=== PATIENT | male | born 1970 | race Caucasian/White ===

== ENCOUNTER 2017-09-16 13:33 | Emergency (ER) | payer OTHER, SELFPAY ==
[2017-09-16 13:34] VITALS: BP 146/88; PULSE 87; RESP 24; TEMP 36; O2SAT 96; BMI 38.9
--- NOTE | 2017-09-16 15:04 | RAD_ITS ---
STUDY: X-RAY - ABDOMEN/PELVIS REASON FOR EXAM: Male, 47 years old. Constipation. Recent gastric sleeve surgery. TECHNIQUE: Two AP supine views of the abdomen and pelvis. COMPARISON: None. FINDINGS: Normal visualized lung bases. There is a moderate amount of colonic fecal material. The visualized liver, spleen and kidneys are grossly normal in size and morphology. Normal soft tissue structures. There are diffuse degenerative changes of the visualized lumbar spine. RAD/Abdomen Single View IMPRESSION: Moderate degree of fecal material is seen in the colon. Electronically Signed: Thor Garcia MD at 15:30 EDT Tel [phone], Service support ,
--- NOTE | 2017-09-16 16:33 | ED.DCSUM_ITS ---
- ER Visit Summary Date of Service: 09/16/17 Chief Complaint: Constipation History of Present Illness: The patient is a [address] Beatty. Patient had a gastric sleeve placed September 02 at [facility]. He reports that he had been taking only liquids until 3 days ago when he began taking some solids. Reports he has not had a bowel movement for the past 3 days. States that he feels as though he needs to go but that it is too big and hard to pass. He denies any abdominal pain. No nausea or vomiting. Review of systems is otherwise negative. Physical Examination: Vitals: Stable. Afebrile. General: Well-nourished and well-developed. Head: Normocephalic atraumatic. Neck: Supple, no lymphadenopathy. No JVD. Nontender. Cardiovascular: Regular rate and rhythm. No murmurs. Respiratory: No respiratory distress. Clear to auscultation bilaterally. Abdominal: Soft, nontender, nondistended, normal bowel sounds. No guarding, rebound, or peritoneal signs. Rectal: Soft, brown stool in the vault. Back: Nontender. Extremities: Nontender, no edema. Skin: Normal color, no rash. Neurologic: Alert and oriented ?3. Cranial nerves II through XII are intact. Normal strength and sensation. Psych: Normal affect. Test Results: Three-view of the abdomen shows a nonspecific bowel gas pattern with a large amount of stool in the rectum. Emergency Department Course and Treatment: Patient refused pain or nausea medications. He had a soapsuds enema with large results. Treatment Plan: Patient will be discharged with magnesium citrate. Instructed to follow-up Dr. Beatty in 1-2 days not improving. Return to the emergency department for any worsening symptoms. Disposition: To home in improved and stable condition. Impression: 1. Constipation. 2. 14 day status post gastric sleeve. This note was generated with [employer] dictation software. It may contain incorrect words, spelling, and punctuation that were not noted in review of the chart prior to signing ED Disposition - Plan for ED Patient: Disposition: Home or Assisted Living Chief Complaint: Constipation Instructions: ED Constipation Prescriptions: Magnesium Citrate [Citrate Of Magnesia] 300 ml PO X1 #300 ml Referrals: Renzo Beatty, [Primary Care Provider] - 1-2 Days if not improving
[2017-09-16 16:46] VITALS: BP 139/83; PULSE 75; RESP 18; O2SAT 99
== END 2017-09-16 16:46 | disposition home or self-care (01) ==
PROVIDERS: Emergency Provider Emergency Medicine; Family Provider Family Medicine; PCP Family Medicine
DX: K59.00 Constipation, unspecified (principal); E11.9 Type 2 diabetes mellitus without complications; I10 Essential (primary) hypertension; Z98.84 Bariatric surgery status
CPT/HCPCS: 74018; 99284

== ENCOUNTER → 2017-10-24 07:24 | Outpatient (CLI) | payer OTHER, SELFPAY ==
[2017-10-24 08:25] LABS: Hematocrit 46.8 % (40-54); Hemoglobin 15.3 g/dl (13.0-16.5); Mean Corp Hgb Conc 32.7 g/gl (32-36); Mean Corpuscular Hgb 29.7 pg (27.0-32.0); Mean Corpuscular Volume 90.7 fL (80-94); Mean Platelet Vol. 11.7 fl (6.2-12.0); Platelet Count 170 K/mm3 (150-450); RBC Distribution Width CV 14.8 % (11.6-14.6); RBC Distribution Width SD 49.1 fl (35.1-43.9); Red Blood Count 5.16 M/mm3 (4.6-6.2); White Blood Count 3.5 K/mm3 (4.4-11.0)
[2017-10-24 08:29] LABS: Scan Indicated on CBC? Y/N NO
[2017-10-24 09:02] LABS: PTHIN 28.4 pg/mL (18.4-80.1); Vitamin B12 476 pg/mL (211-911); Vitamin D,25 Hydroxy 44.5 ng/mL (29.95-100.01)
[2017-10-24 09:33] LABS: Anion Gap 8 (5-15); BUN 15 mg/dL (7-18); BUN/Creat Ratio 15.4 RATIO (10-20); Calcium,Total 8.9 mg/dL (8.5-10.1); Chloride 108 mmol/L (98-107); Creatinine, Serum 0.97 mg/dL (0.70-1.30); EST Glomerular Filtration Rate 87 mL/min (>60); Est Glom Filt Rate - Afr Amer 105 mL/min (>60); Ferritin 255 ng/mL (26-388); Glucose 79 mg/dL (74-106); Iron 73 ug/dL (65-175); Iron Binding Capacity,Total 308 ug/dL (250-450); Potassium 3.8 mmol/L (3.5-5.1); Sodium Level 143 mmol/L (136-145)
[2017-10-28 09:58] LABS: Vitamin B1, Thiamine 157.6 nmol/L (66.5-200.0)
== END ==
PROVIDERS: Family Provider Family Medicine; PCP Family Medicine
DX: E56.9 Vitamin deficiency, unspecified (principal); Z98.84 Bariatric surgery status
CPT/HCPCS: 80048; 82306; 82607; 82728; 82746; 83540; 83550; 83970; 84425; 85027

== ENCOUNTER 2017-11-26 19:38 | Emergency (ER) | payer OTHER, SELFPAY ==
[2017-11-26 19:39] VITALS: BP 140/96; PULSE 61; RESP 16; TEMP 35.9; O2SAT 100; BMI 34.8
--- NOTE | 2017-11-26 20:00 | ED.VISSUMM ---
- ER Visit Summary Date of Service: 11/26/17 Chief Complaint: Left ring finger laceration History of Present Illness: The patient is a 47 M was cutting vegetables 1-2 hours ago. He denies any cut the tip of the left ring finger. Patient is right-hand dominant. Has no idea when his last tetanus shot was and believes it may be greater than 10 years ago. Denies other injuries. Physical Examination: Well-appearing middle-age male. No acute distress. Vital signs stable afebrile. HEENT exam unremarkable. Lungs clear to auscultation. Heart regular rhythm no murmur. Abdomen soft nontender. Moving all 4 extremities. Neurovascularly intact. The very tip of his left ring finger is a flap laceration is currently closed no longer bleeding. Otherwise the hand is neurovascularly infection. He has normal range of motion. Normal touch sensation. Test Results: None Emergency Department Course and Treatment: Tetanus will be updated. Wound will be cleaned and dressed. No need to suture repair. Treatment Plan: Clean and dressed. Wound care. Disposition: Discharge Impression: Left ring finger flap laceration no repair Tetanus updated This note was generated with [employer] dictation software. It may contain incorrect words, spelling, and punctuation that were not noted in review of the chart prior to signing ED Disposition - Plan for ED Patient: Chief Complaint: Laceration Referrals: Renzo Beatty DO [Primary Care Provider] -
--- NOTE | 2017-11-26 20:02 | ED.DEP ---
ED Disposition - Plan for ED Patient: Disposition: Home or Assisted Living Chief Complaint: Laceration Instructions: ED Laceration Hand Referrals: Renzo Beatty DO [Primary Care Provider] - As Needed Additional Instructions: Keep dressing dry and clean. Do not remove the dressing for 4 days as well as his stays dry and clean.
== END 2017-11-26 20:16 | disposition home or self-care (01) ==
PROVIDERS: Emergency Provider Emergency Medicine; Family Provider Family Medicine; PCP Family Medicine
DX: S61.215A Laceration without foreign body of left ring finger without damage to nail, initial encounter (principal); W26.0XXA Contact with knife, initial encounter; Y93.9 Activity, unspecified; Y92.89 Other specified places as the place of occurrence of the external cause; Y99.9 Unspecified external cause status; Z23 Encounter for immunization; K21.9 Gastro-esophageal reflux disease without esophagitis
CPT/HCPCS: 99282

== ENCOUNTER → 2017-12-06 09:37 | Outpatient (CLI) | payer OTHER, SELFPAY ==
[2017-12-06 10:51] LABS: Hematocrit 45.2 % (40-54); Hemoglobin 15.3 g/dl (13.0-16.5); Mean Corp Hgb Conc 33.8 g/gl (32-36); Mean Corpuscular Hgb 30.8 pg (27.0-32.0); Mean Corpuscular Volume 91.1 fL (80-94); Mean Platelet Vol. 11.4 fl (6.2-12.0); Platelet Count 185 K/mm3 (150-450); RBC Distribution Width CV 14.1 % (11.6-14.6); RBC Distribution Width SD 46.3 fl (35.1-43.9); Red Blood Count 4.96 M/mm3 (4.6-6.2); White Blood Count 4.8 K/mm3 (4.4-11.0)
[2017-12-06 10:53] LABS: Scan Indicated on CBC? Y/N NO
[2017-12-06 11:44] LABS: Anion Gap 7 (5-15); BUN 15 mg/dL (7-18); BUN/Creat Ratio 17.2 RATIO (10-20); Calcium,Total 8.7 mg/dL (8.5-10.1); Chloride 106 mmol/L (98-107); Creatinine, Serum 0.87 mg/dL (0.70-1.30); EST Glomerular Filtration Rate 99 mL/min (>60); Est Glom Filt Rate - Afr Amer 120 mL/min (>60); Ferritin 186 ng/mL (26-388); Glucose 77 mg/dL (74-106); Iron 62 ug/dL (65-175); Iron Binding Capacity,Total 288 ug/dL (250-450); PERCENT IRON SATURATION 21.5 % (15.0-55.0); Sodium Level 143 mmol/L (136-145)
[2017-12-08 09:07] LABS: Vitamin B12 462 pg/mL (211-911)
== END ==
PROVIDERS: Family Provider Family Medicine; PCP Family Medicine
DX: E56.9 Vitamin deficiency, unspecified (principal); Z98.84 Bariatric surgery status
CPT/HCPCS: 36415; 80048; 82607; 82728; 82746; 83540; 83550; 84425; 85027

== ENCOUNTER → 2017-12-31 07:14 | Outpatient (CLI) | payer OTHER, SELFPAY ==
[2017-12-31 08:22] LABS: Absolute Lymphocyte Count 1.95 X10^3/ul (0.83-4.51); Absolute Neutrophil Count 4.5 X10^3/uL (2.0-7.7); Basophil# 0.02 X10^3/uL; Basophil% 0.3 % (0-1); Eosinophil# 0.08 X10^3/uL; Eosinophils% 1.1 % (0-5); Hematocrit 47.7 % (40-54); Hemoglobin 15.5 g/dl (13.0-16.5); Lymphocyte # 1.95 X10^3/ul (4.0); Lymphocyte % 27.6 % (19-41); Mean Corp Hgb Conc 32.5 g/gl (32-36); Mean Corpuscular Hgb 29.7 pg (27.0-32.0); Mean Corpuscular Volume 91.4 fL (80-94); Mean Platelet Vol. 11.5 fl (6.2-12.0); Monocyte# 0.54 X10^3/uL; Monocyte% 7.6 % (0-10); Neutrophil # 4.47 X10^3/uL (2.7-7.7); Neutrophil % 63.4 % (47-70); Platelet Count 234 K/mm3 (150-450); RBC Distribution Width CV 13.6 % (11.6-14.6); RBC Distribution Width SD 45.3 fl (35.1-43.9); Red Blood Count 5.22 M/mm3 (4.6-6.2); White Blood Count 7.1 K/mm3 (4.4-11.0)
[2017-12-31 08:24] LABS: Hemoglobin A1c 4.8 % (4.2-6.3)
[2017-12-31 08:34] LABS: POSITIVE COUNT NO; POSITIVE DIFFERENTIAL NO; POSITIVE MORPHOLOGY NO
[2017-12-31 08:37] LABS: Anion Gap 9 (5-15); BUN 15 mg/dL (7-18); BUN/Creat Ratio 16.9 RATIO (10-20); Calcium,Total 9.2 mg/dL (8.5-10.1); Chloride 107 mmol/L (98-107); Cholesterol 155 mg/dL (200); Creatinine, Serum 0.89 mg/dL (0.70-1.30); EST Glomerular Filtration Rate 96 mL/min (>60); Est Glom Filt Rate - Afr Amer 117 mL/min (>60); Ferritin 180 ng/mL (26-388); Glucose 82 mg/dL (74-106); High Density Lipoprotein 49 mg/dL; Iron 106 ug/dL (65-175); Potassium 3.8 mmol/L (3.5-5.1); Sodium Level 146 mmol/L (136-145); Triglycerides 98 mg/dL; Very Low Density Lipoprotein 20 mg/dL (5-40)
[2017-12-31 08:47] LABS: Vitamin B12 548 pg/mL (211-911)
== END ==
PROVIDERS: Family Provider Family Medicine; PCP Family Medicine; Visit Provider Family Medicine
DX: E11.9 Type 2 diabetes mellitus without complications (principal); I10 Essential (primary) hypertension; E78.5 Hyperlipidemia, unspecified; K76.9 Liver disease, unspecified; E66.9 Obesity, unspecified
CPT/HCPCS: 36415; 80048; 80061; 82607; 82728; 83036; 83540; 85025

== ENCOUNTER → 2018-03-16 07:30 | Outpatient (CLI) | payer OTHER, SELFPAY ==
[2018-03-16 08:50] LABS: Hematocrit 44.9 % (40-54); Hemoglobin 14.6 g/dl (13.0-16.5); Mean Corp Hgb Conc 32.5 g/gl (32-36); Mean Corpuscular Hgb 30.2 pg (27.0-32.0); Mean Corpuscular Volume 92.8 fL (80-94); Mean Platelet Vol. 11.5 fl (6.2-12.0); Platelet Count 208 K/mm3 (150-450); RBC Distribution Width CV 14.2 % (11.6-14.6); RBC Distribution Width SD 47.8 fl (35.1-43.9); Red Blood Count 4.84 M/mm3 (4.6-6.2); White Blood Count 4.7 K/mm3 (4.4-11.0)
[2018-03-16 08:51] LABS: Scan Indicated on CBC? Y/N NO
[2018-03-16 09:16] LABS: PTHIN 24.5 pg/mL (18.4-80.1); Vitamin B12 903 pg/mL (211-911); Vitamin D,25 Hydroxy 42.6 ng/mL (29.95-100.01)
[2018-03-16 09:46] LABS: Anion Gap 10 (5-15); BUN 21 mg/dL (7-18); BUN/Creat Ratio 22.4 RATIO (10-20); Calcium,Total 9.2 mg/dL (8.5-10.1); Chloride 106 mmol/L (98-107); Creatinine, Serum 0.94 mg/dL (0.70-1.30); EST Glomerular Filtration Rate 91 mL/min (>60); Est Glom Filt Rate - Afr Amer 110 mL/min (>60); Ferritin 169 ng/mL (26-388); Glucose 83 mg/dL (74-106); Iron 80 ug/dL (65-175); Iron Binding Capacity,Total 310 ug/dL (250-450); Potassium 3.7 mmol/L (3.5-5.1); Sodium Level 146 mmol/L (136-145)
[2018-03-19 08:30] LABS: Vitamin B1, Thiamine 151.4 nmol/L (66.5-200.0)
== END ==
PROVIDERS: Family Provider Family Medicine; PCP Family Medicine
DX: E66.9 Obesity, unspecified (principal); Z98.84 Bariatric surgery status
CPT/HCPCS: 36415; 80048; 82306; 82607; 82728; 82746; 83540; 83550; 83970; 84425; 85027

== ENCOUNTER → 2018-07-03 15:27 | Outpatient (CLI) | payer OTHER, SELFPAY ==
[2018-07-03 17:27] LABS: Absolute Lymphocyte Count 1.46 X10^3/ul (0.83-4.51); Absolute Neutrophil Count 6.4 X10^3/uL (2.0-7.7); Basophil# 0.01 X10^3/uL; Basophil% 0.1 % (0-1); Eosinophil# 0.02 X10^3/uL; Eosinophils% 0.2 % (0-5); Hematocrit 50.3 % (40-54); Hemoglobin 16.3 g/dl (13.0-16.5); Lymphocyte # 1.46 X10^3/ul (4.0); Lymphocyte % 16.6 % (19-41); Mean Corp Hgb Conc 32.4 g/gl (32-36); Mean Corpuscular Hgb 30.2 pg (27.0-32.0); Mean Corpuscular Volume 93.1 fL (80-94); Mean Platelet Vol. 11.4 fl (6.2-12.0); Monocyte# 0.88 X10^3/uL; Neutrophil # 6.42 X10^3/uL (2.7-7.7); Neutrophil % 72.9 % (47-70); Platelet Count 222 K/mm3 (150-450); RBC Distribution Width CV 13.8 % (11.6-14.6); RBC Distribution Width SD 45.8 fl (35.1-43.9); White Blood Count 8.8 K/mm3 (4.4-11.0)
[2018-07-03 17:30] LABS: POSITIVE COUNT NO; POSITIVE DIFFERENTIAL NO; POSITIVE MORPHOLOGY NO
[2018-07-03 17:42] LABS: ALB/GLOB Ratio 1.3 RATIO (0.9-2.4); AST(SGOT) 13 U/L (15-37); Alanine Aminotransfer ALT/SGPT 28 U/L (16-61); Alkaline Phosphatase 46 U/L (45-117); Anion Gap 7 (5-15); BUN 31 mg/dL (7-18); BUN/Creat Ratio 27.9 RATIO (10-20); Calcium,Total 9.1 mg/dL (8.5-10.1); Chloride 107 mmol/L (98-107); Creatinine, Serum 1.11 mg/dL (0.70-1.30); EST Glomerular Filtration Rate 75 mL/min (>60); Est Glom Filt Rate - Afr Amer 90 mL/min (>60); Glucose 93 mg/dL (74-106); Potassium 4.8 mmol/L (3.5-5.1); Sodium Level 144 mmol/L (136-145)
== END ==
PROVIDERS: Family Provider Family Medicine; PCP Family Medicine; Visit Provider Family Medicine
DX: Z01.818 Encounter for other preprocedural examination (principal); I10 Essential (primary) hypertension
CPT/HCPCS: 36415; 80053; 85025

== ENCOUNTER 2018-07-09 06:04 | Day surgery (SDC) | payer OTHER, SELFPAY ==
[2018-07-09] VITALS (11 sets, daily range): BP systolic 126–141; BP diastolic 71–91; PULSE 43–54; RESP 16; TEMP 36.3–36.9; O2SAT 98–100; BMI 30.4
--- NOTE | 2018-07-09 07:30 | GANG_PTH ---
PATIENT: MIRIAM BURTON LOC: [facility] [place] U#:[id number] AGE/SX: 48/M ROOM: RE07/09/[address]: Dr. Ghualm Mendez DPM : 1970 BED: DIS: 07/09/2018 SPEC #: [id number] RECD: 07/09/18 11:58 STATUS: MARYA REJerry #: [id number] NOE: 07/09/18 07:[address]: Ghulam Mendez DEPT: SURGICAL PATHOLOGY RECD BY: Howard Mendez ENTERED: 07/09/18 13:22 SP TYPE: GANGLION OTHR DR: Dr. Renzo Beatty, DO Tissues: GANGLION CYST Procedures: Surgery Specimen Level III HEADER OPERATION: Excision, ganglion cyst, hallux PRE-OP DIAGNOSIS: Ganglion cyst left foot TISSUE SUBMITTED: Left foot ganglion cyst MICROSCOPIC DIAGNOSIS Soft tissue of left foot, excision: Consistent with ganglion cyst. AM:ashley 07/10/18 MICROSCOPIC DESCRIPTION Slides are reviewed. GROSS DESCRIPTION Received in fixative is one container labeled with the patient's name and designated left foot ganglion cyst. The specimen consists of an irregular fragment of rubbery pink-white soft tissue measuring 1.6 x 1.5 x 0.8 cm. The specimen is sectioned and totally submitted in one cassette. / AM:ashley 07/09/18 TC:5 CPT: 11328
[2018-07-09] MEDS: Bupivacaine Mpf 0.5% 30 ML VIAL (07:40)
--- NOTE | 2018-07-09 08:19 | PCM.OPRPT ---
Report of Operation Date of Procedure: 07/09/18 Pre-Operative Diagnosis: Ganglionic cyst left great toe Post-Operative Diagnosis: Ganglionic cyst left great toe Surgery/Procedure Performed:: Excision of ganglionic cyst left great toe Description of Surgical Findings:: Patient was placed on the table in the supine position after I spoke IV sedation was mastered local anesthetic was injected. The foot was prepped and draped in usual sterile fashion elevated and exsanguinated. 2 semielliptical incisions were made around the plantar lateral great toe mass. The skin ellipse was resected. The cyst was easily dissected free from the underlying long flexor tendon. The tendon remained intact. Sent cyst was sent to pathology for identification. 4-0 nylon was used to repair the wound. Dry sterile dressing was applied. Patient tolerated the anesthesia procedure well. Cyst was about 1.5 cm x 2 cm multilobulated extending from the flexor tendon on the plantar left great toe. This material was clear and gelatinous and blood-tinged typical of synovial cyst/ganglionic cyst. Type of Anesthesia:: MAC/Supplemental/Local - Local anesthesia with IV sedation Specimen's removed: Ganglionic cyst sent to pathology Estimated Blood Loss (mL): 2ml - Complications None - Admit VTE Documentation VTE Mechan Device Prophylaxis: SCD's - SCDs applied
--- NOTE | 2018-07-09 08:22 | EKG12_ITS ---
Test Reason : CP Blood Pressure : / mmHG Vent. Rate : 044 BPM Atrial Rate : 044 BPM P-R Int : 142 ms QRS Dur : 090 ms QT Int : 446 ms P-R-T Axes : 000 000 016 degrees QTc Int : 381 ms Marked sinus bradycardia Abnormal ECG When compared with ECG of 25-APR-2017 08:42, No significant change was found Confirmed by MITCH BOWEN ([id number]), international editorial producer DOUGLAS JOHNS ([id number]) on 07/13/2018 5:01:43 PM Referred By: Ghulam Mendez Confirmed By:MITCH BOWEN
--- NOTE | 2018-07-09 08:23 | OP.PCM_ITS ---
Report of Operation Date of Procedure: 07/09/18 Pre-Operative Diagnosis: Ganglionic cyst left great toe Post-Operative Diagnosis: Ganglionic cyst left great toe Surgery/Procedure Performed:: Excision of ganglionic cyst left great toe Description of Surgical Findings:: Patient was placed on the table in the supine position after I spoke IV sedation was mastered local anesthetic was injected. The foot was prepped and draped in usual sterile fashion elevated and exsanguinated. 2 semielliptical incisions were made around the plantar lateral great toe mass. The skin ellipse was resected. The cyst was easily dissected free from the underlying long flexor tendon. The tendon remained intact. Sent cyst was sent to pathology for identification. 4-0 nylon was used to repair the wound. Dry sterile dressing was applied. Patient tolerated the anesthesia procedure well. Cyst was about 1.5 cm x 2 cm multilobulated extending from the flexor tendon on the plantar left great toe. This material was clear and gelatinous and blood- tinged typical of synovial cyst/ganglionic cyst. Type of Anesthesia:: MAC/Supplemental/Local - Local anesthesia with IV sedation Specimen's removed: Ganglionic cyst sent to pathology Estimated Blood Loss (mL): 2ml - Complications None - Admit VTE Documentation VTE Mechan Device Prophylaxis: SCD's - SCDs applied
== END 2018-07-09 10:15 | disposition home or self-care (01) ==
LOC: SDC 06:04 → AC 06:06
PROVIDERS: Family Provider Family Medicine; PCP Family Medicine; Referring Provider Podiatrist Foot & Ankle Surgery; Visit Provider Podiatrist Foot & Ankle Surgery
DX: M67.472 Ganglion, left ankle and foot (principal); Z01.818 Encounter for other preprocedural examination; I10 Essential (primary) hypertension; R00.1 Bradycardia, unspecified; G47.33 Obstructive sleep apnea (adult) (pediatric); Z98.890 Other specified postprocedural states; K21.9 Gastro-esophageal reflux disease without esophagitis; E78.00 Pure hypercholesterolemia, unspecified
CPT/HCPCS: 28090; 88304; 93005; J7120

== ENCOUNTER → 2018-07-23 14:45 | Outpatient (CLI) | payer OTHER, SELFPAY ==
[2018-07-09 06:29] VITALS: BMI 30.4
--- NOTE | 2018-07-23 15:00 | RAD_ITS ---
STUDY: X-RAY - LUMBAR SPINE REASON FOR EXAM: Male, 48 years old. Low back pain. TECHNIQUE: 3 view(s) of the lumbar spine were obtained. COMPARISON: None FINDINGS: Normal lumbar lordosis. There is mild dextroscoliosis. There is grade 1 anterolisthesis of L5 over S1. There is multilevel endplate spondylosis of the lumbar vertebrae. There is severe disc space narrowing of L5-S1 with vacuum disc and moderate disc space narrowing of L3-L4. There is no demonstrated fracture. There is probably bilateral spondylolysis at L5. The soft tissue structures are unremarkable. RAD/Lumbar Spine 2 or 3 Views IMPRESSION: Degenerative changes of the spine, as detailed above. Electronically Signed: Derek Russell MD at 8:22 EDT Tel , Service support ,
[2018-07-23 15:36] LABS: Amphetamine Urine VISTA NEGATIVE (<1000 ng/mL); Barbiturate Urine VISTA NEGATIVE (< 200 ng/mL); Benzodiazepine Urine VISTA NEGATIVE (< 200 ng/mL); Cocaine Urine VISTA NEGATIVE (< 300 ng/mL); Ecstacy Urine VISTA NEGATIVE (< 500 ng/mL); Methadone Urine VISTA NEGATIVE (< 300 ng/mL); PCP Urine VISTA NEGATIVE (< 25 ng/mL); THC Urine VISTA NEGATIVE (< 50 ng/mL); Vista UDS pH Range 5
== END ==
PROVIDERS: Family Provider Family Medicine; PCP Family Medicine; Referring Provider Anesthesiology Pain Medicine; Visit Provider Anesthesiology Pain Medicine
DX: M54.9 Dorsalgia, unspecified (principal); F11.20 Opioid dependence, uncomplicated
CPT/HCPCS: 72100; 80307

== ENCOUNTER 2018-07-29 11:09 | Emergency (ER) | payer OTHER, SELFPAY ==
[2018-07-09 06:29] VITALS: BMI 30.4
[2018-07-29 11:10] VITALS: BP 162/95; PULSE 70; RESP 17; TEMP 36.8; O2SAT 93; BMI 29.2
--- NOTE | 2018-07-29 11:48 | ED.VIS.GEN ---
History of Present Illness Chief Complaint: Upper Extremity Injury Detail of Chief Complaint: left index finger Informant: Patient Onset: Today - JPTA Context: Sudden Onset - caught between 2 logs while using a log splitter Timing: Continuous Quality: pain/pressure Location: left distal index finger Current Severity: Severe Maximum Severity: Severe Worsened by: palpation Relieved by: holding overhead Associated Symptoms: numbness to radial aspect of middle finger Narrative: RHD. Last tetanus unknown, likely more than 10 yrs. - Past Medical History (1) HTN (hypertension) Status: Chronic (2) GERD (gastroesophageal reflux disease) Status: Chronic Past Medical History - Allergies and Home Meds Allergies/Adverse Reactions: Allergies olmesartan medoxomil [From Benicar] Allergy (Verified 07/29/18 11:09) Itching Primary Care Physician: Renzo Beatty DO [Primary Care Provider] - Lives: Spouse/ Significant Other Smoking Status: Never smoker Review of Systems Musculoskeletal: Reports: Swelling - finger, Extremity Pain. Denies: Neck pain, Back pain Neurological: Reports: Parasthesia. Denies: Weakness Physical Exam Vital Signs/Narrative: Vital Signs Temp Pulse Resp BP Pulse Ox 07/29/18 11:10 98.2 F 70 17 162/95 H 93 Inital Vital Signs reviewed: Yes General: Well nourished, Well developed, Acute Distress - moderate due to finger pain Head: Normocephalic, Atraumatic Extremities: Tenderness - mod-sv distal phalanx of left index finger. FDS, FDP, extensor intact. ecchymosis present patchy throughout pad, distal laceration/split at tip 1cm total, stops before nail/bed. possibly small subungual hematoma near base, subtle. No tenderness to long finger or rest of hand. no other signs of trauma. all tendon function intact. Skin: Trauma - laceration to tip of left index finger; no other breaks in skin. Neurological: Alert, Oriented x3, Cranial nerves II-XII grossly intact, Normal Strength, Normal Gait, Parasthesia - radial aspect left long finger. intact 2-pt discrimination all fingers, including injured index and long. Psychological: Normal affect Diagnostic/Tx/Re-eval - Medical Decision Making He has a tuft fracture and no other associated bony injuries of the hand. The laceration appears to be superficial and probably a result of increased pressure in the distal phalanx. My suspicion is that it does not communicate with the bone, and it is probably not a true open fracture but I am treating it as one just in case, by giving the patient antibiotics prophylactically. He does not need to see orthopedics emergently. I advised outpatient follow-up in 10-14 days for reevaluation and suture removal, using a cage splint immobilizing the DIP joint in the meantime. He is also given some [place]em[place] for pain. Procedures - Lacerations left index finger Length: 1 cm Depth: Skin Shape: Linear Prep: Sterile Conditions, Chlorhexadine Laceration repair: Digital block, Lidocaine Irrigated (ml): 20 Number of Sutures/[place]: 3 Suture Information: Ethilon, Simple, 5-0 Procedure(s): Digital Block --isopropanol prep dorsal left index metacarpophalangeal joint, injected approximately 6 cc of plain 1% lidocaine bilaterally from dorsal approach only, with good anesthesia. Aspirated to ensure no arterial injection. Nail trephination --after digital block performed, nail distally was prepped with chlorhexidine and trephinated with a local temperature electrocautery device. Some blood was expressible, not a lot. Mild improvement in pressure of distal phalanx. Aided in closure of fingertip laceration. ED Disposition - Plan for ED Patient: Disposition: Home or Assisted Living Diagnosis: Open fracture of tuft of distal phalanx of finger, Subungual hematoma of finger of left hand Instructions: Subungual Hematoma, ED Laceration Hand, ED Fx Finger Open Prescriptions: Hydrocodone Bitart/Apap 5-325 [Jemison 5MG-325MG] 1 tablet PO Q4H PRN PRN 2 Days #10 tablet PRN Reason: Pain Cefadroxil [Duricef] 500 mg PO BID #10 capsule Referrals: Rickey Mustafa DO [STAFF PHYSICIAN] - 10-14 Days suture removal (or return to ER if worsening appearance/pain beforehand)
--- NOTE | 2018-07-29 11:54 | ED.DCSUM_ITS ---
History of Present Illness Chief Complaint: Upper Extremity Injury Detail of Chief Complaint: left index finger Informant: Patient Onset: Today - JPTA Context: Sudden Onset - caught between 2 logs while using a log splitter Timing: Continuous Quality: pain/pressure Location: left distal index finger Current Severity: Severe Maximum Severity: Severe Worsened by: palpation Relieved by: holding overhead Associated Symptoms: numbness to radial aspect of middle finger Narrative: RHD. Last tetanus unknown, likely more than 10 yrs. - Past Medical History (1) HTN (hypertension) Status: Chronic (2) GERD (gastroesophageal reflux disease) Status: Chronic Past Medical History - Allergies and Home Meds Allergies/Adverse Reactions: Allergies olmesartan medoxomil [From Benicar] Allergy (Verified 07/29/18 11:09) Itching Primary Care Physician: Renzo Beatty DO [Primary Care Provider] - Lives: Spouse/ Significant Other Smoking Status: Never smoker Review of Systems Musculoskeletal: Reports: Swelling - finger, Extremity Pain. Denies: Neck pain, Back pain Neurological: Reports: Parasthesia. Denies: Weakness Physical Exam Vital Signs/Narrative: Vital Signs Temp Pulse Resp BP Pulse Ox 07/29/18 11:10 98.2 F 70 17 162/95 H 93 Inital Vital Signs reviewed: Yes General: Well nourished, Well developed, Acute Distress - moderate due to finger pain Head: Normocephalic, Atraumatic Extremities: Tenderness - mod-sv distal phalanx of left index finger. FDS, FDP, extensor intact. ecchymosis present patchy throughout pad, distal laceration/spl it at tip 1cm total, stops before nail/bed. possibly small subungual hematoma near base, subtle. No tenderness to long finger or rest of hand. no other signs of trauma. all tendon function intact. Skin: Trauma - laceration to tip of left index finger; no other breaks in skin. Neurological: Alert, Oriented x3, Cranial nerves II-XII grossly intact, Normal Strength, Normal Gait, Parasthesia - radial aspect left long finger. intact 2-pt discrimination all fingers, including injured index and long. Psychological: Normal affect Diagnostic/Tx/Re-eval - Medical Decision Making He has a tuft fracture and no other associated bony injuries of the hand. The laceration appears to be superficial and probably a result of increased pressure in the distal phalanx. My suspicion is that it does not communicate with the bone, and it is probably not a true open fracture but I am treating it as one just in case, by giving the patient antibiotics prophylactically. He does not need to see orthopedics emergently. I advised outpatient follow-up in 10-14 days for reevaluation and suture removal, using a cage splint immobilizing the DIP joint in the meantime. He is also given some [place] for pain. Procedures - Lacerations left index finger Length: 1 cm Depth: Skin Shape: Linear Prep: Sterile Conditions, Chlorhexadine Laceration repair: Digital block, Lidocaine Irrigated (ml): 20 Number of Sutures/Sha[place]: 3 Suture Information: Ethilon, Simple, 5-0 Procedure(s): Digital Block --isopropanol prep dorsal left index metacarpophalangeal joint, injected approximately 6 cc of plain 1% lidocaine bilaterally from dorsal approach only, with good anesthesia. Aspirated to ensure no arterial injection. Nail trephination --after digital block performed, nail distally was prepped with chlorhexidine and trephinated with a local temperature electrocautery device. Some blood was expressible, not a lot. Mild improvement in pressure of distal phalanx. Aided in closure of fingertip laceration. ED Disposition - Plan for ED Patient: Disposition: Home or Assisted Living Diagnosis: Open fracture of tuft of distal phalanx of finger, Subungual hematoma of finger of left hand Instructions: Subungual Hematoma, ED Laceration Hand, ED Fx Finger Open Prescriptions: Hydrocodone Bitart/Apap 5-325 [[place] 5MG-325MG] 1 tablet PO Q4H PRN PRN 2 Days #10 tablet PRN Reason: Pain Cefadroxil [Duricef] 500 mg PO BID #10 capsule Referrals: Rickey Mustafa DO [STAFF PHYSICIAN] - 10-14 Days suture removal (or return to ER if worsening appearance/pain beforehand)
[2018-07-29] MEDS: Diphth,Pertuss(Acell),Tet Vac 0.5 ML Vial IM (11:55)
--- NOTE | 2018-07-29 11:55 | RAD_ITS ---
STUDY: X-RAY - LEFT HAND REASON FOR EXAM: Male, 48 years old. Injury to the tip of the second digit. TECHNIQUE: 3 view(s) of the hand. COMPARISON: None. FINDINGS: Normal radiocarpal articulation. Normal distal radioulnar joint. Normal visualized carpal bones. Normal carpal articulations Normal carpometacarpal articulation of the thumb. Normal second through fifth carpometacarpal joints. Normal metacarpi. Normal metacarpophalangeal joint of the thumb. Normal interphalangeal joint of the thumb. Normal proximal and distal phalanges of the thumb. Normal metacarpophalangeal joints of the second through fifth fingers. Normal proximal and distal interphalangeal joints of the second through fifth fingers. Nondisplaced fracture involving the tuft of the distal phalanx of the index finger. Soft tissue swelling. RAD/Hand Min 3 Views IMPRESSION: Nondisplaced fracture of the tuft of the distal pharynx of the index finger. Electronically Signed: Thor Garcia, at 12:36 EDT , Service support ,
[2018-07-29 13:09] VITALS: BP 159/96; PULSE 59; RESP 17
== END 2018-07-29 13:11 | disposition home or self-care (01) ==
PROVIDERS: Emergency Provider Emergency Medicine; Family Provider Family Medicine; PCP Family Medicine
DX: S62.661B Nondisplaced fracture of distal phalanx of left index finger, initial encounter for open fracture (principal); S60.122A Contusion of left index finger with damage to nail, initial encounter; W23.1XXA Caught, crushed, jammed, or pinched between stationary objects, initial encounter; Y93.89 Activity, other specified; Y92.9 Unspecified place or not applicable; K21.9 Gastro-esophageal reflux disease without esophagitis
CPT/HCPCS: 11740; 73130; 90471; 90715; 99283

== ENCOUNTER → 2018-08-07 20:00 | Outpatient (CLI) | payer OTHER, SELFPAY ==
[2018-07-09 06:29] VITALS: BMI 30.4
== END ==
PROVIDERS: Family Provider Family Medicine; PCP Family Medicine; Referring Provider Family Medicine; Visit Provider Family Medicine
DX: G47.33 Obstructive sleep apnea (adult) (pediatric) (principal)
CPT/HCPCS: 95811

== ENCOUNTER → 2018-09-22 07:15 | Outpatient (CLI) | payer OTHER, SELFPAY ==
[2018-08-14 08:33] VITALS: BMI 29.2
[2018-09-22 07:52] LABS: Hematocrit 44.8 % (40-54); Hemoglobin 15.4 g/dl (13.0-16.5); Mean Corp Hgb Conc 34.4 g/gl (32-36); Mean Corpuscular Hgb 30.9 pg (27.0-32.0); Mean Corpuscular Volume 89.8 fL (80-94); Mean Platelet Vol. 11.1 fl (6.2-12.0); Platelet Count 187 K/mm3 (150-450); RBC Distribution Width CV 13.6 % (11.6-14.6); RBC Distribution Width SD 44.1 fl (35.1-43.9); Red Blood Count 4.99 M/mm3 (4.6-6.2); White Blood Count 4.9 K/mm3 (4.4-11.0)
[2018-09-22 07:57] LABS: Scan Indicated on CBC? Y/N NO
[2018-09-22 09:01] LABS: Vitamin B12 936 pg/mL (211-911)
[2018-09-22 09:32] LABS: Anion Gap 5 (5-15); BUN 18 mg/dL (7-18); BUN/Creat Ratio 20.1 RATIO (10-20); Calcium,Total 8.9 mg/dL (8.5-10.1); Chloride 106 mmol/L (98-107); EST Glomerular Filtration Rate 95 mL/min (>60); Est Glom Filt Rate - Afr Amer 115 mL/min (>60); Ferritin 150 ng/mL (26-388); Glucose 75 mg/dL (74-106); Iron 72 ug/dL (65-175); Iron Binding Capacity,Total 294 ug/dL (250-450); Potassium 3.7 mmol/L (3.5-5.1); Sodium Level 142 mmol/L (136-145)
[2018-09-28 11:28] LABS: Vitamin B1, Thiamine 189.8 nmol/L (66.5-200.0)
== END ==
PROVIDERS: Family Provider Family Medicine; PCP Family Medicine
DX: G47.33 Obstructive sleep apnea (adult) (pediatric) (principal); Z99.89 Dependence on other enabling machines and devices; Z98.84 Bariatric surgery status; E66.01 Morbid (severe) obesity due to excess calories; K21.9 Gastro-esophageal reflux disease without esophagitis; E11.9 Type 2 diabetes mellitus without complications
CPT/HCPCS: 80048; 82607; 82728; 82746; 83540; 83550; 84425; 85027

== ENCOUNTER 2019-02-07 09:28 | Emergency (ER) | payer OTHER, SELFPAY ==
[2019-02-07 08:19] VITALS: BMI 29.2
[2019-02-07 09:30] VITALS: BP 147/89; PULSE 53; RESP 18; TEMP 36.8; O2SAT 99; BMI 31.1
--- NOTE | 2019-02-07 09:54 | ED.VISSUMM ---
- ER Visit Summary Date of Service: 02/07/19 Chief Complaint: Left lower leg redness History of Present Illness: The patient is a 48 M history of hypertension and one DVT after bariatric surgery. Basically he had an old superficial laceration of left lower leg on a nail a week or so ago and last 2 days he developed a redness to his left lower leg. Mild discomfort. No fever or chills. He was treated in urgent care earlier data sodium on Keflex 4 times daily for 10 days. They also want him to be seen in the ER for possible rule out of the DVT. He has had no recent travel, surgery or immobilization. Clinically this is cellulitis. Physical Examination: Well appearing middle-aged male. No acute distress. Vital signs are stable afebrile. Pulse ox 99% on room air no hypoxia. HEENT exam unremarkable. Neck nontender. Lungs clear to auscultation bilaterally. Heart regular rhythm no murmur rate about 60. Abdomen soft and nontender normal bowel sounds no peritoneal signs. Patient is moving all 4 extremities. Neurovascular intact. His left lower leg laterally and distally there is a redness and slight warmth consistent with cellulitis. There is about a 8 to 12 inch area with about 4 inches in width. There is no streaks up his leg. There is no inguinal lymphadenopathy. There is no joint involvement. His left foot is neurovascularly intact with a DP pulse. Normal motor strength and some normal range of motion to his left hip, knee and ankle. Right lower extremity is unremarkable. Calves are nontender and there is no edema. No cords. Test Results: None Emergency Department Course and Treatment: I discussed with the patient and his . She actually works here in the hospital. He has no reason to have a DVT at this time. Clinically this is cellulitis. They are comfortable with deferring the ultrasound at this time. He will also be written for Bactrim on top of his Keflex prescription and follow-up as needed. Return if worse. Will be given his first dose of Keflex and Bactrim prior to discharge. Treatment Plan: Keflex 4 times daily for 10 days. Bactrim twice daily for 10 days. Follow-up if not improving or return if worse. Disposition: Discharge Impression: Acute left lower extremity cellulitis This note was generated with [employer] dictation software. It may contain incorrect words, spelling, and punctuation that were not noted in review of the chart prior to signing ED Disposition - Plan for ED Patient: Referrals: Renzo Beatty DO [Primary Care Provider] -
--- NOTE | 2019-02-07 09:58 | ED.DEP ---
ED Disposition - Plan for ED Patient: Disposition: Home or Assisted Living Instructions: Cellulitis Prescriptions: Smz/Tmp Ds [Bactrim Ds] 1 tab PO BID #20 tab Prescription Printed Referrals: Renzo Beatty DO [Primary Care Provider] - 1 Week if not improving Additional Instructions: Keflex 4 times a day for 10 days. Bactrim twice a day for 10 days. Elevate your leg to decrease swelling. Tylenol and/or Motrin for pain. Follow-up with not improving or return the ER if you start feeling a lot worse including fever, chills streaks up your leg or significant enlargement of the infected area. At this time I do not believe this is a DVT and I do not feel you need an ultrasound study. If is not improving that may be something we could do.
[2019-02-07] MEDS: Smz/Tmp Ds Tablet 1 TABLET PO (10:06)
[2019-02-07] MEDS: Cephalexin 250 MG Capsule 500 MG PO (10:06)
--- NOTE | 2019-02-07 10:14 | ED.RN ---
DISCHARGE INSTRUCTIONS GIVEN TO AND REVIEWED WITH PATIENT, PATIENT DENIES QUESTIONS OR CONCERNS AND VOICES UNDERSTANDING OF DISCHARGE INSTRUCTIONS. PT AMBULATES OUT OF ROOM WITHOUT DIFFICULTY.
== END 2019-02-07 10:16 | disposition home or self-care (01) ==
LOC: ED 10:04
PROVIDERS: Emergency Provider Emergency Medicine; Family Provider Family Medicine; PCP Family Medicine
DX: L03.116 Cellulitis of left lower limb (principal); S81.812A Laceration without foreign body, left lower leg, initial encounter; W45.0XXA Nail entering through skin, initial encounter; Y93.9 Activity, unspecified; Y92.9 Unspecified place or not applicable; I10 Essential (primary) hypertension; Z86.718 Personal history of other venous thrombosis and embolism
CPT/HCPCS: 99283

== ENCOUNTER 2020-02-18 12:00 | Outpatient (RCR) | payer OTHER, SELFPAY ==
--- NOTE | 2019-12-30 18:36 | HP.PTEVAL ---
Patient's Visit Information MIRIAM BURTON is a 49 year old M referred to Physical Therapy by Dr. Renzo Beatty DO with a diagnosis of R knee pain. Date of Evaluation: 12/30/19 Physical Therapist: Jc Horn, PT, ATC - Visit Plan Frequency: 2-3x /Week Duration: 4-6 Weeks Plan: R LE stretching and strengthening, balance and proprio, core stab ex's, bike, and HEP - Subjective Pt reports he fell off a step ladder 2 mos ago which resulted in him hurting his R knee. Pain is in the middle joint line and on the lateral aspect of his R knee. Pt notes sleep difficutly secondary to pain. Pt notes PMHx of R knee surgery secondary to OA. Pt reports he has not had xrays taken at this time. Pt reports he has to negotiate stairs one step at a time secondary to pain. 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 K knee does not give out or lock up on him. R knee pain 1/10 at rest, 7/10 at worst (when he gets out of bed and walks on it) - Pain R knee Pain Intensity (Out of 10): 1 Pain Intensity Range: 7 - Objective Neuro: B LE sensation is WNL to light touch. B Achilles reflex= 1/3. Palpation: No pain with palpation. Minor crepitus noted. No obvious deformity. Girth at joint line: L knee 39 cm, R knee 40 cm. ROM: R knee 0-125, L knee 0-115 degrees. MMT: L knee 5/5 throughout. R knee flex 4+/5, ext= 4-/5 and painful. Special tests: Pos 90/90 test, pos IT band tests, pos McConnels slign - Goals Goal 1:: Decrease R knee pain x 50% to aid with sleep Goal Time Frame: 4-6 Weeks Goal 2:: Increase R knee strength to 5/5 throughout to aid with stair negotiation Goal Time Frame: 4-6 Weeks Goal 3:: I with HEP Goal Time Frame: 4-6 Weeks - Rehabilitation Potential Physical Therapy Diagnosis: R knee pain, weakness, and limited ROM secondary to suspected menical pathology Rehabilitation Potential: Good - Anticipated Interventions Patient/Client Instruction: Educate patient on: Condition, Plan of Care For the Purpose of:: To improve self management Therapeutic Exercise to Include: Strength training, Endurance training, Balance training, Flexibilty training, Dynamic Lumbar Stabilization For the Purpose of:: To decrease pain, To improve muscle performance and motor function Cryotherapy (ice pack, ice massage): Yes For the Purpose of:: To decrease pain Thank you for the opportunity to evaluate your patient. For Medicare and Medicare HMO plans, please review the plan of care and approve it. It will need to be FAXED BACK to us at [phone] for Medicare purposes. For Medicare only, by signing this I certify the plan of care. Please let me know if there are questions or concerns regarding this plan of care. Physician Signature: Date:
--- NOTE | 2020-03-28 13:28 | HP.PTDCSUM ---
It has been my pleasure to treat MIRIAM BURTON referred by Dr. Renzo Beatty DO, with the diagnosis of R knee pain for a total of 11 visit(s). Discharge Date: Please see the following information for a summary of their discharge status. Subjective: Pt reports he is in a lot of pain with both knees today R knee Pain Intensity (Out of 10): 2 % Improvement: 50 Objective/Function: R knee pain 2/10, increases to 6/10 at worst. R knee MMT: flex= 4+/5, ext= 4-/5. Pt is I with HEP. Pt has made minimal improvements but still presents with significant pain and weakness Goal 1:: Decrease R knee pain x 50% to aid with sleep Goal Progress: Progressing Goal 2:: Increase R knee strength to 5/5 throughout to aid with stair negotiation Goal Progress: Progressing Goal 3:: I with HEP Goal Progress: Goal Met Plan: Discontinue, RTD If there are questions or concerns regarding this patient's physical therapy, please feel free to call me at [phone]. Thank you for the referral of this patient. Sincerely, Jc Horn, PT, ATC
== END 2020-02-18 19:00 | disposition home or self-care (01) ==
LOC: PT 12:00
PROVIDERS: PCP Family Medicine; Visit Provider Family Medicine
DX: M25.561 Pain in right knee (principal)
CPT/HCPCS: 97110; 97161; 97164

== ENCOUNTER → 2020-02-28 07:06 | Outpatient (CLI) | payer OTHER, SELFPAY ==
[2020-02-28 07:21] LABS: Absolute Lymphocyte Count 1.44 X10^3/uL (0.83-4.51); Absolute Neutrophil Count 3.9 X10^3/uL (2.0-7.7); Basophil# 0.05 X10^3/uL; Basophil% 0.8 % (0-1); Eosinophil# 0.13 X10^3/uL; Eosinophils% 2.1 % (0-5); Hematocrit 47.8 % (40-54); Hemoglobin 16.2 g/dL (13.0-16.5); Lymphocyte # 1.44 X10^3/ul (4.0); Lymphocyte % 23.7 % (19-41); Mean Corp Hgb Conc 33.9 g/dL (32-36); Mean Corpuscular Hgb 31.2 pg (27.0-32.0); Mean Corpuscular Volume 91.9 fL (80-94); Mean Platelet Vol. 10.6 fl (6.2-12.0); Monocyte# 0.57 X10^3/uL; Monocyte% 9.4 % (0-10); NRBC Flagged by Analyzer 0 % (0-5); Neutrophil # 3.86 X10^3/uL (2.7-7.7); Neutrophil % 63.7 % (47-70); Platelet Count 195 K/mm3 (150-450); RBC Distribution Width SD 43.4 fl (35.1-43.9); White Blood Count 6.1 K/mm3 (4.4-11.0)
[2020-02-28 08:31] LABS: Vitamin B12 > 2000 pg/mL (211-911)
[2020-02-28 08:40] LABS: ALB/GLOB Ratio 1.2 RATIO (0.9-2.4); AST(SGOT) 12 U/L (15-37); Alanine Aminotransfer ALT/SGPT 23 U/L (16-61); Albumin, Serum 3.7 g/dL (3.2-5.0); Alkaline Phosphatase 50 U/L (45-117); Anion Gap 4 (5-15); BUN 20 mg/dL (7-18); BUN/Creat Ratio 20.3 RATIO (10-20); Chloride 107 mmol/L (98-107); Cholesterol 182 mg/dL (200); Creatinine, Serum 0.99 mg/dL (0.70-1.30); EST Glomerular Filtration Rate 85 mL/min (>60); Est Glom Filt Rate - Afr Amer 103 mL/min (>60); Ferritin 144 ng/mL (26-388); Globulin 3.1 g/dL (2.2-4.2); Glucose 92 mg/dL (74-106); High Density Lipoprotein 59 mg/dL; Iron 111 ug/dL (65-175); PSA,Total - Annual Screen 0.51 ng/mL (0.00-4.00); Potassium 3.8 mmol/L (3.5-5.1); Protein, Total 6.8 g/dL (6.4-8.2); Sodium Level 142 mmol/L (136-145); Triglycerides 130 mg/dL; Very Low Density Lipoprotein 26 mg/dL (5-40)
[2020-03-09 16:02] LABS: Vitamin B1, Thiamine 215.9 nmol/L (66.5-200.0)
== END ==
PROVIDERS: PCP Family Medicine; Referring Provider Family Medicine; Visit Provider Family Medicine
DX: Z00.00 Encounter for general adult medical examination without abnormal findings (principal); Z12.5 Encounter for screening for malignant neoplasm of prostate; I10 Essential (primary) hypertension; Z98.890 Other specified postprocedural states
CPT/HCPCS: 36415; 80053; 80061; 82607; 82728; 82746; 83540; 84153; 84425; 85025; G0103

== ENCOUNTER → 2020-03-24 09:55 | Outpatient (CLI) | payer OTHER, SELFPAY ==
--- NOTE | 2020-03-24 09:59 | MRI_ITS ---
STUDY: MRI RIGHT KNEE REASON FOR EXAM: Male, 49 years old. Knee pain. Swelling. TECHNIQUE: Standardized fat and water weighted pulse sequences were obtained in all 3 orthogonal planes. COMPARISON: 05/09/2016. FINDINGS: Patellofemoral articulation chondromalacia. Lateral compartment articular cartilage preserved. Medial compartment grade 4 cartilage loss. No acute fracture. No acute dislocation. No acute bone destruction. Mild reactive bone marrow edema at the proximal tibia. Osteophytes. Lateral meniscus intact. Medial meniscal degeneration with truncated appearance and tear of the posterior root ligament (sagittal images 15 through 18 series 4 and coronal image 12 series 6). Medial meniscal extrusion. Small volume joint effusion. No popliteal cyst. Mild soft tissue swelling. Varicose veins. Intact medial collateral ligamentous complex (MCL) with bowing. Normal distal semimembranosus, gracilis and semitendinosus tendons. Normal proximal tibiofibular articulation. Normal lateral collateral (fibular) ligament. Normal popliteus tendon. Normal biceps femoris tendon. Normal anterior cruciate ligament (ACL). Normal posterior cruciate ligament (PCL). Normal medial and lateral patellar retinaculum. Normal quadriceps tendon. Normal patellar tendon. Normal Hoffa''s fat pad. MRI/Lower Ext Joint Only (Routine) IMPRESSION: Medial meniscal tear with extrusion Medial compartment severe cartilage loss Patellofemoral chondromalacia Small volume joint effusion and mild soft tissue swelling Electronically Signed: Mayco Gallardo DO at 12:48 EST Tel , Service support ,
== END ==
PROVIDERS: PCP Family Medicine; Referring Provider Family Medicine; Visit Provider Family Medicine
DX: M25.561 Pain in right knee (principal); M25.461 Effusion, right knee
CPT/HCPCS: 73721

== ENCOUNTER → 2020-04-25 15:50 | Outpatient (CLI) | payer OTHER, SELFPAY ==
--- NOTE | 2020-04-25 15:55 | RAD_ITS ---
STUDY: X-RAY - RIGHT KNEE REASON FOR EXAM: Male, 50 years old. right knee pain, recent meniscus tear TECHNIQUE: 4 view(s) of the knee. COMPARISON: 06/06/2016. FINDINGS: Normal visualized distal femur. Normal visualized proximal tibia and fibula. Normal proximal tibiofibular articulation. There is no demonstrated fracture. There is shift of the tibia laterally and there is varus angulation of the tibia. There is severe degenerative arthrosis of the medial femorotibial compartment with severe joint space narrowing. Normal lateral femorotibial compartment. There is mild degenerative arthrosis of the patellofemoral articulation. There is no demonstrated joint effusion. The soft tissue structures are unremarkable. RAD/Knee 4 or More Views IMPRESSION: No acute fracture or dislocation. Severe medial osteoarthritis. Electronically Signed: Luc Wheeler MD at 0:02 EST , Service support ,
== END ==
LOC: MTLAB 15:51 → MTRAD 15:52
PROVIDERS: PCP Family Medicine; Referring Provider Orthopaedic Surgery; Visit Provider Orthopaedic Surgery
DX: M25.561 Pain in right knee (principal)
CPT/HCPCS: 73564

== ENCOUNTER → 2020-05-05 18:14 | Outpatient (CLI) | payer OTHER, SELFPAY | PROVIDERS: PCP Family Medicine; Referring Provider Physician Assistant Surgical; Visit Provider Physician Assistant Surgical | DX: R68.89 Other general symptoms and signs (principal) | CPT/HCPCS: 87635; U0005; U0003 ==

== ENCOUNTER → 2020-06-15 16:46 | Outpatient (CLI) | payer OTHER, SELFPAY ==
[2020-06-15 17:38] LABS: Amphetamine Urine VISTA NEGATIVE (<1000 ng/mL); Barbiturate Urine VISTA NEGATIVE (< 200 ng/mL); Benzodiazepine Urine VISTA NEGATIVE (< 200 ng/mL); Cocaine Urine VISTA NEGATIVE (< 300 ng/mL); Ecstacy Urine VISTA NEGATIVE (< 500 ng/mL); Methadone Urine VISTA NEGATIVE (< 300 ng/mL); PCP Urine VISTA NEGATIVE (< 25 ng/mL); THC Urine VISTA NEGATIVE (< 50 ng/mL); Vista UDS pH Range 6
== END ==
PROVIDERS: PCP Family Medicine; Referring Provider Anesthesiology Pain Medicine; Visit Provider Anesthesiology Pain Medicine
DX: F11.20 Opioid dependence, uncomplicated (principal)
CPT/HCPCS: 80307

== ENCOUNTER → 2020-07-21 09:22 | Outpatient (CLI) | payer OTHER, SELFPAY ==
[2020-07-25 12:07] LABS: Testosterone, Free 11.58 ng/dL (5.00-21.00)
[2020-07-26 12:24] LABS: Testosterone, % Free 1.96 % (1.50-4.20); Testosterone, Total 591 ng/dL (264-916)
== END ==
PROVIDERS: PCP Family Medicine; Referring Provider Family Medicine; Visit Provider Family Medicine
DX: N52.9 Male erectile dysfunction, unspecified (principal); R53.83 Other fatigue
CPT/HCPCS: 36415; 84402; 84403

== ENCOUNTER 2020-09-20 15:00 | Outpatient (RCR) | payer OTHER, SELFPAY ==
[2020-08-04 09:16] VITALS: BMI 36.3
--- NOTE | 2020-09-11 14:47 | HP.OTEVAL_ITS ---
Patient's Visit Information MIRIAM BURTON is a 50 year old M, referred to Occupational Therapy by Dr. Mayra Webb MD, with a diagnosis of left RF middle phalanx fx. Date of Evaluation: 09/11/20 Occupational Therapist: Otilia Mcqueen, WESTON/Jordin, CHT - Subjective This 50 year old male was seen for OT eval with dx of a left RF middle phalanx fx. pt states DOI August 03, 2020- pt states he was unloading a tire that bounced back and hit his finger- [facility] and was rec[facility]d to [facility]. pt was erum taped for a few weeks and is now released to perform all activities without restrictions. pt would like to know what to do to increase his ROM. - ROM MP: left RF 0/80 right 0/90 PIP: left RF 0/105 right 0/105 DIP: left RF 0/55 right 0/85 - Strength Brass Bobbin Winder: right 105# left 95# Lateral Pinch: right 20# left 20# Tripod Pinch: right 16# left 12# - Sensation Sensation Comments: denies - Quick DASH-Disab of Arm,Shoulder& Hand Quick DASH Score: 6.6650 - Goals Goal:: pt will demo the ability to form a composite fist to increase ind. with grasping objects ind. by d/c. pt will demo left RF DIP flex at 80* or greater by dc - Rehabilitation General Assessment: pt demo with a decrease in left RF DIP flex limiting his ind. with forming a tight composite fist. pt would benefit from 2-3 visits to ed. pt in AROM, AAROM and PROM exercises to assist pt in gaining full ROM- (today therapist completed PROM and by end of session pt demo with active DIP flex at 80*a increase from 55*. pt demo understanding of POC and agree. Rehabilitation Potential: Excellent - Anticipated Interventions A/AAROM/PROM, Strengthening, Modalities, Joint Protection/Energy Conservation, Education re Diagnosis - Visit Plan Frequency: 1-2x /Week Duration: 3 Weeks General Plan: pt demo a gain of DIP ROM from 55* to 80* TEXT: Thank you for the opportunity to evaluate your patient. For Medicare and Medicare HMO plans, please review the plan of care and approve it. It will need to be FAXED BACK to us at [phone] for Medicare purposes. Please let me know if there are questions or concerns regarding this plan of care. Physician Signature: _Date:
--- NOTE | 2020-09-22 12:16 | HP.OTDCSUM ---
It has been my pleasure to treat MIRIAM BURTON under orders from Dr. Mayra Webb MD, for the diagnosis of left RF middle phalanx fx for a total of 2 visit(s). Please see the following information for a summary of their discharge status. % Improvement: 90 Objective/Function: ROM of LRF. MP 82 was 80. PIP 103 was 90. DIP 77 was 55. Banding Machine Operator strength 100 was 95#. Lat Pinch 22 was 20#. Tri Pinch 15 was 12# Patient Goals: Regain Mobility Goal:: pt will demo the ability to form a composite fist to increase ind. with grasping objects ind. by d/c. pt will demo left RF DIP flex at 80* or greater by dc Plan: discharge Discharge Comments: pt was seen for two OT visits with dx of mallet finger- pt is demo ROM and strength WNL. no skilled therapy warranted at this time. pt has met goals in OT and is d/c If there are questions or concerns regarding this patient's occupational therapy, please fell free to call me at [phone]. Thank you for the referral of this patient. Sincerely, Otilia Mcqueen, OTR/L, CHT
== END 2020-09-20 19:00 | disposition home or self-care (01) ==
LOC: OT 15:00
PROVIDERS: PCP Family Medicine; Referring Provider Orthopaedic Surgery Hand Surgery; Visit Provider Orthopaedic Surgery Hand Surgery
DX: S62.629D Displaced fracture of middle phalanx of unspecified finger, subsequent encounter for fracture with routine healing (principal)
CPT/HCPCS: 97110; 97166; 97530

== ENCOUNTER 2021-03-07 09:30 | Outpatient (RCR) | payer OTHER, SELFPAY ==
--- NOTE | 2021-02-19 08:52 | HP.PTEVAL_ITS ---
Patient's Visit Information MIRIAM BURTON is a 50 year old M referred to Physical Therapy by MOUSTAPHA Ng with a diagnosis of R knee OA. Date of Evaluation: 02/13/21 Physical Therapist: Denzel Reyes DPT - Visit Plan Frequency: 2x /Week Duration: 4 Weeks Plan: Start with strengthening, joint mobs into both flexion and extension. Add in hip extension mobs as well. Progress as tolerated. - Subjective Miriam presents to physical therapy with right knee pain. Pt reports he has bone on bone arthritis in R knee, he recently received gel injections. He notes increased pain when descending stairs, squatting or any activities that utilizes the knee. Sitting for prolonged periods of times causes stiffness to increase, therefore increasing pain levels. 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 He reports increased pain throughout the day, okay in Ams. He is hopeful to reduce symptoms and increase mobility to stave off a knee replacement. - Pain R knee Pain Intensity (Out of 10): 2 Pain Intensity Range: 0, 4, Unrated - Objective POSTURE: Decreased extension in RLE during stance. PALPATION: R posterior knee swelling, normal else where. NEURO: normal sensation throughout BLEs. ROM: AROM: R Knee 0-10-105deg, PROM: 0-5-106deg. MMT: RLE: Knee: flexion 4/5, ext: 5/5; hip- 4-/5 flexion, abd 4/5, ext 4/5, LLE: hip- flexion 4/5, ext 3+/5; hip; flexion 4+/5, ext 4/5, abd 4/5. GAIT: Antalgic gait with lateral translation of RLE during stance phase. Right trunk shift during stance on RLE. - Balance/Special Test Scores Lower Extremity Functional Score: 30 - Goals Goal 1:: Pt will increase R knee ROM to 125 degrees flexion. Goal Time Frame: 2-4 Weeks Goal 2:: Pt will increase knee flexion strength bilaterally to 4+/5 to improve body mechanics while transferring from sit to stand. Goal Time Frame: 2-4 Weeks Goal 3:: Pt will score < 55% disability on LEFS to better perform daily activities. Goal Time Frame: 2-4 Weeks Goal 4:: Pt will ascend and descend stairs reciprocally with 2/10 pain. Goal Time Frame: 2-4 Weeks Goal 5:: Pt will perform squat with proper body mechanics with 2/10 pain to allow completion of job requirements. - Rehabilitation Potential Physical Therapy Diagnosis: Pt. has signs and symptoms consistent with R knee OA with subsequent hypomobility, weakness and pain. Pt. would benefit from PT to address above limitations progressing back to all functional activities without limitations. Rehabilitation Potential: Good - Anticipated Interventions Patient/Client Instruction: Educate patient on: Condition, Plan of Care, Risk Factors, Benefits of Fitness Program For the Purpose of:: To decrease pain, To increase ROM, To increase tolerance to activity/condition/position, To improve gait and locomotor functions, To increase flexibility/ROM, To improve health and function Therapeutic Exercise to Include: Strength training, Flexibilty training, Passive ROM, Active ROM For the Purpose of:: To decrease pain, To decrease swelling/inflammation, To increase ROM, To improve nutrient delivery to tissue, To improve muscle performance and motor function, To increase tolerance to activity/condition/position, To improve ability of physical actions for home/community/work/leisure, To improve gait and locomotor functions, To improve health of tissue, To increase flexibility/ROM, To improve health and function Manual Therapy Techniques to Include: Mobilization, Passive ROM For the Purpose of:: To decrease pain, To decrease swelling/inflammation, To increase ROM, To improve nutrient delivery to tissue, To increase flexibility/ROM Thank you for the opportunity to evaluate your patient. For Medicare and Medicare HMO plans, please review the plan of care and approve it. It will need to be FAXED BACK to us at [phone] for Medicare purposes. For Medicare only, by signing this I certify the plan of care. Please let me know if there are questions or concerns regarding this plan of care. Physician Signature: Date:
--- NOTE | 2021-04-09 15:07 | HP.PTDCNRP_ITS ---
MIRIAM BURTON was seen in my office for initial evaluation on 02/13/21. The following Plan of Care was established for this patient: Initial Frequency: 2x /Week Initial Duration: 4 Weeks Patient/Client Instruction: Educate patient on: Condition, Plan of Care, Risk Factors, Benefits of Fitness Program For the Purpose of:: To decrease pain, To increase ROM, To increase tolerance to activity/condition/position, To improve gait and locomotor functions, To increase flexibility/ROM, To improve health and function Therapeutic Exercise to Include: Strength training, Flexibilty training, Passive ROM, Active ROM For the Purpose of:: To decrease pain, To decrease swelling/inflammation, To increase ROM, To improve nutrient delivery to tissue, To improve muscle performance and motor function, To increase tolerance to activity/cond ition/position, To improve ability of physical actions for home/community/work/leisure, To improve gait and locomotor functions, To improve health of tissue, To increase flexibility/ROM, To improve health and function Manual Therapy Techniques to Include: Mobilization, Passive ROM For the Purpose of:: To decrease pain, To decrease swelling/inflammation, To increase ROM, To improve nutrient delivery to tissue, To increase flexibility/ROM This patient was last seen in our office 03/07/21. Pertinent comments regarding their Physical therapy will appear below: Pt. was seen in PT for his knee pain. Pt. was making some small improvements in PT. He did not attend his last PT session and has not been seen in ~1 month. Pt. will be DC from PT at this point in time. At this point I will be discontinuing this patient from physical therapy. I would be happy to see this patient again in the future if found appropriate by the physician. Thank you! Denzel Reyes, DPT Balance/Gait/Functional tests - Balance/Special Test Scores Lower Extremity Functional Score: 38
== END 2021-03-07 19:00 | disposition home or self-care (01) ==
LOC: PT 09:30
PROVIDERS: PCP Family Medicine; Referring Provider Physician Assistant; Visit Provider Physician Assistant
DX: M17.11 Unilateral primary osteoarthritis, right knee (principal)
CPT/HCPCS: 97110; 97161

== ENCOUNTER → 2021-04-10 11:40 | Outpatient (CLI) | payer OTHER, SELFPAY ==
[2021-04-10 12:07] LABS: Absolute Lymphocyte Count 1.53 X10^3/uL (0.83-4.51); Absolute Neutrophil Count 4.4 X10^3/uL (2.0-7.7); Basophil# 0.05 X10^3/uL; Basophil% 0.7 % (0-1); Hematocrit 48.1 % (40-54); Hemoglobin 16.4 g/dL (13.0-16.5); Lymphocyte # 1.53 X10^3/ul (0.83-4.51); Lymphocyte % 22.7 % (19-41); Mean Corp Hgb Conc 34.1 g/dL (32-36); Mean Corpuscular Volume 93.8 fL (80-94); Mean Platelet Vol. 10.2 fl (6.2-12.0); Monocyte# 0.55 X10^3/uL; Monocyte% 8.2 % (0-10); NRBC Flagged by Analyzer 0 % (0-5); Neutrophil # 4.38 X10^3/uL (2.7-7.7); Neutrophil % 65.1 % (47-70); Platelet Count 188 K/mm3 (150-450); RBC Distribution Width CV 13.9 % (11.6-14.6); RBC Distribution Width SD 47.8 fl (35.1-43.9); Red Blood Count 5.13 M/mm3 (4.6-6.2); White Blood Count 6.7 K/mm3 (4.4-11.0)
[2021-04-10 12:41] LABS: Vitamin B12 > 2000 pg/mL (211-911)
[2021-04-10 12:45] LABS: ALB/GLOB Ratio 1.2 RATIO (0.9-2.4); AST(SGOT) 10 U/L (15-37); Alanine Aminotransfer ALT/SGPT 23 U/L (16-61); Albumin, Serum 3.5 g/dL (3.2-5.0); Alkaline Phosphatase 46 U/L (45-117); Anion Gap 1 (5-15); BUN 16 mg/dL (7-18); BUN/Creat Ratio 15.8 RATIO (10-20); Calcium,Total 9.1 mg/dL (8.5-10.1); Chloride 109 mmol/L (98-107); Cholesterol 187 mg/dL (200); Creatinine, Serum 1.01 mg/dL (0.70-1.30); EST Glomerular Filtration Rate 82 mL/min (>60); Est Glom Filt Rate - Afr Amer 99 mL/min (>60); Ferritin 171 ng/mL (26-388); Globulin 2.9 g/dL (2.2-4.2); Glucose 87 mg/dL (74-106); High Density Lipoprotein 60 mg/dL; Iron 98 ug/dL (65-175); Magnesium 2.1 mg/dL (1.6-2.6); PSA,Total - Annual Screen 0.66 ng/mL (0.00-4.00); Potassium 4.3 mmol/L (3.5-5.1); Protein, Total 6.4 g/dL (6.4-8.2); Sodium Level 143 mmol/L (136-145); Triglycerides 111 mg/dL; Very Low Density Lipoprotein 22 mg/dL (5-40)
[2021-04-13 17:27] LABS: Vitamin B1, Thiamine 210.4 nmol/L (66.5-200.0)
== END ==
PROVIDERS: PCP Family Medicine; Referring Provider Family Medicine; Visit Provider Family Medicine
DX: Z00.00 Encounter for general adult medical examination without abnormal findings (principal); R25.2 Cramp and spasm; Z12.5 Encounter for screening for malignant neoplasm of prostate; Z98.890 Other specified postprocedural states
CPT/HCPCS: 36415; 80053; 80061; 82607; 82728; 83540; 83735; 84153; 84425; 85025; G0103

== ENCOUNTER → 2021-04-18 10:05 | Outpatient (CLI) | payer OTHER, SELFPAY ==
--- NOTE | 2021-04-18 10:07 | VDLE_ITS ---
RIGHT CFV is compressible, spontaneous, phasic, competent and demonstrates normal augmentation. FV is compressible, spontaneous, phasic, competent and demonstrates normal augmentation. POP V is compressible, spontaneous, phasic, competent and demonstrates normal augmentation. T/P Trunk is compressible. PTV is compressible. RT PerV is compressible. GSV is compressible from SFJ to Prox inner thigh area. GSV is dilated and partially compressible from prox inner thigh to knee. From knee to ankle the GSV is non-compressible. Non-compressible, dilated varicosities are noted in the pop fossa area. SSV is compressible. Procedure This is a venous duplex using B-mode, color flow and spectral Doppler. Exam performed in department. The exam was diagnostic. VL/Venous Duplex US, Unilateral Interpretation Summary There is no evidence of right lower extremity deep vein thrombosis. Superficial thrombophlebitis right great saphenous vein proximal inner thigh to the knee with more extensive disease from the knee to the ankle. Superficial thrombophlebitis dilated varicosities popliteal fossa. Small saphenous vein is patent and compressible Ordering Physician: Robi Blount Referring Physician: Renzo Beatty Performed By: Meka Santiago, ADRIEN, RVT
== END ==
PROVIDERS: PCP Family Medicine; Referring Provider Physician Assistant; Visit Provider Physician Assistant
DX: M79.604 Pain in right leg (principal); I80.01 Phlebitis and thrombophlebitis of superficial vessels of right lower extremity
CPT/HCPCS: 93971

== ENCOUNTER 2021-05-16 14:08 | Outpatient (CLI) | payer OTHER, SELFPAY ==
[2021-05-16 16:00] LABS: Amphetamine Urine VISTA NEGATIVE (<1000 ng/mL); Barbiturate Urine VISTA NEGATIVE (< 200 ng/mL); Benzodiazepine Urine VISTA NEGATIVE (< 200 ng/mL); Cocaine Urine VISTA NEGATIVE (< 300 ng/mL); Ecstacy Urine VISTA NEGATIVE (< 500 ng/mL); Methadone Urine VISTA NEGATIVE (< 300 ng/mL); PCP Urine VISTA NEGATIVE (< 25 ng/mL); THC Urine VISTA NEGATIVE (< 50 ng/mL); Vista UDS pH Range 5
== END 2021-05-16 23:59 | disposition short-term general hospital (02) ==
PROVIDERS: PCP Family Medicine; Visit Provider Anesthesiology Pain Medicine
DX: F11.20 Opioid dependence, uncomplicated (principal)
CPT/HCPCS: 80307

== ENCOUNTER 2021-05-25 05:26 | Day surgery (SDC) | payer OTHER, SELFPAY ==
[2021-05-25 06:05] VITALS: BP 137/79; PULSE 60; RESP 16; TEMP 36.5; O2SAT 98; BMI 34.6
--- NOTE | 2021-05-25 06:19 | PCM.HP.STD ---
HPI - General HPI Narrative MIRIAM BURTON, is a 51 M who presents for screening colonoscopy today. He has never had a previous exam. Does have remote history of rectal fissures. 6 weeks ago he had a superficial venous thrombosis but he was treated with anticoagulation for 21 days. He has had a remote history of DVT. He has not had COVID-19. He has not been vaccinated and is not interested at this time. He has not had any abdominal pain. No weight loss. No bright red blood per rectum or melena. He does note that he has had some increased symptomatic hemorrhoids. There is been no rectal bleeding. His previous abdominal surgery was a umbilical/ventral hernia repair [facility] Medical History (Updated 05/25/21 @ 06:[address] Star Vanegas MD) Alcohol use Arthritis Back pain Back pain CPAP (continuous positive airway pressure) dependence Diabetes Disorder of uvula DVT (deep venous thrombosis) Gastric reflux Hay fever Hemorrhoids History of echocardiogram History of steroid therapy History of stress test HTN (hypertension) Hypertension Kidney stones Knee pain Lab test negative for COVID-19 virus Leg cramps Shoulder pain Sleep apnea URI (upper respiratory infection) Varicose veins of right lower extremity Wears glasses Home Medications calcium citrate 315 mg-vitamin D3 5 mcg (200 unit) tablet 2 tab PO QHS 04/25/20 [History Last Taken Unknown] multivitamin 2 cap PO DAILY 04/25/20 [History Last Taken Unknown] amlodipine 5 mg tablet 5 mg PO DAILY 08/04/20 [History Last Taken 05/25/21 05:00] mecobalamin (vitamin B12) 1,000 mcg disintegrating tablet,sublingual 1,500 mcg SL DAILY 08/04/20 [History Last Taken Unknown] metoprolol succinate 25 mg tablet,extended release 24 hr 25 mg PO DAILY 08/04/20 [History Last Taken 05/25/21 05:00] dextrin 3 gram/4 gram oral powder 3 g PO DAILY g 01/29/21 [History Last Taken Unknown] pantoprazole 20 mg tablet,delayed release 40 mg PO DAILY tab 01/29/21 [History Last Taken Unknown] tramadol 50 mg tablet 50 mg PO BID 03/15/21 [History Last Taken Unknown] celecoxib [Celebrex] 200 mg PO DAILY 05/23/21 [History Last Taken Unknown] fexofenadine [Inez] 180 mg PO DAILY PRN 05/23/21 [History Last Taken Unknown] morinda citrifolia fruit 1,000 mg PO DAILY 05/23/21 [History Last Taken Unknown] omega 6-oow-cvw-fish oil [Fish Oil] 2 cap PO DAILY 05/23/21 [History Last Taken Unknown] Allergy/AdvReac Type Severity Reaction Status Date / Time olmesartan medoxomil Allergy Itching Verified 05/25/21 06:00 [From Rona] Family History Other Breast cancer Surgical History (Updated 05/23/21 @ 10:47 by Alena Arevalo) Deviated septum H/O foot surgery H/O hernia repair H/O knee surgery H/O shoulder surgery History of surgical removal of ganglion cyst History of tonsillectomy hx of gastric sleeve Social History Smoking Status: Never smoker alcohol intake: current alcohol intake frequency: a few times a month Alcohol type: hard liquor ROS Constitutional Constitutional: Reports systems reviewed and no addt'l complaints, except as documented Cardiovascular Cardiovascular: Denies chest pain Respiratory/Chest Respiratory/Chest: Denies shortness of breath at rest Gastrointestinal Gastrointestinal: Denies abdominal pain, change in bowel habits, hematochezia or melena Vital Signs Vital Signs Vital Signs: 05/25/21 06:05 05/25/21 06:08 Temperature 97.7 F L Temperature Source Temporal Pulse Rate 60 Respiratory Rate 16 Respiratory Pattern Normal Blood Pressure 137/79 H Blood Pressure Mean 98 Blood Pressure Source Monitor Blood Pressure Position Semi-Fowlers Blood Pressure Location Right Arm Pulse Ox 98 Oxygen Delivery Method Room Air Weight Weight: 241 lb 2.971 oz Body Mass Index (BMI) 34.6 Physical Exam Const alert, oriented x3 and no apparent distress General Appearance: cooperative and comfortable Eyes General Eye: normal appearance of both eyes Neck General: normal visual inspection Chest inspection of chest normal Resp Effort and Inspection: able to speak in complete sentences and symmetric chest movement Auscultation: clear to auscultation bilaterally Cardio regular rate and regular rhythm GI soft to palpation, non-tender and non-distended Extremity no calf tenderness Neuro oriented x3 Psych thought process normal Results Lab / Micro Data Micro: Microbiology 05/24/21 08:31 Interface Orders SARS-CoV-2 Antigen (Rapid) - Final Assessment & Plan Assessment/Plan (1) Screening for intestinal cancer: PLAN: The patient presents via open access today. I recommend to him a screening colonoscopy with possible biopsy or polypectomy as indicated. He is aware of the technique, benefit, risk, alternatives. He has had an opportunity to ask and have questions answered. We will proceed as noted. Star Vanegas M.D., F.A.C.S.
[2021-05-25] MEDS: Lactated Ringers 1,000 ML 15 ML IV (06:30)
[2021-05-25 06:53] VITALS: BP 137/79; BP 137/89; PULSE 59; RESP 18; TEMP 37; O2SAT 99
--- NOTE | 2021-05-25 06:56 | OP.COLON_ITS ---
Patient Name: Oziel Uribe Procedure Date: 05/25/2021 6:28 AM Date of : 1970 Age: 51 Procedure: Colonoscopy Indications: Screening for colorectal malignant neoplasm Providers: Star Vanegas MD Referring MD: Star Vanegas MD Medicines: See the Anesthesia note for documentation of the administered medications Patient Profile: Last Colonoscopy: none. The patient's first colonoscopy is today. Complications: No immediate complications. Procedure: Pre-Anesthesia Assessment: - Prior to the procedure, a History and Physical was performed, and patient medications and allergies were reviewed. The patient's tolerance of previous anesthesia was also reviewed. The risks and benefits of the procedure and the sedation options and risks were discussed with the patient. All questions were answered, and informed consent was obtained. Prior Anticoagulants: The patient has taken no previous anticoagulant or antiplatelet agents. ASA Grade Assessment: II - A patient with mild systemic disease. After reviewing the risks and benefits, the patient was deemed in satisfactory condition to undergo the procedure. After I obtained informed consent, the scope was passed under direct vision. Throughout the procedure, the patient's blood pressure, pulse, and oxygen saturations were monitored continuously. The adult colonoscope was introduced through the anus and advanced to the cecum, identified by appendiceal orifice and ileocecal valve. The colonoscopy was performed without difficulty. The patient tolerated the procedure well. The quality of the bowel preparation was adequate to identify polyps. The ileocecal valve was photographed. Scope In: 6:38:47 AM Scope Withdrawal Time 0 hours 6 minutes 10 seconds Scope Out: 6:49:11 AM Total Procedure Duration Time 0 hours 10 minutes 24 seconds Findings: The digital rectal exam findings include thrombosed external hemorrhoids and internal hemorrhoids that prolapse with straining, but require manual replacement into the anal canal (Grade III). Pertinent negatives include normal prostate (size, shape, and consistency). The colon (entire examined portion) appeared normal. Impression: - Thrombosed external hemorrhoid and internal hemorrhoids that prolapse with straining, but require manual replacement into the anal canal (Grade III) found on digital rectal exam. Left lateral thrombosed hemorrhoid - The entire examined colon is normal. - No specimens collected. Recommendation: - Discharge patient to home. - Resume previous diet. - Continue present medications. - Repeat colonoscopy in 10 years for screening purposes. Procedure Code(s): --- Professional --- 56906, Colonoscopy, flexible; diagnostic, including collection of specimen(s) by brushing or washing, when performed (separate procedure) Diagnosis Code(s): --- Professional --- Z12.11, Encounter for screening for malignant neoplasm of colon K64.2, Third degree hemorrhoids K64.5, Perianal venous thrombosis CPT copyright 2017 [employer]. All rights reserved. The codes documented in this report are preliminary and upon maintenance pipefitter review may be revised to meet current compliance requirements. Star Vanegas MD 05/25/2021 6:55:21 AM This report has been signed electronically. Number of Addenda: 0 Note Initiated On: 05/25/2021 6:28 AM
--- NOTE | 2021-05-25 06:57 | OP.CCLET_ITS ---
05/25/2021 Renzo Beatty [address] [place] [address] Re : Colonoscopy procedure for Oziel Uribe Dear Dr. Beatty This procedure was performed on Tuesday, May 25, 2021. My impressions and recommendations are as follows: Impressions : - Thrombosed external hemorrhoid and internal hemorrhoids that prolapse with straining, but require manual replacement into the anal canal (Grade III) found on digital rectal exam. Left lateral thrombosed hemorrhoid - The entire examined colon is normal. - No specimens collected. Recommendations : - Discharge patient to home. - Resume previous diet. - Continue present medications. - Repeat colonoscopy in 10 years for screening purposes. My findings are described in the full procedure note, which is enclosed. If I can be of further assistance, please feel free to contact me at Doctor phone number(s): Work: . Sincerely, Star Vanegas MD 05/25/2021 6:55:21 AM This report has been signed electronically.
[2021-05-25 06:58] VITALS: BP 137/79; BP 137/85; PULSE 52; RESP 16; O2SAT 100
[2021-05-25 07:03] VITALS: BP 137/79; BP 143/85; PULSE 48; RESP 16; O2SAT 100
[2021-05-25 07:05] VITALS: BP 130/83; BP 137/79; PULSE 55; RESP 16; O2SAT 100
[2021-05-25 07:20] VITALS: BP 137/79
== END 2021-05-25 23:59 | disposition home or self-care (01) ==
LOC: EN 05:27 → AC 05:27
PROVIDERS: PCP Family Medicine; Referring Provider Surgery; Visit Provider Surgery
PROC: 0DJD8ZZ Inspection of Lower Intestinal Tract, Via Natural or Artificial Opening Endoscopic (ICD-10-PCS; CPT 45378; principal; 2021-05-25 06:25)
DX: Z12.11 Encounter for screening for malignant neoplasm of colon (principal); E11.9 Type 2 diabetes mellitus without complications; K64.2 Third degree hemorrhoids; K64.5 Perianal venous thrombosis; I10 Essential (primary) hypertension; K21.9 Gastro-esophageal reflux disease without esophagitis; M19.90 Unspecified osteoarthritis, unspecified site; G47.30 Sleep apnea, unspecified; Z87.442 Personal history of urinary calculi; Z86.718 Personal history of other venous thrombosis and embolism; Z79.899 Other long term (current) drug therapy
CPT/HCPCS: 45378; 87426; C9803; J7120

== ENCOUNTER 2022-01-22 11:00 | Outpatient (RCR) | payer OTHER, SELFPAY ==
[2022-01-08 13:12] VITALS: BP 123/87; PULSE 59; RESP 16; TEMP 36.1; BMI 36.1
--- NOTE | 2022-01-08 14:21 | HP.PCM_ITS ---
History of Present Illness Date of Service: 01/08/22 Chief Complaint: Traumatic right leg wound History of Wound: This is a 51-year-old male who presents with a traumatic wound to the right pretibial surface. The wound occurred on December 23, 2021. While working on a deck, a wooden board impacted his right pretibial surface, creating a wound. Several days later, the patient was evaluated at the [facility], and was placed on a prescription for Keflex, which the patient is currently taking. In addition, he is using antibiotic ointment topically. The patient's traumatic wound has failed to heal, prompting him to seek medical attention at the [facility]. The patient has multiple pre-existing medical problems, which are listed below. He was formerly morbidly obese, weighing 360 pounds. Currently weighs about 245 pounds. Weight loss was precipitated by the performance of a gastric sleeve surgical procedure. He has 2 prior episodes of acute deep vein thrombosis in the right lower extremity, which occurred postoperatively following surgical procedures. Patient does relate swelling in his right lower extremity, which typically occurs near the end of the day. He sleeps on a flat mattress at night. 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 [facility] Medical History (Updated 01/08/22 @ 14:[address] Edson Noguera MD) Alcohol use Arthritis Arthritis Back pain Back pain Chronic wound of extremity CPAP (continuous positive airway pressure) dependence CPAP (continuous positive airway pressure) dependence Degenerative disc disease Diabetes Disorder of uvula DVT (deep venous thrombosis) Gastric reflux GERD (gastroesophageal reflux disease) Hay fever Hemorrhoids History of deep vein thrombosis History of diabetes mellitus History of echocardiogram History of hemorrhoids History of steroid therapy History of stress test HTN (hypertension) Hypertension Hypertension Kidney stones Knee pain Lab test negative for COVID-19 virus Leg cramps Obesity (BMI 35.0-39.9 without comorbidity) Obstructive sleep apnea Scoliosis Shoulder pain Sleep apnea Traumatic open wound of right lower leg URI (upper respiratory infection) 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 Wears glasses Wound of right leg Home Medications calcium citrate 315 mg-vitamin D3 5 mcg (200 unit) tablet (Calcium Citrate + D) 2 tab PO QHS 04/25/20 [History Last Taken Unknown] multivitamin 2 cap PO DAILY 12/29/20 [History Last Taken Unknown] amlodipine 5 mg tablet 5 mg PO DAILY 08/04/20 [History Last Taken 05/25/21 05:00] mecobalamin (vitamin B12) 1,000 mcg disintegrating tablet,sublingual 1,500 mcg sublingual DAILY 08/04/20 [History Last Taken Unknown] metoprolol succinate 25 mg tablet,extended release 24 hr 25 mg PO DAILY 08/04/20 [History Last Taken 05/25/21 05:00] dextrin 3 gram/4 gram oral powder (Clear Fiber) 3 - 4 tsp PO DAILY 01/29/21 [History Last Taken Unknown] pantoprazole 20 mg tablet,delayed release (Protonix) 40 mg PO DAILY 01/29/21 [History Last Taken Unknown] tramadol 50 mg tablet 50 mg PO BID 03/15/21 [History Last Taken Unknown] celecoxib 200 mg capsule (Celebrex) 200 mg PO DAILY 05/23/21 [History Last Taken Unknown] cephalexin 500 mg capsule 500 mg PO Q12H 10 days #20 caps 01/01/22 [Rx Last Taken Unknown] cholecalciferol (vitamin D3) 10 mcg (400 unit) capsule (Vitamin D3) mcg PO DAILY 01/08/22 [History Last Taken Unknown] fexofenadine 180 mg tablet 180 mg PO DAILY 01/08/22 [History Last Taken Unknown] magnesium 1 tab PO QHS 01/08/22 [History Last Taken Unknown] omega 4-etw-zjx-fish oil 1,200 mg (144 mg-216 mg) capsule (Fish Oil) 1 cap PO DAILY 01/08/22 [History Last Taken Unknown] Allergy/AdvReac Type Severity Reaction Status Date / Time olmesartan medoxomil Allergy Itching Verified 01/08/22 13:22 [From [facility]] Family History Other Breast cancer Surgical History Deviated septum H/O foot surgery H/O hernia repair H/O knee surgery H/O shoulder surgery History of arthroscopic knee surgery History of gastric restrictive surgery History of shoulder surgery History of surgical removal of ganglion cyst History of tonsillectomy History of tonsillectomy History of umbilical hernia repair hx of gastric sleeve Social History Smoking Status: Never smoker alcohol intake: current alcohol intake frequency: a few times a month Alcohol type: hard liquor Vital Signs Vital Signs Vital Signs: 01/08/22 13:12 Temperature 97 F L Temperature Source Temporal Pulse Rate 59 L Respiratory Rate 16 Blood Pressure 123/87 H Blood Pressure Mean 99 Blood Pressure Source Monitor Blood Pressure Position Sitting Blood Pressure Location Right Arm Oxygen Delivery Method Room Air Weight Weight: 245 lb Body Mass Index (BMI) 36.1 Physical Exam Const alert, oriented x3, no apparent distress and well nourished Constitutional Narrative: The patient is obese. General Appearance: cooperative, comfortable, well kempt and well developed Orientation / Consciousness: awake, oriented to person, oriented to place and oriented to time Exam Limitations: no limitations HEENT normocephalic, head/scalp atraumatic and hearing grossly normal bilaterally Head and Scalp: normal to inspection, normocephalic and atraumatic External Ear: external ears normal Eyes PERRL and EOMs intact bilaterally General Eye: normal appearance of both eyes Resp normal respiratory effort, normal air movement, no retractions and no use of accessory muscles Effort and Inspection: able to speak in complete sentences Extremity no calf tenderness General Extremity: Negative for clubbing or cyanosis Skin Wound Narrative: A wound is noted on the right pretibial surface. There is a moderate amount of bioburden. Slight periwound erythema is noted. Dimensions are documented elsewhere. There is a small amount of pink, active granulation tissue. Neuro oriented x3, CN's II-XII intact bilaterally and moves all extremities Sensorium / Orientation: awake, alert, oriented to person, oriented to place and oriented to time Psych Appearance: grossly normal and appropriate Attitude: calm Activity / Motor Behavior: appropriate eye contact Speech: normal speech Mood & Affect: euthymic mood Thought Process: normal thought process Thought Content: normal thought content Attention / Concentration: attention grossly intact Debridement Note Debridement Note Wound debrided: Right pretibial wound Laterality: Right Type of Debridement: Excisional debridement Anesthesia Used: 5% Lidocaine Gel Depth: Down to and including healthy tissue and in the subcutaneous layer Percentage of wound debrided: 100 Instrument Used: 7mm curette Tissue Removed: Bioburden and nonviable tissue Severity: Fat Layer Exposed Amount of bleeding with debridement: Mild Bleeding Controlled with: Compression and gauze Patient tolerated procedure: Patient tolerated procedure well Post-Debridement Measurements and Additional Note: Post-Debridement Measurements/Treatment - Nurse 1 - General Ulcer Assessment Start: 01/08/22 13:00 Freq: Status: Active Protocol: EVELIN Activity Type Activity Date Activity User E-sign Co-sign Detail Recorded Client Recorded Date Recorded By Document 01/08/22 13:12 [facility] [id number] 01/08/22 13:21 [facility] 01/08/22 13:12 - Today's Visit Information Type of service Initial Visit Arrival Mode Ambulatory Transfer Assistance None Patient Identification Verified (Name & Yes ) Patient Requires Transmission-Based No Precautions Height and Weight Height 5 ft 9 in Weight 245 lb Weight in Pounds 245.0 lbs Weight Measurement Method Stated by Patient Body Mass Index (BMI) 36.1 BMI Classification Obese BSA - Yulia 2.25 Vital Signs Temperature (97.8 F-99.1 F) 97 F L Temperature Source Temporal Pulse Rate (60-100) 59 L Pulse Location Monitor Respiratory Rate (12-18) 16 Respiratory rate source Observation Oxygen Delivery Method Room Air Blood Pressure (90/60-120/80) 123/87 H Blood Pressure Mean 99 Source Monitor Position Sitting Blood Pressure Location Right Arm History Since Last Visit- (Skip if this is Patient's initial visit) Left Footwear Regular Shoe Right Footwear Regular Shoe Pain Scale: 0-10 Numeric Is Patient Pain Free? Yes Lower Extremity Assessment/ Foot Assessment/ Toe Nail Assessment Left -Posterior Tibial Doppler Multiphasic -Dorsalis Pedis Doppler Monophasic -Extremity Color Pale -Hair Growth on Legs Yes -Hair Growth on Toes Yes -Capillary Refill Less than 3 Seconds -Other Deformity No -Prior Foot Ulcer No -Charcot Joint No -Prior Amputation No -Thick No -Discolored No -Deformed No -Improper Length & Hygeine No Right -Posterior Tibial Doppler Multiphasic -Dorsalis Pedis Doppler Multiphasic -Extremity Color Pale -Hair Growth on Legs Yes -Hair Growth on Toes Yes -Temperature of Extremity Cool -Capillary Refill Less than 3 Seconds -Other Deformity No -Prior Foot Ulcer No -Charcot Joint No -Prior Amputation No -Thick No -Discolored No -Deformed No -Improper Length & Hygeine No Neuropathy Assessment Feet - Top Side and Bottom <Entered> (a) Communication Assessment Preferred language Bol[place]ian Client Services Account Manager Required No Able to Read Yes Able to Write Yes Communication Tools None Right Hearing Abillity Normal Left Hearing Abillity Normal Visual Assistive Devices Glasses Teaching Assessment Preferences Verbal,Written, Audio/Visual, Demonstration Barriers to Learning None Readiness To Learn Excellent Willingness to Engage in Self Management High Activies Readiness to Engage in Self Management High Activities Anxiety Level Calm Cooperation Cooperative Perception Coherent Interest in Health Problem Asks Questions Education Importance Acknowledges Need Does Patient Smoke tobacco or other No substances Smoking Status Never smoker Is Patient Diabetic No Functional Assessment Recent Decline in Ability to Perform Denies Any Declines 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 Cultural/Sabianist Needs that may affect No Treatment Plan Teaching: Wound Center *Welcome to the Wound Center -Person Taught Patient -Teaching Method Discussion -Response to teaching Verbalize understanding Welcome to the Wound Care Center Bolivian (a) 1 - + WC - Nurse 1 - General Ulcer Measurement Start: 01/08/22 13:00 Freq: Status: Active Protocol: Activity Type Activity Date Activity User E-sign Co-sign Detail Recorded Client Recorded Date Recorded By Document 01/08/22 13:12 [facility] [id number] 01/08/22 13:21 [facility] 01/08/22 13:12 Wound Center Nurse 1 #1- R MARTINES (TRAUMA) -Combined with other wound No -Current Size (cm) - Length 1.4 -Current Size (cm) - Width 1.4 -Current Size (cm) - Depth 0.2 -Total Square Cm 1.96 -Date of Last Picture (Recall this 01/08/22 field) -Photo Taken Yes -Epithelialization None Present -Tunneling No -Undermining/Tunneling No -Circular Undermining No -Exudate Amt Medium -Exudate Type Serosanguineous -Wound Margin Distinct, Outline Attached -Granulation Amt Large (67-100%) -Granulation Quality Red -Slough/Fibrin Yes -Necrosis Amt Small (1-33%) -Necrotic Tissue Type Adherent Slough -Texture (Malou-wound Skin Appearance) Assessed, Scarring -Moisture (Malou-wound Skin Appearance) Assessed -Color (Malou-wound Skin Appearance) Assessed -Temperature (Malou-wound Skin No Abnormality Appearance) (Pt Warm) -Tenderness on Palpation (Malou-wound No Skin Appearance) -Ulcer Cleansing Rinsed/ Irrigated with Saline -Foul Odor after Cleansing No -Anesthetic Used 5% Lidocaine Gel Lower Limb Edema Present Yes Right Calf (cm) 40.5 Right Ankle (cm) 25.5 Left Calf (cm) 41.5 Left Ankle (cm) 25.2 - Nurse 2 - General Ulcer CM Notes Start: 01/08/22 13:00 Freq: Status: Active Protocol: Activity Type Activity Date Activity User E-sign Co-sign Detail Recorded Client Recorded Date Recorded By Document 01/08/22 13:35 [facility] [id number] 01/08/22 13:57 [facility] 01/08/22 13:35 Wound Center Nurse 2 #1- R MARTINES (TRAUMA) -Time 13:35 -Correct Patient Yes -Correct Side, Site, Position Yes -Correct Procedure Yes -Procedure Performed Yes -Type of Procedure Debridement -Clinical Debridement Subcutaneous -Tissue Removed Subcutaneous -Post Debridement (cm) - Length 1.3 -Post Debridement (cm) - Width 1.3 -Post Debridement (cm) - Depth 0.2 -Total Square (Post) (cm) 1.69 -Area of Debridement (cm) - Length 1.3 -Area of Debridement (cm) - Width 1.3 -Total Square (Area) (cm) 1.69 -Tunneling No -Undermining/Tunneling No -Circular Undermining No -Wound/Ulcer Outcome Not Healed -Ulcer Cleansing Rinsed/ Irrigated with Saline -Foul Odor after Cleansing No -Bioengineered Tissue No -Bleeding Controlled with Pressure -Treatment Response Procedure Tolerated Well -Offloading No -Debridement - Subq, 1st 20sq cm Yes Pain Scale: 0-10 Numeric Is Patient Pain Free? Yes - Nurse 3 - General Ulcer D/C NN Start: 01/08/22 13:00 Freq: Status: Active Protocol: Activity Type Activity Date Activity User E-sign Co-sign Detail Recorded Client Recorded Date Recorded By Document 01/08/22 13:57 MW [id number] 01/08/22 13:59 [facility] 01/08/22 13:57 Wound Care Nurse 3 #1- R MARTINES (TRAUMA) -Ulcer Cleansing Rinsed/ Irrigated with Saline -Foul Odor after Cleansing No -Negative Pressure Wound Therapy N/A -Primary Dressing Applied Promogran -Primary Dressing Covered/Secured with Dry Gauze, Secured with Tape -Promogran 2 Right -Lotion applied to leg before No compression wrap -Tubular Bandage Double Layer -Size of Tubigrip Used Size E -Size E ($) 2 Treatment Response Procedure Tolerated Well Pain Scale: 0-10 Numeric Is Patient Pain Free? Yes Teaching: Wound Center Dressing Your Wound -Person Taught Patient -Teaching Method Discussion -Response to teaching Verbalize understanding WC - Visit Discharge Discharge Condition Stable Ambulatory Status Ambulatory Transportation Private Auto Accompanied by self Medication Reconcilliation completed & No provided to patient/care provider Clinical Summary of Care Provided Yes Assessment/Plan Assessment/Plan (1) Wound of right leg: CODE(S): S81.801A - Unspecified open wound, right lower leg, initial encounter (2) Traumatic open wound of right lower leg: CODE(S): S81.801A - Unspecified open wound, right lower leg, initial encounter QUALIFIERS: Encounter type: initial encounter Qualified Code(s): S81.801A - Unspecified open wound, right lower leg, initial encounter (3) Chronic wound of extremity: (4) Obesity (BMI 35.0-39.9 without comorbidity): CODE(S): E66.9 - Obesity, unspecified (5) Arthritis: CODE(S): M19.90 - Unspecified osteoarthritis, unspecified site (6) Obstructive sleep apnea: CODE(S): G47.33 - Obstructive sleep apnea (adult) (pediatric) (7) CPAP (continuous positive airway pressure) dependence: CODE(S): Z99.89 - Dependence on other enabling machines and devices (8) History of diabetes mellitus: CODE(S): Z86.39 - Personal history of other endocrine, nutritional and metabolic disease (9) History of deep vein thrombosis: CODE(S): Z86.718 - Personal history of other venous thrombosis and embolism (10) GERD (gastroesophageal reflux disease): CODE(S): K21.9 - Gastro-esophageal reflux disease without esophagitis (11) Hypertension: CODE(S): I10 - Essential (primary) hypertension (12) History of hemorrhoids: CODE(S): Z87.19 - Personal history of other diseases of the digestive system (13) Varicose veins with inflammation: CODE(S): I83.10 - Varicose veins of unspecified lower extremity with inflammation (14) Degenerative disc disease: (15) Scoliosis: CODE(S): M41.9 - Scoliosis, unspecified (16) History of umbilical hernia repair: CODE(S): Z98.890 - Other specified postprocedural states; Z87.19 - Personal history of other diseases of the digestive system (17) History of arthroscopic knee surgery: CODE(S): Z98.890 - Other specified postprocedural states (18) History of shoulder surgery: CODE(S): Z98.890 - Other specified postprocedural states (19) History of gastric restrictive surgery: CODE(S): Z98.84 - Bariatric surgery status (20) History of tonsillectomy: CODE(S): Z90.89 - Acquired absence of other organs PLAN: Plan This is a 51-year-old male who presents with a traumatic open wound on his right pretibial surface. This occurred on December 23, approximately 2 weeks ago. He was evaluated in an outpatient urgent care center, and is currently near the end of an oral prescription for Keflex. He has been encouraged to complete the prescription. Swab cultures have been obtained today in the wound healing center, for both aerobic and anaerobic bacterial growth. This was elicited due to the presence of mild periwound erythema. Efforts are to be undertaken to minimize swelling in the right lower extremity. The patient has been advised to elevate his right lower extremity is much as possible. He is to continue sleeping on a flat mattress at night. Activity has been encouraged. We are to initiate compression to the right lower extremity by means of double Tubigrip's. Promogran is to be used topically on a daily basis. The patient has been instructed in the appropriate means of application. Optimizing nutrition has been recommended. Patient is relatively young, and experiences no limitations in his ambulatory capacity. Arterial disease of any degree of significance is not suspected. We will await the results of today's swab cultures. The patient is to return in 1 week for reassessment. Total time: 50 minutes
[2022-01-15 10:30] VITALS: BP 145/87; PULSE 65; RESP 20; TEMP 36.6; BMI 36.1
--- NOTE | 2022-01-15 15:16 | PCM.WC.HP ---
History of Present Illness Date of Service: 01/15/22 Chief Complaint: Traumatic right leg wound History of Wound: This is a 51-year-old male who presented with a traumatic wound to the right pretibial surface. The wound occurred on December 23, 2021. While working on a deck, a wooden board impacted his right pretibial surface, creating a wound. Several days later, the patient was evaluated at the [facility], and was placed on a prescription for Keflex, which the patient was taking at the time of his initial evaluation. In addition, he was using antibiotic ointment topically. The patient's traumatic wound failed to heal, prompting him to seek medical attention at the [facility]. The patient has multiple pre-existing medical problems, which are listed below. He was formerly morbidly obese, weighing 360 pounds. Currently weighs about 245 pounds. Weight loss was precipitated by the performance of a gastric sleeve surgical procedure. He has 2 prior episodes of acute deep vein thrombosis in the right lower extremity, which occurred postoperatively following surgical procedures. Patient does relate swelling in his right lower extremity, which typically occurs near the end of the day. He sleeps on a flat mattress at night. 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 [facility] Medical History Alcohol use Arthritis Arthritis Back pain Back pain Chronic wound of extremity CPAP (continuous positive airway pressure) dependence CPAP (continuous positive airway pressure) dependence Degenerative disc disease Diabetes Disorder of uvula DVT (deep venous thrombosis) Gastric reflux GERD (gastroesophageal reflux disease) Hay fever Hemorrhoids History of deep vein thrombosis History of diabetes mellitus History of echocardiogram History of hemorrhoids History of steroid therapy History of stress test HTN (hypertension) Hypertension Hypertension Kidney stones Knee pain Lab test negative for COVID-19 virus Leg cramps Obesity (BMI 35.0-39.9 without comorbidity) Obstructive sleep apnea 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 Scoliosis Shoulder pain Sleep apnea Traumatic open wound of right lower leg URI (upper respiratory infection) 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 Wears glasses Wound of right leg Home Medications calcium citrate 315 mg-vitamin D3 5 mcg (200 unit) tablet (Calcium Citrate + D) 2 tab PO QHS 04/25/20 [History Last Taken Unknown] multivitamin 2 cap PO DAILY 04/25/20 [History Last Taken Unknown] amlodipine 5 mg tablet 5 mg PO DAILY 08/04/20 [History Last Taken 05/25/21 05:00] mecobalamin (vitamin B12) 1,000 mcg disintegrating tablet,sublingual 1,500 mcg sublingual DAILY 08/04/20 [History Last Taken Unknown] metoprolol succinate 25 mg tablet,extended release 24 hr 25 mg PO DAILY 08/04/20 [History Last Taken 05/25/21 05:00] dextrin 3 gram/4 gram oral powder (Clear Fiber) 3 - 4 tsp PO DAILY 01/29/21 [History Last Taken Unknown] pantoprazole 20 mg tablet,delayed release (Protonix) 40 mg PO DAILY 01/29/21 [History Last Taken Unknown] tramadol 50 mg tablet 50 mg PO BID 03/15/21 [History Last Taken Unknown] celecoxib 200 mg capsule (Celebrex) 200 mg PO DAILY 05/23/21 [History Last Taken Unknown] cholecalciferol (vitamin D3) 10 mcg (400 unit) capsule (Vitamin D3) mcg PO DAILY 01/08/22 [History Last Taken Unknown] fexofenadine 180 mg tablet 180 mg PO DAILY 01/08/22 [History Last Taken Unknown] magnesium 1 tab PO QHS 01/08/22 [History Last Taken Unknown] omega 4-cag-hvf-fish oil 1,200 mg (144 mg-216 mg) capsule (Fish Oil) 1 cap PO DAILY 01/08/22 [History Last Taken Unknown] Allergy/AdvReac Type Severity Reaction Status Date / Time olmesartan medoxomil Allergy Itching Verified 01/15/22 13:59 [From Rona] Family History Other Breast cancer Surgical History Deviated septum H/O foot surgery H/O hernia repair H/O knee surgery H/O shoulder surgery History of arthroscopic knee surgery History of gastric restrictive surgery History of shoulder surgery History of surgical removal of ganglion cyst History of tonsillectomy History of tonsillectomy History of umbilical hernia repair hx of gastric sleeve Social History Smoking Status: Never smoker alcohol intake: current alcohol intake frequency: a few times a month Alcohol type: hard liquor Vital Signs Vital Signs Vital Signs: 01/15/22 10:30 Temperature 97.9 F Temperature Source Temporal Pulse Rate 65 Respiratory Rate 20 H Blood Pressure 145/87 H Blood Pressure Mean 106 Blood Pressure Source Monitor Weight Weight: 245 lb Body Mass Index (BMI) 36.1 Physical Exam Const alert, oriented x3, no apparent distress and well nourished Constitutional Narrative: The patient is obese. General Appearance: cooperative, comfortable, well kempt and well developed Orientation / Consciousness: awake, oriented to person, oriented to place and oriented to time Exam Limitations: no limitations HEENT normocephalic, head/scalp atraumatic and hearing grossly normal bilaterally Head and Scalp: normal to inspection, normocephalic and atraumatic External Ear: external ears normal Eyes PERRL and EOMs intact bilaterally General Eye: normal appearance of both eyes Resp normal respiratory effort, normal air movement, no retractions and no use of accessory muscles Effort and Inspection: able to speak in complete sentences Extremity no calf tenderness General Extremity: Negative for clubbing or cyanosis Skin Wound Narrative: A wound is noted on the right pretibial surface. There is a moderate amount of bioburden. Slight periwound erythema is noted. Dimensions are documented elsewhere. There is a small amount of pink, active granulation tissue. Neuro oriented x3, CN's II-XII intact bilaterally and moves all extremities Sensorium / Orientation: awake, alert, oriented to person, oriented to place and oriented to time Psych Appearance: grossly normal and appropriate Attitude: calm Activity / Motor Behavior: appropriate eye contact Speech: normal speech Mood & Affect: euthymic mood Thought Process: normal thought process Thought Content: normal thought content Attention / Concentration: attention grossly intact Debridement Note Debridement Note Wound debrided: Right pretibial wound Laterality: Right Type of Debridement: Excisional debridement Anesthesia Used: 5% Lidocaine Gel Depth: Down to and including healthy tissue and in the subcutaneous layer Percentage of wound debrided: 100 Instrument Used: 5mm curette Tissue Removed: Bioburden Severity: Fat Layer Exposed Amount of bleeding with debridement: Mild Bleeding Controlled with: Compression and gauze Patient tolerated procedure: Patient tolerated procedure well Post-Debridement Measurements and Additional Note: Post-Debridement Measurements/Treatment WC - Nurse 1 - General Ulcer Assessment Start: 01/08/22 13:00 Freq: Status: Active Protocol: WC.LOWEXT Activity Type Activity Date Activity User E-sign Co-sign Detail Recorded Client Recorded Date Recorded By Document 01/08/22 13:12 [facility] [id number] 01/08/22 13:21 [facility] Document 01/15/22 10:30 DL [id number] 01/15/22 10:35 DL 01/08/22 01/15/22 13:12 10:30 WC - Today's Visit Information Type of service Initial Visit Follow-up Visit (Physician/EYEGLASS LENS GENERATOR ) Arrival Mode Ambulatory Ambulatory Transfer Assistance None None Patient Identification Verified (Name & Yes Yes ) Patient Requires Transmission-Based No No Precautions Height and Weight Height 5 ft 9 in Weight 245 lb Weight in Pounds 245.0 lbs Weight Measurement Method Stated by Patient Body Mass Index (BMI) 36.1 36.1 BMI Classification Obese Obese BSA - Yulia 2.25 Vital Signs Temperature (97.8 F-99.1 F) 97 F L 97.9 F Temperature Source Temporal Temporal Pulse Rate (60-100) 59 L 65 Pulse Location Monitor Monitor Respiratory Rate (12-18) 16 20 H Respiratory rate source Observation Observation Oxygen Delivery Method Room Air Blood Pressure (90/60-120/80) 123/87 H 145/87 H Blood Pressure Mean 99 106 Source Monitor Monitor Position Sitting Blood Pressure Location Right Arm History Since Last Visit- (Skip if this is Patient's initial visit) Have you changed medications since your No last visit? Any new allergies or adverse reactions No Had a fall/change in ADL's that may No increase risk of falls Signs or symptoms of abuse and/or No neglect since last visit Have you been in the hospital since your No last visit? Has dressing in place as prescribed Yes Has compression in place as prescribed No Has offloadiing in place as prescribed Yes Experienced any changes in pain level or No management Left Footwear Regular Shoe Right Footwear Regular Shoe Pain Scale: 0-10 Numeric Is Patient Pain Free? Yes Yes Lower Extremity Assessment/ Foot Assessment/ Toe Nail Assessment Left -Posterior Tibial Doppler Multiphasic -Dorsalis Pedis Doppler Monophasic -Extremity Color Pale -Hair Growth on Legs Yes -Hair Growth on Toes Yes -Capillary Refill Less than 3 Seconds -Other Deformity No -Prior Foot Ulcer No -Charcot Joint No -Prior Amputation No -Thick No -Discolored No -Deformed No -Improper Length & Hygeine No Right -Posterior Tibial Doppler Multiphasic -Dorsalis Pedis Doppler Multiphasic -Extremity Color Pale -Hair Growth on Legs Yes -Hair Growth on Toes Yes -Temperature of Extremity Cool -Capillary Refill Less than 3 Seconds -Other Deformity No -Prior Foot Ulcer No -Charcot Joint No -Prior Amputation No -Thick No -Discolored No -Deformed No -Improper Length & Hygeine No Neuropathy Assessment Feet - Top Side and Bottom <Entered> (a) Communication Assessment Preferred language Burmese Vault Teller Required No Able to Read Yes Able to Write Yes Communication Tools None Right Hearing Abillity Normal Left Hearing Abillity Normal Visual Assistive Devices Glasses Teaching Assessment Preferences Verbal,Written, Audio/Visual, Demonstration Barriers to Learning None Readiness To Learn Excellent Willingness to Engage in Self Management High Activies Readiness to Engage in Self Management High Activities Anxiety Level Calm Cooperation Cooperative Perception Coherent Interest in Health Problem Asks Questions Education Importance Acknowledges Need Does Patient Smoke tobacco or other No substances Smoking Status Never smoker Is Patient Diabetic No Functional Assessment Recent Decline in Ability to Perform Denies Any Declines Culture/Gnosticism/Aba Tutor Cultural/Gnosticism Needs that may affect No Treatment Plan Teaching: Wound Center *Welcome to the Wound Center -Person Taught Patient -Teaching Method Discussion -Response to teaching Verbalize understanding Welcome to the Wound Care Center Burmese (a) 1 - + WC - Nurse 1 - General Ulcer Measurement Start: 01/08/22 13:00 Freq: Status: Active Protocol: Activity Type Activity Date Activity User E-sign Co-sign Detail Recorded Client Recorded Date Recorded By Document 01/08/22 13:12 [facility] [id number] 01/08/22 13:21 BM Document 01/15/22 10:30 DL [id number] 01/15/22 10:35 DL 01/08/22 01/15/22 13:12 10:30 Wound Center Nurse 1 #1- R MARTINES (TRAUMA) -Combined with other wound No -Current Size (cm) - Length 1.4 1.1 -Current Size (cm) - Width 1.4 1 -Current Size (cm) - Depth 0.2 0.1 -Total Square Cm 1.96 1.1 -Date of Last Picture (Recall this 01/08/22 field) -Photo Taken Yes No -Epithelialization None Present -Tunneling No -Undermining/Tunneling No -Circular Undermining No -Exudate Amt Medium Small -Exudate Type Serosanguineous Serosanguineous -Wound Margin Distinct, Distinct, Outline Outline Attached Attached -Granulation Amt Large (67-100%) Medium (34-66%) -Granulation Quality Red Red -Slough/Fibrin Yes -Necrosis Amt Small (1-33%) Medium (34-66%) -Necrotic Tissue Type Adherent Slough Adherent Slough -Structure Exposed N/A -Texture (Malou-wound Skin Appearance) Assessed, Scarring Scarring -Moisture (Malou-wound Skin Appearance) Assessed No Abnormality -Color (Malou-wound Skin Appearance) Assessed No Abnormality -Temperature (Malou-wound Skin No Abnormality No Abnormality Appearance) (Pt Warm) (Pt Warm) -Tenderness on Palpation (Malou-wound No No Skin Appearance) -Ulcer Cleansing Rinsed/ Wound Cleanser Irrigated with Saline -Foul Odor after Cleansing No No -Anesthetic Used 5% Lidocaine 5% Lidocaine Gel Gel Lower Limb Edema Present Yes Right Calf (cm) 40.5 38.2 Right Ankle (cm) 25.5 23 Left Calf (cm) 41.5 Left Ankle (cm) 25.2 WC - Nurse 2 - General Ulcer CM Notes Start: 01/08/22 13:00 Freq: Status: Active Protocol: Activity Type Activity Date Activity User E-sign Co-sign Detail Recorded Client Recorded Date Recorded By Document 01/08/22 13:35 MW [id number] 01/08/22 13:57 MW Document 01/15/22 11:18 MW [id number] 01/15/22 11:22 MW 01/08/22 01/15/22 13:35 11:18 Wound Center Nurse 2 #1- R MARTINES (TRAUMA) -Time 13:35 11:18 -Correct Patient Yes Yes -Correct Side, Site, Position Yes Yes -Correct Procedure Yes Yes -Procedure Performed Yes Yes -Type of Procedure Debridement Debridement -Clinical Debridement Subcutaneous Subcutaneous -Tissue Removed Subcutaneous Subcutaneous -Post Debridement (cm) - Length 1.3 1.2 -Post Debridement (cm) - Width 1.3 1.4 -Post Debridement (cm) - Depth 0.2 0.2 -Total Square (Post) (cm) 1.69 1.68 -Area of Debridement (cm) - Length 1.3 1.2 -Area of Debridement (cm) - Width 1.3 1.4 -Total Square (Area) (cm) 1.69 1.68 -Tunneling No No -Undermining/Tunneling No No -Circular Undermining No No -Wound/Ulcer Outcome Not Healed Not Healed -Ulcer Cleansing Rinsed/ Rinsed/ Irrigated with Irrigated with Saline Saline -Foul Odor after Cleansing No No -Bioengineered Tissue No No -Bleeding Controlled with Pressure Pressure -Treatment Response Procedure Procedure Tolerated Well Tolerated Well -Offloading No No -Debridement - Subq, 1st 20sq cm Yes Yes Pain Scale: 0-10 Numeric Is Patient Pain Free? Yes Yes - Nurse 3 - General Ulcer D/C NN Start: 01/08/22 13:00 Freq: Status: Active Protocol: Activity Type Activity Date Activity User E-sign Co-sign Detail Recorded Client Recorded Date Recorded By Document 01/08/22 13:57 MW [id number] 01/08/22 13:59 MW Document 01/15/22 11:36 KR [id number] 01/15/22 11:36 KR 01/08/22 01/15/22 13:57 11:36 Wound Care Nurse 3 #1- R MARTINES (TRAUMA) -Ulcer Cleansing Rinsed/ Rinsed/ Irrigated with Irrigated with Saline Saline -Foul Odor after Cleansing No -Negative Pressure Wound Therapy N/A -Primary Dressing Applied Promogran NonAdherent Contact Layer, Promogran -Primary Dressing Covered/Secured with Dry Gauze, Dry Gauze, Secured with Secured with Tape Tape -Promogran 2 1 Right -Lotion applied to leg before No compression wrap -Tubular Bandage Double Layer -Size of Tubigrip Used Size E -Size E ($) 2 Treatment Response Procedure Tolerated Well Pain Scale: 0-10 Numeric Is Patient Pain Free? Yes Yes Teaching: Wound Center Dressing Your Wound -Person Taught Patient -Teaching Method Discussion -Response to teaching Verbalize understanding WC - Visit Discharge Discharge Condition Stable Stable Ambulatory Status Ambulatory Ambulatory Transportation Private Auto Private Auto Accompanied by self Medication Reconcilliation completed & No provided to patient/care provider Clinical Summary of Care Provided Yes Assessment/Plan Assessment/Plan (1) Wound of right leg: CODE(S): S81.801A - Unspecified open wound, right lower leg, initial encounter (2) Traumatic open wound of right lower leg: CODE(S): S81.801A - Unspecified open wound, right lower leg, initial encounter QUALIFIERS: Encounter type: initial encounter Qualified Code(s): S81.801A - Unspecified open wound, right lower leg, initial encounter (3) Chronic wound of extremity: (4) 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: CODE(S): I87.039 - 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 (5) Obesity (BMI 35.0-39.9 without comorbidity): CODE(S): E66.9 - Obesity, unspecified (6) Arthritis: CODE(S): M19.90 - Unspecified osteoarthritis, unspecified site (7) Obstructive sleep apnea: CODE(S): G47.33 - Obstructive sleep apnea (adult) (pediatric) (8) CPAP (continuous positive airway pressure) dependence: CODE(S): Z99.89 - Dependence on other enabling machines and devices (9) History of diabetes mellitus: CODE(S): Z86.39 - Personal history of other endocrine, nutritional and metabolic disease (10) History of deep vein thrombosis: CODE(S): Z86.718 - Personal history of other venous thrombosis and embolism (11) GERD (gastroesophageal reflux disease): CODE(S): K21.9 - Gastro-esophageal reflux disease without esophagitis (12) Hypertension: CODE(S): I10 - Essential (primary) hypertension (13) History of hemorrhoids: CODE(S): Z87.19 - Personal history of other diseases of the digestive system (14) Varicose veins with inflammation: CODE(S): I83.10 - Varicose veins of unspecified lower extremity with inflammation (15) Degenerative disc disease: (16) Scoliosis: CODE(S): M41.9 - Scoliosis, unspecified (17) History of umbilical hernia repair: CODE(S): Z98.890 - Other specified postprocedural states; Z87.19 - Personal history of other diseases of the digestive system (18) History of arthroscopic knee surgery: CODE(S): Z98.890 - Other specified postprocedural states (19) History of shoulder surgery: CODE(S): Z98.890 - Other specified postprocedural states (20) History of gastric restrictive surgery: CODE(S): Z98.84 - Bariatric surgery status (21) History of tonsillectomy: CODE(S): Z90.89 - Acquired absence of other organs PLAN: Plan This is a 51-year-old male who presented with a traumatic open wound on his right pretibial surface. This occurred on December 23, 2021. He was evaluated in an outpatient urgent care center, and oral Keflex was prescribed, which has been completed. Due to persisting periwound erythema, swab cultures were obtained at the patient's last visit, which were positive for Staphylococcus epidermidis. According to sensitivity results, the patient has been placed on doxycycline 100 mg p.o. twice daily for 8 days. Efforts are to be undertaken to minimize swelling in the right lower extremity. The patient has been advised to elevate his right lower extremity is much as possible. He is to continue sleeping on a flat mattress at night. Activity has been encouraged. We are to continue compression to the right lower extremity by means of double Tubigrip's. Promogran is to be continued topically on a daily basis, with Adaptic as well. The patient has been instructed in the appropriate means of application. Optimizing nutrition has been recommended. Patient is relatively young, and experiences no limitations in his ambulatory capacity. Arterial disease of any degree of significance is not suspected. The patient is to return in 1 week for reassessment. Total time: 28 minutes
[2022-01-22 11:04] VITALS: BP 147/85; PULSE 55; RESP 22; TEMP 36.3; BMI 36.1
--- NOTE | 2022-01-22 14:48 | HP.PCM_ITS ---
History of Present Illness Date of Service: 01/22/22 Chief Complaint: Traumatic right leg wound History of Wound: This is a 51-year-old male who presented with a traumatic wound to the right pretibial surface. The wound occurred on December 23, 2021. While working on a deck, a wooden board impacted his right pretibial surface, creating a wound. Several days later, the patient was evaluated at the [facility], and was placed on a prescription for Keflex, which the patient was taking at the time of his initial evaluation. In addition, he was using antibiotic ointment topically. The patient's traumatic wound failed to heal, prompting him to seek medical attention at the [facility]. The patient has multiple pre-existing medical problems, which are listed below. He was formerly morbidly obese, weighing 360 pounds. Currently weighs about 245 pounds. Weight loss was precipitated by the performance of a gastric sleeve surgical procedure. He has 2 prior episodes of acute deep vein thrombosis in the right lower extremity, which occurred post operatively following surgical procedures. Patient does relate swelling in his right lower extremity, which typically occurs near the end of the day. He sleeps on a flat mattress at night. 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 [facility] Medical History Alcohol use Arthritis Arthritis Back pain Back pain Chronic wound of extremity CPAP (continuous positive airway pressure) dependence CPAP (continuous positive airway pressure) dependence Degenerative disc disease Diabetes Disorder of uvula DVT (deep venous thrombosis) Gastric reflux GERD (gastroesophageal reflux disease) Hay fever Hemorrhoids History of deep vein thrombosis History of diabetes mellitus History of echocardiogram History of hemorrhoids History of steroid therapy History of stress test HTN (hypertension) Hypertension Hypertension Kidney stones Knee pain Lab test negative for COVID-19 virus Leg cramps Obesity (BMI 35.0-39.9 without comorbidity) Obstructive sleep apnea 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 Scoliosis Shoulder pain Sleep apnea Traumatic open wound of right lower leg URI (upper respiratory infection) 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 Wears glasses Wound of right leg Home Medications calcium citrate 315 mg-vitamin D3 5 mcg (200 unit) tablet (Calcium Citrate + D) 2 tab PO QHS 04/25/20 [History Last Taken Unknown] multivitamin 2 cap PO DAILY 04/25/20 [History Last Taken Unknown] amlodipine 5 mg tablet 5 mg PO DAILY 08/04/20 [History Last Taken 05/25/21 05:00] mecobalamin (vitamin B12) 1,000 mcg disintegrating tablet,sublingual 1,500 mcg sublingual DAILY 08/04/20 [History Last Taken Unknown] metoprolol succinate 25 mg tablet,extended release 24 hr 25 mg PO DAILY 08/04/20 [History Last Taken 05/25/21 05:00] dextrin 3 gram/4 gram oral powder (Clear Fiber) 3 - 4 tsp PO DAILY 01/29/21 [History Last Taken Unknown] pantoprazole 20 mg tablet,delayed release (Protonix) 40 mg PO DAILY 01/29/21 [History Last Taken Unknown] tramadol 50 mg tablet 50 mg PO BID 03/15/21 [History Last Taken Unknown] celecoxib 200 mg capsule (Celebrex) 200 mg PO DAILY 05/23/21 [History Last Taken Unknown] cholecalciferol (vitamin D3) 10 mcg (400 unit) capsule (Vitamin D3) mcg PO DAILY 01/08/22 [History Last Taken Unknown] fexofenadine 180 mg tablet 180 mg PO DAILY 01/08/22 [History Last Taken Unknown] magnesium 1 tab PO QHS 01/08/22 [History Last Taken Unknown] omega 4-lml-glm-fish oil 1,200 mg (144 mg-216 mg) capsule (Fish Oil) 1 cap PO DAILY 01/08/22 [History Last Taken Unknown] Allergy/AdvReac Type Severity Reaction Status Date / Time olmesartan medoxomil Allergy Itching Verified 01/22/22 09:37 [From Rona] Family History Other Breast cancer Surgical History Deviated septum H/O foot surgery H/O hernia repair H/O knee surgery H/O shoulder surgery History of arthroscopic knee surgery History of gastric restrictive surgery History of shoulder surgery History of surgical removal of ganglion cyst History of tonsillectomy History of tonsillectomy History of umbilical hernia repair hx of gastric sleeve Social History Smoking Status: Never smoker alcohol intake: current alcohol intake frequency: a few times a month Alcohol type: hard liquor Vital Signs Vital Signs Vital Signs: 01/22/22 11:04 Temperature 97.3 F L Temperature Source Temporal Pulse Rate 55 L Respiratory Rate 22 H Blood Pressure 147/85 H Blood Pressure Mean 105 Blood Pressure Source Monitor Weight Weight: 245 lb Body Mass Index (BMI) 36.1 Physical Exam Const alert, oriented x3, no apparent distress and well nourished Constitutional Narrative: The patient is obese. General Appearance: cooperative, comfortable, well kempt and well developed Orientation / Consciousness: awake, oriented to person, oriented to place and oriented to time Exam Limitations: no limitations HEENT normocephalic, head/scalp atraumatic and hearing grossly normal bilaterally Head and Scalp: normal to inspection, normocephalic and atraumatic External Ear: external ears normal Eyes PERRL and EOMs intact bilaterally General Eye: normal appearance of both eyes Resp normal respiratory effort, normal air movement, no retractions and no use of accessory muscles Effort and Inspection: able to speak in complete sentences Extremity no calf tenderness General Extremity: Negative for clubbing or cyanosis Skin Wound Narrative: A wound is noted on the right pretibial surface. There is a moderate amount of bioburden. Slight periwound erythema is noted though suspected to be inflammatory rather than infectious, and likely related to tape. Dimensions are documented elsewhere, and the wound appears to be smaller than noted previously. There is evidence of active granulation tissue. Neuro oriented x3, CN's II-XII intact bilaterally and moves all extremities Sensorium / Orientation: awake, alert, oriented to person, oriented to place and oriented to time Psych Appearance: grossly normal and appropriate Attitude: calm Activity / Motor Behavior: appropriate eye contact Speech: normal speech Mood & Affect: euthymic mood Thought Process: normal thought process Thought Content: normal thought content Attention / Concentration: attention grossly intact Debridement Note Debridement Note Wound debrided: Right pretibial area Laterality: Right Type of Debridement: Excisional debridement Anesthesia Used: 5% Lidocaine Gel Depth: Down to and including healthy tissue and in the subcutaneous layer Percentage of wound debrided: 100 Instrument Used: 5mm curette Tissue Removed: Bioburden Severity: Fat Layer Exposed Amount of bleeding with debridement: Mild Bleeding Controlled with: Compression and gauze Patient tolerated procedure: Patient tolerated procedure well Post-Debridement Measurements and Additional Note: Post-Debridement Measurements/Treatment WC - Nurse 1 - General Ulcer Assessment Start: 01/08/22 13:00 Freq: Status: Active Protocol: EVELIN Activity Type Activity Date Activity User E-sign Co-sign Detail Recorded Client Recorded Date Recorded By Document 01/08/22 13:12 BMF [id number] 01/08/22 13:21 BMF Document 01/15/22 10:30 DL [id number] 01/15/22 10:35 DL Document 01/22/22 11:04 DL [id number] 01/22/22 11:10 DL 01/08/22 01/15/22 01/22/22 13:12 10:30 11:04 WC - Today's Visit Information Type of service Initial Visit Follow-up Visit Follow-up Visit (Physician/DIRECTOR OF MANUFACTURING OPERATIONS (Physician/DIRECTOR OF MANUFACTURING OPERATIONS ) ) Arrival Mode Ambulatory Ambulatory Ambulatory Transfer Assistance None None None Patient Identification Verified (Name & Yes Yes Yes ) Patient Requires Transmission-Based No No No Precautions Height and Weight Height 5 ft 9 in Weight 245 lb Weight in Pounds 245.0 lbs Weight Measurement Method Stated by Patient Body Mass Index (BMI) 36.1 36.1 36.1 BMI Classification Obese Obese Obese BSA - Yulia 2.25 Vital Signs Temperature (97.8 F-99.1 F) 97 F L 97.9 F 97.3 F L Temperature Source Temporal Temporal Temporal Pulse Rate (60-100) 59 L 65 55 L Pulse Location Monitor Monitor Monitor Respiratory Rate (12-18) 16 20 H 22 H Respiratory rate source Observation Observation Observation Oxygen Delivery Method Room Air Blood Pressure (90/60-120/80) 123/87 H 145/87 H 147/85 H Blood Pressure Mean 99 106 105 Source Monitor Monitor Monitor Position Sitting Blood Pressure Location Right Arm History Since Last Visit- (Skip if this is Patient's initial visit) Have you changed medications since your No No last visit? Any new allergies or adverse reactions No No Had a fall/change in ADL's that may No No increase risk of falls Signs or symptoms of abuse and/or No No neglect since last visit Have you been in the hospital since your No No last visit? Has dressing in place as prescribed Yes No Has compression in place as prescribed No Yes Has offloadiing in place as prescribed Yes N/A Experienced any changes in pain level or No No management Left Footwear Regular Shoe Right Footwear Regular Shoe Pain Scale: 0-10 Numeric Is Patient Pain Free? Yes Yes Yes Lower Extremity Assessment/ Foot Assessment/ Toe Nail Assessment Left -Posterior Tibial Doppler Multiphasic -Dorsalis Pedis Doppler Monophasic -Extremity Color Pale -Hair Growth on Legs Yes -Hair Growth on Toes Yes -Capillary Refill Less than 3 Seconds -Other Deformity No -Prior Foot Ulcer No -Charcot Joint No -Prior Amputation No -Thick No -Discolored No -Deformed No -Improper Length & Hygeine No Right -Posterior Tibial Doppler Multiphasic -Dorsalis Pedis Doppler Multiphasic -Extremity Color Pale -Hair Growth on Legs Yes -Hair Growth on Toes Yes -Temperature of Extremity Cool -Capillary Refill Less than 3 Seconds -Other Deformity No -Prior Foot Ulcer No -Charcot Joint No -Prior Amputation No -Thick No -Discolored No -Deformed No -Improper Length & Hygeine No Neuropathy Assessment Feet - Top Side and Bottom <Entered> (a) Communication Assessment Preferred language Bengali 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 No Able to Read Yes Able to Write Yes Communication Tools None Right Hearing Abillity Normal Left Hearing Abillity Normal Visual Assistive Devices Glasses Teaching Assessment Preferences Verbal,Written, Audio/Visual, Demonstration Barriers to Learning None Readiness To Learn Excellent Willingness to Engage in Self Management High Activies Readiness to Engage in Self Management High Activities Anxiety Level Calm Cooperation Cooperative Perception Coherent Interest in Health Problem Asks Questions Education Importance Acknowledges Need Does Patient Smoke tobacco or other No substances Smoking Status Never smoker Is Patient Diabetic No Functional Assessment Recent Decline in Ability to Perform Denies Any Declines Culture/Christianity/Operations Business Partner Cultural/Christianity Needs that may affect No Treatment Plan Teaching: Wound Center *Welcome to the Wound Center -Person Taught Patient -Teaching Method Discussion -Response to teaching Verbalize understanding Welcome to the Wound Care Center Bengali (a) 1 - + WC - Nurse 1 - General Ulcer Measurement Start: 01/08/22 13:00 Freq: Status: Active Protocol: Activity Type Activity Date Activity User E-sign Co-sign Detail Recorded Client Recorded Date Recorded By Document 01/08/22 13:[address] [facility] [id number] 01/08/22 13:[address] [facility] Document 01/15/22 10:30 DL [id number] 01/15/22 10:35 DL Document 01/22/22 11:04 DL [id number] 01/22/22 11:10 DL 01/08/22 01/15/22 01/22/22 13:12 10:30 11:04 Wound Center Nurse 1 #1- R MARTINES (TRAUMA) -Combined with other wound No -Current Size (cm) - Length 1.4 1.1 0.9 -Current Size (cm) - Width 1.4 1 0.9 -Current Size (cm) - Depth 0.2 0.1 0.2 -Total Square Cm 1.96 1.1 0.81 -Date of Last Picture (Recall this 01/08/22 field) -Photo Taken Yes No No -Epithelialization None Present -Tunneling No -Undermining/Tunneling No -Circular Undermining No -Exudate Amt Medium Small Small -Exudate Type Serosanguineous Serosanguineous Serosanguineous -Wound Margin Distinct, Distinct, Distinct, Outline Outline Outline Attached Attached Attached -Granulation Amt Large (67-100%) Medium (34-66%) Medium (34-66%) -Granulation Quality Red Red [place] -Slough/Fibrin Yes -Necrosis Amt Small (1-33%) Medium (34-66%) Medium (34-66%) -Necrotic Tissue Type Adherent Slough Adherent Slough Adherent Slough -Structure Exposed N/A N/A -Texture (Malou-wound Skin Appearance) Assessed, Scarring Scarring Scarring -Moisture (Malou-wound Skin Appearance) Assessed No Abnormality No Abnormality -Color (Malou-wound Skin Appearance) Assessed No Abnormality No Abnormality -Temperature (Malou-wound Skin No Abnormality No Abnormality No Abnormality Appearance) (Pt Warm) (Pt Warm) (Pt Warm) -Tenderness on Palpation ([place]ou-wound No No No Skin Appearance) -Ulcer Cleansing Rinsed/ Wound Cleanser Rinsed/ Irrigated with Irrigated with Saline Saline -Foul Odor after Cleansing No No No -Anesthetic Used 5% Lidocaine 5% Lidocaine 5% Lidocaine Gel Gel Gel Lower Limb Edema Present Yes Right Calf (cm) 40.5 38.2 37.8 Right Ankle (cm) 25.5 23 22.5 Left Calf (cm) 41.5 Left Ankle (cm) 25.2 WC - Nurse 2 - General Ulcer CM Notes Start: 01/08/22 13:00 Freq: Status: Active Protocol: Activity Type Activity Date Activity User E-sign Co-sign Detail Recorded Client Recorded Date Recorded By Document 01/08/22 13:35 MW [id number] 01/08/22 13:57 MW Document 01/15/22 11:18 MW [id number] 01/15/22 11:22 MW Document 01/22/22 11:51 PL [id number] 01/22/22 11:52 PL 01/08/22 01/15/22 01/22/22 13:35 11:18 11:51 Wound Center Nurse 2 #1- R MARTINES (TRAUMA) -Time 13:35 11:18 11:18 -Correct Patient Yes Yes Yes -Correct Side, Site, Position Yes Yes Yes -Correct Procedure Yes Yes Yes -Procedure Performed Yes Yes Yes -Type of Procedure Debridement Debridement Debridement -Clinical Debridement Subcutaneous Subcutaneous Subcutaneous -Tissue Removed Subcutaneous Subcutaneous Subcutaneous -Post Debridement (cm) - Length 1.3 1.2 0.9 -Post Debridement (cm) - Width 1.3 1.4 0.9 -Post Debridement (cm) - Depth 0.2 0.2 0.1 -Total Square (Post) (cm) 1.69 1.68 0.81 -Area of Debridement (cm) - Length 1.3 1.2 0.9 -Area of Debridement (cm) - Width 1.3 1.4 0.9 -Total Square (Area) (cm) 1.69 1.68 0.81 -Tunneling No No No -Undermining/Tunneling No No No -Circular Undermining No No No -Wound/Ulcer Outcome Not Healed Not Healed Not Healed -Ulcer Cleansing Rinsed/ Rinsed/ Rinsed/ Irrigated with Irrigated with Irrigated with Saline Saline Saline -Foul Odor after Cleansing No No No -Bioengineered Tissue No No No -Bleeding Controlled with Pressure Pressure Pressure -Treatment Response Procedure Procedure Procedure Tolerated Well Tolerated Well Tolerated Well -Offloading No No -Debridement - Subq, 1st 20sq cm Yes Yes Yes Pain Scale: 0-10 Numeric Is Patient Pain Free? Yes Yes Yes VAMSI - Nurse 3 - General Ulcer D/C NN Start: 01/08/22 13:00 Freq: Status: Active Protocol: Activity Type Activity Date Activity User E-sign Co-sign Detail Recorded Client Recorded Date Recorded By Document 01/08/22 13:57 MW [id number] 01/08/22 13:59 MW Document 01/15/22 11:36 KR [id number] 01/15/22 11:36 KR Document 01/22/22 11:34 MW [id number] 01/22/22 11:35 MW 01/08/22 01/15/22 01/22/22 13:57 11:36 11:34 Wound Care Nurse 3 #1- R MARTINES (TRAUMA) -Ulcer Cleansing Rinsed/ Rinsed/ Rinsed/ Irrigated with Irrigated with Irrigated with Saline Saline Saline -Foul Odor after Cleansing No No -Negative Pressure Wound Therapy N/A N/A -Primary Dressing Applied Promogran NonAdherent Promogran Contact Layer, Promogran -Primary Dressing Covered/Secured with Dry Gauze, Dry Gauze, Dry Gauze, Secured with Secured with Secured with Tape Tape Tape -Promogran 2 1 1 Right -Lotion applied to leg before No No compression wrap -Tubular Bandage Double Layer Single Layer -Size of Tubigrip Used Size E Size D -Size D ($) 1 -Size E ($) 2 Treatment Response Procedure Tolerated Well Pain Scale: 0-10 Numeric Is Patient Pain Free? Yes Yes Yes Teaching: Wound Center Compression Wraps & Stockings -Person Taught Patient -Teaching Method Discussion, Demonstration -Response to teaching Verbalize understanding Dressing Your Wound -Person Taught Patient Patient -Teaching Method Discussion Discussion, Demonstration -Response to teaching Verbalize Verbalize understanding understanding WC - Visit Discharge Discharge Condition Stable Stable Stable Ambulatory Status Ambulatory Ambulatory Ambulatory Transportation Private Auto Private Auto Private Auto Accompanied by self SELF Medication Reconcilliation completed & No No provided to patient/care provider Clinical Summary of Care Provided Yes Yes Assessment/Plan Assessment/Plan (1) Wound of right leg: CODE(S): S81.801A - Unspecified open wound, right lower leg, initial encou nter QUALIFIERS: Encounter type: subsequent encounter Qualified Code(s): S81.801D - Unspecified open wound, right lower leg, subsequent encounter (2) Traumatic open wound of right lower leg: CODE(S): S81.801A - Unspecified open wound, right lower leg, initial encounter QUALIFIERS: Encounter type: subsequent encounter Qualified Code(s): S81.801D - Unspecified open wound, right lower leg, subsequent en counter (3) Chronic wound of extremity: (4) 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: CODE(S): I87.039 - 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 (5) Obesity (BMI 35.0-39.9 without comorbidity): CODE(S): E66.9 - Obesity, unspecified (6) Arthritis: CODE(S): M19.90 - Unspecified osteoarthritis, unspecified site (7) Obstructive sleep apnea: CODE(S): G47.33 - Obstructive sleep apnea (adult) (pediatric) (8) CPAP (continuous positive airway pressure) dependence: CODE(S): Z99.89 - Dependence on other enabling machines and devices (9) History of diabetes mellitus: CODE(S): Z86.39 - Personal history of other endocrine, nutritional and metabolic disease (10) History of deep vein thrombosis: CODE(S): Z86.718 - Personal history of other venous thrombosis and embolism (11) GERD (gastroesophageal reflux disease): CODE(S): K21.9 - Gastro-esophageal reflux disease without esophagitis (12) Hypertension: CODE(S): I10 - Essential (primary) hypertension (13) History of hemorrhoids: CODE(S): Z87.19 - Personal history of other diseases of the digestive system (14) Varicose veins with inflammation: CODE(S): I83.10 - Varicose veins of unspecified lower extremity with inflammation (15) Degenerative disc disease: (16) Scoliosis: CODE(S): M41.9 - Scoliosis, unspecified (17) History of umbilical hernia repair: CODE(S): Z98.890 - Other specified postprocedural states; Z87.19 - Personal history of other diseases of the digestive system (18) History of arthroscopic knee surgery: CODE(S): Z98.890 - Other specified postprocedural states (19) History of shoulder surgery: CODE(S): Z98.890 - Other specified postprocedural states (20) History of gastric restrictive surgery: CODE(S): Z98.84 - Bariatric surgery status (21) History of tonsillectomy: CODE(S): Z90.89 - Acquired absence of other organs PLAN: Plan This is a 51-year-old male who presented with a traumatic open wound on his right pretibial surface. This occurred on December 23, 2021. He was evaluated in an outpatient urgent care center, and oral Keflex was prescribed, which has been completed. Due to persisting periwound erythema, swab cultures were obtained at the patient's last visit, which were positive for Staphylococcus epidermidis. According to sensitivity results, the patient has been placed on doxycycline 100 mg p.o. twice daily for 8 days, which has now been completed. Efforts are to be continued to minimize swelling in the right lower extremity. The patient has been advised to elevate his right lower extremity is much as possible. He is to continue sleeping on a flat mattress at night. Activity has been encouraged. We are to continue compression to the right lower extremity by means of double Tubigrip's. Promogran is to be continued topically on a daily basis, with Adaptic as well. The patient has been instructed in the appropriate means of application. A small amount of periwound redness is noted, which may be a reaction to tape. We are to change the type of tape used to affix the dressing. Optimizing nutrition has been recommended. Patient is relatively young, and experiences no limitations in his ambulatory capacity. Arterial disease of any degree of significance is not suspected. The patient is to return in 1 week for reassessment. Total time: 29 minutes
== END 2022-01-25 23:59 | disposition home or self-care (01) ==
LOC: WC 11:00
PROVIDERS: PCP Family Medicine; Visit Provider Surgery
DX: S81.831A Puncture wound without foreign body, right lower leg, initial encounter (principal); E11.40 Type 2 diabetes mellitus with diabetic neuropathy, unspecified; G47.33 Obstructive sleep apnea (adult) (pediatric); M41.9 Scoliosis, unspecified; I83.10 Varicose veins of unspecified lower extremity with inflammation; E66.9 Obesity, unspecified; I10 Essential (primary) hypertension; R60.0 Localized edema; M19.90 Unspecified osteoarthritis, unspecified site; K21.9 Gastro-esophageal reflux disease without esophagitis; Z68.36 Body mass index [BMI] 36.0-36.9, adult; Z98.84 Bariatric surgery status; Z79.899 Other long term (current) drug therapy; Z86.718 Personal history of other venous thrombosis and embolism; W22.8XXA Striking against or struck by other objects, initial encounter
CPT/HCPCS: 11042; 87070; 87075; 87077; 87186; 87205; 99213; G0463

== ENCOUNTER → 2022-02-09 | Outpatient (CLI) | payer OTHER, SELFPAY ==
[2022-02-09 09:12] LABS: Absolute Lymphocyte Count 1.37 X10^3/uL (0.83-4.51); Absolute Neutrophil Count 3.1 X10^3/uL (2.0-7.7); Basophil# 0.02 X10^3/uL; Basophil% 0.4 % (0-1); Eosinophil# 0.09 X10^3/uL; Eosinophils% 1.8 % (0-5); Hematocrit 47.2 % (40-54); Hemoglobin 15.5 g/dL (13.0-16.5); Lymphocyte # 1.37 X10^3/ul (0.83-4.51); Lymphocyte % 26.9 % (19-41); Mean Corp Hgb Conc 32.8 g/dL (32-36); Mean Corpuscular Hgb 30.3 pg (27.0-32.0); Mean Corpuscular Volume 92.2 fL (80-94); Mean Platelet Vol. 10.7 fl (6.2-12.0); Monocyte# 0.53 X10^3/uL; Monocyte% 10.4 % (0-10); NRBC Flagged by Analyzer 0 % (0-5); Neutrophil # 3.06 X10^3/uL (2.7-7.7); Neutrophil % 60.1 % (47-70); Platelet Count 182 K/mm3 (150-450); RBC Distribution Width CV 12.9 % (11.6-14.6); RBC Distribution Width SD 43.6 fl (35.1-43.9); Red Blood Count 5.12 M/mm3 (4.6-6.2); White Blood Count 5.1 K/mm3 (4.4-11.0)
[2022-02-09 09:45] LABS: ALB/GLOB Ratio 1.1 RATIO (0.9-2.4); AST(SGOT) 18 U/L (15-37); Alanine Aminotransfer ALT/SGPT 21 U/L (16-61); Albumin, Serum 3.5 g/dL (3.2-5.0); Alkaline Phosphatase 47 U/L (45-117); Anion Gap 6 (5-15); BUN 22 mg/dL (7-18); BUN/Creat Ratio 20.2 RATIO (10-20); Calcium,Total 9.2 mg/dL (8.5-10.1); Chloride 108 mmol/L (98-107); Cholesterol 202 mg/dL (200); Creatinine, Serum 1.09 mg/dL (0.70-1.30); EST Glomerular Filtration Rate 75 mL/min (>60); Est Glom Filt Rate - Afr Amer 91 mL/min (>60); Globulin 3.3 g/dL (2.2-4.2); Glucose 82 mg/dL (74-106); High Density Lipoprotein 57 mg/dL; Potassium 3.9 mmol/L (3.5-5.1); Protein, Total 6.8 g/dL (6.4-8.2); Sodium Level 142 mmol/L (136-145); Thyroid Stim Hormone (TSH) 1.25 uIU/mL (0.358-3.74); Triglycerides 118 mg/dL; Very Low Density Lipoprotein 24 mg/dL (5-40)
[2022-02-11 08:50] LABS: Vitamin B12 > 2000 pg/mL (211-911); Vitamin D,25 Hydroxy 69.4 ng/mL
== END | disposition home or self-care (01) ==
LOC: LAB 08:13
PROVIDERS: PCP Family Medicine; Referring Provider Family Medicine; Visit Provider Family Medicine
DX: Z00.00 Encounter for general adult medical examination without abnormal findings (principal); Z12.5 Encounter for screening for malignant neoplasm of prostate; R53.83 Other fatigue
CPT/HCPCS: 36415; 80053; 80061; 82306; 82607; 84403; 84443; 85025

== ENCOUNTER 2022-02-19 08:00 | Outpatient (RCR) | payer OTHER, SELFPAY ==
[2022-01-26 01:45] VITALS: BP 147/85; PULSE 55; RESP 22; TEMP 36.3; BMI 36.1
[2022-01-29 10:55] VITALS: BP 156/87; PULSE 57; TEMP 35.7; BMI 36.1
--- NOTE | 2022-01-29 11:49 | PCM.WC.HP ---
History of Present Illness Date of Service: 01/29/22 Chief Complaint: Traumatic right leg wound History of Wound: This is a 51-year-old male who presented with a traumatic wound to the right pretibial surface. The wound occurred on December 23, 2021. While working on a deck, a wooden board impacted his right pretibial surface, creating a wound. Several days later, the patient was evaluated at the [facility], and was placed on a prescription for Keflex, which the patient was taking at the time of his initial evaluation. In addition, he was using antibiotic ointment topically. The patient's traumatic wound failed to heal, prompting him to seek medical attention at the [facility]. The patient has multiple pre-existing medical problems, which are listed below. He was formerly morbidly obese, weighing 360 pounds. Currently weighs about 245 pounds. Weight loss was precipitated by the performance of a gastric sleeve surgical procedure. He has 2 prior episodes of acute deep vein thrombosis in the right lower extremity, which occurred postoperatively following surgical procedures. Patient does relate swelling in his right lower extremity, which typically occurs near the end of the day. He sleeps on a flat mattress at night. 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 [facility] Medical History Alcohol use Arthritis Arthritis Back pain Back pain Chronic wound of extremity CPAP (continuous positive airway pressure) dependence CPAP (continuous positive airway pressure) dependence Degenerative disc disease Diabetes Disorder of uvula DVT (deep venous thrombosis) Gastric reflux GERD (gastroesophageal reflux disease) Hay fever Hemorrhoids History of deep vein thrombosis History of diabetes mellitus History of echocardiogram History of hemorrhoids History of steroid therapy History of stress test HTN (hypertension) Hypertension Hypertension Kidney stones Knee pain Lab test negative for COVID-19 virus Leg cramps Obesity (BMI 35.0-39.9 without comorbidity) Obstructive sleep apnea 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 Scoliosis Shoulder pain Sleep apnea Traumatic open wound of right lower leg URI (upper respiratory infection) 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 Wears glasses Wound of right leg Home Medications calcium citrate 315 mg-vitamin D3 5 mcg (200 unit) tablet (Calcium Citrate + D) 2 tab PO QHS 04/25/20 [History Last Taken Unknown] multivitamin 2 cap PO DAILY 04/25/20 [History Last Taken Unknown] amlodipine 5 mg tablet 5 mg PO DAILY 08/04/20 [History Last Taken 05/25/21 05:00] mecobalamin (vitamin B12) 1,000 mcg disintegrating tablet,sublingual 1,500 mcg sublingual DAILY 08/04/20 [History Last Taken Unknown] metoprolol succinate 25 mg tablet,extended release 24 hr 25 mg PO DAILY 08/04/20 [History Last Taken 05/25/21 05:00] dextrin 3 gram/4 gram oral powder (Clear Fiber) 3 - 4 tsp PO DAILY 01/29/21 [History Last Taken Unknown] pantoprazole 20 mg tablet,delayed release (Protonix) 40 mg PO DAILY 01/29/21 [History Last Taken Unknown] tramadol 50 mg tablet 50 mg PO BID 03/15/21 [History Last Taken Unknown] celecoxib 200 mg capsule (Celebrex) 200 mg PO DAILY 05/23/21 [History Last Taken Unknown] cholecalciferol (vitamin D3) 10 mcg (400 unit) capsule (Vitamin D3) mcg PO DAILY 01/08/22 [History Last Taken Unknown] fexofenadine 180 mg tablet 180 mg PO DAILY 01/08/22 [History Last Taken Unknown] magnesium 1 tab PO QHS 01/08/22 [History Last Taken Unknown] omega 1-kzk-grm-fish oil 1,200 mg (144 mg-216 mg) capsule (Fish Oil) 1 cap PO DAILY 01/08/22 [History Last Taken Unknown] Allergy/AdvReac Type Severity Reaction Status Date / Time olmesartan medoxomil Allergy Itching Verified 01/22/22 09:37 [From Rona] Family History Other Breast cancer Surgical History Deviated septum H/O foot surgery H/O hernia repair H/O knee surgery H/O shoulder surgery History of arthroscopic knee surgery History of gastric restrictive surgery History of shoulder surgery History of surgical removal of ganglion cyst History of tonsillectomy History of tonsillectomy History of umbilical hernia repair hx of gastric sleeve Social History Smoking Status: Never smoker alcohol intake: current alcohol intake frequency: a few times a month Alcohol type: hard liquor Vital Signs Vital Signs Vital Signs: 01/29/22 10:55 Temperature 96.2 F L Temperature Source Temporal Pulse Rate 57 L Blood Pressure 156/87 H Blood Pressure Mean 110 Blood Pressure Source Monitor Weight Weight: 245 lb Body Mass Index (BMI) 36.1 Physical Exam Const alert, oriented x3, no apparent distress and well nourished Constitutional Narrative: The patient is obese. General Appearance: cooperative, comfortable, well kempt and well developed Orientation / Consciousness: awake, oriented to person, oriented to place and oriented to time Exam Limitations: no limitations HEENT normocephalic, head/scalp atraumatic and hearing grossly normal bilaterally Head and Scalp: normal to inspection, normocephalic and atraumatic External Ear: external ears normal Eyes PERRL and EOMs intact bilaterally General Eye: normal appearance of both eyes Resp normal respiratory effort, normal air movement, no retractions and no use of accessory muscles Effort and Inspection: able to speak in complete sentences Extremity no calf tenderness General Extremity: Negative for clubbing or cyanosis Skin Wound Narrative: A wound is noted on the right pretibial surface. There is a small amount of bioburden. There is no sign of infection or cellulitis. Dimensions are documented elsewhere, and the wound appears to be smaller than noted previously. There is evidence of active granulation tissue. Neuro oriented x3, CN's II-XII intact bilaterally and moves all extremities Sensorium / Orientation: awake, alert, oriented to person, oriented to place and oriented to time Psych Appearance: grossly normal and appropriate Attitude: calm Activity / Motor Behavior: appropriate eye contact Speech: normal speech Mood & Affect: euthymic mood Thought Process: normal thought process Thought Content: normal thought content Attention / Concentration: attention grossly intact Debridement Note Debridement Note Wound debrided: Right pretibial surface Laterality: Right Type of Debridement: Excisional debridement Anesthesia Used: 5% Lidocaine Gel and Cetacaine Depth: Down to and including healthy tissue and in the subcutaneous layer Percentage of wound debrided: 100 Instrument Used: 5mm curette Tissue Removed: Bioburden Severity: Fat Layer Exposed Amount of bleeding with debridement: Mild Bleeding Controlled with: Compression and gauze Patient tolerated procedure: Patient tolerated procedure well Post-Debridement Measurements and Additional Note: Post-Debridement Measurements/Treatment WC - Nurse 1 - General Ulcer Assessment Start: 01/29/22 10:54 Freq: Status: Active Protocol: EVELIN Activity Type Activity Date Activity User E-sign Co-sign Detail Recorded Client Recorded Date Recorded By Document 01/29/22 10:55 TALAT [id number] 01/29/22 10:56 TALAT 01/29/22 10:55 - Today's Visit Information Type of service 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 Any new allergies or adverse reactions No Had a fall/change in ADL's that may No increase risk of falls Signs or symptoms of abuse and/or No neglect since last visit Have you been in the hospital since your No last visit? Has dressing in place as prescribed Yes Has compression in place as prescribed N/A Has offloadiing in place as prescribed N/A Experienced any changes in pain level or No management Left Footwear Regular Shoe Right Footwear Regular Shoe Pain Scale: 0-10 Numeric Is Patient Pain Free? Yes VAMSI - Nurse 1 - General Ulcer Measurement Start: 01/29/22 10:54 Freq: Status: Active Protocol: Activity Type Activity Date Activity User E-sign Co-sign Detail Recorded Client Recorded Date Recorded By Document 01/29/22 10:55 TALAT [id number] 01/29/22 10:56 TALAT 01/29/22 10:55 Wound Center Nurse 1 #1- R MARTINES (TRAUMA) -Combined with other wound No -Current Size (cm) - Length 0.5 -Current Size (cm) - Width 0.5 -Current Size (cm) - Depth 0.2 -Total Square Cm 0.25 -Photo Taken No -Tunneling No -Undermining/Tunneling No -Circular Undermining No -Change in Wound Grade/Stage No -Exudate Amt Small -Exudate Type Serosanguineous -Wound Margin Distinct, Outline Attached -Granulation Amt Medium (34-66%) -Granulation Quality [place] -Slough/Fibrin Yes -Necrosis Amt Medium (34-66%) -Necrotic Tissue Type Adherent Slough -Structure Exposed N/A -Texture (Malou-wound Skin Appearance) No Abnormality, Assessed -Moisture (Malou-wound Skin Appearance) No Abnormality, Assessed -Color (Malou-wound Skin Appearance) No Abnormality, Assessed -Temperature (Malou-wound Skin No Abnormality Appearance) (Pt Warm) -Tenderness on Palpation (Malou-wound No Skin Appearance) -Ulcer Cleansing Rinsed/ Irrigated with Saline -Foul Odor after Cleansing No -Anesthetic Used 5% Lidocaine Gel WC - Nurse 2 - General Ulcer CM Notes Start: 01/29/22 10:54 Freq: Status: Active Protocol: Activity Type Activity Date Activity User E-sign Co-sign Detail Recorded Client Recorded Date Recorded By Document 01/29/22 11:35 PL [id number] 01/29/22 11:36 PL 01/29/22 11:35 Wound Center Nurse 2 -Time 11:00 -Correct Patient Yes -Correct Side, Site, Position Yes -Correct Procedure Yes -Procedure Performed Yes -Type of Procedure Debridement -Clinical Debridement Subcutaneous -Tissue Removed Subcutaneous -Post Debridement (cm) - Length 0.5 -Post Debridement (cm) - Width 0.5 -Post Debridement (cm) - Depth 0.2 -Total Square (Post) (cm) 0.25 -Area of Debridement (cm) - Length 0.5 -Area of Debridement (cm) - Width 0.5 -Total Square (Area) (cm) 0.25 -Tunneling No -Undermining/Tunneling No -Circular Undermining No -Wound/Ulcer Outcome Not Healed -Ulcer Cleansing Rinsed/ Irrigated with Saline -Foul Odor after Cleansing No -Bioengineered Tissue No -Bleeding Controlled with Pressure -Treatment Response Procedure Tolerated Well -Debridement - Subq, 1st 20sq cm Yes Pain Scale: 0-10 Numeric Is Patient Pain Free? Yes - Nurse 3 - General Ulcer D/C NN Start: 01/29/22 10:54 Freq: Status: Active Protocol: Activity Type Activity Date Activity User E-sign Co-sign Detail Recorded Client Recorded Date Recorded By Document 01/29/22 11:18 AK [id number] 01/29/22 11:19 AK 01/29/22 11:18 Wound Care Nurse 3 #1- R MARTINES (TRAUMA) -Ulcer Cleansing Rinsed/ Irrigated with Saline -Foul Odor after Cleansing No -Negative Pressure Wound Therapy N/A -Primary Dressing Applied Promogran -Primary Dressing Covered/Secured with Dry Gauze, Secured with Tape -Promogran 1 Pain Scale: 0-10 Numeric Is Patient Pain Free? Yes WC - Visit Discharge Discharge Condition Stable Ambulatory Status Ambulatory Transportation Private [facility] Medication Reconcilliation completed & Yes provided to patient/care provider Clinical Summary of Care Provided Yes Assessment/Plan Assessment/Plan (1) Wound of right leg: CODE(S): S81.801A - Unspecified open wound, right lower leg, initial encounter QUALIFIERS: Encounter type: subsequent encounter Qualified Code(s): S81.801D - Unspecified open wound, right lower leg, subsequent encounter (2) Traumatic open wound of right lower leg: CODE(S): S81.801A - Unspecified open wound, right lower leg, initial encounter QUALIFIERS: Encounter type: subsequent encounter Qualified Code(s): S81.801D - Unspecified open wound, right lower leg, subsequent encounter (3) Chronic wound of extremity: (4) 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: CODE(S): I87.039 - 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 (5) Obesity (BMI 35.0-39.9 without comorbidity): CODE(S): E66.9 - Obesity, unspecified (6) Arthritis: CODE(S): M19.90 - Unspecified osteoarthritis, unspecified site (7) Obstructive sleep apnea: CODE(S): G47.33 - Obstructive sleep apnea (adult) (pediatric) (8) CPAP (continuous positive airway pressure) dependence: CODE(S): Z99.89 - Dependence on other enabling machines and devices (9) History of diabetes mellitus: CODE(S): Z86.39 - Personal history of other endocrine, nutritional and metabolic disease (10) History of deep vein thrombosis: CODE(S): Z86.718 - Personal history of other venous thrombosis and embolism (11) GERD (gastroesophageal reflux disease): CODE(S): K21.9 - Gastro-esophageal reflux disease without esophagitis (12) Hypertension: CODE(S): I10 - Essential (primary) hypertension (13) History of hemorrhoids: CODE(S): Z87.19 - Personal history of other diseases of the digestive system (14) Varicose veins with inflammation: CODE(S): I83.10 - Varicose veins of unspecified lower extremity with inflammation (15) Degenerative disc disease: (16) Scoliosis: CODE(S): M41.9 - Scoliosis, unspecified (17) History of umbilical hernia repair: CODE(S): Z98.890 - Other specified postprocedural states; Z87.19 - Personal history of other diseases of the digestive system (18) History of arthroscopic knee surgery: CODE(S): Z98.890 - Other specified postprocedural states (19) History of shoulder surgery: CODE(S): Z98.890 - Other specified postprocedural states (20) History of gastric restrictive surgery: CODE(S): Z98.84 - Bariatric surgery status (21) History of tonsillectomy: CODE(S): Z90.89 - Acquired absence of other organs PLAN: Plan This is a 51-year-old male who presented with a traumatic open wound on his right pretibial surface. This occurred on December 23, 2021. He was evaluated in an outpatient urgent care center, and oral Keflex was prescribed, which has been completed. Due to persisting periwound erythema, swab cultures were obtained at the patient's last visit, which were positive for Staphylococcus epidermidis. According to sensitivity results, the patient has been placed on doxycycline 100 mg p.o. twice daily for 8 days, which has now been completed. Efforts are to be continued to minimize swelling in the right lower extremity. The patient has been advised to elevate his right lower extremity is much as possible. He is to continue sleeping on a flat mattress at night. Activity has been encouraged. We are to continue compression to the right lower extremity by means of double Tubigrip's. Promogran is to be continued topically on a daily basis, with Adaptic as well. The patient has been instructed in the appropriate means of application. Optimizing nutrition has been recommended. Patient is relatively young, and experiences no limitations in his ambulatory capacity. Arterial disease of any degree of significance is not suspected. The patient is to return in 1 week for reassessment. Total time: 28 minutes
[2022-02-05 13:12] VITALS: BP 135/87; PULSE 61; TEMP 36.4; BMI 36.1
--- NOTE | 2022-02-05 13:56 | HP.PCM_ITS ---
History of Present Illness Date of Service: 02/05/22 Chief Complaint: Traumatic right leg wound History of Wound: This is a 51-year-old male who presented with a traumatic wound to the right pretibial surface. The wound occurred on December 23, 2021. While working on a deck, a wooden board impacted his right pretibial surface, creating a wound. Several days later, the patient was evaluated at the [facility], and was placed on a prescription for Keflex, which the patient was taking at the time of his initial evaluation. In addition, he was using antibiotic ointment topically. The patient's traumatic wound failed to heal, prompting him to seek medical attention at the [facility]. The patient has multiple pre-existing medical problems, which are listed below. He was formerly morbidly obese, weighing 360 pounds. Currently weighs about 245 pounds. Weight loss was precipitated by the performance of a gastric sleeve surgical procedure. He has 2 prior episodes of acute deep vein thrombosis in the right lower extremity, which occurred post operatively following surgical procedures. Patient does relate swelling in his right lower extremity, which typically occurs near the end of the day. He sleeps on a flat mattress at night. 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 [facility] Medical History Alcohol use Arthritis Arthritis Back pain Back pain Chronic wound of extremity CPAP (continuous positive airway pressure) dependence CPAP (continuous positive airway pressure) dependence Degenerative disc disease Diabetes Disorder of uvula DVT (deep venous thrombosis) Gastric reflux GERD (gastroesophageal reflux disease) Hay fever Hemorrhoids History of deep vein thrombosis History of diabetes mellitus History of echocardiogram History of hemorrhoids History of steroid therapy History of stress test HTN (hypertension) Hypertension Hypertension Kidney stones Knee pain Lab test negative for COVID-19 virus Leg cramps Obesity (BMI 35.0-39.9 without comorbidity) Obstructive sleep apnea 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 Scoliosis Shoulder pain Sleep apnea Traumatic open wound of right lower leg URI (upper respiratory infection) 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 Wears glasses Wound of right leg Home Medications calcium citrate 315 mg-vitamin D3 5 mcg (200 unit) tablet (Calcium Citrate + D) 2 tab PO QHS 04/25/20 [History Last Taken Unknown] multivitamin 2 cap PO DAILY 04/25/20 [History Last Taken Unknown] amlodipine 5 mg tablet 5 mg PO DAILY 08/04/20 [History Last Taken 05/25/21 05:00] mecobalamin (vitamin B12) 1,000 mcg disintegrating tablet,sublingual 1,500 mcg sublingual DAILY 08/04/20 [History Last Taken Unknown] metoprolol succinate 25 mg tablet,extended release 24 hr 25 mg PO DAILY 08/04/20 [History Last Taken 05/25/21 05:00] dextrin 3 gram/4 gram oral powder (Clear Fiber) 3 - 4 tsp PO DAILY 01/29/21 [History Last Taken Unknown] pantoprazole 20 mg tablet,delayed release (Protonix) 40 mg PO DAILY 01/29/21 [History Last Taken Unknown] tramadol 50 mg tablet 50 mg PO BID 03/15/21 [History Last Taken Unknown] celecoxib 200 mg capsule (Celebrex) 200 mg PO DAILY 05/23/21 [History Last Taken Unknown] cholecalciferol (vitamin D3) 10 mcg (400 unit) capsule (Vitamin D3) mcg PO DAILY 01/08/22 [History Last Taken Unknown] fexofenadine 180 mg tablet 180 mg PO DAILY 01/08/22 [History Last Taken Unknown] magnesium 1 tab PO QHS 01/08/22 [History Last Taken Unknown] omega 5-bue-bua-fish oil 1,200 mg (144 mg-216 mg) capsule (Fish Oil) 1 cap PO DAILY 01/08/22 [History Last Taken Unknown] Allergy/AdvReac Type Severity Reaction Status Date / Time olmesartan medoxomil Allergy Itching Verified 02/04/22 12:56 [From Rona] Family History Other Breast cancer Surgical History Deviated septum H/O foot surgery H/O hernia repair H/O knee surgery H/O shoulder surgery History of arthroscopic knee surgery History of gastric restrictive surgery History of shoulder surgery History of surgical removal of ganglion cyst History of tonsillectomy History of tonsillectomy History of umbilical hernia repair hx of gastric sleeve Social History Smoking Status: Never smoker alcohol intake: current alcohol intake frequency: a few times a month Alcohol type: hard liquor Vital Signs Vital Signs Vital Signs: 02/05/22 13:12 Temperature 97.5 F L Temperature Source Temporal Pulse Rate 61 Blood Pressure 135/87 H Blood Pressure Mean 103 Blood Pressure Source Monitor Blood Pressure Position Sitting Blood Pressure Location Right Arm Weight Weight: 245 lb Body Mass Index (BMI) 36.1 Physical Exam Const alert, oriented x3, no apparent distress and well nourished Constitutional Narrative: The patient is obese. General Appearance: cooperative, comfortable, well kempt and well developed Orientation / Consciousness: awake, oriented to person, oriented to place and oriented to time Exam Limitations: no limitations HEENT normocephalic, head/scalp atraumatic and hearing grossly normal bilaterally Head and Scalp: normal to inspection, normocephalic and atraumatic External Ear: external ears normal Eyes PERRL and EOMs intact bilaterally General Eye: normal appearance of both eyes Resp normal respiratory effort, normal air movement, no retractions and no use of accessory muscles Effort and Inspection: able to speak in complete sentences Extremity no calf tenderness General Extremity: Negative for clubbing or cyanosis Skin Wound Narrative: A wound is noted on the right pretibial surface. There is a small amount of bioburden. There is no sign of infection or cellulitis. Dimensions are documented elsewhere, and the wound appears to be smaller than noted previously. There is evidence of active granulation tissue. Neuro oriented x3, CN's II-XII intact bilaterally and moves all extremities Sensorium / Orientation: awake, alert, oriented to person, oriented to place and oriented to time Psych Appearance: grossly normal and appropriate Attitude: calm Activity / Motor Behavior: appropriate eye contact Speech: normal speech Mood & Affect: euthymic mood Thought Process: normal thought process Thought Content: normal thought content Attention / Concentration: attention grossly intact Debridement Note Debridement Note Wound debrided: Right pretibial surface Laterality: Right Type of Debridement: Excisional debridement Anesthesia Used: 5% Lidocaine Gel and Cetacaine Depth: Down to and including healthy tissue and in the subcutaneous layer Percentage of wound debrided: 100 Instrument Used: 5mm curette Tissue Removed: Bioburden Severity: Fat Layer Exposed Amount of bleeding with debridement: Mild Bleeding Controlled with: Compression and gauze Patient tolerated procedure: Patient tolerated procedure well Post-Debridement Measurements and Additional Note: Post-Debridement Measurements/Treatment - Nurse 1 - General Ulcer Assessment Start: 01/29/22 10:54 Freq: Status: Active Protocol: EVELIN Activity Type Activity Date Activity User E-sign Co-sign Detail Recorded Client Recorded Date Recorded By Document 01/29/22 10:55 TALAT [id number] 01/29/22 10:56 AK Document 02/05/22 13:12 TALAT [id number] 02/05/22 13:13 AK 01/29/22 02/05/22 10:55 13:12 - Today's Visit Information Type of service Follow-up Visit Follow-up Visit (Physician/FUEL DISTRIBUTION SYSTEM OPERATOR (Physician/FUEL DISTRIBUTION SYSTEM OPERATOR ) ) Arrival Mode Ambulatory Ambulatory Patient Identification Verified (Name & Yes Yes ) Patient Requires Transmission-Based No Precautions Height and Weight Body Mass Index (BMI) 36.1 36.1 BMI Classification Obese Obese Vital Signs Temperature (97.8 F-99.1 F) 96.2 F L 97.5 F L Temperature Source Temporal Temporal Pulse Rate (60-100) 57 L 61 Pulse Location Monitor Monitor Blood Pressure (90/60-120/80) 156/87 H 135/87 H Blood Pressure Mean 110 103 Source Monitor Monitor Position Sitting Blood Pressure Location Right Arm History Since Last Visit- (Skip if this is Patient's initial visit) Have you changed medications since your No No last visit? Any new allergies or adverse reactions No No Had a fall/change in ADL's that may No No increase risk of falls Signs or symptoms of abuse and/or No No neglect since last visit Have you been in the hospital since your No No last visit? Has dressing in place as prescribed Yes Yes Has compression in place as prescribed N/A Yes Has offloadiing in place as prescribed N/A N/A Experienced any changes in pain level or No No management Left Footwear Regular Shoe Regular Shoe Right Footwear Regular Shoe Regular Shoe Pain Scale: 0-10 Numeric Is Patient Pain Free? Yes Yes - Nurse 1 - General Ulcer Measurement Start: 01/29/22 10:54 Freq: Status: Active Protocol: Activity Type Activity Date Activity User E-sign Co-sign Detail Recorded Client Recorded Date Recorded By Document 01/29/22 10:55 TALAT [id number] 01/29/22 10:56 AK Document 02/05/22 13:12 AK [id number] 02/05/22 13:13 AK 01/29/22 02/05/22 10:55 13:12 Wound Center Nurse 1 #1- R MARTINES (TRAUMA) -Combined with other wound No -Current Size (cm) - Length 0.5 0.5 -Current Size (cm) - Width 0.5 0.5 -Current Size (cm) - Depth 0.2 0.1 -Total Square Cm 0.25 0.25 -Photo Taken No -Tunneling No -Undermining/Tunneling No -Circular Undermining No -Change in Wound Grade/Stage No -Exudate Amt Small Small -Exudate Type Serosanguineous Serosanguineous -Wound Margin Distinct, Distinct, Outline Outline Attached Attached -Granulation Amt Medium (34-66%) Small (1-33%) -Granulation Quality [place] -Slough/Fibrin Yes -Necrosis Amt Medium (34-66%) None Present (0 %) -Necrotic Tissue Type Adherent Slough -Structure Exposed N/A -Texture (Malou-wound Skin Appearance) No Abnormality, Assessed, Assessed Scarring -Moisture (Malou-wound Skin Appearance) No Abnormality, No Abnormality, Assessed Assessed -Color (Malou-wound Skin Appearance) No Abnormality, No Abnormality, Assessed Assessed -Temperature (Malou-wound Skin No Abnormality No Abnormality Appearance) (Pt Warm) (Pt Warm) -Tenderness on Palpation ([place]ou-wound No No Skin Appearance) -Ulcer Cleansing Rinsed/ Rinsed/ Irrigated with Irrigated with Saline Saline -Foul Odor after Cleansing No No -Anesthetic Used 5% Lidocaine 5% Lidocaine Gel Gel Right Calf (cm) 37.2 Right Ankle (cm) 23.5 WC - Nurse 2 - General Ulcer CM Notes Start: 01/29/22 10:54 Freq: Status: Active Protocol: Activity Type Activity Date Activity User E-sign Co-sign Detail Recorded Client Recorded Date Recorded By Document 01/29/22 11:35 PL [id number] 01/29/22 11:36 PL Document 02/05/22 13:46 PL [id number] 02/05/22 13:46 PL 01/29/22 02/05/22 11:35 13:46 Wound Center Nurse 2 #1- R MARTINES (TRAUMA) -Time 11:00 13:21 -Correct Patient Yes Yes -Correct Side, Site, Position Yes Yes -Correct Procedure Yes Yes -Procedure Performed Yes Yes -Type of Procedure Debridement Debridement -Clinical Debridement Subcutaneous Subcutaneous -Tissue Removed Subcutaneous Subcutaneous -Post Debridement (cm) - Length 0.5 0.5 -Post Debridement (cm) - Width 0.5 0.5 -Post Debridement (cm) - Depth 0.2 0.1 -Total Square (Post) (cm) 0.25 0.25 -Area of Debridement (cm) - Length 0.5 0.5 -Area of Debridement (cm) - Width 0.5 0.5 -Total Square (Area) (cm) 0.25 0.25 -Tunneling No No -Undermining/Tunneling No No -Circular Undermining No No -Wound/Ulcer Outcome Not Healed Not Healed -Ulcer Cleansing Rinsed/ Rinsed/ Irrigated with Irrigated with Saline Saline -Foul Odor after Cleansing No No -Bioengineered Tissue No No -Bleeding Controlled with Pressure Pressure -Treatment Response Procedure Procedure Tolerated Well Tolerated Well -Debridement - Subq, 1st 20sq cm Yes Yes Pain Scale: 0-10 Numeric Is Patient Pain Free? Yes Yes - Nurse 3 - General Ulcer D/C NN Start: 01/29/22 10:54 Freq: Status: Active Protocol: Activity Type Activity Date Activity User E-sign Co-sign Detail Recorded Client Recorded Date Recorded By Document 01/29/22 11:18 TALAT [id number] 01/29/22 11:19 TALAT 01/29/22 11:18 Wound Care Nurse 3 #1- R MARTINES (TRAUMA) -Ulcer Cleansing Rinsed/ Irrigated with Saline -Foul Odor after Cleansing No -Negative Pressure Wound Therapy N/A -Primary Dressing Applied Promogran -Primary Dressing Covered/Secured with Dry Gauze, Secured with Tape -Promogran 1 Pain Scale: 0-10 Numeric Is Patient Pain Free? Yes - Visit Discharge Discharge Condition Stable Ambulatory Status Ambulatory Transportation Private Auto Medication Reconcilliation completed & Yes provided to patient/care provider Clinical Summary of Care Provided Yes Assessment/Plan Assessment/Plan (1) Wound of right leg: CODE(S): S81.801A - Unspecified open wound, right lower leg, initial encounter QUALIFIERS: Encounter type: subsequent encounter Qualified Code(s): S81.801D - Unspecified open wound, right lower leg, subsequent encounter (2) Traumatic open wound of right lower leg: CODE(S): S81.801A - Unspecified open wound, right lower leg, initial encounter QUALIFIERS: Encounter type: subsequent encounter Qualified Code(s): S81.801D - Unspecified open wound, right lower leg, subsequent encounter (3) Chronic wound of extremity: (4) 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: CODE(S): I87.039 - 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 (5) Obesity (BMI 35.0-39.9 without comorbidity): CODE(S): E66.9 - Obesity, unspecified (6) Arthritis: CODE(S): M19.90 - Unspecified osteoarthritis, unspecified site (7) Obstructive sleep apnea: CODE(S): G47.33 - Obstructive sleep apnea (adult) (pediatric) (8) CPAP (continuous positive airway pressure) dependence: CODE(S): Z99.89 - Dependence on other enabling machines and devices (9) History of diabetes mellitus: CODE(S): Z86.39 - Personal history of other endocrine, nutritional and metabolic disease (10) History of deep vein thrombosis: CODE(S): Z86.718 - Personal history of other venous thrombosis and embolism (11) GERD (gastroesophageal reflux disease): CODE(S): K21.9 - Gastro-esophageal reflux disease without esophagitis (12) Hypertension: CODE(S): I10 - Essential (primary) hypertension (13) History of hemorrhoids: CODE(S): Z87.19 - Personal history of other diseases of the digestive sy stem (14) Varicose veins with inflammation: CODE(S): I83.10 - Varicose veins of unspecified lower extremity with inflammation (15) Degenerative disc disease: (16) Scoliosis: CODE(S): M41.9 - Scoliosis, unspecified (17) History of umbilical hernia repair: CODE(S): Z98.890 - Other specified postprocedural states; Z87.19 - Personal history of other diseases of the digestive system (18) History of arthroscopic knee surgery: CODE(S): Z98.890 - Other specified postprocedural states (19) History of shoulder surgery: CODE(S): Z98.890 - Other specified postprocedural states (20) History of gastric restrictive surgery: CODE(S): Z98.84 - Bariatric surgery status (21) History of tonsillectomy: CODE(S): Z90.89 - Acquired absence of other organs PLAN: Plan This is a 51-year-old male who presented with a traumatic open wound on his right pretibial surface. This occurred on December 23, 2021. He was evaluated in an outpatient urgent care center, and oral Keflex was prescribed, which has been completed. Due to persisting periwound erythema, swab cultures were obtained at the patient's recent visit, which were positive for Staphylococcus epidermidis. According to sensitivity results, the patient has been placed on doxycycline 100 mg p.o. twice daily for 8 days, which has now been completed. Efforts are to be continued to minimize swelling in the right lower extremity. The patient has been advised to elevate his right lower extremity is much as possible. He is to continue sleeping on a flat mattress at night. Activity has been encouraged. We are to continue compression to the right lower extremity by means of double Tubigrip's. Promogran is to be continued topically on a daily basis, with Adaptic as well. The patient has been instructed in the appropriate means of application. Optimizing nutrition has been recommended. Patient is relatively young, and experiences no limitations in his ambulatory capacity. Arterial disease of any degree of significance is not suspected. The patient is to return in 2 weeks for reassessment. Total time: 29 minutes
[2022-02-19 07:59] VITALS: BP 135/68; PULSE 53; RESP 18; TEMP 35.9; BMI 36.1
--- NOTE | 2022-02-19 08:27 | HP.PCM_ITS ---
History of Present Illness Date of Service: 02/19/22 Chief Complaint: Traumatic right leg wound History of Wound: This is a 51-year-old male who presented with a traumatic wound to the right pretibial surface. The wound occurred on December 23, 2021. While working on a deck, a wooden board impacted his right pretibial surface, creating a wound. Several days later, the patient was evaluated at the [facility], and was placed on a prescription for Keflex, which the patient was taking at the time of his initial evaluation. In addition, he was using antibiotic ointment topically. The patient's traumatic wound failed to heal, prompting him to seek medical attention at the [facility]. The patient has multiple pre-existing medical problems, which are listed below. He was formerly morbidly obese, weighing 360 pounds. Currently weighs about 245 pounds. Weight loss was precipitated by the performance of a gastric sleeve surgical procedure. He has 2 prior episodes of acute deep vein thrombosis in the right lower extremity, which occurred post operatively following surgical procedures. Patient does relate swelling in his right lower extremity, which typically occurs near the end of the day. He sleeps on a flat mattress at night. 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 [facility] Medical History Alcohol use Arthritis Arthritis Back pain Back pain Chronic wound of extremity CPAP (continuous positive airway pressure) dependence CPAP (continuous positive airway pressure) dependence Degenerative disc disease Diabetes Disorder of uvula DVT (deep venous thrombosis) Gastric reflux GERD (gastroesophageal reflux disease) Hay fever Hemorrhoids History of deep vein thrombosis History of diabetes mellitus History of echocardiogram History of hemorrhoids History of steroid therapy History of stress test HTN (hypertension) Hypertension Hypertension Kidney stones Knee pain Lab test negative for COVID-19 virus Leg cramps Obesity (BMI 35.0-39.9 without comorbidity) Obstructive sleep apnea 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 Scoliosis Shoulder pain Sleep apnea Traumatic open wound of right lower leg URI (upper respiratory infection) 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 Wears glasses Wound of right leg Home Medications calcium citrate 315 mg-vitamin D3 5 mcg (200 unit) tablet (Calcium Citrate + D) 2 tab PO QHS 04/25/20 [History Last Taken Unknown] multivitamin 2 cap PO DAILY 04/25/20 [History Last Taken Unknown] amlodipine 5 mg tablet 5 mg PO DAILY 08/04/20 [History Last Taken 05/25/21 05:00] mecobalamin (vitamin B12) 1,000 mcg disintegrating tablet,sublingual 1,500 mcg sublingual DAILY 08/04/20 [History Last Taken Unknown] metoprolol succinate 25 mg tablet,extended release 24 hr 25 mg PO DAILY 08/04/20 [History Last Taken 05/25/21 05:00] dextrin 3 gram/4 gram oral powder (Clear Fiber) 3 - 4 tsp PO DAILY 01/29/21 [History Last Taken Unknown] pantoprazole 20 mg tablet,delayed release (Protonix) 40 mg PO DAILY 01/29/21 [History Last Taken Unknown] tramadol 50 mg tablet 50 mg PO BID 03/15/21 [History Last Taken Unknown] celecoxib 200 mg capsule (Celebrex) 200 mg PO DAILY 05/23/21 [History Last Taken Unknown] cholecalciferol (vitamin D3) 10 mcg (400 unit) capsule (Vitamin D3) mcg PO DAILY 01/08/22 [History Last Taken Unknown] fexofenadine 180 mg tablet 180 mg PO DAILY 01/08/22 [History Last Taken Unknown] magnesium 1 tab PO QHS 01/08/22 [History Last Taken Unknown] omega 5-yus-avt-fish oil 1,200 mg (144 mg-216 mg) capsule (Fish Oil) 1 cap PO DAILY 01/08/22 [History Last Taken Unknown] gabapentin 100 mg capsule 100 mg PO BID 02/11/22 [History Last Taken Unknown] tadalafil 20 mg tablet 20 mg PO DAILY PRN 02/11/22 [History Last Taken Unknown] Allergy/AdvReac Type Severity Reaction Status Date / Time olmesartan medoxomil Allergy Itching Verified 02/04/22 12:56 [From Rona] Family History Other Breast cancer Surgical History Deviated septum H/O foot surgery H/O hernia repair H/O knee surgery H/O shoulder surgery History of arthroscopic knee surgery History of gastric restrictive surgery History of shoulder surgery History of surgical removal of ganglion cyst History of tonsillectomy History of tonsillectomy History of umbilical hernia repair hx of gastric sleeve Social History Smoking Status: Never smoker alcohol intake: current alcohol intake frequency: a few times a month Alcohol type: hard liquor Vital Signs Vital Signs Vital Signs: 02/19/22 07:59 Temperature 96.7 F L Temperature Source Temporal Pulse Rate 53 L Respiratory Rate 18 Blood Pressure 135/68 H Blood Pressure Mean 90 Blood Pressure Source Monitor Weight Weight: 245 lb Body Mass Index (BMI) 36.1 Physical Exam Const alert, oriented x3, no apparent distress and well nourished Constitutional Narrative: The patient is obese. General Appearance: cooperative, comfortable, well kempt and well developed Orientation / Consciousness: awake, oriented to person, oriented to place and oriented to time Exam Limitations: no limitations HEENT normocephalic, head/scalp atraumatic and hearing grossly normal bilaterally Head and Scalp: normal to inspection, normocephalic and atraumatic External Ear: external ears normal Eyes PERRL and EOMs intact bilaterally General Eye: normal appearance of both eyes Resp normal respiratory effort, normal air movement, no retractions and no use of accessory muscles Effort and Inspection: able to speak in complete sentences Extremity no calf tenderness General Extremity: Negative for clubbing or cyanosis Skin Wound Narrative: A wound is noted on the right pretibial surface. There is a small amount of bioburden. There is no sign of infection or cellulitis. Dimensions are documented elsewhere, and the wound appears to be smaller than noted previously. There is evidence of active granulation tissue. Neuro oriented x3, CN's II-XII intact bilaterally, moves all extremities and no focal motor deficits Sensorium / Orientation: awake, alert, oriented to person, oriented to place and oriented to time Psych Appearance: grossly normal and appropriate Attitude: calm Activity / Motor Behavior: appropriate eye contact Speech: normal speech Mood & Affect: euthymic mood Thought Process: normal thought process Thought Content: normal thought content Attention / Concentration: attention grossly intact Debridement Note Debridement Note Wound debrided: Right pretibial traumatic wound Laterality: Right Type of Debridement: Excisional debridement Anesthesia Used: 5% Lidocaine Gel Depth: Down to and including healthy tissue and in the subcutaneous layer Percentage of wound debrided: 100 Instrument Used: 5mm curette Tissue Removed: Bioburden and desiccated Promogran Severity: Fat Layer Exposed Amount of bleeding with debridement: Mild Bleeding Controlled with: Compression and gauze Patient tolerated procedure: Patient tolerated procedure well Post-Debridement Measurements and Additional Note: Post-Debridement Measurements/Treatment WC - Nurse 1 - General Ulcer Assessment Start: 01/29/22 10:54 Freq: Status: Active Protocol: [email or web address].[email or web address] Activity Type Activity Date Activity User E-sign Co-sign Detail Recorded Client Recorded Date Recorded By Document 01/29/22 10:55 AK [id number] 01/29/22 10:56 AK Document 02/05/22 13:12 AK [id number] 02/05/22 13:13 AK Document 02/19/22 07:59 DL [id number] 02/19/22 08:04 DL 01/29/22 02/05/22 02/19/22 10:55 13:12 07:59 WC - Today's Visit Information Type of service Follow-up Visit Follow-up Visit Follow-up Visit (Physician/STUDENT RECORDS SPECIALIST (Physician/STUDENT RECORDS SPECIALIST (Physician/STUDENT RECORDS SPECIALIST ) ) ) Arrival Mode Ambulatory Ambulatory Ambulatory Transfer Assistance None Patient Identification Verified (Name & Yes Yes Yes ) Patient Requires Transmission-Based No No Precautions Height and Weight Body Mass Index (BMI) 36.1 36.1 36.1 BMI Classification Obese Obese Obese Vital Signs Temperature (97.8 F-99.1 F) 96.2 F L 97.5 F L 96.7 F L Temperature Source Temporal Temporal Temporal Pulse Rate (60-100) 57 L 61 53 L Pulse Location Monitor Monitor Monitor Respiratory Rate (12-18) 18 Blood Pressure (90/60-120/80) 156/87 H 135/87 H 135/68 H Blood Pressure Mean 110 103 90 Source Monitor Monitor Monitor Position Sitting Blood Pressure Location Right Arm History Since Last Visit- (Skip if this is Patient's initial visit) Have you changed medications since your No No No last visit? Any new allergies or adverse reactions No No No Had a fall/change in ADL's that may No No No increase risk of falls Signs or symptoms of abuse and/or No No No neglect since last visit Have you been in the hospital since your No No No last visit? Has dressing in place as prescribed Yes Yes Yes Has compression in place as prescribed N/A Yes No Has offloadiing in place as prescribed N/A N/A N/A Experienced any changes in pain level or No No No management Left Footwear Regular Shoe Regular Shoe Right Footwear Regular Shoe Regular Shoe Pain Scale: 0-10 Numeric Is Patient Pain Free? Yes Yes Yes WC - Nurse 1 - General Ulcer Measurement Start: 01/29/22 10:54 Freq: Status: Active Protocol: Activity Type Activity Date Activity User E-sign Co-sign Detail Recorded Client Recorded Date Recorded By Document 01/29/22 10:55 NE [id number] 01/29/22 10:56 AK Document 02/05/22 13:12 AK [id number] 02/05/22 13:13 AK Document 02/19/22 07:59 DL [id number] 02/19/22 08:04 DL 01/29/22 02/05/22 02/19/22 10:55 13:12 07:59 Wound Center Nurse 1 #1- R MARTINES (TRAUMA) -Combined with other wound No -Current Size (cm) - Length 0.5 0.5 0.1 -Current Size (cm) - Width 0.5 0.5 0.1 -Current Size (cm) - Depth 0.2 0.1 0.1 -Total Square Cm 0.25 0.25 0.01 -Photo Taken No Yes -Tunneling No -Undermining/Tunneling No -Circular Undermining No -Change in Wound Grade/Stage No -Exudate Amt Small Small None Present -Exudate Type Serosanguineous Serosanguineous -Wound Margin Distinct, Distinct, Distinct, Outline Outline Outline Attached Attached Attached -Granulation Amt Medium (34-66%) Small (1-33%) Small (1-33%) -Granulation Quality Maringouin Maringouin Maringouin -Slough/Fibrin Yes -Necrosis Amt Medium (34-66%) None Present (0 Small (1-33%) %) -Necrotic Tissue Type Adherent Slough Adherent Slough -Structure Exposed N/A N/A -Texture (Malou-wound Skin Appearance) No Abnormality, Assessed, Scarring Assessed Scarring -Moisture (Malou-wound Skin Appearance) No Abnormality, No Abnormality, No Abnormality Assessed Assessed -Color (Malou-wound Skin Appearance) No Abnormality, No Abnormality, No Abnormality Assessed Assessed -Temperature (Malou-wound Skin No Abnormality No Abnormality No Abnormality Appearance) (Pt Warm) (Pt Warm) (Pt Warm) -Tenderness on Palpation (Malou-wound No No No Skin Appearance) -Ulcer Cleansing Rinsed/ Rinsed/ Rinsed/ Irrigated with Irrigated with Irrigated with Saline Saline Saline -Foul Odor after Cleansing No No No -Anesthetic Used 5% Lidocaine 5% Lidocaine 5% Lidocaine Gel Gel Gel Right Calf (cm) 37.2 38.5 Right Ankle (cm) 23.5 24 WC - Nurse 2 - General Ulcer CM Notes Start: 01/29/22 10:54 Freq: Status: Active Protocol: Activity Type Activity Date Activity User E-sign Co-sign Detail Recorded Client Recorded Date Recorded By Document 01/29/22 11:35 PL [id number] 01/29/22 11:36 PL Document 02/05/22 13:46 PL [id number] 02/05/22 13:46 PL 01/29/22 02/05/22 11:35 13:46 Wound Center Nurse 2 #1- R MARTINES (TRAUMA) -Time 11:00 13:21 -Correct Patient Yes Yes -Correct Side, Site, Position Yes Yes -Correct Procedure Yes Yes -Procedure Performed Yes Yes -Type of Procedure Debridement Debridement -Clinical Debridement Subcutaneous Subcutaneous -Tissue Removed Subcutaneous Subcutaneous -Post Debridement (cm) - Length 0.5 0.5 -Post Debridement (cm) - Width 0.5 0.5 -Post Debridement (cm) - Depth 0.2 0.1 -Total Square (Post) (cm) 0.25 0.25 -Area of Debridement (cm) - Length 0.5 0.5 -Area of Debridement (cm) - Width 0.5 0.5 -Total Square (Area) (cm) 0.25 0.25 -Tunneling No No -Undermining/Tunneling No No -Circular Undermining No No -Wound/Ulcer Outcome Not Healed Not Healed -Ulcer Cleansing Rinsed/ Rinsed/ Irrigated with Irrigated with Saline Saline -Foul Odor after Cleansing No No -Bioengineered Tissue No No -Bleeding Controlled with Pressure Pressure -Treatment Response Procedure Procedure Tolerated Well Tolerated Well -Debridement - Subq, 1st 20sq cm Yes Yes Pain Scale: 0-10 Numeric Is Patient Pain Free? Yes Yes WC - Nurse 3 - General Ulcer D/C NN Start: 01/29/22 10:54 Freq: Status: Active Protocol: Activity Type Activity Date Activity User E-sign Co-sign Detail Recorded Client Recorded Date Recorded By Document 01/29/22 11:18 TALAT [id number] 01/29/22 11:19 TALAT 01/29/22 11:18 Wound Care Nurse 3 #1- R MARTINES (TRAUMA) -Ulcer Cleansing Rinsed/ Irrigated with Saline -Foul Odor after Cleansing No -Negative Pressure Wound Therapy N/A -Primary Dressing Applied Promogran -Primary Dressing Covered/Secured with Dry Gauze, Secured with Tape -Promogran 1 Pain Scale: 0-10 Numeric Is Patient Pain Free? Yes WC - Visit Discharge Discharge Condition Stable Ambulatory Status Ambulatory Transportation Private Auto Medication Reconcilliation completed & Yes provided to patient/care provider Clinical Summary of Care Provided Yes Assessment/Plan Assessment/Plan (1) Wound of right leg: CODE(S): S81.801A - Unspecified open wound, right lower leg, initial encounter QUALIFIERS: Encounter type: subsequent encounter Qualified Code(s): S81.801D - Unspecified open wound, right lower leg, subsequent encounter (2) Traumatic open wound of right lower leg: CODE(S): S81.801A - Unspecified open wound, right lower leg, initial encounter QUALIFIERS: Encounter type: subsequent encounter Qualified Code(s): S81.801D - Unspecified open wound, right lower leg, subsequent encounter (3) Chronic wound of extremity: (4) 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: CODE(S): I87.039 - 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 (5) Obesity (BMI 35.0-39.9 without comorbidity): CODE(S): E66.9 - Obesity, unspecified (6) Arthritis: CODE(S): M19.90 - Unspecified osteoarthritis, unspecified site (7) Obstructive sleep apnea: CODE(S): G47.33 - Obstructive sleep apnea (adult) (pediatric) (8) CPAP (continuous positive airway pressure) dependence: CODE(S): Z99.89 - Dependence on other enabling machines and devices (9) History of diabetes mellitus: CODE(S): Z86.39 - Personal history of other endocrine, nutritional and metabolic disease (10) History of deep vein thrombosis: CODE(S): Z86.718 - Personal history of other venous thrombosis and embolism (11) GERD (gastroesophageal reflux disease): CODE(S): K21.9 - Gastro-esophageal reflux disease without esophagitis (12) Hypertension: CODE(S): I10 - Essential (primary) hypertension (13) History of hemorrhoids: CODE(S): Z87.19 - Personal history of other diseases of the digestive system (14) Varicose veins with inflammation: CODE(S): I83.10 - Varicose veins of unspecified lower extremity with inflammation (15) Degenerative disc disease: (16) Scoliosis: CODE(S): M41.9 - Scoliosis, unspecified (17) History of umbilical hernia repair: CODE(S): Z98.890 - Other specified postprocedural states; Z87.19 - Personal history of other diseases of the digestive system (18) History of arthroscopic knee surgery: CODE(S): Z98.890 - Other specified postprocedural states (19) History of shoulder surgery: CODE(S): Z98.890 - Other specified postprocedural states (20) History of gastric restrictive surgery: CODE(S): Z98.84 - Bariatric surgery status (21) History of tonsillectomy: CODE(S): Z90.89 - Acquired absence of other organs PLAN: Plan This is a 51-year-old male who presented with a traumatic open wound on his right pretibial surface. This occurred on December 23, 2021. He was evaluated in an outpatient urgent care center, and oral Keflex was prescribed, which has been completed. Due to persisting periwound erythema, swab cultures were obtained at the patient's recent visit, which were positive for Staphylococcus epidermidis. According to sensitivity results, the patient has been placed on doxycycline 100 mg p.o. twice daily for 8 days, which has now been completed. Efforts are to be continued to minimize swelling in the right lower extremity. The patient has been advised to elevate his right lower extremity is much as possible. He is to continue sleeping on a flat mattress at night. Activity has been encouraged. We are to continue compression to the right lower extremity by means of double Tubigrip's. We are to transition from the use of Promogran to the use of collagen hydrogel, which we applied topically on a daily basis. The patient has been instructed in the appropriate means of application. Optimizing nutrition has been recommended. Patient is relatively young, and experiences no limitations in his ambulatory capacity. Arterial disease of any degree of significance is not suspected. The patient is to return in 2 weeks for reassessment. Total time: 28 minutes
== END 2022-02-25 23:59 | disposition home or self-care (01) ==
LOC: WC 08:00
PROVIDERS: PCP Family Medicine; Visit Provider Surgery
DX: S81.801D Unspecified open wound, right lower leg, subsequent encounter (principal); I87.039 Postthrombotic syndrome with ulcer and inflammation of unspecified lower extremity; E11.9 Type 2 diabetes mellitus without complications; G47.33 Obstructive sleep apnea (adult) (pediatric); I83.90 Asymptomatic varicose veins of unspecified lower extremity; E66.9 Obesity, unspecified; M41.9 Scoliosis, unspecified; K21.9 Gastro-esophageal reflux disease without esophagitis; M19.90 Unspecified osteoarthritis, unspecified site; I10 Essential (primary) hypertension; Z86.39 Personal history of other endocrine, nutritional and metabolic disease; Z86.718 Personal history of other venous thrombosis and embolism; Z87.19 Personal history of other diseases of the digestive system; I83.10 Varicose veins of unspecified lower extremity with inflammation; Z90.89 Acquired absence of other organs; Z98.84 Bariatric surgery status
CPT/HCPCS: 11042

== ENCOUNTER 2022-03-19 11:00 | Outpatient (RCR) | payer OTHER, SELFPAY ==
[2022-02-26 00:36] VITALS: BP 135/68; PULSE 53; RESP 18; TEMP 35.9; BMI 36.1
[2022-03-05 11:14] VITALS: BP 133/75; PULSE 56; TEMP 36.6; BMI 36.1
--- NOTE | 2022-03-05 13:28 | HP.PCM_ITS ---
History of Present Illness Date of Service: 03/05/22 Chief Complaint: Traumatic right leg wound History of Wound: This is a 51-year-old male who presented with a traumatic wound to the right pretibial surface. The wound occurred on December 23, 2021. While working on a deck, a wooden board impacted his right pretibial surface, creating a wound. Several days later, the patient was evaluated at the [facility], and was placed on a prescription for Keflex, which the patient was taking at the time of his initial evaluation. In addition, he was using antibiotic ointment topically. The patient's traumatic wound failed to heal, prompting him to seek medical attention at the [facility]. The patient has multiple pre-existing medical problems, which are listed below. He was formerly morbidly obese, weighing 360 pounds. Currently weighs about 245 pounds. Weight loss was precipitated by the performance of a gastric sleeve surgical procedure. He has 2 prior episodes of acute deep vein thrombosis in the right lower extremity, which occurred post operatively following surgical procedures. Patient does relate swelling in his right lower extremity, which typically occurs near the end of the day. He sleeps on a flat mattress at night. 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 [facility]LY [facility] Medical History Alcohol use Arthritis Arthritis Back pain Back pain Chronic wound of extremity CPAP (continuous positive airway pressure) dependence CPAP (continuous positive airway pressure) dependence Degenerative disc disease Diabetes Disorder of uvula DVT (deep venous thrombosis) Gastric reflux GERD (gastroesophageal reflux disease) Hay fever Hemorrhoids History of deep vein thrombosis History of diabetes mellitus History of echocardiogram History of hemorrhoids History of steroid therapy History of stress test HTN (hypertension) Hypertension Hypertension Kidney stones Knee pain Lab test negative for COVID-19 virus Leg cramps Obesity (BMI 35.0-39.9 without comorbidity) Obstructive sleep apnea 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 Scoliosis Shoulder pain Sleep apnea Traumatic open wound of right lower leg URI (upper respiratory infection) 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 Wears glasses Wound of right leg Home Medications calcium citrate 315 mg-vitamin D3 5 mcg (200 unit) tablet (Calcium Citrate + D) 2 tab PO QHS 04/25/20 [History Last Taken Unknown] multivitamin 2 cap PO DAILY 04/25/20 [History Last Taken Unknown] amlodipine 5 mg tablet 5 mg PO DAILY 08/04/20 [History Last Taken 05/25/21 05:00] mecobalamin (vitamin B12) 1,000 mcg disintegrating tablet,sublingual 1,500 mcg sublingual DAILY 08/04/20 [History Last Taken Unknown] metoprolol succinate 25 mg tablet,extended release 24 hr 25 mg PO DAILY 08/04/20 [History Last Taken 05/25/21 05:00] dextrin 3 gram/4 gram oral powder (Clear Fiber) 3 - 4 tsp PO DAILY 01/29/21 [History Last Taken Unknown] pantoprazole 20 mg tablet,delayed release (Protonix) 40 mg PO DAILY 01/29/21 [History Last Taken Unknown] tramadol 50 mg tablet 50 mg PO BID 03/15/21 [History Last Taken Unknown] celecoxib 200 mg capsule (Celebrex) 200 mg PO DAILY 05/23/21 [History Last Taken Unknown] cholecalciferol (vitamin D3) 10 mcg (400 unit) capsule (Vitamin D3) mcg PO DAILY 01/08/22 [History Last Taken Unknown] fexofenadine 180 mg tablet 180 mg PO DAILY 01/08/22 [History Last Taken Unknown] magnesium 1 tab PO QHS 01/08/22 [History Last Taken Unknown] omega 2-ygw-kso-fish oil 1,200 mg (144 mg-216 mg) capsule (Fish Oil) 1 cap PO DAILY 01/08/22 [History Last Taken Unknown] gabapentin 100 mg capsule 100 mg PO BID 02/11/22 [History Last Taken Unknown] tadalafil 20 mg tablet 20 mg PO DAILY PRN 02/11/22 [History Last Taken Unknown] Allergy/AdvReac Type Severity Reaction Status Date / Time olmesartan medoxomil Allergy Itching Verified 03/01/22 09:06 [From Rona] Family History Other Breast cancer Surgical History Deviated septum H/O foot surgery H/O hernia repair H/O knee surgery H/O shoulder surgery History of arthroscopic knee surgery History of gastric restrictive surgery History of shoulder surgery History of surgical removal of ganglion cyst History of tonsillectomy History of tonsillectomy History of umbilical hernia repair hx of gastric sleeve Social History Smoking Status: Never smoker alcohol intake: current alcohol intake frequency: a few times a month Alcohol type: hard liquor Vital Signs Vital Signs Vital Signs: 03/05/22 11:14 Temperature 97.8 F Temperature Source Temporal Pulse Rate 56 L Blood Pressure 133/75 H Blood Pressure Mean 94 Blood Pressure Source Monitor Blood Pressure Position Sitting Blood Pressure Location Right Arm Weight Weight: 245 lb Body Mass Index (BMI) 36.1 Physical Exam Const alert, oriented x3, no apparent distress and well nourished Constitutional Narrative: The patient is obese. General Appearance: cooperative, comfortable, well kempt and well developed Orientation / Consciousness: awake, oriented to person, oriented to place and oriented to time Exam Limitations: no limitations HEENT normocephalic, head/scalp atraumatic and hearing grossly normal bilaterally Head and Scalp: normal to inspection, normocephalic and atraumatic External Ear: external ears normal Eyes PERRL and EOMs intact bilaterally General Eye: normal appearance of both eyes Resp normal respiratory effort, normal air movement, no retractions and no use of accessory muscles Effort and Inspection: able to speak in complete sentences Extremity no calf tenderness General Extremity: Negative for clubbing or cyanosis Skin Wound Narrative: The wound on the right pretibial area now appears to be completely healed and epithelialized. Neuro oriented x3, CN's II-XII intact bilaterally, moves all extremities and no focal motor deficits Sensorium / Orientation: awake, alert, oriented to person, oriented to place and oriented to time Psych Appearance: grossly normal and appropriate Attitude: calm Activity / Motor Behavior: appropriate eye contact Speech: normal speech Mood & Affect: euthymic mood Thought Process: normal thought process Thought Content: normal thought content Attention / Concentration: attention grossly intact Debridement Note Debridement Note No debridement was completed: No debridement was completed today (There is no remaining open wound or ulceration.) Post-Debridement Measurements and Additional Note: Post-Debridement Measurements/Treatment [facility] - Nurse 1 - General Ulcer Assessment Start: 03/05/22 11:14 Freq: Status: Active Protocol: EVELIN Activity Type Activity Date Activity User E-sign Co-sign Detail Recorded Client Recorded Date Recorded By Document 03/05/22 11:14 PANCHITO [id number] 03/05/22 11:15 PANCHITO 03/05/22 11:14 WC - Today's Visit Information Type of service Follow-up Visit (Physician/[employer] ) Arrival Mode Ambulatory Patient Identification Verified (Name & Yes ) Height and Weight Body Mass Index (BMI) 36.1 BMI Classification Obese Vital Signs Temperature (97.8 F-99.1 F) 97.8 F Temperature Source Temporal Pulse Rate (60-100) 56 L Pulse Location Monitor Blood Pressure (90/60-120/80) 133/75 H Blood Pressure Mean 94 Source Monitor Position Sitting Blood Pressure Location Right Arm History Since Last Visit- (Skip if this is Patient's initial visit) Have you changed medications since your No last visit? Any new allergies or adverse reactions No Had a fall/change in ADL's that may No increase risk of falls Signs or symptoms of abuse and/or No neglect since last visit Have you been in the hospital since your No last visit? Has dressing in place as prescribed Yes Has compression in place as prescribed Yes Has offloadiing in place as prescribed N/A Experienced any changes in pain level or No management Left Footwear Regular Shoe Right Footwear Regular Shoe Pain Scale: 0-10 Numeric Is Patient Pain Free? Yes - Nurse 1 - General Ulcer Measurement Start: 03/05/22 11:14 Freq: Status: Active Protocol: Activity Type Activity Date Activity User E-sign Co-sign Detail Recorded Client Recorded Date Recorded By Document 03/05/22 11:14 PANCHITO [id number] 03/05/22 11:15 PANCHITO 03/05/22 11:14 Wound Center Nurse 1 #1- R MARTINES (TRAUMA) -Current Size (cm) - Length 0.1 -Current Size (cm) - Width 0.1 -Current Size (cm) - Depth 0.1 -Total Square Cm 0.01 -Exudate Amt None Present -Wound Margin Distinct, Outline Attached -Granulation Amt None Present (0 %) -Necrosis Amt None Present (0 %) -Texture (Malou-wound Skin Appearance) Assessed, Scarring -Moisture (Malou-wound Skin Appearance) No Abnormality, Assessed -Color (Malou-wound Skin Appearance) No Abnormality, Assessed -Temperature (Malou-wound Skin No Abnormality Appearance) (Pt Warm) -Tenderness on Palpation (Malou-wound No Skin Appearance) -Ulcer Cleansing Rinsed/ Irrigated with Saline -Foul Odor after Cleansing No -Anesthetic Used 5% Lidocaine Gel WC - Nurse 2 - General Ulcer CM Notes Start: 03/05/22 11:14 Freq: Status: Active Protocol: Activity Type Activity Date Activity User E-sign Co-sign Detail Recorded Client Recorded Date Recorded By Document 03/05/22 11:49 PL [id number] 03/05/22 11:50 PL 03/05/22 11:49 Wound Center Nurse 2 -Time 11:20 -Procedure Performed No Pain Scale: 0-10 Numeric Is Patient Pain Free? Yes WC - Nurse 3 - General Ulcer D/C NN Start: 03/05/22 11:14 Freq: Status: Active Protocol: Activity Type Activity Date Activity User E-sign Co-sign Detail Recorded Client Recorded Date Recorded By Document 03/05/22 11:41 KR [id number] 03/05/22 11:41 KR 03/05/22 11:41 Wound Care Nurse 3 #1- R MARTINES (TRAUMA) -Ulcer Cleansing Rinsed/ Irrigated with Saline -Primary Dressing Applied C Hydrogel ($) -Primary Dressing Covered/Secured with Dry Gauze, Secured with Tape Pain Scale: 0-10 Numeric Is Patient Pain Free? Yes WC - Visit Discharge Discharge Condition Stable Ambulatory Status Ambulatory Transportation Private Auto Assessment/Plan Assessment/Plan (1) Wound of right leg: CODE(S): S81.801A - Unspecified open wound, right lower leg, initial encounter QUALIFIERS: Encounter type: subsequent encounter Qualified Code(s): S81.801D - Unspecified open wound, right lower leg, subsequent encounter (2) Traumatic open wound of right lower leg: CODE(S): S81.801A - Unspecified open wound, right lower leg, initial encounter QUALIFIERS: Encounter type: subsequent encounter Qualified Code(s): S81.801D - Unspecified open wound, right lower leg, subsequent encounter (3) Chronic wound of extremity: (4) 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: CODE(S): I87.039 - 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 (5) Obesity (BMI 35.0-39.9 without comorbidity): CODE(S): E66.9 - Obesity, unspecified (6) Arthritis: CODE(S): M19.90 - Unspecified osteoarthritis, unspecified site (7) Obstructive sleep apnea: CODE(S): G47.33 - Obstructive sleep apnea (adult) (pediatric) (8) CPAP (continuous positive airway pressure) dependence: CODE(S): Z99.89 - Dependence on other enabling machines and devices (9) History of diabetes mellitus: CODE(S): Z86.39 - Personal history of other endocrine, nutritional and metabolic disease (10) History of deep vein thrombosis: CODE(S): Z86.718 - Personal history of other venous thrombosis and embolism (11) GERD (gastroesophageal reflux disease): CODE(S): K21.9 - Gastro-esophageal reflux disease without esophagitis (12) Hypertension: CODE(S): I10 - Essential (primary) hypertension (13) History of hemorrhoids: CODE(S): Z87.19 - Personal history of other diseases of the digestive system (14) Varicose veins with inflammation: CODE(S): I83.10 - Varicose veins of unspecified lower extremity with inflammation (15) Degenerative disc disease: (16) Scoliosis: CODE(S): M41.9 - Scoliosis, unspecified (17) History of umbilical hernia repair: CODE(S): Z98.890 - Other specified postprocedural states; Z87.19 - Personal history of other diseases of the digestive system (18) History of arthroscopic knee surgery: CODE(S): Z98.890 - Other specified postprocedural states (19) History of shoulder surgery: CODE(S): Z98.890 - Other specified postprocedural states (20) History of gastric restrictive surgery: CODE(S): Z98.84 - Bariatric surgery status (21) History of tonsillectomy: CODE(S): Z90.89 - Acquired absence of other organs PLAN: Plan This is a 51-year-old male who presented with a traumatic open wound on his right pretibial surface. This occurred on December 23, 2021. He was evaluated in an outpatient urgent care center, and oral Keflex was prescribed, which has been completed. Due to persisting periwound erythema, swab cultures were obtained, which were positive for Staphylococcus epidermidis. According to sensitivity results, the patient was placed on doxycycline 100 mg p.o. twice daily for 8 days, which has now been completed. As of the visit today, the wound on the right pretibial surface appears to be totally healed and epithelialized. Patient has been advised to refrain from traumatizing the area. He is to continue with collagen hydrogel topically on a daily basis. To assure that the wound remains healed, he is to follow-up in 2 weeks for final reassessment and confirmation of complete healing. Patient is to continue with leg elevation and compression to the lower extremities for now. Total time: 28 minutes
--- NOTE | 2022-03-19 12:46 | PCM.WC.HP ---
History of Present Illness Date of Service: 03/19/22 Chief Complaint: Traumatic right leg wound History of Wound: This is a 51-year-old male who presented with a traumatic wound to the right pretibial surface. The wound occurred on December 23, 2021. While working on a deck, a wooden board impacted his right pretibial surface, creating a wound. Several days later, the patient was evaluated at the [facility], and was placed on a prescription for Keflex, which the patient was taking at the time of his initial evaluation. In addition, he was using antibiotic ointment topically. The patient's traumatic wound failed to heal, prompting him to seek medical attention at the [facility]. The patient has multiple pre-existing medical problems, which are listed below. He was formerly morbidly obese, weighing 360 pounds. Currently weighs about 245 pounds. Weight loss was precipitated by the performance of a gastric sleeve surgical procedure. He has 2 prior episodes of acute deep vein thrombosis in the right lower extremity, which occurred postoperatively following surgical procedures. Patient does relate swelling in his right lower extremity, which typically occurs near the end of the day. He sleeps on a flat mattress at night. 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 [facility] Medical History Alcohol use Arthritis Arthritis Back pain Back pain Chronic wound of extremity CPAP (continuous positive airway pressure) dependence CPAP (continuous positive airway pressure) dependence Degenerative disc disease Diabetes Disorder of uvula DVT (deep venous thrombosis) Gastric reflux GERD (gastroesophageal reflux disease) Hay fever Hemorrhoids History of deep vein thrombosis History of diabetes mellitus History of echocardiogram History of hemorrhoids History of steroid therapy History of stress test HTN (hypertension) Hypertension Hypertension Kidney stones Knee pain Lab test negative for COVID-19 virus Leg cramps Obesity (BMI 35.0-39.9 without comorbidity) Obstructive sleep apnea 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 Scoliosis Shoulder pain Sleep apnea Traumatic open wound of right lower leg URI (upper respiratory infection) 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 Wears glasses Wound of right leg Home Medications calcium citrate 315 mg-vitamin D3 5 mcg (200 unit) tablet (Calcium Citrate + D) 2 tab PO QHS 04/25/20 [History Last Taken Unknown] multivitamin 2 cap PO DAILY 04/25/20 [History Last Taken Unknown] amlodipine 5 mg tablet 5 mg PO DAILY 08/04/20 [History Last Taken 05/25/21 05:00] mecobalamin (vitamin B12) 1,000 mcg disintegrating tablet,sublingual 1,500 mcg sublingual DAILY 08/04/20 [History Last Taken Unknown] metoprolol succinate 25 mg tablet,extended release 24 hr 25 mg PO DAILY 08/04/20 [History Last Taken 05/25/21 05:00] dextrin 3 gram/4 gram oral powder (Clear Fiber) 3 - 4 tsp PO DAILY 01/29/21 [History Last Taken Unknown] pantoprazole 20 mg tablet,delayed release (Protonix) 40 mg PO DAILY 01/29/21 [History Last Taken Unknown] tramadol 50 mg tablet 50 mg PO BID 03/15/21 [History Last Taken Unknown] celecoxib 200 mg capsule (Celebrex) 200 mg PO DAILY 05/23/21 [History Last Taken Unknown] cholecalciferol (vitamin D3) 10 mcg (400 unit) capsule (Vitamin D3) mcg PO DAILY 01/08/22 [History Last Taken Unknown] fexofenadine 180 mg tablet 180 mg PO DAILY 01/08/22 [History Last Taken Unknown] magnesium 1 tab PO QHS 01/08/22 [History Last Taken Unknown] omega 9-oxn-szk-fish oil 1,200 mg (144 mg-216 mg) capsule (Fish Oil) 1 cap PO DAILY 01/08/22 [History Last Taken Unknown] gabapentin 100 mg capsule 100 mg PO BID 02/11/22 [History Last Taken Unknown] tadalafil 20 mg tablet 20 mg PO DAILY PRN 02/11/22 [History Last Taken Unknown] Allergy/AdvReac Type Severity Reaction Status Date / Time olmesartan medoxomil Allergy Itching Verified 03/15/22 09:07 [From Rona] Family History Other Breast cancer Surgical History Deviated septum H/O foot surgery H/O hernia repair H/O knee surgery H/O shoulder surgery History of arthroscopic knee surgery History of gastric restrictive surgery History of shoulder surgery History of surgical removal of ganglion cyst History of tonsillectomy History of tonsillectomy History of umbilical hernia repair hx of gastric sleeve Social History Smoking Status: Never smoker alcohol intake: current alcohol intake frequency: a few times a month Alcohol type: hard liquor Vital Signs Vital Signs Vital Signs: Weight Weight: 245 lb Body Mass Index (BMI) 36.1 Physical Exam Const alert, oriented x3, no apparent distress and well nourished Constitutional Narrative: The patient is obese. General Appearance: cooperative, comfortable, well kempt and well developed Orientation / Consciousness: awake, oriented to person, oriented to place and oriented to time Exam Limitations: no limitations HEENT normocephalic, head/scalp atraumatic and hearing grossly normal bilaterally Head and Scalp: normal to inspection, normocephalic and atraumatic External Ear: external ears normal Eyes PERRL and EOMs intact bilaterally General Eye: normal appearance of both eyes Resp normal respiratory effort, normal air movement, no retractions and no use of accessory muscles Effort and Inspection: able to speak in complete sentences Extremity no calf tenderness General Extremity: Negative for clubbing or cyanosis Skin Wound Narrative: The wound on the right pretibial area is completely healed and epithelialized. Neuro oriented x3, CN's II-XII intact bilaterally, moves all extremities and no focal motor deficits Sensorium / Orientation: awake, alert, oriented to person, oriented to place and oriented to time Psych Appearance: grossly normal and appropriate Attitude: calm Activity / Motor Behavior: appropriate eye contact Speech: normal speech Mood & Affect: euthymic mood Thought Process: normal thought process Thought Content: normal thought content Attention / Concentration: attention grossly intact Debridement Note Debridement Note No debridement was completed: No debridement was completed today (There are no open wounds or ulcerations.) Post-Debridement Measurements and Additional Note: Post-Debridement Measurements/Treatment [facility] - Nurse 1 - General Ulcer Assessment Start: 03/05/22 11:14 Freq: Status: Active Protocol: EVELIN Activity Type Activity Date Activity User E-sign Co-sign Detail Recorded Client Recorded Date Recorded By Document 03/05/22 11:14 PANCHITO [id number] 03/05/22 11:15 PANCHITO 03/05/22 11:14 - Today's Visit Information Type of service Follow-up Visit (Physician/CL[facility]ICAL [facility]NAGER HOME CARE ) Arrival Mode Ambulatory Patient Identification Verified (Name & Yes ) Height and Weight Body Mass Index (BMI) 36.1 BMI Classification Obese Vital Signs Temperature (97.8 F-99.1 F) 97.8 F Temperature Source Temporal Pulse Rate (60-100) 56 L Pulse Location Monitor Blood Pressure (90/60-120/80) 133/75 H Blood Pressure Mean 94 Source Monitor Position Sitting Blood Pressure Location Right Arm History Since Last Visit- (Skip if this is Patient's initial visit) Have you changed medications since your No last visit? Any new allergies or adverse reactions No Had a fall/change in ADL's that may No increase risk of falls Signs or symptoms of abuse and/or No neglect since last visit Have you been in the hospital since your No last visit? Has dressing in place as prescribed Yes Has compression in place as prescribed Yes Has offloadiing in place as prescribed N/A Experienced any changes in pain level or No management Left Footwear Regular Shoe Right Footwear Regular Shoe Pain Scale: 0-10 Numeric Is Patient Pain Free? Yes - Nurse 1 - General Ulcer Measurement Start: 03/05/22 11:14 Freq: Status: Active Protocol: Activity Type Activity Date Activity User E-sign Co-sign Detail Recorded Client Recorded Date Recorded By Document 03/05/22 11:14 PANCHITO [id number] 03/05/22 11:15 PANCHITO 03/05/22 11:14 Wound Center Nurse 1 #1- R MARTINES (TRAUMA) -Current Size (cm) - Length 0.1 -Current Size (cm) - Width 0.1 -Current Size (cm) - Depth 0.1 -Total Square Cm 0.01 -Exudate Amt None Present -Wound Margin Distinct, Outline Attached -Granulation Amt None Present (0 %) -Necrosis Amt None Present (0 %) -Texture (Malou-wound Skin Appearance) Assessed, Scarring -Moisture (Malou-wound Skin Appearance) No Abnormality, Assessed -Color (Malou-wound Skin Appearance) No Abnormality, Assessed -Temperature (Malou-wound Skin No Abnormality Appearance) (Pt Warm) -Tenderness on Palpation (Malou-wound No Skin Appearance) -Ulcer Cleansing Rinsed/ Irrigated with Saline -Foul Odor after Cleansing No -Anesthetic Used 5% Lidocaine Gel WC - Nurse 2 - General Ulcer CM Notes Start: 03/05/22 11:14 Freq: Status: Active Protocol: Activity Type Activity Date Activity User E-sign Co-sign Detail Recorded Client Recorded Date Recorded By Document 03/05/22 11:49 PL [id number] 03/05/22 11:50 PL Document 03/19/22 12:34 PL [id number] 03/19/22 12:34 PL 03/05/22 03/19/22 11:49 12:34 Wound Center Nurse 2 #1- R MARTINES (TRAUMA) -Time 11:20 -Procedure Performed No No -Wound/Ulcer Outcome Healed- Epithelialized Pain Scale: 0-10 Numeric Is Patient Pain Free? Yes Yes WC - Nurse 3 - General Ulcer D/C NN Start: 03/05/22 11:14 Freq: Status: Active Protocol: Activity Type Activity Date Activity User E-sign Co-sign Detail Recorded Client Recorded Date Recorded By Document 03/05/22 11:41 KR [id number] 03/05/22 11:41 KR 03/05/22 11:41 Wound Care Nurse 3 #1- R MARTINES (TRAUMA) -Ulcer Cleansing Rinsed/ Irrigated with Saline -Primary Dressing Applied C Hydrogel ($) -Primary Dressing Covered/Secured with Dry Gauze, Secured with Tape Pain Scale: 0-10 Numeric Is Patient Pain Free? Yes WC - Visit Discharge Discharge Condition Stable Ambulatory Status Ambulatory Transportation Private Auto Assessment/Plan Assessment/Plan (1) Wound of right leg: CODE(S): S81.801A - Unspecified open wound, right lower leg, initial encounter QUALIFIERS: Encounter type: subsequent encounter Qualified Code(s): S81.801D - Unspecified open wound, right lower leg, subsequent encounter (2) Traumatic open wound of right lower leg: CODE(S): S81.801A - Unspecified open wound, right lower leg, initial encounter QUALIFIERS: Encounter type: subsequent encounter Qualified Code(s): S81.801D - Unspecified open wound, right lower leg, subsequent encounter (3) Chronic wound of extremity: (4) 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: CODE(S): I87.039 - 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 (5) Obesity (BMI 35.0-39.9 without comorbidity): CODE(S): E66.9 - Obesity, unspecified (6) Arthritis: CODE(S): M19.90 - Unspecified osteoarthritis, unspecified site (7) Obstructive sleep apnea: CODE(S): G47.33 - Obstructive sleep apnea (adult) (pediatric) (8) CPAP (continuous positive airway pressure) dependence: CODE(S): Z99.89 - Dependence on other enabling machines and devices (9) History of diabetes mellitus: CODE(S): Z86.39 - Personal history of other endocrine, nutritional and metabolic disease (10) History of deep vein thrombosis: CODE(S): Z86.718 - Personal history of other venous thrombosis and embolism (11) GERD (gastroesophageal reflux disease): CODE(S): K21.9 - Gastro-esophageal reflux disease without esophagitis (12) Hypertension: CODE(S): I10 - Essential (primary) hypertension (13) History of hemorrhoids: CODE(S): Z87.19 - Personal history of other diseases of the digestive system (14) Varicose veins with inflammation: CODE(S): I83.10 - Varicose veins of unspecified lower extremity with inflammation (15) Degenerative disc disease: (16) Scoliosis: CODE(S): M41.9 - Scoliosis, unspecified (17) History of umbilical hernia repair: CODE(S): Z98.890 - Other specified postprocedural states; Z87.19 - Personal history of other diseases of the digestive system (18) History of arthroscopic knee surgery: CODE(S): Z98.890 - Other specified postprocedural states (19) History of shoulder surgery: CODE(S): Z98.890 - Other specified postprocedural states (20) History of gastric restrictive surgery: CODE(S): Z98.84 - Bariatric surgery status (21) History of tonsillectomy: CODE(S): Z90.89 - Acquired absence of other organs PLAN: Plan This is a 51-year-old male who presented with a traumatic open wound on his right pretibial surface. This occurred on December 23, 2021. He was evaluated in an outpatient urgent care center, and oral Keflex was prescribed, which has been completed. Due to persisting periwound erythema, swab cultures were obtained, which were positive for Staphylococcus epidermidis. According to sensitivity results, the patient was placed on doxycycline 100 mg p.o. twice daily for 8 days, which has now been completed. As of the visit today, the wound on the right pretibial surface is totally healed and epithelialized. Patient has been advised to refrain from traumatizing the area. He will be discharged, and follow-up henceforth on an as-needed basis. Total time: 16 minutes
[2022-03-19 14:05] VITALS: BP 139/77; PULSE 79; TEMP 36.1; BMI 36.1
== END 2022-03-19 16:30 | disposition home or self-care (01) ==
LOC: WC 11:00
PROVIDERS: PCP Family Medicine; Visit Provider Surgery
DX: S81.801D Unspecified open wound, right lower leg, subsequent encounter (principal); I87.039 Postthrombotic syndrome with ulcer and inflammation of unspecified lower extremity; E11.9 Type 2 diabetes mellitus without complications; G47.33 Obstructive sleep apnea (adult) (pediatric); I10 Essential (primary) hypertension; I83.90 Asymptomatic varicose veins of unspecified lower extremity; E66.9 Obesity, unspecified; K21.9 Gastro-esophageal reflux disease without esophagitis; M41.9 Scoliosis, unspecified; M19.90 Unspecified osteoarthritis, unspecified site; Z90.89 Acquired absence of other organs; Z98.84 Bariatric surgery status; Z87.19 Personal history of other diseases of the digestive system
CPT/HCPCS: 99213; G0463

== ENCOUNTER → 2022-05-30 | Outpatient (CLI) | payer OTHER, SELFPAY ==
--- NOTE | 2022-05-30 13:16 | RAD_ITS ---
STUDY: X-RAY - RIGHT KNEE REASON FOR EXAM: Male, 52 years old. Pain. TECHNIQUE: 4 view(s) of the knee. COMPARISON: Comparison is made with prior study dated 04/25/2020. FINDINGS: Normal visualized distal femur. Normal visualized proximal tibia and fibula. Normal proximal tibiofibular articulation. There is deformity of the knee joint. There is severe degenerative arthrosis of the medial femorotibial compartment with severe joint space narrowing. Normal lateral femorotibial compartment. There is moderate degenerative arthrosis of the patellofemoral articulation. The soft tissue structures are unremarkable. RAD/Knee 4 or More Views IMPRESSION: Degenerative arthrosis. Electronically Signed: Thor Garcia MD at 15:27 EST ,
--- NOTE | 2022-05-30 13:18 | RAD_ITS ---
INDICATION: pain EXAMINATION/TECHNIQUE: X-RAY - LEFT XR Knee Complete 4 Views COMPARISON: None. FINDINGS: SOFT TISSUES: No soft tissue swelling or gas. No radiopaque foreign body. BONES/JOINTS: No acute fracture or subluxation.. There is narrowing of the medial femorotibial compartment. Mild degenerative spurring at the lateral femorotibial and the patellofemoral compartments. Mild effusion.. No sclerotic or destructive changes observed. RAD/Knee 4 or More Views IMPRESSION: Degenerative changes. Electronically Signed: Vern Senior DO at 22:50 EST ,
== END | disposition home or self-care (01) ==
LOC: MTRAD 13:16
PROVIDERS: PCP Family Medicine; Referring Provider Physician Assistant; Visit Provider Physician Assistant
DX: M17.0 Bilateral primary osteoarthritis of knee (principal)
CPT/HCPCS: 73564

== ENCOUNTER → 2022-06-20 | Outpatient (CLI) | payer OTHER, SELFPAY ==
--- NOTE | 2022-06-20 07:25 | CT_ITS ---
PROCEDURE: CT RIGHT KNEE WITHOUT CONTRAST REASON FOR EXAM: Male, 52 years old. Preoperative planning for the M[employer] Robotic knee surgery. Knee pain. TECHNIQUE: Transaxial CT of the hip, knee and ankle were obtained. Coronal and sagittal reconstruction images of the knee were provided. Individualized dose optimization techniques were used for this CT. COMPARISON: None. FINDINGS: Standard protocol for the preoperative planning for the M[employer] robotic knee surgery was performed. Mild osteoarthrosis of the hip and knee. CT/Extremity Lower without Contra IMPRESSION: Preoperative M[employer] Robotic knee surgical CT evaluation with findings as described above. Electronically Signed: Julio Duran, at 10:27 EST ,
--- NOTE | 2022-06-20 07:25 | ART_ITS ---
Reason For Study: Decreased Pulses Procedure A bilateral lower extremity continuous wave Doppler with analog waveform analysis and ankle brachial indexes. Left Segmental Pressures Left brachial= 125mmHg. Left posterior tibial artery = 156mmHg. Left dorsalis pedis artery = 149mmHg. Left digit = 0.82 mmHg. The left posterior tibial artery waveforms are triphasic. The left dorsalis pedis waveforms are triphasic. Right Segmental Pressures Right brachial= 116mmHg. Right posterior tibial artery = 165mmHg. Right dorsalis pedis artery = 165mmHg. Right digit = 101 mmHg. The right posterior tibial artery waveforms are triphasic. The right dorsalis pedis waveforms are triphasic. Indices The right ankle brachial index by the posterior tibial artery is 1.32. The right ankle brachial index by the dorsalis pedis is 1.32. The right digital-brachial index is 0.81. The left ankle brachial index by the posterior tibial artery is 1.25. The left ankle brachial index by the dorsalis pedis is 1.19. The left digital-brachial index is 0.82. VL/Ankle Brachial Index Interpretation Summary Right PATTI 1.32, normal. TBI and Doppler/PVR waveforms of the right ankle normal at rest. Left PATTI 1.25, normal. TBI and Doppler/PVR waveforms of the left ankle normal a t rest. Ordering Physician: Jason Fritz Referring Physician: Renzo Beatty Performed By: Garfield Velasco, RVT
== END | disposition home or self-care (01) ==
PROVIDERS: PCP Family Medicine; Visit Provider Orthopaedic Surgery
DX: M17.11 Unilateral primary osteoarthritis, right knee (principal); R09.89 Other specified symptoms and signs involving the circulatory and respiratory systems
CPT/HCPCS: 73700; 93922

== ENCOUNTER → 2022-07-15 | Outpatient (CLI) | payer OTHER, SELFPAY ==
[2022-07-15 15:51] LABS: Absolute Lymphocyte Count 1.81 X10^3/uL (0.83-4.51); Absolute Neutrophil Count 5.4 X10^3/uL (2.0-7.7); Basophil# 0.03 X10^3/uL; Basophil% 0.4 % (0-1); Eosinophil# 0.07 X10^3/uL; Eosinophils% 0.9 % (0-5); Hematocrit 49.3 % (40-54); Lymphocyte # 1.81 X10^3/ul (0.83-4.51); Lymphocyte % 22.1 % (19-41); Mean Corp Hgb Conc 32.5 g/dL (32-36); Mean Corpuscular Volume 92.3 fL (80-94); Mean Platelet Vol. 10.9 fl (6.2-12.0); Monocyte# 0.81 X10^3/uL; Monocyte% 9.9 % (0-10); NRBC Flagged by Analyzer 0 % (0-5); Neutrophil # 5.43 X10^3/uL (2.7-7.7); Neutrophil % 66.2 % (47-70); Platelet Count 232 K/mm3 (150-450); RBC Distribution Width CV 13.3 % (11.6-14.6); Red Blood Count 5.34 M/mm3 (4.6-6.2); White Blood Count 8.2 K/mm3 (4.4-11.0)
[2022-07-15 16:14] LABS: Anion Gap 3 (5-15); BUN 23 mg/dL (7-18); BUN/Creat Ratio 20.9 RATIO (10-20); Chloride 110 mmol/L (98-107); EST Glomerular Filtration Rate 74 mL/min (>60); Est Glom Filt Rate - Afr Amer 90 mL/min (>60); Glucose 71 mg/dL (74-106); Sodium Level 145 mmol/L (136-145)
== END | disposition home or self-care (01) ==
LOC: BFHLAB 13:56
PROVIDERS: PCP Family Medicine; Referring Provider Family Medicine; Visit Provider Family Medicine
DX: Z00.00 Encounter for general adult medical examination without abnormal findings (principal); Z12.5 Encounter for screening for malignant neoplasm of prostate; R53.83 Other fatigue
CPT/HCPCS: 36415; 80048; 85025

== ENCOUNTER 2022-08-05 10:21 | Inpatient (IN) | payer OTHER, SELFPAY ==
[2022-07-31 15:22] LABS: International Normalized Ratio 1.1; Partial Thromboplast Time 26.5 Seconds (24.1-36.2); Prothrombin Time (Protime)PT. 13.7 SECONDS (11.7-14.9)
[2022-07-31 15:28] LABS: Hemoglobin A1c 5.3 % (3.8-5.6)
[2022-07-31 15:48] LABS: Magnesium 2.2 mg/dL (1.6-2.6)
[2022-08-02 15:25] LABS: Fructosamine 197 umol/L (0-285)
[2022-08-05] VITALS (14 sets, daily range): BP systolic 97–133; BP diastolic 50–90; PULSE 44–79; RESP 14–18; TEMP 36.5–37.3; O2SAT 92–100; BMI 37.8
--- NOTE | 2022-08-05 | KNEE_PTH ---
PATIENT: MIRIAM BURTON LOC: MS3 U#:[id number] AGE/SX: 52/M ROOM: [facility] RE08/05/[address]: Dr. Jason Fritz DO : 1970 BED: 1 DIS: 08/08/2022 SPEC #: [id number] RECD: 08/05/22 16:10 STATUS: MARYA JULEE #: [id number] NOE: 08/05/22 00:[address]: Jason Fritz DEPT: SURGICAL PATHOLOGY RECD BY: Ghulam Patino ENTERED: 08/06/22 10:02 SP TYPE: TOTAL KNEE OTHR DR: Dr. Renzo Beatty, DO Tissues: Knee, NOS Procedures: Decalcification bone/plaque Surgery Specimen Level IV HEADER OPERATION: ERAS, right total knee replacement robotic arm assist PRE-OP DIAGNOSIS: Osteoarthritis of right knee, left knee DJD, decreased pedal pulses TISSUE SUBMITTED: Right knee bone and tissue MICROSCOPIC DIAGNOSIS Bone and soft tissue, right knee, total knee replacement/resection: Pieces of bone with degenerative osteoarthritic changes. Fibroadipose tissue, fibroconnective tissue, cartilaginous tissue, and reactive synovial tissue. SUDHIR:ashley 08/09/2022 MICROSCOPIC DESCRIPTION Slides are reviewed. GROSS DESCRIPTION Received is one container designated bone and soft tissue right knee. The specimen consists of multiple fragments of larios-yellow bone measuring in aggregate 12.0 x 11.0 x 3.0 cm. Also in the specimen container are multiple fragments of cartilaginous tissue measuring in aggregate 6.0 x 3.0 x 1.0 cm. A number of bony fragments contain articular surfaces consistent with tibial plateau and femoral condyle and displaying prominent osteophyte formation, eburnation and bone erosion. Advanced Developer sections are submitted in two cassettes as follows: 1 - soft tissue, 2 - bone after decalcification. / SUDHIR:ashley 08/06/2022 TC:5 CPT: 79535, 85434
[2022-08-05] MEDS: Acetaminophen 500 MG Tablet 1000 MG PO ×2 (11:09→21:57)
[2022-08-05] MEDS: Gabapentin 600 MG Tablet PO (11:09)
[2022-08-05] MEDS: Lactated Ringers 1,000 ML 15 ML IV (11:09)
[2022-08-05] MEDS: Celecoxib 200 MG Capsule 400 MG PO (11:10)
[2022-08-05] MEDS: Scopolamine 1mg/72hr Patch 1 PATCH TD (11:10)
[2022-08-05] MEDS: Magnesium 1 GM over 15 mins IV (11:11)
[2022-08-05 11:45] LABS: Bedside Glucose 91 mg/dL (74-106)
--- NOTE | 2022-08-05 12:27 | PCM.HP.BLA ---
History and Physical Date of Admission: 08/05/22 [facility] [address] [place] [address] OFFICE VISIT Date of Service:? 06/03/22 MR#: [id number] Acct: [id number] Name:MIRIAM MILIAN Rep #: [id number] : 1970 ? ? Provider: Dr. Jason Fritz, DO Age/Sex:? 52/M ? ? [place] [facility] [email or web address] Status: Signed Intake Vital Signs ? 01/08/2213:12 06/03/2313:28 Height 5 ft 9 in 5 ft 9 in Weight: ? 264 lb BMI ? 38.9 Intake Visit Reasons:?BILATERAL KNEES Chief Complaint: bilateral knee pain Accompanied by: Self Is patient in pain?: Yes Pain scale (1-10): 2 Allergies olmesartan medoxomil [From Benicar] Allergy (Verified 04/11/22 11:59) Itching Medications calcium citrate 315 mg-vitamin D3 5 mcg (200 unit) tablet (Calcium Citrate + D) 2 tab PO QHS 04/25/20 [History Confirmed 06/03/22] multivitamin 2 cap PO DAILY 04/25/20 [History Confirmed 06/03/22] amlodipine 5 mg tablet 5 mg PO DAILY 08/04/20 [History Confirmed 06/03/22] mecobalamin (vitamin B12) 1,000 mcg disintegrating tablet,sublingual 1,500 mcg sublingual DAILY 08/04/20 [History Confirmed 06/03/22] metoprolol succinate 25 mg tablet,extended release 24 hr 25 mg PO DAILY 08/04/20 [History Confirmed 06/03/22] pantoprazole 20 mg tablet,delayed release (Protonix) 40 mg PO DAILY 01/29/21 [History Confirmed 06/03/22] tramadol 50 mg tablet 50 mg PO BID 03/15/21 [History Confirmed 06/03/22] celecoxib 200 mg capsule (Celebrex) 200 mg PO DAILY 05/23/21 [History Confirmed 06/03/22] cholecalciferol (vitamin D3) 10 mcg (400 unit) capsule (Vitamin D3) mcg PO DAILY 01/08/22 [History Confirmed 06/03/22] fexofenadine 180 mg tablet 180 mg PO DAILY 01/08/22 [History Confirmed 06/03/22] magnesium 1 tab PO QHS 01/08/22 [History Confirmed 06/03/22] gabapentin 100 mg capsule 100 mg PO BID 02/11/22 [History Confirmed 06/03/22] tadalafil 20 mg tablet 20 mg PO DAILY PRN 02/11/22 [History Confirmed 06/03/22] PFSH Medical History?(Updated 06/03/22 @ 15:[address] Jason Fritz, DO) Acute bronchitis, unspecified Alcohol use Arthritis Arthritis Back pain Back pain Chronic wound of extremity Contact with and (suspected) exposure to other viral communicable diseases CPAP (continuous positive airway pressure) dependence CPAP (continuous positive airway pressure) dependence Degenerative disc disease Diabetes Disorder of uvula DVT (deep venous thrombosis) Gastric reflux GERD (gastroesophageal reflux disease) Hay fever Hemorrhoids History of deep vein thrombosis History of diabetes mellitus History of echocardiogram History of hemorrhoids History of steroid therapy History of stress test HTN (hypertension) Hypertension Hypertension Kidney stones Knee pain Lab test negative for COVID-19 virus Leg cramps Obesity (BMI 35.0-39.9 without comorbidity) Obstructive sleep apnea 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 Deviated septum H/O foot surgery H/O hernia repair H/O knee surgery H/O shoulder surgery History of arthroscopic knee surgery History of gastric restrictive surgery History of shoulder surgery History of surgical removal of ganglion cyst History of tonsillectomy History of tonsillectomy History of umbilical hernia repair hx of gastric sleeve Family History? Other Breast cancer Social History?(Updated 06/03/22 @ 14:35 by Eva Mora) Smoking Status:? Current every day smoker tobacco type: cigars alcohol intake:? current alcohol intake frequency: holidays/special occasions only HPI BILATERAL KNEES Details: Parts of this documentation were recorded by a scribe, this documentation accurately reflects the service provided and the decisions made by me, Dr. Jason Fritz DO 06/03/2228. MIRIAM BURTON is a 52 year old M here today for BL knee pain that he has been having for a couple years. He states that one knee is not worse than the other. He had BL knee Euflexxa injections in 02/2022 which was helpful maybe until 04/2022 then his pain returned. His last steroid injection was in the left knee and this was done in 06/2021. His last steroid injection in the right knee was in 2020. He has tried and failed PT. He has right and left anterior medial knee pain. He does use knee braces at times which are somewhat helpful. Increased pain with standing up, stairs, prolonged standing. He states that even laying in bed he does have pain. Denies any family hx of RA or lupus or inflammatory conditions. Ortho Exam General General: Yes no acute distress Neurologic: Yes oriented x3 Psychologic: Yes reasonable and appropriate Right Knee Skin/Wound: No erythema, No ecchymosis and No swelling Homans Sign: No Knee ROM: Yes ROM-Extension -20 to 0 and No ROM-Flexion 0-140 (113) Examination: Yes Med jt line tenderness, Yes Lat jt line tenderness and Yes Crepitus Stability: NML: Anterior Drawer, NML: Posterior Drawer, NML: Varus 0 and NML: Varus 30 and 1+: Valgus 0 and 1+: Valgus 30 Patella Translation: 1 Patella Grind: Yes KNEE: no joint effusion patellar grind causes pain and crepitation 4mm gapping with valgus stress intact sensation throughout lower extremity scar over anterior huynh from slow healed wound from last year did require wound care purplish discoloration to foot and varicose veins brisk capillary refill 1/4 pulse posterior tibial foot cool to touch faint dorsalis pedis Left Knee Skin/Wound: Yes CDI, No ecchymosis, No erythema and No swelling Knee ROM: Yes ROM-Extension -20 to 0 and No ROM-Flexion 0-140 (118) Examination: Yes med jt line tenderness and Yes Lat jt line tenderness Stability: NML: Anterior Drawer, NML: Posterior Drawer, NML: Varus 0 and NML: Varus 30 and 1+: Valgus 0 and 1+: Valgus 30 Patella Translation: 1 Patella Grind: Yes KNEE: no joint effusion 3mm medial gapping valgus stress intact sensation to light touch foot cool to touch faint dorsalis pedis on left 1/4 pulse posterior tibial foot cool to touch faint dorsalis pedis Head: Normocephalic Atraumatic Chest: symmetrical rise, non-labored breathing, no audible wheeze Abdomen: no guarding, non-rigid Supplemental Info 05/30/2022 x-ray right knee: Advanced knee arthrosis [id number] medial compartment there is spurring noted in the lateral compartment and patellofemoral joint with subchondral cyst of the patella, varus deformity 05/30/2022 x-ray left knee: [id number] medial compartment varus deformity moderate spurring patellofemoral compartment mild lateral Coding Level of Care Code Off vis,est,level 3 Diagnoses Osteoarthritis of right knee? M17.11 Left knee DJD? M17.12 Decreased pedal pulses? R09.89 Assessment and Plan Assessment and Plan (1) Osteoarthritis of right knee: ?Status:?Acute (2) Left knee DJD: ?Status:?Acute (3) Decreased pedal pulses: ?Status:?Acute Plan Reviewed x-rays of patient's BL knees. Personally reviewed x-rays. There is no obvious fracture, dislocation, or lucency noted. Patient educated that he does have advanced arthritis of the BL knees. Since he has tried and failed conservative care such as steroid injection, bracing, PT, viscosupplementation his next treatment option is to have a TKA.?Risks, benefits and alternatives of surgery reviewed including but not limited to bleeding, infection, nerve, artery and/or tissue damage, fracture, VTE, mechanical feel of the knee, continued pain, stiffness and expected post-operative course. He is at an increased risk of developing a blood clot with his hx of blood clots in the past.?Recommended having?ankle brachial index?testing done prior to TKA to check his blood flow prior to surgery d/t his weak pulses and skin discoloration in bilateral feet.? he does have 10 steps to get into his house as he is split-level therefore I am requesting an admission for this procedure as he may require rehab before returning home and we would not be able to set him up with rehab having this scheduled as a same-day surgery.? educated on the IOVERA treatment offered and he wishes to proceed with this if it is covered by insurance. Reviewed the pre-operative plans with the patient. Risks and benefits of the procedure were fully explained, including but not limited to infection, neurovascular injury, continued pain, arthritis, stiffness, need for further surgery, re-injury, DVT, PE, general risks of anesthesia, and loss of limb or life. The patient understands all the risks and does wish to proceed with written consent for right total knee arthroplasty. Recommended no plasma donations 4 weeks preoperatively. Follow up for iovera treatment then 2 weeks post op or sooner if pain, swelling, numbness or associated symptoms, or concerns develop.? All questions answered. Patient in agreement of plan. Tentative surgery date 07/16/2022 Plan Details Goals & Barriers: Goals Decrease pain Decrease spasm Decrease inflammation Target Due Date 01/08/22 Barriers DDD Anterolisthesis L5/S1 Dextroscoliosis 06/03/22 1522 <Electronically signed by Jason Fritz DO> Date Jason Fritz DO I have examined the patient and the H&P has been reviewed. There are no clinical changes since date of exam.
[2022-08-05] MEDS: Cefazolin 2 GM in 0.9% Normal Saline 100 ML IV (13:22)
[2022-08-05] MEDS: TXA 1000mg in NS100 100ml (IVPB at Incision) 660 MG IV (13:34)
[2022-08-05] MEDS: dexAMETHasone 10 MG/ML Vial IV (13:44)
[2022-08-05] MEDS: Epinephrine (1 mg/ml) 1 MG/ML VIAL (14:50)
[2022-08-05] MEDS: Bupivacaine Mpf 0.5% 30 ML VIAL (14:50)
[2022-08-05] MEDS: 0.9% Normal Saline (Pres. free 10 ML Vial (14:50)
[2022-08-05] MEDS: TXA 1000mg in NS100 100ml (IVPB at Closure) 660 MG IV (15:18)
--- NOTE | 2022-08-05 15:50 | OP.PCM_ITS ---
Operative Report Date of Procedure: 08/05/22 Preoperative diagnosis: Right knee DJD Postoperative diagnosis: Same Procedure: Right total knee arthroplasty CT guided Robotic Assisted Implant: [place] triathlon press fit, femoral component size 4, tibial baseplate size 5, asymmetric patella size 35, polyethylene X3 size 9 CS Anesthesia: Spinal with adductor canal block Tourniquet time: 12 minutes at 300 mmHg Complications: None Condition: Stable to PACU Estimated blood loss: 200 cc Indication for procedure: This is a 52-year-old male with long standing degenerative joint disease of the knee who has failed conservative treatment and wished to proceed with elective total knee arthroplasty. Risk benefits and alternatives were reviewed including; risk of bleeding, infection, nerve artery and tissue damage, continued pain, postoperative stiffness, venous thromboembolism, need for postoperative rehabilitation, mechanical feel to the knee, and expected postoperative course. The pre- operative CT and templating was performed with component sizing. Procedure: The patient was met in the preoperative holding area. The operative extremity was identified by both patient and physician and was marked. Patient was met by anesthesia. An adductor canal block was placed by anesthesia postoperatively the patient was brought back to the operating room on a wheeled cart and transferred to the operating table in the supine position. Anesthesia was started. A well-padded tourniquet was placed on the operative extremity. The patient was prepped and draped in the usual sterile fashion. A timeout was called to ensure the proper patient procedure and extremity were being contemplated. An esmarch was used to exsanguinate the extremity. The tourniquet was inflated. A 10 blade scalpel was used to make a midline incision down through the skin and subcutaneous tissue. Skin retractors placed. Bovie and Aquamantis were used to perform meticulous hemostasis. full-thickness flaps were elevated medial and lateral along the joint capsule. A deep blade scalpel was used to perform a medial parapatellar arthrotomy. The knee was brought to full extension. A bovie was used to release the soft tissues off the most proximal aspect of the medial tibial plateau, a three-quarter inch curved osteotome was also used in this process. The infrapatellar fat pad was excised. The suprapatellar fat pad was excised partially anteriorolateraly and portion the anterioromedial pad was elevated from the femur. At this point our intra- articular femoral array was placed at a 45 degree angle proximal and posterior to the medial epicondyle. femoral checkpoint was placed at this time. Our tibial array was placed greater than 1 hands breath below the incision at a 20 degree angle stab incisions were made with a 15 blade scalpel and pins were placed and attached to the tibial array , tibial checkpoint was placed in the proximal tibial metaphysis. Tourniquet was let down. At this point registration holloway were taken throughout the knee . Once the knee was registered we then tensioned the medial and lateral ligaments in extension and 90 degrees of flexion. We then used these numbers to adjust our components within parameters to balance the knee in both flexion and extension once this was done on our monitor we then proceeded with using the robotic arm to make our tibial plateau cut, anterior and posterior chamfer and distal femur cuts. we removed the cut fragments with the use of a bovie and Shanell, we did use a lamina it infrastructure specialist to insure we visualized and removed all posterior osteophytes and at this time also used the Aquamantis on the posterior joint capsule. we then trialed and achieved the desired plan with a well-balanced knee. we used the green probe to lily the corresponding tibial rotation based on our CT template. Lug holes were drilled in the femur the tibia preparation was completed with the appropriate sized base plate pinned based on previous rotation lily. An appropriate sized fin punch was used on the tibia and 4 corner drill was used for the press fit component and the patella was prepared by first using a caliper to ensure sufficient bone stock and a patellar reamer to remove the desired amount of bone. lug holes drilled for an asymmetric poly. We then brought the knee through range of motion with excellent patellar tracking. We thoroughly irrigated the knee. Trial components were removed a posterior capsular injection was preformed with our standard cocktail. In a ddition the aqua Mantis was also used to aid in hemostasis. Betadine rinse was allowed to sit and washed out completely. Components were press-fit into place. Aricept rinse was then used followed by several more liters of irrigation after it was allowed to sit. The joint capsule was closed with #1 Ethibond [id number] followed by Vicryl in the subcutaneous tissues with dalton in the skin. Arrays and checkpoints were removed prior to closure all counts were correct stab incisions were closed with a staple standard dressing in the form of Mepilex AG for the main incision and a small Mepilex over the pin holes. Thigh-high SANA hose applied over top of dressing. Patient tolerated the procedure well and was directed to PACU in stable condition . There were no intraoperative complications.
--- NOTE | 2022-08-05 16:11 | RAD_ITS ---
INDICATION: post op -- AP and Lateral xray of operative knee in PACU EXAMINATION/TECHNIQUE: X-RAY - RIGHT XR Knee 1 or 2 Views 2 VIEWS COMPARISON: 05/30/2022 FINDINGS: SOFT TISSUES: Mild soft tissue swelling and gas. No unexpected radiopaque foreign body. BONES/JOINTS: No acute fracture or subluxation. Total knee arthroplasty and patellar resurfacing in anatomic alignment. No sclerotic or destructive changes observed. RAD/Knee 1 or 2 Views IMPRESSION: Expected postoperative appearance of right TKA. Electronically Signed: Gonsalo Hopper MD at 17:17 EDT ,
[2022-08-05] MEDS: Ketorolac 30 MG/ML Syringe IV (16:35)
[2022-08-05] MEDS: Lactated Ringers 1,000 ML 125 ML IV ×3 (17:22→18:56)
[2022-08-05] MEDS: Cefazolin 1 GM/50 ML BAG IV (18:51)
[2022-08-05] MEDS: Senna/Docusate Sodium 1 Tablet 2 TABLET PO (21:57)
[2022-08-05] MEDS: Calcium Carb/Vitamin D 1 TABLET Tablet 2 TABLET PO (21:57)
[2022-08-05] MEDS: Gabapentin 100 MG Capsule PO (21:58)
[2022-08-05] MEDS: oxyCODONE 5 MG Tablet PO (22:16)
[2022-08-06 02:30] VITALS: BP 121/75; PULSE 95; RESP 15; TEMP 36.9; O2SAT 96
[2022-08-06] MEDS: oxyCODONE 5 MG Tablet PO ×5 (04:17→20:53)
[2022-08-06 06:13] LABS: Hematocrit 40.7 % (40-54); Hemoglobin 13.4 g/dL (13.0-16.5); Mean Corp Hgb Conc 32.9 g/dL (32-36); Mean Corpuscular Hgb 30.2 pg (27.0-32.0); Mean Corpuscular Volume 91.9 fL (80-94); Mean Platelet Vol. 10.6 fl (6.2-12.0); Platelet Count 211 K/mm3 (150-450); RBC Distribution Width CV 13.3 % (11.6-14.6); Red Blood Count 4.43 M/mm3 (4.6-6.2); White Blood Count 11.9 K/mm3 (4.4-11.0)
[2022-08-06] MEDS: Acetaminophen 500 MG Tablet 1000 MG PO ×3 (06:29→21:04)
[2022-08-06] MEDS: APIXABAN 2.5 MG TABLET (WCH) PO ×2 (06:29→21:04)
[2022-08-06] MEDS: Ketorolac 30 MG/ML Syringe IV ×2 (06:29)
[2022-08-06] MEDS: 0.9% Saline Lock 10 ML Syringe IV ×2 (06:31)
[2022-08-06 06:38] LABS: Anion Gap 0 (5-15); BUN 15 mg/dL (7-18); BUN/Creat Ratio 14.6 RATIO (10-20); Calcium,Total 9.1 mg/dL (8.5-10.1); Chloride 109 mmol/L (98-107); Creatinine, Serum 1.03 mg/dL (0.70-1.30); EST Glomerular Filtration Rate 80 mL/min (>60); Est Glom Filt Rate - Afr Amer 97 mL/min (>60); Estimated Creatinine Clearance 79.32 ml/min; Glucose 118 mg/dL (74-106); Potassium 4.5 mmol/L (3.5-5.1); Sodium Level 138 mmol/L (136-145)
[2022-08-06 06:45] VITALS: BP 138/78; PULSE 94; RESP 16; TEMP 36.6; O2SAT 98
[2022-08-06] MEDS: Cefazolin 1 GM/50 ML BAG IV ×2 (07:51)
[2022-08-06 08:00] VITALS: BP 131/82; PULSE 55; RESP 18; TEMP 37; O2SAT 93
[2022-08-06 09:21] VITALS: PULSE 70
[2022-08-06] MEDS: Gabapentin 100 MG Capsule PO ×2 (09:21→21:04)
[2022-08-06] MEDS: amLODIPine 5 MG Tablet PO (09:21)
[2022-08-06] MEDS: Metoprolol(XL)Succ 25 MG Tablet PO (09:21)
[2022-08-06] MEDS: Senna/Docusate Sodium 1 Tablet 2 TABLET PO ×2 (09:21→21:04)
[2022-08-06] MEDS: Pantoprazole Sodium 40 MG Tablet PO (09:21)
--- NOTE | 2022-08-06 10:03 | CASEMGMT ---
GEO ADAMS Assessment: Face to Face with pt for initial transition planning/care coordination assessment. RN ANGIE introduced self and role at [facility], pt voices understanding and consents to assessment. Pt is A/O x4 and answers all questions appropriately at this time. Pt sitting up in chair in no distress. Care providers, pharmacy, and demographics verified/updated. Admitting Dx: R total knee with kizzy PCP:Jaci Specialists:sami Fritz; shaji Johnston Preferred Pharmacy: [facility] Retail Insurance: [employer] Prescription Benefit: yes LNOK: Irene Uribe, Living Arrangements: Pt lives with and brother and niece in a split level home with 13 steps to enter, 11 have a rail. Pt reports he is typically I in ADL's and denies concerns at home. Transportation: Pt drives self and denies concerns with transportation. Pt dtr will provide transportation to first outpt therapy session. Pt states he is unsure who will drive after. He is aware that [facility] van can provide transportation if needed as well and to let [facility] know after the evaluation and they will coordinate this. He verbalizes understanding. DME/HHC/SNF: Pt has a 4 prong cane, CPAP and FWW at home. Pt denies hx of HHC or SNF stays. Pt states no concerns with going home at time of dc. He has outpt therapy set up for Friday at 1pm at [facility]. Pt states no further concerns/needs. CM to follow. Advised pt to ask CM if any further question/concerns/needs arise, voices understanding. Pt Goal: Home with outpt therapy set up Plan: Home with outpt therapy set up
--- NOTE | 2022-08-06 12:47 | PCM.PN.ORT ---
Subjective Subjective Patient evaluated today at bedside. At this time patient states that he feels he is doing pretty good stating that he still has quite a bit of pain in the knee. Yesterday postoperatively he states he was having pretty extreme pains which she feels got better after the block. Again, this is much improved today although still pretty moderate in nature. He is able to eat though and has been drinking well today. He was able to get some sleep last evening. He has been taking his medications for pain as directed without any side effects or issues at this point. He has been using the ice machine regularly. He has gotten up to use the restroom as well as for physical therapy. Objective Data Objective Data Vital Signs: Vital Signs Temp Pulse Resp BP Pulse Ox O2 Del Method O2 Flow Rate 98.6 F 70 18 131/82 H 93 Room Air 2 08/06/22 08:00 08/06/22 09:21 08/06/22 08:00 08/06/22 08:00 08/06/22 08:00 08/06/22 08:00 08/05/22 18:30 Oxygen Flow Rate (L/min) 2 Oxygen Delivery Method Room Air Weight: 255 lb 11.779 oz Body Mass Index (BMI) 37.8 Intake & Output: Intake and Output for Last 24 Hours 08/04/22 08/05/22 08/06/22 23:59 23:59 23:59 Intake Total 667.42 / 1300.75 2435.25 / 2435.25 Balance 667.42 / 1300.75 2435.25 / 2435.25 Lab / Micro Data Result Diagrams: 08/06/22 05:45 08/06/22 05:45 Labs: Laboratory Results - last 24 hr 08/06/22 05:45: WBC 11.9 H, RBC 4.43 L, Hgb 13.4, Hct 40.7, MCV 91.9, MCH 30.2, MCHC 32.9, RDW Std Deviation 45.0 H, RDW Coeff of Cristian 13.3, Plt Count 211, MPV 10.6 08/06/22 05:45: Sodium 138, Potassium 4.5, Chloride 109 H, Carbon Dioxide 29.0, Anion Gap 0 L, BUN 15, Creatinine 1.03, Estim Creat Clear Calc 79.32, Est GFR (MDRD) Af Amer 97, Est GFR (MDRD) Non-Af 80, BUN/Creatinine Ratio 14.6, Glucose 118 H, Calcium 9.1 Micro: Microbiology 07/31/22 13:50 Swab (Method) Nasal Screen MRSA/MSSA - Final Radiography Diagnostic Testing: Radiology Impression Knee X-Ray 08/05/22 16:11 IMPRESSION: Expected postoperative appearance of right TKA. Electronically Signed: Gonsalo Hopper MD at 17:17 EDT , Physical Exam Const alert, oriented x3, no apparent distress and well nourished Constitutional Narrative: Patient is sitting up in bed and is alert and is conversing without any issues. No signs of any confusion. Very appropriate affect and response. General Appearance: cooperative and well developed Resp normal respiratory effort Effort and Inspection: able to speak in complete sentences; Negative for tachypneic or respiratory distress Extremity no calf tenderness Extremity Narrative: Soft compartments throughout. No calf tenderness. Negative homans. 2+ palpable pedal pulses General Extremity: edema Skin Wound Narrative: occlussive dressing intact. No evident saturation of the larger Mepilex dressing. There is some minor discharge noted on the OpSite where the tibial arrays placed. No surrounding erythema, warmth, or other acute changes of either incision site. Neuro moves all extremities and no sensory deficits noted Neuro Narrative: Intact motor function of the knee/ankle/foot/toes. Intact sensation to light touch Psych mental status grossly normal Attitude: No agitated Mood & Affect: Negative for depressed or anxious Thought Content: No delusion(s) and No hallucination(s) Memory / Cognition: No cognition impaired Assessment & Plan Assessment/Plan (1) Status post total right knee replacement: PLAN: Patient seen today 1 day post-op right total knee arthroplasty. At this time patient appears to be doing very well without any major concerns or complaints. Patient was having moderate to sever pains directly post op at the same time has calmed significantly. Postoperatively he states that he has received morphine which did not touch his pain. He has been taking 10 mg of oxycodone states though that he did have some Dilaudid he thinks. He still has moderate pain at the same time has no signs of acute distress or discomfort noted during today's visit. He is alert and pleasantly conversive today. examination today shows occlussive dressing intact without signs of acute inflammation or infection. Compartments are soft with no signs of DVT or compartment syndrome. At this time we discussed going home today versus staying overnight. With the pain that he was having yesterday he states that he probably feels safer staying the night in case he would need something in the wee hours of the evening or director security risk management. Patient is to continue with the [employer] ice machine while resting in the chair or the bed. He can continue with his SCDs. Patient is to keep the occlusive dressing intact for 72 hours before removing. He should monitor notify nursing of any calf pains, calf tightness/firmness or any other firmness in the lower extremity. He continue the pain medication regimen that he has been doing thus far. We will try to stick with 5 to 10 mg of oxycodone every 4-6 hours however could go up to 15 mg for severe pains. We will consider Dilaudid for any breakthrough pains if needed. And continue with p.o. intake as tolerated. Definitely want him continuing with physical therapy and Occupational Therapy while he is still here. Notify our office with any questions or concerns.
--- NOTE | 2022-08-06 13:57 | CHAPLAIN ---
Type of Pastoral Visit _x__ Initial Visit ___ Follow-up Visit ___ On-call Visit ___ General Patient Visit ___ Spiritual Assessment ___ Family Conference ___ Bereavement ___ Rapid Response ___ Code Blue ___ Other (describe below) Pastoral Care Referral From _x__ Patient ___ Family ___ Nurse ___ Physician ___ Shaft Sinker ___ Level Vial Inspector ___ Other (describe below) Sacrament/Intervention _x__ Active listening ___ Anointing ___ Evangelical ___ Bereavement ___ Communion ___ Kylie exploration ___ ___ Life review ___ Prayer ___ Reconciliation ___ Sacrament of Sick ___ Supportive presence ___ Wedding ___ Other (describe below) Pastoral Comments patient reports that he is doing fine and has no needs; casual conversation and offer of support as needed
[2022-08-06 15:00] VITALS: BP 137/62; PULSE 63; RESP 18; TEMP 36.8; O2SAT 95
[2022-08-06 20:47] VITALS: BP 108/96; PULSE 62; RESP 18; TEMP 36.4; O2SAT 100
[2022-08-06] MEDS: Calcium Carb/Vitamin D 1 TABLET Tablet 2 TABLET PO (21:04)
[2022-08-07] MEDS: oxyCODONE 5 MG Tablet 10 MG PO (00:01)
[2022-08-07 02:53] VITALS: BP 141/81; PULSE 55; RESP 18; TEMP 36.6; O2SAT 96
[2022-08-07] MEDS: oxyCODONE 5 MG Tablet PO (04:16)
[2022-08-07] MEDS: Acetaminophen 500 MG Tablet 1000 MG PO ×3 (06:35→21:02)
[2022-08-07 06:52] LABS: Hematocrit 37.6 % (40-54); Hemoglobin 12.5 g/dL (13.0-16.5); Mean Corp Hgb Conc 33.2 g/dL (32-36); Mean Corpuscular Hgb 30.4 pg (27.0-32.0); Mean Corpuscular Volume 91.5 fL (80-94); Mean Platelet Vol. 10.9 fl (6.2-12.0); Platelet Count 172 K/mm3 (150-450); RBC Distribution Width CV 13.8 % (11.6-14.6); Red Blood Count 4.11 M/mm3 (4.6-6.2); White Blood Count 7.6 K/mm3 (4.4-11.0)
[2022-08-07 07:21] VITALS: O2SAT 96
--- NOTE | 2022-08-07 07:26 | PCM.PN.ORT ---
Subjective Subjective Seen and examined. About 5 hours of interrupted sleep. Complain of pain right knee. Was able to do stairs with physical therapy yesterday. Does not feel his pain is adequately controlled. Denies any fevers chills nausea vomit shortness of breath chest pain or dizziness. Objective Data Objective Data Vital Signs: Vital Signs Temp Pulse Resp BP Pulse Ox O2 Del Method O2 Flow Rate 97.8 F 55 L 18 141/81 H 96 Room Air 2 08/07/22 02:53 08/07/22 02:53 08/07/22 02:53 08/07/22 02:53 08/07/22 07:21 08/07/22 07:21 08/05/22 18:30 Oxygen Flow Rate (L/min) 2 Oxygen Delivery Method Room Air Weight: 255 lb 11.779 oz Body Mass Index (BMI) 37.8 Intake & Output: Intake and Output for Last 24 Hours 08/05/22 08/06/22 08/07/22 23:59 23:59 23:59 Intake Total 667.42 / 1300.75 2435.25 / 2435.25 Balance 667.42 / 1300.75 2435.25 / 2435.25 Lab / Micro Data Result Diagrams: 08/07/22 06:10 08/06/22 05:45 Labs: Laboratory Results - last 24 hr 08/07/22 06:10: WBC 7.6, RBC 4.11 L, Hgb 12.5 L, Hct 37.6 L, MCV 91.5, MCH 30.4, MCHC 33.2, RDW Std Deviation 46.0 H, RDW Coeff of Cristian 13.8, Plt Count 172, MPV 10.9 Micro: Microbiology 07/31/22 13:50 Swab (Method) Nasal Screen MRSA/MSSA - Final Physical Exam Const alert, oriented x3 and no apparent distress Extremity Extremity Narrative: Dressing clean dry intact compartment soft neurovascular intact EHL tibialis anterior gastrocsoleus intact sensation light touch palpable pedal pulses Assessment & Plan Assessment/Plan (1) S/P total knee arthroplasty: PLAN: Plan Postop day #1 right total knee arthroplasty Will increase oxycodone to 15 mg every 4 hours to control pain more adequately Continue DVT prophylaxis SCDs SANA hose Eliquis 2.5 mg twice daily PT OT weightbearing as tolerated Patient be discharged home if his pain is better controlled and tolerates physical therapy on the higher dose of oxycodone and follow-up in the office 2 weeks
--- NOTE | 2022-08-07 07:29 | DCINST_ITS ---
Discharge Instructions Diet Discharge Diet: No restrictions Activity Weight Bearing Status: Weight bearing as tolerated Dressing / Incision Call your doctor if you observe: Shortness of breath and Chest pain Additional Dressing/Incision Instructions:: Ice and elevate lower extremities 2 weeks while not ambulating. Ambulation is encouraged. Weight bearing as tolerated. Use assistive devise for stability. Encourage FULL knee extension and flexion 1 time EVERY time you get up and down and MULTIPLE times per day. No showering 72 hours after surgery. Begin showering postop day #3. Remove the dressing prior to shower and gently wash with warm water and antibacterial soap then pat dry and place abdominal pad (or plain gauze) and SANA hose over top. This is to be done daily. Do not submerge for 3 weeks. If not showering daily after the initial 72 hours then you must clean incision and change dressing daily. Do not allow animals near the incision area. Keep clean. Follow anti- coagulation recommendations as prescribed. Do not take any NSAIDs while on blood thinner. Do not take any additional narcotic pain medication other than what was prescribed on your surgery day without discussing with physician. Narcotic medication can be addictive, try to wean down as soon as pain allows, do not drink alcohol while taking narcotics. Supplement narcotic prescription with acetaminophen 1000 mg 4 times a day. Start physical therapy. If you are not currently scheduled for physical therapy or you are unsure of appointment time please call office DYLAN to arrange. Call Dr. Fritz with any concerns. Follow Up Care Please Follow Up With: Jason Fritz DO When: 2 weeks Test Results: Test results from this visit will be discussed in further detail at your follow- up appointment, if applicable. Discharge Plan Admission Admit Date/Time: 08/05/22 10:21 Primary Reason for Your Visit: Right total knee arthroplasty Attending Provider: Jason Fritz Primary Care Provider: Renzo Beatty Discharge Orders/Prescriptions Prescriptions: New acetaminophen [acetaminophen] 500 mg tablet 1,000 mg PO Q6H PRN Qty: 100 0RF Eliquis 2.5 mg tablet 2.5 mg PO BID Qty: 70 0RF oxycodone 5 mg tablet 5 - 15 mg PO Q4H PRN (Reason: pain) 5 Days Qty: 60 0RF Rx Instructions: Wean down on pain medication as soon as possible, only take what is needed to control pain supplement with Tylenol and Celebrex. Continued calcium citrate-vitamin D3 [Calcium Citrate + D] 315 mg-5 mcg (200 unit) tablet 2 tab PO QHS multivitamin capsule 2 cap PO DAILY mecobalamin (vitamin B12) 1,000 mcg tablet,disintegrating 1,500 mcg SL DAILY Rx Instructions: place tablet under tongue and allow to dissolve for at least30 secs before swallowing amlodipine 5 mg tablet 5 mg PO DAILY metoprolol succinate 25 mg tablet extended release 24 hr 25 mg PO DAILY pantoprazole [Protonix] 20 mg tablet,delayed release (DR/EC) 40 mg PO DAILY gabapentin 100 mg capsule 100 mg PO BID tadalafil 20 mg tablet 20 mg PO DAILY PRN (Reason: Erectile Dysfunction) Rx Instructions: administer approximately 30min before sexual activity; do not use more than 1 dose per 24hrs celecoxib [Celebrex] 200 mg Capsule 200 mg PO DAILY cholecalciferol (vitamin D3) [Vitamin D3] 10 mcg (400 unit) Capsule 10 mcg PO DAILY magnesium Tablet 1 tab PO QHS Discontinued tramadol 50 mg tablet 50 mg PO BID Label Comments: 50 MG Q AM AND 100 MG PO Q PM Referrals / Follow Up: Renzo Beatty DO [Primary Care Provider] - Disposition Disposition (needs filled in before D/C Order can be placed): Home, Self Care
[2022-08-07 08:41] VITALS: PULSE 62
[2022-08-07] MEDS: Senna/Docusate Sodium 1 Tablet 2 TABLET PO ×2 (08:41→21:03)
[2022-08-07] MEDS: oxyCODONE 5 MG Tablet 15 MG PO ×4 (08:41→23:13)
[2022-08-07] MEDS: Metoprolol(XL)Succ 25 MG Tablet PO (08:41)
[2022-08-07] MEDS: Pantoprazole Sodium 40 MG Tablet PO (08:42)
[2022-08-07] MEDS: APIXABAN 2.5 MG TABLET (WCH) PO ×2 (08:42→21:02)
[2022-08-07] MEDS: amLODIPine 5 MG Tablet PO (08:42)
[2022-08-07] MEDS: Gabapentin 100 MG Capsule PO ×2 (08:43→21:02)
[2022-08-07 08:45] VITALS: BP 147/79; PULSE 63; RESP 18; TEMP 37.4; O2SAT 100
--- NOTE | 2022-08-07 10:50 | CASEMGMT ---
Addendum entered by Velvet Woody 08/07/22 13:46: SW updated MD Pak that pt will go to TCU. Addendum entered by Velvet Woody 08/07/22 11:57: [facility] responded that pt has been accepted and precert has been started. SW updated pt of acceptance. Addendum entered by Velvet Woody 08/07/22 10:54: Referral sent to [facility] at [facility]. Original Note: Social Work SW in to meet with pt following update from therapy team that pt will need placement at nursing facility as pt cannot complete steps. SW introduced self and role at the hospital. Pt agreeable to discussing discharge planning. A list of SNF providers including quality and resource use data consistent with the patient?s preferred geographic region, medical needs, and insurance network were provided from the [facility] Guide. Pt reviewed list shared preference would be [facility]. DANIEL explained will send referral and that pt should continue to review list in the event that a second choice would be needed. Pt to speak with regarding alternative options and will update DANIEL later. PLAN: TCU, pending acceptance and precert? SHAHEEN Luong?
--- NOTE | 2022-08-07 14:05 | PCM.TXEXTCAR ---
Diet Diet Order/Speech Therapy: 08/05/22 17:52 Diet: Regular - General Wound(s) RT KNEE: Wound Type: Surgical Incision RT LOWER LEG: Wound Type: Surgical Incision Therapies Weight Bearing: Weight bearing as tolerated Problem/Diagnosis (1) S/P total knee arthroplasty: Status: Acute Code(s): Z96.659 - Presence of unspecified artificial knee joint Plan s/p right total knee arthroplasty oxycodone 5-15 mg every 4 hours to control pain more adequately Continue DVT prophylaxis SCDs SANA hale Eliquis 2.5 mg twice daily for 35 days PT OT weightbearing as tolerated Patient be discharged home if his pain is better controlled and tolerates physical therapy on the higher dose of oxycodone and follow-up in the office 2 weeks Allergies/Procedures Done in Hospital Allergies olmesartan medoxomil [From Benicar] Allergy (Verified 08/05/22 10:52) Itching Type of Care/Length of Stay Estimated LOS: Convalescent Care Less Than 30 days Type of Care Needed: Skilled Rehab Potential: Good Prognosis: Good Additional Orders/Day of Discharge Day of Discharge: 08/05/22 Follow Up Care Please Follow Up With: Jason Fritz DO When: 2 weeks Discharge Plan Admission Admit Date/Time: 08/05/22 10:21 Primary Reason for Your Visit: Right total knee arthroplasty Attending Provider: Jason Fritz Primary Care Provider: Renzo Beatty Discharge Orders/Prescriptions Prescriptions: New acetaminophen [acetaminophen] 500 mg tablet 1,000 mg PO Q6H PRN Qty: 100 0RF Eliquis 2.5 mg tablet 2.5 mg PO BID Qty: 70 0RF oxycodone 5 mg tablet 5 - 15 mg PO Q4H PRN (Reason: pain) 5 Days Qty: 60 0RF Rx Instructions: Wean down on pain medication as soon as possible, only take what is needed to control pain supplement with Tylenol and Celebrex. Continued calcium citrate-vitamin D3 [Calcium Citrate + D] 315 mg-5 mcg (200 unit) tablet 2 tab PO QHS multivitamin capsule 2 cap PO DAILY mecobalamin (vitamin B12) 1,000 mcg tablet,disintegrating 1,500 mcg SL DAILY Rx Instructions: place tablet under tongue and allow to dissolve for at least30 secs before swallowing amlodipine 5 mg tablet 5 mg PO DAILY metoprolol succinate 25 mg tablet extended release 24 hr 25 mg PO DAILY pantoprazole [Protonix] 20 mg tablet,delayed release (DR/EC) 40 mg PO DAILY gabapentin 100 mg capsule 100 mg PO BID tadalafil 20 mg tablet 20 mg PO DAILY PRN (Reason: Erectile Dysfunction) Rx Instructions: administer approximately 30min before sexual activity; do not use more than 1 dose per 24hrs celecoxib [Celebrex] 200 mg Capsule 200 mg PO DAILY cholecalciferol (vitamin D3) [Vitamin D3] 10 mcg (400 unit) Capsule 10 mcg PO DAILY magnesium Tablet 1 tab PO QHS Discontinued tramadol 50 mg tablet 50 mg PO BID Label Comments: 50 MG Q AM AND 100 MG PO Q PM Referrals / Follow Up: Renzo Beatty DO [Primary Care Provider] - Disposition Disposition (needs filled in before D/C Order can be placed): Home, Self Care
[2022-08-07 14:43] VITALS: BP 145/91; PULSE 60; RESP 18; TEMP 36.8; O2SAT 100
[2022-08-07 20:51] VITALS: BP 144/83; PULSE 65; RESP 18; TEMP 36.9; O2SAT 99
[2022-08-07] MEDS: Calcium Carb/Vitamin D 1 TABLET Tablet 2 TABLET PO (21:02)
[2022-08-08] MEDS: oxyCODONE 5 MG Tablet 15 MG PO ×4 (04:07→14:55)
[2022-08-08 04:09] VITALS: BP 148/98; PULSE 71; RESP 18; TEMP 36.8; O2SAT 100
[2022-08-08] MEDS: Acetaminophen 500 MG Tablet 1000 MG PO ×2 (06:09→13:10)
[2022-08-08 06:40] LABS: Hemoglobin 12.7 g/dL (13.0-16.5); Mean Corp Hgb Conc 33.4 g/dL (32-36); Mean Corpuscular Hgb 30.5 pg (27.0-32.0); Mean Corpuscular Volume 91.1 fL (80-94); Mean Platelet Vol. 10.3 fl (6.2-12.0); Platelet Count 166 K/mm3 (150-450); RBC Distribution Width CV 13.5 % (11.6-14.6); RBC Distribution Width SD 45.1 fl (35.1-43.9); Red Blood Count 4.17 M/mm3 (4.6-6.2); White Blood Count 7.8 K/mm3 (4.4-11.0)
[2022-08-08 08:00] VITALS: PULSE 65
[2022-08-08] MEDS: Senna/Docusate Sodium 1 Tablet 2 TABLET PO (08:00)
[2022-08-08] MEDS: Gabapentin 100 MG Capsule PO (08:00)
[2022-08-08] MEDS: Pantoprazole Sodium 40 MG Tablet PO (08:00)
[2022-08-08] MEDS: Metoprolol(XL)Succ 25 MG Tablet PO (08:00)
[2022-08-08] MEDS: APIXABAN 2.5 MG TABLET (WCH) PO (08:01)
[2022-08-08] MEDS: amLODIPine 5 MG Tablet PO (08:01)
[2022-08-08 08:26] VITALS: BP 145/100; PULSE 65; RESP 16; TEMP 37.1; O2SAT 97
[2022-08-08 08:29] VITALS: BP 145/100; PULSE 65; RESP 16; TEMP 37.1; O2SAT 97
[2022-08-08 11:16] VITALS: BP 135/92; PULSE 88; RESP 16; TEMP 36.7; O2SAT 98
--- NOTE | 2022-08-08 11:49 | CASEMGMT ---
Social Work Therapy reporting that pt did well with therapy today and can now return home. DANIEL met with pt and and spoke with who states pt is doing very well and pt can discharge home. Pt to call [facility] to reschedule outpt PT appointment. Pt has needed DME. SW will update physician when he rounds. Referral to TCU cancelled. SHAHEEN Wayne
[2022-08-08 15:10] VITALS: BP 133/76; PULSE 65; RESP 16; TEMP 36.7; O2SAT 99
--- NOTE | 2022-08-08 15:54 | PN.ORTHO_ITS ---
Subjective Subjective Patient states that he has seen a significant improvement in his pain today. He did a lot better with PT/OT and after discussion he states that he is ready to go home. This was also discussed with his and they are all in agreement for him to go home. Objective Data Objective Data Vital Signs: Vital Signs Temp Pulse Resp BP Pulse Ox O2 Del Method O2 Flow Rate 98.1 F 65 16 133/76 H 99 Room Air 2 08/08/22 15:10 08/08/22 15:10 08/08/22 15:10 08/08/22 15:10 08/08/22 15:10 08/08/22 15:10 08/05/22 18:30 Oxygen Flow Rate (L/min) 2 Oxygen Delivery Method Room Air Weight: 255 lb 11.779 oz Body Mass Index (BMI) 37.8 Intake & Output: Intake and Output for Last 24 Hours 08/06/22 08/07/22 08/08/22 23:59 23:59 23:59 Intake Total 2435.25 / 2435.25 Balance 2435.25 / 2435.25 Lab / Micro Data Result Diagrams: 08/08/22 06:25 08/06/22 05:45 Labs: Laboratory Results - last 24 hr 08/08/22 06:25: WBC 7.8, RBC 4.17 L, Hgb 12.7 L, Hct 38.0 L, MCV 91.1, MCH 30.5, MCHC 33.4, RDW Std Deviation 45.1 H, RDW Coeff of Cristian 13.5, Plt Count 166, MPV 10.3 Micro: Microbiology 07/31/22 13:50 Swab (Method) Nasal Screen MRSA/MSSA - Final Physical Exam Const alert, oriented x3 and no apparent distress General Appearance: cooperative and well developed Resp normal respiratory effort Effort and Inspection: able to speak in complete sentences Extremity no calf tenderness Extremity Narrative: Occlusive dressing remains intact and is clean and dry. Continues to have soft compartments and no calf pains or DVT signs. Normal sensation to light touch throughout the extremity. Intact motor function of ankle/foot/ toes with intact dorsiflexion and plantart flexion as well as EHL, and tibatialis anterior. General Extremity: edema right lower extremity mild Skin Wound Narrative: large incisional dressing dry without saturation. So minor dried blood/saturation on the distal tibial wound (array placement.) No surrounding erythema or signs of acute inflammation/infection. Psych mental status grossly normal Assessment & Plan Assessment/Plan (1) Other acute postprocedural pain: (2) S/P total knee arthroplasty: PLAN: Plan Patient seen today on surgical floor day 3 postop from right total knee arthroplasty. Patient underwent procedure on Friday for 08-05-22. Procedure was performed without complication. Patient was transferred up to [facility] where stay was unremarkable without any concerns. Patient did really well day 1 with some mild complaints of pain. He had a little bit of increase in pain on day 2 and was thought that he would need to be transferred to transitional care for pain control however today patient is seen significant improvement in his pains and after going through physical therapy as well as other physical activities today states that he is ready to go home rather than to transitional care. At this time patient has physical exam findings consistent with day 3 postop without any signs of acute inflammation or infection and he also has no signs of DVT. Discharge instructions will be given for patient. 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 He can notify our office with any other questions or concerns. We did discuss changing the dressing though after 72 hours postop prior to his first shower. Can apply ABD pad/nonadherent dressing over the wound held in place with the compression stockings. I would continue the compression stockings at least until 2-week postop check. Patient should wash this daily with soap and water. He does not need to use topical antibacte rial. Continue icing daily using the polar ice which she has been doing regularly. He needs to make sure he is doing ankle pumps regularly and then also make sure that he is doing range of motion as discussed with physical therapy. He currently does have a pillow under his knee which we did explain he needs to make sure that he is not having a pillow under knee all the time and that this can make getting full extension more difficult. Again notify with any questions or concerns. This note was generated with [employer] software. It may contain incorrect words, spelling, and punctuation that were not noted in checking the note before signing.
--- NOTE | 2022-08-09 07:04 | PCM.DC.SUM ---
Providers Date of Admission: 08/05/22 Primary Care Physician: Dr. Renzo Beatty, DO Reason For Visit: RT TOTAL KNEE W HARJINDER Diagnosis Discharge Diagnosis (1) Other acute postprocedural pain: Status: Acute Code(s): G89.18 - Other acute postprocedural pain (2) S/P total knee arthroplasty: Status: Acute Code(s): Z96.659 - Presence of unspecified artificial knee joint Plan s/p right total knee arthroplasty oxycodone 5-15 mg every 4 hours to control pain more adequately Continue DVT prophylaxis SCDs SANA hose Eliquis 2.5 mg twice daily for 35 days PT OT weightbearing as tolerated Patient be discharged home if his pain is better controlled and tolerates physical therapy on the higher dose of oxycodone and follow-up in the office 2 weeks Medications at Discharge Home Medications calcium citrate 315 mg-vitamin D3 5 mcg (200 unit) tablet (Calcium Citrate + D) 2 tab PO QHS SUPPLEMENT 04/25/20 multivitamin 2 cap PO DAILY SUPPLEMENT 04/25/20 amlodipine 5 mg tablet 5 mg PO DAILY BP 08/04/20 mecobalamin (vitamin B12) 1,000 mcg disintegrating tablet,sublingual 1,500 mcg sublingual DAILY SUPPLEMENT 08/04/20 metoprolol succinate 25 mg tablet,extended release 24 hr 25 mg PO DAILY BP 08/04/20 pantoprazole 20 mg tablet,delayed release (Protonix) 40 mg PO DAILY GERD 01/29/21 celecoxib 200 mg capsule (Celebrex) 200 mg PO DAILY PAIN 05/23/21 cholecalciferol (vitamin D3) 10 mcg (400 unit) capsule (Vitamin D3) 10 mcg PO DAILY SUPPLEMENT 01/08/22 magnesium 1 tab PO QHS SUPPLEMENT 01/08/22 gabapentin 100 mg capsule 100 mg PO BID PAIN 02/11/22 tadalafil 20 mg tablet 20 mg PO DAILY PRN Erectile Dysfunction 02/11/22 acetaminophen 500 mg tablet 1,000 mg PO Q6H PRN #100 tabs 08/07/22 apixaban 2.5 mg tablet (Eliquis) 2.5 mg PO BID #70 tabs 08/07/22 oxycodone 5 mg tablet 5 - 15 mg PO Q4H PRN pain 5 days #60 tabs 08/07/22 Hospital Course Summary of Care Provided Hospital Course: Who has long history of degenerative joint disease to the knee who has failed conservative treatment and wished to undergo elective total knee arthroplasty. Patient underwent the aformentioned procedure on the admission date without any intraoperative complications. Patient did receive pre-and postoperative antibiotics which were discontinued within 23 hours postoperatively. Patient did receive spinal anesthesia as well as an adductor canal block postoperatively. pain was controlled with IV and transition to p.o. pain medication, however patient did not feel his pain was adequately controlled and was having significant pain with physical therapy therefore his oxycodone was increased to up to 15 mg every 4 hours , patient was admitted on 08/05/2022 the day of surgery and was going to be discharged home 08/07/2022 however he did not feel he would be able to go home secondary to his amount of pain he was having and how he was doing with physical therapy therefore we decided to get him into our transitional care unit before returning home no bed was available that day when patient was seen the next day his pain was much better controlled and was doing much better with ambulation and wished to be discharged home, patient will be discharged home with oxycodone and will continue Tylenol as well. Patient had minimal intraoperative blood loss and 2gm tranexamic acid was administered there was no need for postoperative blood transfusion Patients vital signs remained stable. Patient was started on both mechanical and chemical DVT per prophylaxis postoperatively in the form of SCDs SANA hose and Eliquis 2.5 mg twice daily for which she will continue for 2 additional weeks post hospital discharge. thigh high sana hose placed over top of the meplix silver dressing. This should be removed 72 hrs post operatively and showering begun daily at that time with warm water and antibacterial soap. not to submerge for 3 weeks. To change dressing daily after first dressing change. Patient will follow-up in the office in 2 weeks. No intrahospital complications. Weight / BMI Weight Weight: 255 lb 11.779 oz Body Mass Index (BMI) 37.8 ABG / Lab / Microbiology Data Result Diagrams: 08/08/22 06:25 08/06/22 05:45 Microbiology: Microbiology 07/31/22 13:50 Swab (Method) Nasal Screen MRSA/MSSA - Final D/C Instructions Discharge Diet: No restrictions Weight Bearing Status: Weight bearing as tolerated Call your doctor if you observe: Shortness of breath and Chest pain Additional Dressing/Incision Instructions: Ice and elevate lower extremities 2 weeks while not ambulating. Ambulation is encouraged. Weight bearing as tolerated. Use assistive devise for stability. Encourage FULL knee extension and flexion 1 time EVERY time you get up and down and MULTIPLE times per day. No showering 72 hours after surgery. Begin showering postop day #3. Remove the dressing prior to shower and gently wash with warm water and antibacterial soap then pat dry and place abdominal pad (or plain gauze) and SANA hose over top. This is to be done daily. Do not submerge for 3 weeks. If not showering daily after the initial 72 hours then you must clean incision and change dressing daily. Do not allow animals near the incision area. Keep clean. Follow anti-coagulation recommendations as prescribed. Do not take any NSAIDs while on blood thinner. Do not take any additional narcotic pain medication other than what was prescribed on your surgery day without discussing with physician. Narcotic medication can be addictive, try to wean down as soon as pain allows, do not drink alcohol while taking narcotics. Supplement narcotic prescription with acetaminophen 1000 mg 4 times a day. Start physical therapy. If you are not currently scheduled for physical therapy or you are unsure of appointment time please call office DYLAN to arrange. Call Dr. Fritz with any concerns. Please Follow Up With: Jason Fritz DO When: 2 weeks Meaningful Use Info Meaningful Use Diagnoses (Choose all that apply): None applicable Discharge Plan Admission Admit Date/Time: 08/05/22 10:21 Primary Reason for Your Visit: Right total knee arthroplasty Attending Provider: Jason Fritz Primary Care Provider: Renzo Beatty Discharge Orders/Prescriptions Prescriptions: New acetaminophen [acetaminophen] 500 mg tablet 1,000 mg PO Q6H PRN Qty: 100 0RF Eliquis 2.5 mg tablet 2.5 mg PO BID Qty: 70 0RF oxycodone 5 mg tablet 5 - 15 mg PO Q4H PRN (Reason: pain) 5 Days Qty: 60 0RF Rx Instructions: Wean down on pain medication as soon as possible, only take what is needed to control pain supplement with Tylenol and Celebrex. Continued calcium citrate-vitamin D3 [Calcium Citrate + D] 315 mg-5 mcg (200 unit) tablet 2 tab PO QHS multivitamin capsule 2 cap PO DAILY mecobalamin (vitamin B12) 1,000 mcg tablet,disintegrating 1,500 mcg SL DAILY Rx Instructions: place tablet under tongue and allow to dissolve for at least30 secs before swallowing amlodipine 5 mg tablet 5 mg PO DAILY metoprolol succinate 25 mg tablet extended release 24 hr 25 mg PO DAILY pantoprazole [Protonix] 20 mg tablet,delayed release (DR/EC) 40 mg PO DAILY gabapentin 100 mg capsule 100 mg PO BID tadalafil 20 mg tablet 20 mg PO DAILY PRN (Reason: Erectile Dysfunction) Rx Instructions: administer approximately 30min before sexual activity; do not use more than 1 dose per 24hrs celecoxib [Celebrex] 200 mg Capsule 200 mg PO DAILY cholecalciferol (vitamin D3) [Vitamin D3] 10 mcg (400 unit) Capsule 10 mcg PO DAILY magnesium Tablet 1 tab PO QHS Discontinued tramadol 50 mg tablet 50 mg PO BID Label Comments: 50 MG Q AM AND 100 MG PO Q PM Referrals / Follow Up: Renzo Beatty DO [Primary Care Provider] - Disposition Disposition (needs filled in before D/C Order can be placed): Home, Self Care
== END 2022-08-08 17:11 | disposition home or self-care (01) | DRG 470 ==
LOC: ACINP 10:46 → MS3 08-06 06:17
PROVIDERS: Anesthesiology; Admitting Provider Orthopaedic Surgery; PCP Family Medicine; Referring Provider Orthopaedic Surgery; Visit Provider Orthopaedic Surgery
PROC: 0SRC0JZ Replacement of Right Knee Joint with Synthetic Substitute, Open Approach (ICD-10-PCS; CPT 27447; principal; 2022-08-05 12:30)
DX: M17.0 Bilateral primary osteoarthritis of knee (principal); F17.200 Nicotine dependence, unspecified, uncomplicated; M41.9 Scoliosis, unspecified; M43.16 Spondylolisthesis, lumbar region; G89.18 Other acute postprocedural pain
CPT/HCPCS: 36415; 73560; 80048; 82962; 82985; 83036; 83735; 85027; 85610; 85730; 86850; 86900; 86901; 87081; 88305; 88311; 94668; 97110; 97116; 97162; 97166; 97530; 97535; 99252; C1776; J7120; A4216; G0463; J2405; J3475; J3490

== ENCOUNTER → 2022-09-06 | Outpatient (CLI) | payer OTHER, SELFPAY ==
--- NOTE | 2022-09-06 13:35 | RAD_ITS ---
EXAM: XR RIGHT KNEE, 3 VIEWS CLINICAL INDICATION: pain TECHNIQUE: Three views of the right knee. COMPARISON: No relevant prior studies available. FINDINGS: BONES/JOINTS: Total arthroplasty identified with satisfactory alignment and no complications. No acute or healing fracture or malalignment. At least moderate suprapatellar joint effusion. SOFT TISSUES: Prepatellar soft tissue swelling. Old healed fracture involving the proximal fibular shaft. No radiopaque foreign body. No soft tissue gas. RAD/Knee 3 Views IMPRESSION: At least moderate suprapatellar joint effusion without acute or healing fracture or malalignment. Electronically Signed: Harish Samuels MD at 3:32 EDT ,
== END | disposition home or self-care (01) ==
LOC: RAD 13:31
PROVIDERS: PCP Family Medicine; Referring Provider Physician Assistant; Visit Provider Physician Assistant
DX: G89.18 Other acute postprocedural pain (principal); Z96.659 Presence of unspecified artificial knee joint
CPT/HCPCS: 73562

== ENCOUNTER 2022-09-17 11:54 | Day surgery (SDC) | payer OTHER, SELFPAY ==
[2022-09-17] VITALS (7 sets, daily range): BP systolic 131–146; BP diastolic 66–95; PULSE 52–63; RESP 16–18; TEMP 36.2–36.4; O2SAT 99–100; BMI 34.4
[2022-09-17] MEDS: Lactated Ringers 1,000 ML 15 ML IV (12:41)
--- NOTE | 2022-09-17 13:49 | HP.PCM_ITS ---
History and Physical Date of Admission: 09/17/22 [facility] [address] [place] [address] OFFICE VISIT Date of Service:? 09/16/22 MR#: [id number] Acct: [id number] Name:MIRIAM MILIAN Rep #: [id number] : 1970 ? ? Provider: Dr. Jason Fritz, DO Age/Sex:? 52/M ? ? Location: [facility] [email or web address] Status: Signed Intake Vital Signs ? 06/03/2313:28 09/13/2311:36 Height 5 ft 9 in 5 ft 8.9 in Weight: ? 254 lb BMI ? 37.6 BP ? 134/88 H Intake Visit Reasons:?right knee Chief Complaint: mid/low back Is patient in pain?: Yes Pain scale (1-10): 2 Allergies olmesartan medoxomil [From Benicar] Allergy (Verified 09/16/22 15:56) Itching Medications calcium citrate 315 mg-vitamin D3 5 mcg (200 unit) tablet (Calcium Citrate + D) 2 tab PO QHS SUPPLEMENT 04/25/20 [History Confirmed 09/16/22] multivitamin 2 cap PO DAILY SUPPLEMENT 04/25/20 [History Confirmed 09/16/22] amlodipine 5 mg tablet 5 mg PO DAILY BP 08/04/20 [History Confirmed 09/16/22] mecobalamin (vitamin B12) 1,000 mcg disintegrating tablet,sublingual 1,500 mcg sublingual DAILY SUPPLEMENT 08/04/20 [History Confirmed 09/16/22] metoprolol succinate 25 mg tablet,extended release 24 hr 25 mg PO DAILY BP 08/04/20 [History Confirmed 09/16/22] pantoprazole 20 mg tablet,delayed release (Protonix) 40 mg PO DAILY GERD 01/29/21 [History Confirmed 09/16/22] celecoxib 200 mg capsule (Celebrex) 200 mg PO DAILY PAIN 05/23/21 [History Confirmed 09/16/22] cholecalciferol (vitamin D3) 10 mcg (400 unit) capsule (Vitamin D3) 10 mcg PO DAILY SUPPLEMENT 01/08/22 [History Confirmed 09/16/22] magnesium 1 tab PO QHS SUPPLEMENT 01/08/22 [History Confirmed 09/16/22] gabapentin 100 mg capsule 100 mg PO BID PAIN 02/11/22 [History Confirmed 09/16/22] tadalafil 20 mg tablet 20 mg PO DAILY PRN Erectile Dysfunction 02/11/22 [History Confirmed 09/16/22] acetaminophen 500 mg tablet 1,000 mg PO Q6H PRN #100 tabs 08/07/22 [Rx Confirmed 09/16/22] oxycodone 5 mg tablet 5 - 15 mg PO Q4H PRN pain 5 days #42 tabs 09/04/22 [Rx Confirmed 09/16/22] PFSH Medical History? Acute bronchitis, unspecified Alcohol use Arthritis Arthritis Back pain Back pain Chronic wound of extremity Contact with and (suspected) exposure to other viral communicable diseases CPAP (continuous positive airway pressure) dependence CPAP (continuous positive airway pressure) dependence Degenerative disc disease Diabetes Disorder of uvula DVT (deep venous thrombosis) Gastric reflux GERD (gastroesophageal reflux disease) Hay fever Hemorrhoids History of deep vein thrombosis History of diabetes mellitus History of echocardiogram History of hemorrhoids History of steroid therapy History of stress test HTN (hypertension) Hypertension Hypertension Kidney stones Knee pain Lab test negative for COVID-19 virus Leg cramps Obesity (BMI 35.0-39.9 without comorbidity) Obstructive sleep apnea 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 Deviated septum H/O foot surgery H/O hernia repair H/O knee surgery H/O shoulder surgery History of arthroscopic knee surgery History of gastric restrictive surgery History of shoulder surgery History of surgical removal of ganglion cyst History of tonsillectomy History of tonsillectomy History of umbilical hernia repair Hx of colonoscopy hx of gastric sleeve Family History? Other Breast cancer Social History? Smoking Status:? Current every day smoker tobacco type: cigars alcohol intake:? current alcohol intake frequency: holidays/special occasions only HPI right knee Details: Parts of this documentation were recorded by a scribe, this documentation accurately reflects the service provided and the decisions made by me, Dr. Jason Fritz, 09/16/22 [id number]. MIRIAM BURTON is a 52 year old M here today for 6 week post op, right TKA, dos 08/06/22. States that his pain level now is that same as it was before surgery but does notice slight improvement in his right knee. States that his pain is the worst when he is in bed and tries to lift it to roll over. Patient rates his pain a 2/10. Patient is still taking the oxycodone for the pain every 4-6 hours.? Ortho Exam General General: Yes no acute distress Neurologic: Yes alert and Yes oriented x3 Psychologic: Yes reasonable and appropriate Right Knee Skin/Wound: Yes healed, No erythema, No ecchymosis and Yes swelling Knee ROM: Yes ROM-Flexion 0-140 (103) Head: Normocephalic Atraumatic Chest: symmetrical rise, non-labored breathing, no audible wheeze Abdomen: no guarding, non-rigid Coding Level of Care Code Global Post Op Diagnoses Knee stiffness? M25.669 Assessment and Plan Assessment and Plan (1) Knee stiffness: ? ? ? Medications: Discontinued oxycodone ?? needs to wean down as soon as possible. only take what is needed. supplement with tylenol and NSAID. ?? Discontinued Reason:? By Stop Date 5 - 10 mg (1 - 2 x 5 mg) PO Q4H 7 days P RN 42 tabs 0RF Pain Score 6-10/10 G89.18 - Other acute postprocedural pain ? Plan He should continue to wean himself off the pain medications. Patient should massage his incision. Spoke with the patient about having a knee manipulation under anesthesia due to continued stiffness. Explained he may have a slight increase in range of motion but will likely not make huge gains. Patient will need more pain medication post op. Follow up in 1 month or sooner if pain, swelling, numbness or associated symptoms, or concerns develop.? All questions answered. Patient in agreement of plan. Plan Details Goals & Barriers: Goals Decrease pain Decrease spasm Decrease inflammation Target Due Date 01/08/22 Barriers DDD Anterolisthesis L5/S1 Dextroscoliosis 09/16/22 1610 <Electronically signed by Jason Borruso DO> Date Jason Fritz DO I have examined the patient and the H&P has been reviewed. There are no clinical changes since date of exam. Mary Lou Signature: Date (if applicable) ? CC: ? ~
[2022-09-17] MEDS: Cefazolin 2 GM in 0.9% Normal Saline 100 ML IV (14:23)
--- NOTE | 2022-09-17 14:23 | DCINST_ITS ---
Discharge Instructions Dressing / Incision Call your doctor if you observe: Shortness of breath and Chest pain Additional Dressing/Incision Instructions:: Encourage full knee flexion and extension regularly. Start physical therapy immediately. May shower and return to activities as normal. Keep pain controlled with medications as discussed with Dr. Fritz in order to keep full range of motion. Ice and elevate next 72 hours. Follow-up with Dr. Fritz and call with any questions or concerns. Follow Up Care Please Follow Up With: Jason Fritz DO When: 2 weeks Test Results: Test results from this visit will be discussed in further detail at your follow- up appointment, if applicable. Discharge Plan Admission Primary Reason for Your Visit: Arthrofibrosis right knee Attending Provider: Jason Fritz Primary Care Provider: Renzo Beatty Discharge Orders/Prescriptions Prescriptions: New oxycodone 5 mg tablet 5 - 15 mg PO Q4H PRN (Reason: pain) 7 Days Qty: 50 0RF No Action calcium citrate-vitamin D3 [Calcium Citrate + D] 315 mg-5 mcg (200 unit) tablet 2 tab PO QHS multivitamin capsule 2 cap PO DAILY mecobalamin (vitamin B12) 1,000 mcg tablet,disintegrating 1,500 mcg SL DAILY Rx Instructions: place tablet under tongue and allow to dissolve for at least30 secs before swallowing amlodipine 5 mg tablet 5 mg PO DAILY metoprolol succinate 25 mg tablet extended release 24 hr 25 mg PO DAILY pantoprazole [Protonix] 20 mg tablet,delayed release (DR/EC) 40 mg PO DAILY gabapentin 100 mg capsule 100 mg PO BID tadalafil 20 mg tablet 20 mg PO DAILY PRN (Reason: Erectile Dysfunction) Rx Instructions: administer approximately 30min before sexual activity; do not use more than 1 dose per 24hrs celecoxib [Celebrex] 200 mg Capsule 200 mg PO DAILY cholecalciferol (vitamin D3) [Vitamin D3] 10 mcg (400 unit) Capsule 10 mcg PO DAILY magnesium Tablet 1 tab PO QHS acetaminophen [acetaminophen] 500 mg tablet 1,000 mg PO Q6H PRN Qty: 100 0RF oxycodone 5 mg tablet 5 - 15 mg PO Q4H PRN (Reason: pain) 5 Days Qty: 42 0RF Rx Instructions: Wean down on pain medication as soon as possible, only take what is needed to control pain supplement with Tylenol. Referrals / Follow Up: Renzo Beatty DO [Primary Care Provider] - Disposition Disposition (needs filled in before D/C Order can be placed): Home, Self Care
--- NOTE | 2022-09-17 14:27 | OP.PCM_ITS ---
Operative Report Date of Procedure: 09/17/22 Preoperative diagnosis: Arthrofibrosis right knee Postoperative diagnosis: Same Procedure: Manipulation under anesthesia with intra-articular steroid injection Anesthesia: General EBL: None Complications: None Condition: Able to PACU Indication for procedure: This is a 52-year-old male who underwent total knee arthroplasty approximately 6 weeks ago who is failed to gain her range of motion wish to undergo an elective manipulation under anesthesia to increase range of motion. risk benefits and alternatives were reviewed including risk of bleeding infection nerve, artery, bone, tissue damage, blood clot need for further surgery and continued pain. Procedure: Patient was met in the preoperative holding area once again the operative extremity was identified by both patient and physician and was marked. Patient was brought back to the operating room anesthesia was started. A t imeout was called into the proper patient procedure and extremity were being contemplated. The pre-operative range of motion was lacking 10 deg extension and achieving 103 degrees flexion. After patient was adequately anesthetized extension manipulation was performed followed by patellar mobilization followed by gradual flexion scar tissue was palpated being released with no concerning signs for tendon rupture or fracture. Postoperative range of motion was much improved with near full extension and 125 degrees of flexion. Following the manipulation using sterile technique from the superior lateral position an intra-articular injection with 40 mg of depo medrol and 4 cc 0.25%marcaine was injected. bandaid applied
[2022-09-17] MEDS: MethylPREDNISolone Acetate 40 MG/ML Vial IM (14:33)
[2022-09-17] MEDS: oxyCODONE 5 MG Tablet PO (15:38)
== END 2022-09-17 16:21 | disposition home or self-care (01) ==
LOC: SDC 11:54 → AC 11:54
PROVIDERS: PCP Family Medicine; Referring Provider Orthopaedic Surgery; Visit Provider Orthopaedic Surgery
PROC: (CPT 27570; principal; 2022-09-17 14:10)
DX: M24.661 Ankylosis, right knee (principal); G47.33 Obstructive sleep apnea (adult) (pediatric); F17.290 Nicotine dependence, other tobacco product, uncomplicated; G89.18 Other acute postprocedural pain; M99.05 Segmental and somatic dysfunction of pelvic region; I10 Essential (primary) hypertension; E66.9 Obesity, unspecified; K21.9 Gastro-esophageal reflux disease without esophagitis; Z86.718 Personal history of other venous thrombosis and embolism; Z79.899 Other long term (current) drug therapy
CPT/HCPCS: 27570; 01380; 20610; J7120

== ENCOUNTER → 2022-10-21 | Outpatient (CLI) | payer OTHER, SELFPAY ==
--- NOTE | 2022-10-21 12:44 | MRI_ITS ---
STUDY: MRI LUMBAR SPINE WITHOUT CONTRAST REASON FOR EXAM: Male, 52 years old. pain TECHNIQUE: Standardized fat and water weighted pulse sequences were obtained in the sagittal and axial planes. Noncontrast images obtained. Contrast: No contrast administered COMPARISON: 12/07/2009 FINDINGS: Vertebral bodies and alignment. 1. Vertebral body height and marrow signal are maintained. No evidence of marrow edema or occult fracture. 2. There is a grade 1 anterolisthesis of L5 on S1, disc space narrowing mild endplate Modic type II changes. Pars defects are noted. There has been negligible interval change in the subluxation in the interval. 3. Paraspinous soft tissue planes have normal appearance. Normal appearance of the muscular fascial planes of the erector spinae. 4. Normal appearance of the sacrum and sacroiliac joints. Intervertebral disks levels. T12-L1: Normal endplates. Normal disc height, hydration and morphology. Normal bilateral facet joints. Normal central canal and bilateral lateral recesses. Normal bilateral intervertebral neural foramina. L1-2: Disc desiccation, no evidence of disc herniation canal or foraminal narrowing. L2-3: No evidence of disc herniation or canal stenosis. Facet hypertrophic changes and ligamentum flavum hypertrophy are present. There is mild crowding of nerve roots in the lateral recesses without evidence of tamar nerve root impingement. No evidence of foraminal stenosis. L3-4: Disc desiccation, broad-based posterior disc bulge/borderline protrusion with mild worsening interval, effacement of the anterior epidural space, no central canal stenosis however crowding of nerve roots in the lateral recesses bilaterally without tamar nerve root impingement. Facet and ligamentum flavum hypertrophic changes are present. No evidence of foraminal stenosis. L4-5: Disc desiccation, broad-based concentric disc protrusion worsened in the interval, effacement of the anterior epidural space and mild crowding of nerve roots in the lateral recesses, greater on the LEFT, however no tamar nerve root impingement, no central canal stenosis. Neural foramina are widely patent. Facet and ligament flavum hypertrophic changes are present. L5-S1: Grade 1 anterolisthesis of L5 on S1, unroofed disc material and a broad-based disc bulge is present. No evidence of canal stenosis. Facet hypertrophic changes and osteophytes associated with pars defects are noted. No canal stenosis however there is compromise of neural foramina bilaterally with impingement of the L5 nerve roots bilaterally within the neural foramina which has worsened in the interval.. Spinal cord: Normal appearance of the spinal cord and conus. Conus is located at L1. Cauda equina has normal appearance. No evidence of cord compression or edema. No intramedullary signal abnormality noted. MRI/Spine Lumbar (Routine) IMPRESSION: 1. Grade 1 anterolisthesis of L5 on S1 contributed by bilateral pars defects. Unroofed disc material and stable broad-based disc bulge noted. No canal stenosis however worsening foraminal narrowing with developing bilateral L5 nerve root impingement noted. 2. Interval development of broad-based concentric disc protrusion at L4-5 no canal stenosis however crowding of nerve roots in the lateral recesses particularly on the LEFT. 3. Broad-based disc bulge at L3-4 with crowding of nerve roots lateral recesses without canal stenosis or nerve root impingement. 4. Multilevel facet hypertrophy.. 5. Normal appearance of visualized spinal cord and conus. Electronically Signed: Luiz Gaona MD at 1:00 EDT ,
== END | disposition home or self-care (01) ==
LOC: MRI 12:35
PROVIDERS: PCP Family Medicine; Referring Provider Orthopaedic Surgery; Visit Provider Orthopaedic Surgery
DX: M43.10 Spondylolisthesis, site unspecified (principal)
CPT/HCPCS: 72148

== ENCOUNTER 2022-11-26 11:00 | Outpatient (RCR) | payer OTHER, SELFPAY ==
--- NOTE | 2022-08-14 09:15 | HP.PTEVAL_ITS ---
Patient's Visit Information MIRIAM BURTON is a 52 year old M referred to Physical Therapy by Dr. Jason Fritz DO with a diagnosis of R TKA DOS: 07/30/22. Date of Evaluation: 08/09/22 Physical Therapist: Denzel Reyes DPT - Visit Plan Frequency: 3x /Week Duration: 6 Weeks Plan: Start with ROM and edema/pain control. Progress to functional mobility, gait and strengthening of quads, hips and glutes. - Subjective Pt. is here today for his initial evaluation with diagnosis of R TKA. DOS: 07/30/22. Pt. arrives with his use of walker. Pt. reports having high levels of pain with standing and walking. He is sleeping in bed, but has his leg proped up. Pt. reports having a lot of difficulty pre surgery and difficulty with his mobility pre treatment as well. Pt. reports no calf pain. He has been trying to do his exercises, but has been having some difficulty. He has been off work since his back and leg have been so painful. Pt. has been icing and elevated as prescribed along with wearing his SANA hose as recommended. Pt. is hopeful to get back to all recreational and hopefully work activities without limitations. - Pain R knee Pain Intensity (Out of 10): 6 Pain Intensity Range: 3, 9 - Objective POSTURE: pt. has fwrd lean on to AD. Pt. has slight icnreased wt. shift to L side in stance with lacking TKE of RLE. PALPATION: Pt. has increased edema of R, 7 cm difference at mid patella. Pt. has negative homans signs. Pt. has decent healing iwhtout increase in drainage or signs of infection. NEURO: Pt. has normal sensation in BLE. Pt. has normal achilles DTR of BLEs. Pt. is able to rise on heels and toes. ROM: R knee: 0-5-78deg. Pt. is lacking 5deg and limited flexion to 79deg in supine. Pt. reports pain at limited factor. Pt. has tight B HS and calves as well. MMT: LLE: 5/5 throughout. RLE: ankle 5/5 throughout; knee: ext 5#, flexion 5#; hip: flexion 0#, abd 5#, ext 5#. GAIT: Pt. is able to ambulate with FWW. Pt. increased pain during R stance phase. Pt. lacks TKE during R stance phase. Decreased knee flexion during swing as well. Pt. was able to ambulate 150 feet this date. Pt. negotiated 1 flight of stairs iwth 2 HR with step to pattern. - Balance/Special Test Scores Lower Extremity Functional Score: 0 TUG Test Time Seconds: 39 WOMAC Total Score: 96 WOMAC Percentatge: 0 - Goals Goal 1:: LTG: Pt. to be I with HEP. Goal Time Frame: 4-6 Weeks Goal 2:: STG: Pt. to have increased PROM of R knee to 0-0-120deg. Goal Time Frame: 2-4 Weeks Goal 3:: LTG: Pt. to have R knee AROM of 0-0-120deg without increase in symptoms. Goal Time Frame: 6-8 Weeks Goal 4:: STG: Pt. to have symmetrical girth of B knees. Goal Time Frame: 4-6 Weeks Goal 5:: LTG: Pt. to ambulate without use of AD with normal gait pattern. Goal Time Frame: 6-8 Weeks Goal 6:: LTG: Pt. to negotiate 1 flight of stairs with 1 HR with reciprocal pattern. Goal Time Frame: 6-8 Weeks - Rehabilitation Potential Physical Therapy Diagnosis: Pt. obrien signs and symptoms consistent with R TKA. Pt. has marked hypomobility, increased pain, increased edema, weakness and difficulty with walking. Pt. would benefit from PT to address the above limitations. Rehabilitation Potential: Excellent - Anticipated Interventions Patient/Client Instruction: Educate patient on: Condition, Plan of Care, Risk Factors, Benefits of Fitness Program For the Purpose of:: To foster healthy habits, To improve decision making, To facilitate caregiver knowledge, To improve self management, To prevent re- injury, To improve ability to perform tasks related to life management, To improve tolerance to ADL's Therapeutic Exercise to Include: Strength training, Power training, Balance training, Body mechanics, Postural training, Flexibilty training, Gait and locomotor training, Passive ROM, Active ROM For the Purpose of:: To decrease pain, To decrease swelling/inflammation, To increase ROM, To improve nutrient delivery to tissue, To increase oxygenation perfusion, To improve muscle performance and motor function, To improve ability to perform ADL's, To increase tolerance to activity/condition/position, To improve gait and locomotor functions, To improve health of tissue, To decrease soft tissue restriction, To increase flexibility/ROM Manual Therapy Techniques to Include: Mobilization, Soft tissue mobilization For the Purpose of:: To decrease pain, To decrease swelling/inflammation, To increase ROM, To improve nutrient delivery to tissue, To increase oxygenation perfusion, To improve muscle performance and motor function IF ES: Yes Cryotherapy (ice pack, ice massage): Yes Vasopneumatic device: Yes For the Purpose of:: To decrease pain, To decrease swelling/inflammation, To increase ROM, To improve nutrient delivery to tissue, To improve gait and locomotor functions, To improve health of tissue, To decrease soft tissue restriction, To increase flexibility/ROM Thank you for the opportunity to evaluate your patient. For Medicare and Medicare HMO plans, please review the plan of care and approve it. It will need to be FAXED BACK to us at [phone] for Medicare purposes. For Medicare only, by signing this I certify the plan of care. Please let me know if there are questions or concerns regarding this plan of care. Physician Signature: Date:
--- NOTE | 2022-10-23 12:08 | HP.PTREVAL_ITS ---
Re-Evaluation Intro: Dr. Jason Fritz, DO, It has been my pleasure to treat MIRIAM BURTON over the last 27 visits for R TKA DOS: 07/30/22. Please see the progress note below for an update on the physical therapy plan of care! Subjective Subjective: Pt. reports overall doing okay, My knee has its days. Pt. reports 2/10 pain pre treatment today. Still having issues with stairs, and declines are still painful. He is to have an MRI on his back tomorrow. Objective Objective/Function: ROM: AROM: 0-0-118deg, PROM 0-0-124deg MMT: RLE: hip: flexion 29.9, abd 32.3#; knee: 31.8#, flexion 23.4# Pt. is about 25% weaker on the R side compared to L side. STAIRS: Pt. has some functional weakness with ascending, use of 1 HR. Descending 2 HR but able to do so reciprocally. Pt. had again some functional weakness with controll lowering on R LE. TU.34sec Pt. still has some edema, but expected. Overall his ROM has drastically improved. He does still have marked weakness effecting his gait, stair negotiation and gait. He does have some reports of hyper ext during stance phase, I attribute this to weakness and would like him to continue with his strengthening. He is planning on having in L knee replaced later this year and I would like his leg to be stronger in preparation for this. Plan Plan Plan: Focus on quad, glute medius and HS strengthening. Add in both machines and functional strengthening as tolerated. Balance/Gait/Functional tests Balance/Special Test Scores Lower Extremity Functional Score: 30 TUG Test Time Seconds: 11.34 Tug Test: <20 sec.=mostly independent WOMAC Total Score: 96 WOMAC Percentage: 0 Goals Goals Goal 1:: LTG: Pt. to be I with HEP. Goal Time Frame: 4-6 Weeks Goal Progress: Goal Met Goal 2:: STG: Pt. to have increased PROM of R knee to 0-0-120deg. Goal Time Frame: 2-4 Weeks Goal Progress: Goal Met Goal 3:: LTG: Pt. to have R knee AROM of 0-0-120deg without increase in symptoms. Goal Time Frame: 6-8 Weeks Goal Progress: Goal Met Goal 4:: STG: Pt. to have symmetrical girth of B knees. NEW GOAL 10/23: Pt. to have equal strength between bilateral LEs Goal Time Frame: 4-6 Weeks Goal 5:: LTG: Pt. to ambulate without use of AD with normal gait pattern. Goal Time Frame: 6-8 Weeks Goal Progress: Progressing Goal 6:: LTG: Pt. to negotiate 1 flight of stairs with 1 HR with reciprocal pattern. Goal Time Frame: 6-8 Weeks Goal Progress: Progressing Anticipated Interventions Anticipated Interventions Patient/Client Instruction: Educate patient on: Condition, Plan of Care, Risk Factors and Benefits of Fitness Program For the Purpose of:: To foster healthy habits, To improve decision making, To facilitate caregiver knowledge, To improve self management, To prevent re- injury, To improve ability to perform tasks related to life management and To improve tolerance to ADL's Therapeutic Exercise to Include: Strength training, Power training, Balance training, Body mechanics, Postural training, Flexibilty training, Gait and locomotor training, Passive ROM and Active ROM For the Purpose of:: To decrease pain, To decrease swelling/inflammation, To increase ROM, To improve nutrient delivery to tissue, To increase oxygenation perfusion, To improve muscle performance and motor function, To improve ability to perform ADL's, To increase tolerance to activity/condition/position, To improve gait and locomotor functions, To improve health of tissue, To decrease soft tissue restriction and To increase flexibility/ROM Manual Therapy Techniques to Include: Mobilization and Soft tissue mobilization For the Purpose of:: To decrease pain, To decrease swelling/inflammation, To increase ROM, To improve nutrient delivery to tissue, To increase oxygenation perfusion and To improve muscle performance and motor function IF ES: Yes Cryotherapy (ice pack, ice massage): Yes Vasopneumatic device: Yes For the Purpose of:: To decrease pain, To decrease swelling/inflammation, To increase ROM, To improve nutrient delivery to tissue, To improve gait and locomotor functions, To improve health of tissue, To decrease soft tissue restriction and To increase flexibility/ROM Re-Evaluation Ending Re-evaluation ending: Please do not hesitate to contact me at [phone] by phone or if you have questions or concerns regarding this new plan of care! Sincerely, Denzel Reyes DPT
--- NOTE | 2022-11-26 16:10 | HP.PTDCSUM ---
Discharge Summary D/C summary: It has been my pleasure to treat MIRIAM BURTON referred by Dr. Jason Fritz DO, with the diagnosis of R TKA DOS: 07/30/22 for a total of 33 visit(s). Discharge Date: 11/26/22 Please see the following information for a summary of their discharge status. Subjective Subjective: Pt. reports being 85% better overall. Pt. pleased with his progress. Pt. reports no pain currently. Pt. reports being HEP compliant without issues. Pain R knee: Pain Intensity (Out of 10): 0 Overall Improvement % Improvement: 85 Objective Objective/Function: TU.02 sec MMT: RLE: knee: ext 40.1#, flexion 37.7#. L knee: ext 41.9#, flexion 35.1#. gait: pt. ambulates without AD, but has fairly good but has slight quad weakness during stance phase. STAIRS: normal pattern noted with reciprocal with no HR ROM: 0-0-121deg. Pt. is overall doing well. He is scheduled to have his other knee replaced later this year. Goals Goal 1:: LTG: Pt. to be I with HEP. Goal Progress: Goal Met Goal 2:: STG: Pt. to have increased PROM of R knee to 0-0-120deg. Goal Progress: Goal Met Goal 3:: LTG: Pt. to have R knee AROM of 0-0-120deg without increase in symptoms. Goal Progress: Goal Met Goal 4:: STG: Pt. to have symmetrical girth of B knees. NEW GOAL 10/23: Pt. to have equal strength between bilateral LEs Goal Progress: Goal Met Goal 5:: LTG: Pt. to ambulate without use of AD with normal gait pattern. Goal Progress: Goal Met Goal 6:: LTG: Pt. to negotiate 1 flight of stairs with 1 HR with reciprocal pattern. Goal Progress: Goal Met Plan Plan: Pt. will be Dc from PT at this point in time. D/C Information Discharge Comments: Pt. has met all of his goals with PT. Pt. is overall doing well. He has good ROM and improving strength. I talked to him about staying active and continue strengthening in preparation for his upcoming surgery. Pt. consents. Pt. DC from PT this date. d/c sentence: If there are questions or concerns regarding this patient's physical therapy, please feel free to call me at [phone]. Thank you for the referral of this patient. Sincerely, CHAPARRITA StoneT Balance/Gait/Functional tests Balance/Special Test Scores Lower Extremity Functional Score: 66 TUG Test Time Seconds: 8.02 Tug Test: <10 sec.=free mobile WOMAC Total Score: 2 WOMAC Percentage: 97.7300
== END 2022-11-26 19:00 | disposition home or self-care (01) ==
LOC: PT 11:00
PROVIDERS: PCP Family Medicine; Referring Provider Orthopaedic Surgery; Visit Provider Orthopaedic Surgery
DX: Z47.1 Aftercare following joint replacement surgery (principal); Z96.651 Presence of right artificial knee joint; M17.11 Unilateral primary osteoarthritis, right knee
CPT/HCPCS: 97016; 97110; 97161; 97164

== ENCOUNTER → 2022-12-04 | Outpatient (CLI) | payer OTHER, SELFPAY ==
--- NOTE | 2022-12-04 13:38 | CT_ITS ---
PROCEDURE: CT LEFT KNEE WITHOUT CONTRAST REASON FOR EXAM: Male, 52 years old. Preoperative planning for the MakoPlasty Robotic knee surgery. Knee pain. TECHNIQUE: Transaxial CT of the hip, knee and ankle were obtained. Coronal and sagittal reconstruction images of the knee were provided. Individualized dose optimization techniques were used for this CT. COMPARISON: None. FINDINGS: Standard protocol for the preoperative planning for the MakoPlasty robotic knee surgery was performed. Mild arthrosis of the left hip, mild tricompartmental arthrosis of the hand mild arthrosis of the tibiotalar joint. Separate ossicles for the medial malleolus. CT/Extremity Lower without Contra IMPRESSION: Preoperative MakoPlasty Robotic knee surgical CT evaluation with findings as described above. Electronically Signed: Julio Duran MD at 15:26 EDT ,
== END | disposition home or self-care (01) ==
LOC: CT 13:38
PROVIDERS: PCP Family Medicine; Referring Provider Orthopaedic Surgery; Visit Provider Orthopaedic Surgery
DX: M17.12 Unilateral primary osteoarthritis, left knee (principal)
CPT/HCPCS: 73700

== ENCOUNTER 2023-01-28 05:31 | Inpatient (IN) | payer OTHER, MEDICARE, SELFPAY ==
[2023-01-15 11:16] LABS: Absolute Lymphocyte Count 1.68 X10^3/uL (0.83-4.51); Absolute Neutrophil Count 3.6 X10^3/uL (2.0-7.7); Basophil# 0.04 X10^3/uL; Basophil% 0.7 % (0-1); Eosinophil# 0.17 X10^3/uL; Eosinophils% 2.8 % (0-5); Hematocrit 44.8 % (40-54); Hemoglobin 14.6 g/dL (13.0-16.5); Lymphocyte # 1.68 X10^3/ul (0.83-4.51); Lymphocyte % 27.8 % (19-41); Mean Corp Hgb Conc 32.6 g/dL (32-36); Mean Corpuscular Hgb 29.9 pg (27.0-32.0); Mean Corpuscular Volume 91.8 fL (80-94); Mean Platelet Vol. 10.5 fl (6.2-12.0); Monocyte# 0.52 X10^3/uL; Monocyte% 8.6 % (0-10); NRBC Flagged by Analyzer 0 % (0-5); Neutrophil # 3.61 X10^3/uL (2.7-7.7); Neutrophil % 59.8 % (47-70); Platelet Count 207 K/mm3 (150-450); RBC Distribution Width CV 13.2 % (11.6-14.6); RBC Distribution Width SD 44.1 fl (35.1-43.9); Red Blood Count 4.88 M/mm3 (4.6-6.2)
[2023-01-15 11:26] LABS: Partial Thromboplast Time 25.4 Seconds (24.1-36.2); Prothrombin Time (Protime)PT. 12.7 SECONDS (11.7-14.9)
[2023-01-15 11:40] LABS: Anion Gap 2 (5-15); BUN 20 mg/dL (7-18); BUN/Creat Ratio 19.4 RATIO (10-20); Calcium,Total 8.9 mg/dL (8.5-10.1); Chloride 110 mmol/L (98-107); Creatinine, Serum 1.03 mg/dL (0.70-1.30); EST Glomerular Filtration Rate 80 mL/min (>60); Est Glom Filt Rate - Afr Amer 97 mL/min (>60); Glucose 110 mg/dL (74-106); Potassium 4.3 mmol/L (3.5-5.1); Sodium Level 142 mmol/L (136-145)
[2023-01-15 11:40] LABS: Magnesium 2.2 mg/dL (1.6-2.6)
[2023-01-15 11:46] LABS: Hemoglobin A1c 5.1 % (3.8-5.6)
[2023-01-16 05:07] LABS: Fructosamine 172 umol/L (0-285)
[2023-01-28] VITALS (11 sets, daily range): BP systolic 118–146; BP diastolic 70–100; PULSE 43–70; RESP 16–18; TEMP 36.3–37.2; O2SAT 94–100; BMI 40.4
[2023-01-28] MEDS: Lactated Ringers 1,000 ML 15 ML IV (06:25)
[2023-01-28] MEDS: Magnesium 1 GM over 15 mins IV (06:26)
[2023-01-28] MEDS: Scopolamine 1mg/72hr Patch 1 PATCH TD (06:26)
[2023-01-28] MEDS: Gabapentin 600 MG Tablet PO (06:27)
[2023-01-28] MEDS: Acetaminophen 500 MG Tablet 1000 MG PO ×3 (06:27→20:11)
[2023-01-28] MEDS: Celecoxib 200 MG Capsule 400 MG PO (06:27)
[2023-01-28 06:59] LABS: Bedside Glucose 81 mg/dL (74-106)
--- NOTE | 2023-01-28 07:07 | PCM.HP.BLA ---
History and Physical Date of Admission: 01/28/23 [facility] [address] [place] [address] OFFICE VISIT Date of Service: 11/13/22 MR#: [id number] Acct: [id number] Name: MIRIAM BURTON Rep #: [id number] : 1970 Provider: Dr. Jason Fritz DO Age/Sex: 52/M Location: [facility] [place] Status: Signed Intake Vital Signs 09/18/2311:34 11/13/2309:01 Height 5 ft 9 in 5 ft 9 in Weight: 262 lb BMI 38.7 Intake Visit Reasons: LEFT KNEE Chief Complaint: left knee Accompanied by: Self Is patient in pain?: Yes Pain scale (1-10): 2 Allergies olmesartan medoxomil [From Benicar] Allergy (Verified 11/01/22 11:24) Itching Medications calcium citrate 315 mg-vitamin D3 5 mcg (200 unit) tablet (Calcium Citrate + D) 2 tab PO QHS SUPPLEMENT 04/25/20 [History Confirmed 11/13/22] multivitamin 2 cap PO DAILY SUPPLEMENT 04/25/20 [History Confirmed 11/13/22] amlodipine 5 mg tablet 5 mg PO DAILY BP 08/04/20 [History Confirmed 11/13/22] mecobalamin (vitamin B12) 1,000 mcg disintegrating tablet,sublingual 1,500 mcg sublingual DAILY SUPPLEMENT 08/04/20 [History Confirmed 11/13/22] metoprolol succinate 25 mg tablet,extended release 24 hr 25 mg PO DAILY BP 08/04/20 [History Confirmed 11/13/22] pantoprazole 20 mg tablet,delayed release (Protonix) 40 mg PO DAILY GERD 01/29/21 [History Confirmed 11/13/22] celecoxib 200 mg capsule (Celebrex) 200 mg PO DAILY PAIN 05/23/21 [History Confirmed 11/13/22] cholecalciferol (vitamin D3) 10 mcg (400 unit) capsule (Vitamin D3) 10 mcg PO DAILY SUPPLEMENT 01/08/22 [History Confirmed 11/13/22] magnesium 1 tab PO QHS SUPPLEMENT 01/08/22 [History Confirmed 11/13/22] gabapentin 100 mg capsule 100 mg PO BID PAIN 02/11/22 [History Confirmed 11/13/22] tadalafil 20 mg tablet 20 mg PO DAILY PRN Erectile Dysfunction 02/11/22 [History Confirmed 11/13/22] aspirin 81 mg tablet,delayed release (Adult Aspirin Regimen) 81 mg PO DAILY 10/02/22 [History Confirmed 11/13/22] tramadol 50 mg tablet 50 mg PO BID 10/02/22 [History Confirmed 11/13/22] COUNT INCLUDES THE [facility] Medical History Acute bronchitis, unspecified Alcohol use Arthritis Arthritis Back pain Back pain Chronic wound of extremity Contact with and (suspected) exposure to other viral communicable diseases CPAP (continuous positive airway pressure) dependence CPAP (continuous positive airway pressure) dependence Degenerative disc disease Diabetes Disorder of uvula DVT (deep venous thrombosis) Gastric reflux GERD (gastroesophageal reflux disease) Hay fever Hemorrhoids History of deep vein thrombosis History of diabetes mellitus History of echocardiogram History of hemorrhoids History of steroid therapy History of stress test HTN (hypertension) Hypertension Hypertension Kidney stones Knee pain Lab test negative for COVID-19 virus Leg cramps Obesity (BMI 35.0-39.9 without comorbidity) Obstructive sleep apnea 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 Shoulder pain Sleep apnea Traumatic open wound of right lower leg 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 Wears glasses Surgical History Deviated septum H/O foot surgery H/O hernia repair H/O knee surgery H/O shoulder surgery History of arthroscopic knee surgery History of gastric restrictive surgery History of shoulder surgery History of surgical removal of ganglion cyst History of tonsillectomy History of tonsillectomy History of umbilical hernia repair Hx of colonoscopy hx of gastric sleeve Family History Other Breast cancer Social History Smoking Status: Current every day smoker tobacco type: cigars alcohol intake: current alcohol intake frequency: holidays/special occasions only HPI LEFT KNEE Details: Parts of this documentation were recorded by a scribe, this documentation accurately reflects the service provided and the decisions made by me, Dr. Jason Fritz, DO 11/13/22 0751. MIRIAM BURTON is a 52 year old M here today for left knee pain that he has had for over 2 years. He last had Euflexxa injections in 02/2022 which was helpful maybe until 04/2022 then his pain returned. His last steroid injection was in the left knee and this was done in 06/2021. He doesn't feel that the steroid injection is helpful for very long and the Euflexxa didn't help very long. Left knee pain is over the anterior knee and medial knee. Denies any mechanical knee pain. He does have some clicking in the knee that is not painful. He has tried an cast associate knee brace for the knee which is not helpful. He wants to discuss TKA. He had a right MAURICIO 09/17/22 and he states that his right knee is doing very well and his left knee would feel like his right knee he would be satisfied. Ortho Exam General General: Yes no acute distress Neurologic: Yes alert and Yes oriented x3 Psychologic: Yes reasonable and appropriate Right Knee Patella Translation: 1 Left Knee Skin/Wound: Yes CDI, No ecchymosis, No erythema and No swelling Homans Sign: No Knee ROM: Yes ROM-Extension -20 to 0 and No ROM-Flexion 0-140 (118) Examination: Yes med jt line tenderness Stability: NML: Anterior Drawer, NML: Posterior Drawer and NML: Varus 30 and 1+: Valgus 30 (4mm medial gapping valgus stress) Patella Translation: 1 KNEE: no joint effusion 4mm medial gapping valgus stress swelling to lower legs Head: Normocephalic Atraumatic Chest: symmetrical rise, non-labored breathing, no audible wheeze Abdomen: no guarding, non-rigid Supplemental Info 09/06/2022 x-ray right knee: Status post total knee arthroplasty with good interfaces and position no concern 05/30/2022 x-ray right knee: Advanced knee arthrosis [id number] medial compartment there is spurring noted in the lateral compartment and patellofemoral joint with subchondral cyst of the patella, varus deformity 05/30/2022 x-ray left knee: Lezo-ik-chrs medial compartment varus deformity moderate spurring patellofemoral compartment mild lateral Coding Level of Care Code Off vis,est,level 3 Diagnoses Primary osteoarthritis of left knee M17.12 Osteoarthritis type: primary Assessment and Plan Assessment and Plan (1) Left knee DJD: Status: Acute Qualifiers: Osteoarthritis type: primary Qualified Code(s): M17.12 - Unilateral primary osteoarthritis, left knee Plan Patient edcuated that he has advanced OA of the left knee. Treatment options are do nothing or PT or bracing or steroid injection or Euflexxa injections or TKA. He has tried and failed all conservative care and wishes to proceed with left TKA. Risks, benefits and alternatives of surgery reviewed including but not limited to bleeding, infection, nerve, artery and/or tissue damage, fracture, VTE, mechanical feel of the knee, continued pain, stiffness and expected post-operative course.?Reviewed the pre-operative plans with the patient. Risks and benefits of the procedure were fully explained, including but not limited to infection, neurovascular injury, continued pain, arthritis, stiffness, need for further surgery, re-injury, DVT, PE, general risks of anesthesia, and loss of limb or life. The patient understands all the risks and does wish to proceed with written consent for left knee total knee arthroplasty robotic assisted. He wishes to proceed with IOVERA tx as well. He wishes to proceed with surgery 01/21/23 for the left TKA. Tentative surgery date 01/21/2023. Of note patient required 3-day stay visit last surgery secondary to pain control he is on tramadol I did tell him I want him to stop the tramadol for 6 weeks preoperatively however I think he should be admitted for this surgery. In addition I request he stop the Celebrex and aspirin for 7 days preoperatively. Follow up for IOVERA tx or sooner if pain, swelling, numbness or associated symptoms, or concerns develop. All questions answered. Patient in agreement of plan. Plan Details Goals & Barriers: Goals Decrease pain Decrease spasm Decrease inflammation Target Due Date 01/08/22 Barriers DDD Anterolisthesis L5/S1 Dextroscoliosis 11/13/22 7554 <Electronically signed by Jason Fritz DO> Date Jason Fritz DO Cosigner Signature: Date (if applicable) CC: ~ I have examined the patient and the H&P has been reviewed. There are no clinical changes since date of exam.
[2023-01-28] MEDS: Cefazolin 3 GM in 0.9% Normal Saline (100mL Bag) 100 ML IV (07:25)
--- NOTE | 2023-01-28 07:30 | KNEE_PTH ---
PATIENT: MIRIAM BURTON LOC: [facility] U#:[id number] AGE/SX: 52/M ROOM: OH313 RE01/28/[address]: Dr. Jason Fritz DO : 1970 BED: 1 DIS: 01/31/2023 SPEC #: [id number] RECD: 01/28/23 15:02 STATUS: MARYA FERNANDOJerry #: [id number] NOE: 01/28/23 07:[address]: Jason Fritz DEPT: SURGICAL PATHOLOGY RECD BY: Christy Balbuena ENTERED: 01/29/23 10:43 SP TYPE: TOTAL KNEE OTHR DR: MD Dr. Renzo Rincon, Tissues: Knee, NOS Procedures: Decalcification bone/plaque Surgery Specimen Level IV HEADER OPERATION: ERAS, total knee arthroplasty robotic assisted PRE-OP DIAGNOSIS: Primary osteoarthritis of left knee TISSUE SUBMITTED: Left knee bone and tissue MICROSCOPIC DIAGNOSIS Bone and tissue of left knee, total knee resection: Severe degenerative joint disease. AM:ashley 02/03/2023 MICROSCOPIC DESCRIPTION Slides are reviewed. GROSS DESCRIPTION Received is one container designated bone and soft tissue left knee. The specimen consists of multiple fragments of larios-yellow bone measuring in aggregate 10.0 x 10.0 x 2.5 cm. No soft tissue is identified. A number of bony fragments contain articular surfaces consistent with tibial plateau and femoral condyle and displaying prominent osteophyte formation, eburnation and bone erosion. [employer] sections from bone is submitted in one cassette after decalcification. / SJ:ashley 01/29/2023 TC:5 CPT: 26640, 20258
[2023-01-28] MEDS: TXA 1000mg in NS100 100ml (IVPB at Incision) 660 MG IV (07:48)
[2023-01-28] MEDS: Epinephrine (1 mg/ml) 1 MG/ML VIAL (08:12)
[2023-01-28] MEDS: 0.9% Normal Saline (Pres. free 10 ML Vial (08:12)
[2023-01-28] MEDS: Bupivacaine 0.5% PF 10 ML VIAL (08:12)
[2023-01-28] MEDS: dexAMETHasone 4 MG/ML Vial (08:12)
[2023-01-28] MEDS: TXA 1000mg in NS100 100ml (IVPB at Closure) 660 MG IV (08:18)
[2023-01-28] MEDS: dexAMETHasone 10 MG/ML Vial IV (08:40)
--- NOTE | 2023-01-28 10:06 | PCM.OP.BLANK ---
Operative Report Date of Procedure: 01/28/23 Preoperative diagnosis: Left knee DJD Postoperative diagnosis: Same Procedure: Left total knee arthroplasty CT guided Robotic Assisted Implant: Rei triathlon press fit, femoral component size 4, tibial baseplate size 4, asymmetric patella size 35 cemented, polyethylene X3 size 9 CS Anesthesia: Spinal with adductor canal block Tourniquet time: 12 minutes at 300 mmHg Complications: None Condition: Stable to PACU Estimated blood loss: 200 cc Holistic Nutritionist Ezequiel Munroe. My physician cardiovascular physician assistant was a vital part of this case. He was important in appropriate retraction during the case, and protection of soft tissues during procedure. His intimate knowledge of the case and my steps aided in safe and expedient completion of the procedure as well as appropriate position of the extremity during the case. He was also vital in assisting with closure under my direct supervision. Indication for procedure: This is a 70-year-old female with long standing degenerative joint disease of the knee who has failed conservative treatment and wished to proceed with elective total knee arthroplasty. Risk benefits and alternatives were reviewed including; risk of bleeding, infection, nerve artery and tissue damage, continued pain, postoperative stiffness, venous thromboembolism, need for postoperative rehabilitation, mechanical feel to the knee, and expected postoperative course. The pre- operative CT and templating was performed with component sizing. Procedure: The patient was met in the preoperative holding area. The operative extremity was identified by both patient and physician and was marked. Patient was met by anesthesia. An adductor canal block was placed by anesthesia postoperatively the patient was brought back to the operating room on a wheeled cart and transferred to the operating table in the supine position. Anesthesia was started. A well-padded tourniquet was placed on the operative extremity. The patient was prepped and draped in the usual sterile fashion. A timeout was called to ensure the proper patient procedure and extremity were being contemplated. An esmarch was used to exsanguinate the extremity. The tourniquet was inflated. A 10 blade scalpel was used to make a midline incision down through the skin and subcutaneous tissue. Skin retractors placed. Bovie and Aquamantis were used to perform meticulous hemostasis. full-thickness flaps were elevated medial and lateral along the joint capsule. A deep blade scalpel was used to perform a medial parapatellar arthrotomy. The knee was brought to full extension. A bovie was used to release the soft tissues off the most proximal aspect of the medial tibial plateau, a three-quarter inch curved osteotome was also used in this process. The infrapatellar fat pad was excised. The suprapatellar fat pad was excised partially anteriorolateraly and portion the anterioromedial pad was elevated from the femur. At this point our intra-articular femoral array was placed at a 45 degree angle proximal and posterior to the medial epicondyle. femoral checkpoint was placed at this time. Our tibial array was placed greater than 1 hands breath below the incision at a 20 degree angle stab incisions were made with a 15 blade scalpel and pins were placed and attached to the tibial array , tibial checkpoint was placed in the proximal tibial metaphysis. Tourniquet was let down. At this point registration holloway were taken throughout the knee . Once the knee was registered we then tensioned the medial and lateral ligaments in extension and 90 degrees of flexion. We then used these numbers to adjust our components within parameters to balance the knee in both flexion and extension once this was done on our monitor we then proceeded with using the robotic arm to make our tibial plateau cut, anterior and posterior chamfer and distal femur cuts. we removed the cut fragments with the use of a bovie and Shanell, we did use a lamina manager culinary to insure we visualized and removed all posterior osteophytes and at this time also used the Aquamantis on the posterior joint capsule. we then trialed and achieved the desired plan with a well-balanced knee. we used the green probe to lily the corresponding tibial rotation based on our CT template. Lug holes were drilled in the femur the tibia preparation was completed with the appropriate sized base plate pinned based on previous rotation lily. An appropriate sized fin punch was used on the tibia and 4 corner drill was used for the press fit component and the patella was prepared by first using a caliper to ensure sufficient bone stock and a patellar reamer to remove the desired amount of bone. lug holes drilled for an asymmetric poly. We then brought the knee through range of motion with excellent patellar tracking. We thoroughly irrigated the knee. Trial components were removed a posterior capsular injection was preformed with our standard cocktail. In addition the aqua Mantis was also used to aid in hemostasis. Betadine rinse was allowed to sit and washed out completely. Components were press-fit into place. Patient had very sclerotic bone and the trial patella sit flush however when press fitting the patellar component the lateral side would not seat fully after multiple attempts the implant was removed was overdrilled with a sclerotic reamer and the implant still would not sit flush using a cementing clamp to help press the component the component was scuffed at this point it was determined to remove the press-fit component and replace it with a cemented polyethylene component this was performed in the usual fashion and the component sit flush against the bone surface. Aricept rinse was then used followed by several more liters of irrigation after it was allowed to sit. The joint capsule was closed with #1 Ethibond [id number] followed by Vicryl in the subcutaneous tissues with dalton in the skin. Arrays and checkpoints were removed prior to closure all counts were correct stab incisions were closed with a staple standard dressing in the form of Mepilex AG for the main incision and a small Mepilex over the pin holes. Thigh-high SANA hose applied over top of dressing. Patient tolerated the procedure well and was directed to PACU in stable condition . There were no intraoperative complications.
--- NOTE | 2023-01-28 10:35 | RAD_ITS ---
STUDY: X-RAY - LEFT KNEE REASON FOR EXAM: Male, 52 years old. Post op -- AP and Lateral x-ray of operative knee in PACU TECHNIQUE: 2 view(s) of the knee. COMPARISON: None. FINDINGS: Normal visualized distal femur. Normal visualized proximal tibia and fibula. Normal proximal tibiofibular articulation. The patient is status post total knee replacement. There is good alignment. Postoperative soft tissue changes. RAD/Knee 1 or 2 Views IMPRESSION: Status post left total knee replacement. There is good alignment. Postoperative soft tissue changes. Electronically Signed: Thor Garcia MD at 11:17 EDT ,
[2023-01-28] MEDS: Lactated Ringers 1,000 ML 125 ML IV ×2 (11:16→14:09)
[2023-01-28] MEDS: oxyCODONE 5 MG Tablet PO ×3 (12:02→21:34)
[2023-01-28] MEDS: Ketorolac 30 MG/ML Syringe IV (14:08)
[2023-01-28] MEDS: Cefazolin 2 GM in 0.9% Normal Saline (100mL Bag) 100 ML IV ×2 (14:12→21:35)
[2023-01-28] MEDS: Gabapentin 100 MG Capsule PO (20:11)
[2023-01-28] MEDS: Calcium Carb/Vitamin D 1 TABLET Tablet 2 TABLET PO (20:11)
[2023-01-28] MEDS: Senna/Docusate Sodium 1 Tablet 2 TABLET PO (20:12)
[2023-01-28] MEDS: 0.9% Normal Saline (250mL Bag) 250 ML 15 ML IV (23:40)
[2023-01-29] VITALS (7 sets, daily range): BP systolic 139–167; BP diastolic 80–95; PULSE 58–76; RESP 18–20; TEMP 36.6–37.2; O2SAT 97–100
[2023-01-29] MEDS: oxyCODONE 5 MG Tablet PO ×5 (05:39→18:09)
[2023-01-29] MEDS: Acetaminophen 500 MG Tablet 1000 MG PO ×3 (05:40→20:56)
[2023-01-29] MEDS: Cefazolin 2 GM in 0.9% Normal Saline (100mL Bag) 100 ML IV (05:41)
[2023-01-29 07:20] LABS: Hematocrit 40.3 % (40-54); Hemoglobin 13.8 g/dL (13.0-16.5); Mean Corp Hgb Conc 34.2 g/dL (32-36); Mean Corpuscular Hgb 30.7 pg (27.0-32.0); Mean Corpuscular Volume 89.8 fL (80-94); Mean Platelet Vol. 10.9 fl (6.2-12.0); Platelet Count 220 K/mm3 (150-450); RBC Distribution Width SD 42.3 fl (35.1-43.9); Red Blood Count 4.49 M/mm3 (4.6-6.2); White Blood Count 14.5 K/mm3 (4.4-11.0)
[2023-01-29 07:50] LABS: Anion Gap 6 (5-15); BUN 19 mg/dL (7-18); Calcium,Total 8.8 mg/dL (8.5-10.1); Chloride 108 mmol/L (98-107); Creatinine, Serum 1.12 mg/dL (0.70-1.30); EST Glomerular Filtration Rate 72 mL/min (>60); Est Glom Filt Rate - Afr Amer 88 mL/min (>60); Glucose 151 mg/dL (74-106); Potassium 4.1 mmol/L (3.5-5.1); Sodium Level 138 mmol/L (136-145)
--- NOTE | 2023-01-29 07:55 | PCM.PN.ORT ---
Subjective Subjective Seen and examined. Complain of pain in left knee. Denies fever chills nausea vomiting shortness of breath or chest pain Objective Data Objective Data Vital Signs: Vital Signs Temp Pulse Resp BP Pulse Ox O2 Del Method O2 Flow Rate 98.0 F 58 L 18 147/80 H 99 Room Air 2 01/29/23 05:52 01/29/23 05:52 01/29/23 05:52 01/29/23 05:52 01/29/23 05:52 01/29/23 05:52 01/28/23 18:47 Oxygen Flow Rate (L/min) 2 Oxygen Delivery Method Room Air Weight: 273 lb 13.026 oz Body Mass Index (BMI) 40.4 Intake & Output: Intake and Output for Last 24 Hours 01/27/23 01/28/23 01/29/23 23:59 23:59 23:59 Intake Total 5317.42 / 5317.42 1480 / 1480 Output Total 1625 / 1625 625 / 625 Balance 3692.42 / 3692.42 855 / 855 Lab / Micro Data 01/29/23 06:50 01/29/23 06:50 Labs: Laboratory Results - last 24 hr 01/29/23 06:50: WBC 14.5 H, RBC 4.49 L, Hgb 13.8, Hct 40.3, MCV 89.8, MCH 30.7, MCHC 34.2, RDW Std Deviation 42.3, RDW Coeff of Cristian 13.0, Plt Count 220, MPV 10.9, Sodium 138, Potassium 4.1, Chloride 108 H, Carbon Dioxide 24.0, Anion Gap 6, BUN 19 H, Creatinine 1.12, Estim Creat Clear Calc 75.40, Est GFR (MDRD) Af Amer 88, Est GFR (MDRD) Non-Af 72, BUN/Creatinine Ratio 17.0, Glucose 151 H, Calcium 8.8 Micro: Microbiology 01/15/23 11:02 Swab (Method) Nasal Screen MRSA/MSSA - Final Radiography Diagnostic Testing: Radiology Impression Knee X-Ray 01/28/23 10:35 IMPRESSION: Status post left total knee replacement. There is good alignment. Postoperative soft tissue changes. Electronically Signed: Thor Garcia MD at 11:17 EDT , Physical Exam Const alert and oriented x3 General Appearance: cooperative Extremity Extremity Narrative: Dressing clean dry intact compartment soft neurovascular intact EHL tibialis anterior gastrocsoleus intact sensation light touch 2/4 pedal pulse Assessment & Plan Assessment/Plan (1) S/P total knee arthroplasty: QUALIFIERS: Laterality: left Qualified Code(s): Z96.652 - Presence of left artificial knee joint PLAN: Plan Postop day #1 left total knee arthroplasty PT OT weightbearing as tolerated work on stairs as patient requires 11 stairs at home DVT prophylaxis SCDs SANA hose Eliquis 2.5 mg twice daily for 14 days postop Pain control oxycodone 5 to 10 mg every 4 hours as needed pain Tylenol 1000 mg every 8 hours DC planning home tomorrow
--- NOTE | 2023-01-29 07:58 | DCINST_ITS ---
Discharge Instructions Diet Discharge Diet: No restrictions Dressing / Incision Call your doctor if you observe: Shortness of breath and Chest pain Additional Dressing/Incision Instructions:: Ice and elevate lower extremities 2 weeks while not ambulating. Ambulation is encouraged. Weight bearing as tolerated. Use assistive devise for stability. Encourage FULL knee extension and flexion 1 time EVERY time you get up and down and MULTIPLE times per day. No showering 72 hours after surgery. Begin showering postop day #3. Remove the dressing prior to shower and gently wash with warm water and antibacterial soap then pat dry and place abdominal pad (or plain gauze) and SANA hose over top. This is to be done daily. Do not submerge for 3 weeks. If not showering daily after the initial 72 hours then you must clean incision and change dressing daily. Do not allow animals near the incision area. Keep clean. Follow anti- coagulation recommendations as prescribed. Do not take any NSAIDs while on blood thinner. Do not take any additional narcotic pain medication other than what was prescribed on your surgery day without discussing with physician. Narcotic medication can be addictive. Do not drink alcohol while taking narcotics. Supplement narcotic prescription with acetaminophen 1000 mg 4 times a day. Start physical therapy. If you are not currently scheduled for physical therapy or you are unsure of appointment time please call office [facility] to arrange. Call Dr. Fritz with any concerns. Follow Up Care Please Follow Up With: Jason Fritz DO When: 2 weeks Test Results: Test results from this visit will be discussed in further detail at your follow- up appointment, if applicable. Discharge Plan Admission Admit Date/Time: 01/28/23 05:31 Primary Reason for Your Visit: Left total knee arthroplasty Attending Provider: Jason Fritz Primary Care Provider: Renzo Beatty Consulting Providers: Mayco Clarke Discharge Orders/Prescriptions Prescriptions: New Eliquis 2.5 mg tablet 2.5 mg PO BID Qty: 28 0RF acetaminophen [acetaminophen] 500 mg tablet 1,000 mg PO Q6H PRN Qty: 100 0RF oxycodone 5 mg tablet 5 - 10 mg PO Q4H PRN (Reason: pain) 7 Days Qty: 60 0RF Continued calcium citrate-vitamin D3 [Calcium Citrate + D] 315 mg-5 mcg (200 unit) tablet 2 tab PO QHS multivitamin capsule 2 cap PO DAILY mecobalamin (vitamin B12) 1,000 mcg tablet,disintegrating 1,500 mcg SL DAILY Rx Instructions: place tablet under tongue and allow to dissolve for at least30 secs before swallowing amlodipine 5 mg tablet 5 mg PO DAILY metoprolol succinate 25 mg tablet extended release 24 hr 25 mg PO DAILY pantoprazole [Protonix] 20 mg tablet,delayed release (DR/EC) 40 mg PO DAILY gabapentin 100 mg capsule 100 mg PO BID cholecalciferol (vitamin D3) [Vitamin D3] 10 mcg (400 unit) Capsule 10 mcg PO DAILY magnesium Tablet 1 tab PO QHS Held aspirin [Adult Aspirin Regimen] 81 mg tablet,delayed release (DR/EC) 81 mg PO DAILY Hold Instructions: Resume on 02/12/23. celecoxib [Celebrex] 200 mg Capsule 200 mg PO BID Hold Instructions: Resume on 02/28/23. While taking anti-coagulant Discontinued tramadol 50 mg tablet 50 mg PO BID Referrals / Follow Up: Renzo Beatty DO [Primary Care Provider] -
[2023-01-29] MEDS: Gabapentin 100 MG Capsule PO ×2 (08:30→20:55)
[2023-01-29] MEDS: Metoprolol(XL)Succ 25 MG Tablet PO (08:30)
[2023-01-29] MEDS: Senna/Docusate Sodium 1 Tablet 2 TABLET PO ×2 (08:30→20:55)
[2023-01-29] MEDS: Pantoprazole Sodium 20 MG Tablet 40 MG PO (08:30)
[2023-01-29] MEDS: amLODIPine 5 MG Tablet PO (08:31)
[2023-01-29] MEDS: APIXABAN 2.5 MG TABLET (WCH) PO ×2 (09:44→20:55)
[2023-01-29] MEDS: 0.9% Saline Lock 10 ML Syringe IV ×3 (09:44→20:59)
--- NOTE | 2023-01-29 11:00 | CASEMGMT ---
GEO ADAMS Assessment: Face to Face with pt for initial transition planning/care coordination assessment. RN ANGIE introduced self and role at [facility], pt voices understanding and consents to assessment. Pt is A&O x4 and answers all questions appropriately at this time. Pt lying in bed with CPAP on in no distress. Care providers, pharmacy, and demographics verified/updated. Admitting Dx: left total knee arthroplasty robotic assisted PCP:Jaci Specialists:Lam, ortho; Madyson, pain mgmt; Franco ortho Preferred Pharmacy: [facility] Retail Insurance: [employer] [facility], [facility] A Prescription Benefit: yes LNOK: Irene Uribe, Living Arrangements: Pt lives with in a split level home with 11 steps to enter to the main floor. Pt reports he is typically I in ADL's and denies concerns at home. Transportation: Pt drives self and denies concerns with transportation. States pt can transport when it fits outside of her work schedule. Also discussed using the [facility] van for transportation to [facility] therapy. DME:gait belt, FWW, walk in shower, CPAP, sock aid, quad cane, shower chair HHC/SNF: Pt denies hx of Pt states no concerns with going home at time of dc. He has therapy set up at [facility] to start on Friday. Pt states no further concerns/needs. CM to follow. Advised pt to ask CM if any further question/concerns/needs arise, voices understanding. TC to [facility] Retail pharmacy, pt cost of eliquis is $20. Pt Goal: Home with outpt therapy already set up Plan: Home with outpt therapy already set up
[2023-01-29] MEDS: Ketorolac 30 MG/ML Syringe IV (13:22)
--- NOTE | 2023-01-29 13:45 | NURSING ---
pt updated i am setting my clock so i know when i get my pain medication next. educated on pain management/safety pt states he is aware of risks/ramifications/pain management and i am setting my clock
[2023-01-29] MEDS: Calcium Carb/Vitamin D 1 TABLET Tablet 2 TABLET PO (20:56)
[2023-01-30] VITALS (8 sets, daily range): BP systolic 140–173; BP diastolic 80–102; PULSE 54–67; RESP 16–20; TEMP 36.6–37.2; O2SAT 100
[2023-01-30] MEDS: oxyCODONE 5 MG Tablet PO ×6 (01:30→21:56)
[2023-01-30 05:59] LABS: Hematocrit 38.7 % (40-54); Hemoglobin 12.5 g/dL (13.0-16.5); Mean Corp Hgb Conc 32.3 g/dL (32-36); Mean Corpuscular Hgb 29.4 pg (27.0-32.0); Mean Corpuscular Volume 91.1 fL (80-94); Mean Platelet Vol. 11.1 fl (6.2-12.0); Platelet Count 198 K/mm3 (150-450); RBC Distribution Width CV 13.3 % (11.6-14.6); RBC Distribution Width SD 43.4 fl (35.1-43.9); Red Blood Count 4.25 M/mm3 (4.6-6.2); White Blood Count 8.5 K/mm3 (4.4-11.0)
[2023-01-30] MEDS: Acetaminophen 500 MG Tablet 1000 MG PO ×3 (06:21→21:57)
[2023-01-30] MEDS: Gabapentin 100 MG Capsule PO ×2 (07:50→21:56)
[2023-01-30] MEDS: Metoprolol(XL)Succ 25 MG Tablet PO (07:50)
[2023-01-30] MEDS: amLODIPine 5 MG Tablet PO (07:50)
[2023-01-30] MEDS: Senna/Docusate Sodium 1 Tablet 2 TABLET PO ×2 (07:51→21:57)
[2023-01-30] MEDS: Pantoprazole Sodium 20 MG Tablet 40 MG PO (07:51)
[2023-01-30] MEDS: APIXABAN 2.5 MG TABLET (WCH) PO ×2 (07:51→21:58)
[2023-01-30] MEDS: HYDROmorphone 0.5 MG/0.5 ML SYRINGE IV (10:46)
[2023-01-30] MEDS: 0.9% Saline Lock 10 ML Syringe IV (10:47)
--- NOTE | 2023-01-30 11:16 | CASEMGMT ---
Discharge Planning A list of?SNF?providers including quality and resource use data and consistent with the patient's preferred geographic region, medical needs, and insurance network was created in [facility] Guide.? This list was provided to the SW. Mikayla Mtz, Discharge Planning Asst.
--- NOTE | 2023-01-30 11:23 | CASEMGMT ---
Social Work SW met with pt to discuss advance directives.? Pt confirms he has completed a living will and health care POA naming his Irene Uribe.? Pt notified that documents are not on file at [facility] and SW requested they be brought in for scanning into the EMR.? SHAHEEN Wayne
--- NOTE | 2023-01-30 11:27 | CASEMGMT ---
Social Work SW spoke with ECHO TECHNOLOGIST regarding pt who is recommending SNF placement. SW met with pt and introduced self and role of SW. Pt is agreeable that he will need SNF placement prior to return home. A list of SNF providers including quality and resource use data and consistent with the patient?s preferred geographic region, medical needs, and insurance network were provided from the [facility] Guide. Pt preferred provider is [facility] TCU. Referral made to TCU and SW will await determination of acceptance. Pt will need precert prior to admission. Plan: TCU, pending acceptance and precert SHAHEEN Wayne
--- NOTE | 2023-01-30 14:25 | PCM.PN.ORT ---
Subjective Subjective Patient was seen and examined. He states that he is having difficulty keeping his pain under control especially with ambulation and working with PT. He has concerns about the 11 steps he has to do to get into his house. He denies nausea, vomiting, fevers, chills, shortness of breath or chest pain. Objective Data Objective Data Vital Signs: Vital Signs Temp Pulse Resp BP Pulse Ox O2 Del Method O2 Flow Rate 97.9 F 64 20 H 173/100 H 100 Room Air 2 01/30/23 13:39 01/30/23 13:39 01/30/23 13:39 01/30/23 13:39 01/30/23 13:39 01/30/23 13:39 01/28/23 18:47 Oxygen Flow Rate (L/min) 2 Oxygen Delivery Method Room Air Weight: 273 lb 13.026 oz Body Mass Index (BMI) 40.4 Intake & Output: Intake and Output for Last 24 Hours 01/28/23 01/29/23 01/30/23 23:59 23:59 23:59 Intake Total 5317.42 / 5317.42 2060.75 / 2060.75 300 / 300 Output Total 1625 / 1625 625 / 625 Balance 3692.42 / 3692.42 1435.75 / 1435.75 300 / 300 Lab / Micro Data 01/30/23 05:30 01/29/23 06:50 Labs: Laboratory Results - last 24 hr 01/30/23 05:30: WBC 8.5, RBC 4.25 L, Hgb 12.5 L, Hct 38.7 L, MCV 91.1, MCH 29.4, MCHC 32.3 D, RDW Std Deviation 43.4, RDW Coeff of Cristian 13.3, Plt Count 198, MPV 11.1 Micro: Microbiology 01/15/23 11:02 Swab (Method) Nasal Screen MRSA/MSSA - Final Physical Exam Const alert and oriented x3 General Appearance: cooperative Extremity Extremity Narrative: Upon inspection of the left knee there is a SANA hose over top of 2 clean, dry and intact dressings. He has soft compartments. Negative Homans. Intact sensation to light touch throughout left lower extremity. Neurologically intact. Palpable pedal pulses. Assessment & Plan Assessment/Plan (1) S/P total knee arthroplasty: QUALIFIERS: Laterality: left Qualified Code(s): Z96.652 - Presence of left artificial knee joint PLAN: Plan Postop day #2 left total knee arthroplasty PT/OT weightbearing as tolerated. Encouraged ambulation and AROM. DVT prophylaxis SANA Chou Eliquis 2.5 mg twice daily for 14 days postop Pain control oxycodone 5 to 15 mg every 4 hours as needed for pain. Discussed with his nurse that he should not get more than 15mg of oxycodone every 4 hours. Continue Tylenol 1000 mg every 8 hours DC to TCU pending acceptance and precert.
--- NOTE | 2023-01-30 14:50 | NURSING ---
resting in bed, cpap on. rates pain 4/10
--- NOTE | 2023-01-30 15:22 | CASEMGMT ---
Social Work Pt has been accepted at [facility] and precert has been started. Pt updated and agreeable to dc plan. SW spoke with Kun العراقي and updated on d/c plan. Dulce Maria agreeable. Plan: [facility], pending precert SHAHEEN Wayne
[2023-01-30] MEDS: Calcium Carb/Vitamin D 1 TABLET Tablet 2 TABLET PO (21:58)
[2023-01-31] MEDS: oxyCODONE 5 MG Tablet PO ×4 (02:06→14:34)
[2023-01-31 02:12] VITALS: BP 147/96; PULSE 69; RESP 18; TEMP 36.6; O2SAT 100
[2023-01-31] MEDS: Acetaminophen 500 MG Tablet 1000 MG PO ×2 (05:25→14:34)
[2023-01-31 06:47] LABS: Hematocrit 37.8 % (40-54); Mean Corp Hgb Conc 34.4 g/dL (32-36); Mean Corpuscular Volume 90.2 fL (80-94); Mean Platelet Vol. 10.6 fl (6.2-12.0); Platelet Count 184 K/mm3 (150-450); RBC Distribution Width CV 13.3 % (11.6-14.6); RBC Distribution Width SD 43.8 fl (35.1-43.9); Red Blood Count 4.19 M/mm3 (4.6-6.2); White Blood Count 7.6 K/mm3 (4.4-11.0)
[2023-01-31 08:37] VITALS: PULSE 84
[2023-01-31] MEDS: Senna/Docusate Sodium 1 Tablet 2 TABLET PO (08:37)
[2023-01-31] MEDS: Gabapentin 100 MG Capsule PO (08:37)
[2023-01-31] MEDS: Metoprolol(XL)Succ 25 MG Tablet PO (08:37)
[2023-01-31] MEDS: amLODIPine 5 MG Tablet PO (08:37)
[2023-01-31] MEDS: Pantoprazole Sodium 20 MG Tablet 40 MG PO (08:37)
[2023-01-31] MEDS: APIXABAN 2.5 MG TABLET (WCH) PO (08:38)
[2023-01-31 08:42] VITALS: BP 137/83; PULSE 84; RESP 18; TEMP 36.6; O2SAT 100
--- NOTE | 2023-01-31 10:11 | CASEMGMT ---
Social Work SW assisted pt with completing LW/POA, pt listed as POA. SW gave pt originals and copies of LW/POA, placed a copy on the chart also. MORALES Tee
--- NOTE | 2023-01-31 11:56 | PCM.TXEXTCAR ---
Diet Diet Order/Speech Therapy: 01/30/23 13:52 Diet: Consistent Carb - Calorie Controlled Food consistency:: Regular Liquid Consistency:: Regular/Thin Is pt able to select menu?: Yes How many daily calories?: 2000 calorie Wound(s) left leg: Wound Type: Surgical Incision Dressing Change: After 72 hours post-op Therapies Weight Bearing: Weight bearing as tolerated Extremity Affected:: Left Lower Physical Therapy: Eval and Treat Occupational Therapy: Eval and Treat Problem/Diagnosis (1) S/P total knee arthroplasty: Status: Acute Code(s): Z96.659 - Presence of unspecified artificial knee joint (2) Orthopedic aftercare: Status: Acute Code(s): Z47.89 - Encounter for other orthopedic aftercare (3) Other acute postprocedural pain: Status: Acute Code(s): G89.18 - Other acute postprocedural pain Plan Postop day #3 left total knee arthroplasty PT/OT weightbearing as tolerated. Encouraged ambulation and AROM. DVT prophylaxis SCDs, SANA otero, Eliquis 2.5 mg twice daily for 14 days postop Pain control oxycodone 5 to 15 mg every 4 hours as needed for pain. Discussed with his nurse that he should not get more than 15mg of oxycodone every 4 hours. Continue Tylenol 1000 mg every 8 hours DC to TCU pending acceptance and precert. Allergies/Procedures Done in Hospital Allergies olmesartan medoxomil [From Benicar] Allergy (Verified 01/28/23 13:16) Itching Type of Care/Length of Stay Estimated LOS: Convalescent Care Less Than 30 days Type of Care Needed: Skilled Rehab Potential: Good Prognosis: Good Dietary and Speech Recommendations Dietitian Recommendations/Changes: Will change diet to 2000 calorie/consistent carbohydrate. Follow Up Care Please Follow Up With: Jason Fritz DO When: 2 weeks post-op Discharge Plan Admission Admit Date/Time: 01/28/23 05:31 Primary Reason for Your Visit: Left total knee arthroplasty Attending Provider: Jason Fritz Primary Care Provider: Renzo Beatty Consulting Providers: Mayco Clarke Discharge Orders/Prescriptions Prescriptions: New Eliquis 2.5 mg tablet 2.5 mg PO BID Qty: 28 0RF acetaminophen [acetaminophen] 500 mg tablet 1,000 mg PO Q6H PRN Qty: 100 0RF oxycodone 5 mg tablet 5 - 10 mg PO Q4H PRN (Reason: pain) 7 Days Qty: 60 0RF Continued calcium citrate-vitamin D3 [Calcium Citrate + D] 315 mg-5 mcg (200 unit) tablet 2 tab PO QHS multivitamin capsule 2 cap PO DAILY mecobalamin (vitamin B12) 1,000 mcg tablet,disintegrating 1,500 mcg SL DAILY Rx Instructions: place tablet under tongue and allow to dissolve for at least30 secs before swallowing amlodipine 5 mg tablet 5 mg PO DAILY metoprolol succinate 25 mg tablet extended release 24 hr 25 mg PO DAILY pantoprazole [Protonix] 20 mg tablet,delayed release (DR/EC) 40 mg PO DAILY gabapentin 100 mg capsule 100 mg PO BID cholecalciferol (vitamin D3) [Vitamin D3] 10 mcg (400 unit) Capsule 10 mcg PO DAILY magnesium Tablet 1 tab PO QHS Held aspirin [Adult Aspirin Regimen] 81 mg tablet,delayed release (DR/EC) 81 mg PO DAILY Hold Instructions: Resume on 02/12/23. celecoxib [Celebrex] 200 mg Capsule 200 mg PO BID Hold Instructions: Resume on 02/28/23. While taking anti-coagulant Discontinued tramadol 50 mg tablet 50 mg PO BID Referrals / Follow Up: Renzo Beatty DO [Primary Care Provider] - (1) S/P total knee arthroplasty Qualifiers: Laterality: left Qualified Code(s): Z96.652 - Presence of left artificial knee joint
--- NOTE | 2023-01-31 12:59 | NURSING ---
Patient and his informed this RN that they would like to go home rather than go to TCU. This RN updated MOUSTAPHA Turner and DANIEL.
--- NOTE | 2023-01-31 13:00 | CASEMGMT ---
GEO ADAMS informed that patient changed his plans and would like to discharge today. GEO ADAMS in to patient room to discuss needs at D/C. Patient's is also at the bedside. Patient states he has already cancelled the therapy appointment he had scheduled with [facility] for today. He states he will look at his schedule at home and reschedule his appointment. He asks if he has driving restrictions. This RN ANGIE spoke with patient's nurse and was informed that he will have driving restrictions at this time, and that he can discuss this further at his first therapy eval. Patient informed of this information. Patient states he only has assistance once a week to get to therapy, so this RN ANGIE provided patient with information/paper on the [facility] van transportation and explained that he can call them for assistance with transportation to his appointments. Patient reports he has all he needs for discharge (including his walker) and denies further needs at this time. Patient had no further questions/concerns at this time. Sho DANIEL, RN, CM
--- NOTE | 2023-01-31 13:05 | CASEMGMT ---
Social Work SW informed by PA that pt is now choosing to go home instead of TCU. SW met with pt and who confirm plan to go home. Genet in TCU updated to cancel referral to TCU. SHAHEEN Wayne
--- NOTE | 2023-01-31 14:19 | DS.PCM_ITS ---
Providers Date of Admission: 01/28/23 Date of Discharge: 01/31/23 Primary Care Physician: Dr. Renzo Beatty DO Reason For Visit: left total knee arthroplasty robotic assisted Diagnosis Discharge Diagnosis (1) S/P total knee arthroplasty: Status: Acute Code(s): Z96.659 - Presence of unspecified artificial knee joint Qualifiers: Laterality: left Qualified Code(s): Z96.652 - Presence of left artificial knee joint (2) Orthopedic aftercare: Status: Acute Code(s): Z47.89 - Encounter for other orthopedic aftercare (3) Other acute postprocedural pain: Status: Acute Code(s): G89.18 - Other acute postprocedural pain Plan: Postop day #3 left total knee arthroplasty Start outpatient physical therapy Eliquis 2.5 mg twice daily for 14 days postop Pain control oxycodone 5 to 15 mg every 4 hours as needed for pain. Continue Tylenol 1000 mg every 8 hours. Discharge home Follow-up 2 weeks post-op with Dr. Fritz Medications at Discharge Home Medications calcium citrate 315 mg-vitamin D3 5 mcg (200 unit) tablet (Calcium Citrate + D) 2 tab PO QHS SUPPLEMENT 04/25/20 multivitamin 2 cap PO DAILY SUPPLEMENT 04/25/20 amlodipine 5 mg tablet 5 mg PO DAILY BP 08/04/20 mecobalamin (vitamin B12) 1,000 mcg disintegrating tablet,sublingual 1,500 mcg sublingual DAILY SUPPLEMENT 08/04/20 metoprolol succinate 25 mg tablet,extended release 24 hr 25 mg PO DAILY BP 08/04/20 pantoprazole 20 mg tablet,delayed release (Protonix) 40 mg PO DAILY GERD 01/29/21 celecoxib 200 mg capsule (Celebrex) 200 mg PO BID PAIN 05/23/21 cholecalciferol (vitamin D3) 10 mcg (400 unit) capsule (Vitamin D3) 10 mcg PO DAILY SUPPLEMENT 01/08/22 magnesium 1 tab PO QHS SUPPLEMENT 01/08/22 gabapentin 100 mg capsule 100 mg PO BID PAIN 02/11/22 aspirin 81 mg tablet,delayed release (Adult Aspirin Regimen) 81 mg PO DAILY SUPPLEMENT 10/02/22 acetaminophen 500 mg tablet 1,000 mg (2 x 500 mg) PO Q6H PRN #100 tabs 01/29/23 apixaban 2.5 mg tablet (Eliquis) 2.5 mg PO BID #28 tabs 01/29/23 oxycodone 5 mg tablet 5 - 10 mg (1 - 2 x 5 mg) PO Q4H PRN pain 7 days #60 tabs 01/29/23 Hospital Course Operations total knee replacement (Left total knee arthroplasty CT guided Robotic Assisted ) Summary of Care Provided Hospital Course: He is a 52 year old male with 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 Patient underwent the aforementioned procedure on the admission date without any intraoperative complications. Patient did receive pre-and postoperative antibiotics which were discontinued within 23 hours postoperatively. Patient did receive spinal anesthesia as well as an adductor canal block postoperatively. Pain was controlled with IV and transition to p.o. pain medication, however patient did not feel his pain was adequately controlled and was having significant pain with physical therapy therefore his oxycodone was increased to 15 mg every 4 hours. Patient was admitted on 01/28/2023 the day of surgery and is being discharged home 01/31/2023. He originally did not feel he would be able to go home secondary to his amount of pain he was having and how he was doing with physical therapy therefore he decided to go to our transitional care unit before returning home. However, upon discussion with the patient and his today he is doing much better with pain and has only required 10mg of oxycodone for pain control. He feels confident that he can do the 11 steps he has to to get into his home. Patient will be discharged home with oxycodone and will continue Tylenol as well. Patient had minimal intraoperative blood loss and 2gm tranexamic acid was administered there was no need for postoperative blood transfusion. Patients vital signs remained stable. Patient was started on both mechanical and chemical DVT per prophylaxis postoperatively in the form of SCDs, SANA hose, and Eliquis 2.5 mg twice daily for which he will continue for 2 additional weeks post hospital discharge. Thigh high SANA hose placed over top of the meplix silver dressing. This should be removed 72 hrs post operatively and showering begun daily at that time with warm water and antibacterial soap. He should not submerge for 3 weeks. He will change dressing daily after first dressing change. Patient will follow-up in the office in 2 weeks. No intrahospital complications. Physical Exam Const alert and oriented x3 General Appearance: cooperative Extremity Extremity Narrative: Upon inspection of the left knee there is a SANA hose over top of 2 clean, dry and intact dressings. He has soft compartments. Negative Homans. Intact sensation to light touch throughout left lower extremity. Neurologically intact. Palpable pedal pulses. Weight / BMI Weight Weight: 273 lb 13.026 oz Body Mass Index (BMI) 40.4 ABG / Lab / Microbiology Data 01/31/23 06:33 01/29/23 06:50 Laboratory: Laboratory Results - last 24 hr 01/31/23 06:33: WBC 7.6, RBC 4.19 L, Hgb 13.0, Hct 37.8 L, MCV 90.2, MCH 31.0, MCHC 34.4 D, RDW Std Deviation 43.8, RDW Coeff of Cristian 13.3, Plt Count 184, MPV 10.6 Microbiology: Microbiology 01/15/23 11:02 Swab (Method) Nasal Screen MRSA/MSSA - Final D/C Instructions Discharge Diet: No restrictions Discharge Activity: May Shower Weight Bearing Status: Weight bearing as tolerated Call your doctor if you observe: Shortness of breath, Chest pain and Calf discomfort Additional Dressing/Incision Instructions: Ice and elevate lower extremities 2 weeks while not ambulating. Ambulation is encouraged. Weight bearing as tolerated. Use assistive devise for stability. Encourage FULL knee extension and flexion 1 time EVERY time you get up and down and MULTIPLE times per day. No showering 72 hours after surgery. Begin showering postop day #3. Remove the dressing prior to shower and gently wash with warm water and antibacterial soap then pat dry and place abdominal pad (or plain gauze) and SANA hose over top. This is to be done daily. Do not submerge for 3 weeks. If not showering daily after the initial 72 hours then you must clean incision and change dressing daily. Do not allow animals near the incision area. Keep clean. Follow anti- coagulation recommendations as prescribed. Do not take any NSAIDs while on blood thinner. Do not take any additional narcotic pain medication other than what was prescribed on your surgery day without discussing with physician. Narcotic medication can be addictive. Do not drink alcohol while taking narcotics. Supplement narcotic prescription with acetaminophen 1000 mg 4 times a day. Start physical therapy. If you are not currently scheduled for physical therapy or you are unsure of appointment time please call office [facility] to arrange. Call Dr. Fritz with any concerns. Please Follow Up With: Jason Fritz DO When: 2 weeks Meaningful Use Info Meaningful Use Diagnoses (Choose all that apply): None applicable Discharge Plan Admission Admit Date/Time: 01/28/23 05:31 Primary Reason for Your Visit: Left total knee arthroplasty Attending Provider: Jason Fritz Primary Care Provider: Renzo Beatty Consulting Providers: Mayco Clarke Discharge Orders/Prescriptions Prescriptions: New Eliquis 2.5 mg tablet 2.5 mg PO BID Qty: 28 0RF acetaminophen [acetaminophen] 500 mg tablet 1,000 mg PO Q6H PRN Qty: 100 0RF oxycodone 5 mg tablet 5 - 10 mg PO Q4H PRN (Reason: pain) 7 Days Qty: 60 0RF Continued calcium citrate-vitamin D3 [Calcium Citrate + D] 315 mg-5 mcg (200 unit) tablet 2 tab PO QHS multivitamin capsule 2 cap PO DAILY mecobalamin (vitamin B12) 1,000 mcg tablet,disintegrating 1,500 mcg SL DAILY Rx Instructions: place tablet under tongue and allow to dissolve for at least30 secs before swallowing amlodipine 5 mg tablet 5 mg PO DAILY metoprolol succinate 25 mg tablet extended release 24 hr 25 mg PO DAILY pantoprazole [Protonix] 20 mg tablet,delayed release (DR/EC) 40 mg PO DAILY gabapentin 100 mg capsule 100 mg PO BID cholecalciferol (vitamin D3) [Vitamin D3] 10 mcg (400 unit) Capsule 10 mcg PO DAILY magnesium Tablet 1 tab PO QHS Held aspirin [Adult Aspirin Regimen] 81 mg tablet,delayed release (DR/EC) 81 mg PO DAILY Hold Instructions: Resume on 02/12/23. celecoxib [Celebrex] 200 mg Capsule 200 mg PO BID Hold Instructions: Resume on 02/28/23. While taking anti-coagulant Discontinued tramadol 50 mg tablet 50 mg PO BID Referrals / Follow Up: Renzo Beatty DO [Primary Care Provider] - Disposition Disposition (needs filled in before D/C Order can be placed): Home, Self Care
[2023-01-31 15:00] VITALS: BP 145/85; PULSE 63; RESP 18; TEMP 36.6; O2SAT 100
== END 2023-01-31 15:37 | disposition home or self-care (01) | DRG 470 ==
LOC: ACINP 10:26 → MS3 11:40
PROVIDERS: Anesthesiology; Admitting Provider Orthopaedic Surgery; PCP Family Medicine; Referring Provider Orthopaedic Surgery; Visit Provider Orthopaedic Surgery
PROC: 0SRD0JZ Replacement of Left Knee Joint with Synthetic Substitute, Open Approach (ICD-10-PCS; CPT 27447; principal; 2023-01-28 07:00)
DX: M17.12 Unilateral primary osteoarthritis, left knee (principal); Z68.41 Body mass index [BMI] 40.0-44.9, adult; E11.9 Type 2 diabetes mellitus without complications; I10 Essential (primary) hypertension; F17.290 Nicotine dependence, other tobacco product, uncomplicated; M41.9 Scoliosis, unspecified; M43.16 Spondylolisthesis, lumbar region; E66.9 Obesity, unspecified; Z79.899 Other long term (current) drug therapy; Z79.82 Long term (current) use of aspirin; Z86.718 Personal history of other venous thrombosis and embolism
CPT/HCPCS: 36415; 73560; 80048; 82962; 82985; 83036; 83735; 85025; 85027; 85610; 85730; 86850; 86900; 86901; 87081; 88305; 88311; 97110; 97116; 97162; 97166; 97530; 97535; C1776; J7050; J7120; A4216; J2405; J3475; J3490

== ENCOUNTER → 2023-03-10 | Outpatient (CLI) | payer OTHER, SELFPAY ==
--- NOTE | 2023-03-10 10:35 | RAD_ITS ---
INDICATION: tka EXAMINATION/TECHNIQUE: X-RAY - LEFT XR Knee 3 Views 3 VIEWS COMPARISON: XR left knee January 28, 2023 FINDINGS: 3 views of the left knee were obtained. A left knee prosthesis is identified. No acute fracture identified. Possible small knee joint effusion. RAD/Knee 3 Views IMPRESSION: Knee prosthesis. No acute fracture identified. Electronically Signed: Ranjeet Nguyen MD at 0:57 EST ,
== END | disposition home or self-care (01) ==
PROVIDERS: PCP Family Medicine; Referring Provider Orthopaedic Surgery; Visit Provider Orthopaedic Surgery
DX: Z96.659 Presence of unspecified artificial knee joint (principal)
CPT/HCPCS: 73562

== ENCOUNTER 2023-03-11 13:35 | Day surgery (SDC) | payer OTHER, SELFPAY ==
[2023-03-11] VITALS (7 sets, daily range): BP systolic 133–149; BP diastolic 85–90; PULSE 50–63; RESP 16; TEMP 36.1–37.4; O2SAT 94–100; BMI 38.2
[2023-03-11] MEDS: Lactated Ringers 1,000 ML 15 ML IV (13:57)
--- NOTE | 2023-03-11 14:27 | HP.PCM_ITS ---
History and Physical Date of Admission: 03/11/23 [facility] [address] [place] [address] OFFICE VISIT Date of Service: 03/10/23 MR#: [id number] Acct: [id number] Name: MIRIAM BURTON Rep #: [id number] : 1970 Provider: Dr. Jason Fritz DO Age/Sex: 52/M Location: [facility] [place] Status: Signed Intake Vital Signs 11/13/2309:01 01/31/2312:59 Height 5 ft 9 in 5 ft 9 in Intake Visit Reasons: left knee Chief Complaint: 6 week f/u from Left TKA Accompanied by: Self Is patient in pain?: Yes Allergies olmesartan medoxomil [From Benicar] Allergy (Verified 03/10/23 10:20) Itching Medications calcium citrate 315 mg-vitamin D3 5 mcg (200 unit) tablet (Calcium Citrate + D) 2 tab PO QHS SUPPLEMENT 04/25/20 [History Confirmed 03/10/23] multivitamin 2 cap PO DAILY SUPPLEMENT 04/25/20 [History Confirmed 03/10/23] amlodipine 5 mg tablet 5 mg PO DAILY BP 08/04/20 [History Confirmed 03/10/23] mecobalamin (vitamin B12) 1,000 mcg disintegrating tablet,sublingual 1,500 mcg sublingual DAILY SUPPLEMENT 08/04/20 [History Confirmed 03/10/23] metoprolol succinate 25 mg tablet,extended release 24 hr 25 mg PO DAILY BP 08/04/20 [History Confirmed 03/10/23] pantoprazole 20 mg tablet,delayed release (Protonix) 40 mg PO DAILY GERD 01/29/21 [History Confirmed 03/10/23] celecoxib 200 mg capsule (Celebrex) 200 mg PO BID PAIN 05/23/21 [History Confirmed 03/10/23] cholecalciferol (vitamin D3) 10 mcg (400 unit) capsule (Vitamin D3) 10 mcg PO DAILY SUPPLEMENT 01/08/22 [History Confirmed 03/10/23] magnesium 1 tab PO QHS SUPPLEMENT 01/08/22 [History Confirmed 03/10/23] gabapentin 100 mg capsule 100 mg PO BID PAIN 02/11/22 [History Confirmed 03/10/23] aspirin 81 mg tablet,delayed release (Adult Aspirin Regimen) 81 mg PO DAILY SUPPLEMENT 10/02/22 [History Confirmed 03/10/23] acetaminophen 500 mg tablet 1,000 mg (2 x 500 mg) PO Q6H PRN #100 tabs 01/29/23 [Rx Confirmed 03/10/23] [facility] Medical History Acute bronchitis, unspecified Alcohol use Arthritis Arthritis Back pain Chronic wound of extremity Contact with and (suspected) exposure to other viral communicable diseases CPAP (continuous positive airway pressure) dependence CPAP (continuous positive airway pressure) dependence Degenerative disc disease Diabetes Disorder of uvula DVT (deep venous thrombosis) Gastric reflux GERD (gastroesophageal reflux disease) Hemorrhoids History of deep vein thrombosis History of diabetes mellitus History of echocardiogram History of hemorrhoids History of pain when walking History of steroid therapy History of stress test Hypertension Hypertension Lab test negative for COVID-19 virus Leg cramps Obesity (BMI 35.0-39.9 without comorbidity) Obstructive sleep apnea 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 Smoker Traumatic open wound of right lower leg 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 Wears glasses Surgical History Deviated septum H/O foot surgery H/O hernia repair H/O knee surgery H/O shoulder surgery History of arthroscopic knee surgery History of gastric restrictive surgery History of shoulder surgery History of surgical removal of ganglion cyst History of tonsillectomy History of tonsillectomy History of umbilical hernia repair Hx of colonoscopy Hx of gastric bypass hx of gastric sleeve Hx of knee surgery Family History Other Breast cancer Social History Smoking Status: Current some day smoker tobacco type: cigars alcohol intake: current alcohol intake frequency: holidays/special occasions only HPI left knee Details: This documentation accurately reflects the service provided and the decisions made by me, Dr. Jason Fritz, DO 03/10/23 0808. Part of today?s visit was documented by [ ], acting as scribe. MIRIAM BURTON is a 52 year old M here today for 6 wk post op, left TKA, dos 01/28/23. States that he is doing good. He states it has been stiff the past few days and after he does therapy and stretches it 5-10 minutes later it is stiff again. He states that at therapy on Friday they measured his flexion and he was at 107 with somebody pushing on his knee. Ortho Exam General General: Yes no acute distress Neurologic: Yes alert and Yes oriented x3 Psychologic: Yes reasonable and appropriate Right Knee Patella Translation: 1 Left Knee Skin/Wound: No ecchymosis, No erythema and No swelling Knee ROM: No ROM-Extension -20 to 0 (5) and No ROM-Flexion 0-140 (84) Examination: No med jt line tenderness and No TTP Tibial tubercle Stability: NML: Anterior Drawer, NML: Posterior Drawer, NML: Valgus 0, NML: Valgus 30, NML: Varus 0 and NML: Varus 30 Patella Translation: 1 KNEE: There is no sign of infection or blood clot he is neurovascular intact incision is healing nicely Head: Normocephalic Atraumatic Chest: symmetrical rise, non-labored breathing, no audible wheeze Abdomen: no guarding, non-rigid Supplemental Info 03/10/2023 x-ray left knee: Status post total knee arthroplasty with good implant position and interfaces. 01/28/2023 left total knee arthroplasty Dr. Fritz 09/17/2022 manipulation under anesthesia right knee: Dr. Fritz 09/06/2022 x-ray right knee: Status post total knee arthroplasty with good interfaces and position no concern 08/05/2022 right total knee arthroplasty Dr. Fritz 05/30/2022 x-ray right knee: Advanced knee arthrosis [id number] medial compartment there is spurring noted in the lateral compartment and patellofemoral joint with subchondral cyst of the patella, varus deformity 05/30/2022 x-ray left knee: [id number] medial compartment varus deformity moderate spurring patellofemoral compartment mild lateral Coding Level of Care Code Global Post Op Diagnoses Status post total left knee replacement Z96.652 Laterality: left Stiffness of left knee M25.662 Arthrofibrosis of total knee replacement, subsequent encounter T84.82XD Encounter type: subsequent encounter Assessment and Plan Assessment and Plan (1) S/P total knee arthroplasty: Status: Acute Qualifiers: Laterality: left Qualified Code(s): Z96.652 - Presence of left artificial knee joint (2) Stiffness of left knee: (3) Arthrofibrosis of total knee arthroplasty: Status: Acute Qualifiers: Encounter type: subsequent encounter Qualified Code(s): T84.82XD - Fibrosis due to internal orthopedic prosthetic devices, implants and grafts, subsequent encounter Orders: Orders Knee 3 Views Today Z96.659 - Presence of unspecified artificial knee joint Plan Miriam has failed to progress with his range of motion as he did on his other knee which did require manipulation under anesthesia of it he did well after this. Spoke with the patient about the benefits of a manipulation under anesthesia with intra-articular steroid injection to improve his knee range of motion. He likely will need post op pain medication although he has 16 tablets at home. He will need to do physical therapy very soon after the manipulation. Reviewed the pre-operative plans with the patient. Risks and benefits of the procedure were fully explained, including but not limited to infection, continued pain, stiffness, need for further surgery, re-injury, general risks of anesthesia,. The patient understands all the risks and does wish to proceed with written consent. Follow up in 1 month post op or sooner if pain, swelling, numbness or associated symptoms, or concerns develop. All questions answered. Patient in agreement of plan. Plan Details Goals & Barriers: Target Due Date 01/08/22 03/10/23 1114 <Electronically signed by Jason Fritz DO> Date Jason Fritz DO Cosigner Signature: Date (if applicable) I have examined the patient and the H&P has been reviewed. There are no clinical changes since date of exam.
[2023-03-11] MEDS: Cefazolin 2 GM in 0.9% Normal Saline (100mL Bag) 100 ML IV (14:48)
[2023-03-11] MEDS: Bupivacaine 0.5% PF 10 ML VIAL (14:54)
[2023-03-11] MEDS: MethylPREDNISolone Acetate 40 MG/ML Vial INTRAARTIC (14:54)
--- NOTE | 2023-03-11 14:58 | OP.PCM_ITS ---
Operative Report Date of Procedure: 03/11/23 Preoperative diagnosis: Arthrofibrosis left knee status post total knee arthroplasty Postoperative diagnosis: Same Procedure: Manipulation under anesthesia with intra-articular steroid injection Anesthesia: MAC with adductor canal block EBL: None Complications: None Condition: Able to PACU Indication for procedure: This is a 52-year-old male who underwent total knee arthroplasty approximately 6 weeks ago who is failed to gain her range of motion wish to undergo an elective manipulation under anesthesia to increase range of motion. risk benefits and alternatives were reviewed including risk of bleeding infection nerve, artery, bone, tissue damage, blood clot need for further surg mukul and continued pain. Procedure: Patient was met in the preoperative holding area once again the operative extremity was identified by both patient and physician and was marked. Patient was brought back to the operating room anesthesia was started. A timeout was called into the proper patient procedure and extremity were being contemplated. The pre-operative range of motion was lacking 5 degrees of extension and achieving 84 degrees flexion. After patient was adequately anesthetized extension manipulation was performed followed by patellar mobilization followed by gradual flexion scar tissue was palpated being released with no concerning signs for tendon rupture or fracture. Postoperative range of motion was much improved with near full extension and 125 degrees of flexion. Following the manipulation using sterile technique from the superior lateral position an intra-articular injection with 40 mg of depomedrol and 8 cc 0.25%marcaine with epi was injected. bandaid applied
--- NOTE | 2023-03-11 14:59 | DCINST_ITS ---
Discharge Instructions Diet Discharge Diet: No restrictions Dressing / Incision Call your doctor if you observe: Shortness of breath and Chest pain Additional Dressing/Incision Instructions:: Encourage full knee flexion and extension regularly. Start physical therapy immediately. May shower and return to activities as normal. Keep pain controlled with medications as discussed with Dr. Fritz in order to keep full range of motion. If you need more pain medication please call ice and elevate next 72 hours. Follow-up with Dr. Fritz and call with any questions or concerns. Follow Up Care Please Follow Up With: Jason Fritz DO When: 2 weeks Test Results: Test results from this visit will be discussed in further detail at your follow- up appointment, if applicable. 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 Provider: Jason Fritz Primary Care Provider: Renzo Beatty Discharge Orders/Prescriptions Prescriptions: No Action calcium citrate-vitamin D3 [Calcium Citrate + D] 315 mg-5 mcg (200 unit) tablet 2 tab PO QHS multivitamin capsule 2 cap PO DAILY mecobalamin (vitamin B12) 1,000 mcg tablet,disintegrating 1,500 mcg SL DAILY Rx Instructions: place tablet under tongue and allow to dissolve for at least30 secs before swallowing amlodipine 5 mg tablet 5 mg PO DAILY metoprolol succinate 25 mg tablet extended release 24 hr 25 mg PO DAILY pantoprazole [Protonix] 20 mg tablet,delayed release (DR/EC) 40 mg PO DAILY gabapentin 100 mg capsule 100 mg PO BID aspirin [Adult Aspirin Regimen] 81 mg tablet,delayed release (DR/EC) 81 mg PO DAILY Hold Instructions: Resume on 02/12/23. celecoxib [Celebrex] 200 mg Capsule 200 mg PO BID Hold Instructions: Resume on 02/28/23. While taking anti-coagulant cholecalciferol (vitamin D3) [Vitamin D3] 10 mcg (400 unit) Capsule 10 mcg PO DAILY magnesium Tablet 1 tab PO QHS acetaminophen [acetaminophen] 500 mg tablet 1,000 mg PO Q6H PRN Qty: 100 0RF Referrals / Follow Up: Renzo Beatty DO [Primary Care Provider] - Disposition Disposition (needs filled in before D/C Order can be placed): Home, Self Care
== END 2023-03-11 16:43 | disposition home or self-care (01) ==
LOC: SDC 13:36 → AC 13:37
PROVIDERS: PCP Family Medicine; Referring Provider Orthopaedic Surgery; Visit Provider Orthopaedic Surgery
PROC: (CPT 27570; principal; 2023-03-11 15:15)
DX: T84.82XA Fibrosis due to internal orthopedic prosthetic devices, implants and grafts, initial encounter (principal); E11.9 Type 2 diabetes mellitus without complications; I10 Essential (primary) hypertension; F17.290 Nicotine dependence, other tobacco product, uncomplicated; Z79.899 Other long term (current) drug therapy; Z79.82 Long term (current) use of aspirin; M25.662 Stiffness of left knee, not elsewhere classified; Y79.2 Prosthetic and other implants, materials and accessory orthopedic devices associated with adverse incidents
CPT/HCPCS: 27570; 20610; 01380; J7120; J2405

== ENCOUNTER → 2023-03-18 | Outpatient (CLI) | payer OTHER, SELFPAY ==
--- NOTE | 2023-03-18 10:02 | RAD_ITS ---
STUDY: X-RAY - RIGHT HAND REASON FOR EXAM: Male, 52 years old. Injury. TECHNIQUE: 3 views of the right hand. COMPARISON: None. FINDINGS: Normal radiocarpal articulation. Normal distal radioulnar joint. Normal visualized carpal bones. Normal carpal articulations. Normal carpometacarpal articulation of the thumb. Normal second through fifth carpometacarpal joints. Normal metacarpi. Normal metacarpophalangeal joint of the thumb. Normal interphalangeal joint of the thumb. Normal proximal and distal phalanges of the thumb. Normal metacarpophalangeal joints of the second through fifth fingers. Normal proximal and distal interphalangeal joints of the second through fifth fingers. There are tiny cystic changes in the heads of the third and fifth proximal phalanges. Intact phalanges of the second through fifth fingers. There is no demonstrated acute fracture. The soft tissue structures are unremarkable. RAD/Hand Min 3 Views IMPRESSION: No demonstrated acute fracture. Electronically Signed: Geremias Jolly MD at 10:20 EST ,
== END | disposition home or self-care (01) ==
LOC: MTRAD 10:02
PROVIDERS: PCP Family Medicine; Referring Provider Physician Assistant; Visit Provider Physician Assistant
DX: S69.91XA Unspecified injury of right wrist, hand and finger(s), initial encounter (principal)
CPT/HCPCS: 73130

== ENCOUNTER 2023-04-23 13:30 | Outpatient (RCR) | payer OTHER, SELFPAY ==
--- NOTE | 2023-02-04 10:52 | HP.PTEVAL ---
Patient's Visit Information Visit Information Visit Information: MIRIAM BURTON is a 52 year old M referred to Physical Therapy by Dr. Jason Fritz DO with a diagnosis of L TKA . Date of Evaluation: 02/04/23 Physical Therapist: Mayco Bridges, DPT, OCS, CSCS Visit Plan Frequency: 3x /Week Duration: 4-6 Weeks Plan: 3x/week for 4-6 for patellar mobs and ROM L knee. STM quads and stretch quad and HS strength L knee and core and hips gait training and stairs ice and vaso as needed Subjective Subjective: L TKA 01/28 Dr. Lopez. It was worn out. Pain to 12/05. Was on it alot yesterday. using wh walker most of time unless counter close by. R TKA in July. Sleep is hard lately due to pain. HEP: no exercises. R knee is coming tonya and not painful. Disability from knees and back. Activities: not able to relate. Wants to woodwork. Basic ADLs, I but extra ti8me and painful. Has handles on toilet. Has shower chair and walk in shower. Pain L knee: Pain Intensity (Out of 10): 2 Pain Intensity Range: 3 and 9 Objective Objective: Walks with wh walker mod I back to PT avoiding L knee flexion and heel strike until cued. Able to walk 30 feet without AD solid but antalgic L. Trasnfers using strap to move L leg and arms of chair I bed and chair. 4# knee ext L and 10# flexion both are painful -2 AROM ext to 60 in sitting or 55 in supine with strap. 19 inch girth at patella L and 25 R. patella stiff on L vs R incision healing well with dalton and no excessive redness heat or swelling. Dry. TUG 25 seconds with magnified symptoms of panting in pain described as 2/10 [facility] Balance/Special Test Scores WOMAC Total Score: 67 WOMAC Percentatge: 27.1800 Goals Goal 1:: Sleep without waking 5 hours due to knee pain Goal Time Frame: 4-6 Weeks Goal 2:: 0-110 AROM L knee to facilitate steps Goal Time Frame: 2-4 Weeks Goal 3:: walk community without AD without increased pain Goal Time Frame: 4-6 Weeks Goal 4:: steps reciprocally with one rail Goal Time Frame: 4-6 Weeks Goal 5:: Pt I in managemnt of HEP to limit future problems. Goal Time Frame: 4-6 Weeks Rehabilitation Potential Physical Therapy Diagnosis: Knee stiffness, weaknes, and pain limiting funciton Rehabilitation Potential: Fair Anticipated Interventions Patient/Client Instruction: Educate patient on: Condition and Plan of Care For the Purpose of:: To decrease pain, To increase ROM, To improve nutrient delivery to tissue, To improve muscle performance and motor function and To increase tolerance to activity/condition/position Therapeutic Exercise to Include: Strength training, Balance training, Flexibilty training, Gait and locomotor training, Passive ROM and Active ROM For the Purpose of:: To decrease pain, To increase ROM, To improve nutrient delivery to tissue, To improve muscle performance and motor function, To increase tolerance to activity/condition/position, To improve ability of physical actions for home/community/work/leisure and To improve gait and locomotor functions Manual Therapy Techniques to Include: Passive ROM and Soft tissue mobilization For the Purpose of:: To decrease pain, To increase ROM, To improve nutrient delivery to tissue and To improve muscle performance and motor function Cryotherapy (ice pack, ice massage): Yes For the Purpose of:: To decrease pain, To decrease swelling/inflammation, To increase ROM and To improve nutrient delivery to tissue Text: Thank you for the opportunity to evaluate your patient. For Medicare and Medicare HMO plans, please review the plan of care and approve it. It will need to be FAXED BACK to us at [phone] for Medicare purposes. For Medicare only, by signing this I certify the plan of care. Please let me know if there are questions or concerns regarding this plan of care. Physician Signature: Date:
--- NOTE | 2023-03-04 13:16 | HP.PTREVAL_ITS ---
Re-Evaluation Intro: Dr. Jason Fritz, DO, It has been my pleasure to treat MIRIAM BURTON over the last 10 visits for L TKA 01/28/23. Please see the progress note below for an update on the physical therapy plan of care! Subjective Subjective: Pt. reports overall doing well today. His pain is doing much better. Pt. is to see physician next week. Pt. arrives without AD. HE has okay gait pattern with slight loss of TKE during stance. Good enough knee flexion during s wing phase. Mild antalgic pattern. Objective Objective/Function: Pt. was able to get to 0-3-105deg . pt. is lacking 3 deg of ext, and 105 deg flexion. Pt. is tolerating better, but is still pretty stiff. Pt. would benefit from continued stretching and ROM exercises. His pain seemed to be better managed, but still struggles with end ranges of motion. His gait is improving and still lacks TKE during stance phase. Plan Plan Plan: 3x/week for 4-6 for patellar mobs and ROM L knee STM quads and stretch quad and HS strength L knee and core and hips gait training and stairs ice and vaso as needed Balance/Gait/Functional tests Balance/Special Test Scores WOMAC Total Score: 67 WOMAC Percentage: 27.1800 Goals Goals Goal 1:: Sleep without waking 5 hours due to knee pain Goal Time Frame: 4-6 Weeks Goal Progress: Progressing Goal 2:: 0-110 AROM L knee to facilitate steps Goal Time Frame: 2-4 Weeks Goal Progress: Progressing Goal 3:: walk community without AD without increased pain Goal Time Frame: 4-6 Weeks Goal Progress: Progressing Goal 4:: steps reciprocally with one rail Goal Time Frame: 4-6 Weeks Goal Progress: Progressing Goal 5:: Pt I in managemnt of HEP to limit future problems. Goal Time Frame: 4-6 Weeks Goal Progress: Progressing Anticipated Interventions Anticipated Interventions Patient/Client Instruction: Educate patient on: Condition and Plan of Care For the Purpose of:: To decrease pain, To increase ROM, To improve nutrient delivery to tissue, To improve muscle performance and motor function and To increase tolerance to activity/condition/position Therapeutic Exercise to Include: Strength training, Balance training, Flexibilty training, Gait and locomotor training, Passive ROM and Active ROM For the Purpose of:: To decrease pain, To increase ROM, To improve nutrient delivery to tissue, To improve muscle performance and motor function, To increase tolerance to activity/condition/position, To improve ability of physical actions for home/community/work/leisure and To improve gait and locomotor functions Manual Therapy Techniques to Include: Passive ROM and Soft tissue mobilization For the Purpose of:: To decrease pain, To increase ROM, To improve nutrient delivery to tissue and To improve muscle performance and motor function Cryotherapy (ice pack, ice massage): Yes For the Purpose of:: To decrease pain, To decrease swelling/inflammation, To increase ROM and To improve nutrient delivery to tissue Re-Evaluation Ending Re-evaluation ending: Please do not hesitate to contact me at [phone] by phone or if you have questions or concerns regarding this new plan of care! Sincerely, CHAPARRITA StoneT
--- NOTE | 2023-03-28 10:48 | HP.PTREVAL_ITS ---
Re-Evaluation Intro: Dr. Jason Fritz, DO, It has been my pleasure to treat MIRIAM BURTON over the last 19 visits for L TKA 01/28/23. Please see the progress note below for an update on the physical therapy plan of care! Subjective Subjective: Going better. ROM is good. 120 ROM. pain overall is minimal /10. Worse rolling bed. Walking Ok, steps are OK. Activities: Ok, not kneel. HEP: ROM and SLR, squats and step ups. To doctor in two weeks to [place]. Objective Objective/Function: 0-118 AROM L knee, 0-115 R knee. walks without antalgia but slow and slightly wide BI[place]O. Steps are reciprocal with one rail with slight discomfort on L more descending then ascending but I. Overall pretty comfortable. needs final HEP and wants via HEP vs in gym. Plan Plan Plan: 2x next week for 2 visits of instruct in final home strength program with list and pics. SLR, clamshells, inchworms, steps ups, squats, deadlifts. Then EG to f/u two weeks later. for TKA d/c Balance/Gait/Functional tests Balance/Special Test Scores WOMAC Total Score: 30 WOMAC Percentage: 68.7500 Goals Goals Goal 1:: Sleep without waking 5 hours due to knee pain Goal Time Frame: 4-6 Weeks Goal Progress: Goal Met Goal 2:: 0-110 AROM L knee to facilitate steps Goal Time Frame: 2-4 Weeks Goal Progress: Goal Met Goal 3:: walk community without AD without increased pain Goal Time Frame: 4-6 Weeks Goal Progress: Goal Met Goal 4:: steps reciprocally with one rail Goal Time Frame: 4-6 Weeks Goal Progress: Progressing Goal 5:: Pt I in managemnt of HEP to limit future problems. Goal Time Frame: 4-6 Weeks Goal Progress: Progressing Anticipated Interventions Anticipated Interventions Patient/Client Instruction: Educate patient on: Condition and Plan of Care For the Purpose of:: To decrease pain, To increase ROM, To improve nutrient delivery to tissue, To improve muscle performance and motor function and To increase tolerance to activity/condition/position Therapeutic Exercise to Include: Strength training, Balance training, Flexibilty training, Gait and locomotor training, Passive ROM and Active ROM For the Purpose of:: To decrease pain, To increase ROM, To improve nutrient delivery to tissue, To improve muscle performance and motor function, To increase tolerance to activity/condition/position, To improve ability of physical actions for home/community/work/leisure and To improve gait and locomotor functions Manual Therapy Techniques to Include: Passive ROM and Soft tissue mobilization For the Purpose of:: To decrease pain, To increase ROM, To improve nutrient delivery to tissue and To improve muscle performance and motor function Cryotherapy (ice pack, ice massage): Yes For the Purpose of:: To decrease pain, To decrease swelling/inflammation, To increase ROM and To improve nutrient delivery to tissue Re-Evaluation Ending Re-evaluation ending: Please do not hesitate to contact me at [phone] by phone or Fax: if you have questions or concerns regarding this new plan of care! Sincerely, Mayco Bridges, DPT, OCS, CSCS
--- NOTE | 2023-06-06 12:50 | HP.PTDCNRP_ITS ---
Patient Information Patient Information: MIRIAM BURTON was seen in my office for initial evaluation on 02/04/23. The following Plan of Care was established for this patient: POC Established Initial Frequency: 3x /Week Initial Duration: 4-6 Weeks Anticipated Interventions Patient/Client Instruction: Educate patient on: Condition and Plan of Care For the Purpose of:: To decrease pain, To increase ROM, To improve nutrient delivery to tissue, To improve muscle performance and motor function and To increase tolerance to activity/condition/position Therapeutic Exercise to Include: Strength training, Balance training, Flexibilty training, Gait and locomotor training, Passive ROM and Active ROM For the Purpose of:: To decrease pain, To increase ROM, To improve nutrient delivery to tissue, To improve muscle performance and motor function, To increase tolerance to activity/condition/position, To improve ability of physic al actions for home/community/work/leisure and To improve gait and locomotor functions Manual Therapy Techniques to Include: Passive ROM and Soft tissue mobilization For the Purpose of:: To decrease pain, To increase ROM, To improve nutrient delivery to tissue and To improve muscle performance and motor function Cryotherapy (ice pack, ice massage): Yes For the Purpose of:: To decrease pain, To decrease swelling/inflammation, To increase ROM and To improve nutrient delivery to tissue Last Seen Last Seen: This patient was last seen in our office 04/23/23. Pertinent comments regarding their Physical therapy will appear below: Pt seen for 21 visits after knee replacement and made slow progress including needing a manipulation. After his latest recheck, he had two visits of HEP instruct as he was functional and then was to f/u two weeks later but did not schedule or attend. At this point, it has been over 5 weeks and I will discontinue from therapy. At this point I will be discontinuing this patient from physical therapy. I would be happy to see this patient again in the future if found appropriate by the physician. Thank you! Mayco Bridges, DPT, OCS, CSCS Balance/Gait/Functional tests Balance/Special Test Scores WOMAC Total Score: 30 WOMAC Percentage: 68.7500
== END 2023-04-23 19:00 | disposition home or self-care (01) ==
LOC: PT 13:30
PROVIDERS: PCP Family Medicine; Referring Provider Orthopaedic Surgery; Visit Provider Orthopaedic Surgery
DX: M17.12 Unilateral primary osteoarthritis, left knee (principal); Z96.652 Presence of left artificial knee joint
CPT/HCPCS: 97110; 97140; 97161; 97530

== ENCOUNTER → 2023-05-14 | Outpatient (CLI) | payer OTHER, SELFPAY ==
[2023-05-14 12:52] LABS: Hemoglobin A1c 4.9 % (3.8-5.6)
[2023-05-14 13:01] LABS: Cholesterol 143 mg/dL (200); High Density Lipoprotein 42 mg/dL; PSA,Total - Annual Screen 0.46 ng/mL (0.00-4.00); Triglycerides 162 mg/dL; Very Low Density Lipoprotein 32 mg/dL (5-40)
== END | disposition home or self-care (01) ==
LOC: BFHLAB 08:56
PROVIDERS: PCP Family Medicine; Visit Provider Family Medicine
DX: Z00.00 Encounter for general adult medical examination without abnormal findings (principal); Z12.5 Encounter for screening for malignant neoplasm of prostate; R73.01 Impaired fasting glucose
CPT/HCPCS: 36415; 80061; 83036; 84153; G0103

== ENCOUNTER 2023-05-26 11:49 | Emergency (ER) | payer OTHER, SELFPAY ==
[2023-05-26 11:49] VITALS: BP 160/90; PULSE 51; RESP 16; TEMP 37; O2SAT 99; BMI 37.9
--- NOTE | 2023-05-26 11:57 | VDLE_ITS ---
Reason For Study: LLE Pain RIGHT LEFT CFV is compressible, spontaneous, phasic, GSV is normal. competent and demonstrates normal CFV is compressible, spontaneous, phasic, augmentation. competent, and demonstrates normal Procedure augmentation. This is a venous duplex using B-mode, color FV is compressible, spontaneous, phasic, flow and spectral Doppler. competent and demonstrates normal Exam performed portable in ED. augmentation. The exam was diagnostic. POP V is compressible, spontaneous, phasic, A preliminary report was called and/or faxed competent and demonstrates normal to Dr. LINK. augmentation. T/P Trunk is compressible. PTV is compressible. LT PerV is compressible. VL/Venous Duplex US, Unilateral Interpretation Summary There is no evidence of left lower extremity deep vein thrombosis. Left great s aphenous vein appears patent and compressible segmentally. Normal flow patterns right common femoral vein Ordering Physician: Gonsalo Hwang Performed By: Garfield Velasco RVT
--- NOTE | 2023-05-26 11:58 | EX.ED.DYSGE1 ---
HPI <ELEAZAR Mandujano - Last Filed: 05/26/23 13:04> History of Present Illness Chief Complaint: Lower Extremity Injury Narrative Narrative: Patient is a 53-year-old male with history of hypertension, hyperlipidemia, history of DVT from surgery who presents to the emergency department for 1 day of worsening left lower leg pain, left leg redness. Patient states it has been itching like crazy over the last several hours, has been itching it and he noticed that the it is red behind the calf as well as some increased swelling. Patient denies any chest pain, denies any shortness of breath. Patient denies any fever or chills. Patient did have a 2-hour car ride yesterday that was 2 hours to a facility than 2 hours back. Patient did have a knee replacement in January 2023 [facility] <ELEAZAR Mandujano - Last Filed: 05/26/23 13:04> [facility] Medical History (Updated 05/26/23 @ 13:01 by ELEAZAR Mandujano) Acute bronchitis, unspecified Alcohol use Arthritis Arthritis Back pain Chronic wound of extremity Contact with and (suspected) exposure to other viral communicable diseases CPAP (continuous positive airway pressure) dependence CPAP (continuous positive airway pressure) dependence Degenerative disc disease Diabetes Disorder of uvula DVT (deep venous thrombosis) Gastric reflux GERD (gastroesophageal reflux disease) Hemorrhoids History of deep vein thrombosis History of diabetes mellitus History of echocardiogram History of hemorrhoids History of pain when walking History of steroid therapy History of stress test Hypertension Hypertension Lab test negative for COVID-19 virus Leg cramps Obesity (BMI 35.0-39.9 without comorbidity) Obstructive sleep apnea 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 Smoker Strain of right hand Traumatic open wound of right lower leg 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 Wears glasses Home Medications calcium citrate 315 mg-vitamin D3 5 mcg (200 unit) tablet (Calcium Citrate + D) 2 tab PO QHS SUPPLEMENT 04/25/20 [History Last Taken 01/27/23] multivitamin 2 cap PO DAILY SUPPLEMENT 04/25/20 [History Last Taken 01/27/23] amlodipine 5 mg tablet 5 mg PO DAILY BP 08/04/20 [History Last Taken 03/11/23] mecobalamin (vitamin B12) 1,000 mcg disintegrating tablet,sublingual 1,500 mcg sublingual DAILY SUPPLEMENT 08/04/20 [History Last Taken 01/27/23] metoprolol succinate 25 mg tablet,extended release 24 hr 25 mg PO DAILY BP 08/04/20 [History Last Taken 03/11/23] pantoprazole 20 mg tablet,delayed release (Protonix) 40 mg PO DAILY GERD 01/29/21 [History Last Taken 03/11/23] celecoxib 200 mg capsule (Celebrex) 200 mg PO BID PAIN 05/23/21 [History Last Taken 01/19/23] cholecalciferol (vitamin D3) 10 mcg (400 unit) capsule (Vitamin D3) 10 mcg PO DAILY SUPPLEMENT 01/08/22 [History Last Taken 01/27/23] magnesium 1 tab PO QHS SUPPLEMENT 01/08/22 [History Last Taken 01/27/23] gabapentin 100 mg capsule 100 mg PO BID PAIN 02/11/22 [History Last Taken 03/11/23] aspirin 81 mg tablet,delayed release (Adult Aspirin Regimen) 81 mg PO DAILY SUPPLEMENT 10/02/22 [History Last Taken 03/10/23] acetaminophen 500 mg tablet 1,000 mg (2 x 500 mg) PO Q6H PRN #100 tabs 01/29/23 [Rx Last Taken Unknown] cephalexin 500 mg capsule 2,000 mg (4 x 500 mg) PO ONCE #4 caps 04/09/23 [Rx Last Taken Unknown] cephalexin 500 mg capsule 500 mg PO Q6 #40 CAPSULES 05/26/23 [Rx Last Taken Unknown] sulfamethoxazole 800 mg-trimethoprim 160 mg tablet (Bactrim DS) 1 tab PO BID #20 tabs 05/26/23 [Rx Last Taken Unknown] sulfamethoxazole 800 mg-trimethoprim 160 mg tablet (Bactrim DS) 1 tab PO BID #20 tabs 05/26/23 [Rx Last Taken Unknown] Allergy/AdvReac Type Severity Reaction Status Date / Time olmesartan medoxomil Allergy Itching Verified 05/26/23 11:51 [From Rona] Family History Other Breast cancer Surgical History Deviated septum H/O foot surgery H/O hernia repair H/O knee surgery H/O shoulder surgery History of arthroscopic knee surgery History of gastric restrictive surgery History of shoulder surgery History of surgical removal of ganglion cyst History of tonsillectomy History of tonsillectomy History of umbilical hernia repair Hx of arthroplasty Hx of colonoscopy Hx of gastric bypass hx of gastric sleeve Hx of knee surgery Social History Smoking Status: Current some day smoker tobacco type: cigars alcohol intake: current alcohol intake frequency: holidays/special occasions only ROS <ELEAZAR Mandujano - Last Filed: 05/26/23 13:04> ROS ED ROS Narrative Constitutional: Negative for fever, chills, weight loss, weakness Eyes: Negative for vision loss, vision change, double vision ENT: Negative for any sore throat, ear pain, congestion Cardiovascular: Negative for any chest pain, tightness, palpitations Respiratory: Negative for any cough, sputum production, hemoptysis, dyspnea, dyspnea on exertion, orthopnea Gastrointestinal: Negative for any abdominal pain, nausea, vomiting, diarrhea, constipation, blood in stool, blood in vomit : Negative for any urinary frequency, dysuria, retention, blood in urine Muscle skeletal: Negative for any myalgias, arthralgias, neck pain, back pain. Positive for left leg pain, left leg redness and swelling Neurological: Negative for any headache, syncope, paresthesias, dizziness Skin: Negative for any rashes, lumps, itching, abrasions, lacerations Psychiatric: Negative for any depression, anxiety, stress, suicidal ideation, homicidal ideation Hematologic: Negative for any easy bruising, excessive bruising, easy bleeding Allergies: Negative for any eczema, hives, rash EXAM <ELEAZAR Mandujano - Last Filed: 05/26/23 13:04> Physical Exam Narrative Exam Narrative: Vital signs reviewed. HEET: Head normocephalic atraumatic, TMs clear bilaterally. Posterior pharynx is clear, moist mucous membranes. Nares clear bilaterally. Neck: Supple with no lymphadenopathy or tenderness. No signs of meningismus. Cardiac: Regular rate and rhythm no murmurs gallops or rubs, equal peripheral pulses bilaterally. Respiratory: Lungs clear to auscultation bilaterally. No chest tenderness. Abdomen: Soft, nontender, nondistended. No abdominal bruit or pulsatile masses. No hepatosplenomegaly Extremities: Patient does have bilateral lower leg edema, 1+ pitting edema to the right, left leg +2, there is significant redness to the posterior lower leg just below the calf. This is warm to the touch. +2 pedal pulse no signs of gross trauma or deformity. Active full range of motion of all extremities. Neuro: Cranial nerves II through XII intact, no focal neurological deficits. Skin: Clean dry and intact with no rash, purpura, petechiae, vesicles or pustules. Backs/flank: No CVA tenderness, no midline spinal tenderness, no deformity. Psych: Normal mood and affect. No SI, HI or acute psychosis. Const Vital Signs: 05/26/23 11:49 Temperature 98.6 F Temperature Source Temporal Pulse Rate 51 L Respiratory Rate 16 Blood Pressure 160/90 H Blood Pressure Mean 113 Pulse Ox 99 Oxygen Delivery Method Room Air <Dr. Christiano Newby DO - Last Filed: 05/26/23 15:06> Physical Exam Const Vital Signs: 05/26/23 11:49 Temperature 98.6 F Temperature Source Temporal Pulse Rate 51 L Respiratory Rate 16 Blood Pressure 160/90 H Blood Pressure Mean 113 Pulse Ox 99 Oxygen Delivery Method Room Air MDM <ELEAZAR Mandujano - Last Filed: 05/26/23 13:04> [facility] Treatment and Re-Evaluation :: Patient appears to be in no obvious distress, patient looks well, nontoxic. Presenting to the emergency department left lower leg redness, left leg edema. Differential diagnose includes DVT, cellulitis, vascular sufficiency, dependent edema. Patient will receive a venous duplex of left lower extremity to rule out any blood clot. If the DVT is negative, I am concerned for cellulitis. Patient's DVT study was negative. No evidence of any blood clot to the leg. At this time, secondary to the redness, erythema as well as edema, patient be diagnosed with cellulitis. Patient will have an outline of the redness completed before discharge. Patient be started Keflex, Bactrim. He placed on antibiotics for 10 days. Instructed return for any worsening symptoms. All questions were answered, patient stable for discharge. <Dr. Christiano Nweby DO - Last Filed: 05/26/23 15:06> [facility] Treatment and Re-Evaluation :: Patient appears to be in no obvious distress, patient looks well, nontoxic. Presenting to the emergency department left lower leg redness, left leg edema. Differential diagnose includes DVT, cellulitis, vascular sufficiency, dependent edema. Patient will receive a venous duplex of left lower extremity to rule out any blood clot. If the DVT is negative, I am concerned for cellulitis. Patient's DVT study was negative. No evidence of any blood clot to the leg. At this time, secondary to the redness, erythema as well as edema, patient be diagnosed with cellulitis. Patient will have an outline of the redness completed before discharge. Patient be started Keflex, Bactrim. He placed on antibiotics for 10 days. Instructed return for any worsening symptoms. All questions were answered, patient stable for discharge. 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 I perform my own [id number] evaluation. I agree with the plan of work-up. Increasing left leg swelling since yesterday. Travels by car. Had a provoked DVT in the past from surgeries. Had additional surgery left knee this past January. No chest pains or shortness of breath. He has been scratching also has leg increasing redness. No fevers. No history of diabetes. Exam there is slight asymmetric swelling left lower leg there is erythema posterior distal calf no streaking. Skin is intact. He had pulses distally. DVT study was negative. He is nontoxic. Possible concerns for secondary infection from his scratching. The erythema was outlined. He started on antibiotics. Return precautions. Outpatient follow-up. Discharge Plan Triage Chief Complaint: Lower Extremity Injury ED Midlevel Provider: Gonsalo Hwang ED Provider: Christiano Newby Dx/Rx/DC Orders Clinical Impression: Leg edema, Cellulitis Instructions: Cellulitis Dc, ED Peripheral Edema, Unilateral Prescriptions: New sulfamethoxazole-trimethoprim [Bactrim DS] 800-160 mg tablet 1 tab PO BID Qty: 20 0RF cephalexin 500 mg capsule 500 mg PO Q6 Qty: 40 0RF sulfamethoxazole-trimethoprim [Bactrim DS] 800-160 mg tablet 1 tab PO BID Qty: 20 0RF No Action calcium citrate-vitamin D3 [Calcium Citrate + D] 315 mg-5 mcg (200 unit) tablet 2 tab PO QHS multivitamin capsule 2 cap PO DAILY mecobalamin (vitamin B12) 1,000 mcg tablet,disintegrating 1,500 mcg SL DAILY Rx Instructions: place tablet under tongue and allow to dissolve for at least30 secs before swallowing amlodipine 5 mg tablet 5 mg PO DAILY metoprolol succinate 25 mg tablet extended release 24 hr 25 mg PO DAILY pantoprazole [Protonix] 20 mg tablet,delayed release (DR/EC) 40 mg PO DAILY gabapentin 100 mg capsule 100 mg PO BID aspirin [Adult Aspirin Regimen] 81 mg tablet,delayed release (DR/EC) 81 mg PO DAILY Hold Instructions: Resume on 02/12/23. cephalexin 500 mg capsule 2,000 mg PO ONCE Qty: 4 2RF Rx Instructions: Take within 1 hour prior to dental procedure celecoxib [Celebrex] 200 mg Capsule 200 mg PO BID Hold Instructions: Resume on 02/28/23. While taking anti-coagulant cholecalciferol (vitamin D3) [Vitamin D3] 10 mcg (400 unit) Capsule 10 mcg PO DAILY magnesium Tablet 1 tab PO QHS acetaminophen [acetaminophen] 500 mg tablet 1,000 mg PO Q6H PRN Qty: 100 0RF Primary Care Provider: Renzo Beatty Referrals: Renzo Beatty DO [Primary Care Provider] - Activity Restrictions/Additional Instructions: Take the antibiotics until finished. Return for worsening redness, fever, chills, worsening symptoms. Disposition Disposition: Home, Self Care Discharge Date/Time: 05/26/23 13:11
--- OUTSIDE RECORDS SUMMARY | 2023-05-26 13:06 | XMS RPT_ITS | CCD ---
Author Name Unknown Address [id number] [place] [address] Organization [facility] Care Team Providers Care Computer Networker Name Role Phone Sho Welch LPN Unavailable Jorge MACHINE RIVETER, Fadia N Unavailable Unavailab le Jorge ALDRIDGE, Fadia N Unavailable Unavailab le Maru Alvares Unavailable [phone] SUZE RUBIO R Unavailable Unavailabl e JOANNE, KENNETHOPHER R Unavailable Unavailabl e LAKTAMARIA DOLORES SERGEY M Unavailable Unavailable IM[facility] Unavailable Unavailable LAKTASH, SERGEY M Unavailable Unavailable GONZALEZ, ELTON Unavailable Unavailable GONZALEZ, ELTON Unavailable Unavailable LAKTASH, SERGEY M Unavailable Unavailable [facility] Unavailable Unavailable GONZALEZ, ELTON Unavailable Unavailable [facility] Unavailable Unavailable GONZALEZ, ELTON Unavailable Unavailable GONZALEZ, ELTON Unavailable Unavailable [facility] Unavailable Unavailable GONZALEZ, ELTON Unavailable Unavailable [facility] Unavailable Unavailable [facility] Unavailable Unavailable LAKTASH, SERGEY M Unavailable Unavailable [facility] Unavailable Unavailable [facility] Unavailable Unavailable LAKTASH, SERGEY M Unavailable Unavailable [facility] Unavailable Unavailable [facility] Unavailable Unavailable JOANNE, CHRISTOPHER R Unavailable Unavailabl e IM[facility] Unavailable Unavailable [facility] Unavailable Unavailable JOANNE, CHRISTOPHER R Unavailable Unavailabl e IMCA Unavailable Unavailable JOANNE, CHRISTOPHER R Unavailable Unavailabl e JOANNE, CHRISTOPHER R Unavailable Unavailabl e IMCA Unavailable Unavailable JOANNE, CHRISTOPHER R Unavailable Unavailabl e JOANNE, CHRISTOPHER R Unavailable Unavailabl e IM[facility] Unavailable Unavailable [facility] Unavailable Unavailable LAKTASH, SERGEY M Unavailable Unavailable [facility] Unavailable Unavailable [facility] Unavailable Unavailable [facility] Unavailable Unavailable ANIRUDH MUJICA Unavailable Unavailable JOANNE, CHRISTOPHER R Unavailable Unavailabl e IM[facility] Unavailable Unavailable [facility] Unavailable Unavailable ROSALINDA RUBIOMARY R Unavailable Unavailabl e [facility] Unavailable Unavailable [facility] Unavailable Unavailable ANIRUDH MUJICA Unavailable Unavailable [facility] Unavailable Unavailable [facility] Unavailable Unavailable SERGEY RUSH Unavailable Unavailable [facility] Unavailable Unavailable [facility] Unavailable Unavailable Sho Welch LPN Unavailable [phone] Renzo Beatty Primary Care Provider [phone] Kayleigh Tian Unavailable Allergies Allergy Classification Reported Allergen(s) Allergy Type Date of Onset Reaction(s) Facility (7 sources) amLODIPine / benazepril drug allergy [address] [facility] Work Phone: (7 sources) olmesartan drug allergy [address] [facility] Work Phone: (3 sources) olmesartan; Translations: [OLMESARTAN MEDOXOMIL] Drug Allergy 7 Other: See Comments [facility] Repository Medications Completed/Discontinued Medications Medication Drug Class(es) Dates Sig (Normalized) Sig (Original) acetaminophen 325 mg / HYDROcodone bitartrate 5 mg oral tablet (20 sources) Opioid Agonist Start: 03-30-2015 End: 04-03-2015 HYDROCODONE-ACETAMI NOPHEN 5-325 MG TABS 1-2 tabs as needed every 4 hours for pain HYDROCODONE-ACETAMI NOPHEN [id number] Renzo Beatty DO Problems Active Problems Problem Classification Problem Date Documented Date Episodic/Chronic Diabetes mellitus with complications (14 sources) Type II diabetes mellitus uncontrolled; Translations: [Type 2 diabetes mellitus with hyperglycemia] Onset: 01-05-2015 Resolved: 08-31-2015 01-05-2015 Chronic Diabetes mellitus without complication (7 sources) Type 2 diabetes mellitus well controlled; Translations: [Type 2 diabetes mellitus without complications] Onset: 05-25-2015 05-25-2015 Chronic Disorders of lipid metabolism (7 sources) Hyperlipidemia; Translations: [Hyperlipidemia, unspecified] 08-04-2010 Chronic Esophageal disorders (9 sources) Gastroesophageal reflux disease; Translations: [Gastro-esophageal reflux disease without esophagitis] Onset: 04-14-2017 08-04-2010 Chronic Essential hypertension (7 sources) Hypertensive disorder; Translations: [Essential (primary) hypertension] 08-04-2010 Chronic Joint disorders and dislocations; trauma-related (7 sources) Derangement of meniscus; Translations: [Other meniscus derangements, unspecified meniscus, unspecified knee] Onset: 09-07-2015 09-07-2015 Chronic Osteoarthritis (14 sources) Osteoarthritis of knee; Translations: [Osteoarthritis of knee, unspecified] Onset: 03-03-2015 05-14-2016 Chronic Other liver diseases (7 sources) Steatosis of liver; Translations: [Fatty (change of) liver, not elsewhere classified] Onset: 01-05-2015 01-05-2015 Chronic Other nutritional; endocrine; and metabolic disorders (7 sources) Obesity; Translations: [Obesity, unspecified] Onset: 01-05-2015 01-05-2015 Chronic Other nutritional; endocrine; and metabolic disorders (2 sources) Body mass index 40+ - severely obese; Translations: [Adult BMI 45.0-49.9 kg/sq m] Onset: 04-14-2017 04-14-2017 Chronic Other nutritional; endocrine; and metabolic disorders (4 sources) Morbid obesity; Translations: [Morbid obesity] Onset: 08-14-2017 09-04-2017 Chronic Spondylosis; intervertebral disc disorders; other back problems (14 sources) Degeneration of lumbar intervertebral disc; Translations: [Degeneration of thoracic intervertebral disc] Onset: 01-05-2015 01-05-2015 Chronic Unclassified (7 sources) Obstructive sleep apnea syndrome; Translations: [Obstructive sleep apnea (adult) (pediatric)] Onset: 01-05-2015 01-05-2015 Chronic Unclassified (1 source) Unknown / UNK(Unknown) Onset: 09-04-2017 Unclassified (2 sources) Postoperative physical examination; Translations: [Encounter for other specified surgical aftercare] Onset: 06-13-2016 06-13-2016 Past or Other Problems Problem Classification Problem Date Documented Da te Episodic/Chronic Conditions associated with dizziness or vertigo (14 sources) Dizziness and giddiness; Translations: [Dizziness and giddiness] Onset: 08-20-2010 Resolved: 01-05-2015 08-20-2010 Episodic Genitourinary symptoms and ill-defined conditions (7 sources) Blood in urine; Translations: [Gross hematuria] Onset: 03-30-2015 Resolved: 04-13-2015 03-30-2015 Episodic Inflammation, infection of eye (11 sources) External hordeolum; Translations: [Conjunctivitis] Onset: 08-04-2010 Resolved: 08-18-2010 01-09-2017 Episodic Medical examination/evaluation (5 sources) Encounter for other preprocedural examination; Translations: [Encounter for other preprocedural examination] Onset: 10-18-2015 Resolved: 10-23-2015 10-18-2015 Episodic Nonspecific chest pain (14 sources) Precordial pain; Translations: [Precordial pain] Onset: 08-20-2010 Resolved: 01-05-2015 01-05-2015 Episodic Other aftercare (5 sources) Encounter for other specified surgical aftercare; Translations: [Encounter for other specified surgical aftercare] Onset: 06-13-2016 06-13-2016 Episodic Other circulatory disease (14 sources) Abnormal result of cardiovascular function study, unspecified; Translations: [Abnormal result of cardiovascular function study, unspecified] Onset: 08-20-2010 Resolved: 01-05-2015 01-05-2015 Episodic Other connective tissue disease (20 sources) Pain in calf; Translations: [Biceps tendinitis] Onset: 10-18-2015 Resolved: 10-25-2015 07-04-2016 Episodic Other connective tissue disease (4 sources) Plantar fasciitis; Translations: [Plantar fascial fibromatosis] Onset: 10-18-2015 Resolved: 10-25-2015 10-18-2015 Episodic Other connective tissue disease (4 sources) Impingement syndrome of shoulder region; Translations: [Impingement syndrome of right shoulder] Resolved: 01-05-2015 01-05-2015 Episodic Other connective tissue disease (4 sources) Rotator cuff syndrome; Translations: [Unspecified rotator cuff tear or rupture of unspecified shoulder, not specified as traumatic] Resolved: 02-27-2012 02-27-2012 Episodic Other connective tissue disease (4 sources) Biceps tendinitis; Translations: [Bicipital tendinitis, unspecified shoulder] Resolved: 01-05-2015 02-27-2012 Episodic Other connective tissue disease (2 sources) Calcaneal spur; Translations: [Calcaneal spur, unspecified foot] Onset: 10-18-2015 Resolved: 10-25-2015 10-18-2015 Episodic Other diseases of kidney and ureters (14 sources) Kidney disease; Translations: [Disorder of kidney and ureter, unspecified] Onset: 08-20-2010 Resolved: 01-05-2015 08-20-2010 Episodic Other non-traumatic joint disorders (20 sources) Knee pain; Translations: [Impingement syndrome of shoulder region] Onset: 02-13-2015 Resolved: 08-31-2015 02-13-2015 Episodic Other non-traumatic joint disorders (4 sources) Pain in unspecified shoulder; Translations: [Pain in unspecified shoulder] Resolved: 01-05-2015 02-05-2012 Episodic Phlebitis; thrombophlebitis and thromboembolism (7 sources) Deep venous thrombosis; Translations: [Acute embolism and thrombosis of unspecified vein] Onset: 08-16-2016 08-16-2016 Episodic Syncope (14 sources) Syncope and collapse; Translations: [Syncope and collapse] Onset: 08-20-2010 Resolved: 01-05-2015 01-05-2015 Episodic Unclassified (4 sources) Pain; Translations: [Pain, unspecified] Onset: 11-18-2016 11-18-2016 Episodic Unclassified (1 source) Morbid (severe) obesity due to excess calories Onset: 09-02-2017 Unclassified (2 sources) Preoperative procedures; Translations: [Encounter for other preprocedural examination] Onset: 10-18-2015 Resolved: 10-23-2015 10-18-2015 Viral infection (4 sources) Herpes zoster; Translations: [Zoster without complications] Onset: 11-18-2016 11-18-2016 Episodic Results Test Name Value Interpretation Reference Range Facil ity Vital Signs Date Time Vital Sign Value Performing Clinician Facility 01-09-2017 17:07-0400 BMI (Body Mass Index) 49.61 kg/m2 Sho Welch LPN [facility] Work Phone: 01-09-2017 17:07-0400 Body Temperature 97.1 [degF] Sho Welch LPN [facility] Work Phone: 01-09-2017 17:07-0400 BP Diastolic 86 mm[Hg] Sho Welch LPN [facility] Work Phone: 01-09-2017 17:07-0400 BP Systolic 128 mm[Hg] Sho Welch LPN [facility] Work Phone: 01-09-2017 17:07-0400 Height 175.26 cm Sho Welch LPN [facility] Work Phone: 01-09-2017 17:07-0400 Pulse (Heart Rate) 62 /min Sho Welch LPN [facility] Work Phone: 01-09-2017 17:07-0400 Respiratory Rate 14 /min Sho Welch LPN [facility] Work Phone: 01-09-2017 17:07-0400 Weight 152.41 kg Sho Welch LPN [facility] Work Phone: 11-18-2016 10:53-0400 BMI (Body Mass Index) 50.23 kg/m2 Fadia Patel LPN [facility] Work Phone: 11-18-2016 10:53-0400 Body Temperature 98.8 [degF] Fadia Patel LPN [facility]to Work Phone: 11-18-2016 10:53-0400 BP Diastolic 90 mm[Hg] Fadia Patel LPN [facility] Work Phone: 11-18-2016 10:53-0400 BP Systolic 150 mm[Hg] Fadia Patel LPN [facility] Work Phone: 11-18-2016 10:53-0400 Height 175.26 cm Fadia Patel LPN [facility] Work Phone: 11-18-2016 10:53-0400 Pulse (Heart Rate) 91 /min Fadia Patel LPN [facility] Work Phone: 11-18-2016 10:53-0400 Respiratory Rate 16 /min Fadia Patel LPN [facility]to Work Phone: 11-18-2016 10:53-0400 Weight 154.31 kg Fadia Patel LPN [facility] Work Phone: 10-18-2015 15:34-0400 Heart rate 58 /min Kayleigh Tian [place] Work Phone: 10-18-2015 14:20-0400 BMI (Body Mass Index) 49.04 kg/m2 [facility] Work Phone: 10-18-2015 14:20-0400 Body Temperature 98.2 [degF] [facility] Work Phone: 10-18-2015 14:20-0400 Body weight 155.04 kg Kayleigh Tian [facility] Work Phone: 10-18-2015 14:20-0400 BP Diastolic 78 mm[Hg] [facility] Work Phone: 10-18-2015 14:20-0400 BP Systolic 120 mm[Hg] [facility] Work Phone: 10-18-2015 14:20-0400 BSA (Body Surface Area) 2.62 m2 [facility] Work Phone: 10-18-2015 14:20-0400 Pulse (Heart Rate) 60 /min [facility] Work Phone: 10-18-2015 14:20-0400 Pulse Oximetry 98 % [facility] Work Phone: 10-18-2015 14:20-0400 Respiratory Rate 16 /min [facility] Work Phone: 10-18-2015 14:20-0400 Weight 155.04 kg [facility] Work Phone: 08-04-2010 11:20-0400 Height 177.8 cm Maru Chicorelli [facility] Work Phone: 08-04-2010 11:20-0400 Pulse (Heart Rate) 89 /min [facility] Work Phone: Encounters Encounter Date Encounter Type Care Provider Facility Start: 06-23-2018 Patient encounter procedure SERGEY RUSH Facility:[facility] Start: 03-25-2018 End: 03-25-2018 Patient encounter procedure ANIRUDH MUJICA Facility:[facility] Start: 12-19-2017 End: 12-20-2017 Patient encounter procedure CHRISTOPHER R JOANNE Facility:[facility] Start: 12-12-2017 Patient encounter procedure CHRISTOPHER R JOANNE Facility:[facility] Start: 10-21-2017 End: 10-21-2017 Patient encounter procedure IMCA Facility:[facility] Start: 09-12-2017 End: 09-12-2017 Patient encounter procedure CHRISTOPHER R JOANNE Facility:[facility] Start: 09-02-2017 End: 09-02-2017 Patient encounter procedure Saran Nolascogle Work Phone: [facility] Start: 09-02-2017 Results Only Saran Nolascogle Work Phone: [facility] Start: 09-02-2017 End: 09-04-2017 Evaluation and management of inpatient CHRISTOPHER R JOANNE Facility:[facility] Start: 08-26-2017 End: 08-27-2017 Patient encounter procedure SERGEY RUSH Facility:[facility] Start: 08-21-2017 End: 08-21-2017 Patient encounter procedure CHRISTOPHER R JOANNE Facility:[facility] Start: 07-22-2017 End: 07-22-2017 Patient encounter procedure SERGEY RUSH Facility:[facility] Start: 07-08-2017 Patient encounter procedure ELTON GONZALEZ Facility:[facility] Start: 06-25-2017 Patient encounter procedure SERGEY RUSH Facility:[facility] Start: 06-24-2017 End: 06-24-2017 Patient encounter procedure SERGEY RUSH Facility:[facility] Start: 06-10-2017 End: 06-10-2017 Patient encounter procedure ELTON GONZALEZ Facility:[facility] Start: 05-20-2017 Patient encounter procedure ELTON GONZALEZ Facility:[facility] Start: 05-13-2017 End: 05-13-2017 Patient encounter procedure SERGEY RUSH Facility:[facility] Start: 04-25-2017 Patient encounter procedure SERGEY RUSH Facility:[facility] Start: 04-14-2017 End: 04-14-2017 Patient encounter procedure Saran Joanne Work Phone: [facility] Start: 04-14-2017 Results Only Saran Nolascogle Work Phone: [facility] Start: 04-14-2017 End: 04-14-2017 Evaluation and management of inpatient SUZE RUBIO Facility:[facility] Procedures Date Procedure Procedure Detail Performing Clinician Start: 09-02-2017 CONVERTED SURGICAL PATHOLOGY Saran Rubio Work Phone: Start: 08-26-2017 Antibody screen HOLLEY RUBIO Plan of Treatment Date Care Activity Detail Author Start: 12-28-2019 Influenza vaccination INFLUENZA (#1) [facility] Start: 2018 SHINGRIX VACCINE (1 of 2) SHINGRIX VACCINE (1 of 2) [facility] Start: 2018 Tuberculosis screening COLORECTAL CANCER SCREENING,SEE MODIFIER [facility] Start: 01-09-2017 End: 01-09-2017 Appointment Appointment [facility] Work Phone: Start: 11-18-2016 End: 11-18-2016 Appointment Appointment [facility] Work Phone: Start: 08-16-2016 End: 08-20-2016 Extremity study Venous Doppler LE Right [facility] Work Phone: Start: 08-16-2016 End: 08-16-2016 Us xtr non-vasc lmtd US Extremity, nonvascular; limited, anatomic specific [facility] Work Phone: Start: 07-10-2016 End: 07-10-2016 Physical Therapy [facility], [address] [place] [address], [address] [facility] Work Phone: Start: 07-04-2016 End: 07-04-2016 Extremity study Venous Doppler LE Right [facility] Work Phone: Start: 04-23-2016 End: 05-29-2016 Mri jnt of lwr extre w/o dye MRI Joint Lower Extremity [facility] Work Phone: Start: 02-22-2016 End: 03-05-2016 *BFRW - Body Fluid RBC, WBC & DIFF *BFRW - Body Fluid RBC, WBC & DIFF [facility] Work Phone: Start: 02-22-2016 End: 03-05-2016 Bacteria identified in Body fluid by Culture *CUBF- Culture, Body Fluid [facility] Work Phone: Start: 02-22-2016 End: 03-05-2016 Crystals [type] in Body fluid by Light microscopy *GABRIELA - Crystals, Body Fluid [facility] Work Phone: Start: 02-22-2016 End: 03-05-2016 Glucose *GLUBF - Glucose, Body Fluid [facility] Work Phone: Start: 02-22-2016 End: 03-05-2016 Glucose mass conc (Body fld) *GLUBF - Glucose, Body Fluid [place] [facility] Work Phone: Start: 02-22-2016 End: 03-05-2016 Protein in fluid *PROBF - Protein, Body Fluid [facility] Work Phone: Start: 11-23-2015 End: 12-05-2015 Podiatry Referral Podiatry Referral Ghulam Mendez, [address], [address], [place], [address] [facility] Work Phone: Start: 10-18-2015 End: 10-18-2015 Electrocardiogram, complete EKG (In office) [facility] Work Phone: Start: 08-31-2015 End: 09-01-2015 Orthopedic Referral Orthopedic Referral Maru Alvares, [facility], [address], [place], [address] [facility] Work Phone: Start: 08-14-2015 End: 08-31-2015 Alanine aminotransferase (ALT) *ALT (SGPT) [facility] Work Phone: Start: 08-14-2015 End: 08-31-2015 Aspartate aminotransferase (AST) *AST (SGOT) [facility] Work Phone: Start: 08-14-2015 End: 08-31-2015 HbA1c *HgA1C [facility] Work Phone: Start: 08-14-2015 End: 08-31-2015 Lipid panel [AGGREGATE] *Lipid Profile [facility] Work Phone: Start: 08-09-2015 End: 08-11-2015 Other Referral Other Referral [facility], [address], [place], [address] [facility] Work Phone: Start: 04-11-2015 End: 04-17-2015 *CMP Complete Metabolic Panel *CMP Complete Metabolic Panel [facility] Work Phone: Start: 04-11-2015 End: 04-17-2015 *Microalbumin, Creatine Ratio, rand urine *Microalbumin, Creatine Ratio, rand urine [facility] Work Phone: Start: 04-11-2015 End: 04-17-2015 HbA1c *HgA1C [facility] Work Phone: Start: 04-11-2015 End: 04-17-2015 Lipid panel [AGGREGATE] *Lipid Profile [facility] Work Phone: Start: 03-30-2015 End: 03-30-2015 Contrst x-ray, urinary tract X-Ray, KUB [facility] Work Phone: Start: 03-30-2015 End: 03-30-2015 Urinalysis nonauto w/o scope UA Dipstick (Office) [facility] Work Phone: Start: 03-22-2015 End: 03-30-2015 Neurology Referral Neurology Referral Dawson Penny, [address] [place], [address] [facility] Work Phone: Start: 02-13-2015 End: 02-13-2015 X-ray exam, knee, 4 or more X-Ray, Knee [facility] Work Phone: Start: 01-05-2015 End: 01-05-2015 HbA1c HGB A1C (Office) [facility] Work Phone: Start: 1987 Urine microalbumin profile DTAP,TDAP,TD (1 - Tdap) [facility] Start: 1986 ANNUAL PCP TEAM CHRONIC DISEASE VISIT ANNUAL PCP TEAM CHRONIC DISEASE VISIT [facility] Start: 1986 Hepatitis B surface antibody level LDL CHOLESTEROL [facility] Start: 1986 HEPATITIS C SCREENING HEPATITIS C SCREENING [facility] Start: 1986 HIV SCREENING HIV SCREENING [facility] Start: 1984 ONE PNEUMOVAX PRIOR TO AGE 63 ONE PNEUMOVAX PRIOR TO AGE 63 [facility] Start: 1978 [object Object] DIABETIC FOOT EXAM [facility] Start: 1978 Hepatitis B screening URINE ALBUMIN:CREATININE RATIO [facility] Start: 1978 Hepatitis C antibody, confirmatory test DILATED RETINAL EXAM [facility] Start: 1973 HbA1c (Bld) [Mass fraction] HBA1C [facility] Patient Education [facility] Work Phone: Payers Date Payer Category Payer Unknown MMO M[employer] MHS [id number] 2016-Present Indemnity [id number] 1968 Unknown [id number] 1968 Unknown [id number] [id number]8 1968 Unknown [id number] [id number]8 1968 Unknown [id number] 2.16.840.1.223255.3.579.2.278 1968 Unknown [id number] 2.16.840.1.318319.3.579.2.278 1968 Unknown [id number] 2.16.840.1.823161.3.579.2.278 1968 Unknown [id number] 2.16.840.1.018020.3.579.2.278 1968 Unknown [id number] 2.16.840.1.983372.3.579.2.278 1968 Unknown [id number] 2.16.840.1.045100.3.579.2.278 1968 Unknown [id number] 2.16.840.1.154231.3.579.2.278 1968 Unknown [id number] 2.16.840.1.760696.3.579.2.278 1968 Unknown [id number] 2.16.840.1.510532.3.579.2.278 1968 Unknown [id number] 2.16.840.1.116154.3.579.2.278 1968 Unknown [id number] 2.16.840.1.222556.3.579.2.278 1968 Unknown [id number] 2.16.840.1.716305.3.579.2.278 1968 Unknown [id number] 2.16.840.1.801977.3.579.2.278 1968 Unknown [id number] 2.16.840.1.012383.3.579.2.278 1968 Unknown [id number] 2.16.840.1.514277.3.579.2.278 1968 Unknown [id number] 2.16.840.1.286629.3.579.2.278 1968 Unknown [id number] 2.16.840.1.188669.3.579.2.278 1968 Unknown [id number] 2.16.840.1.468670.3.579.2.278 1968 Unknown [id number] 2.16.840.1.447079.3.579.2.278 Unknown [id number] Social History Date Type Detail Facility Start: 04-14-2017 End: 09-02-2017 Tobacco smoking status NHIS Never smoker [facility] Start: 09-02-2017 Tobacco use and exposure Never used [facility] Start: 04-14-2017 End: 09-02-2017 Alcohol intake Current non-drinker of alcohol (finding) [facility] Sex Assigned At Male [facility] Goals Date Patient Goal Desired Activity /State Summary Purpose Family History No Family History Records FoundNo Family History Records Found Advance Directives Documents on File Type Date Recorded 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 Advance Directive(s) 09/02/2017 5:40 AM Additional Source Comments (unrecognized sect ion and content) No Status Records FoundNo Status Records Found INFORMATION SOURCE (unrecogn ized section and content) DATE CREATED AUTHOR AUTHOR'S ORGANIZ ATION 05/14/2019 [facility] Source Comments (unrecognize d section and content) In the event this informatio n is protected by the Federal Confidentiality of Alcohol and Drug Abuse Patient Records regulations: The Federal rules restrict any use of the information to criminally investigate or prosecute any alcohol or drug abuse patient.[facility]bleIn the event this information is protected by the Federal Confidentiality of Alcohol and Drug Abuse Patient Records regulations: The Federal rules restrict any use of the information to criminally investigate or prosecute any alcohol or drug abuse patient.[facility] FOR RECORDS PERTAINING TO PATIENTS WHO ARE OR HAVE BEEN ENROLLED IN A CHEMICAL DEPENDENCY/SUBSTANCEABUSE PROGRAM, SOME INFORMATION MAY BE OMITTED. This clinical summary was aggregated from multiple sources. Caution should be exercised in using it in the provision of clinical care. This summary normalizes information from multiple sources, and as a consequence, information in this document may materially change the coding, format and clinical context of patient data. In addition, data may be omitted in some cases. CLINICAL DECISIONS SHOULD BE BASED ON THE PRIMARY CLINICAL RECORDS. [facility]. provides no warranty or guarantee of the accuracy or completeness of information in this document.
[2023-05-26] MEDS: Smz/Tmp Ds Tablet 1 TABLET PO (13:08)
[2023-05-26] MEDS: Cephalexin 250 MG Capsule 500 MG PO (13:08)
== END 2023-05-26 13:11 | disposition home or self-care (01) ==
PROVIDERS: Emergency Provider Emergency Medicine; PCP Family Medicine; Visit Provider Emergency Medicine
DX: L03.116 Cellulitis of left lower limb (principal); E11.9 Type 2 diabetes mellitus without complications; I10 Essential (primary) hypertension; E78.5 Hyperlipidemia, unspecified; R60.0 Localized edema; Z79.899 Other long term (current) drug therapy; K21.9 Gastro-esophageal reflux disease without esophagitis; Z79.82 Long term (current) use of aspirin; F17.290 Nicotine dependence, other tobacco product, uncomplicated
CPT/HCPCS: 93971; 99283

== ENCOUNTER → 2023-07-11 | Outpatient (CLI) | payer OTHER, SELFPAY ==
--- NOTE | 2023-07-11 10:30 | RAD_ITS ---
STUDY: X-RAY - CERVICAL SPINE REASON FOR EXAM: Male, 53 years old. Pain TECHNIQUE: 3 view(s) of the cervical spine were obtained. COMPARISON: None FINDINGS: Normal anterior atlantoaxial articulation. Normal odontoid process. Normal cervical lordosis. Normal vertebral bodies and endplates. Normal disc space heights. Small bridging anterior spurs noted. The soft tissue structures are unremarkable. RAD/Cerv Spine 2 or 3 Views IMPRESSION: Mild degenerative changes due to anterior spurring. No fracture, prevertebral soft tissue or disc space abnormality Electronically Signed: Angelito Shook MD at 15:35 EDT ,
--- NOTE | 2023-07-11 10:36 | RAD_ITS ---
STUDY: X-RAY - RIGHT SHOULDER REASON FOR EXAM: Male, 53 years old. pain TECHNIQUE: 4 view(s) of the shoulder. COMPARISON: None. FINDINGS: Normal glenohumeral articulation. Normal acromioclavicular joint. Normal acromion. Normal humeral head and visualized proximal humerus. The soft tissue structures are unremarkable. Normal visualized pulmonary apex. RAD/Shoulder min 2 Views IMPRESSION: Normal x-ray examination of the shoulder. Electronically Signed: Angelito Shook MD at 11:14 EDT ,
--- NOTE | 2023-07-11 10:41 | RAD_ITS ---
STUDY: X-RAY - LEFT SHOULDER REASON FOR EXAM: Male, 53 years old. pain TECHNIQUE: 4 view(s) of the shoulder. COMPARISON: None. FINDINGS: Normal glenohumeral articulation. Mild narrowing of the acromioclavicular joint. Normal acromion. Normal humeral head and visualized proximal humerus. The soft tissue structures are unremarkable. Normal visualized pulmonary apex. RAD/Shoulder min 2 Views IMPRESSION: No fracture or suspicious osseous lesion Mild narrowing of the acromioclavicular joint. Electronically Signed: Angelito Shook MD at 15:35 EDT ,
== END | disposition home or self-care (01) ==
LOC: MTRAD 10:27
PROVIDERS: PCP Family Medicine; Referring Provider Orthopaedic Surgery; Visit Provider Orthopaedic Surgery
DX: M25.512 Pain in left shoulder (principal); M25.511 Pain in right shoulder; M54.2 Cervicalgia
CPT/HCPCS: 72040; 73030

== ENCOUNTER 2023-08-23 13:22 | Emergency (ER) | payer OTHER, SELFPAY ==
[2023-08-23 13:24] VITALS: BP 135/84; PULSE 89; RESP 14; TEMP 36.4; O2SAT 98; BMI 38.9
--- NOTE | 2023-08-23 13:36 | RAD_ITS ---
EXAM: XR RIGHT FOOT COMPLETE, 3 OR MORE VIEWS CLINICAL INDICATION: fall TECHNIQUE: Frontal, lateral and oblique views of the right foot. COMPARISON: No relevant prior studies available. FINDINGS: BONES/JOINTS: No acute fracture or subluxation. Plantar calcaneal spur noted. SOFT TISSUES: Normal. No soft tissue swelling or gas. No radiopaque foreign body. RAD/Foot min 3 Views IMPRESSION: No acute bone or joint abnormality. Electronically Signed: Jarret Sung MD at 14:44 EDT ,
--- NOTE | 2023-08-23 13:37 | EDS_ITS ---
HPI <ELEAZAR Mandujano - Last Filed: 08/23/23 14:10> History of Present Illness Chief Complaint: Fall Narrative Narrative: Patient is a 53-year-old male with history of hypertension, obesity presents to the emergency department after mechanical fall. Patient states he was cleaning carpets, his feet were wet when he went to an linoleum floor, he smacked his toes against an object, his left knee got turned backwards, and he twisted his left ankle. He denies any head or neck injury. Patient was able to get up on his own. This happened approximately 2 hours ago. He is here for evaluation. Biggest complaint is his right foot or left ankle left knee. He did have bilateral knee replacements 1 year ago. PFS <ELEAZAR Mandujano - Last Filed: 08/23/23 14:10> [facility] Medical History Acute bronchitis, unspecified Alcohol use Arthritis Arthritis Back pain Chronic wound of extremity Contact with and (suspected) exposure to other viral communicable diseases CPAP (continuous positive airway pressure) dependence CPAP (continuous positive airway pressure) dependence Degenerative disc disease Diabetes Disorder of uvula DVT (deep venous thrombosis) Gastric reflux GERD (gastroesophageal reflux disease) Hemorrhoids History of deep vein thrombosis History of diabetes mellitus History of echocardiogram History of hemorrhoids History of pain when walking History of steroid therapy History of stress test Hypertension Hypertension Lab test negative for COVID-19 virus Leg cramps Obesity (BMI 35.0-39.9 without comorbidity) Obstructive sleep apnea 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 Smoker Strain of right hand Traumatic open wound of right lower leg 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 Wears glasses Home Medications calcium citrate 315 mg-vitamin D3 5 mcg (200 unit) tablet (Calcium Citrate + D) 2 tab PO QHS SUPPLEMENT 04/25/20 [History Last Taken 01/27/23] multivitamin 2 cap PO DAILY SUPPLEMENT 04/25/20 [History Last Taken 01/27/23] amlodipine 5 mg tablet 5 mg PO DAILY BP 08/04/20 [History Last Taken 03/11/23] mecobalamin (vitamin B12) 1,000 mcg disintegrating tablet,sublingual 1,500 mcg sublingual DAILY SUPPLEMENT 08/04/20 [History Last Taken 01/27/23] metoprolol succinate 25 mg tablet,extended release 24 hr 25 mg PO DAILY BP 08/04/20 [History Last Taken 03/11/23] pantoprazole 20 mg tablet,delayed release (Protonix) 40 mg PO DAILY GERD 01/29/21 [History Last Taken 03/11/23] celecoxib 200 mg capsule (Celebrex) 200 mg PO BID PAIN 05/23/21 [History Last Taken 01/19/23] cholecalciferol (vitamin D3) 10 mcg (400 unit) capsule (Vitamin D3) 10 mcg PO DAILY SUPPLEMENT 01/08/22 [History Last Taken 01/27/23] magnesium 1 tab PO QHS SUPPLEMENT 01/08/22 [History Last Taken 01/27/23] gabapentin 100 mg capsule 100 mg PO BID PAIN 02/11/22 [History Last Taken 03/11/23] aspirin 81 mg tablet,delayed release (Adult Aspirin Regimen) 81 mg PO DAILY SUPPLEMENT 10/02/22 [History Last Taken 03/10/23] acetaminophen 500 mg tablet 1,000 mg (2 x 500 mg) PO Q6H PRN #100 tabs 01/29/23 [Rx Last Taken Unknown] hydrocodone-acetaminophen 5-325mg 5mg-325mg 1 tab PO Q6H PRN PRN Pain 3 days #10 TABLETS 08/23/23 [Rx Last Taken Unknown] Allergy/AdvReac Type Severity Reaction Status Date / Time olmesartan medoxomil Allergy Itching Verified 08/23/23 13:24 [From Rona] Family History Other Breast cancer Surgical History Deviated septum H/O foot surgery H/O hernia repair H/O knee surgery H/O shoulder surgery History of arthroscopic knee surgery History of gastric restrictive surgery History of shoulder surgery History of surgical removal of ganglion cyst History of tonsillectomy History of tonsillectomy History of umbilical hernia repair Hx of arthroplasty Hx of colonoscopy Hx of gastric bypass hx of gastric sleeve Hx of knee surgery Social History Smoking Status: Current some day smoker tobacco type: cigars alcohol intake: current alcohol intake frequency: holidays/special occasions only ROS <ELEAZAR Mandujano - Last Filed: 08/23/23 14:10> ROS ED ROS Narrative Constitutional: Negative for fever, chills, weight loss, weakness Eyes: Negative for vision loss, vision change, double vision ENT: Negative for any sore throat, ear pain, congestion Cardiovascular: Negative for any chest pain, tightness, palpitations Respiratory: Negative for any cough, sputum production, hemoptysis, dyspnea, dyspnea on exertion, orthopnea Gastrointestinal: Negative for any abdominal pain, nausea, vomiting, diarrhea, constipation, blood in stool, blood in vomit : Negative for any urinary frequency, dysuria, retention, blood in urine Muscle skeletal: Negative for any neck pain, back pain. Positive for right foot pain, left ankle, left knee Neurological: Negative for any headache, syncope, dizziness Skin: Negative for any rashes, itching, abrasions, lacerations Psychiatric: Negative for any depression, anxiety, stress, suicidal ideation, homicidal ideation Hematologic: Negative for any excessive bruising, easy bleeding EXAM <Gonsalo Hwang NP-C - Last Filed: 08/23/23 14:10> Physical Exam Narrative Exam Narrative: Vital signs reviewed. HEET: Head normocephalic atraumatic, TMs clear bilaterally. Posterior pharynx is clear, moist mucous membranes. Nares clear bilaterally. Neck: Supple with no lymphadenopathy or tenderness. No signs of meningismus. Cardiac: Regular rate and rhythm no murmurs gallops or rubs, equal peripheral pu lses bilaterally. Respiratory: Lungs clear to auscultation bilaterally. No chest tenderness. Abdomen: Soft, nontender, nondistended. No abdominal bruit or pulsatile masses. No hepatosplenomegaly Extremities: No peripheral edema, no signs of gross trauma or deformity. Active full range of motion of all extremities. Patient has bilateral intact extensor Meggezones. Patient's pain to the right foot is mostly along the fifth toe as well as the fifth metatarsal, the medial aspect of the ankle on the left as well as the left knee. There is some swelling to the left knee. Patient is able to flex and extend. +2 pedal pulses noted. No neurological focal deficit. Neuro: Cranial nerves II through XII intact, no focal neurological deficits. Skin: Clean dry and intact with no rash, purpura, petechiae, vesicles or pustules. Backs/flank: No CVA tenderness, no midline spinal tenderness, no deformity. Psych: Normal mood and affect. No SI, HI or acute psychosis. Const Vital Signs: 08/23/23 13:24 08/23/23 13:32 Temperature 97.6 F L Temperature Source Temporal Pulse Rate 89 Respiratory Rate 14 Respiratory Effort Normal Respiratory Depth Normal Respiratory Pattern Normal Blood Pressure 135/84 H Blood Pressure Mean 101 Pulse Ox 98 Oxygen Delivery Method Room Air Room Air Positive well nourished and well developed General Appearance ED: well developed <Dr. Jim Mckay MD - Last Filed: 08/23/23 14:21> Physical Exam Const Vital Signs: 08/23/23 13:24 08/23/23 13:32 Temperature 97.6 F L Temperature Source Temporal Pulse Rate 89 Respiratory Rate 14 Respiratory Effort Normal Respiratory Depth Normal Respiratory Pattern Normal Blood Pressure 135/84 H Blood Pressure Mean 101 Pulse Ox 98 Oxygen Delivery Method Room Air Room Air MDM <ELEAZAR Mandujano - Last Filed: 08/23/23 14:10> MDM Radiography Diagnostic Testing: Clinical Impression(s) from Imaging Studies Ankle X-Ray 08/23/23 13:45 IMPRESSION: Acute versus chronic avulsion fracture of the medial malleolus. Soft tissue swelling. Electronically Signed: Jarret Sung MD at 14:04 EDT , Knee X-Ray 08/23/23 13:45 IMPRESSION: Intact lead spaces. Small knee joint effusion. Soft tissue swelling. Electronically Signed: Jarret Sung MD at 14:09 EDT , Treatment and Re-Evaluation :: Patient appears generally well, patient appears nontoxic, vital signs are stable. Patient presents to the emergency department with complaints of right foot. COVID left ankle pain, left knee pain. Patient will receive x-rays of these extremities concerning for any contusion versus fracture versus dislocation. All radiologic examinations were read, reviewed by the emergency department attending. From these reads, a plan of care will be put in place. Patient given Tylenol here. Patient's x-ray of the later the right foot was unremarkable, left knee was unremarkable, and the hardware appeared to be in place. Patient is ankle x-ray did show a distal medial nondisplaced fracture of the distal tibia. Patient placed in a walking boot. He will be given pain medicine for home. Instructed to ice and elevate. He will follow-up with [facility] outpatient. All questions were answered, patient stable for discharge. <Dr. Jim Mckay MD - Last Filed: 08/23/23 14:21> [facility] MDM Narrative Medical decision making narrative: I have personally performed a face to face assessment of the patient and have reviewed the DAREN Note. I performed a substantive portion of the visit including all aspects of the following. My fontanez findings include: History is remarkable for left ankle/foot and knee pain status post fall. He was washing carpet. He went on the linoleum and slipped. He states his right leg went 1 way his left went the other. He is status post left total knee arthroplasty this past fall by Dr. Jason Fritz. He denies head trauma. Nuys neck pain. He denies paresthesia, anesthesia or motor weakness. Exam is remarkable for pain medial mid left thigh. There is swelling of the left knee compared to the right. He believes this is chronic. There is pain outpatient over the left patella and there is a bruise noted over the left patella. He is able to extend to 180 degrees and flex to 90 degrees. There is no joint line tenderness. There is discomfort with Yaron's test. There is no laxity. There is no pain palpation the popliteal fossa nodes or palpable mass or fullness appreciated. There is pain outpatient over the tip of the medial malleolus. There is slight soft tissue swelling compared to the uninjured extremity. There is also pain palpation over the tarsal bones. There is no pain the patient with the base of the fifth metatarsal or over the lateral malleolus. There is no discomfort with logrolling of the left lower extremity. There is no pain ovation of the left ankle area or greater trochanteric region. Medical Decision Making x-ray of the knee and ankle were obtained. 4 views of the knee was performed and 3 of the ankle. Per my independent review there is a small nondisplaced medial malleolus fracture. The knee x-ray reveals the prosthesis to be in proper position. There is no evidence of fracture of the patella. Other additions or changes: Discharged to home to follow-up with Dr. Jason Fritz per patient's request. Radiography Chest X-Ray - ED: Read by ED Physician (The x-rays were independent reviewed interpreted by me at 1400.) Diagnostic Testing: Clinical Impression(s) from Imaging Studies Ankle X-Ray 08/23/23 13:45 IMPRESSION: Acute versus chronic avulsion fracture of the medial malleolus. Soft tissue swelling. Electronically Signed: Jarret Sung MD at 14:04 EDT , Knee X-Ray 08/23/23 13:45 IMPRESSION: Intact lead spaces. Small knee joint effusion. Soft tissue swelling. Electronically Signed: Jarret Sung MD at 14:09 EDT , Discharge Plan Triage Chief Complaint: Fall ED Midlevel Provider: Gonsalo Hwang ED Provider: Jim Mckay Dx/Rx/DC Orders Clinical Impression: Fracture of distal end of left tibia, Avulsion fracture Instructions: How Bones Heal, ED Ankle Fracture Prescriptions: New hydrocodone-acetaminophen 5-325 mg tablet 1 tab PO Q6H PRN PRN (Reason: Pain) 3 Days Qty: 10 0RF No Action calcium citrate-vitamin D3 [Calcium Citrate + D] 315 mg-5 mcg (200 unit) tablet 2 tab PO QHS multivitamin capsule 2 cap PO DAILY mecobalamin (vitamin B12) 1,000 mcg tablet,disintegrating 1,500 mcg SL DAILY Rx Instructions: place tablet under tongue and allow to dissolve for at least30 secs before swallowing amlodipine 5 mg tablet 5 mg PO DAILY metoprolol succinate 25 mg tablet extended release 24 hr 25 mg PO DAILY pantoprazole [Protonix] 20 mg tablet,delayed release (DR/EC) 40 mg PO DAILY gabapentin 100 mg capsule 100 mg PO BID aspirin [Adult Aspirin Regimen] 81 mg tablet,delayed release (DR/EC) 81 mg PO DAILY Hold Instructions: Resume on 02/12/23. celecoxib [Celebrex] 200 mg Capsule 200 mg PO BID Hold Instructions: Resume on 02/28/23. While taking anti-coagulant cholecalciferol (vitamin D3) [Vitamin D3] 10 mcg (400 unit) Capsule 10 mcg PO DAILY magnesium Tablet 1 tab PO QHS acetaminophen [acetaminophen] 500 mg tablet 1,000 mg PO Q6H PRN Qty: 100 0RF Primary Care Provider: Renzo Beatty Referrals: Jason Fritz DO [Med Staff - Active Staff] - Renzo Beatty DO [Primary Care Provider] - Activity Restrictions/Additional Instructions: Use the walking boot when you are up and around. Ice. Follow-up outpatient Disposition Disposition: Home, Self Care
--- NOTE | 2023-08-23 13:45 | RAD_ITS ---
EXAM: XR LEFT KNEE COMPLETE, 4 OR MORE VIEWS CLINICAL INDICATION: fall TECHNIQUE: Four or more views of the left knee. COMPARISON: No relevant prior studies available. FINDINGS: BONES/JOINTS: Knee prosthesis in place in satisfactory position. No acute fracture or subluxation. No joint effusion is suggested. SOFT TISSUES: Anterior soft tissue swelling. No radiopaque foreign body. RAD/Knee 4 or More Views IMPRESSION: Intact lead spaces. Small knee joint effusion. Soft tissue swelling. Electronically Signed: Jarret Sung MD at 14:09 EDT ,
--- NOTE | 2023-08-23 13:45 | RAD_ITS ---
EXAM: XR LEFT ANKLE COMPLETE, 3 OR MORE VIEWS CLINICAL INDICATION: fall TECHNIQUE: Frontal, lateral and oblique views of the left ankle. COMPARISON: No relevant prior studies available. FINDINGS: BONES/JOINTS: Question acute versus chronic small avulsion fracture of the inferior portion of the medial malleolus. Bony structures are otherwise intact. Plantar calcaneal spur noted. SOFT TISSUES: Soft tissue swelling is present. No radiopaque foreign body. RAD/Ankle min 3 Views IMPRESSION: Acute versus chronic avulsion fracture of the medial malleolus. Soft tissue swelling. Electronically Signed: Jarret Sung MD at 14:04 EDT ,
[2023-08-23] MEDS: Acetaminophen 500 MG Tablet 1000 MG PO (13:54)
[2023-08-23 14:30] VITALS: BP 137/82; PULSE 87; RESP 18; TEMP 36.7; O2SAT 99
== END 2023-08-23 14:43 | disposition home or self-care (01) ==
LOC: ED 14:15
PROVIDERS: Emergency Provider Emergency Medicine; PCP Family Medicine; Visit Provider Emergency Medicine
DX: S82.302A Unspecified fracture of lower end of left tibia, initial encounter for closed fracture (principal); E11.9 Type 2 diabetes mellitus without complications; Z96.659 Presence of unspecified artificial knee joint; I10 Essential (primary) hypertension; F17.200 Nicotine dependence, unspecified, uncomplicated; W01.10XA Fall on same level from slipping, tripping and stumbling with subsequent striking against unspecified object, initial encounter; Y93.89 Activity, other specified; G47.33 Obstructive sleep apnea (adult) (pediatric); Z99.89 Dependence on other enabling machines and devices; Z79.899 Other long term (current) drug therapy
CPT/HCPCS: 73564; 73610; 73630; 99283

== ENCOUNTER 2023-10-10 09:00 | Outpatient (RCR) | payer OTHER, SELFPAY ==
--- NOTE | 2023-07-23 17:14 | HP.PTEVAL ---
Patient's Visit Information Visit Information Visit Information: MIRIAM BURTON is a 53 year old M referred to Physical Therapy by Dr. Jason Fritz DO with a diagnosis of Back Pain and Neck/Mary Shoulder Pain. Date of Evaluation: 07/23/23 Physical Therapist: Denzel Reyes DPT Visit Plan Frequency: 2x /Week Duration: 6 Weeks Plan: -neutral spine strengthening (begin with PPT endurance/low level stuff and progress from there) -LE strengthening (especially quads and glutes) AND UE strengthening (began with YTB for HEP, scapular/postural muscles, IR/ER) -thoracic and lumbar mobility (open books, seated or supine ext, PAs...) -STM and cupping to lumbar and thoracic spine Pt has long hx of chronic pain and is fairly sedentary, working to strengthen both shoulders, core, and LEs but very stiff and overall painful in low back (HEP: seated thoracic and lumbar ROM, seated thoracic rotation, prone hip ext, S/L hip ABD, YTB horiz ABD, banded D2 flex, banded IR/ER, levator stretch, PPT) Subjective Subjective: Pt presents to PT with L sided back/hip pain and mary shoulder. Pt noticed shoulder pain began 3-4 weeks ago with no MARTINA. Pt denies any stiffness in shoulders, but reports pain with movement, especially with reaching behind him. No pattern in pain, current pain is a 1/10 but jumps up to a 3/10 at end range motion behind his back. Pt has been having difficulty sleeping, is normally a side sleeper but shoulder pain limits this. Back pain hurts worse when laying down on back, standing for long periods and laying flat in bed all increase back pain. Pt saw Dr. Stevens a week ago and received bilateral shoulder injections, which have helped a little with pain. Pt receives regular injections for his back and will not have one for another 90 days. Pt notices hip/back pain the most when straightening up from bending over. Pt has a hx of DDD in his neck and back. Pt describes shoulder pain as click with movement with the pain in the superior aspect of the L shoulder. Pt is not currently working, does a lot of housework, relatively sedentary lifestyle. Goals: improve sleep, reduce pain Pain Right Shoulder: Pain Intensity (Out of 10): 1 Left Shoulder: Pain Intensity (Out of 10): 1 Back: Pain Intensity (Out of 10): 4 Objective Objective: ROM: Lumbar - flex 100% with Gowers sign when standing back up and repeated motions worse, ext 100% okay with 1 rep but increased with 5, L rotation 50% stiffness wtih OP, R rotation 75% stiffness with OP (improved to mary 75% following STM and cupping) Thoracic - mod to severe hypomobility with movement, sore after seated thoracic ext Hip - IR/ER WNL, some pain in low back with end range R hip flex, tightness in mary HS and quads with increased discomfort on L L shoulder - ABD 160 AROM, pain begins at 110, ER to base of occiput, IR to T9 end range painful R shoulder - ABD 175 with some pain, ER to base of occiput, IR to T9 end range painful MMT: L - hip flex 3/5 pain, hip ext 2+/5, hip ABD 3/5 pain, knee flex 3 pain, knee ext 4/5 some pain in knee R - hip flex 3+/5, hip ext 3+/5, hip ABD 3+/5, knee flex 4/5, knee ext 4+/5 PALPATION: TTP in mary [place], SCM, pecs, proximal bicep, paraspinals of thoracic/lumbar region, glute med on L POSTURE: FHP with rounded shoulders BELLY PRESS: painful mary (+) [place]: (-) SPEEDS: (+) EMPTY CAN: (+) more painful than speeds RADHA: (-) HORNBLOWERS: (-) Balance/Special Test Scores Oswestry Low Back Score: 18 Quick DASH Score: 38.6350 Goals Goal 1:: Pt will be able to stand for 30+ min with <2/10 pain Goal Time Frame: 6-8 Weeks Goal 2:: Pt will be able to sleep for 6+ hours with <3 instances of waking up from pain Goal Time Frame: 6-8 Weeks Goal 3:: Pt will demonstrate symmetrical LE strength Goal Time Frame: 4-6 Weeks Goal 4:: Pt will demonstrate full lumbar ROM with <2/10 pain Goal Time Frame: 4-6 Weeks Goal 5:: Pt will demonstrate 4+/5 strength in mary UEs with <2/10 pain Goal Time Frame: 6-8 Weeks Rehabilitation Potential Physical Therapy Diagnosis: Pt presents to PT with back pain, shoulder pain, decreased lumbar ROM, decreased UE/LE strength, thoracic hypomobility, and increased tightness in thoracic/lumbar spine. Pt would benefit from skilled PT services to address pain, ROM, and strength and to promote increased physical activity at home needed for improved chronic pain management. Rehabilitation Potential: Fair Anticipated Interventions Patient/Client Instruction: Educate patient on: Condition, Plan of Care and Benefits of Fitness Program For the Purpose of:: To decrease pain, To decrease swelling/inflammation, To increase ROM, To improve muscle performance and motor function, To improve ability to perform ADL's, To increase tolerance to activity/condition/position, To improve performance and independence with ADL's, To decrease level of supervision to perform tasks, To improve ability of physical actions for home/community/work/leisure, To improve health of tissue, To decrease soft tissue restriction, To increase flexibility/ROM, To improve endurance, To improve safety with gait, To assume or resume ADL's, To improve health and function, To foster healthy habits, To improve self management, To improve ability to perform tasks related to life management and To improve tolerance to ADL's Therapeutic Exercise to Include: Strength training, Body mechanics, Postural training, Flexibilty training, Neuromotor development, Passive ROM, Active ROM, Dynamic Lumbar Stabilization, Miller Exercises and Scapular Strength/Stabilization For the Purpose of:: To decrease pain, To decrease swelling/inflammation, To increase ROM, To improve muscle performance and motor function, To improve ability to perform ADL's, To increase tolerance to activity/condition/position, To improve performance and independence with ADL's, To improve ability of physical actions for home/community/work/leisure, To improve health of tissue, To decrease soft tissue restriction, To increase flexibility/ROM, To improve safety with gait, To assume or resume ADL's, To improve health and function, To foster healthy habits, To improve self management, To improve ability to perform tasks related to life management and To improve tolerance to ADL's Manual Therapy Techniques to Include: Mobilization, Passive ROM and Soft tissue mobilization For the Purpose of:: To decrease pain, To decrease swelling/inflammation, To increase ROM, To increase oxygenation perfusion, To improve muscle performance and motor function, To improve health of tissue, To decrease soft tissue restriction and To increase flexibility/ROM TENS: Yes Cryotherapy (ice pack, ice massage): Yes Thermo therapy (hot pack): Yes Ultrasound (thermal/non thermal): Yes Pelvic traction supine: Yes For the Purpose of:: To decrease pain and To decrease swelling/inflammation Text: Thank you for the opportunity to evaluate your patient. For Medicare and Medicare HMO plans, please review the plan of care and approve it. It will need to be FAXED BACK to us at [phone] for Medicare purposes. For Medicare only, by signing this I certify the plan of care. Please let me know if there are questions or concerns regarding this plan of care. Physician Signature: Date:
--- NOTE | 2023-08-27 19:24 | HP.PTREVAL ---
Re-Evaluation Intro: Dr. Jason Fritz, DO, It has been my pleasure to treat MIRIAM BURTON over the last 8 visits for Back Pain and Neck/Mary Shoulder Pain. Please see the progress note below for an update on the physical therapy plan of care! Subjective Subjective: Pt. is here today for a re assessment after sustaining a distal tibial avulsion fracture. Pt. reports slipping on a puddle of water in his house. Pt. was seen by his physician who reports he is okay to continue with aquatic PT. He would like him to also add in knee ROM, especially his L knee after causing some increased pain from falling on it. He is in a boot, but able to be out for aquatic therapy and at home. Objective Objective/Function: Pt. was re assessed today after falling last week when he slipped in water at home. He is currently in a CAM boot with avulsion distal tibial fracture. He is okay to be out of boot for aquatic exercises and at home, but needs to be in boot while out in community. He reports that the pool has been helpful. He report decreased pain when in the pool, but when he gets out he feels the weight back on his spine. MMT: Core strength: poor. RLE: hip: flexion 18#, abd 14#, ext 13#. LLE: flexion 12#, abd 11#, ext 12#. GAIT: he is ambulating with a CAM boot thus having increased lateral hip sway during boot. I would like him to work on core strengthening in aquatic setting. He was having increased issues with squats, so we will avoid this as well as any strengthening of L ankle musculature until cleared by physician. Plan Plan Plan: Core and hip strengthening in aquatic setting. Avoid squatting due to B knee pain and avoid L ankle strengthening/stress currently. Consider deep water strengthening, stability exercises and hip strengthening. May use deep water hangs for light distraction. Continue with UB strengthening as well, focus on stability. Balance/Gait/Functional tests Balance/Special Test Scores Oswestry Low Back Score: 18 Quick DASH Score: 38.6350 Goals Goals Goal 1:: Pt will be able to stand for 30+ min with <2/10 pain Goal Time Frame: 6-8 Weeks Goal Progress: Progressing Goal 2:: Pt will be able to sleep for 6+ hours with <3 instances of waking up from pain Goal Time Frame: 6-8 Weeks Goal Progress: Progressing Goal 3:: Pt will demonstrate symmetrical LE strength Goal Time Frame: 4-6 Weeks Goal Progress: Progressing Goal 4:: Pt will demonstrate full lumbar ROM with <2/10 pain Goal Time Frame: 4-6 Weeks Goal Progress: Progressing Goal 5:: Pt will demonstrate 4+/5 strength in mary UEs with <2/10 pain Goal Time Frame: 6-8 Weeks Goal Progress: Progressing Anticipated Interventions Anticipated Interventions Patient/Client Instruction: Educate patient on: Condition, Plan of Care and Benefits of Fitness Program For the Purpose of:: To decrease pain, To decrease swelling/inflammation, To increase ROM, To improve muscle performance and motor function, To improve ability to perform ADL's, To increase tolerance to activity/condition/position, To improve performance and independence with ADL's, To decrease level of supervision to perform tasks, To improve ability of physical actions for home/community/work/leisure, To improve health of tissue, To decrease soft tissue restriction, To increase flexibility/ROM, To improve endurance, To improve safety with gait, To assume or resume ADL's, To improve health and function, To foster healthy habits, To improve self management, To improve ability to perform tasks related to life management and To improve tolerance to ADL's Therapeutic Exercise to Include: Strength training, Body mechanics, Postural training, Flexibilty training, Neuromotor development, In an aquatic setting, Passive ROM, Active ROM, Dynamic Lumbar Stabilization, Miller Exercises and Scapular Strength/Stabilization For the Purpose of:: To decrease pain, To decrease swelling/inflammation, To increase ROM, To improve muscle performance and motor function, To improve ability to perform ADL's, To increase tolerance to activity/condition/position, To improve performance and independence with ADL's, To improve ability of physical actions for home/community/work/leisure, To improve health of tissue, To decrease soft tissue restriction, To increase flexibility/ROM, To improve safety with gait, To assume or resume ADL's, To improve health and function, To foster healthy habits, To improve self management, To improve ability to perform tasks related to life management and To improve tolerance to ADL's Manual Therapy Techniques to Include: Mobilization, Passive ROM and Soft tissue mobilization For the Purpose of:: To decrease pain, To decrease swelling/inflammation, To increase ROM, To increase oxygenation perfusion, To improve muscle performance and motor function, To improve health of tissue, To decrease soft tissue restriction and To increase flexibility/ROM TENS: Yes Cryotherapy (ice pack, ice massage): Yes Thermo therapy (hot pack): Yes Ultrasound (thermal/non thermal): Yes Pelvic traction supine: Yes For the Purpose of:: To decrease pain and To decrease swelling/inflammation Re-Evaluation Ending Re-evaluation ending: Please do not hesitate to contact me at [phone] by phone or if you have questions or concerns regarding this new plan of care! Sincerely, CHAPARRITA StoneT
--- NOTE | 2023-09-26 10:52 | HP.PTREVAL ---
Re-Evaluation Intro: Dr. Jason Fritz, DO, It has been my pleasure to treat MIRIAM BURTON over the last 15 visits for Back Pain and Neck/Mary Shoulder Pain. Please see the progress note below for an update on the physical therapy plan of care! Subjective Subjective: Pt. reports having 2/10 pain in his back, and 2/10 pain in mid thoracic region. Pt. reports physician is okay with him working on LE strengthening, but not to stress medial distal tibia. Pt. reported minimal no pain at medial tibia. Objective Objective/Function: Pt. is sleeping well for 6+ hours, but does use some medication. He reports being able to walk in stores for 1+ hours with out too much much pain. LUMBAR SPINE ROM: flexion nil loss NE, ext min loss NE, SB min loss bilat increase increase NW, rotation min loss bilat increase NW. MMT: RLE; knee ext: 41.5#, flexion 34.8; hip flexion: 27.2#, abd 42.2# LLE: knee ext: 32.3#, flexion 21.9#; hip flexion: 32.6#, abd 38.7# 6 MWT 1403' Increased pain with walking, mostly in lumbar spine region. gait: pt. has limited arm swing, and sway back posture. Pt. does have some anterior L ankle pain, I feel this is more of an anterior tibial talar impingement. I recommended that he work on some G/S stretching as well. Plan Plan Plan: Pt. to be seen x2 a week for 2 more weeks. Focus on BLE and core strengthening. Use a more graded approach to strengthening as tolerated. Balance/Gait/Functional tests Balance/Special Test Scores Oswestry Low Back Score: 18 Quick DASH Score: 38.6350 Goals Goals Goal 1:: Pt will be able to stand for 30+ min with <2/10 pain Goal Time Frame: 6-8 Weeks Goal Progress: Goal Met Goal 2:: Pt will be able to sleep for 6+ hours with <3 instances of waking up from pain Goal Time Frame: 6-8 Weeks Goal Progress: Progressing Goal 3:: Pt will demonstrate symmetrical LE strength Goal Time Frame: 4-6 Weeks Goal Progress: Progressing Goal 4:: Pt will demonstrate full lumbar ROM with <2/10 pain Goal Time Frame: 4-6 Weeks Goal Progress: Progressing Goal 5:: Pt will demonstrate 4+/5 strength in mary UEs with <2/10 pain Goal Time Frame: 6-8 Weeks Goal Progress: Progressing Anticipated Interventions Anticipated Interventions Patient/Client Instruction: Educate patient on: Condition, Plan of Care and Benefits of Fitness Program For the Purpose of:: To decrease pain, To decrease swelling/inflammation, To increase ROM, To improve muscle performance and motor function, To improve ability to perform ADL's, To increase tolerance to activity/condition/position, To improve performance and independence with ADL's, To decrease level of supervision to perform tasks, To improve ability of physical actions for home/community/work/leisure, To improve health of tissue, To decrease soft tissue restriction, To increase flexibility/ROM, To improve endurance, To improve safety with gait, To assume or resume ADL's, To improve health and function, To foster healthy habits, To improve self management, To improve ability to perform tasks related to life management and To improve tolerance to ADL's Therapeutic Exercise to Include: Strength training, Body mechanics, Postural training, Flexibilty training, Neuromotor development, In an aquatic setting, Passive ROM, Active ROM, Dynamic Lumbar Stabilization, Miller Exercises and Scapular Strength/Stabilization For the Purpose of:: To decrease pain, To decrease swelling/inflammation, To increase ROM, To improve muscle performance and motor function, To improve ability to perform ADL's, To increase tolerance to activity/condition/position, To improve performance and independence with ADL's, To improve ability of physical actions for home/community/work/leisure, To improve health of tissue, To decrease soft tissue restriction, To increase flexibility/ROM, To improve safety with gait, To assume or resume ADL's, To improve health and function, To foster healthy habits, To improve self management, To improve ability to perform tasks related to life management and To improve tolerance to ADL's Manual Therapy Techniques to Include: Mobilization, Passive ROM and Soft tissue mobilization For the Purpose of:: To decrease pain, To decrease swelling/inflammation, To increase ROM, To increase oxygenation perfusion, To improve muscle performance and motor function, To improve health of tissue, To decrease soft tissue restriction and To increase flexibility/ROM TENS: Yes Cryotherapy (ice pack, ice massage): Yes Thermo therapy (hot pack): Yes Ultrasound (thermal/non thermal): Yes Pelvic traction supine: Yes For the Purpose of:: To decrease pain and To decrease swelling/inflammation Re-Evaluation Ending Re-evaluation ending: Please do not hesitate to contact me at [phone] by phone or if you have questions or concerns regarding this new plan of care! Sincerely, CHAPARRITA StoneT
== END 2023-10-10 19:00 | disposition home or self-care (01) ==
LOC: PT 09:00
PROVIDERS: PCP Family Medicine; Referring Provider Orthopaedic Surgery; Visit Provider Orthopaedic Surgery
DX: M54.2 Cervicalgia (principal); M79.606 Pain in leg, unspecified; M25.511 Pain in right shoulder; M25.512 Pain in left shoulder
CPT/HCPCS: 97110; 97113; 97140; 97161; 97164; 97530

== ENCOUNTER → 2023-12-20 | Outpatient (CLI) | payer OTHER, SELFPAY ==
--- NOTE | 2023-12-20 09:49 | MRI_ITS ---
STUDY: MRI LEFT SHOULDER REASON FOR EXAM: Male, 53 years old. L SHOULDER PAIN INTO BACK PF NECK X 3 MONTHS TECHNIQUE: Standardized fat and water weighted pulse sequences were obtained in all 3 orthogonal planes. COMPARISON: Left shoulder radiographs dated 07/11/2023. FINDINGS: There is mild supraspinatus, infraspinatus, and subscapularis tendinosis without a full-thickness tear. Normal teres minor tendon. Normal supraspinatus muscle. Normal infraspinatus muscle. Normal subscapularis muscle. Normal teres minor muscle. There is a small glenohumeral joint effusion Normal humeral head and visualized proximal humerus. Normal biceps labral complex. Normal intracapsular long biceps tendon. Normal labrum. Normal capsulo-ligamentous complex. Normal rotator interval. There is hypertrophic acromioclavicular arthrosis, with inferior osteophyte formation, with mild effacement of the supraspinatus myotendinous junction (coronal T2 series 8 images 11-13). There is a Type II morphology (curved), with a neutral orientation. There is no subacromial-subdeltoid bursal fluid. Normal visualized coracohumeral and coracoacromial ligaments. Normal quadrilateral space. Normal axillary space. Normal deltoid muscle. Normal trapezius muscle. MRI/Upper Ext Joint Only(Routine) IMPRESSION: Mild supraspinatus, infraspinatus, and subscapularis tendinosis without a full-thickness rotator cuff tear. Hypertrophic acromioclavicular arthrosis, with inferior osteophyte formation, with mild effacement of the supraspinatus myotendinous junction. Small glenohumeral joint effusion. Electronically Signed: Geremias Jolly MD at 9:32 EDT ,
== END | disposition home or self-care (01) ==
PROVIDERS: PCP Family Medicine; Referring Provider Orthopaedic Surgery; Visit Provider Orthopaedic Surgery
DX: M25.512 Pain in left shoulder (principal); M75.81 Other shoulder lesions, right shoulder; M75.82 Other shoulder lesions, left shoulder
CPT/HCPCS: 73221

== ENCOUNTER → 2024-01-16 | Outpatient (CLI) | payer OTHER, SELFPAY | END | disposition home or self-care (01) | LOC: SL 10:31 | PROVIDERS: PCP Family Medicine; Visit Provider Family Medicine | DX: Z46.89 Encounter for fitting and adjustment of other specified devices (principal) ==

== ENCOUNTER → 2024-01-30 | Outpatient (CLI) | payer OTHER, SELFPAY ==
--- NOTE | 2024-01-30 09:29 | RAD_ITS ---
STUDY: X-RAY - LUMBAR SPINE REASON FOR EXAM: Male, 53 years old. low back pain -- please do upright ap, lat, flex/ext TECHNIQUE: 4 view(s) of the lumbar spine were obtained. COMPARISON: 10/02/2022 FINDINGS: Normal lumbar lordosis. Mild dextroscoliosis centered at L3. 15 mm of anterolisthesis of L5 on S1. This is unchanged on the flexion and extension views. There is multilevel endplate spondylosis of the lumbar vertebrae. There is multi-level degenerative disc disease with multi-level disc space narrowing. Multilevel facet hypertrophy. The soft tissue structures are unremarkable. RAD/L/S Spine Min 4 Views IMPRESSION: Mild dextroscoliosis with diffuse degenerative disc disease. Suspect L5 spondylolysis with grade 2 spondylolisthesis of L5 on S1. MRI may be useful. Electronically Signed: Luiz Vargas MD at 13:36 EDT ,
== END | disposition home or self-care (01) ==
LOC: MTRAD 09:29
PROVIDERS: PCP Family Medicine; Referring Provider Orthopaedic Surgery Orthopaedic Surgery of the Spine; Visit Provider Orthopaedic Surgery Orthopaedic Surgery of the Spine
DX: M54.50 Low back pain, unspecified (principal)
CPT/HCPCS: 72110

== ENCOUNTER → 2024-02-04 | Outpatient (CLI) | payer OTHER, SELFPAY ==
--- NOTE | 2024-02-04 10:05 | RAD_ITS ---
STUDY: X-RAY - RIGHT KNEE REASON FOR EXAM: Male, 53 years old. pain TECHNIQUE: 3 view(s) of the knee. COMPARISON: None. FINDINGS: Normal visualized distal femur. Normal visualized proximal tibia and fibula. Normal proximal tibiofibular articulation. Status post total knee arthroplasty. The prosthesis appears located. No ostial lysis to suggest loosening.. The soft tissue structures are unremarkable. RAD/Knee 3 Views IMPRESSION: Normal x-ray examination of the knee after total knee arthroplasty. Electronically Signed: Luiz Vargas MD at 11:54 EDT ,
--- NOTE | 2024-02-04 10:05 | RAD_ITS ---
STUDY: X-RAY - LEFT KNEE REASON FOR EXAM: Male, 53 years old. pain TECHNIQUE: 3 view(s) of the knee. COMPARISON: 08/23/2023 FINDINGS: Normal visualized distal femur. Normal visualized proximal tibia and fibula. Normal proximal tibiofibular articulation. Status post total knee arthroplasty. The prosthesis appears located. No ostial lysis to suggest loosening.. The soft tissue structures are unremarkable. RAD/Knee 3 Views IMPRESSION: Normal x-ray examination of the knee after total knee arthroplasty. Electronically Signed: Luiz Vargas MD at 11:55 EDT ,
== END | disposition home or self-care (01) ==
LOC: MTRAD 10:05
PROVIDERS: PCP Family Medicine; Referring Provider Orthopaedic Surgery; Visit Provider Orthopaedic Surgery
DX: M25.561 Pain in right knee (principal); M25.562 Pain in left knee
CPT/HCPCS: 73562

== ENCOUNTER → 2024-03-05 | Outpatient (CLI) | payer OTHER, SELFPAY ==
[2024-03-05 15:33] LABS: Erythrocyte Sedimentation Rate < 1 mm/hr (0-20)
[2024-03-05 15:38] LABS: CRP < 2.90 mg/L (0.0-3.0); Rheumatoid Factor < 10.0 IU/mL (<15); Uric Acid 5.1 mg/dL (3.5-7.2)
[2024-03-08 14:09] LABS: CCP IgG Antibodies 6 units (0-19)
== END | disposition home or self-care (01) ==
LOC: BFHLAB 13:21
PROVIDERS: PCP Family Medicine; Referring Provider Family Medicine; Visit Provider Family Medicine
DX: M25.50 Pain in unspecified joint (principal)
CPT/HCPCS: 36415; 84550; 85652; 86140; 86200; 86431

== ENCOUNTER → 2024-03-26 | Outpatient (CLI) | payer OTHER, SELFPAY ==
--- NOTE | 2024-03-26 15:45 | MRI_ITS ---
EXAM: MR LUMBAR SPINE WITHOUT INTRAVENOUS CONTRAST CLINICAL INDICATION: pain TECHNIQUE: Multiplanar and multisequence MR images of the lumbar spine without intravenous contrast. COMPARISON: Lumbar spine radiographs, 01/30/2024 and MRI lumbar spine, 10/21/2022. FINDINGS: VERTEBRAE: Subcentimeter hemangioma within the L5 vertebral body and subcentimeter hemangioma within the T12 vertebral body. No suspicious marrow space signal abnormalities are otherwise identified. Multilevel endplate osteophytosis and facet arthrosis. No fracture. Bilateral L5 spondylolysis with grade 1 anterolisthesis of L5 upon S1 measuring approximately 9 mm. SPINAL CORD: No significant abnormality. Normal position and signal intensity of the conus medullaris. SOFT TISSUES: No significant abnormality. DISCS/SPINAL CANAL/NEURAL FORAMINA: T12-L1: Moderate bilateral facet arthrosis. No disc herniation, spinal canal stenosis, or neural foraminal narrowing. L1-L2: Mild disc bulge and moderate bilateral facet arthrosis. Mild spinal canal and bilateral neural foraminal narrowing. L2-L3: Mild disc bulge and moderate bilateral facet arthrosis. No significant spinal canal stenosis. Mild bilateral neural foraminal narrowing. L3-L4: Disc bulge and superimposed central disc herniation. Moderate to severe bilateral facet arthrosis. Mild to moderate bilateral neural foraminal narrowing and mild spinal canal stenosis. L4-L5: Disc bulge and superimposed central disc herniation. Moderate bilateral facet arthrosis. No significant spinal canal stenosis. Mild right greater than left neural foraminal narrowing. L5-S1: Anterolisthesis as described. Disc uncovering/pseudobulge with superimposed central disc herniation. Severe bilateral facet arthrosis. Mild spinal canal stenosis and moderate to severe bilateral neural foraminal narrowing. Bilateral L5 nerve root impingement. MRI/Spine Lumbar (Routine) IMPRESSION: 1. Bilateral L5 spondylolysis with grade 1 anterolisthesis of L5 upon S1 measuring approximately 9 mm. This appears similar to the prior examination. 2. Degenerative changes throughout the lumbar spine detailed above, similar to the prior examination. 3. Bilateral L5 nerve root impingement. No additional nerve root impingement or spinal cord signal abnormality. Electronically Signed: Irvin Gallego DO at 23:51 EST ,
== END | disposition home or self-care (01) ==
LOC: MRI 15:28
PROVIDERS: PCP Family Medicine; Referring Provider Orthopaedic Surgery Orthopaedic Surgery of the Spine; Visit Provider Orthopaedic Surgery Orthopaedic Surgery of the Spine
DX: M51.360 Other intervertebral disc degeneration, lumbar region with discogenic back pain only (principal); M43.16 Spondylolisthesis, lumbar region
CPT/HCPCS: 72148

== ENCOUNTER → 2024-03-31 | Outpatient (CLI) | payer OTHER, SELFPAY ==
--- NOTE | 2024-03-31 10:45 | BD_ITS ---
STUDY: DUAL ENERGY X-RAY ABSORPTIOMETRY / DXA REASON FOR EXAM: Male, 53 years old. Z79.52 TECHNIQUE: Bone Mineral Density (BMD) measurements of lumbar spine and bilateral hips were obtained. COMPARISON: None. FINDINGS: Lumbar Spine (L1-L4): g/cm2 (1.095) / T-score (0.0) / Z-score (0.5) Findings are suggestive of normal bone density with a low fracture risk. Left Femur Total: g/cm2 (1.042) / T-score (0.1) / Z-score (0.5) Left Femoral Neck: g/cm2 (0.712) / T-score (-1.6) / Z-score (-0.7) Right Femur Total: g/cm2 (1.038) / T-score (0.0) / Z-score (0.4) Right Femoral Neck: g/cm2 (0.689) / T-score (-1.8) / Z-score (-0.9) BD/Dexa Bone Density Study IMPRESSION: The patient is considered osteopenic as outlined below according to World [employer]io Organization (WHO) criteria with a moderate fracture risk. Reference Information: The T-score is the number of standard deviations above or below the standard which is normal for young adults at their peak bone mineral density. The World Health Organization (WHO) interprets the T-scores as follows: Above -1 Normal bone density Between -1 and -2.5 Osteopenia Equal to / or below -2.5 Osteoporosis As a practical clinical guideline, osteopenia may be graded as follows: Mild -1 through -1.5 Moderate -1.6 through -2.0 Severe -2.1 through -2.4 The Z-score is the number of standard deviations above or below age-matched controls. A Z-score of less than -1.5 would be considered abnormal. References: 1. NIH Osteoporosis and Related Bone Diseases www osteo.org 2. International Society for Clinical Densitometry www iscd.org 3. National Osteoporosis Foundation www nof.org Electronically Signed: Thor Garcia MD at 13:47 EST ,
== END | disposition home or self-care (01) ==
LOC: OPBD 10:43
PROVIDERS: PCP Family Medicine; Referring Provider Family Medicine; Visit Provider Family Medicine
DX: M85.80 Other specified disorders of bone density and structure, unspecified site (principal); Z79.52 Long term (current) use of systemic steroids
CPT/HCPCS: 77080

== ENCOUNTER 2024-04-07 05:29 | Day surgery (SDC) | payer OTHER, SELFPAY ==
--- NOTE | 2024-03-29 09:29 | EKG12_ITS ---
Test Reason : PREOP Blood Pressure : */* mmHG Vent. Rate : 55 BPM Atrial Rate : 55 BPM P-R Int : 164 ms QRS Dur : 84 ms QT Int : 434 ms P-R-T Axes : 23 -3 10 degrees QTcB Int : 415 ms Sinus bradycardia with sinus arrhythmia Otherwise normal ECG Confirmed by Rickey Winkler ([id number]), editor department KARLA LOU ([id number]) on 03/30/2024 5:58:00 AM Referred By: Ernesto Ramirez Confirmed By: Rickey Winkler
[2024-03-29 09:51] LABS: Mean Corp Hgb Conc 33.3 g/dL (32-36); Mean Corpuscular Hgb 30.2 pg (27.0-32.0); Mean Corpuscular Volume 90.5 fL (80-94); Mean Platelet Vol. 10.8 fl (6.2-12.0); Platelet Count 184 K/mm3 (150-450); RBC Distribution Width CV 13.3 % (11.6-14.6); RBC Distribution Width SD 43.4 fl (35.1-43.9); Red Blood Count 4.97 M/mm3 (4.6-6.2)
[2024-04-07] VITALS (11 sets, daily range): BP systolic 126–156; BP diastolic 75–104; PULSE 50–65; RESP 16–20; TEMP 36.2–36.9; O2SAT 86–100; BMI 38.4
[2024-04-07] MEDS: 0.9% Normal Saline (1000mL) 1,000 ML 15 ML IV (06:26)
--- NOTE | 2024-04-07 06:56 | PRE.ANES_ITS ---
ASA Classification* ASA Classification ASA Classification: 3 Assessment & Plan Anesthesia* Anesthesia Assessment Anesthesia Assessment: Discussed sedation and/or anesthesia options, risks, benefits, and alternatives with patient/parents/legal guardian/POA. Questions invited. The patient/parents/legal guardian/POA seems to understand and agrees to proceed with anesthesia plan. Reviewed the physical assessment, medical history, allergy history and patient home medications list prior to surgery/procedure/anesthetic and documented any changes. Performed airway and anesthesia risk assessments. Anesthesia Type Anesthesia Type: General and Block Anesthesia Focused Assessment* Temperature: 98.5 F Pulse Rate: 50 Blood Pressure: 133/87 Respiratory Rate: 20 Pulse Ox: 98 Airway Assessment Mouth opens: >3 cm Mallampati Score: II Focused Labs Anesthesia Preop lab: CBC WBC 6.0 K/mm3 (4.4-11.0) 03/29/24 09:40 RBC 4.97 M/mm3 (4.6-6.2) 03/29/24 09:40 Hgb 15.0 g/dL (13.0-16.5) 03/29/24 09:40 Hct 45.0 % (40-54) 03/29/24 09:40 Plt Count 184 K/mm3 (150-450) 03/29/24 09:40 CHEMISTRY Potassium 4.1 mmol/L (3.5-5.1) 01/29/23 06:50 Sodium 138 mmol/L (136-145) 01/29/23 06:50 Magnesium 2.2 mg/dL (1.6-2.6) 01/15/23 11:01 BUN 19 mg/dL (7-18) H 01/29/23 06:50 Creatinine 1.12 mg/dL (0.70-1.30) 01/29/23 06:50 Glucose 151 mg/dL (74-106) H 01/29/23 06:50 POC Glucose 81 mg/dL (74-106) 01/28/23 06:16 TSH 1.25 uIU/mL (0.358-3.74) 02/09/22 08:16 COAG PT 12.7 SECONDS (11.7-14.9) 01/15/23 11:02 Pre-Assessment Diagnosis/Proposed Procedure Planned Operative Procedure(s): LEFT SHOULDER ARTHROSCOPY SUBCROMICAL DECOMPRESSION DEBRIDEMENT Anesthesia History Anesthesia History - cement based materials pump tender: Anesthesia History - cement based materials pump tender Hx Hospitalization No 03/29/24 08:30 Any Problems With Anesthesia Yes: SLOW TO AWAKEN 03/29/24 08:30 Cholinesterase deficiency No 03/29/24 08:30 You/Your Family Experience No 03/29/24 08:30 fever (hyperthermia) with Relationship Recent Exposure to Contagious No 04/07/24 06:01 Disease Does patient have nerve No 03/29/24 08:30 stimulator Patient instructed to have device shut off --Does patient have Pacemaker No 04/07/24 06:01 or ICD? When Was Last Pacemaker Check QUESTION #4 FULL TEXT: You/Your Family Experience fever (hyperthermia) with Anesthesia Last Oral Intake Last Oral intake: Last Oral Intake NPO since 04:30 04/07/24 06:01 Meds taken in AM with sips of Yes 04/07/24 06:01 water? Meds patient instructed to take am of surgery PONV PONV - cement based materials pump tender: PONV - cement based materials pump tender Female No 03/29/24 08:30 HX of Motion Sickness No 03/29/24 08:30 HX of N/V After Surgery No 03/29/24 08:30 Non-Smoker No 03/29/24 08:30 Duration of Surgery greater Yes 03/29/24 08:30 than 60 minutes Number of Risk Factors 1 03/29/24 08:30 PONV Score Low Risk 03/29/24 08:30 Height & Weight Height & Weight: Anesthesia: Height & Weight Height 5 ft 9 in 04/07/24 06:01 Weight: 118 kg 04/07/24 06:01 Body Mass Index (BMI) 38.4 04/07/24 06:01 Respiratory Assessment Respiratory Assessment - cement based materials pump tender: Respiratory Tract Infection Hx - cement based materials pump tender Hx Respiratory Tract Infection No 03/29/24 08:30 STOP Sleep Apnea STOP Sleep Apnea - cement based materials pump tender: STOP Sleep Apnea - cement based materials pump tender Hx Hypertension Yes: CONTROLLED WITH MEDS 03/29/24 08:30 Hx Sleep Apnea Yes 03/29/24 08:30 CPAP Yes 03/29/24 08:30 BIPAP No 03/29/24 08:30 Do you snore loudly (louder than talking or can be heard Do you often feel tired/ fatigued/ sleepy during daytime? Has anyone observed you stop breathing during sleep? STOP Results Positive 03/29/24 08:30 QUESTION #5 FULL TEXT : Do you snore loudly (louder than talking or can be heard through closed doors)? Tobacco Use History Tobacco Use History - cement based materials pump tender: Tobacco Use History - cement based materials pump tender Tobacco Use Smoking Status Current some day smoker 03/29/24 08:30 Hx Tobacco Use Yes 03/29/24 08:30 Years Smoking Packs Smoked per Day Smoking Cessation Date was within the last 15 years Hx Smoking Cessation Date Hx Smoking Cessation No 03/29/24 08:30 Counseling Hematologic Medial History Hematologic Hx - cement based materials pump tender: Hematologic Medical Hx - jailor Hx of Blood Transfusion No 03/29/24 08:30 Hx of Transfusion in last 3 No 03/29/24 08:30 Months Date of Last Transfusion (if within last 3 months) Ever experience any problems No 03/29/24 08:30 with transfusion(s)? Specify any problems Hx of Preganancy in last 3 N/A 03/29/24 08:30 Months Nurse Filling Out Transfusion DSCHRIBER 03/29/24 08:30 & Questions: Date: 03/29/24 03/29/24 08:30 Time: 08:32 03/29/24 08:30 Patient unable to answer at this time (ie. confused, unrespo /Reproduction History /Reproductive History - cement based materials pump tender: /Reproductive Hx- cement based materials pump tender Hx Now Gestational Age (in weeks): EDC: Hx Hx Para Hx Section SAB No 03/29/24 08:30 Active Medications Active Medications: Current Medications Generic Name Dose Route Start Last Admin Trade Name Freq PRN Reason Stop Dose Admin Cefazolin Sodium 2 gm/ N/A 20 mls @ 400 mls/hr 04/07/24 07:30 IV 04/07/24 07:32 PREOP ONE Sodium Chloride 1,000 mls @ 15 mls/hr 04/07/24 05:50 04/07/24 06:26 IV 04/12/24 19:09 15 mls/hr .Q48H YAMILE Administration Protocol PFS Medical History History of edema Tendinosis of left shoulder Strain of right hand Smoker Acute bronchitis, unspecified Contact with and (suspected) exposure to other viral communicable diseases 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 Traumatic open wound of right lower leg Chronic wound of extremity Degenerative disc disease Varicose veins with inflammation History of hemorrhoids Hypertension GERD (gastroesophageal reflux disease) History of deep vein thrombosis History of diabetes mellitus CPAP (continuous positive airway pressure) dependence Obstructive sleep apnea Arthritis Obesity (BMI 35.0-39.9 without comorbidity) Wears glasses Alcohol use History of steroid therapy DVT (deep venous thrombosis) Back pain Gastric reflux CPAP (continuous positive airway pressure) dependence Leg cramps History of echocardiogram History of stress test Hypertension Varicose veins of right lower extremity Lab test negative for COVID-19 virus Disorder of uvula Diabetes Hemorrhoids Arthritis Home Medications ?Medication ?Instructions ?Recorded ?Last Taken ?Type calcium 315 mg (as 2 tab PO QHS SUPPLEMENT 04/25/20 04/06/24 History citrate)-vitamin D3 5 mcg (200 unit) tablet (Calcium Citrate + D) multivitamin 2 cap PO DAILY SUPPLEMENT 04/25/20 04/06/24 History amlodipine 5 mg tablet 5 mg PO DAILY BP 08/04/20 04/07/24 History mecobalamin (vitamin B12) 1,000 1,500 mcg sublingual DAILY 08/04/20 04/06/24 History mcg disintegrating SUPPLEMENT tablet,sublingual metoprolol succinate 25 mg 25 mg PO DAILY BP 08/04/20 04/07/24 History tablet,extended release 24 hr pantoprazole 20 mg tablet,delayed 40 mg PO DAILY GERD 01/29/21 04/07/24 History release (Protonix) celecoxib 200 mg capsule (Celebrex) 200 mg PO BID PAIN 05/23/21 04/06/24 History cholecalciferol (vitamin D3) 10 10 mcg PO DAILY SUPPLEMENT 01/08/22 04/06/24 History mcg (400 unit) capsule (Vitamin D3) magnesium 1 tab PO QHS SUPPLEMENT 01/08/22 04/06/24 History gabapentin 100 mg capsule 100 mg PO BID PAIN 02/11/22 04/07/24 History aspirin 81 mg tablet,delayed 81 mg PO DAILY SUPPLEMENT 10/02/22 04/06/24 History release (Adult Aspirin Regimen) fiber 2 cap PO QHS 02/03/24 04/06/24 History trazodone 50 mg tablet 100 mg PO QHS to sleep through the 10/08/24 Unknown History night Allergy/AdvReac Type Severity Reaction Status Date / Time olmesartan medoxomil (From Allergy Itching Verified 04/07/24 05:59 Rona) Family History Other Breast cancer Surgical History History of bilateral knee arthroplasty History of root canal procedure Hx of knee surgery Hx of arthroplasty Hx of gastric bypass Hx of knee surgery Hx of colonoscopy History of tonsillectomy History of gastric restrictive surgery History of shoulder surgery History of arthroscopic knee surgery History of umbilical hernia repair History of surgical removal of ganglion cyst hx of gastric sleeve H/O shoulder surgery H/O hernia repair H/O knee surgery H/O foot surgery Deviated septum History of tonsillectomy Social History Smoking Status: Current some day smoker tobacco type: cigars alcohol intake: current alcohol intake frequency: holidays/special occasions only Review of Systems (Anesthesia) ROS Narrative System reviewed and no additional complaints, except as documented.
--- NOTE | 2024-04-07 07:04 | HP.PCM_ITS ---
HPI - General HPI Narrative MIRIAM BURTON, is a 53 M who presents for left shoulder arthroscopy, subacromial decompression debridement. left shoulder marked. no changes to h and p. rab, post op instructions and narcotic counselling. ok to proceed. MR#: [id number] Acct: [id number] Name: MIRIAM BURTON Rep #: [id number] : 1970 Provider: Dr. Ernesto Ramirez MD Age/Sex: 53/M Location: [facility] [email or web address] Status: Signed Intake Vital Signs 08/22/2412:24 Height 5 ft 9 in Intake Visit Reasons: LEFT SHOULDER Chief Complaint: Continued Left Shoulder Pain Accompanied by: Self Is patient in pain?: Yes (when moving) Pain scale (1-10): 8 Allergies olmesartan medoxomil (From Benicar) Allergy (Verified 12/30/23 13:59) Itching Medications ?Medication ?Instructions ?Recorded ?Confirmed ?Type calcium citrate 315 mg-vitamin D3 2 tab PO QHS SUPPLEMENT 04/25/20 12/30/23 History 5 mcg (200 unit) tablet (Calcium Citrate + D) multivitamin 2 cap PO DAILY SUPPLEMENT 04/25/20 12/30/23 History amlodipine 5 mg tablet 5 mg PO DAILY BP 08/04/20 12/30/23 History mecobalamin (vitamin B12) 1,000 1,500 mcg sublingual DAILY 08/04/20 12/30/23 History mcg disintegrating SUPPLEMENT tablet,sublingual metoprolol succinate 25 mg 25 mg PO DAILY BP 08/04/20 12/30/23 History tablet,extended release 24 hr pantoprazole 20 mg tablet,delayed 40 mg PO DAILY GERD 01/29/21 12/30/23 History release (Protonix) celecoxib 200 mg capsule (Celebrex) 200 mg PO BID PAIN 05/23/21 12/30/23 History cholecalciferol (vitamin D3) 10 10 mcg PO DAILY SUPPLEMENT 01/08/22 12/30/23 History mcg (400 unit) capsule (Vitamin D3) magnesium 1 tab PO QHS SUPPLEMENT 01/08/22 12/30/23 History gabapentin 100 mg capsule 100 mg PO BID PAIN 02/11/22 12/30/23 History aspirin 81 mg tablet,delayed 81 mg PO DAILY SUPPLEMENT 10/02/22 12/30/23 History release (Adult Aspirin Regimen) acetaminophen 500 mg tablet 1,000 mg (2 x 500 mg) PO Q6H PRN 01/29/23 12/30/23 Rx #100 tabs PFSH Medical History Tendinosis of left shoulder Strain of right hand Smoker History of pain when walking Acute bronchitis, unspecified Contact with and (suspected) exposure to other viral communicable diseases 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 Traumatic open wound of right lower leg Chronic wound of extremity Degenerative disc disease Varicose veins with inflammation History of hemorrhoids Hypertension GERD (gastroesophageal reflux disease) History of deep vein thrombosis History of diabetes mellitus CPAP (continuous positive airway pressure) dependence Obstructive sleep apnea Arthritis Obesity (BMI 35.0-39.9 without comorbidity) Wears glasses Alcohol use History of steroid therapy DVT (deep venous thrombosis) Back pain Gastric reflux CPAP (continuous positive airway pressure) dependence Leg cramps History of echocardiogram History of stress test Hypertension Varicose veins of right lower extremity Lab test negative for COVID-19 virus Disorder of uvula Diabetes Hemorrhoids Arthritis Surgical History Hx of arthroplasty Hx of gastric bypass Hx of knee surgery Hx of colonoscopy History of tonsillectomy History of gastric restrictive surgery History of shoulder surgery History of arthroscopic knee surgery History of umbilical hernia repair History of surgical removal of ganglion cyst hx of gastric sleeve H/O shoulder surgery H/O hernia repair H/O knee surgery H/O foot surgery Deviated septum History of tonsillectomy Family History Other Breast cancer Social History Smoking Status: Current some day smoker tobacco type: cigars alcohol intake: current alcohol intake frequency: holidays/special occasions only HPI LEFT SHOULDER Details: This documentation accurately reflects the service provided and the decisions made by me, Dr. Ernesto Ramirez MD 12/30/23 [id number]. Part of today?s visit was documented by [ ], acting as scribe. MIRIAM BURTON is a 53 year old M here today for left shoulder pain. 2-3 months, no injuyr, lateral side and everywhere worse with motion, somewhat going down the arm. had prior scope surgery on the right side that was effective. RHD. 0-1 at rest, could be sharp stabbing 30 seconds. 8/10. have to stop and wait for it to go away. work - unemployed. on disability for the knees and back. no hobbies. seeing dr lerma next month. did PT but made it worse, tried it 3 months ago. did 1 month total. [place] celebrex tramadol. had a cortisone injection 6 weeks ago, it may have helped but getting worse. Supplemental Info [facility] [address] [place] [address] Upper Ext Joint Only(Routine) MR#: [id number] Acct: [id number] Name: MIRIAM BURTON Rep #: [id number] : 1970 M 53 From: Geremias Jolly MD PCP: Dr. Renzo Beatty, Status: REG CLI Study: Upper Ext Joint Only(Routine) Date of Exam: 12/20/23 Exam# [id number] Ordering Dr: Jason Fritz DO STUDY: MRI LEFT SHOULDER REASON FOR EXAM: Male, 53 years old. L SHOULDER PAIN INTO BACK PF NECK X 3 MONTHS TECHNIQUE: Standardized fat and water weighted pulse sequences were obtained in all 3 orthogonal planes. COMPARISON: Left shoulder radiographs dated 07/11/2023. FINDINGS: There is mild supraspinatus, infraspinatus, and subscapularis tendinosis without a full-thickness tear. Normal teres minor tendon. Normal supraspinatus muscle. Normal infraspinatus muscle. Normal subscapularis muscle. Normal teres minor muscle. There is a small glenohumeral joint effusion Normal humeral head and visualized proximal humerus. Normal biceps labral complex. Normal intracapsular long biceps tendon. Normal labrum. Normal capsulo-ligamentous complex. Normal rotator interval. There is hypertrophic acromioclavicular arthrosis, with inferior osteophyte formation, with mild effacement of the supraspinatus myotendinous junction (coronal T2 series 8 images 11-13). There is a Type II morphology (curved), with a neutral orientation. There is no subacromial-subdeltoid bursal fluid. Normal visualized coracohumeral and coracoacromial ligaments. Normal quadrilateral space. Normal axillary space. Normal deltoid muscle. Normal trapezius muscle. MRI/Upper Ext Joint Only(Routine) IMPRESSION: Mild supraspinatus, infraspinatus, and subscapularis tendinosis without a full-thickness rotator cuff tear. Hypertrophic acromioclavicular arthrosis, with inferior osteophyte formation, with mild effacement of the supraspinatus myotendinous junction. Small glenohumeral joint effusion. Electronically Signed: Geremias Jolly MD at 9:32 EDT Reading Location ID and State: [address] [place] [address] , Service support , [facility] [address] [place] [id number] Shoulder min 2 Views MR#: [id number] Acct: [id number] Name: MIRIAM BURTON Rep #: [id number] : 1970 M 53 From: Luigi Shook MD PCP: Dr. Renzo Beatty DO Status: REG CLI Study: Shoulder min 2 Views Date of Exam: 07/11/23 Exam# [id number] Ordering Dr: Jason Fritz DO STUDY: X-RAY - LEFT SHOULDER REASON FOR EXAM: Male, 53 years old. pain TECHNIQUE: 4 view(s) of the shoulder. COMPARISON: None. FINDINGS: Normal glenohumeral articulation. Mild narrowing of the acromioclavicular joint. Normal acromion. Normal humeral head and visualized proximal humerus. The soft tissue structures are unremarkable. Normal visualized pulmonary apex. RAD/Shoulder min 2 Views IMPRESSION: No fracture or suspicious osseous lesion Mild narrowing of the acromioclavicular joint. Electronically Signed: Angelito Shook MD at 15:35 EDT , I independently reviewed the imaging. Concur with radiologist report. Coding Level of Care Code Off vis,est,level 3 Diagnoses Chronic left shoulder pain M25.512; G89.29 Chronicity: chronic Tendinosis of left shoulder M67.814 Assessment and Plan Assessment and Plan (1) Left shoulder pain: Status: Acute Qualifiers: Chronicity: chronic Qualified Code(s): M25.512 - Pain in left shoulder; G89.29 - Other chronic pain Plan: 53-year-old man left shoulder pain impingement and tendinosis as well as AC joint arthrosis. I explained the diagnosis prognosis different treatment options available to the patient. He has already tried injections physical therapy and anti-inflammatory medications. In terms of surgery would consider left shoulder arthroscopy, subacromial decompression debridement. No pain at the AC joint with a negative cross body adduction test so I would not recommend a distal clavicle excision. Did explain to the patient although I will not put this on the consent form that if I see a rotator cuff tear or tear of the biceps that I would do a tenodesis or fix the tear but there is nothing apparent on the MRI. He had had good results in the past with shoulder arthroscopy and debridement I think that this is reasonable he had some good relief with the injection but this was only short lasting. I explained the diagnosis and recovery associate with surgery 2 weeks in a sling 6 to 8 weeks before going back to normal activities he understands wished to proceed with surgery. No further questions or concerns. Pros and cons risks and benefits were discussed with the patient including but not limited to infection, pain, stiffness, bleeding, damage to surrounding structures, neurovascular injury, recurrence or retear, failure or wear of hardware or fixation, instability, fracture, deep vein thrombosis and pulmonary embolism, anesthetic risks, , patient dissatisfaction, need for further surgery and other risks. Patient understood and wished to proceed with surgery, and signed the informed consent documentation. (2) Tendinosis of left shoulder: Status: Acute Plan Details Goals & Barriers: Target Due Date 01/08/22 Ortho Exam General General: Yes no acute distress Neurologic: Yes alert and Yes oriented x3 Psychologic: Yes reasonable and appropriate Left Shoulder Skin/Wound: Yes CDI, No ecchymosis, No erythema and No swelling Testing: Yes Hawkin's, Yes Neer's, Yes Speed's, No TTP Biceps, No TTP AC Joint, Yes AROM-Forward Elevation 0-180, Yes AROM-External Rotation at side 0-60, No Sulcus Sign, Yes empty can, No [place], No cross arm, No lift off, No scapular winging and Yes belly press normal SHOULDER: normal motor and sens to axillary N, MRU and AIN/PIN. Hand warm well perfused normal radial pulse Forward elevation and external rotation strength both 5/5. 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 Traumatic open wound of right lower leg Chronic wound of extremity Degenerative disc disease Varicose veins with inflammation History of hemorrhoids Hypertension GERD (gastroesophageal reflux disease) History of deep vein thrombosis History of diabetes mellitus CPAP (continuous positive airway pressure) dependence Obstructive sleep apnea Arthritis Obesity (BMI 35.0-39.9 without comorbidity) Wears glasses Alcohol use History of steroid therapy DVT (deep venous thrombosis) Back pain Gastric reflux CPAP (continuous positive airway pressure) dependence Leg cramps History of echocardiogram History of stress test Hypertension Varicose veins of right lower extremity Lab test negative for COVID-19 virus Disorder of uvula Diabetes Hemorrhoids Arthritis Home Medications ?Medication ?Instructions ?Recorded ?Last Taken ?Type calcium 315 mg (as 2 tab PO QHS SUPPLEMENT 04/25/20 04/06/24 History citrate)-vitamin D3 5 mcg (200 unit) tablet (Calcium Citrate + D) multivitamin 2 cap PO DAILY SUPPLEMENT 04/25/20 04/06/24 History amlodipine 5 mg tablet 5 mg PO DAILY BP 08/04/20 04/07/24 History mecobalamin (vitamin B12) 1,000 1,500 mcg sublingual DAILY 08/04/20 04/06/24 History mcg disintegrating SUPPLEMENT tablet,sublingual metoprolol succinate 25 mg 25 mg PO DAILY BP 08/04/20 04/07/24 History tablet,extended release 24 hr pantoprazole 20 mg tablet,delayed 40 mg PO DAILY GERD 01/29/21 04/07/24 History release (Protonix) celecoxib 200 mg capsule (Celebrex) 200 mg PO BID PAIN 05/23/21 04/06/24 History cholecalciferol (vitamin D3) 10 10 mcg PO DAILY SUPPLEMENT 01/08/22 04/06/24 History mcg (400 unit) capsule (Vitamin D3) magnesium 1 tab PO QHS SUPPLEMENT 01/08/22 04/06/24 History gabapentin 100 mg capsule 100 mg PO BID PAIN 02/11/22 04/07/24 History aspirin 81 mg tablet,delayed 81 mg PO DAILY SUPPLEMENT 10/02/22 04/06/24 History release (Adult Aspirin Regimen) fiber 2 cap PO QHS 02/03/24 04/06/24 History trazodone 50 mg tablet 100 mg PO QHS to sleep through the 02/03/24 Unknown History night Allergy/AdvReac Type Severity Reaction Status Date / Time olmesartan medoxomil (From Allergy Itching Verified 04/07/24 05:59 Rona) Family History Other Breast cancer Surgical History History of bilateral knee arthroplasty History of root canal procedure Hx of knee surgery Hx of arthroplasty Hx of gastric bypass Hx of knee surgery Hx of colonoscopy History of tonsillectomy History of gastric restrictive surgery History of shoulder surgery History of arthroscopic knee surgery History of umbilical hernia repair History of surgical removal of ganglion cyst hx of gastric sleeve H/O shoulder surgery H/O hernia repair H/O knee surgery H/O foot surgery Deviated septum History of tonsillectomy Social History Smoking Status: Current some day smoker tobacco type: cigars alcohol intake: current alcohol intake frequency: holidays/special occasions only Vital Signs Vital Signs Vital Signs: 04/07/24 06:01 04/07/24 06:01 04/07/24 06:57 Temperature 98.5 F 98.5 F Temperature Source Temporal Pulse Rate 50 L 50 L Respiratory Rate 20 H 20 H Respiratory Pattern Normal Blood Pressure 133/87 H 133/87 H Blood Pressure Mean 102 Blood Pressure Source Monitor Blood Pressure Position Semi-Fowlers Blood Pressure Location Right Arm Pulse Ox 98 98 Oxygen Delivery Method Room Air Weight Weight: 260 lb 2.327 oz Body Mass Index (BMI) 38.4 Results Lab / Micro Data 03/29/24 09:40
[2024-04-07] MEDS: Cefazolin 2 GM in Syringe IV (07:27)
[2024-04-07] MEDS: Epinephrine (1 mg/ml) 1 MG/ML VIAL (07:50)
--- NOTE | 2024-04-07 08:16 | EX.PCM.DISCH ---
Discharge Instructions Diet Discharge Diet: No restrictions Activity Ice area for (Minutes): 10 Lifting Restrictions: no lifting over 1 pound Additional Activity Instructions:: pendulums, sling for 1-2 weeks as needed Dressing / Incision Call your doctor if your incision/area has: Continuous Slow Oozing, Sudden Increased Bleeding, Increased Pain/ Swelling, Increased Redness, Foul Smelling Discharge and Swelling at the incision site Call your doctor if you observe: Fever of 101 or Higher, Coldness, Increased Pain and Numbness or Tingling Remove Dressing in: leave in place till F/U Cleanse incision/area with: Do not get Incision Wet Follow Up Care Please Follow Up With: Ernesto Ramirez MD When: 2 days Test Results: Test results from this visit will be discussed in further detail at your follow-up appointment, if applicable. Discharge Plan Admission Attending Provider: Ernesto Ramirez Primary Care Provider: Renzo Beatty Consulting Providers: Krishan Evans Instructions Print Language: Sinhala Discharge Orders/Prescriptions Prescriptions: New oxycodone-acetaminophen [Endocet] 5-325 mg tablet 1 tab PO Q4H MDD 6 PRN (Reason: pain) 5 Days Qty: 20 0RF No Action calcium citrate-vitamin D3 [Calcium Citrate + D] 315 mg-5 mcg (200 unit) tablet 2 tab PO QHS multivitamin Capsule 2 cap PO DAILY mecobalamin (vitamin B12) 1,000 mcg tablet,disintegrating 1,500 mcg SL DAILY Rx Instructions: place tablet under tongue and allow to dissolve for at least30 secs before swallowing amlodipine 5 mg tablet 5 mg PO DAILY metoprolol succinate 25 mg tablet extended release 24 hr 25 mg PO DAILY pantoprazole [Protonix] 20 mg tablet,delayed release (DR/EC) 40 mg PO DAILY gabapentin 100 mg capsule 100 mg PO BID aspirin [Adult Aspirin Regimen] 81 mg tablet,delayed release (DR/EC) 81 mg PO DAILY celecoxib [Celebrex] 200 mg Capsule 200 mg PO BID cholecalciferol (vitamin D3) [Vitamin D3] 10 mcg (400 unit) Capsule 10 mcg PO DAILY magnesium Tablet 1 tab PO QHS trazodone 50 mg tablet 100 mg PO QHS fiber Capsule 2 cap PO QHS Other Ambulatory Orders: 12 Lead EKG (Routine) Timeframe: 20240330 Facility: [facility] - Location: Cardiovascular Services Ordered By: Dr. Krishan Evans Referrals / Follow Up: Renzo Beatty DO [Primary Care Provider] - Ernesto Ramirez MD [Med Staff - Active Staff] - Disposition Disposition (needs filled in before D/C Order can be placed): Home, Self Care
--- NOTE | 2024-04-07 08:20 | OP.PCM_ITS ---
Problems Associated Problem List Diagnoses (1) Tendinitis of both rotator cuffs: (2) Left shoulder pain: Procedures Musculoskeletal 20xxx-29xxx: Other Procedure See Report Operative Report (Standard) Operative Information Date of Procedure: 04/07/24 Pre-Operative Diagnosis: L shoulder impingement syndrome, bursitis Post-Operative Diagnosis: same Surgery/Procedure Performed: L shoulder arthroscopy, subacromial decompression, debridement. client sales and service officer: Yes Performance Consultant: brooks fox Tasks completed by lead recreation assistant: Retracting Additional assistant professor of biochemistry?: No Type of Anesthesia: Block,Regional and General RN Documented Start/Stop Times: Operation Date: 04/07/24 07:30 Case Time Into Pre-Op 04/07/24 05:45 Anesthesia Start 04/07/24 07:27 Into Room 04/07/24 07:27 Out of Pre-Op 04/07/24 07:27 Procedure Start 04/07/24 07:50 Procedure End 04/07/24 08:14 Anesthesia End 04/07/24 08:26 Out of Room 04/07/24 08:26 Procedure Start Time: 07:50 Procedure Stop Time: 08:14 Select all DRAINS/GRAFTS/IMPLANTS that apply: None Estimated Blood Loss: 20 Specimen collected: No Description of surgery: Patient brought to the operating room theater. Placed supine on the table. General anesthesia induced. Patient had a block preoperatively. 3 g IV Ancef administered prior to the start of the case. Patient transferred to the left side up lateral decubitus beanbag positioner. Opted not to place axillary roll as there was good padding they are ready. All bony prominences padded. SCDs on the leg. Upper extremity prepped and draped in the usual sterile fashion allowing over 3 minutes drying time prior to draping. 10 pounds of inline traction with the arm in 40 degrees duction was used. Preoperative timeout performed to confirm the site patient and the surgery. Began by inserting the arthroscope into the intra-articular portion of the shoulder through a standard posterior arthroscopy portal. Established an anterior portal through the rotator interval using inside out spinal needle localization. Did a full diagnostic arthroscopy. Cartilage on the glenoid and humeral head appeared normal. Undersurface of the supraspinatus tendon and infraspinatus tendon appeared normal. Normal axillary recess. Normal bare are a. Biceps attachment appeared normal as did the labrum. On the undersurface of the long head of the biceps there was some minor fraying for about 10% cross- sectional area I gently debrided this as well as some minor upper border fraying of the subscapularis interstitial fraying but attachment site footprint was normal. Inserted the arthroscope into the subacromial space. Took arthroscopy pictures throughout. Established lateral portal. There is moderate amount of bursitis. I removed completely of the bursa. Did a partial takedown of the CA ligament. I did decompression down to flat margins using a high-speed kathleen instrument by about 3 mm of the acromion under surface. I used the probe on the rest of the rotator cuff tendon to confirm no tears. Case terminated arthroscope withdrawn. Wounds cleaned with wet dry dressing followed by closed with 1 portal site with 3-0 Monocryl and Steri-Strips. This was followed by Adaptic 4 x 4 gauze ABD dressing cloth tape and an abduction pillow sling for the upper extremity. Patient woken up from the general anesthetic transferred off the operating table taken to postanesthetic care unit in stable condition. All sponge needle instrument counts were correct no complications. Plan for the patient discharged home according to day surgery criteria follow-up in the office in 2 days time. CPT 29549, 84690 Surgical Findings: impingement, bursitis, tendonitis, partial fraying biceps and subscap Complications Complications: No Admit VTE Documentation VTE Present on Admission: No VTE Mechan Device Prophylaxis: SCD's VTE Pharm Prophylaxis ordered?: No Reason prophylaxis not ordered: Treatment Not Indicated
--- NOTE | 2024-04-07 09:30 | PCM.POST.ANE ---
Anesthesia: Postop Eval I Current Vital Signs Temperature: 97.2 F Pulse Rate: 59 Blood Pressure: 150/96 Respiratory Rate: 16 Pulse Ox: 94 Oxygen Delivery Method: Room Air Assessment Airway patent: Yes Spontaneous unlabored respirations: Yes Mental status: Awake and Calm nausea: No Vomiting: No Anesthesia Complication: No Fluid Hydration Crystalloid volume administer (ml): 1,000 Total IV fluid infused: 1,000 Progress Note Anesthesia document: Postop Eval 1 completed: Yes
--- NOTE | 2024-04-07 10:17 | SUR.PHASEII ---
patient requests that family help them to dress for home
--- NOTE | 2024-04-07 11:27 | POSTOPAN2_ITS ---
Anesthesia Postop Eval I Sum Postop Eval Completion status Anesthesia document: Postop Eval 1 completed: Yes Anesthesia Postop Eval I Summary Anesthesia Postop Eval I Summary: Anesthesia Postop Eval I: Assessment Summary Airway patent Yes 04/07/24 09:31 [email or web address] [email or web address] Spontaneous unlabored Yes 04/07/24 09:31 MANAGER [email or web address] respirations Mental status Awake,Calm 04/07/24 09:31 MANAGER [email or web address] nausea No 04/07/24 09:31 MANAGER [email or web address] Vomiting No 04/07/24 09:31 MANAGER [email or web address] Anesthesia Postop Eval I: Fluid Summary Crystalloid volume administer 1,000 04/07/24 09:31 [email or web address] [email or web address] (ml) Colloids volume administered ( ml) Blood Product volume administered (ml) Total IV fluid infused 1,000 04/07/24 09:31 MANAGER [email or web address] Anesthesia Postop Eval I: Summary Notes Anesthesia Complication No 04/07/24 09:31 MANAGER [email or web address] Anesthesia Complication Comment: Post-operative progress note Anesthesia: Postop Eval II Evaluation Mental status: Awake Pain Level: 0 nausea: No Vomiting: No
--- NOTE | 2024-04-07 11:27 | PCM.POSTANE2 ---
Anesthesia Postop Eval I Sum Postop Eval Completion status Anesthesia document: Postop Eval 1 completed: Yes Anesthesia Postop Eval I Summary Anesthesia Postop Eval I Summary: Anesthesia Postop Eval I: Assessment Summary Airway patent Yes 04/07/24 09:31 BRIDGE CRANE [email or web address] Spontaneous unlabored Yes 04/07/24 09:31 BRIDGE CRANE [email or web address] respirations Mental status Awake,Calm 04/07/24 09:31 BRIDGE CRANE [email or web address] nausea No 04/07/24 09:31 BRIDGE CRANE [email or web address] Vomiting No 04/07/24 09:31 BRIDGE CRANE [email or web address] Anesthesia Postop Eval I: Fluid Summary Crystalloid volume administer 1,000 04/07/24 09:31 BRIDGE [email or web address] (ml) Colloids volume administered ( ml) Blood Product volume administered (ml) Total IV fluid infused 1,000 04/07/24 09:31 BRIDGE CRANE [email or web address] Anesthesia Postop Eval I: Summary Notes Anesthesia Complication No 04/07/24 09:31 BRIDGE CRANE [email or web address].[email or web address] Anesthesia Complication Comment: Post-operative progress note Anesthesia: Postop Eval II Evaluation Mental status: Awake Pain Level: 0 nausea: No Vomiting: No
== END 2024-04-07 10:39 | disposition home or self-care (01) ==
LOC: SDC 05:29 → AC 05:29
PROVIDERS: Anesthesiology; PCP Family Medicine; Referring Provider Orthopaedic Surgery Sports Medicine; Visit Provider Orthopaedic Surgery Sports Medicine
PROC: (CPT 29805; principal; 2024-04-07 07:10)
DX: M67.814 Other specified disorders of tendon, left shoulder (principal); E11.9 Type 2 diabetes mellitus without complications; M75.40 Impingement syndrome of unspecified shoulder; M25.512 Pain in left shoulder; M75.20 Bicipital tendinitis, unspecified shoulder; Z79.1 Long term (current) use of non-steroidal anti-inflammatories (NSAID); G89.29 Other chronic pain; I10 Essential (primary) hypertension; M75.50 Bursitis of unspecified shoulder; F17.200 Nicotine dependence, unspecified, uncomplicated; Z98.84 Bariatric surgery status; Z87.19 Personal history of other diseases of the digestive system; K21.9 Gastro-esophageal reflux disease without esophagitis; Z86.718 Personal history of other venous thrombosis and embolism; Z96.653 Presence of artificial knee joint, bilateral; Z79.82 Long term (current) use of aspirin; Z99.89 Dependence on other enabling machines and devices
CPT/HCPCS: 29826; 29822; 01630; 64450; 36415; 85027; 93005; A4216; J2405

== ENCOUNTER → 2024-05-17 | Outpatient (CLI) | payer OTHER, SELFPAY ==
[2024-05-17 11:58] LABS: Absolute Neutrophil Count 3.4 X10^3/uL (2.0-7.7); Basophil# 0.04 X10^3/uL; Basophil% 0.7 % (0-1); Eosinophil# 0.17 X10^3/uL; Eosinophils% 2.9 % (0-5); Hematocrit 48.1 % (40-54); Hemoglobin 15.6 g/dL (13.0-16.5); Lymphocyte % 30.6 % (19-41); Mean Corp Hgb Conc 32.4 g/dL (32-36); Mean Corpuscular Hgb 29.4 pg (27.0-32.0); Mean Corpuscular Volume 90.8 fL (80-94); Mean Platelet Vol. 11.2 fl (6.2-12.0); Monocyte# 0.51 X10^3/uL; Monocyte% 8.7 % (0-10); NRBC Flagged by Analyzer 0 % (0-5); Neutrophil # 3.36 X10^3/uL (2.7-7.7); Neutrophil % 56.9 % (47-70); Platelet Count 212 K/mm3 (150-450); RBC Distribution Width CV 13.2 % (11.6-14.6); RBC Distribution Width SD 43.8 fl (35.1-43.9); White Blood Count 5.9 K/mm3 (4.4-11.0)
[2024-05-17 12:09] LABS: Vitamin D,25 Hydroxy 87.2 ng/mL
[2024-05-17 12:16] LABS: ALB/GLOB Ratio 1.3 RATIO (0.9-2.4); AST(SGOT) 10 U/L (15-37); Alanine Aminotransfer ALT/SGPT 21 U/L (16-61); Albumin, Serum 3.8 g/dL (3.2-5.0); Alkaline Phosphatase 56 U/L (45-117); Anion Gap 2 (5-15); BUN 25 mg/dL (7-18); BUN/Creat Ratio 21.9 RATIO (10-20); Calcium,Total 9.3 mg/dL (8.5-10.1); Chloride 109 mmol/L (98-107); Cholesterol 161 mg/dL (200); Creatinine, Serum 1.14 mg/dL (0.70-1.30); EST Glomerular Filtration Rate 71 mL/min (>60); Est Glom Filt Rate - Afr Amer 85 mL/min (>60); Globulin 2.9 g/dL (2.2-4.2); Glucose 104 mg/dL (74-106); High Density Lipoprotein 52 mg/dL; PSA,Total - Annual Screen 0.69 ng/mL (0.00-4.00); Potassium 4.2 mmol/L (3.5-5.1); Protein, Total 6.7 g/dL (6.4-8.2); Sodium Level 140 mmol/L (136-145); Thyroid Stim Hormone (TSH) 0.616 uIU/mL (0.358-3.740); Triglycerides 184 mg/dL; Very Low Density Lipoprotein 37 mg/dL (5-40)
== END | disposition home or self-care (01) ==
LOC: BFHLAB 10:23
PROVIDERS: PCP Family Medicine; Visit Provider Family Medicine
DX: Z00.00 Encounter for general adult medical examination without abnormal findings (principal); Z12.5 Encounter for screening for malignant neoplasm of prostate; M85.852 Other specified disorders of bone density and structure, left thigh
CPT/HCPCS: 36415; 80053; 80061; 82306; 84153; 84443; 85025; G0103

== ENCOUNTER 2024-05-27 10:00 | Outpatient (RCR) | payer OTHER, SELFPAY ==
--- NOTE | 2024-04-27 10:53 | HP.PTEVAL_ITS ---
Patient's Visit Information Visit Information Visit Information: MIRIAM BURTON is a 54 year old M referred to Physical Therapy by Dr. Ernesto Ramirez MD with a diagnosis of 04/07/24 Left shoulder arthroscopy, subacromial decompression, debridement. Date of Evaluation: 04/27/24 Physical Therapist: Adelaide France DPT Visit Plan Frequency: 2x /Week Duration: 4 Weeks Plan: Left shoulder arthroscopy, subacromial decompression, debridement 04/07/24 Focus on painfree ROM and scapular s/s HEP Given IE: Posture, Upper Trap Stretch, Levator Stretch, scapular retraction, shoulder cane flexion, shoulder abduction cane Subjective Subjective: Left shoulder arthroscopy, subacromial decompression, debridement 04/07/24. He went home after surgery- he had a sling- he saw and he does not have to wear it. The shoulder is sore- Worst: 7/10 Agg: laying in bed, moving it behind his back, Eases: hold it to his body. Best: 0/10. The pain is located in the AC joint and radiates to the deltoid. No N/T in the finger. He is right hand dominate. He has had some neck pain- but no blurred vision, SPICER, dizziness. Sleep: bed- does keep him up at night- will wake him up- side sleeper. Work: does not work. Is getting scheduled for back surgery- anterior/posterior fusion. Is not wearing the sling at all. PMHx/Meds: no changes since ortho visit. Objective Objective: Posture: forward head, rounded shoulders, increased kyphosis- increased guarding of the left UE Gait: decreased arm swing of the left UE Palpation: tender along levator insertion, upper trap and bicipital groove ROM: Elbow/wrist/hand: WNL, cervical: WNL with increased discomfort with sb, Shoulder: AROM: flexion: 80 degrees, abd: 30 degrees, IR: to greater troch, ER: 40 degrees, PROM: flexion: 120 degrees, abd: 140 degrees, IR: to belly, ER: 60 degree Strength: Scap: poor, Shoulder: Isometric: 3+/5 with pain, Elbow: 4+/5, Manager Patient: equal to other side Observation: incisions well healed Balance/Special Test Scores Quick DASH Score: [id number] Goals Goal 1:: Patient will be I with HEP and progression Goal Time Frame: 4-6 Weeks Goal 2:: Patient will demo full AROM with the left shoulder Goal Time Frame: 4-6 Weeks Goal 3:: Patient will maintain proper posture t/o tx to demo increased scap s/s Goal Time Frame: 4-6 Weeks Rehabilitation Potential Physical Therapy Diagnosis: Patient presents with hypomobility- he has decreased scapular strength/stabilization, pain free ROM and muscular endurance leading to poor posture and increased pain with ADLs Rehabilitation Potential: Good Anticipated Interventions Patient/Client Instruction: Educate patient on: Benefits of Fitness Program Therapeutic Exercise to Include: Strength training, Endurance training, Coordi nation, Agility training, Body mechanics, Postural training, Flexibilty training, Neuromotor development, Passive ROM, Active ROM, Dynamic Lumbar Stabilization and Scapular Strength/Stabilization TENS: Yes Cryotherapy (ice pack, ice massage): Yes Thermo therapy (hot pack): Yes Ultrasound (thermal/non thermal): Yes Text: Thank you for the opportunity to evaluate your patient. For Medicare and Medicare HMO plans, please review the plan of care and approve it. It will need to be FAXED BACK to us at [phone] for Medicare purposes. For Medicare only, by signing this I certify the plan of care. Please let me know if there are questions or concerns regarding this plan of care. Physician Signature: Date:
== END 2024-05-27 19:00 | disposition home or self-care (01) ==
LOC: PT 10:00
PROVIDERS: PCP Family Medicine; Referring Provider Orthopaedic Surgery Sports Medicine; Visit Provider Orthopaedic Surgery Sports Medicine
DX: Z47.89 Encounter for other orthopedic aftercare (principal)
CPT/HCPCS: 97110; 97162

== ENCOUNTER 2024-06-21 14:27 | Inpatient (IN) | payer OTHER, MEDICARE, SELFPAY ==
--- NOTE | 2024-06-04 13:31 | PAT.ANE_ITS ---
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 When Was Last Pacemaker Check QUESTION #4 FULL TEXT: You/Your Family Experience fever (hyperthermia) with Anesthesia Last Oral Intake Last Oral intake: Last Oral Intake NPO since Meds taken in AM with sips of water? 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 Female No 06/04/24 11:16 HX of Motion Sickness No 06/04/24 11:16 HX of N/V After Surgery No 06/04/24 11:16 Non-Smoker No 06/04/24 11:16 Duration of Surgery greater Yes 06/04/24 11:16 than 60 minutes Number of Risk Factors 1 06/04/24 11:16 PONV Score Low Risk 06/04/24 11:16 Height & Weight Height & Weight: Anesthesia: Height & Weight Height 5 ft 9 in 04/07/24 06:01 Respiratory Assessment Respiratory Assessment - naval surface fire support planner: Respiratory Tract Infection Hx - naval surface fire support planner Hx Respiratory Tract Infection No 06/04/24 11:16 STOP Sleep Apnea STOP Sleep Apnea - naval surface fire support planner: STOP Sleep Apnea - naval surface fire support planner Hx Hypertension Yes 06/04/24 11:16 Hx Sleep Apnea Yes 06/04/24 11:16 CPAP Yes 06/04/24 11:16 BIPAP No 06/04/24 11:16 Do you snore loudly (louder than talking or can be heard Do you often feel tired/ fatigued/ sleepy during daytime? Has anyone observed you stop breathing during sleep? STOP Results Positive 06/04/24 11:16 QUESTION #5 FULL TEXT : Do you snore loudly (louder than talking or can be heard through closed doors)? 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 Specify any problems Hx of Preganancy in last 3 N/A 06/04/24 11:16 Months Nurse Filling Out Transfusion [facility] 06/04/24 11:16 & Questions: Date: 06/04/24 06/04/24 11:16 Time: 11:20 06/04/24 11:16 Patient unable to answer at this time (ie. 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 Traumatic open wound of right lower leg Chronic wound of extremity Degenerative disc disease Varicose veins with inflammation History of hemorrhoids Hypertension GERD (gastroesophageal reflux disease) History of deep vein thrombosis History of diabetes mellitus CPAP (continuous positive airway pressure) dependence Obstructive sleep apnea Arthritis Obesity (BMI 35.0-39.9 without comorbidity) Wears glasses Alcohol use History of steroid therapy DVT (deep venous thrombosis) Back pain Gastric reflux CPAP (continuous positive airway pressure) dependence Leg cramps History of echocardiogram History of stress test Hypertension Varicose veins of right lower extremity Lab test negative for COVID-19 virus Disorder of uvula Diabetes Hemorrhoids Arthritis Home Medications ?Medication ?Instructions ?Recorded ?Last Taken ?Type calcium 315 mg (as 2 tab PO QHS SUPPLEMENT 03/2904/06/24 History citrate)-vitamin D3 5 mcg (200 unit) tablet (Calcium Citrate + D) multivitamin 2 cap PO DAILY SUPPLEMENT 04/06/24 History amlodipine 5 mg tablet 5 mg PO DAILY BP 08/04/20 History mecobalamin (vitamin B12) 1,000 1,500 mcg sublingual D AILY 08/04/20 04/06/24 History mcg disintegrating SUPPLEMENT tablet,sublingual metoprolol succinate 25 mg 25 mg PO DAILY BP 08/04/20 04/07/24 History tablet,extended release 24 hr pantoprazole 20 mg tablet,delayed 40 mg PO DAILY GERD 01/29/21 04/07/24 History release (Protonix) celecoxib 200 mg capsule (Celebrex) 200 mg PO BID PAIN 05/23/21 04/06/24 History cholecalciferol (vitamin D3) 10 10 mcg PO DAILY SUPPLE MENT 01/08/22 04/06/24 History mcg (400 unit) capsule (Vitamin D3) magnesium 1 tab PO QHS SUPPLEMENT 12/2704/06/24 History gabapentin 100 mg capsule 100 mg PO BID PAIN 02/11/22 04/07/24 History aspirin 81 mg tablet,delayed 81 mg PO DAILY SUPPLEMENT 10/02/22 04/06/24 History release (Adult Aspirin Regimen) fiber 2 cap PO QHS SUPPLEMENT 12/1904/06/24 History trazodone 50 mg tablet 100 mg PO QHS to sleep throu gh the 02/03/24 Unknown History night amoxicillin 500 mg tablet 2,000 mg (4 x 500 mg) PO ONC E 04/23/24 Unknown Rx DENTAL PROCEDURES #4 tabs Allergy/AdvReac Type Severity Reaction Status Date / Time olmesartan medoxomil (From Allergy Itching Verified 05/17/24 10:47 Rona) Family History Other Breast cancer Surgical History History of bilateral knee arthroplasty History of root canal procedure Hx of knee surgery Hx of arthroplasty Hx of gastric bypass Hx of knee surgery Hx of colonoscopy History of tonsillectomy History of gastric restrictive surgery History of shoulder surgery History of arthroscopic knee surgery History of umbilical hernia repair History of surgical removal of ganglion cyst hx of gastric sleeve H/O shoulder surgery H/O hernia repair H/O knee surgery H/O foot surgery Deviated septum History of tonsillectomy Social History Smoking Status: Current some day smoker tobacco type: cigars alcohol intake: current alcohol intake frequency: holidays/special occasions only Audit: Pertinent Findings Pertinent Findings EKG Perinent findings: 03/29/2024 sinus bradycardia with sinus arrhythmia 55 bpm Recommendation Anesthesia Recommendation Anesthesia recommendation: OPTIMIZED for anesthesia
[2024-06-11 14:00] LABS: Magnesium 1.9 mg/dL (1.6-2.6)
[2024-06-13 12:07] LABS: Hepatitis A AB, Total Negative (Negative)
[2024-06-15 14:50] LABS: HIV - WCH Non-Reactive (Nonreactive); Hepatitis B Surface Antibody Non-Reactive; Hepatitis C Antibody Non-Reactive (Nonreactive)
[2024-06-21] VITALS (16 sets, daily range): BP systolic 116–155; BP diastolic 58–89; PULSE 51–76; RESP 14–18; TEMP -12.7–36.9; O2SAT 96–100; BMI 37.9; BMI 37.8
[2024-06-21] MEDS: 0.9% Normal Saline (1000mL) 1,000 ML 15 ML IV (06:48)
[2024-06-21] MEDS: Acetaminophen 500 MG Tablet 1000 MG PO ×2 (06:49→21:32)
[2024-06-21] MEDS: Magnesium 2 GM for ERAS IV (06:49)
--- NOTE | 2024-06-21 07:23 | PCM.HP.BLA ---
History and Physical Date of Admission: 06/21/24 MR#: [id number] Acct: [id number] Name: MIRIAM BURTON Rep #: [id number] : 1970 Provider: Dr. Jai Miranda MD Age/Sex: 54/M Location: [facility] [place] Status: Signed Intake Vital Signs 04/07/2406:01 Height 5 ft 9 in Intake Visit Reasons: lumbar spine Chief Complaint: pre op lumbar spine Is patient in pain?: Yes (lumbar spine ) Pain scale (1-10): 4 Allergies olmesartan medoxomil (From Benicar) Allergy (Verified 06/11/24 10:52) Itching Medications ?Medication ?Instructions ?Recorded ?Confirmed ?Type calcium 315 mg (as 2 tab PO QHS SUPPLEMENT 04/25/20 06/11/24 History citrate)-vitamin D3 5 mcg (200 unit) tablet (Calcium Citrate + D) multivitamin 2 cap PO DAILY SUPPLEMENT 04/25/20 06/11/24 History amlodipine 5 mg tablet 5 mg PO DAILY BP 08/04/20 06/11/24 History mecobalamin (vitamin B12) 1,000 1,500 mcg sublingual DAILY 08/04/20 06/11/24 History mcg disintegrating SUPPLEMENT tablet,sublingual metoprolol succinate 25 mg 25 mg PO DAILY BP 08/04/20 06/11/24 History tablet,extended release 24 hr pantoprazole 20 mg tablet,delayed 40 mg PO DAILY GERD 01/29/21 06/11/24 History release (Protonix) celecoxib 200 mg capsule (Celebrex) 200 mg PO BID PAIN 05/23/21 06/11/24 History cholecalciferol (vitamin D3) 10 10 mcg PO DAILY SUPPLEMENT 01/08/22 06/11/24 History mcg (400 unit) capsule (Vitamin D3) magnesium 1 tab PO QHS SUPPLEMENT 01/08/22 06/11/24 History gabapentin 100 mg capsule 100 mg PO BID PAIN 02/11/22 06/11/24 History aspirin 81 mg tablet,delayed 81 mg PO DAILY SUPPLEMENT 10/02/22 06/11/24 History release (Adult Aspirin Regimen) fiber 2 cap PO QHS SUPPLEMENT 02/03/24 06/11/24 History trazodone 50 mg tablet 100 mg PO QHS to sleep through the 02/03/24 06/11/24 History night amoxicillin 500 mg tablet 2,000 mg (4 x 500 mg) PO ONCE 04/23/24 06/11/24 Rx DENTAL PROCEDURES #4 tabs PFSH Medical History History of edema Tendinosis of left shoulder Strain of right hand Smoker Acute bronchitis, unspecified Contact with and (suspected) exposure to other viral communicable diseases 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 Traumatic open wound of right lower leg Chronic wound of extremity Degenerative disc disease Varicose veins with inflammation History of hemorrhoids Hypertension GERD (gastroesophageal reflux disease) History of deep vein thrombosis History of diabetes mellitus CPAP (continuous positive airway pressure) dependence Obstructive sleep apnea Arthritis Obesity (BMI 35.0-39.9 without comorbidity) Wears glasses Alcohol use History of steroid therapy DVT (deep venous thrombosis) Back pain Gastric reflux CPAP (continuous positive airway pressure) dependence Leg cramps History of echocardiogram History of stress test Hypertension Varicose veins of right lower extremity Lab test negative for COVID-19 virus Disorder of uvula Diabetes Hemorrhoids Arthritis Surgical History History of bilateral knee arthroplasty History of root canal procedure Hx of knee surgery Hx of arthroplasty Hx of gastric bypass Hx of knee surgery Hx of colonoscopy History of tonsillectomy History of gastric restrictive surgery History of shoulder surgery History of arthroscopic knee surgery History of umbilical hernia repair History of surgical removal of ganglion cyst hx of gastric sleeve H/O shoulder surgery H/O hernia repair H/O knee surgery H/O foot surgery Deviated septum History of tonsillectomy Family History Other Breast cancer Social History Smoking Status: Current some day smoker tobacco type: cigars alcohol intake: current alcohol intake frequency: holidays/special occasions only HPI lumbar spine Chief Complaint: lumbar spine Details: This documentation accurately reflects the service provided and the decisions made by me, Dr. Jai Miranda MD 06/11/24 1050. Part of today?s visit was documented by [ ], acting as scribe. MIRIAM HUERTACHRIS is a 54 year old M here today for pre-op lumbar spine 360 fusion, DOS 06-21-24. 04/06/24: MIRIAM BURTON is a 53 year old M here today for MRI review of his lumbar spine. He denies any changes today. Miriam continues to have low back pain and bilateral buttock pain and difficulty walking distances with legs feeling heavy. His symptoms seem to be equal on both sides. He denies any anterior thigh pain but does mention numbness bilaterally after standing for long period of time. 01/30/24: MIRIAM BURTON is a 53 year old M here today for low back pain. Pt. was seen by Dr. Gamez last October who had gone over his lumbar MRI at that time. Pt. advises he has been experiencing low back pain for 15 years and has progressively gotten worse. He has recently had bilateral knee replacements and was waiting for those to heal before following up for his lumbar pain. He denies known back injury. He states his low back pain is constantly achy across bilaterally and alternates from left to right at times. He states it is tender to touch and his pain is sharp at times with bending. He has radiculopathy into his bilateral glutes. He denies numbness, tingling. He has been receiving low back steroid injections from Dr. Coughlin which are helpful for about 2 months. Says that he has had 15-18 years of injections. He has done PT for his back earlier this year. Says that he feels that he needs to lean forward to help relieve some of this pain. Ortho Exam General General: Yes no acute distress Neurologic: Yes alert and Yes oriented x3 Spine SPINE TESTING CERVICAL THORACIC LUMBAR Musculoskeletal Strength 0=absent - 5=normal Details: Neurological exam of the lower extremities shows 5x5 power. Normal sensations across all dermatomes. No hyperreflexia. Mild midline and left paraspinal tenderness. Coding Level of Care Code Off vis,est,level 4 Diagnoses Spondylolisthesis, lumbar region M43.16 Other intervertebral disc degeneration, lumbar region with discogenic back pain only M51.360 Time Spent (min) 35 Assessment and Plan Assessment and Plan (1) Spondylolisthesis, lumbar region: Status: Acute (2) Other intervertebral disc degeneration, lumbar region with discogenic back pain only: Status: Acute Plan Again Reviewed x-rays again and recently done MRI with the patient. Xrays shows limb length discrepancy. Xrays shows isthmic grade 2 spondylolisthesis of L5 on S1 and loss of disc height at this level. Mild instability on flexion-extension views noticed. MRI shows L5-S1 central disc bulge and severe bilateral foraminal stenosis, L3-4 and L4-5 also showed disc degeneration with foraminal stenosis. Explained to him the imaging findings in detail. Explained the etiology of this pars defect. He continues to have back pain that has been progressively worsening. He has developed significant neurogenic claudication with difficulty walking and standing for long period of time. His activities of daily living are getting affected to some extent. Explained to him treatment options which include continued nonoperative treat measures versus surgery. He has had numerous epidural injections which only helped bleeding temporarily. He feels like his function is declining with time. He wishes to proceed with surgical intervention. He has an upcoming shoulder procedure. I would like to keep him at least 6 weeks Between the surgery and the lumbar surgery. Lumbar surgical options were discussed. L3-S1 anterior posterior fusion with indirect decompression was discussed in detail. Risks benefits and Alternatives were discussed in detail. The risks include but are not limited to infection, bleeding, injury to nerves and vessels, nerve root injury, foot drop, persistent pain, persistent weakness and numbness, visceral injury, ileus, need for further surgery, hardware failure, pseudoarthrosis, DVT, pulm embolism, cardiopulmonary event, pneumonia, atelectasis. Patient understands and agrees to proceed with surgery. Consent was signed.
--- NOTE | 2024-06-21 07:41 | PCM.PRE.AN2 ---
ASA Classification* ASA Classification ASA Classification: 3 Assessment & Plan Anesthesia* Anesthesia Assessment Anesthesia Assessment: Discussed sedation and/or anesthesia options, risks, benefits, and alternatives with patient/parents/legal guardian/POA. Questions invited. The patient/parents/legal guardian/POA seems to understand and agrees to proceed with anesthesia plan. Reviewed the physical assessment, medical history, allergy history and patient home medications list prior to surgery/procedure/anesthetic and documented any changes. Performed airway and anesthesia risk assessments. Anesthesia Type Anesthesia Type: General (patient reports delayed emergence after GA, discussed risks of that happening again. also discussed dental trauma, PONV, NC, stroke. okay for blood transfusions) History Source History Obtained from:: Patient and Chart Anesthesia Focused Assessment* Temperature: 98.4 F Pulse Rate: 51 Blood Pressure: 126/88 Respiratory Rate: 14 Pulse Ox: 100 Oxygen Delivery Method: Room Air Airway Assessment Mouth opens: 2 cm Mallampati Score: II Teeth Condition: Intact Neck Range of motion (ROM): Full ROM Focused Labs Anesthesia Preop lab: CBC WBC 5.9 K/mm3 (4.4-11.0) 05/17/24 10:25 05/17/24 RBC 5.30 M/mm3 (4.6-6.2) 05/17/24 10:25 05/17/24 Hgb 15.6 g/dL (13.0-16.5) 05/17/24 10:25 05/17/24 Hct 48.1 % (40-54) 05/17/24 10:25 05/17/24 Plt Count 212 K/mm3 (150-450) 05/17/24 10:25 05/17/24 CHEMISTRY Potassium 4.2 mmol/L (3.5-5.1) 05/17/24 10:25 05/17/24 Sodium 140 mmol/L (136-145) 05/17/24 10:25 05/17/24 Magnesium 1.9 mg/dL (1.6-2.6) 06/11/24 12:58 06/11/24 BUN 25 mg/dL (7-18) H 05/17/24 10:25 05/17/24 Creatinine 1.14 mg/dL (0.70-1.30) 05/17/24 10:25 05/17/24 Glucose 104 mg/dL (74-106) 05/17/24 10:25 05/17/24 POC Glucose 81 mg/dL (74-106) 01/28/23 06:16 01/28/23 TSH 0.616 uIU/mL (0.358-3.740) 05/17/24 10:25 05/17/24 COAG PT 12.7 SECONDS (11.7-14.9) 01/15/23 11:02 01/15/23 Pre-Assessment Diagnosis/Proposed Procedure Planned Operative Procedure(s): 360 Lumbar Fusion L3-4, L4-5 and L5-S1 Anesthesia History Anesthesia History - imaging assistant: Anesthesia History - imaging assistant Hx Hospitalization No 06/04/24 11:16 Any Problems With Anesthesia Yes: SLOW TO WAKE UP 06/04/24 11:16 Cholinesterase deficiency No 06/04/24 11:16 You/Your Family Experience No 06/04/24 11:16 fever (hyperthermia) with Relationship Recent Exposure to Contagious No 06/21/24 06:38 Disease Does patient have nerve No 06/04/24 11:16 stimulator Patient instructed to have device shut off --Does patient have Pacemaker No 06/21/24 06:38 or ICD? When Was Last Pacemaker Check QUESTION #4 FULL TEXT: You/Your Family Experience fever (hyperthermia) with Anesthesia Last Oral Intake Last Oral intake: Last Oral Intake NPO since 04:00 06/21/24 06:38 Meds taken in AM with sips of Yes 06/21/24 06:38 water? Meds patient instructed to metoprolol, norvasc, 06/21/24 06:38 take am of surgery protonix PONV PONV - imaging assistant: PONV - imaging assistant Female No 06/04/24 11:16 HX of Motion Sickness No 06/04/24 11:16 HX of N/V After Surgery No 06/04/24 11:16 Non-Smoker No 06/04/24 11:16 Duration of Surgery greater Yes 06/04/24 11:16 than 60 minutes Number of Risk Factors 1 06/04/24 11:16 PONV Score Low Risk 06/04/24 11:16 Height & Weight Height & Weight: Anesthesia: Height & Weight Height 5 ft 10 in 06/21/24 06:38 Weight: 120 kg 06/21/24 06:38 Body Mass Index (BMI) 37.9 06/21/24 06:38 Respiratory Assessment Respiratory Assessment - imaging assistant: Respiratory Tract Infection Hx - imaging assistant Hx Respiratory Tract Infection No 06/04/24 11:16 STOP Sleep Apnea STOP Sleep Apnea - imaging assistant: STOP Sleep Apnea - imaging assistant Hx Hypertension Yes 06/04/24 11:16 Hx Sleep Apnea Yes 06/04/24 11:16 CPAP Yes 06/04/24 11:16 BIPAP No 06/04/24 11:16 Do you snore loudly (louder than talking or can be heard Do you often feel tired/ fatigued/ sleepy during daytime? Has anyone observed you stop breathing during sleep? STOP Results Positive 06/04/24 11:16 QUESTION #5 FULL TEXT : Do you snore loudly (louder than talking or can be heard through closed doors)? Tobacco Use History Tobacco Use History - imaging assistant: Tobacco Use History - imaging assistant Tobacco Use Smoking Status Current some day smoker 06/04/24 11:16 Hx Tobacco Use Yes 06/04/24 11:16 Years Smoking Packs Smoked per Day Smoking Cessation Date was within the last 15 years Hx Smoking Cessation Date Hx Smoking Cessation No 06/04/24 11:16 Counseling Hematologic Medial History Hematologic Hx - imaging assistant: Hematologic Medical Hx - pressure tester operator Hx of Blood Transfusion No 06/04/24 11:16 Hx of Transfusion in last 3 No 06/04/24 11:16 Months Date of Last Transfusion (if within last 3 months) Ever experience any problems No 06/04/24 11:16 with transfusion(s)? Specify any problems Hx of Preganancy in last 3 N/A 06/04/24 11:16 Months Nurse Filling Out Transfusion E[facility]MAN 06/04/24 11:16 & Questions: Date: 06/04/24 06/04/24 11:16 Time: 11:20 06/04/24 11:16 Patient unable to answer at this time (ie. confused, unrespo /Reproduction History /Reproductive History - imaging assistant: /Reproductive Hx- imaging assistant Hx Now Gestational Age (in weeks): EDC: Hx Hx Para Hx Section SAB No 03/29/24 08:30 Active Medications Active Medications: Current Medications Generic Name Dose Route Start Last Admin Trade Name Freq PRN Reason Stop Dose Admin Tranexamic Acid 1,000 mg/ 110 mls @ 440 mls/hr 06/21/24 07:30 Sodium Chloride IV 06/21/24 07:44 X1 ONE Tranexamic Acid 1,000 mg/ 110 mls @ 440 mls/hr 06/21/24 07:30 Sodium Chloride IV 06/21/24 07:44 X1 ONE Magnesium Sulfate 2 gm/ 104 mls @ 208 mls/hr 06/21/24 07:30 06/21/24 06:49 Dextrose IV 06/21/24 07:59 208 mls/hr X1 ONE Administration Sodium Chloride 1,000 mls @ 15 mls/hr 06/21/24 06:05 06/21/24 06:48 IV 06/26/24 19:24 15 mls/hr .Q48H YAMILE Administration Protocol Insulin Human Lispro 1 - 6 unit 06/21/24 07:30 Insulin Lispro 100 Unit/Ml Insuln.Pen SC 06/21/24 23:59 Q4H PRN PRN BG>/= 180, SEE PROTOCOL Protocol PFSH Medical History History of edema Tendinosis of left shoulder Strain of right hand Smoker Acute bronchitis, unspecified Contact with and (suspected) exposure to other viral communicable diseases 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 Traumatic open wound of right lower leg Chronic wound of extremity Degenerative disc disease Varicose veins with inflammation History of hemorrhoids Hypertension GERD (gastroesophageal reflux disease) History of deep vein thrombosis History of diabetes mellitus CPAP (continuous positive airway pressure) dependence Obstructive sleep apnea Arthritis Obesity (BMI 35.0-39.9 without comorbidity) Wears glasses Alcohol use History of steroid therapy DVT (deep venous thrombosis) Back pain Gastric reflux CPAP (continuous positive airway pressure) dependence Leg cramps History of echocardiogram History of stress test Hypertension Varicose veins of right lower extremity Lab test negative for COVID-19 virus Disorder of uvula Diabetes Hemorrhoids Arthritis Home Medications ?Medication ?Instructions ?Recorded ?Last Taken ?Type calcium 315 mg (as 2 tab PO QHS SUPPLEMENT 04/25/20 06/20/24 History citrate)-vitamin D3 5 mcg (200 unit) tablet (Calcium Citrate + D) multivitamin 2 cap PO DAILY SUPPLEMENT 04/25/20 04/06/24 History amlodipine 5 mg tablet 5 mg PO DAILY BP 08/04/20 06/21/24 04:00 History mecobalamin (vitamin B12) 1,000 1,500 mcg sublingual DAILY 08/04/20 06/20/24 History mcg disintegrating SUPPLEMENT tablet,sublingual metoprolol succinate 25 mg 25 mg PO DAILY BP 08/04/20 06/21/24 04:00 History tablet,extended release 24 hr pantoprazole 20 mg tablet,delayed 40 mg PO DAILY GERD 01/29/21 06/21/24 04:00 History release (Protonix) celecoxib 200 mg capsule (Celebrex) 200 mg PO BID PAIN 05/23/21 06/20/24 History cholecalciferol (vitamin D3) 10 10 mcg PO DAILY SUPPLEMENT 01/08/22 06/20/24 History mcg (400 unit) capsule (Vitamin D3) magnesium 1 tab PO QHS SUPPLEMENT 01/08/22 06/20/24 History gabapentin 100 mg capsule 100 mg PO BID PAIN 02/11/22 06/20/24 History aspirin 81 mg tablet,delayed 81 mg PO DAILY SUPPLEMENT 10/02/22 06/20/24 History release (Adult Aspirin Regimen) fiber 2 cap PO QHS SUPPLEMENT 02/03/24 06/20/24 History trazodone 50 mg tablet 100 mg PO QHS to sleep through the 02/03/24 06/20/24 History night amoxicillin 500 mg tablet 2,000 mg (4 x 500 mg) PO ONCE 04/23/24 06/01/24 Rx DENTAL PROCEDURES #4 tabs Allergy/AdvReac Type Severity Reaction Status Date / Time olmesartan medoxomil (From Allergy Itching Verified 06/21/24 06:35 Rona) Family History Other Breast cancer Surgical History History of bilateral knee arthroplasty History of root canal procedure Hx of knee surgery Hx of arthroplasty Hx of gastric bypass Hx of knee surgery Hx of colonoscopy History of tonsillectomy History of gastric restrictive surgery History of shoulder surgery History of arthroscopic knee surgery History of umbilical hernia repair History of surgical removal of ganglion cyst hx of gastric sleeve H/O shoulder surgery H/O hernia repair H/O knee surgery H/O foot surgery Deviated septum History of tonsillectomy Social History Smoking Status: Current some day smoker tobacco type: cigars alcohol intake: current alcohol intake frequency: holidays/special occasions only Review of Systems (Anesthesia) ROS Narrative System reviewed and no additional complaints, except as documented.
[2024-06-21] MEDS: Cefazolin 2 GM in Syringe 10 ML IV ×2 (07:43→21:41)
[2024-06-21 07:50] LABS: Bedside Glucose 73 mg/dL (74-106)
[2024-06-21] MEDS: TRANEXAMIC ACID 1,000 MG in 0.9% Normal Saline (100mL Bag) 100 ML 440 MG IV ×2 (07:50→13:46)
--- NOTE | 2024-06-21 08:03 | RAD_ITS ---
EXAM: INTRAOPERATIVE FLUOROSCOPY CLINICAL HISTORY: 360 lumbar fusion L3/4 L4/5 and L5/S1 COMPARISON: None TECHNIQUE: 4 intraoperative images are submitted for review. FINDINGS: The patient is status post laminectomy and posterior fusion utilizing multi screw and rods at the L3/4, L4/5 and L5/S1 levels RAD/Lumbar Spine 2 or 3 Views IMPRESSION: As above Reading Location: [facility]
[2024-06-21] MEDS: Ropivacaine 0.5% 30 ML Vial (14:17)
--- NOTE | 2024-06-21 14:35 | PCM.POST.ANE ---
Anesthesia: Postop Eval I Current Vital Signs Temperature: 9.2 F Pulse Rate: 63 Blood Pressure: 141/64 Respiratory Rate: 14 Pulse Ox: 98 Oxygen Delivery Method: Simple Mask Assessment Airway patent: Yes Spontaneous unlabored respirations: Yes Mental status: Awake nausea: No Vomiting: No Anesthesia Complication: No Fluid Hydration Crystalloid volume administer (ml): 2,500 Total IV fluid infused: 2,500 Progress Note Anesthesia document: Postop Eval 1 completed: Yes
[2024-06-21] MEDS: Ketorolac 15 MG/ML Vial IV (14:59)
--- NOTE | 2024-06-21 15:06 | PCM.OPRPT ---
Procedures Musculoskeletal [id number]: Other Procedure See Report Operative Report (Standard) Operative Information Date of Procedure: 06/21/24 Pre-Operative Diagnosis: L5-S1 spondylolisthesis, L3-S1 disc degeneration, stenosis with neurogenic claudication Post-Operative Diagnosis: Same Surgery/Procedure Performed: L3-S1 oblique lumbar to body fusion forest pathology professor: Yes Ordering Box Operator: Mayco Johnson Tasks completed by assisted living nursing director: Other (Co-surgeon- vascular surgery- approach) Additional blood donor unit assistant?: Yes Additional Resident Inspector #2: Yesenia Coy Tasks completed by blood donor unit assistant #2: Closing, Removing tissue, Hemostasis: Electrocautery and Retracting Type of Anesthesia: General RN Documented Start/Stop Times: Operation Date: 06/21/24 07:30 Case Time Into Pre-Op 06/21/24 06:02 Out of Pre-Op 06/21/24 07:34 Anesthesia Start 06/21/24 07:43 Into Room 06/21/24 07:43 Procedure Start 06/21/24 08:20 Procedure End 06/21/24 14:20 Anesthesia End 06/21/24 14:28 Out of Room 06/21/24 14:28 Into Recovery 06/21/24 14:30 Procedure Start Time: 08:20 Procedure Stop Time: 14:20 Select all DRAINS/GRAFTS/IMPLANTS that apply: Graft Graft details: Allograft cortical cancellous bone chips, autologous bone marrow aspirate and Implanted device Implanted device details: DePuy cougar lateral lumbar interbody cage?peek Estimated Blood Loss: 100 cc Specimen collected: No Description of surgery: Preoperative diagnosis: L5-S1 spondylolisthesis, L3-S1 disc degeneration, stenosis with neurogenic claudication Postoperative diagnosis: Same Name of procedures L3-S1 oblique lumbar interbody fusion (OLIF), minimally invasive left sided approach, lateral decubitus: ? L3-4 anterolateral spinal fusion 35540 ? L4-5 anterolateral fusion 01243/51 ? L5-S1 anterolateral fusion 58811/51 ? L3-4 insertion of cage 98610 ? L4-5 insertion of cage 65180/51 ? L5-S1 insertion of cage 44679/51 ? Bone graft aspirate left iliac crest separate incision ? Allograft cancellous chips Attending Surgeon: Dr. Jai Miranda Co-surgeon: Dr. Mayco Johnson Estimated blood loss: 100 mL Anesthesia: General Complications: None Indications: Patient is a 54-year-old pleasant gentleman who has had a long history of low back pain and bilateral lower extremity radiation and difficulty walking distances. Xrays & MRI revealed L5-S1 spondylolisthesis with L3-S1 disc degeneration and stenosis. After undergoing a prolonged period of nonoperative treatment, the patient elected to undergo surgical decompression & fusion. All surgical options were discussed with the patient including anterior and posterior approaches. All risks and benefits associated with the procedure were explained to the patient. The risks include but are not limited to infection, bleeding, injury to nerves and vessels including major vessels like IVC and aorta, persistent paresthesia, persistent pain, dural tear, need for further procedures, adjacent segment degeneration, pseudoarthrosis, hardware failure, retrograde ejaculation, paralytic ileus, etc. Procedure: The patient was identified in the preoperative holding suite using Unique patient identifiers. Skin was marked, consent was reviewed, and all questions were answered. The patient was then brought back to the operative room. A surgical timeout was performed to make sure correct procedure was being done on the correct patient and all operative room staff were on the same page. General endotracheal anesthesia was then given to the patient. Kaur catheter was inserted. The patient was then carefully positioned in right lateral decubitus position with the left side up on a regular OR table. Axillary roll was placed and all bony prominences were well- padded. Hip positioners were placed in the posterior buttocks and anterior sternal area. The surgical area was prepped and draped in usual fashion. Preoperative antibiotic was injected IV as preoperative antibiotic. A final timeout was then again done just before starting the procedure. A 2 inch incision oblique was taken in the left lower quadrant of the abdomen 2 fingerbreadths away from the iliac crest and the lower ribs. Sharp dissection with Bovie was carried out up to the fascia covering the external oblique. The external oblique, internal oblique and transversus abdominis muscles were split along the muscle fibers and retroperitoneal space was entered. Sponge sticks were utilized to move the bowel and peritoneum [id number]-way and psoas muscle was exposed staying within the retroperitoneal plane. CaptureProof retractor system was positioned and the retractor blade was applied onto the psoas. The interval between psoas and midline structures was developed and appropriate retractors were placed. Once adequate interval was cleared, a disc space was identified and a marker x-ray was taken. This identified the L4-5 disc level. The prepsoas interval was then traced inferiorly to expose the L5-S1 disc. Iliolumbar vein and L5 segmental vein on the left were ligated to allow retraction of the left common iliac vein. Please see details in Dr. Alvarado's operative note. Annulotomy was done with a long handled knife starting at L5-S1. Pituitary was used to remove disc material. Curettes were used to prepare the endplates. Disc space spreaders were utilized to distract and increase the disc height. Near complete discectomy was performed. Trials of serially increasing sizes were used. A [employer] needle was used to aspirate bone marrow from the left anterior iliac crest through a separate incision and this aspirate was mixed with the allograft bone chips. A Depuy [place] cage of size of the 18 x 45 x 12 mm with 15 degrees lordosis was packed with corticocancellous allograft bone chips mixed with bone marrow aspirate. This was inserted into the L5-S1 disc space. The retractors were then repositioned to expose the L4-5 and L3-4 disc and the procedure was repeated with complete discectomy and endplate preparation. Smaller disc distractors were also used to bluntly perform a contralateral annulotomy at the L4-5 and L3-4 levels. Cage size was 18 x 15 x 12 mm at L3-4 and L4-5. AP and lateral C-arm pictures were taken to confirm good position of the cages. Some bone chips were also packed around the cages. Screw with washer was placed into the lower L3 and L5 body with a washer partially covering the cage at L3-4 and L5-S1 respectively. Hemostasis was confirmed. The retractor blades were removed. Closure was done in layers with a continuous strand of # 1 Vicryl in all muscle layers. 2-0 Vicryl was used for subcutaneous tissue and 4-0 for Monocryl for the skin. Steri-Strips were applied and 4 x 4 gauze and Tegaderm were applied. Surgical Findings: See operative note Complications Complications: No
--- NOTE | 2024-06-21 15:11 | OP.PCM_ITS ---
Procedures Musculoskeletal 20xxx-29xxx: Other Procedure See Report Operative Report (Standard) Operative Information Date of Procedure: 06/21/24 Pre-Operative Diagnosis: L5-S1 spondylolisthesis, L3-S1 disc degeneration with stenosis with neurogenic claudication Post-Operative Diagnosis: Same Surgery/Procedure Performed: L3-S1 posterior spinal instrumented fusion director corporate sales: Yes Motion Picture Film Examiner: Yesenia Coy Tasks completed by sampler first: Closing, Implanting device, Hemostasis: Electrocautery and Retracting Type of Anesthesia: General RN Documented Start/Stop Times: Operation Date: 06/21/24 07:30 Case Time Into Pre-Op 06/21/24 06:02 Out of Pre-Op 06/21/24 07:34 Anesthesia Start 06/21/24 07:43 Into Room 06/21/24 07:43 Procedure Start 06/21/24 08:20 Procedure End 06/21/24 14:20 Anesthesia End 06/21/24 14:28 Out of Room 06/21/24 14:28 Into Recovery 06/21/24 14:30 Procedure Start Time: 08:20 Procedure Stop Time: 14:20 Select all DRAINS/GRAFTS/IMPLANTS that apply: Graft Graft details: Allograft cancellous bone chips and Implanted device Implanted device details: DePuy Augureer prime pedicle screw instrumentation Estimated Blood Loss: 100 cc Specimen collected: No Description of surgery: Preoperative diagnosis: L5-S1 spondylolisthesis, L3-S1 disc degeneration, stenosis with neurogenic claudication Postoperative diagnosis: Same Name of procedures: L3-S1 posterior percutaneous pedicle screw instrumented fusion, prone: ? L3-4 posterior spinal fusion 83589 ? L3-S1 posterior pedicle screw instrumentation 51513 ? L4-5 posterior fusion 28604/51 ? L5-S1 posterior fusion 43751/51 ? Allograft cancellous chips Attending Surgeon: Dr. Jai Miranda Estimated blood loss: 100 mL (total for entire case) Anesthesia: General Complications: None Description of procedure: After the anterior procedure was complete, the patient was then turned supine. The patient was then transferred to Willie table in prone position. Back was prepped and draped in usual fashion. C-arm AP view was then taken. C-arm was positioned in a way that L3 was centralized and superior endplate of was parallel to the beam. Spinous process was centered between the pedicles. Midline was marked with skin marker and lateral borders of the pedicles were also marked. Skin marker was also utilized to lily transversely across the middle of the pedicles at L3. 2 transverse paramedian incisions of 1 inch were placed. The fascia was incised vertically. Finger dissection was utilized to palpate the transverse process and facet joint. Viper Prime screws with towers were inserted and docked onto the transverse processes. This was then slowly moved medially to reach the superior articular process of L3. This was then confirmed on C-arm and then a mallet was utilized to drive the trocar into the pedicle going up to the medial wall of the pedicle on AP view. This was performed both sides. C-arm lateral view confirmed that the tip of the trocar was in the vertebral body, and the screw was advanced into the pedicle and vertebral body. This was repeated similarly at L5 and S1 bilaterally. Screw sizes were 7 x 50 mm at L3 and L5, and 7 x 45 mm at S1 on both sides. 90 mm precontoured titanium 5.5 mm lordotic gillian on both sides were then passed through the screw extensions and reduced down to the screws with the help of [facility] instrumentation system on both sides. AP and lateral view of the C-arm showed good positioning of the screws and cages. Final tightening with the torque screwdriver was then completed. Kemar was utilized to roughen the facet joint at L3-4, L4-5 and L5-S1 on the right side. Cancellous allograft bone chips mixed with bone marrow aspirate were then placed over this decorticated area. Hemostasis was achieved. Closure was done in layers with 0 Vicryls for the fascia, 2-0 Vicryls for the subcutaneous tissue, and Monocryl for the skin. Dermabond was applied. Dressings were applied covered with Tegaderm. The patient was then turned supine onto a hospital bed. The patient was extubated and taken to PACU in stable condition. The patient tolerated the procedure well and no complications occurred. Depuy [place] cage & Viper Prime minimally invasive pedicle screw instrumentation system was utilized in this case. No dural tear was identified intraoperatively. I was present for the entirety of the case and performed the surgery. Tribal Council Member Yesenia Coy PA-C. My physician assistant family teacher was a vital part of this case. They were important in appropriate retraction during the case, and protection of soft tissues during the procedure. Their intimate knowledge of the case and my steps aided in safe and expedient completion of the procedure as well as appropriate position of the patient during the surgery. They were also vital in assisting with closure under my direct supervision. Surgical Findings: See operative note Complications Complications: No
--- NOTE | 2024-06-21 15:25 | POSTOPAN2_ITS ---
Anesthesia Postop Eval I Sum Postop Eval Completion status Anesthesia document: Postop Eval 1 completed: Yes Anesthesia Postop Eval I Summary Anesthesia Postop Eval I Summary: Anesthesia Postop Eval I: Assessment Summary Airway patent Yes 06/21/24 14:36 [email or web address] Spontaneous unlabored Yes 06/21/24 14:36 SILVER [email or web address] respirations Mental status Awake 06/21/24 14:36 [email or web address] nausea No 06/21/24 14:36 SILVER [email or web address] Vomiting No 06/21/24 14:36 [email or web address] Anesthesia Postop Eval I: Fluid Summary Crystalloid volume administer 2,500 06/21/24 14:36 [email or web address] (ml) Colloids volume administered ( ml) Blood Product volume administered (ml) Total IV fluid infused 2,500 06/21/24 14:36 [email or web address] [email or web address] Anesthesia Postop Eval I: Summary Notes Anesthesia Complication No 06/21/24 14:36 [email or web address] Anesthesia Complication Comment: Post-operative progress note Anesthesia: Postop Eval II Evaluation Mental status: Awake and Calm Pain Level: 4 nausea: No Vomiting: No Complications Anesthesia Complication: No
--- NOTE | 2024-06-21 15:25 | PCM.POSTANE2 ---
Anesthesia Postop Eval I Sum Postop Eval Completion status Anesthesia document: Postop Eval 1 completed: Yes Anesthesia Postop Eval I Summary Anesthesia Postop Eval I Summary: Anesthesia Postop Eval I: Assessment Summary Airway patent Yes 06/21/24 14:36 FINANCIAL [email or web address] Spontaneous unlabored Yes 06/21/24 14:36 FINANCIAL [email or web address] respirations Mental status Awake 06/21/24 14:36 FINANCIAL [email or web address] nausea No 06/21/24 14:36 FINANCIAL [email or web address] Vomiting No 06/21/24 14:36 FINANCIAL [email or web address] Anesthesia Postop Eval I: Fluid Summary Crystalloid volume administer 2,500 06/21/24 14:36 FINANCIAL [email or web address] (ml) Colloids volume administered ( ml) Blood Product volume administered (ml) Total IV fluid infused 2,500 06/21/24 14:36 FINANCIAL [email or web address] Anesthesia Postop Eval I: Summary Notes Anesthesia Complication No 06/21/24 14:36 [email or web address] Anesthesia Complication Comment: Post-operative progress note Anesthesia: Postop Eval II Evaluation Mental status: Awake and Calm Pain Level: 4 nausea: No Vomiting: No Complications Anesthesia Complication: No
--- NOTE | 2024-06-21 16:33 | OP.PCM_ITS ---
Operative Report (Standard) Operative Information Date of Procedure: 06/21/24 Pre-Operative Diagnosis: Preoperative diagnosis: L5-S1 spondylolisthesis, L3-S1 disc degeneration, stenosis with neurogenic claudication Post-Operative Diagnosis: Same Surgery/Procedure Performed: L3-S1 oblique lumbar interbody fusion (OLIF), minimally invasive left sided approach, lateral decubitus: ? L3-4 anterolateral spinal fusion 29644 ? L4-5 anterolateral fusion 53608/51 ? L5-S1 anterolateral fusion 69024/51 ? L3-4 insertion of cage 68448 ? L4-5 insertion of cage 75957/51 ? L5-S1 insertion of cage 91337/51 ? Bone graft aspirate left iliac crest separate incision ? Allograft cancellous chips digital cartographer: Yes Saddle Stitcher: Yesenia Coy Tasks completed by printer's assistant: Opening, Closing and Opening & closing Type of Anesthesia: General RN Documented Start/Stop Times: Operation Date: 06/21/24 07:30 Case Time Into Pre-Op 06/21/24 06:02 Out of Pre-Op 06/21/24 07:34 Anesthesia Start 06/21/24 07:43 Into Room 06/21/24 07:43 Procedure Start 06/21/24 08:20 Procedure End 06/21/24 14:20 Anesthesia End 06/21/24 14:28 Out of Room 06/21/24 14:28 Into Recovery 06/21/24 14:30 Out of Recovery 06/21/24 16:15 Into Phase II Recovery 06/21/24 16:17 Procedure Start Time: 08:20 Procedure Stop Time: 12:00 Select all DRAINS/GRAFTS/IMPLANTS that apply: Implanted device Implanted device details: Graft details: Allograft cortical cancellous bone chips, autologous bone marrow aspirate and Implanted device Implanted device details: DePuy cougar lateral lumbar interbody cage?peek Estimated Blood Loss: 100 Specimen collected: No Surgical Findings: See above Complications Complications: No
--- NOTE | 2024-06-21 16:33 | PCM.OPRPT ---
Operative Report (Standard) Operative Information Date of Procedure: 06/21/24 Pre-Operative Diagnosis: Preoperative diagnosis: L5-S1 spondylolisthesis, L3-S1 disc degeneration, stenosis with neurogenic claudication Post-Operative Diagnosis: Same Surgery/Procedure Performed: L3-S1 oblique lumbar interbody fusion (OLIF), minimally invasive left sided approach, lateral decubitus: ? L3-4 anterolateral spinal fusion 08365 ? L4-5 anterolateral fusion 12520/51 ? L5-S1 anterolateral fusion 47803/51 ? L3-4 insertion of cage 07110 ? L4-5 insertion of cage 92813/51 ? L5-S1 insertion of cage 72078/51 ? Bone graft aspirate left iliac crest separate incision ? Allograft cancellous chips table keeper: Yes Account Executive Agribusiness: Yesenia Coy Tasks completed by cutting table operator first: Opening, Closing and Opening & closing Type of Anesthesia: General RN Documented Start/Stop Times: Operation Date: 06/21/24 07:30 Case Time Into Pre-Op 06/21/24 06:02 Out of Pre-Op 06/21/24 07:34 Anesthesia Start 06/21/24 07:43 Into Room 06/21/24 07:43 Procedure Start 06/21/24 08:20 Procedure End 06/21/24 14:20 Anesthesia End 06/21/24 14:28 Out of Room 06/21/24 14:28 Into Recovery 06/21/24 14:30 Out of Recovery 06/21/24 16:15 Into Phase II Recovery 06/21/24 16:17 Procedure Start Time: 08:20 Procedure Stop Time: 12:00 Select all DRAINS/GRAFTS/IMPLANTS that apply: Implanted device Implanted device details: Graft details: Allograft cortical cancellous bone chips, autologous bone marrow aspirate and Implanted device Implanted device details: DePuy cougar lateral lumbar interbody cage?peek Estimated Blood Loss: 100 Specimen collected: No Description of surgery: Co-surgeon: Dr. Miranda and Dr. Johnson HPI: Patient is a 54-year-old male with multilevel lumbar degenerative disc disease evaluated by Dr. Miranda and felt to be appropriate for oblique lumbar interbody fusion. Given the levels involved vascular surgery assistance is requested for exposure to mobilize the abdominal pelvic vessels. Description of procedure: Upon obtaining form consent and verification correct patient procedure site patient taken And was placed on general anesthesia. He was then positioned prepped and draped in usual sterile fashion a time was performed. Oblique incision was then made superior to the left iliac crest and Bovie electrocautery was dissect down through subcutaneous tissue to the level the fascia. The fascia was then incised and the muscles of the abdominal wall split following along the orientation of the fibers with hand-held retractors progressively moved deeper into the wound. Once we entered the retroperitoneal space blunt dissection was dissect down mobilizing the abdominal contents and exposing the psoas muscle. At this point the Syn frame self-retaining retractor was brought into position and blades placed to allow exposure of the lateral aspect of the lumbar spine. Further dissection was performed with Bovie and blunt dissection until the L4- L5 disc was visualized. At this location the Bovie was used to lily the site and we then turned our attention distally to the L5-S1 disc space. The left iliac vein was overlying the disc space and there was a segmental branch at this location. This branch was ligated with silk ties and medium clips and then divided allowing further retraction of the iliac vein towards the midline. Working distally we were confined by the psoas muscle and the bony pelvis and were able to visualize the iliolumbar vein which was more inferior than typical in location. Given its more distal location it was both not possible to ligate this and also not necessary as we able to mobilize the iliac vein sufficiently to obtain our working space. At this point Dr. Miranda performed the L5-S1 discectomy and implant which she will dictate separately in further detail. Next the retractor blades were repositioned and the L4-L5 discectomy was performed again dictated separately. Gelfoam was placed in the disc space and we then dissected up to the L3-L4 disc space with blunt and Bovie dissection until adequate exposure was obtained. At this point Dr. Miranda performed the discectomy and implant which he will dictate in further detail. Finally the retractor blades were positioned and the L4-L5 implant placed which will be dictated in further detail separately. The retroperitoneum was then inspected for hemostasis and the left iliac vein inspected and found to be patent and intact, free of injury. Retractors were then withdrawn and the abdominal contents allowed to return to the [place] position. The superficial wound was then irrigated with saline and the abdominal musculature closed individually with running 1 Vicryl. The superficial wound was then again irrigated with saline and closed with 3-0 Vicryl, 4-0 Monocryl and dry sterile dressing. The patient was then repositioned for posterior approach with Dr. Miranda which he will dictate individually. Surgical Findings: See above Complications Complications: No
[2024-06-21] MEDS: Morphine 2 MG/ML Syringe IV (17:11)
[2024-06-21] MEDS: oxyCODONE 5 MG Tablet PO (18:21)
[2024-06-21] MEDS: Methocarbamol 500 MG Tablet 1000 MG PO ×2 (18:22→21:32)
--- NOTE | 2024-06-21 18:40 | PCM.PN.HOSP ---
Reason for Visit Reason for Visit: Diagnoses Encounter for other preprocedural examination (06/21/24) Subjective Subjective Consult requested by Dr. Zhong for postoperative medical management. Patient just had some generalized discomfort postsurgery. Objective Data Objective Data Vital Signs: Vital Signs Temp Pulse Resp BP Pulse Ox O2 Del Method O2 Flow Rate 36.7 C 61 18 149/85 H 100 Room Air 4 06/21/24 18:31 06/21/24 18:31 06/21/24 18:31 06/21/24 18:31 06/21/24 17:04 06/21/24 18:31 06/21/24 16:01 Oxygen Flow Rate (L/min) 4 Oxygen Delivery Method Room Air Weight: 119.748 kg Body Mass Index (BMI) 37.8 Intake & Output: Intake and Output for Last 24 Hours 06/19/24 06/20/24 06/21/24 23:59 23:59 23:59 Intake Total 2594 / 2594 Output Total 1250 / 1250 Balance 1344 / 1344 Lab / Micro Data Labs: Laboratory Results - last 24 hr 06/21/24 06:28: POC Glucose 73 L Micro: Microbiology 06/11/24 12:58 Swab (Method) Nasal Screen MRSA/MSSA - Final Physical Exam Const alert and no apparent distress HEENT head/scalp atraumatic and moist oral mucous membranes Resp normal respiratory effort, no retractions, no use of accessory muscles and clear to auscultation bilaterally Cardio regular rate, regular rhythm, S1 normal heart sound and S2 normal heart sound GI normal to inspection, nondistended, normoactive bowel sounds, soft to palpation, non-tender and non-distended Extremity normal to inspection and full ROM Neuro moves all extremities Sensorium / Orientation: awake and alert Assessment & Plan Assessment/Plan (1) Spondylolisthesis, lumbar region: PLAN: Plan Hypertension: Continue amlodipine L5-S1 spondylolisthesis, L3-S1 disc degeneration with stenosis with neurogenic claudication: Patient underwent an L3-S1 posterior spinal instrumented fusion. Management per orthopedics. Pain control per orthopedics. VTE prophylaxis per orthopedics. Patient currently medically stable. Please call with questions or concerns. Charges/Coding Visit Charges Inpatient E&M: 49763 Subs Hosp L1
[2024-06-21] MEDS: Gabapentin 100 MG Capsule PO (21:40)
[2024-06-21] MEDS: traZODone 100 MG Tablet PO (21:40)
[2024-06-21] MEDS: Senna/Docusate Sodium 1 Tablet 2 TABLET PO (21:40)
[2024-06-22] VITALS (7 sets, daily range): BP systolic 122–140; BP diastolic 67–82; PULSE 58–66; RESP 16–18; TEMP 36.4–36.9; O2SAT 94–100
[2024-06-22] MEDS: oxyCODONE 5 MG Tablet PO ×4 (01:23→17:32)
[2024-06-22] MEDS: Cefazolin 2 GM in Syringe 10 ML IV (04:20)
[2024-06-22 05:39] LABS: Hematocrit 39.7 % (40-54); Hemoglobin 13.2 g/dL (13.0-16.5); Mean Corp Hgb Conc 33.2 g/dL (32-36); Mean Corpuscular Hgb 29.4 pg (27.0-32.0); Mean Corpuscular Volume 88.4 fL (80-94); Mean Platelet Vol. 10.7 fl (6.2-12.0); Platelet Count 194 K/mm3 (150-450); Red Blood Count 4.49 M/mm3 (4.6-6.2); White Blood Count 10.4 K/mm3 (4.4-11.0)
[2024-06-22 05:55] LABS: Scan Indicated on CBC? Y/N NO
[2024-06-22 06:00] LABS: Anion Gap 8 (5-15); BUN 14 mg/dL (7-18); BUN/Creat Ratio 13.1 RATIO (10-20); Calcium,Total 8.7 mg/dL (8.5-10.1); Chloride 107 mmol/L (98-107); Creatinine, Serum 1.07 mg/dL (0.70-1.30); EST Glomerular Filtration Rate 76 mL/min (>60); Est Glom Filt Rate - Afr Amer 92 mL/min (>60); Estimated Creatinine Clearance 99.98 ml/min; Glucose 126 mg/dL (74-106); Sodium Level 139 mmol/L (136-145)
[2024-06-22] MEDS: Acetaminophen 500 MG Tablet 1000 MG PO ×2 (06:03→13:49)
--- NOTE | 2024-06-22 08:00 | RAD_ITS ---
PROCEDURE: LUMBAR SPINE 2 OR 3 VIEWS REASON FOR EXAM: Status post lumbar fusion. TECHNIQUE: 2 view(s) of the lumbar spine COMPARISON: Comparison is made with prior intraoperative imaging dated June 21, 2024. FINDINGS: The patient is status post intrapedicular screw fixation at the L3 level as well as at the L5-S1 level with intrapedicular screw fixation and gillian fixation device. Prosthetic discs are seen at the L3-L4, L4-L5 and L5-S1 levels. RAD/Lumbar Spine 2 or 3 Views IMPRESSION: Status post multilevel fusion with prosthetic disc. Reading Location: [facility]
[2024-06-22] MEDS: Ensure Surgery 237 ML LIQUID PO (08:41)
[2024-06-22] MEDS: amLODIPine 5 MG Tablet PO (08:42)
[2024-06-22] MEDS: Gabapentin 100 MG Capsule PO (08:42)
[2024-06-22] MEDS: Meloxicam 15 MG Tablet PO (08:42)
[2024-06-22] MEDS: Methocarbamol 500 MG Tablet 1000 MG PO ×3 (08:43→17:17)
[2024-06-22] MEDS: Pantoprazole Sodium 40 MG Tablet PO (08:43)
[2024-06-22] MEDS: Metoprolol(XL)Succ 25 MG Tablet PO (08:44)
[2024-06-22] MEDS: Senna/Docusate Sodium 1 Tablet 2 TABLET PO (08:44)
--- NOTE | 2024-06-22 12:16 | CASEMGMT ---
EGO ADAMS Assessment: Face to Face with pt for initial transition planning/care coordination assessment. GEO ADAMS introduced self and role at [facility], pt voices understanding and consents to assessment. Pt is A&O x4 and answers all questions appropriately at this time. Pt just walked in the [place]unkett with SILVER CLEANER. Pt sitting up in chair in no distress. Care providers, pharmacy, and demographics verified/updated. Admitting Dx: 360 lumbar fusion Strata Score: 2 PCP:Jaci Specialists:sami Miranda Pharmacy: [facility] Retail Insurance: [employer] A Prescription Benefit: yes LNOK: Irene Uribe, Living Arrangements: Pt lives with in a split level home with 4+2+1 steps to enter with a rail and then 5 steps for FFSU. Pt reports he is typically I in ADLs and IADLs. Pt denies concerns at home. Transportation: Pt drives self and denies concerns with transportation. Pt to transport pt until he can drive again. DME:lift chair, ww, cane, shower chair HHC/SNF: Denies hx of Pt states no concerns with going home at time of dc. Pt states no further concerns/needs. CM to follow. Advised pt to ask CM if any further questions/concerns/needs arise, voices understanding. Pt Goal:Home Plan: Home Danna GUARDADO CM
--- NOTE | 2024-06-22 15:43 | PCM.PN.ORT ---
Subjective Subjective Patient is postop day 1 L3-S1 fusion. Patient is doing relatively well after surgery. Says that he does have left-sided groin pain as well as back pain when he moves. When I had seen him this morning the patient had not yet moved and had only urinated in bed with a urinal. PT/OT recommend a home walking program and then outpatient physical therapy as typically ordered. The patient has passed gas and has tolerated a solid meal. Patient ready for home discharge. Seen with Dr. Miranda. Objective Data Objective Data Vital Signs: Vital Signs Temp Pulse Resp BP Pulse Ox O2 Del Method O2 Flow Rate 97.7 F L 66 17 124/69 H 100 Room Air 4 06/22/24 11:49 06/22/24 11:49 06/22/24 11:49 06/22/24 11:49 06/22/24 11:49 06/22/24 11:49 06/21/24 16:01 Oxygen Flow Rate (L/min) 4 Oxygen Delivery Method Room Air Weight: 264 lb Body Mass Index (BMI) 37.8 Intake & Output: Intake and Output for Last 24 Hours 06/20/24 06/21/24 06/22/24 23:59 23:59 23:59 Intake Total 2614 / 2614 570 / 570 Output Total 1250 / 1550 1000 / 1000 Balance 1364 / 1064 -430 / -430 Lab / Micro Data 06/22/24 05:30 06/22/24 05:30 Labs: Laboratory Results - last 24 hr 06/22/24 05:30: WBC 10.4, RBC 4.49 L, Hgb 13.2, Hct 39.7 L, MCV 88.4, MCH 29.4, MCHC 33.2, RDW Std Deviation 42.0, RDW Coeff of Cristian 13.0, Plt Count 194, MPV 10.7, Sodium 139, Potassium 4.0, Chloride 107, Carbon Dioxide 24.0, Anion Gap 8, BUN 14, Creatinine 1.07, Estim Creat Clear Calc 99.98, Est GFR (MDRD) Af Amer 92, Est GFR (MDRD) Non-Af 76, BUN/Creatinine Ratio 13.1, Glucose 126 H, Calcium 8.7 Micro: Microbiology 06/11/24 12:58 Swab (Method) Nasal Screen MRSA/MSSA - Final Radiography Diagnostic Testing: Radiology Impression Lumbar Spine X-Ray 06/21/24 08:03 IMPRESSION: As above Reading Location: [facility] Lumbar Spine X-Ray 06/22/24 08:00 IMPRESSION: Status post multilevel fusion with prosthetic disc. Reading Location: [id number] Physical Exam Narrative Neurological exam of the lower extremities shows 5x5 power. Increased pain with left hip flexion and knee extension while in bed. Normal sensations across all dermatomes. Physical examination of the back and belly shows Tegaderm and gauze dry and intact over incisions. Const alert, oriented x3 and no apparent distress Assessment & Plan Assessment/Plan (1) Status post lumbar spinal fusion: PLAN: Plan Patient is postop day 1 L3-S1 fusion. When I had seen the patient the patient had not done much for himself at that point and had not been up out of bed. Really encouraged the patient to get out of bed is much as possible today and walk with therapy is much as he could. Patient is cleared for home discharge by PT/OT. Spoke with classification case manager who said that therapy suggested a home walking program and then outpatient physical therapy when our postop is typically begin that. Patient has passed gas and has tolerated a solid meal. X-rays done today look good. Home-going meds include oxycodone, acetaminophen, methocarbamol, meloxicam, senna. Reviewed restrictions of no bending, lifting, twisting. Discharge is signed. He will follow-up in the office in 2 weeks. Patient is in agreement.
--- NOTE | 2024-06-22 17:15 | PCM.PN.HOSP ---
Reason for Visit Reason for Visit: Diagnoses Spondylolisthesis, lumbar region (06/21/24) Encounter for other preprocedural examination (06/21/24) Arthrodesis status (06/21/24) Subjective Subjective Patient was seen and examined today, his blood pressure appears to be under adequate control at this time. Objective Data Objective Data Vital Signs: Vital Signs Temp Pulse Resp BP Pulse Ox O2 Del Method O2 Flow Rate 98.5 F 66 18 125/67 H 94 Room Air 4 06/22/24 16:48 06/22/24 16:48 06/22/24 16:48 06/22/24 16:48 06/22/24 16:48 06/22/24 16:48 06/21/24 16:01 Oxygen Flow Rate (L/min) 4 Oxygen Delivery Method Room Air Weight: 119.748 kg Body Mass Index (BMI) 37.8 Intake & Output: Intake and Output for Last 24 Hours 06/20/24 06/21/24 06/22/24 23:59 23:59 23:59 Intake Total 2614 / 2614 570 / 570 Output Total 1250 / 1550 1000 / 1000 Balance 1364 / 1064 -430 / -430 Lab / Micro Data 06/22/24 05:30 06/22/24 05:30 Labs: Laboratory Results - last 24 hr 06/22/24 05:30: WBC 10.4, RBC 4.49 L, Hgb 13.2, Hct 39.7 L, MCV 88.4, MCH 29.4, MCHC 33.2, RDW Std Deviation 42.0, RDW Coeff of Cristian 13.0, Plt Count 194, MPV 10.7, Sodium 139, Potassium 4.0, Chloride 107, Carbon Dioxide 24.0, Anion Gap 8, BUN 14, Creatinine 1.07, Estim Creat Clear Calc 99.98, Est GFR (MDRD) Af Amer 92, Est GFR (MDRD) Non-Af 76, BUN/Creatinine Ratio 13.1, Glucose 126 H, Calcium 8.7 Micro: Microbiology 06/11/24 12:58 Swab (Method) Nasal Screen MRSA/MSSA - Final Radiography Diagnostic Testing: Radiology Impression Lumbar Spine X-Ray 06/21/24 08:03 IMPRESSION: As above Reading Location: [facility] Lumbar Spine X-Ray 06/22/24 08:00 IMPRESSION: Status post multilevel fusion with prosthetic disc. Reading Location: [id number] Physical Exam Const alert, oriented x3, no apparent distress, average body habitus and healthy appearing General Appearance: cooperative, well kempt and well developed Orientation / Consciousness: awake, oriented to person, oriented to place and oriented to time HEENT normocephalic, head/scalp atraumatic and moist oral mucous membranes Eyes PERRL, EOMs intact bilaterally and conjunctivae normal Neck supple, no JVD, thyroid normal and no carotid bruits General: trachea midline Resp normal respiratory effort, no retractions, no use of accessory muscles and clear to auscultation bilaterally Auscultation: Negative for rales, rhonchi or wheezes Cardio regular rate, regular rhythm, S1 normal heart sound, S2 normal heart sound, no murmurs, no rub and no gallops GI normal to inspection, nondistended, normoactive bowel sounds, soft to palpation, non-tender and non-distended Extremity no clubbing, cyanosis or edema Skin no rashes or lesions noted General Skin Exam: no breakdown Neuro oriented x3, CN's II-XII intact bilaterally, no focal motor deficits and no sensory deficits noted Sensorium / Orientation: awake and alert Speech: speech normal Psych affect normal Assessment & Plan Assessment/Plan (1) Spondylolisthesis, lumbar region: PLAN: Plan 1. Essential hypertension-patient will remain on his present medication, again blood pressure appears to be adequately controlled #2 GERD-patient is on a PPI #3 degenerative disc disease of the lumbar spine-status post multilevel lumbar fusion, PT and OT are seeing patient, spinal surgery is managing postop care Total clinical time spent by myself addressing the patient's medical issues, reviewing all of his data, and collaborating with patient's care team: 35 minutes Charges/Coding Visit Charges Inpatient E&M: 25816 Subs Hosp L2
== END 2024-06-22 19:40 | disposition home or self-care (01) | DRG 428 ==
PROVIDERS: Student in an Organized Health Care Education/Training Program; Admitting Provider Orthopaedic Surgery Orthopaedic Surgery of the Spine; PCP Family Medicine; Referring Provider Orthopaedic Surgery Orthopaedic Surgery of the Spine; Visit Provider Orthopaedic Surgery Orthopaedic Surgery of the Spine
PROC: 0SG13AJ Fusion of 2 or more Lumbar Vertebral Joints with Interbody Fusion Device, Posterior Approach, Anterior Column, Percutaneous Approach (ICD-10-PCS; principal; 2024-06-21 07:00)
DX: M48.062 Spinal stenosis, lumbar region with neurogenic claudication (principal); E11.9 Type 2 diabetes mellitus without complications; I10 Essential (primary) hypertension; E66.9 Obesity, unspecified; M48.07 Spinal stenosis, lumbosacral region; K21.9 Gastro-esophageal reflux disease without esophagitis; G47.33 Obstructive sleep apnea (adult) (pediatric); F10.90 Alcohol use, unspecified, uncomplicated; I83.811 Varicose veins of right lower extremity with pain; F17.200 Nicotine dependence, unspecified, uncomplicated; M43.16 Spondylolisthesis, lumbar region; M51.370 Other intervertebral disc degeneration, lumbosacral region with discogenic back pain only; M51.360 Other intervertebral disc degeneration, lumbar region with discogenic back pain only; Z79.82 Long term (current) use of aspirin; Z79.2 Long term (current) use of antibiotics; Z79.899 Other long term (current) drug therapy; Z99.89 Dependence on other enabling machines and devices; Z96.653 Presence of artificial knee joint, bilateral; Z98.84 Bariatric surgery status; Z90.49 Acquired absence of other specified parts of digestive tract; G89.18 Other acute postprocedural pain; Z68.37 Body mass index [BMI] 37.0-37.9, adult
CPT/HCPCS: 36415; 72100; 76000; 80048; 82962; 83735; 85027; 86703; 86706; 86708; 86803; 86850; 86900; 86901; 87081; 94668; 97162; 97166; 99252; C1713; G0463; J2405

== ENCOUNTER → 2024-07-06 | Outpatient (CLI) | payer OTHER, SELFPAY ==
--- NOTE | 2024-07-06 11:13 | RAD_ITS ---
EXAM: XR Lumbosacral Spine, 2 or 3 Views CLINICAL INDICATION: S/P FUSION TECHNIQUE: Frontal and lateral views of the lumbar spine and sacrum. COMPARISON: No relevant prior studies available. FINDINGS: VERTEBRAE: Unremarkable. No acute fracture. Normal alignment. SACRUM/COCCYX: Unremarkable as visualized. No acute fracture. DISC SPACES: Status post posterior fusion L3-S1 with disc spacers. Intact hardware. Anatomic position. SOFT TISSUES: Unremarkable. RAD/Lumbar Spine 2 or 3 Views IMPRESSION: Postoperative changes as above. Reading Location: [facility]
== END | disposition home or self-care (01) ==
LOC: MTRAD 11:13
PROVIDERS: PCP Family Medicine; Referring Provider Student in an Organized Health Care Education/Training Program; Visit Provider Student in an Organized Health Care Education/Training Program
DX: Z98.1 Arthrodesis status (principal)
CPT/HCPCS: 72100

== ENCOUNTER → 2024-07-15 | Outpatient (CLI) | payer OTHER, SELFPAY ==
--- NOTE | 2024-07-15 10:47 | VDLE_ITS ---
Reason For Study Reason For Study: Bilateral leg pain RIGHT LEFT GSV is normal. GSV is normal. CFV is compressible, spontaneous, phasic, competent CFV is compressible, spontaneous, phasic, competent, and demonstrates normal augmentation. and demonstrates normal augmentation. FV is compressible, spontaneous, phasic, competent FV is compressible, spontaneous, phasic, competent and demonstrates normal augmentation. and demonstrates normal augmentation. POP V is compressible, spontaneous, phasic, competent POP V is compressible, spontaneous, phasic, competent and demonstrates normal augmentation. and demonstrates normal augmentation. T/P Trunk is compressible. T/P Trunk is compressible. PTV is compressible. PTV is compressible. RT PerV is compressible. LT PerV is compressible. Procedure This is a venous duplex using B-mode, color flow and spectral Doppler. Exam performed in department. A preliminary report was called and/or faxed to [facility]. VL/Venous Duplex US - Mo Extrem Interpretation Summary Deep veins of the lower extremities are bilaterally patent and compressible seg mentally. There is no evidence of deep vein thrombosis on either side. Valvular competence appears intact within the p roximal deep venous systems bilaterally. The great saphenous veins appear bilaterally patent and compressible segmentall y. Ordering Physician: Eden Sorto Referring Physician: Renzo Beatty Performed By: dArienne Marshall RVT
== END | disposition home or self-care (01) ==
LOC: CVS 10:47
PROVIDERS: PCP Family Medicine; Referring Provider Nurse Practitioner Family; Visit Provider Nurse Practitioner Family
DX: M79.661 Pain in right lower leg (principal); M79.662 Pain in left lower leg; Z86.718 Personal history of other venous thrombosis and embolism
CPT/HCPCS: 93970

== ENCOUNTER → 2024-08-03 | Outpatient (CLI) | payer OTHER, SELFPAY ==
--- NOTE | 2024-08-03 10:44 | RAD_ITS ---
PROCEDURE: Lumbar spine radiographs, three views 08/03/2024 REASON FOR EXAM: PAIN TECHNIQUE: Three views of the lumbar spine were obtained. COMPARISON: 07/06/2024 FINDINGS: Three views of the lumbar spine were obtained. Bones are osteopenic. Included portions of the pelvis and proximal femurs are intact. Intact intrapedicular screws of L3, L5, and S1, with posterior connecting fusion rods. No acute lumbar vertebral body fracture or focal subluxation. Similar multilevel degenerative disc and facet disease in the lumbar spine. There are interbody spacer devices at L3-4 through L5-S1. There is slightly more anterior position of the interbody spacer device at the L5-S1 level compared to 06/22 24. RAD/Lumbar Spine 2 or 3 Views IMPRESSION: Osteopenia. No acute lumbar vertebral body fracture. Grossly intact intrapedicular screws and posterior fusion rods from L3-S1. Similar multilevel degenerative disc and facet disease in the lumbar spine. The interbody spacer device at the anterior margin of the L5-S1 level appears m ore anteriorly positioned when compared to 06/22/2024. Reading Location: [facility]
== END | disposition home or self-care (01) ==
LOC: MTRAD 10:44
PROVIDERS: PCP Family Medicine; Referring Provider Orthopaedic Surgery Orthopaedic Surgery of the Spine; Visit Provider Orthopaedic Surgery Orthopaedic Surgery of the Spine
DX: Z98.1 Arthrodesis status (principal)
CPT/HCPCS: 72100

== ENCOUNTER → 2024-09-21 | Outpatient (CLI) | payer OTHER, SELFPAY ==
--- NOTE | 2024-09-21 10:14 | RAD_ITS ---
PROCEDURE: LUMBAR SPINE 2 OR 3 VIEWS 09/21/2024 REASON FOR EXAM: S/P LUMBAR FUSION TECHNIQUE: 2 view(s) of the lumbar spine COMPARISON: 06/22/2024, 07/06/2024 and 08/03/2024 FINDINGS: From 06/22/2024 to 07/06/2024 the intervertebral disc spacer at L5-S1 migrated and was mostly extruded anteriorly. Currently the appearance of this mostly extruded intervertebral disc spacer is not significantly changed in its position from the most recent study of 08/03/2024. The disc spacing at L5-S1 appears decreased compared to that of 06/22/2024. There is again note of intervertebral disc spacers L3-4 and L4-5, left lateral anchor screws L3 and L5 and bilateral posterior fusion with transpedicular screws L3, L5 and S1 which appear intact and anatomic without fracture. There is again note of L1-2 spondylosis/discogenic change. RAD/Lumbar Spine 2 or 3 Views IMPRESSION: See above for details. Reading Location: [id number]
== END | disposition home or self-care (01) ==
LOC: MTRAD 10:14
PROVIDERS: PCP Family Medicine; Referring Provider Orthopaedic Surgery Orthopaedic Surgery of the Spine; Visit Provider Orthopaedic Surgery Orthopaedic Surgery of the Spine
DX: Z98.1 Arthrodesis status (principal)
CPT/HCPCS: 72100

== ENCOUNTER 2024-10-11 11:00 | Outpatient (RCR) | payer OTHER, SELFPAY ==
--- NOTE | 2024-07-14 10:36 | HP.PTEVAL_ITS ---
Patient's Visit Information Visit Information Visit Information: MIRIAM BURTON is a 54 year old M referred to Physical Therapy by Dr. Jai Miranda MD with a diagnosis of Lumbar fusion, DOS: 06/21/24. Date of Evaluation: 07/12/24 Physical Therapist: Denzel Reyes DPT Visit Plan Frequency: 2x /Week Duration: 6 Weeks Plan: 1) neutral spine core activitation, progressing to dynamic stability. 2) walking program 3) functional LE strengthening 4) may use ice and light manual to paraspinals to reduce symptoms spasms. Subjective Subjective: Pt. is here today for his initial evaluation with diagnosis of his initial evaluation with diagnosis of lumbar fusion L3-S1. Pt. arrives with reports overall doing better, but is still having some pain at his anterior L flank and in B hips. Pt. reports increased pain with getting up and down from sitting. No N/T noted in either LE. Pt. reports no distal LE pain. Pt. is wearing a bone stimulator and is wear for the next 6-8 weeks. Pt. reports overall pleased thus far. He is to refrain from bending, twisting and lifting. Pt. is sleeping well. He is very apprehensive with movements. Pt. is hopeful to reduce symptoms and get back to all recreational activities without limitations. Pt. does report a hard feeling at his L anterior flank, but is unsure if this is new or not. Pain Lumbar spine: Pain Intensity (Out of 10): 4 Pain Intensity Range: 2 and 7 L flank: Pain Intensity (Out of 10): 1 Pain Intensity Range: 0 and 4 Objective Objective: POSTURE: Pt. has decent posture in stance. Pt. does not have a major shift noted. PALPATION: Pt. has good healing incisions, no signs of infection. Pt. does have a more firm tissue close to his anterior incision, possible scar tissue, not sure. Pt reports that it is a little bit sore. NEURO: normal throughout. ROM: LUMABR SPINE: Pt. has very limited ROM throughout lumbar spine. Pt. has tightness in B HS, but has tight B hip ER ROM as well. MMT: BLE: pt. has 5/5 strength in distal LEs. No myotomal weakness noted. Pt. has 4/5 B hip strength throughout. Pt. has decent TA contraction in supine. Pt. had no pain with LE strength testing. GAIT: Pt. has marked guarded posture with gait, limited arm swing. Pt. does not have increased pain with walking. STAIRS: Pt. has normal reciprocal pattern with use of B HR. Balance/Special Test Scores Oswestry Low Back Score: 16 Goals Goal 1:: LTG: Pt. to be I with HEP. Goal Time Frame: 4-6 Weeks Goal 2:: STG: Pt. to sleep without increase in symptoms. Goal Time Frame: 2-4 Weeks Goal 3:: STG: Pt. to have no issues with sit to stand movements. Goal Time Frame: 2-4 Weeks Goal 4:: LTG: to have full strength of BLEs without increase in symptoms. Goal Time Frame: 6-8 Weeks Goal 5:: LTG: Pt. to ambulate unlimited distances without increase in lumbar spine pain. Goal Time Frame: 4-6 Weeks Goal 6:: LTG: Pt. to report no lumbar spine pain with all functional mobility. Goal Time Frame: 6-8 Weeks Rehabilitation Potential Physical Therapy Diagnosis: Pt. has signs and symptoms consistent with lumbar fusion with DOS: 06/21/24. Pt. has marked hypomobility, weakness, increased pain and difficulty with functional mobility. Pt. would benefit from PT to address the above limitations progressing back to all previous levels of function. Rehabilitation Potential: Excellent Anticipated Interventions Patient/Client Instruction: Educate patient on: Condition, Plan of Care, Risk Factors and Benefits of Fitness Program For the Purpose of:: To foster healthy habits, To improve decision making, To facilitate caregiver knowledge, To improve self management, To prevent re-injury and To improve ability to perform tasks related to life management Therapeutic Exercise to Include: Strength training, Coordination, Body mechanics, Postural training, Flexibilty training, Passive ROM, Active ROM and Dynamic Lumbar Stabilization For the Purpose of:: To decrease pain, To increase ROM, To improve nutrient delivery to tissue, To increase oxygenation perfusion, To improve muscle performance and motor function, To improve ability to perform ADL's, To improve health of tissue, To decrease soft tissue restriction, To increase flexibility/ROM and To improve endurance Manual Therapy Techniques to Include: Soft tissue mobilization For the Purpose of:: To decrease pain, To increase ROM, To improve nutrient delivery to tissue and To increase oxygenation perfusion Cryotherapy (ice pack, ice massage): Yes For the Purpose of:: To decrease pain, To decrease swelling/inflammation, To increase ROM, To improve nutrient delivery to tissue and To increase oxygenation perfusion Text: Thank you for the opportunity to evaluate your patient. For Medicare and Medicare HMO plans, please review the plan of care and approve it. It will need to be FAXED BACK to us at [phone] for Medicare purposes. For Medicare only, by signing this I certify the plan of care. Please let me know if there are questions or concerns regarding this plan of care. Physician Signat ure: Date:
--- NOTE | 2024-08-12 07:20 | HP.PTREVAL_ITS ---
Re-Evaluation Intro: Dr. Jai Miranda MD, It has been my pleasure to treat MIRIAM BURTON over the last 8 visits for Lumbar fusion, DOS: 06/21/24. Please see the progress note below for an update on the physical therapy plan of care! Subjective Subjective: Pt. reports overall doing much better than he was. He still has some issues with lifting and having some good/bad days. Objective Objective/Function: ROM: lumbar spine: flexion mod loss fearful, ext mod loss, SB min loss bilat, rotation mod loss fearful. pt. has no distal symptoms. MMT: distal BLEs 5/5 throughout; R hip: flexion 4/5, abd 4/5, ext 4/5. L hip: fl exion 4/5, abd 4/5, ext 4/5. Core poor+. GAIT: Pt. slight decrease in B arm swing, normal step length. STAIRS: Pt. is able to complete with 2 HR with reciprocal pattern no pain. Pt. is overall doing well. He still feels week in his BLEs and still has days where he has increased pain. Pt. reports having good days and bad days, but is having more and more good days. I would recommend that he continue to work on strengthening allow for increased stability with all daily activities. Plan Plan Plan: 1) neutral spine core activitation, progressing to dynamic stability. Progress hip and core strengthening. 3) functional LE strengthening 4) may use ice and light manual to paraspinals to reduce symptoms spasms. Balance/Gait/Functional tests Balance/Special Test Scores Oswestry Low Back Score: 16 Goals Goals Goal 1:: LTG: Pt. to be I with HEP. Goal Time Frame: 4-6 Weeks Goal Progress: Progressing Goal 2:: STG: Pt. to sleep without increase in symptoms. Goal Time Frame: 2-4 Weeks Goal Progress: Progressing Goal 3:: STG: Pt. to have no issues with sit to stand movements. Goal Time Frame: 2-4 Weeks Goal Progress: Progressing Goal 4:: LTG: to have full strength of BLEs without increase in symptoms. Goal Time Frame: 6-8 Weeks Goal Progress: Progressing Goal 5:: LTG: Pt. to ambulate unlimited distances without increase in lumbar spine pain. Goal Time Frame: 4-6 Weeks Goal Progress: Progressing Goal 6:: LTG: Pt. to report no lumbar spine pain with all functional mobility. Goal Time Frame: 6-8 Weeks Goal Progress: Progressing Anticipated Interventions Anticipated Interventions Patient/Client Instruction: Educate patient on: Condition, Plan of Care, Risk Factors and Benefits of Fitness Program For the Purpose of:: To foster healthy habits, To improve decision making, To facilitate caregiver knowledge, To improve self management, To prevent re-injury and To improve ability to perform tasks related to life management Therapeutic Exercise to Include: Strength training, Coordination, Body mechanics, Postural training, Flexibilty training, Passive ROM, Active ROM and Dynamic Lumbar Stabilization For the Purpose of:: To decrease pain, To increase ROM, To improve nutrient delivery to tissue, To increase oxygenation perfusion, To improve muscle performance and motor function, To improve ability to perform ADL's, To improve health of tissue, To decrease soft tissue restriction, To increase flex ibility/ROM and To improve endurance Manual Therapy Techniques to Include: Soft tissue mobilization For the Purpose of:: To decrease pain, To increase ROM, To improve nutrient delivery to tissue and To increase oxygenation perfusion Cryotherapy (ice pack, ice massage): Yes For the Purpose of:: To decrease pain, To decrease swelling/inflammation, To increase ROM, To improve nutrient delivery to tissue and To increase oxygenation perfusion Re-Evaluation Ending Re-evaluation ending: Please do not hesitate to contact me at [phone] by phone or if you have questions or concerns regarding this new plan of care! Sincerely, Denzel Reyes DPT
--- NOTE | 2024-10-11 11:36 | HP.PTDCSUM ---
Discharge Summary D/C summary: It has been my pleasure to treat MIRIAM BURTON referred by Dr. Jai Miranda MD, with the diagnosis of Lumbar fusion, DOS: 06/21/24 for a total of 21 visit(s). Discharge Date: 10/11/24 Please see the following information for a summary of their discharge status. Subjective Subjective: Pt. reports being 80% better overall. Pt. reports sleeping well, but still has some tenderness at middle of his back. Pt. reports being 80% better overall. Pt. is HEP compliant. Pain Lumbar spine: Pain Intensity (Out of 10): 0 L flank: Pain Intensity (Out of 10): 0 Overall Improvement % Improvement: 80 Objective Objective/Function: ROM: Lumbar: flexion full NE, ext min loss tightness, SB min los bilat, rotation full motion NE. Pt. has normal HS length bilaterally. Pt. has good B hip ROM. MMT: full without increase in symptoms. No myotomal weakness noted. Fair core strength. GAIT: normal without issues, normal posture, no issues. STAIRS: normal without weakness, no increase in symptoms. Goals Goal 1:: LTG: Pt. to be I with HEP. Goal Progress: Goal Met Goal 2:: STG: Pt. to sleep without increase in symptoms. Goal Progress: Goal Met Goal 3:: STG: Pt. to have no issues with sit to stand movements. Goal Progress: Goal Met Goal 4:: LTG: to have full strength of BLEs without increase in symptoms. Goal Progress: Goal Met Goal 5:: LTG: Pt. to ambulate unlimited distances without increase in lumbar spine pain. Goal Progress: Goal Met Goal 6:: LTG: Pt. to report no lumbar spine pain with all functional mobility. Goal Progress: Goal Met Plan Plan: Pt. to be DC from PT at this point in time. Pt. has met all goals. D/C Information d/c sentence: If there are questions or concerns regarding this patient's physical therapy, please feel free to call me at [phone]. Thank you for the referral of this patient. Sincerely, Denzel Brenner Sipos, DPT Balance/Gait/Functional tests Balance/Special Test Scores Oswestry Low Back Score: 0 Improvement % Improvement: 80
== END 2024-10-11 13:35 | disposition home or self-care (01) ==
LOC: PT 11:00
PROVIDERS: PCP Family Medicine; Referring Provider Orthopaedic Surgery Orthopaedic Surgery of the Spine; Visit Provider Orthopaedic Surgery Orthopaedic Surgery of the Spine
DX: Z98.1 Arthrodesis status (principal)
CPT/HCPCS: 97110; 97161; 97530

== ENCOUNTER → 2024-12-21 | Outpatient (CLI) | payer OTHER, SELFPAY ==
--- NOTE | 2024-12-21 14:10 | RAD_ITS ---
PROCEDURE: L/S SPINE MIN 4 VIEWS 12/21/2024 REASON FOR EXAM: POST OP TECHNIQUE: L/S SPINE MIN 4 VIEWS COMPARISON: 09/21/2024 FINDINGS: Postoperative changes of posterior instrumented fusion with disc spacers from L3-S1. Hardware appears intact and in stable alignment. No subluxation is appreciated. The L5-S1 disc spacer appears anteriorly displaced/migrated, unchanged from multiple prior exams. Mild multilevel spondylotic changes with varying degrees of disc space narrowing, endplate sclerosis and anterior osteophytosis, and hypertrophic facet arthropathy. Unremarkable soft tissues. RAD/L/S Spine Min 4 Views IMPRESSION: No acute findings. Chronic degenerative and postoperative changes as described . Reading Location: [id number]
== END | disposition home or self-care (01) ==
LOC: RAD 14:02
PROVIDERS: PCP Family Medicine; Referring Provider Orthopaedic Surgery Orthopaedic Surgery of the Spine; Visit Provider Orthopaedic Surgery Orthopaedic Surgery of the Spine
DX: M54.9 Dorsalgia, unspecified (principal)
CPT/HCPCS: 72110

== ENCOUNTER → 2025-01-27 | Outpatient (CLI) | payer OTHER, SELFPAY ==
[2025-01-27 08:02] LABS: Hematocrit 46.5 % (40-54); Hemoglobin 15.1 g/dL (13.0-16.5); Immature Granulocytes Count 0.020 X10^3/uL (0.0-0.0); Mean Corp Hgb Conc 32.5 g/dL (32-36); Mean Corpuscular Volume 86.3 fL (80-94); Mean Platelet Vol. 11.6 fl (6.2-12.0); NRBC Flagged by Analyzer 0 % (0-5); Platelet Count 233 K/mm3 (150-450); RBC Distribution Width CV 13.7 % (11.6-14.6); RBC Distribution Width SD 42.9 fl (35.1-43.9); Red Blood Count 5.39 M/mm3 (4.6-6.2); White Blood Count 6.6 K/mm3 (4.4-11.0)
[2025-01-27 08:06] LABS: AST(SGOT) 16 U/L (<=37); Alanine Aminotransfer ALT/SGPT 14 U/L (<=46); Albumin, Serum 4.0 g/dL (3.5-5.0); Alkaline Phosphatase 59 U/L (40-129); Anion Gap 11 (5-15); BUN 18 mg/dL (4-19); BUN/Creat Ratio 18.6 RATIO (10-20); Calcium,Total 9.0 mg/dL (7.6-11.0); Carbon Dioxide 25.5 mmol/L (21.0-32.0); Chloride 106 mmol/L (98-108); Globulin 2.2 g/dL (2.2-4.2); Glucose 93 mg/dL (70-99); Potassium 4.2 mmol/L (3.3-5.1)
[2025-01-27 08:45] LABS: CRP < 3.00 mg/L (0.0-3.0); Magnesium 2.2 mg/dL (1.5-2.2); Vitamin B12 > 4000 pg/mL (180-914); Vitamin D,25 Hydroxy 93.3 ng/mL (30-100)
== END | disposition home or self-care (01) ==
LOC: LAB 06:00
PROVIDERS: PCP Family Medicine; Referring Provider Family Medicine; Visit Provider Family Medicine
DX: R19.4 Change in bowel habit (principal); E83.42 Hypomagnesemia; R19.7 Diarrhea, unspecified; R53.83 Other fatigue
CPT/HCPCS: 36415; 80053; 82306; 82607; 83735; 84439; 84443; 85025; 85652; 86140

== ENCOUNTER → 2025-01-28 | Outpatient (CLI) | payer OTHER, SELFPAY | END | disposition home or self-care (01) | LOC: LABSPEC 12:18 | PROVIDERS: PCP Family Medicine; Referring Provider Family Medicine; Visit Provider Family Medicine | DX: R19.7 Diarrhea, unspecified (principal) | CPT/HCPCS: 83630; 87177; 87209; 87493; 87506 ==

== ENCOUNTER → 2025-04-13 | Outpatient (CLI) | payer OTHER, SELFPAY ==
--- NOTE | 2025-04-13 13:00 | RAD_ITS ---
PROCEDURE: L/S SPINE MIN 4 VIEWS 04/13/2025 REASON FOR EXAM: BACK PAIN TECHNIQUE: Procedure Code: [id number] Modality: DX Procedure: L/S SPINE MIN 4 VIEWS COMPARISON: December 21, 2024 FINDINGS: There is dextrocurvature of the lumbar region with less than 10 degrees of variance. There is hardware fusion from L3-S1, unchanged. There is loss of disc height from T12-L2. Mineralization is normal. There is no visible atherosclerosis. RAD/L/S Spine Min 4 Views IMPRESSION: Hardware in position, unchanged. Reading Location: [facility]
--- OUTSIDE RECORDS SUMMARY | 2025-04-13 19:53 | XMS RPT_ITS | CCD ---
Author Organization [facility] ion Partnership [facility]EL[facility] Care Team Providers Care Lead Furnace Operator Name Role Phone Sho Welch LPN Unavailable Fadia Patel LPN N Unavailable Unavailab le Fadia Patel LPN N Unavailable Unavailab le Maru Alvares Unavailable KENNETH COMBSOPHER R Unavailable Unavailabl e GARRET, CHRISTOPHER R Unavailable Unavailabl e LAKTASH, MAKI M Unavailable Unavailable IMCA Unavailable Unavailable LAKTASH, MAKI M Unavailable Unavailable GONZALEZ, ELTON Unavailable Unavailable GONZALEZ, ELTON Unavailable Unavailable LAKTASH, MAKI M Unavailable Unavailable IMCA Unavailable Unavailable GONZALEZ, ELTON Unavailable Unavailable IMCA Unavailable Unavailable GOZNALEZ, ELTON Unavailable Unavailable GONZALEZ, ELTON Unavailable Unavailable IMCA Unavailable Unavailable GONZALEZ, ELTON Unavailable Unavailable IMCA Unavailable Unavailable IMCA Unavailable Unavailable LAKTASH, MAKI M Unavailable Unavailable IMCA Unavailable Unavailable IMCA Unavailable Unavailable LAKTASH, MAKI M Unavailable Unavailable IMCA Unavailable Unavailable IMCA Unavailable Unavailable GARRET, CHRISTOPHER R Unavailable Unavailabl e IMCA Unavailable Unavailable IMCA Unavailable Unavailable GARRET, CHRISTOPHER R Unavailable Unavailabl e IMCA Unavailable Unavailable GARRET, CHRISTOPHER R Unavailable Unavailabl e GARRET, CHRISTOPHER R Unavailable Unavailabl e IMCA Unavailable Unavailable GARRET, CHRISTOPHER R Unavailable Unavailabl e GARRET, CHRISTOPHER R Unavailable Unavailabl e IMCA Unavailable Unavailable IMCA Unavailable Unavailable LAKTASH, MAKI M Unavailable Unavailable IMCA Unavailable Unavailable IMCA Unavailable Unavailable IMCA Unavailable Unavailable ANIRUDH MUJICA Unavailable Unavailable GARRET, CHRISTOPHER R Unavailable Unavailabl e IMCA Unavailable Unavailable IMCA Unavailable Unavailable GARRET, CHRISTOPHER R Unavailable Unavailabl e IMCA Unavailable Unavailable IMCA Unavailable Unavailable ANIRUDH MUJICA Unavailable Unavailable IMCA Unavailable Unavailable IMCA Unavailable Unavailable MAKI RUSH Unavailable Unavailable IMCA Unavailable Unavailable IMCA Unavailable Unavailable Sho Welch LPN N Unavailable Renzo Beatty Primary Care Provider Kayleigh Tian Unavailable Dr. Renzo Beatty Primary Care Provider [phone] Rnezo Beatty Referring Provider MOUSTAPHA Maki Attending Provider Dr. Divya Coats Attending Provider [phone] Renzo Beatty Primary Care Provider [phone] Renzo Beatty Referring Provider MOUSTAPHA Maki Attending Provider Dr. Renzo Beatty Primary Care Provider [phone] Renzo Beatty Referring Provider Dr. Divya Coats Attending Provider [phone] MOUSTAPHA Maki Attending Provider MOUSTAPHA Alvarez Attending Provider MOUSTAPHA Roth Attending Provider Dr. Renzo Beatty Primary Care Provider [phone] Renzo Beatty Referring Provider MOUSTAPHA Pope Attending Provider Dr. Jason Fritz Attending Provider Dr. Mayco Johnson Attending Provider Dr. Renzo Beatty Primary Care Provider [phone] Renzo Beatty Referring Provider MOUSTAPHA Pope Attending Provider MOUSTAPHA Alvarez Attending Provider Dr. Jason Fritz Attending Provider [phone] Dr. Mayco Johnson Attending Provider [phone] Jason Fritz Referring Provider [phone] Dr. Jason Fritzit Provider Dr. Jason Fritz Other Provider [phone] Renzo Beatty Primary Care Provider [phone] Dr. Renzo Beatty Referring Provider [phone] MOUSTAPHA Alvarez Attending Provider [phone] Lam, Dr. Gomez Attending Provider [phone] Lam, Dr. Gomez Referring Provider [phone] Dr. Diyva Coats Attending Provider [phone] Franco, Dr. Sevilla Attending Provider [phone] Katia, Dr. Mcgee Attending Provider [phone] Renzo Beatty Primary Care Provider [phone] MOUSTAPHA Alvarez Attending Provider [phone] Dr. Renzo Beatty Referring Provider [phone] Renzo Beatty Primary Care Provider [phone] Dr. Jason Fritz Attending Provider [phone] MOUSTAPHA Alvarez Attending Provider [phone] Dr. Jason Fritz Referring Provider [phone] Dr. Jason Fritz Other Provider [phone] Renzo Beatty Primary Care Provider [phone] Dr. Renzo Beatty Referring Provider [phone] Dr. Jason rFitz Attending Provider [phone] MOUSTAPHA Alvarez Attending Provider [phone] Dr. Jason Fritz Provider [phone] Jason Fritz Referring Provider [phone] Dr. Jason Fritz Other Provider Dr. Mayco Clarke Other Provider MOUSTAPHA Roth Attending Provider Dr. Renzo Beatty Primary Care Provider [phone] Dr. Renzo Beatty Referring Provider [phone] Dr. Jason Fritz Attending Provider MOUSTAPHA Pope Attending Provider Dr. Renzo Beatty Primary Care Provider [phone] Dr. Renzo Beatty Referring Provider [phone] Dr. Renzo Beatty Primary Care Provider [phone] Dr. Jason Fritz Attending Provider Dr. Jason Fritz Referring Provider Lam, Dr. Gomez Other Provider Dr. Star Vanegas Attending Provider Dr. Christiano Newby Referring Provider Dr. Renzo Beatty Primary Care Provider [phone] Dr. Renzo Beatty Referring Provider MOUSTAPHA Pope Attending Provider Dr. Jason Fritz Attending Provider Dr. Star Vanegas Attending Provider Dr. Christiano Newby Referring Provider Dr. Renzo Beatty Primary Care Provider [phone] Dr. Renzo Beatty Referring Provider [phone] Dr. Jason Fritz Attending Provider Dr. Renzo Beatty DO Primary Care Provider Dr. Jai Miranda MD Attending Provider Dr. Jai Miranda MD Referring Provider Dr. Rickey Winkler MD Attending Provider Ernesto Ramirez MD Referring Provider Dr. Renzo Beatty DO Attending Provider [phone] Dr. Renzo Beatty DO Referring Provider Ernesto Ramirez MD Attending Provider Cristina MILES, Dr. Nickerson Other Provider Ernesto Ramirez MD Other Provider Ruben MILES, Dr. Vergara Admit Provider Ruben MILES, Dr. Vergara Other Provider Dr. Mayco Ryan DO Other Provider Bryn OJEDA, Dr. Muller Other Provider Elizabeth MILES, Dr. Mao Attending Provider Connor OJEDA, Dr. Mao Attending Provider Yesenia Han Attending Provider Bryn OJEDA, Dr. Muller Attending Provider Yesenia Han Referring Provider Mac[employer]-CEden Attending Provider Macario [employer]-CEden Referring Provider Dr. Renzo Beatty DO Primary Care Provider Dr. Renzo Beatty DO Referring Provider Ernesto Ramirez MD Attending Provider Dr. Renzo Beatty DO Attending Provider Ernesto Ramirez MD Referring Provider Dr. Jai Miranda MD Attending Provider Dr. Jai Miranda MD Referring Provider Dr. Edson Noguera MD Attending Provider Dr. Rnezo Beatty DO Primary Care Provider Ernesto Ramirez MD Attending Provider Dr. Renzo Beatty DO Referring Provider Dr. Renzo Beatty DO Primary Care Provider Dr. Renzo Beatty DO Primary Care Provider Ruben MILES, Dr. Vergara Attending Provider Jaci OJEDA, Dr. Muller Referring Provider [phone] Ruben MILES, Dr. Vergara Attending Provider Ruben MILES, Dr. Vergara Referring Provider Jaci OJEDA, Dr. Muller Primary Care Provider Jaci OJEDA, Dr. Muller Referring Provider Ruben MILES, Dr. Vergara Attending Provider Ruben MILES, Dr. Vergara Referring Provider Jaci OJEDA, Dr. Muller Primary Care Provider Jaci OJEDA, Dr. Muller Referring Provider Jaci, Renzo Primary Care Unavailable Jaci, Renzo Referring Unavailable Jaci, Renzo Attending Unavailable Jaci, Renzo Primary Care Unavailable Jaci, Renzo Attending Unavailable Jaci, Renzo Referring Unavailable Miranda, Jai Attending Unavailable Miranda, Jai Referring Unavailable Jaci, Renzo Primary Care Unavailable Miranda, Jai Referring Unavailable Miranda, Jai Attending Unavailable Jopperi, Mayco Consulting Unavailable Miranda, Jai Admitting Unavailable Jaci, Renzo Primary Care Unavailable Tereletsky, Renzo Consulting Unavailable Jaci, Renzo Primary Care Unavailable Jaci, Renzo Attending Unavailable Miranda, Jai Referring Unavailable Jopperi, Mayco Consulting Unavailable Tereletsky, Renzo Attending Unavailable Jaci, Renzo Primary Care Unavailable Miranda, Jai Admitting Unavailable Tereletsky, Renzo Consulting Unavailable Miranda, Jai Consulting Unavailable Zbigniew, Yesenia Attending Unavailable Miranda, Jai Attending Unavailable Jaci, Renzo Primary Care Unavailable Jaci, Renzo Referring Unavailable Miranda, Jai Attending Unavailable Miranda, Jai Referring Unavailable Jaci, Renzo Primary Care Unavailable Miranda, Jai Attending Unavailable Miranda, Jai Referring Unavailable Jaci, Renzo Primary Care Unavailable Eden Sorto Attending Unavailable Jaci, Renzo Primary Care Unavailable Jaci, Renzo Referring Unavailable Zbigniew, Yesenia Attending Unavailable Jaci, Renzo Primary Care Unavailable Jaci, Renzo Referring Unavailable Miranda, Jai Attending Unavailable Jaci, Renzo Primary Care Unavailable Jaci, Renzo Referring Unavailable Miranda, Jai Attending Unavailable Jaci, Renzo Primary Care Unavailable Jaci, Renzo Referring Unavailable Miranda, Jai Referring Unavailable Mayco Ryan Attending Unavailable JoppMayco green Consulting Unavailable Jaci, Renzo Primary Care Unavailable Miranda, Jai Admitting Unavailable Miranda, Jai Consulting Unavailable Mayco Johnson Attending Unavailable Miranda, Jai Attending Unavailable Eden Sorto Referring Unavailable Jaci, Renzo Primary Care Unavailable Eden Sorto Attending Unavailable Miranda, Jai Attending Unavailable Miranda, Jai Referring Unavailable Jaci, Renzo Primary Care Unavailable ZbigniewNikitaYesenia Referring Unavailable ZbigniewNikitaYesenia Attending Unavailable Jaci, Renzo Primary Care Unavailable Jaci, Renzo Primary Care Unavailable Jaci, Renzo Referring Unavailable Jaci, Renzo Attending Unavailable Jaci, Renzo Primary Care Unavailable Jaci, Renzo Referring Unavailable Jaci, Renzo Attending Unavailable Miranda, Jai Attending Unavailable Jaci, Renzo Primary Care Unavailable Miranda, Jai Referring Unavailable Mollison, Ernesto Referring Unavailable Mollison, Ernesto Attending Unavailable Kancherla, Krishan Consulting Unavailable Jaci, Renzo Primary Care Unavailable Mollison, Ernesto Attending Unavailable Jaci, Renzo Primary Care Unavailable Jaci, Renzo Referring Unavailable Mollison, Ernesto Attending Unavailable Jaci, Renzo Primary Care Unavailable Jaci, Renzo Referring Unavailable Mollison, Ernesto Attending Unavailable Jaci, Renzo Primary Care Unavailable Jaci, Renzo Referring Unavailable Miranda, Jai Attending Unavailable Jaci, Renzo Primary Care Unavailable Jaci, Renzo Referring Unavailable Mollison, Ernesto Referring Unavailable Jaci, Renzo Primary Care Unavailable Rickey Winkler Attending Unavailable Mollison, Ernesto Referring Unavailable Mollison, Ernesto Attending Unavailable Jaci, Renzo Primary Care Unavailable Kancherla, Krishan Consulting Unavailable Mollison, Ernesto Consulting Unavailable Miranda, Jai Attending Unavailable Jaci, Renzo Primary Care Unavailable Jaci, Renzo Referring Unavailable Mollison, Ernesto Referring Unavailable Mollison, Ernesto Attending Unavailable Jaci, Renzo Primary Care Unavailable Allergies Allergy Classification Reported Allergen(s) Allergy Type Date of Onset Reaction(s) Facility (7 sources) amLODIPine / benazepril drug allergy 1 [facility] Work Phone: (7 sources) olmesartan drug allergy 1 [facility] Work Phone: (11 sources) olmesartan; Translations: [OLMESARTAN MEDOXOMIL] Drug Allergy 7 Other: See Comments [facility] Repository Medications Current Medications Medication Drug Class(es) Dates Sig (Normalized) Sig (Original) acetaminophen 500 mg oral tablet (20 sources) Start: 06-22-2024 take 1 tablet by mouth every six hours Acetaminophen 500 mg Tablet Active 500 mg PO EVERY 6 HOURS 30 0 June 22, 2024 1:00am Start: 01-29-2023 End: 02-03-2024 take 2 tablets by mouth every six hours as needed Acetaminophen 500 mg tablet Discontinued 1000 mg PO EVERY 6 HOURS NEEDED 100 0 January 29, 2023 12:00am February 03, 2024 10:01am Start: 01-29-2023 take 1000 mg by mout h every six hours as needed Acetaminophen Active 1000 MG PO EVERY 6 HOURS NEEDED 100 January 29, 2023 12:00am Start: 08-07-2022 End: 10-02-2022 take 2 tablets by mouth every six hours as needed Acetaminophen 500 mg tablet Discontinued 1000 mg PO EVERY 6 HOURS NEEDED 100 0 August 07, 2022 12:00am October 02, 2022 9:53am Start: 08-07-2022 End: 10-02-2022 take 1000 mg by mouth every six hours as needed Acetaminophen Discontinued 1000 MG PO EVERY 6 HOURS NEEDED 100 August 07, 2022 12:00am October 02, 2022 9:53am amLODIPine 5 mg oral tablet (20 sources) Dihydropyridine Calcium Channel Raciel Start: 08-04-2020 take 1 tablet by mouth once daily Amlodipine 5 mg tablet Active 5 mg PO DAILY August 04, 2020 12:00am BP aspirin 81 mg delayed release oral tablet (20 sources) Nonsteroidal Anti-inflammatory Drug Start: 10-02-2022 take 1 tablet by mouth once daily Aspirin (Adult Aspirin Regimen) 81 mg tablet,delayed release (DR/EC) Active 81 mg PO DAILY October 02, 2022 12:00am SUPPLEMENT On Hold: Resume on 06/24/24. Start: 08-20-2010 End: 10-18-2015 take 1 tablet by mouth once daily ASPIRIN 81 MG TABS One tablet by mouth daily ASPIRIN [id number] Maru Alvares Start: 08-20-2010 End: 10-18-2015 take 1 tablet by mouth once daily ASPIRIN 81 MG TABS One tablet by mouth daily ASPIRIN [id number] Maru Randall Giorgio calcium citrate 1500 mg / cholecalciferol 200 unt oral tablet (20 sources) Vitamin D Start: 04-25-2020 Calcium Citrat e-Vitamin D3 (Calcium Citrate + D) 315 mg-5 mcg (200 unit) tablet Active 2 {tbl} PO AT BEDTIME April 25, 2020 1:00am SUPPLEMENT Start: 11-26-2017 End: 02-07-2019 Calcium Citrate-Vitamin D3 1 EACH tablet Discontinued 2 NMA PO AT BEDTIME November 26, 2017 12:00am February 07, 2019 8:18am supplement Start: 11-26-2017 End: 02-07-2019 Calcium Citrate-Vitamin D3 D iscontinued 2 EACH PO AT BEDTIME November 26, 2017 12:00am February 07, 2019 8:18am cholecalciferol 0.01 mg oral capsule (20 sources) Vitamin D Start: 01-08-2022 take 1 capsule by mouth once daily Cholecalciferol (Vitamin D3) (Vitamin D3) 10 mcg (400 unit) Capsule Active 10 ug PO DAILY January 08, 2022 12:00am SUPPLEMENT Start: 01-08-2022 take 1 capsule by mo [facility] once daily Cholecalciferol (Vitamin D3) (Vitamin D3) 10 mcg (400 unit) Capsule Active MCG PO DAILY January 08, 2022 12:00am fexofenadine hydrochloride 180 mg oral tablet (20 sources) Histamine-1 Receptor Antagonist Start: 01-08-2022 take 1 tablet by mouth once daily Fexofenadine (Inez) 180 mg Tablet Active 180 MG PO DAILY January 08, 2022 12:00am Start: 05-23-2021 End: 07-04-2021 take 1 tablet by mouth once daily as needed Fexofenadine (Inez) 180 mg Tablet Discontinued 180 mg PO DAILY as needed for ALLERGIES May 23, 2021 1:00am July 04, 2021 2:27pm Start: 01-29-2021 End: 03-15-2021 take 1 tablet by mouth once daily Fexofenadine (Inez Allergy) 60 mg tablet Discontinued 60 mg PO DAILY January 29, 2021 8:15am March 15, 2021 2:14pm Start: 08-04-2020 End: 01-29-2021 take 1 tablet by mouth twice daily Fexofenadine (Inez Allergy) 60 mg tablet Discontinued 60 mg PO TWICE A DAY August 04, 2020 12:00am January 29, 2021 8:16am Start: 11-26-2017 End: 02-07-2019 take 1 tablet by mouth once daily as needed Fexofenadine 180 MG tablet Discontinued 180 mg PO DAILY as needed for Allergies November 26, 2017 12:00am February 07, 2019 8:18am Start: 08-04-2010 End: 04-23-2016 INEZ 180 MG TABS FEXOFENADINE HCL [id number] Silvestre Munson Start: 08-04-2010 INEZ 180 MG TABS FEXOFENADINE HCL [id number] Crystal Thorne PA-C Start: 08-04-2010 End: 04-23-2016 INEZ 180 MG TABS FEXOFENADINE HCL [id number] Silvestre Munson Comment on above: Take 180 mg by mouth as needed. Fiber (9 sources) Start: 02-03-2024 take 1 capsule by mouth at bedtime Fiber capsule Active 2 NMA PO AT BEDTIME February 03, 2024 12:00am SUPPLEMENT Start: 02-03-2024 take 1 capsule by mouth at bed time Fiber capsule Active 2 NMA PO AT BEDTIME February 03, 2024 12:00am gabapentin 100 mg oral capsule (20 sources) Anti-epileptic Agent Start: 02-11-2022 take 1 capsule by mouth twice daily Gabapentin 100 mg capsule Active 100 mg PO TWICE A DAY February 11, 2022 12:00am PAIN Magnesium (20 sources) Start: 01-08-2022 Magnesium Tabl et Active 1 {tbl} PO AT BEDTIME January 08, 2022 12:00am SUPPLEMENT Start: 01-08-2022 Magnesium Tabl et Active 1 {tbl} PO AT BEDTIME January 08, 2022 12:00am Start: 01-08-2022 take 1 tablet by mouth at bedt emilia Magnesium Active 1 TABLET PO AT BEDTIME January 07, 2022 11:00pm Start: 01-08-2022 take 1 tablet by mouth at bedt emilia Magnesium Active 1 TABLET PO AT BEDTIME January 08, 2022 12:00am mecobalamin 1 mg sublingual tablet (20 sources) Start: 08-04-2020 Mecobalamin (V itamin B12) 1,000 mcg tablet,disintegrating Active 1500 ug SL DAILY August 04, 2020 12:00am SUPPLEMENT place tablet under tongue and allow to dissolve for at least30 secs before swallowing Start: 08-04-2020 Mecobalamin (V itamin B12) Active 1500 MCG SL DAILY August 04, 2020 12:00am place tablet under tongue and allow to dissolve for at least30 secs before swallowing 24 hr metoprolol succinate 25 mg extended release oral tablet (20 sources) beta-Adrenergic Raciel Start: 08-04-2020 take 1 tablet by mouth once daily Metoprolol Succinate 25 mg tablet extended release 24 hr Active 25 mg PO DAILY August 04, 2020 12:00am BP Start: 01-05-2015 take 1 tablet by rg th once daily METOPROLOL SUCCINATE ER 25 MG [id number] One tablet by mouth daily METOPROLOL SUCCINATE [id number] Renzo Beatty DO Start: 08-04-2010 End: 10-18-2015 TOPROL XL 100 MG [id number] METOPROLOL SUCCINATE [id number] Che Gross Start: 08-04-2010 End: 10-18-2015 TOPROL XL 100 MG [id number] METOPROLOL SUCCINATE [id number] Che Gross Multivitamin capsule (18 sources) Start: 04-25-2020 Multivitamin c apsule Active 2 NMA PO DAILY April 25, 2020 1:00am SUPPLEMENT Start: 04-25-2020 Multivitamin c apsule Active 2 NMA PO DAILY April 25, 2020 1:00am Start: 06-30-2017 End: 02-07-2019 Multivitamin capsule Discont inued 2 NMA PO EVERY MORNING June 30, 2017 1:00am February 07, 2019 8:18am supplement Start: 06-30-2017 End: 02-07-2019 Multivitamin capsule Discont inued 2 NMA PO EVERY MORNING June 30, 2017 1:00am February 07, 2019 8:18am Multivitamin preparation (19 sources) Start: 04-25-2020 take 2 capsules by mouth once daily multivitamin Active 2 CAP PO DAILY April 25, 2020 12:00am Start: 04-25-2020 take 2 capsules by m outh once daily multivitamin Active 2 CAP PO DAILY April 25, 2020 1:00am MULTIVITAMIN (CH ILDREN'S MULTIVIT COMPLETE ORAL) Take by mouth. 0 Active Comment on above: Take by mouth. pantoprazole 20 mg delayed release oral tablet (20 sources) Proton Pump Inhibitor Start: take 2 tablets by mouth once daily Pantoprazole (Protonix) 20 mg tablet,delayed release (DR/EC) Active 40 mg PO DAILY January 29, 2021 8:15am GERD Start: 08-04-2020 End: 01-29-2021 take 1 tablet by mouth once daily Pantoprazole (Protonix) 20 mg tablet,delayed release (DR/EC) Discontinued 20 mg PO DAILY August 04, 2020 12:00am January 29, 2021 8:16am Start: 09-01-2014 End: 02-07-2019 take 1 tablet by mouth once daily Pantoprazole 40 MG tablet Discontinued 40 mg PO DAILY September 01, 2014 12:00am February 07, 2019 8:18am GERD Start: 08-04-2010 End: 10-18-2015 PROTONIX 20 MG [facility] PANTOPRAZOLE SODIUM [id number] Crystal Thorne PA-C Comment on above: Take 40 mg by mouth once daily. tadalafil 20 mg oral tablet (9 sources) Phosphodiesterase 5 Inhibitor Start: 022 take 1 dose by mouth every twenty-four hours Tadalafil Active 20 MG PO DAILY February 11, 2022 12:00am administer approximately 30min before sexual activity; do not use more than 1 dose per 24hrs traZODone hydrochloride 50 mg oral tablet (9 sources) Serotonin Reuptake Inhibitor Start: 024 take 2 tablets by mouth at bedtime Trazodone 50 mg tablet Active 100 mg PO AT BEDTIME February 03, 2024 12:00am to sleep through the night Completed/Discontinued Medications Medication Drug Class(es) Dates Sig (Normalized) Sig (Original) acetaminophen 325 mg / HYDROcodone bitartrate 5 mg oral tablet (20 sources) Opioid Agonist Start: 08-23-2023 End: 08-27-2023 Hydrocodone-Acetami nophen 5-325 mg tablet Discontinued 1 {tbl} PO EVERY 6 HOURS NEEDED as needed for Pain 10 3 0 August 23, 2023 August 27, 2023 9:56am Avulsion fracture of bone Other injury of unspecified body region, initial encounter Start: 08-23-2023 take 1 tablet by rg th every six hours as needed Hydrocodone-Acetaminophen Active 1 TABLE T PO EVERY 6 HOURS NEEDED 10 3 August 23, 2023 Start: 07-29-2018 End: 07-31-2018 Hydrocodone-Acetaminophen 1 TABLET tablet Discontinued 1 {tbl} PO EVERY 4 HOURS NEEDED as needed for Pain 10 2 0 July 29, 2018 12:00am July 30, 2018 12:00am July 31, 2018 12:11am Fracture of phalanx of finger of left hand Start: 07-29-2018 End: 07-31-2018 take 1 tablet by mouth every four hours as needed Hydrocodone-Acetaminophen Discontinued 1 TABLET PO EVERY 4 HOURS NEEDED 10 2 July 29, 2018 12:00am July 31, 2018 12:11am Start: 03-30-2015 End: 04-03-2015 HYDROCODONE-ACETAMINOPHEN 5- 325 MG TABS 1-2 tabs as needed every 4 hours for pain HYDROCODONE-ACETAMINOPHEN [id number] Renzo Beatty DO Start: 01-05-2015 End: 03-03-2015 HYDROCODONE-ACETAMINOPHEN 5- 325 MG TABS one tab every six hours HYDROCODONE-ACETAMINOPHEN [id number] Renzo Beatty DO acetaminophen 325 mg / oxyCODONE hydrochloride 5 mg oral tablet (20 sources) Opioid Agonist Start: 04-07-2024 End: 04-19-2024 Oxycodone-Acetaminophen (Endocet) 5-325 mg tablet Discontinued 1 {tbl} PO Q4H as needed for pain 20 5 0 April 07, 2024 April 19, 2024 10:48am Tendinitis of both rotator cuffs Left shoulder pain Other shoulder lesions, right shoulder Other shoulder lesions, left shoulder Pain in left shoulder Other chronic pain Start: 05-29-2016 End: 06-30-2017 Oxycodone-Acetaminophen 1 TA BLET tablet Discontinued 1 - 2 {tbl} PO EVERY 6 HOURS NEEDED as needed for Pain 60 May 29, 2016 1:00am June 30, 2017 8:06am Start: 05-29-2016 End: 06-30-2017 take 1 tablet by mouth every six hours as needed Oxycodone-Acetaminophen Discontinued 1 - 2 TABLET PO EVERY 6 HOURS NEEDED 60 May 29, 2016 1:00am June 30, 2017 8:06am acyclovir 800 mg oral tablet (4 sources) Herpesvirus Nucleoside Analog DNA Polymerase Inhibitor, Herpes Simplex Virus Nucleoside Analog DNA Polymerase Inhibitor, Herpes Zoster Virus Nucleoside Analog DNA Polymerase Inhibitor Start: 11-18-2016 End: 11-25-2016 ACYCLOVIR 800 MG TABS Take 1 tablet 5 times daily ACYCLOVIR [id number] Bishop GERARD [id number] 200 actuat albuterol 0.09 mg/actuat metered dose inhaler (20 sources) beta2-Adrenergic Agonist Start: 02-07-2019 End: 02-07-2019 Albuterol Sulfate (Proair Hfa) 90 mcg/actuation HFA aerosol inhaler Discontinued 2 NMA INHALATION EVERY 6 HOURS 6.7 2 February 07, 2019 12:00am February 07, 2019 8:54am Start: 02-07-2019 End: 02-07-2019 take 1 puff(s) by inhalation every six hours Albuterol Sulfate (Proair Hfa) 90 mcg/actuation HFA aerosol inhaler Discontinued 2 PUFF INHALATION EVERY 6 HOURS 6.7 February 07, 2019 12:00am February 07, 2019 8:54am amoxicillin 500 mg oral tablet (9 sources) Penicillin-class Antibacterial Start: 04-23-2024 End: 08-03-2024 take 4 tablets by mouth every hour Amoxicillin 500 mg tablet Discontinued 2000 mg PO ONCE 4 2 April 23, 2024 1:00am August 03, 2024 11:01am DENTAL PROCEDURES take 4 tabs within 1 hr prior to dental procedure. amoxicillin 875 mg / clavulanate 125 mg oral tablet (20 sources) Penicillin-class Antibacterial Start: 10-15-2021 End: 10-25-2021 Amoxicillin-Pot Clavulanate 875-125 mg tablet Discontinued 1 {tbl} PO Q12H 20 10 October 15, 2021 12:00am October 24, 2021 12:00am October 25, 2021 12:03am Acute sinusitis, unspecified Start: 10-15-2021 End: 10-25-2021 take 1 tablet by mouth every twelve hours Amoxicillin-Pot Clavulanate Discontinued 1 TABLET PO Q12H 20 October 15, 2021 12:00am October 25, 2021 12:03am Start: 02-07-2019 End: 02-07-2019 Amoxicillin-Pot Clavulanate (Augmentin) 875-125 mg tablet Discontinued 1 {tbl} PO TWICE A DAY 20 10 February 07, 2019 12:00am February 16, 2019 12:00am February 07, 2019 8:54am apixaban 2.5 mg oral tablet (20 sources) Factor Xa Inhibitor Start: 01-29-2023 End: 03-10-2023 take 1 tablet by mouth twice daily Apixaban (Eliquis) 2.5 mg tablet Discontinued 2.5 mg PO TWICE A DAY January 29, 2023 12:00am March 10, 2023 11:19am Start: 08-07-2022 End: 09-16-2022 take 1 tablet by mouth twice daily Apixaban (Eliquis) 2.5 mg tablet Discontinued 2.5 mg PO TWICE A DAY 70 August 07, 2022 12:00am September 16, 2022 3:56pm atorvastatin 10 mg oral tablet (7 sources) HMG-CoA Reductase Inhibitor Start: 05-25-2015 take 1 tablet by mouth once daily for hyperlipidemia ATORVASTATIN CALCIUM 10 MG TABS 1 tablet by mouth daily at night for cholesterol ATORVASTATIN CALCIUM [id number] Renzo Beatty DO azithromycin 250 mg oral tablet (20 sources) Macrolide Antimicrobial Start: 04-11-2022 End: 06-03-2022 Azithromycin 250 mg tablet Discontinued 250 mg PO daily April 11, 2022 1:00am June 03, 2022 3:29pm 2 tablets today, then 1 tablet daily on days 2 through 5 cefadroxil 500 mg oral capsule (20 sources) Cephalosporin Antibacterial Start: 07-29-2018 End: 02-07-2019 take 1 capsule by mouth twice daily Cefadroxil 500 MG capsule Discontinued 500 mg PO TWICE A DAY 10 0 July 29, 2018 12:00am February 07, 2019 8:18am celecoxib 200 mg oral capsule (20 sources) Nonsteroidal Anti-inflammatory Drug Start: 05-23-2021 End: 06-22-2024 take 1 capsule by mouth twice daily Celecoxib (Celebrex) 200 mg Capsule Discontinued 200 mg PO TWICE A DAY May 23, 2021 1:00am June 22, 2024 4:39pm PAIN Start: 05-23-2021 take 1 capsule by mo [facility] once daily Celecoxib (Celebrex) 200 mg Capsule Active 200 MG PO DAILY May 23, 2021 1:00am Start: 04-25-2020 End: 03-15-2021 take 1 capsule by mouth once daily Celecoxib (Celebrex) 200 mg capsule Discontinued 200 mg PO DAILY April 25, 2020 1:00am March 15, 2021 2:14pm Start: 09-01-2014 End: 02-07-2019 take 1 capsule by mouth once daily Celecoxib 200 MG capsule Discontinued 200 mg PO DAILY September 01, 2014 12:00am February 07, 2019 8:18am antiinflamatory Comment on above: Take 200 mg by mouth once daily. cephalexin 500 mg oral capsule (20 sources) Cephalosporin Antibacterial Start: End: take 1 capsule by mouth every six hours Cephalexin 500 mg capsule Discontinued 500 mg PO EVERY 6 HOURS 40 0 May 26, 2023 1:00am July 11, 2023 10:17am Start: 04-09-2023 End: 07-11-2023 take 4 capsules by mouth once Cephalexin 500 mg capsul e Discontinued 2000 mg PO ONCE 4 2 April 09, 2023 1:00am July 11, 2023 10:17am Take within 1 hour prior to dental procedure Start: 04-09-2023 End: 07-11-2023 take 2000 mg by mouth once Cephalexin Discontinued 200 0 MG PO ONCE 4 April 09, 2023 1:00am July 11, 2023 10:17am Take within 1 hour prior to dental procedure Start: 01-01-2022 End: 01-11-2022 take 1 capsule by mouth every twelve hours Cephalexin 500 mg capsule Discontinued 500 mg PO Q12H 20 10 0 January 01, 2022 12:00am January 10, 2022 12:00am January 11, 2022 12:03am Start: 02-07-2019 End: 02-14-2019 take 1 capsule by mouth every six hours Cephalexin (Keflex) 500 mg capsule Discontinued 500 mg PO EVERY 6 HOURS 28 7 0 February 07, 2019 12:00am February 13, 2019 12:00am February 14, 2019 12:09am GLUCOSAMINE-CHONDROITIN (14 sources) Start: 01-05-2015 End: 10-18-2015 take 1 tablet by mouth twice daily COSAMIN DS 500-400 MG TABS One tablet by mouth twice daily GLUCOSAMINE-CHONDROITIN [id number] Renzo Chirinos [facility] DO Start: 01-05-2015 End: 10-18-2015 take 1 tablet by mouth twice daily COSAMIN DS 500-400 MG TABS One tablet by mouth twice daily GLUCOSAMINE-CHONDROITIN [id number] Renzo Chirinos [facility] [place] DO Start: 01-05-2015 take 1 tablet by rg twice daily COSAMIN DS 500-400 MG TABS One tablet by mouth twice daily GLUCOSAMINE-CHONDROITIN [id number] Renzo A [facility] DO ciprofloxacin 3 mg/ml ophthalmic solution (7 sources) Quinolone Antimicrobial Start: 08-04-2010 End: 08-07-2010 CIPROFLOXACIN HCL 0.3 % SOLN 1 drop twice daily for 3 days. CIPROFLOXACIN HCL [id number] Crystal RECINOSC docusate sodium 50 mg / sennosides, detention 8.6 mg oral tablet (9 sources) Start: 06-22-2024 End: 08-03-2024 Sennosides-Docusate Sodium (Stimulant Laxative Plus) 8.6-50 mg Tablet Discontinued 2 {tbl} PO TWICE A DAY as needed for constipation 30 0 June 22, 2024 4:41pm August 03, 2024 11:02am doxycycline hyclate 20 mg oral tablet (20 sources) Tetracycline-class Drug Start: 08-04-2020 End: 04-05-2021 take 1 tablet by mouth twice daily Doxycycline Hyclate 20 mg tablet Discontinued 20 mg PO TWICE A DAY August 04, 2020 12:00am April 05, 2021 7:19am fenofibric acid 135 mg delayed release oral capsule (20 sources) Peroxisome Proliferator Receptor alpha Agonist Start: 01-05-2015 End: 05-25-2015 take 1 tablet by mouth once daily FENOFIBRIC ACID 135 MG CPDR One tablet by mouth daily CHOLINE FENOFIBRATE [id number] Renzo Chirinos Jaci Start: 08-04-2010 TRICOR TABS 20 03/01/09 FENOFIBRATE TABS [id number] Crystal Thorne PA-C Start: 08-04-2010 End: 05-25-2015 TRICOR TABS 05/25 FENOFIBRATE TABS [id number] Renzo Candis Jaci hydroCHLOROthiazide 25 mg oral tablet (14 sources) Thiazide Diuretic Start: 01-05-2015 take 1 tablet by mouth once daily HYDROCHLOROTHIAZIDE 25 MG TABS One tablet by mouth daily HYDROCHLOROTHIAZIDE [id number] Renzo Candis Jaci DO Inulin (2 sources) INULIN (METAMUCI L CLEAR-NATURAL, INUL, ORAL) Take by mouth. 0 Active Comment on above: Take by mouth. meloxicam 15 mg oral tablet (16 sources) Nonsteroidal Anti-inflammator y Drug Start: 06-22-2024 End: 08-03-2024 take 1 tablet by mouth once daily Meloxicam 15 mg Tablet Discontinued 15 mg PO DAILY 30 0 June 22, 2024 1:00am August 03, 2024 11:02am Start: 05-21-2012 End: 06-20-2012 MOBIC 15 MG TABS one pill tw ice daily with food MELOXICAM [id number] Maru Alvares 24 hr metFORMIN hydrochloride 500 mg extended release oral tablet (20 sources) Biguanide Start: 09-18-2015 take 1 tablet by mouth twice daily METFORMIN HCL ER 500 MG [id number] One tablet by mouth twice daily METFORMIN HCL [id number] Renzo Candis Jaci DO Start: 01-05-2015 End: 09-18-2015 take 1 tablet by mouth once daily METFORMIN HCL 500 MG TABS One tablet by mouth daily METFORMIN HCL [id number] Renzo Candis Jaci OJEDA methocarbamol 500 mg oral tablet (18 sources) Muscle Relaxant Start: 06-22-2024 End: 08-03-2024 Methocarbamol 500 mg tablet Discontinued 750 mg PO THREE TIMES A DAY as needed for pain/spasms 30 0 July 06, 2024 11:34am August 03, 2024 11:02am Morinda Citrifolia Fruit (17 sources) Start: 05-23-2021 End: 07-04-2021 take 1000 mg by mouth once daily Morinda Citrifolia Fruit Discontinued 1000 MG PO DAILY May 23, 2021 12:00am July 04, 2021 1:27pm Start: 05-23-2021 End: 07-04-2021 take 1000 mg by mouth once daily Morinda Citrifolia Fruit Discontinued 1000 MG PO DAILY May 23, 2021 1:00am July 04, 2021 2:27pm Morinda Citrifolia Fruit 250 mg Capsule (9 sources) Start: 05-23-2021 End: 07-04-2021 take 1 capsule by mouth once daily Morinda Citrifolia Fruit 250 mg Capsule Discontinued 1000 mg PO DAILY May 23, 2021 1:00am July 04, 2021 2:27pm multivitamin capsule (17 sources) Start: 06-30-2017 End: 02-07-2019 take 2 capsules by mouth once daily in the morning multivitamin capsule Discontinued 2 CAP PO EVERY MORNING June 30, 2017 12:00am February 07, 2019 7:18am Start: 06-30-2017 End: 02-07-2019 take 2 capsules by mouth once daily in the morning multivitamin capsule Discontinued 2 CAP PO EVERY MORNING June 30, 2017 1:00am February 07, 2019 8:18am [place] 7-Hon-Cix-Fish Oil (Fi sh Oil) 1,200 (144-216) mg Capsule (20 sources) Start: 01-08-2022 End: 06-03-2022 [place] 5-Bfk-Lto-Fish Oil (Fi sh Oil) 1,200 (144-216) mg Capsule Discontinued 1 NMA PO DAILY January 08, 2022 12:00am June 03, 2022 3:30pm Start: 01-08-2022 End: 06-03-2022 take 1 capsule by mouth once daily [place] 8-Dqb-Csk-Fish Oil (Fish Oil) 1,200 (144-216) mg Capsule Discontinued 1 CAP PO DAILY January 08, 2022 12:00am June 03, 2022 3:30pm Start: 01-08-2022 End: 06-03-2022 take 1 capsule by mouth once daily [place] 5-Tlu-Vbz-Fish Oil (Fish Oil) 1,200 (144-216) mg Capsule Discontinued 1 CAP PO DAILY January 07, 2022 11:00pm June 03, 2022 2:30pm Start: 01-08-2022 take 1 capsule by mo ut once daily [place] 0-Cno-Ntc-Fish Oil (Fish Oil) 1,200 (144-216) mg Capsule Active 1 CAP PO DAILY January 07, 2022 11:00pm Start: 01-08-2022 take 1 capsule by mo uth once daily [place] 8-Orw-Xwt-Fish Oil (Fish Oil) 1,200 (144-216) mg Capsule Active 1 CAP PO DAILY January 08, 2022 12:00am Start: 05-23-2021 End: 07-04-2021 [place] 9-Kvc-Jkj-Fish Oil (Fi sh Oil) 1,200 (144-216) mg Capsule Discontinued 2 NMA PO DAILY May 23, 2021 1:00am July 04, 2021 2:28pm Start: 05-23-2021 End: 07-04-2021 take 2 capsules by mouth once daily [place] 2-Fky-Hvb-Fish Oil (Fish Oil) 1,200 (144-216) mg Capsule Discontinued 2 CAP PO DAILY May 23, 2021 12:00am July 04, 2021 1:28pm Start: 05-23-2021 End: 07-04-2021 take 2 capsules by mouth once daily [place] 0-Ikg-Fgi-Fish Oil (Fish Oil) 1,200 (144-216) mg Capsule Discontinued 2 CAP PO DAILY May 23, 2021 1:00am July 04, 2021 2:28pm oxyCODONE hydrochloride 5 mg oral tablet (20 sources) Opioid Agonist Start: 06-22-2024 End: 08-03-2024 take 2.5-5 mg by mouth every six hours as needed for pain Oxycodone 5 mg tablet Discontinued 2.5 - 5 mg PO EVERY 6 HOURS as needed for pain 28 7 0 July 02, 2024 August 03, 2024 11:02am Status post lumbar spinal fusion Arthrodesis status Start: 02-24-2023 End: 03-03-2023 take 5-10 mg by mouth every eight hours as needed for pain Oxycodone 5 mg tablet Discontinued 5 - 10 mg PO Q8H as needed for Pain Score 6-10/10 42 7 0 February 24, 2023 March 02, 2023 12:00am March 03, 2023 1:04am Other acute postprocedural pain Start: 02-12-2023 End: 02-19-2023 take 5-10 mg by mouth every six hours for pain Oxycodone 5 mg tablet Discontinued 5 - 10 mg PO EVERY 6 HOURS as needed for Pain Score 6-10/10 50 7 0 February 12, 2023 February 18, 2023 12:00am February 19, 2023 12:10am Other acute postprocedural pain Take before therapy otherwise wean off of medicine as soon as possible. Medication is addictive. Start: 01-29-2023 End: 03-10-2023 take 5-10 mg by mouth every four hours as needed for pain Oxycodone 5 mg tablet Discontinued 5 - 10 mg PO Q4H as needed for pain 60 7 0 February 05, 2023 March 10, 2023 11:19am Orthopedic aftercare Encounter for other orthopedic aftercare Start: 08-28-2022 End: 09-04-2022 take 5-10 mg by mouth every six hours as needed for pain Oxycodone 5 mg tablet Discontinued 5 - 10 mg PO EVERY 6 HOURS as needed for Pain Score 6-10/10 42 7 0 August 28, 2022 September 03, 2022 12:00am September 04, 2022 12:04am Other acute postprocedural pain Start: 08-19-2022 End: 08-26-2022 take 5-10 mg by mouth every six hours as needed for pain Oxycodone 5 mg tablet Discontinued 5 - 10 mg PO EVERY 6 HOURS as needed for Pain Score 6-10/10 60 7 0 August 19, 2022 August 25, 2022 12:00am August 26, 2022 12:04am Other acute postprocedural pain Start: 08-07-2022 End: 10-02-2022 take 5-10 mg by mouth every four hours as needed for pain Oxycodone 5 mg tablet Discontinued 5 - 10 mg PO Q4H as needed for Pain Score 6-10/10 42 7 0 September 09, 2022 September 15, 2022 12:00am September 16, 2022 12:04am Other acute postprocedural pain needs to wean down as soon as possible. only take what is needed. supplement with tylenol and NSAID. predniSONE 20 mg oral tablet (20 sources) Start: 03-18-2023 End: 04-09-2023 take 1 tablet by mouth twice daily Prednisone 20 mg tablet Discontinued 20 mg PO TWICE A DAY 10 March 18, 2023 1:00am April 09, 2023 11:12am Start: 06-30-2017 End: 07-12-2017 Prednisone 10 mg tablet Disc ontinued 10 mg PO daily 30 12 0 June 30, 2017 1:00am July 11, 2017 12:00am July 12, 2017 12:11am Unspecified contact dermatitis, unspecified cause Take 4 tabs once daily days 1-3, 3 tabs once daily days 4-6,2 tabs once daily days 7-9 and 1 tab once daily days 10-12 psyllium (11 sources) Start: 01-05-2015 End: 11-18-2016 take 0.5 [tsp_us] by mouth once daily METAMUCIL 30.9 % ORAL POWD 1/2 teaspoon once daily PSYLLIUM [id number] Fadia Patel LPN Start: 01-05-2015 take 0.5 [tsp_us] by mouth once daily METAMUCIL 30.9 % ORAL POWD 1/2 teaspoon once daily PSYLLIUM [id number] Renzo Beatty DO Psyllium Seed (Sugar) (17 sources) Start: 07-06-2018 End: 02-07-2019 take 822 g by mouth once daily Psyllium Seed (Sugar) Discontinued 822 GM PO DAILY July 05, 2018 11:00pm February 07, 2019 7:18am Start: 07-06-2018 End: 02-07-2019 take 822 g by mouth once daily Psyllium Seed (Sugar) Discontinued 822 GM PO DAILY July 06, 2018 12:00am February 07, 2019 8:18am Psyllium Seed (Sugar) 575 GM powder (9 sources) Start: 07-06-2018 End: 02-07-2019 Psyllium Seed (Sugar) 575 GM powder Discontinued 822 g PO DAILY July 06, 2018 12:00am February 07, 2019 8:18am fiber supplement Start: 07-06-2018 End: 02-07-2019 Psyllium Seed (Sugar) 575 GM powder Discontinued 822 g PO DAILY July 06, 2018 12:00am February 07, 2019 8:18am rivaroxaban 15 mg oral tablet (20 sources) Factor Xa Inhibitor Start: 06-06-2016 End: 06-30-2017 take 1 tablet by mouth twice daily Rivaroxaban 15 MG tablet Discontinued 15 mg PO TWICE A DAY 42 0 June 06, 2016 1:00am June 30, 2017 8:06am SITagliptin 100 mg oral tablet (7 sources) Dipeptidyl Peptidase 4 Inhibitor Start: 01-05-2015 take 1 tablet by mouth once daily JANUVIA 100 MG TABS One tablet by mouth daily SITAGLIPTIN PHOSPHATE [id number] Renzo Beatty DO sulfacetamide sodium 100 mg/ml ophthalmic solution (20 sources) Sulfonamide Antibacterial Start: 08-14-2018 End: 08-21-2018 Sulfacetamide Sodium (Bleph-10) 10 % drops Discontinued 1 NMA OPHTHALMIC Q3H 15 7 0 August 14, 2018 12:00am August 20, 2018 12:00am August 21, 2018 12:08am Start: 08-14-2018 End: 08-21-2018 Sulfacetamide Sodium (Bleph- 10) 10 % drops Discontinued 1 DRP OPHTHALMIC Q3H 15 7 August 14, 2018 12:00am August 21, 2018 12:08am sulfamethoxazole 800 mg / trimethoprim 160 mg oral tablet (20 sources) Dihydrofolate Reductase Inhibitor Antibacterial, Sulfonamide Antimicrobial Start: 05-26-2023 End: 07-11-2023 Sulfamethoxazole-Trimethopri m (Bactrim Ds) 800-160 mg tablet Discontinued 1 {tbl} PO TWICE A DAY May 26, 2023 1:00am July 11, 2023 10:18am Start: 02-07-2019 End: 04-25-2020 Sulfamethoxazole-Trimethopri m 1 TABLET tablet Discontinued 1 {tbl} PO TWICE A DAY February 07, 2019 12:00am April 25, 2020 4:21pm Start: 02-07-2019 End: 04-25-2020 take 1 tablet by mouth twice daily Sulfamethoxazole-Trimethoprim Discontinu ed 1 TABLET PO TWICE A DAY February 07, 2019 12:00am April 25, 2020 4:21pm tamsulosin hydrochloride 0.4 mg oral capsule (7 sources) alpha-Adrenergic Raciel Start: 03-30-2015 End: 04-09-2015 take 1 tablet by mouth once daily TAMSULOSIN HCL 0.4 MG CAPS One tablet by mouth daily at night for BPH TAMSULOSIN HCL [id number] Renzo Beatty DO TOBRAMYCIN (2 sources) Aminoglycoside Antibacterial Start: 01-09-2017 TOBREX 0.3 % OINT Apply half inch ribbon along right lower eyelash border twice daily TOBRAMYCIN [id number] Robi GERARD Start: 01-09-2017 TOBREX 0.3 % O INT Apply half inch ribbon along right lower eyelash border twice daily TOBRAMYCIN [id number] Robi GERARD traMADol hydrochloride 50 mg oral tablet (20 sources) Opioid Agonist Start: 10-02-2022 End: 01-29-2023 take 1 tablet by mouth twice daily Tramadol 50 mg tablet Discontinued 50 mg PO TWICE A DAY October 02, 2022 12:00am January 29, 2023 7:59am PAIN Start: 03-15-2021 End: 08-07-2022 take 1 tablet by mouth twice daily Tramadol 50 mg tablet Discontinued 50 mg PO TWICE A DAY March 15, 2021 1:00am August 07, 2022 7:30am PAIN Start: 04-25-2020 End: 01-22-2021 take 1 tablet by mouth twice daily as needed Tramadol 50 mg tablet Discontinued 50 mg PO TWICE A DAY as needed April 25, 2020 1:00am January 22, 2021 8:45am Start: 09-01-2015 End: 02-07-2019 take 1 tablet by mouth twice daily Tramadol 50 MG tablet Discontinued 50 mg PO TWICE A DAY October 27, 2015 12:00am February 07, 2019 8:18am pain Start: 01-05-2015 End: 03-03-2015 TRAMADOL HCL 50 MG TABS PRN TRAMADOL HCL [id number] Renzo Beatty Comment on above: Take 50 mg by mouth twice daily. vitamin b12 0.5 mg oral tablet (20 sources) Vitamin B12 Start: 11-26-2017 End: 02-07-2019 take 3 tablets by mouth once daily Cyanocobalamin (Vitamin B-12) 500 MCG tablet Discontinued 1500 ug PO DAILY@0800 November 26, 2017 12:00am February 07, 2019 8:18am supplement Start: 11-26-2017 End: 02-07-2019 take 1500 ug by mouth once daily Cyanocobalamin (Vitamin B-12) Discontinued 1500 MCG PO DAILY@0800 November 26, 2017 12:00am February 07, 2019 8:18am wheat dextrin 3000 mg powder for oral solution (20 sources) Start: 01-29-2021 End: 06-03-2022 Dextrin (Clear Fiber) 3 gram /4 gram powder Discontinued 3 - 4 tsp PO DAILY January 29, 2021 8:15am June 03, 2022 3:29pm Start: 01-29-2021 End: 06-03-2022 Dextrin (Clear Fiber) 3 gram /4 gram powder Discontinued 3 - 4 tsp PO DAILY January 29, 2021 8:15am June 03, 2022 3:29pm Start: 04-25-2020 End: 01-29-2021 Dextrin (Clear Fiber) 3 gram /4 gram powder Discontinued 3 g PO THREE TIMES A DAY August 04, 2020 12:00am January 29, 2021 8:16am Problems Active Problems Problem Classification Problem Date Documented Da te Episodic/Chronic Acute bronchitis (20 sources) Acute bronchitis; Translations: [Acute bronchitis, unspecified] 04-11-2022 Episodic Allergic reactions (20 sources) Contact dermatitis; Translations: [Unspecified contact dermatitis, unspecified cause] 07-29-2018 Episodic Complication of device; implant or graft (20 sources) Fibrosis due to internal orthopedic prosthetic devices, implants and grafts, initial encounter; Translations: [Arthrofibrosis of total knee replacement] 03-10-2023 Episodic Diabetes mellitus with complications (14 sources) Type II diabetes mellitus uncontrolled; Translations: [Type 2 diabetes mellitus with hyperglycemia] Onset: 5 Resolved: 6 01-05-2015 Chronic Diabetes mellitus without complication (7 sources) Type 2 diabetes mellitus well controlled; Translations: [Type 2 diabetes mellitus without complications] Onset: 6 05-25-2015 Chronic Disorders of lipid metabolism (7 sources) Hyperlipidemia; Translations: [Hyperlipidemia, unspecified] 08-04-2010 Chronic Esophageal disorders (20 sources) Gastroesophageal reflux disease; Translations: [Gastro-esophageal reflux disease without esophagitis] Onset: 7 08-04-2010 Chronic Essential hypertension (20 sources) Hypertensive disorder; Translations: [Essential (primary) hypertension] 08-04-2010 Chronic Comment on above: CONTROLLED ON MED Fracture of lower limb (10 sources) Fracture of distal end of tibia; Translations: [Unspecified fracture of lower end of left tibia, initial encounter for closed fracture] 08-23-2023 Episodic Fracture of upper limb (20 sources) Fracture of phalanx of ring finger; Translations: [Fracture of unspecified phalanx of left ring finger, initial encounter for closed fracture] 08-04-2020 Episodic Immunizations and screening for infectious disease (20 sources) Contact with or exposure to other viral diseases; Translations: [Lab test negative for COVID-19 virus] Episodic Joint disorders and dislocations; trauma-related (7 sources) Derangement of meniscus; Translations: [Other meniscus derangements, unspecified meniscus, unspecified knee] Onset: 6 09-07-2015 Chronic Open wounds of extremities (20 sources) Wound ; Translations: [Chronic wound of extremity] Episodic Comment on above: RESOLVED Osteoarthritis (20 sources) Osteoarthritis of knee; Translations: [Osteoarthritis of left knee joint] Onset: 5 05-14-2016 Chronic Other acquired deformities (4 sources) Scoliosis deformity of spine; Translations: [Scoliosis, unspecified] Chronic Other acquired deformities (8 sources) Scoliosis, unspecified; Translations: [Scoliosis [and kyphoscoliosis], idiopathic] Chronic Other acquired deformities (19 sources) Spondylolisthesis; Translations: [Spondylolisthesis, site unspecified] 10-02-2022 Episodic Other acquired deformities (5 sources) Spondylolisthesis, site unspecified; Translations: [Spondylolisthesis] 10-02-2022 Episodic Other acquired deformities (20 sources) Lumbar spondylolisthesis; Translations: [Spondylolisthesis, lumbar region] 06-30-2024 Episodic Other aftercare (20 sources) Follow-up status; Translations: [Encounter for other orthopedic aftercare] 08-19-2022 Episodic Other bone disease and musculoskeletal deformities (20 sources) Segmental and somatic dysfunction; Translations: [Segmental and somatic dysfunction of cervical region] 12-18-2021 Episodic Other bone disease and musculoskeletal deformities (20 sources) Segmental and somatic dysfunction of cervical region; Translations: [Nonallopathic lesions, cervical region] Episodic Other bone disease and musculoskeletal deformities (20 sources) Segmental and somatic dysfunction of lumbar region; Translations: [Nonallopathic lesions, lumbar region] Episodic Other bone disease and musculoskeletal deformities (20 sources) Segmental and somatic dysfunction of pelvic region; Translations: [Nonallopathic lesions, pelvic region] Episodic Other bone disease and musculoskeletal deformities (20 sources) Segmental and somatic dysfunction of thoracic region; Translations: [Nonallopathic lesions, thoracic region] Episodic Other circulatory disease (20 sources) Abnormal foot pulse; Translations: [Other specified symptoms and signs involving the circulatory and respiratory systems] 06-03-2022 Episodic Other circulatory disease (3 sources) Other specified symptoms and signs involving the circulatory and respiratory systems; Translations: [Other symptoms involving cardiovascular system] 06-03-2022 Episodic Other connective tissue disease (20 sources) History of total knee arthroplasty; Translations: [Presence of right artificial knee joint] 08-06-2022 Chronic Other connective tissue disease (15 sources) Presence of unspecified artificial knee joint; Translations: [Knee joint replacement] 08-08-2022 Chronic Other connective tissue disease (1 source) Presence of right artificial knee joint; Translations: [Knee joint replacement] 08-08-2022 Chronic Other connective tissue disease (18 sources) Bilateral rotator cuff tendinitis; Translations: [Other shoulder lesions, right shoulder] 07-11-2023 Episodic Other connective tissue disease (9 sources) Tendinosis of left shoulder; Translations: [Other specified disorders of tendon, left shoulder] 12-30-2023 Episodic Other connective tissue disease (15 sources) Pain in lower limb; Translations: [Pain in right leg] 07-15-2024 Episodic Other connective tissue disease (20 sources) History of lumbar fusion; Translations: [Arthrodesis status] 06-22-2024 Episodic Other diseases of veins and lymphatics (20 sources) Postthrombotic syndrome; Translations: [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] 01-15-2022 Chronic Comment on above: RESOLVED Other diseases of veins and lymphatics (9 sources) 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; Translations: [Postphlebetic syndrome with ulcer and inflammation] Chronic Other ear and sense organ disorders (20 sources) Impacted cerumen; Translations: [Impacted cerumen, left ear] 10-15-2021 Episodic Other ear and sense organ disorders (1 source) Impacted cerumen, left ear; Translations: [Impacted cerumen] Episodic Other gastrointestinal disorders (20 sources) History of hemorrhoid; Translations: [Personal history of other diseases of the digestive system] 01-08-2022 Episodic Other gastrointestinal disorders (9 sources) Bariatric surgery status; Translations: [Bariatric surgery status] Episodic Other gastrointestinal disorders (9 sources) Personal history of other diseases of the digestive system; Translations: [Personal history of other specified diseases] Episodic Other gastrointestinal disorders (1 source) Diarrhea, unspecified; Translations: [Diarrhea, unspecified] Onset: 5 Episodic Other gastrointestinal disorders (1 source) Change in bowel habit; Translations: [Change in bowel habit] Onset: 5 Episodic Other injuries and conditions due to external causes (10 sources) Fracture of bone; Translations: [Other injury of unspecified body region, initial encounter] 08-23-2023 Episodic Other liver diseases (7 sources) Steatosis of liver; Translations: [Fatty (change of) liver, not elsewhere classified] Onset: 5 01-05-2015 Chronic Other nervous system disorders (1 source) Other chronic pain; Translations: [Other chronic pain] Onset: 4 Chronic Other nervous system disorders (20 sources) Acute postoperative pain; Translations: [Other acute postprocedural pain] 08-07-2022 Episodic Other nervous system disorders (10 sources) Other acute postprocedural pain; Translations: [Other acute postoperative pain] 08-08-2022 Episodic Other non-traumatic joint disorders (20 sources) Pain in left knee; Translations: [Left knee pain] 03-15-2021 Episodic Other non-traumatic joint disorders (3 sources) Stiffness of unspecified knee, not elsewhere classified; Translations: [Stiffness of joint, not elsewhere classified, lower leg] 09-16-2022 Episodic Other non-traumatic joint disorders (5 sources) Stiffness of left knee, not elsewhere classified; Translations: [Stiffness of joint, not elsewhere classified, lower leg] 03-10-2023 Episodic Other non-traumatic joint disorders (11 sources) Pain in right shoulder; Translations: [Right shoulder pain] 07-11-2023 Episodic Other nutritional; endocrine; and metabolic disorders (7 sources) Obesity; Translations: [Obesity, unspecified] Onset: 5 01-05-2015 Chronic Other nutritional; endocrine; and metabolic disorders (2 sources) Body mass index 40+ - severely obese; Translations: [Adult BMI 45.0-49.9 kg/sq m] Onset: 7 04-14-2017 Chronic Other nutritional; endocrine; and metabolic disorders (4 sources) Morbid obesity; Translations: [Morbid obesity] Onset: 8 09-04-2017 Chronic Other nutritional; endocrine; and metabolic disorders (20 sources) Body mass index 30+ - obesity; Translations: [Obesity, unspecified] 01-08-2022 Chronic Other nutritional; endocrine; and metabolic disorders (9 sources) Obesity, unspecified; Translations: [Obesity, unspecified] Chronic Other nutritional; endocrine; and metabolic disorders (20 sources) H/O: diabetes mellitus; Translations: [Personal history of other endocrine, nutritional and metabolic disease] 06-03-2022 Episodic Other nutritional; endocrine; and metabolic disorders (8 sources) Personal history of other endocrine, nutritional and metabolic disease; Translations: [Personal history of other endocrine, metabolic, and immunity disorders] Episodic Other screening for suspected conditions (not mental disorders or infectious disease) (20 sources) Patient encounter status; Translations: [Encounter for screening for malignant neoplasm of intestinal tract, unspecified] 05-25-2021 Episodic Other upper respiratory infections (20 sources) Upper respiratory infection; Translations: [Acute upper respiratory infection, unspecified] 11-08-2020 Episodic Otitis media and related conditions (20 sources) Otitis media; Translations: [Otitis media, unspecified, left ear] Episodic Residual codes; unclassified (20 sources) Dependence on continuous positive airway pressure ventilation; Translations: [Dependence on other enabling machines and devices] 01-08-2022 Chronic Residual codes; unclassified (9 sources) Dependence on other enabling machines and devices; Translations: [Dependence on other enabling machines] Chronic Residual codes; unclassified (9 sources) Obstructive sleep apnea (adult) (pediatric); Translations: [Obstructive sleep apnea (adult)(pediatric)] Chronic Residual codes; unclassified (20 sources) History of repair of umbilical hernia; Translations: [Other specified postprocedural states] 01-08-2022 Episodic Residual codes; unclassified (20 sources) History of operative procedure on shoulder; Translations: [Other specified postprocedural states] 01-08-2022 Episodic Residual codes; unclassified (20 sources) Other specified postprocedural states; Translations: [Other postprocedural status] Episodic Residual codes; unclassified (9 sources) Acquired absence of other organs; Translations: [Other postprocedural status] Episodic Residual codes; unclassified (12 sources) Edema of lower extremity; Translations: [Localized edema] 06-03-2023 Episodic Skin and subcutaneous tissue infections (20 sources) Cellulitis of lower leg; Translations: [Cellulitis of left lower limb] 02-07-2019 Episodic Spondylosis; intervertebral disc disorders; other back problems (20 sources) Degeneration of lumbar intervertebral disc; Translations: [Degeneration of thoracic intervertebral disc] Onset: 5 01-05-2015 Chronic Comment on above: anterolisthesis L5 o n S1 Spondylosis; intervertebral disc disorders; other back problems (20 sources) Neck pain; Translations: [Cervicalgia] Onset: 5 07-11-2023 Episodic Sprains and strains (18 sources) Injury of right hand; Translations: [Strain of unspecified muscle, fascia and tendon at wrist and hand level, right hand, initial encounter] 03-18-2023 Episodic Superficial injury; contusion (20 sources) Abrasion, right lower leg, initial encounter; Translations: [Infected abrasion of skin of right lower leg] Episodic Unclassified (20 sources) Obstructive sleep apnea syndrome; Translations: [Obstructive sleep apnea (adult) (pediatric)] Onset: 5 01-05-2015 Chronic Unclassified (1 source) Unknown / UNK(Unknown) Onset: 8 Unclassified (2 sources) Postoperative physical examination; Translations: [Encounter for other specified surgical aftercare] Onset: 7 06-13-2016 Unclassified (12 sources) Status post lumbar spinal fusion; Translations: [Z98.1 - Arthrodesis status] Unclassified (3 sources) Z47.89 - Encounter for other orthopedic aftercare Unclassified (1 source) Other intervertebral disc degeneration, lumbar region with discogenic back pain only; Translations: [Other intervertebral disc degeneration, lumbar region with discogenic back pain only] Onset: Varicose veins of lower extremity (20 sources) Venous varices; Translations: [Varicose veins of unspecified lower extremity with inflammation] Episodic Past or Other Problems Problem Classification Problem [...] Onset: 08-20-2010 Resolved: 01-05-2015 01-05-2015 Episodic Other acquired deformities (2 sources) Spondylolisthesis, lumbar region; Translations: [Spondylolisthesis, lumbar region] Onset: 06-21-2024 Episodic Other aftercare (5 sources) Encounter for other specified surgical aftercare; Translations: [Encounter for other specified surgical aftercare] Onset: 06-13-2016 06-13-2016 Episodic Other aftercare (19 sources) Encounter for other orthopedic aftercare; Translations: [Unspecified orthopedic aftercare] Onset: 04-19-2024 08-19-2022 Episodic Other aftercare (1 source) longterm (current) use of systemic steroids; 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] Onset: 05-03-2024 Episodic Other circulatory disease (14 sources) Abnormal [...] 10-25-2015 10-18-2015 Episodic Other connective tissue disease (3 sources) Other shoulder lesions, right shoulder; Translations: [Disorders of bursae and tendons in shoulder region, unspecified] Onset: 04-09-2024 07-11-2023 Episodic Other connective tissue disease (2 sources) Arthrodesis status; Translations: [Arthrodesis status] Onset: 06-23-2024 Episodic Other connective tissue disease (1 source) Pain in right lower leg; Translations: [Pain in right lower leg] Onset: 07-23-2024 Episodic Other connective tissue disease (1 source) Pain in left lower leg; Translations: [Pain in left lower leg] Onset: 07-15-2024 Episodic Other connective tissue disease (1 source) Other shoulder lesions, left shoulder; Translations: [Other shoulder lesions, left shoulder] Onset: 04-09-2024 Episodic Other diseases of kidney and ureters (14 sources) Kidney disease; Translations: [Disorder of kidney and ureter, unspecified] Onset: 08-20-2010 Resolved: 01-05-2015 08-20-2010 Episodic Other non-traumatic joint disorders (20 sources) Knee pain; Translations: [Impingement syndrome of shoulder region] Onset: 02-13-2015 Resolved: 08-31-2015 02-13-2015 Episodic Other non-traumatic joint disorders (4 sources) Pain in unspecified shoulder; Translations: [Pain in unspecified shoulder] Resolved: 01-05-2015 02-05-2012 Episodic Other non-traumatic joint disorders (16 sources) Pain in left shoulder; Translations: [Left shoulder pain] Onset: 05-19-2024 07-11-2023 Episodic Other non-traumatic joint disorders (1 source) Pain in unspecified joint; Translations: [Pain in unspecified joint] Onset: 03-31-2024 Episodic Phlebitis; thrombophlebitis and thromboembolism (20 sources) Deep venous thrombosis; Translations: [H/O: Deep vein thrombosis] Onset: 08-16-2016 08-16-2016 Episodic Comment on above: 07/15/24personal hx o f lower ext DVT x2 in post op period after ortho surg (R shoulder and L knee meniscus) Syncope (14 sources) Syncope and collapse; Translations: [Syncope and collapse] Onset: 08-20-2010 Resolved: 01-05-2015 01-05-2015 Episodic Unclassified (4 sources) Pain; Translations: [Pain, unspecified] Onset: 11-18-2016 11-18-2016 Episodic Unclassified (1 source) Morbid (severe) obesity due to excess calories Onset: 09-02-2017 Unclassified (2 sources) Preoperative procedures; Translations: [Encounter for other preprocedural examination] Onset: 10-18-2015 Resolved: 10-23-2015 10-18-2015 Unclassified (20 sources) hx of gastric sleeve 11-21-2021 Viral infection (4 sources) Herpes zoster; Translations: [Zoster without complications] Onset: 11-18-2016 11-18-2016 Episodic Results Test Name Value Interpretation Reference Range Facility [facility] 8623on OP OVA AND PARASITES EXAM, ROUTINE These results were obtained using wet preparation(s) and trichrome stained smear. This test does not include testing for Crytosporidium parvum, Cyclospora, or Microsporidia. One negative specimen does not rule out the possibility of a parasitic infection. TESTING PERFORMED AT [facility]. ORIGINAL REPORT ON FILE IN LAB CONTAINS ADDITIONAL TEST SITE INFORMATION. Ova/Parasite Exam NO OVA, CYSTS, OR PARASITES FOUND. Normal [facility] Comment on above: Performed By: #### L 4600.0100, L505.7010, L101.9900, L501.1400, L501.6710 #### [facility] [address] [place], [place], [address] CDIFF (PCR)on 01-28-2025 CDIFF Pending 027 027 NAP1-B1 Presumptive Negative *for epidemiolologic???use C. Diff PCR Negative- No toxigenic C. Diff Detected Normal [facility] Comment on above: Performed By: #### L 4600.0100, L505.7010, L101.9900, L501.1400, L501.6710 #### [facility] [address] [place], [place], [address] ENTERIC PATHOGEN PANEL STOOL on 01-28-2025 EP PANEL Normal Reference Range = Not Detected Nucleic acid amplification test method Not detected for Campylobacter group, Salmonella species, Shigella species, Vibrio Group, Yersinia enterocolitica, EHEC (Shiga Toxin 1, Shiga Toxin 2), Norovirus Gl/Gll, and Rotavirus A. Other common stool pathogens are not detected on this panel include: Aeromonas/Plesiomonas or parasites. Order testing for these organisms separately if suspected. This is an amplified DNA test which makes it both specific and sensitive. CAMPYLOBACTER Not Detected Norovirus Not Detected Rotavirus Not Detected Salmonella Not Detected Shiga Toxin Not Detected Shigella sp. Not Detected VIBRIO Not Detected Yersinia Not Detected Normal [facility] Comment on above: Performed By: #### L 4600.0100, L505.7010, L101.9900, L501.1400, L501.6710 #### [facility] [address] [place], [address] Stool Lactoferrin/WBCon 10-0 -2024 WBCST Normal Reference Range = Negative Fecal WBC Lactoferrin Negative: No Fecal WBC Lactoferrin present Normal [facility] Comment on above: Performed By: #### L 4600.0100, L505.7010, L101.9900, L501.1400, L501.6710 #### [facility] [address] [place], [address] CBC W/Diff, Automatedon 10-0 -2024 Absolute Lymph 2.01 X10 3/uL Normal 0.83-4.51 [facility] Comment on above: Performed By: #### L 101.9900, L501.6710, L506.1001, L503.0106, L506.0400, L100.0100, L501.5200, L500.4050, L501.9520 ####[facility] [address] [place], [address] Absolute Neut 3.7 X10 3/uL Normal 2.0-7.7 [facility] Comment on above: Performed By: #### L 101.9900, L501.6710, L506.1001, L503.0106, L506.0400, L100.0100, L501.5200, L500.4050, L501.9520 ####[facility] [address] [place], [address] Basophils/100 WBC (Bld) 0.5 % Normal 0-1 [facility] Comment on above: Performed By: #### L 101.9900, L501.6710, L506.1001, L503.0106, L506.0400, L100.0100, L501.5200, L500.4050, L501.9520 ####[facility] [address] [place], [place], [phone] Eosinophils/100 WBC (Bld) 2.7 % Normal 0-5 [facility] Comment on above: Performed By: #### L 101.9900, L501.6710, L506.1001, L503.0106, L506.0400, L100.0100, L501.5200, L500.4050, L501.9520 ####[facility] [address] [place], [phone]) Erythrocyte distribution width (RBC) [Ratio] 13.7 % Normal 11.6-14.6 [facility] Comment on above: Performed By: #### L 101.9900, L501.6710, L506.1001, L503.0106, L506.0400, L100.0100, L501.5200, L500.4050, L501.9520 ####[facility] [address] [place], [address](422) Hematocrit (Bld) [Volume fraction] 46.5 % Normal 40-54 [facility] Comment on above: Performed By: #### L 101.9900, L501.6710, L506.1001, L503.0106, L506.0400, L100.0100, L501.5200, L500.4050, L501.9520 ####[facility] [address] [place], [address]([phone] Hemoglobin (Bld) [Mass/Vol] 15.1 g/dL Normal 13.0-16.5 [facility] Comment on above: Performed By: #### L 101.9900, L501.6710, L506.1001, L503.0106, L506.0400, L100.0100, L501.5200, L500.4050, L501.9520 ####[facility] [address] [place], [address] IG% 0.300 Normal 0.0-0.9 [facility] Comment on above: Result Comment: IG% - Immature Granulocytes (promyelocytes, myelocytes and metamyelocytes) > 1% indicates that a LEFT SHIFT is Present. Performed By: #### L 101.9900, L501.6710, L506.1001, L503.0106, L506.0400, L100.0100, L501.5200, L500.4050, L501.9520 ####[facility] [address] [place], [address] Lymphocytes/100 WBC (Bld) 30.5 % Normal 19-41 [facility] Comment on above: Performed By: #### L 101.9900, L501.6710, L506.1001, L503.0106, L506.0400, L100.0100, L501.5200, L500.4050, L501.9520 ####[facility] [address] [place], [address] MCH (RBC) [Entitic mass] 28.0 pg Normal 27.0-32.0 [facility] Comment on above: Performed By: #### L 101.9900, L501.6710, L506.1001, L503.0106, L506.0400, L100.0100, L501.5200, L500.4050, L501.9520 ####[facility] [address] [place], [address] MCHC (RBC) [Mass/Vol] 32.5 g/dL Normal 32-36 [facility] Comment on above: Performed By: #### L 101.9900, L501.6710, L506.1001, L503.0106, L506.0400, L100.0100, L501.5200, L500.4050, L501.9520 ####[facility] [address] [place], [address] MCV (RBC) [Entitic vol] 86.3 fL Normal 80-94 [facility] Comment on above: Performed By: #### L 101.9900, L501.6710, L506.1001, L503.0106, L506.0400, L100.0100, L501.5200, L500.4050, L501.9520 ####[facility] [address] [place], [address] Monocytes/100 WBC (Bld) 10.6 % High 0-10 [facility] Comment on above: Performed By: #### L 101.9900, L501.6710, L506.1001, L503.0106, L506.0400, L100.0100, L501.5200, L500.4050, L501.9520 ####[facility] [address] [place], [address] Neutrophils/100 WBC (Bld) 55.4 % Normal 47-70 [facility] Comment on above: Performed By: #### L 101.9900, L501.6710, L506.1001, L503.0106, L506.0400, L100.0100, L501.5200, L500.4050, L501.9520 ####[facility] [address] [place], [address] Nucleated RBC (Bld) [#/Vol] 0 10*3/uL Normal 0-5 [facility] Comment on above: Performed By: #### L 101.9900, L501.6710, L506.1001, L503.0106, L506.0400, L100.0100, L501.5200, L500.4050, L501.9520 ####[facility] [address] [place], [address] Platelet mean volume (Bld) [Entitic vol] 11.6 fL Normal 6.2-12.0 [facility] Comment on above: Performed By: #### L 101.9900, L501.6710, L506.1001, L503.0106, L506.0400, L100.0100, L501.5200, L500.4050, L501.9520 ####[facility] [address] [place], [place], [phone](577) Platelets (Bld) [#/Vol] 233 10*3/uL Normal 150-450 [facility] Comment on above: Performed By: #### L 101.9900, L501.6710, L506.1001, L503.0106, L506.0400, L100.0100, L501.5200, L500.4050, L501.9520 ####[facility] [address] [place], [place], [phone](368) RBC (Bld) [#/Vol] 5.39 10*6/uL Normal 4.6-6.2 [facility] Comment on above: Performed By: #### L 101.9900, L501.6710, L506.1001, L503.0106, L506.0400, L100.0100, L501.5200, L500.4050, L501.9520 ####[facility] [address] [place], [place], [phone] RDW SD 42.9 fl Normal 35.1-43.9 [facility] Comment on above: Performed By: #### L 101.9900, L501.6710, L506.1001, L503.0106, L506.0400, L100.0100, L501.5200, L500.4050, L501.9520 ####[facility] [address] [place], [place], [phone] WBC (Bld) [#/Vol] 6.6 10*3/uL Normal 4.4-11.0 [facility] Comment on above: Performed By: #### L 101.9900, L501.6710, L506.1001, L503.0106, L506.0400, L100.0100, L501.5200, L500.4050, L501.9520 ####[facility] [address] [place], [place], [phone] CRPon 01-27-2025 C-REACTIVE PROT < 3.00 Normal 0.0-3.0 [facility] Comment on above: Performed By: #### L 101.9900, L501.6710, L506.1001, L503.0106, L506.0400, L100.0100, L501.5200, L500.4050, L501.9520 ####[facility] [address] [place], [place], [phone] Comprehensive Metabolic Prof ilon 01-27-2025 Albumin [Mass/Vol] 4.0 g/dL Normal 3.5-5.0 [facility] Comment on above: Performed By: #### L 101.9900, L501.6710, L506.1001, L503.0106, L506.0400, L100.0100, L501.5200, L500.4050, L501.9520 ####[facility] [address] [place], [place], [phone] Albumin/Globulin [Mass ratio] 1.8 {ratio} Normal 0.9-2.4 [facility] Comment on above: Performed By: #### L 101.9900, L501.6710, L506.1001, L503.0106, L506.0400, L100.0100, L501.5200, L500.4050, L501.9520 ####[facility] [address] [place], [address] ALK PHOS 59 U/L Normal 40-129 [facility] Comment on above: Performed By: #### L 101.9900, L501.6710, L506.1001, L503.0106, L506.0400, L100.0100, L501.5200, L500.4050, L501.9520 ####[facility] [address] [place], [place], [phone](311) ALT [Catalytic activity/Vol] 14 U/L Normal <=46 [facility] Comment on above: Performed By: #### L 101.9900, L501.6710, L506.1001, L503.0106, L506.0400, L100.0100, L501.5200, L500.4050, L501.9520 ####[facility] [address] [place], [place], [phone] AST [Catalytic activity/Vol] 16 U/L Normal <=37 [facility] Comment on above: Performed By: #### L 101.9900, L501.6710, L506.1001, L503.0106, L506.0400, L100.0100, L501.5200, L500.4050, L501.9520 ####[facility] [address] [place], [place], [phone] Bilirubin [Mass/Vol] 0.38 mg/dL Normal 0.00-1.30 [facility] Comment on above: Performed By: #### L 101.9900, L501.6710, L506.1001, L503.0106, L506.0400, L100.0100, L501.5200, L500.4050, L501.9520 ####[facility] [address] [place], [place], [phone]([phone]) BUN/CRE 18.6 RATIO Normal 10-20 [facility] Comment on above: Performed By: #### L 101.9900, L501.6710, L506.1001, L503.0106, L506.0400, L100.0100, L501.5200, L500.4050, L501.9520 ####[facility] [address] [place], [address] Calcium [Mass/Vol] 9.0 mg/dL Normal 7.6-11.0 [facility] Comment on above: Performed By: #### L 101.9900, L501.6710, L506.1001, L503.0106, L506.0400, L100.0100, L501.5200, L500.4050, L501.9520 ####[facility] [address] [place], [address] Chloride [Moles/Vol] 106 mmol/L Normal 98-108 [facility] Comment on above: Performed By: #### L 101.9900, L501.6710, L506.1001, L503.0106, L506.0400, L100.0100, L501.5200, L500.4050, L501.9520 ####[facility] [address] [place], [address] CO2 [Moles/Vol] 25.5 mmol/L Normal 21.0-32.0 [facility] Comment on above: Performed By: #### L 101.9900, L501.6710, L506.1001, L503.0106, L506.0400, L100.0100, L501.5200, L500.4050, L501.9520 ####[facility] [address] [place], [address] Creatinine [Mass/Vol] 0.94 mg/dL Normal 0.70-1.20 [facility] Comment on above: Performed By: #### L 101.9900, L501.6710, L506.1001, L503.0106, L506.0400, L100.0100, L501.5200, L500.4050, L501.9520 ####[facility] [address] [place], [address] GAP 11 Normal 5-15 [facility] Comment on above: Performed By: #### L 101.9900, L501.6710, L506.1001, L503.0106, L506.0400, L100.0100, L501.5200, L500.4050, L501.9520 ####[facility] [address] [place], [address] GFR/1.73 sq M.predicted among non-blacks MDRD (S/P/Bld) [Vol rate/Area] 95 mL/min/{1.73_m2} Normal >60 [facility] Comment on above: Result Comment: mL/m in/1.73m2 CKD-EPI Creatinine Equation (2020) Performed By: #### L 101.9900, L501.6710, L506.1001, L503.0106, L506.0400, L100.0100, L501.5200, L500.4050, L501.9520 ####[facility] [address] [place], [address] Globulin (S) [Mass/Vol] 2.2 g/dL Normal 2.2-4.2 [facility] Comment on above: Performed By: #### L 101.9900, L501.6710, L506.1001, L503.0106, L506.0400, L100.0100, L501.5200, L500.4050, L501.9520 ####[facility] [address] [place], [address] Glucose [Mass/Vol] 93 mg/dL Normal 70-99 [facility] Comment on above: Performed By: #### L 101.9900, L501.6710, L506.1001, L503.0106, L506.0400, L100.0100, L501.5200, L500.4050, L501.9520 ####[facility] [address] [place], [address] Potassium [Moles/Vol] 4.2 mmol/L Normal 3.3-5.1 [facility] Comment on above: Performed By: #### L 101.9900, L501.6710, L506.1001, L503.0106, L506.0400, L100.0100, L501.5200, L500.4050, L501.9520 ####[facility] [address] [place], [address] Sodium [Moles/Vol] 142 mmol/L Normal 133-145 [facility] Comment on above: Performed By: #### L 101.9900, L501.6710, L506.1001, L503.0106, L506.0400, L100.0100, L501.5200, L500.4050, L501.9520 ####[facility] [address] [place], [address] T PROT 6.2 g/dL Normal 5.9-8.4 [facility] Comment on above: Performed By: #### L 101.9900, L501.6710, L506.1001, L503.0106, L506.0400, L100.0100, L501.5200, L500.4050, L501.9520 ####[facility] [address] [place], [address] Urea nitrogen [Mass/Vol] 18 mg/dL Normal 4-19 [facility] Comment on above: Performed By: #### L 101.9900, L501.6710, L506.1001, L503.0106, L506.0400, L100.0100, L501.5200, L500.4050, L501.9520 ####[facility] [address] [place], [place], [id number] Erythrocyte Sed Rateon 01-27 SED RATE < 1 Normal 0-20 [facility] Comment on above: Performed By: #### L 101.9900, L501.6710, L506.1001, L503.0106, L506.0400, L100.0100, L501.5200, L500.4050, L501.9520 ####[facility] [address] [place], [place], [id number] Magnesiumon 01-27-2025 Magnesium [Mass/Vol] 2.2 mg/dL Normal 1.5-2.2 [facility] Comment on above: Performed By: #### L 101.9900, L501.6710, L506.1001, L503.0106, L506.0400, L100.0100, L501.5200, L500.4050, L501.9520 ####[facility] [address] [place], [place], [phone] T4 Free Directon 01-27-2025 T4 FREE DIRECT 1.20 ng/dL Normal 0.76-1.46 [facility] Comment on above: Performed By: #### L 101.9900, L501.6710, L506.1001, L503.0106, L506.0400, L100.0100, L501.5200, L500.4050, L501.9520 ####[facility] [address] [place], [place], [id number] Thyroid Stim Hormone (TSH)on 01-27-2025 TSH 1.110 uIU/mL Normal 0.300-4.200 [facility] Comment on above: Performed By: #### L 101.9900, L501.6710, L506.1001, L503.0106, L506.0400, L100.0100, L501.5200, L500.4050, L501.9520 ####[facility] [address] [place], [place], [address] Vitamin B12on 01-27-2025 Cobalamin (Vitamin B12) [Mass/Vol] pg/mL High 180-914 [facility] Comment on above: Performed By: #### L 101.9900, L501.6710, L506.1001, L503.0106, L506.0400, L100.0100, L501.5200, L500.4050, L501.9520 ####[facility] [address] [place], [place], [address] Vitamin D,25 Hydroxyon 01-27 Vitamin D 25-OH 93.3 ng/mL Normal 30-100 [facility] Comment on above: Result Comment: Dinora min D Status Deficiency: <20 ng/mL (50nmol/L) Insufficiency: 20-30 ng/mL (50-75 nmol/L) Sufficiency: 30-100 ng/mL (75-250 nmol/L) Toxicity: >100 ng/mL (>250 nmol/L) Performed By: #### L 101.9900, L501.6710, L506.1001, L503.0106, L506.0400, L100.0100, L501.5200, L500.4050, L501.9520 ####[facility] [address] [place], [place], [address] Orthopedic Visit Reporton Orthopedic Visit Report [facility] [address] [place] [address] 5 [place], [place] [address] OFFICE VISIT Date of Service: 12/23/24 MR#: [id number] Acct: [id number] Name: OZIEL BURTON Rep #: [id number] : 1970 Provider: Dr. Jai Miranda MD Age/Sex: 54/M Location: [facility] Status: Signed Intake Vital Signs 07/15/24 09:55 12/23/24 11:03 Height 5 ft 10 in 5 ft 10 in Intake Visit Reasons: LUMBAR SPINE Chief Complaint: 6 month post op Accompanied by: Self Is patient in pain?: Yes Pain scale (1-10): 3 Allergies olmesartan medoxomil (From Benicar) Allergy (Verified 12/23/24 11:03) Itching Medications ???Medication ???Instructions ???Recorded ???Confirmed ???Type calcium 315 mg (as 2 tab PO QHS SUPPLEMENT 04/25/20 0 12/23/24 History citrate)-vitamin D3 5 mcg (200 unit) tablet (Calcium Citrate + D) multivitamin 2 cap PO DAILY SUPPLEMENT 04/25/20 12/23/24 History amlodipine 5 mg tablet 5 mg PO DAILY BP 08/04/20 12/23/24 History mecobalamin (vitamin B12) 1,000 1,500 mcg sublingual DAILY 1 12/23/24 History mcg disintegrating SUPPLEMENT tablet,sublingual metoprolol succinate 25 mg 25 mg PO DAILY BP 08/04/20 5 History tablet,extended release 24 hr pantoprazole 20 mg tablet,delayed 40 mg PO DAILY GERD 01/29/2111/27 History release (Protonix) cholecalciferol (vitamin D3) 10 10 mcg PO DAILY SUPPLEMENT 2 12/23/24 History mcg (400 unit) capsule (Vitamin D3) magnesium 1 tab PO QHS SUPPLEMENT 01/08/22 0 12/23/24 History gabapentin 100 mg capsule 100 mg PO BID PAIN 02/11/22 History aspirin 81 mg tablet,delayed 81 mg PO DAILY SUPPLEMENT 10/02/22 12/23/24 History release (Adult Aspirin Regimen) Held on 06/22/24. Instructions: Resume on 06/24/24. 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 Traumatic open wound of right lower leg Chronic wound of extremity Degenerative disc disease Varicose veins with inflammation History of hemorrhoids Hypertension GERD (gastroesophageal reflux disease) History of deep vein thrombosis History of diabetes mellitus CPAP (continuous positive airway pressure) dependence Obstructive sleep apnea Arthritis Obesity (BMI 35.0-39.9 without comorbidity) Wears glasses Alcohol use History of steroid therapy DVT (deep venous thrombosis) Back pain Gastric reflux CPAP (continuous positive airway pressure) dependence Leg cramps History of echocardiogram History of stress test Hypertension Varicose veins of right lower extremity Lab test negative for COVID-19 virus Disorder of uvula Diabetes Hemorrhoids Arthritis Surgical History History of bilateral knee arthroplasty History of root canal procedure Hx of knee surgery Hx of arthroplasty Hx of gastric bypass Hx of knee surgery Hx of colonoscopy History of tonsillectomy History of gastric restrictive surgery History of shoulder surgery History of arthroscopic knee surgery History of umbilical hernia repair History of surgical removal of ganglion cyst hx of gastric sleeve H/O shoulder surgery H/O hernia repair H/O knee surgery H/O foot surgery Deviated septum History of tonsillectomy Family History Other Breast cancer Social History Smoking Status: Current some day smoker tobacco type: cigars alcohol intake: current alcohol intake frequency: holidays/special occasions only HPI LUMBAR SPINE Details: This documentation accurately reflects the service provided and the decisions made by me, Dr. Jai Miranda MD 12/23/24 1100. Part of today???s visit was documented by Windy Segundo MA and Lori Verma RN, acting as scribe. OZIEL BURTON is a 54 year old M here today for 6 month post op s/p L3-S1 oblique lumbar interbody fusion (OLIF), minimally invasive left sided approach, lateral decubitus DOS 06-21-24. Patient states that his pain is a 3 today. He complains of increased pain into his bilateral buttocks. He states that he is done with physical therapy. Patient did physical therapy twice a week f (more content not included)... Normal [facility] L/S Spine Min 4 Viewson 11-27 L/S Spine Min 4 Views [facility] Imaging Services [address] [place], [place] [id number] L/S Spine Min 4 Views MR#: [id number] Acct: [id number] Name: OZIEL BURTON Rep #: [id number] : 1970 M 54 From: Raz Valdez MD PCP: Dr. Renzo Beatty DO Status: REG CLI Study: L/S Spine Min 4 Views Date of Exam: 12/21/24 Exam# [id number] Ordering Dr: Jai Miranda MD PROCEDURE: L/S SPINE MIN 4 VIEWS 12/21/2024 REASON FOR EXAM: POST OP TECHNIQUE: L/S SPINE MIN 4 VIEWS COMPARISON: 09/21/2024 FINDINGS: Postoperative changes of posterior instrumented fusion with disc spacers from L3-S1. Hardware appears intact and in stable alignment. No subluxation is appreciated. The L5-S1 disc spacer appears anteriorly displaced/migrated, unchanged from multiple prior exams. Mild multilevel spondylotic changes with varying degrees of disc space narrowing, endplate sclerosis and anterior osteophytosis, and hypertrophic facet arthropathy. Unremarkable soft tissues. RAD/L/S Spine Min 4 Views IMPRESSION: No acute findings. Chronic degenerative and postoperative changes as described. Reading Location: [id number] CC: Dr. Jai Miranda MD; Dr. Renzo Beatty DO Court Clerk: Signed Normal [facility] PT D/C Summary (1)on 025 PT D/C Summary (1) [facility] Physical Therapy [address] [place] [address] / REHABILITATION SERVICES DISCHARGE SUMMARY MR#: [id number] Acct: [id number] Name: OZIEL BURTON Rep #: [id number] : 1970 54 From: Denzel Reyes DPT Referring Dr.: Dr. Jai Miranda, MD Status: REG RCR Insurance: [employer]/[facility] SELF PAY INSURANCE Discharge Summary D/C summary: It has been my pleasure to treat OZIEL BURTON referred by Dr. Jai Miranda MD, with the diagnosis of Lumbar fusion, DOS: 06/21/24 for a total of 21 visit(s). Discharge Date: 10/11/24 Please see the following information for a summary of their discharge status. Subjective Subjective: Pt. reports being 80% better overall. Pt. reports sleeping well, but still has some tenderness at middle of his back. Pt. reports being 80% better overall. Pt. is HEP compliant. Pain Lumbar spine: Pain Intensity (Out of 10): 0 L flank: Pain Intensity (Out of 10): 0 Overall Improvement % Improvement: 80 Objective Objective/Function: ROM: Lumbar: flexion full NE, ext min loss tightness, SB min los bilat, rotation full motion NE. Pt. has normal HS length bilaterally. Pt. has good B hip ROM. MMT: full without increase in symptoms. No myotomal weakness noted. Fair core strength. GAIT: normal without issues, normal posture, no issues. STAIRS: normal without weakness, no increase in symptoms. Goals Goal 1:: LTG: Pt. to be I with HEP. Goal Progress: Goal Met Goal 2:: STG: Pt. to sleep without increase in symptoms. Goal Progress: Goal Met Goal 3:: STG: Pt. to have no issues with sit to stand movements. Goal Progress: Goal Met Goal 4:: LTG: to have full strength of BLEs without increase in symptoms. Goal Progress: Goal Met Goal 5:: LTG: Pt. to ambulate unlimited distances without increase in lumbar spine pain. Goal Progress: Goal Met Goal 6:: LTG: Pt. to report no lumbar spine pain with all functional mobility. Goal Progress: Goal Met Plan Plan: Pt. to be DC from PT at this point in time. Pt. has met all goals. D/C Information d/c sentence: If there are questions or concerns regarding this patient's physical therapy, please feel free to call me at [phone]. Thank you for the referral of this patient. Sincerely, Denzel Brenner Sipos, DPT Balance/Gait/Function al tests Balance/Special Test Scores Oswestry Low Back Score: 0 Improvement % Improvement: 80 10/11/24 1136 CC: Dr. Jai Miranda MD; Dr. Renzo Beatty DO CLS Signed Normal [facility] Lumbar Spine 2 or 3 Viewson 09-21-2024 Lumbar Spine 2 or 3 Views [facility] Imaging Services [address] [place] [address] Lumbar Spine 2 or 3 Views MR#: [id number] Acct: [id number] Name: OZIEL BURTON Rep #: [id number] : 1970 M 54 From: Star Irwin MD PCP: Dr. Renzo Beatty DO Status: REG CLI Study: Lumbar Spine 2 or 3 Views Date of Exam: Exam# [id number] Ordering Dr: Jai Miranda MD PROCEDURE: LUMBAR SPINE 2 OR 3 VIEWS 09/21/2024 REASON FOR EXAM: S/P LUMBAR FUSION TECHNIQUE: 2 view(s) of the lumbar spine COMPARISON: 06/22/2024, 07/06/2024 and 08/03/2024 FINDINGS: From 06/22/2024 to 07/06/2024 the intervertebral disc spacer at L5-S1 migrated and was mostly extruded anteriorly. Currently the appearance of this mostly extruded intervertebral disc spacer is not significantly changed in its position from the most recent study of 08/03/2024. The disc spacing at L5-S1 appears decreased compared to that of 06/22/2024. There is again note of intervertebral disc spacers L3-4 and L4-5, left lateral anchor screws L3 and L5 and bilateral posterior fusion with transpedicular screws L3, L5 and S1 which appear intact and anatomic without fracture. There is again note of L1-2 spondylosis/discogeni c change. RAD/Lumbar Spine 2 or 3 Views IMPRESSION: See above for details. Reading Location: [facility] CC: Dr. Jai Miranda MD; Dr. Renzo Beatty DO Court Clerk: Signed Normal [facility] Orthopedic Visit Reporton Orthopedic Visit Report [facility] [address] [place] [address] OFFICE VISIT Date of Service: 09/21/24 MR#: [id number] Acct: [id number] Name: OZIEL BURTON Rep #: [id number] : 1970 Provider: Dr. Jai Miranda MD Age/Sex: 54/M Location: [facility] Status: Signed Intake Vital Signs 07/15/24 09:55 Height 5 ft 10 in Intake Visit Reasons: LUMBAR SPINE Chief Complaint: 3 month post op Allergies olmesartan medoxomil (From Benicar) Allergy (Verified 09/21/24 10:27) Itching Medications ???Medication ???Instructions ???Recorded ???Confirmed ???Type calcium 315 mg (as 2 tab PO QHS SUPPLEMENT 04/25/20 0 09/21/24 History citrate)-vitamin D3 5 mcg (200 unit) tablet (Calcium Citrate + D) multivitamin 2 cap PO DAILY SUPPLEMENT 04/25/20 09/21/24 History amlodipine 5 mg tablet 5 mg PO DAILY BP 08/04/20 09/21/24 History mecobalamin (vitamin B12) 1,000 1,500 mcg sublingual DAILY 1 09/21/24 History mcg disintegrating SUPPLEMENT tablet,sublingual metoprolol succinate 25 mg 25 mg PO DAILY BP 08/04/20 5 History tablet,extended release 24 hr pantoprazole 20 mg tablet,delayed 40 mg PO DAILY GERD 01/29/2108/27 History release (Protonix) cholecalciferol (vitamin D3) 10 10 mcg PO DAILY SUPPLEMENT 2 09/21/24 History mcg (400 unit) capsule (Vitamin D3) magnesium 1 tab PO QHS SUPPLEMENT 01/08/22 0 09/21/24 History gabapentin 100 mg capsule 100 mg PO BID PAIN 02/11/22 History aspirin 81 mg tablet,delayed 81 mg PO DAILY SUPPLEMENT 10/02/22 09/21/24 History release (Adult Aspirin Regimen) Held on 06/22/24. Instructions: Resume on 06/24/24. 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 Traumatic open wound of right lower leg Chronic wound of extremity Degenerative disc disease Varicose veins with inflammation History of hemorrhoids Hypertension GERD (gastroesophageal reflux disease) History of deep vein thrombosis History of diabetes mellitus CPAP (continuous positive airway pressure) dependence Obstructive sleep apnea Arthritis Obesity (BMI 35.0-39.9 without comorbidity) Wears glasses Alcohol use History of steroid therapy DVT (deep venous thrombosis) Back pain Gastric reflux CPAP (continuous positive airway pressure) dependence Leg cramps History of echocardiogram History of stress test Hypertension Varicose veins of right lower extremity Lab test negative for COVID-19 virus Disorder of uvula Diabetes Hemorrhoids Arthritis Surgical History History of bilateral knee arthroplasty History of root canal procedure Hx of knee surgery Hx of arthroplasty Hx of gastric bypass Hx of knee surgery Hx of colonoscopy History of tonsillectomy History of gastric restrictive surgery History of shoulder surgery History of arthroscopic knee surgery History of umbilical hernia repair History of surgical removal of ganglion cyst hx of gastric sleeve H/O shoulder surgery H/O hernia repair H/O knee surgery H/O foot surgery Deviated septum History of tonsillectomy Family History Other Breast cancer Social History Smoking Status: Current some day smoker tobacco type: cigars alcohol intake: current alcohol intake frequency: holidays/special occasions only HPI LUMBAR SPINE Details: This documentation accurately reflects the service provided and the decisions made by me, Dr. Jai Miranda MD 09/21/24 1024. Part of today???s visit was documented by Isabella RAMEY, acting as scribe. OZIEL BURTON is a 54 year old M here today for 3 month post-op, s/p lumbar fusion, dos: 06/21/24. Patient states that he is doing well but does have some days where his back is painful. Patient is wearing his bone stimulator today. He does still have the numbness and pain in the left groin. Today is his last scheduled PT visit. Ortho Exam General General: Yes no acute distress Neurologic: Yes alert and Yes oriented x3 Psychologic: Yes reasonable and appropriate Spine SPINE TESTING CERVICAL THORACIC LUMBAR Musculoskeletal Strength 0=absent - 5=normal Details: (more content not included)... Normal [facility] Re-Evaluation - PT (1)on Re-Evaluation - PT (1) [facility] Physical Therapy [facility] [address] [facility] [place] [address] / REEVALUATION / MEDICARE RECERTIFICATION PHYSICAL THERAPY MR#: [id number] Acct: [id number] Name: OZIEL BURTON Rep #: [id number] : 1970 54 From: Denzel Reyes DPT Referring Dr.: Dr. Jai Miranda MD Status:REG RCR Insurance: [employer]/[facility] SELF PAY INSURANCE Re-Evaluation Intro: Dr. Jai Miranda MD, It has been my pleasure to treat OZIEL BURTON over the last 8 visits for Lumbar fusion, DOS: 06/21/24. Please see the progress note below for an update on the physical therapy plan of care! Subjective Subjective: Pt. reports overall doing much better than he was. He still has some issues with lifting and having some good/bad days. Objective Objective/Function: ROM: lumbar spine: flexion mod loss fearful, ext mod loss, SB min loss bilat, rotation mod loss fearful. pt. has no distal symptoms. MMT: distal BLEs 5/5 throughout; R hip: flexion 4/5, abd 4/5, ext 4/5. L hip: flexion 4/5, abd 4/5, ext 4/5. Core poor+. GAIT: Pt. slight decrease in B arm swing, normal step length. STAIRS: Pt. is able to complete with 2 HR with reciprocal pattern no pain. Pt. is overall doing well. He still feels week in his BLEs and still has days where he has increased pain. Pt. reports having good days and bad days, but is having more and more good days. I would recommend that he continue to work on strengthening allow for increased stability with all daily activities. Plan Plan Plan: 1) neutral spine core activitation, progressing to dynamic stability. Progress hip and core strengthening. 3) functional LE strengthening 4) may use ice and light manual to paraspinals to reduce symptoms spasms. Balance/Gait/Function al tests Balance/Special Test Scores Oswestry Low Back Score: 16 Goals Goals Goal 1:: LTG: Pt. to be I with HEP. Goal Time Frame: 4-6 Weeks Goal Progress: Progressing Goal 2:: STG: Pt. to sleep without increase in symptoms. Goal Time Frame: 2-4 Weeks Goal Progress: Progressing Goal 3:: STG: Pt. to have no issues with sit to stand movements. Goal Time Frame: 2-4 Weeks Goal Progress: Progressing Goal 4:: LTG: to have full strength of BLEs without increase in symptoms. Goal Time Frame: 6-8 Weeks Goal Progress: Progressing Goal 5:: LTG: Pt. to ambulate unlimited distances without increase in lumbar spine pain. Goal Time Frame: 4-6 Weeks Goal Progress: Progressing Goal 6:: LTG: Pt. to report no lumbar spine pain with all functional mobility. Goal Time Frame: 6-8 Weeks Goal Progress: Progressing Anticipated Interventions Anticipated Interventions Patient/Client Instruction: Educate patient on: Condition, Plan of Care, Risk Factors and Benefits of Fitness Program For the Purpose of:: To foster healthy habits, To improve decision making, To facilitate caregiver knowledge, To improve self management, To prevent re-injury and To improve ability to perform tasks related to life management Therapeutic Exercise to Include: Strength training, Coordination, Body mechanics, Postural training, Flexibilty training, Passive ROM, Active ROM and Dynamic Lumbar Stabilization For the Purpose of:: To decrease pain, To increase ROM, To improve nutrient delivery to tissue, To increase oxygenation perfusion, To improve muscle performance and motor function, To improve ability to perform ADL's, To improve health of tissue, To decrease soft tissue restriction, To increase flexibility/ROM and To improve endurance Manual Therapy Techniques to Include: Soft tissue mobilization For the Purpose of:: To decrease pain, To increase ROM, To improve nutrient delivery to tissue and To increase oxygenation perfusion Cryotherapy (ice pack, ice massage): Yes For the Purpose of:: To decrease pain, To decrease swelling/inflammation , To increase ROM, To improve nutrient delivery to tissue and To increase oxygenation perfusion Re-Evaluation Ending Re-evaluation ending: Please do not hesitate to contact me at [phone] by phone or if you have questions or concerns regarding this new plan of care! Sincerely, Denzel Reyes, DPT 08/12/24 0720 CC: Dr. Jai Miranda MD; Dr. Renzo Beatty DO CLS Signed For Medicare only, by signing this I certify the plan of care. Physicians Signature Date Normal [facility] Lumbar Spine 2 or 3 Viewson 08-03-2024 Lumbar Spine 2 or 3 Views [facility] Imaging Services [address] [place], [place] [address] Lumbar Spine 2 or 3 Views MR#: [id number] Acct: [id number] Name: OZIEL BURTON Rep #: [id number] : 1970 M 54 From: Hernandez Armstrong i DO PCP: Dr. Renzo Beatty DO Status: REG CLI Study: Lumbar Spine 2 or 3 Views Date of Exam: Exam# [id number] Ordering Dr: Jai Miranda MD PROCEDURE: Lumbar spine radiographs, three views 08/03/2024 REASON FOR EXAM: PAIN TECHNIQUE: Three views of the lumbar spine were obtained. COMPARISON: 07/06/2024 FINDINGS: Three views of the lumbar spine were obtained. Bones are osteopenic. Included portions of the pelvis and proximal femurs are intact. Intact intrapedicular screws of L3, L5, and S1, with posterior connecting fusion rods. No acute lumbar vertebral body fracture or focal subluxation. Similar multilevel degenerative disc and facet disease in the lumbar spine. There are interbody spacer devices at L3-4 through L5-S1. There is slightly more anterior position of the interbody spacer device at the L5-S1 level compared to 06/22 24. RAD/Lumbar Spine 2 or 3 Views IMPRESSION: Osteopenia. No acute lumbar vertebral body fracture. Grossly intact intrapedicular screws and posterior fusion rods from L3-S1. Similar multilevel degenerative disc and facet disease in the lumbar spine. The interbody spacer device at the anterior margin of the L5-S1 level appears more anteriorly positioned when compared to 06/22/2024. Reading Location: [facility] CC: Dr. Jai Miranda MD; Dr. Renzo Beatty DO Court Clerk: Signed [facility] [facility] Orthopedic Visit Reporton Orthopedic Visit Report [facility] [address] [place] [address] OFFICE VISIT Date of Service: 08/03/24 MR#: [id number] Acct: [id number] Name: OZIEL BURTON Rep #: [id number] : 1970 Provider: Dr. Jai Miranda MD Age/Sex: 54/M Location: [facility] Status: Signed Intake Vital Signs 04/07/24 06:01 07/15/24 09:55 Height 5 ft 9 in 5 ft 10 in Intake Visit Reasons: lumbar spine Chief Complaint: Post op Accompanied by: Self Is patient in pain?: Yes Allergies olmesartan medoxomil (From Benicar) Allergy (Verified 08/03/24 11:00) Itching Medications ???Medication ???Instructions ???Recorded ???Confirmed ???Type calcium 315 mg (as 2 tab PO QHS SUPPLEMENT 04/25/20 0 08/03/24 History citrate)-vitamin D3 5 mcg (200 unit) tablet (Calcium Citrate + D) multivitamin 2 cap PO DAILY SUPPLEMENT 04/25/20 08/03/24 History amlodipine 5 mg tablet 5 mg PO DAILY BP 08/04/20 08/03/24 History mecobalamin (vitamin B12) 1,000 1,500 mcg sublingual DAILY 1 08/03/24 History mcg disintegrating SUPPLEMENT tablet,sublingual metoprolol succinate 25 mg 25 mg PO DAILY BP 08/04/20 5 History tablet,extended release 24 hr pantoprazole 20 mg tablet,delayed 40 mg PO DAILY GERD 01/29/21 04/12/20 History release (Protonix) cholecalciferol (vitamin D3) 10 10 mcg PO DAILY SUPPLEMENT 2 08/03/24 History mcg (400 unit) capsule (Vitamin D3) magnesium 1 tab PO QHS SUPPLEMENT 01/08/22 0 08/03/24 History gabapentin 100 mg capsule 100 mg PO BID PAIN 02/11/22 History aspirin 81 mg tablet,delayed 81 mg PO DAILY SUPPLEMENT 10/02/22 08/03/24 History release (Adult Aspirin Regimen) Held on 06/22/24. Instructions: Resume on 06/24/24. 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 Traumatic open wound of right lower leg Chronic wound of extremity Degenerative disc disease Varicose veins with inflammation History of hemorrhoids Hypertension GERD (gastroesophageal reflux disease) History of deep vein thrombosis History of diabetes mellitus CPAP (continuous positive airway pressure) dependence Obstructive sleep apnea Arthritis Obesity (BMI 35.0-39.9 without comorbidity) Wears glasses Alcohol use History of steroid therapy DVT (deep venous thrombosis) Back pain Gastric reflux CPAP (continuous positive airway pressure) dependence Leg cramps History of echocardiogram History of stress test Hypertension Varicose veins of right lower extremity Lab test negative for COVID-19 virus Disorder of uvula Diabetes Hemorrhoids Arthritis Surgical History History of bilateral knee arthroplasty History of root canal procedure Hx of knee surgery Hx of arthroplasty Hx of gastric bypass Hx of knee surgery Hx of colonoscopy History of tonsillectomy History of gastric restrictive surgery History of shoulder surgery History of arthroscopic knee surgery History of umbilical hernia repair History of surgical removal of ganglion cyst hx of gastric sleeve H/O shoulder surgery H/O hernia repair H/O knee surgery H/O foot surgery Deviated septum History of tonsillectomy Family History Other Breast cancer Social History Smoking Status: Current some day smoker tobacco type: cigars alcohol intake: current alcohol intake frequency: holidays/special occasions only HPI lumbar spine Details: This documentation accurately reflects the service provided and the decisions made by me, Dr. Jai Miranda MD 08/03/24 1056. Part of today???s visit was documented by [ ], acting as scribe. OZIEL BURTON is a 54 year old M here today for s/p 360 lumbar fusion dos 06/21/24. Patient notes that he has good and bad days. Patient complains of pain and numbness into his left groin. He notes that he is doing physical therapy which is going well. Patient notes that he wears his bone stim every day for 2 hours. Patient had xrays at [facility] which are here for review. Ortho Exam General General: Yes no acute distress Neurologic: Yes alert and Yes oriented x3 Psycho (more content not included)... Normal [facility] Venous duplex ultrasound rep ortOrdered By: Edson Noguera on 07-16-2024 US Vein [facility] [address] [place] [address] Venous Duplex US - Mo Extrem 07/15/24 1049 MR#: [id number] Acct: [id number] Name: OZIEL BURTON Rep #:[id number] : 1970 54 From: Edson Noguera MD Attending Dr: Eden Sorto, [employer] Status: REG CLI Ordering Dr: Eden Sorto [employer] Date: 07/15/24 Location: [facility] Sex: M C Admitted: Reason For Study Reason For Study: Bilateral leg pain RIGHT LEFT GSV is normal. GSV is normal. CFV is compressible, spontaneous, phasic, competent CFV is compressible, spontaneous, phasic, competent, and demonstrates normal augmentation. and demonstrates normal augmentation. FV is compressible, spontaneous, phasic, competent FV is compressible, spontaneous, phasic, competent and demonstrates normal augmentation. and demonstrates normal augmentation. POP V is compressible, spontaneous, phasic, competent POP V is compressible, spontaneous, phasic, competent and demonstrates normal augmentation. and demonstrates normal augmentation. T/P Trunk is compressible. T/P Trunk is compressible. PTV is compressible. PTV is compressible. RT PerV is compressible. LT PerV is compressible. Procedure This is a venous duplex using B-mode, color flow and spectral Doppler. Exam performed in department. A preliminary report was called and/or faxed to Mac[facility]. VL/Venous Duplex US - Mo Extrem Interpretation Summary Deep veins of the lower extremities are bilaterally patent and compressible segmentally. There is no evidence of deep vein thrombosis on either side. Valvular competence appears intact within the proximal deep venous systems bilaterally. The great saphenous veins appear bilaterally patent and compressible segmentally. Ordering Physician: Eden Sorto Referring Physician: Renzo Beatty Performed By: Adrienne Marshall RVT 07/16/241906 Date _ Edson Noguera MD CC: ELEAZAR Sorto; Dr. Renzo Beatty DO ~ Date Dictated: 07/15/24 1049 Date Transcribed: 07/16/241906 Court Clerk: Signed [facility] Work Phone: Orthopedic Visit Reporton Orthopedic Visit Report [facility] [address] [place] [address] OFFICE VISIT Date of Service: 07/15/24 MR#: [id number] Acct: [id number] Name: OZIEL BURTON Rep #: [id number] : 1970 Provider: ELEAZAR singh Age/Sex: 54/M Location: [facility] Status: Signed Intake Vital Signs 07/06/24 10:57 07/15/24 09:55 Height 5 ft 10 in 5 ft 10 in Weight: 260 lb BMI 37.3 Intake Visit Reasons: LUMBAR SPINE Chief Complaint: Post op Is patient in pain?: Yes Pain scale (1-10): 3 Allergies olmesartan medoxomil (From Benicar) Allergy (Verified 07/15/24 09:56) Itching Medications ???Medication ???Instructions ???Recorded ???Confirmed ???Type calcium 315 mg (as 2 tab PO QHS SUPPLEMENT 04/25/20 0 07/15/24 History citrate)-vitamin D3 5 mcg (200 unit) tablet (Calcium Citrate + D) multivitamin 2 cap PO DAILY SUPPLEMENT 04/25/20 07/15/24 History amlodipine 5 mg tablet 5 mg PO DAILY BP 08/04/20 07/15/24 History mecobalamin (vitamin B12) 1,000 1,500 mcg sublingual DAILY 1 07/15/24 History mcg disintegrating SUPPLEMENT tablet,sublingual metoprolol succinate 25 mg 25 mg PO DAILY BP 08/04/20 5 History tablet,extended release 24 hr pantoprazole 20 mg tablet,delayed 40 mg PO DAILY GERD 01/29/2106/27 History release (Protonix) cholecalciferol (vitamin D3) 10 10 mcg PO DAILY SUPPLEMENT 2 07/15/24 History mcg (400 unit) capsule (Vitamin D3) magnesium 1 tab PO QHS SUPPLEMENT 01/08/22 0 07/15/24 History gabapentin 100 mg capsule 100 mg PO BID PAIN 02/11/22 History aspirin 81 mg tablet,delayed 81 mg PO DAILY SUPPLEMENT 10/02/22 07/15/24 History release (Adult Aspirin Regimen) Held on 06/22/24. Instructions: Resume on 06/24/24. fiber 2 cap PO QHS SUPPLEMENT 02/03/24 0 07/15/24 History trazodone 50 mg tablet 100 mg PO QHS to sleep through the 02/03/24 07/15/24 History night amoxicillin 500 mg tablet 2,000 mg (4 x 500 mg) PO ONCE 03/2907/15/24 Rx DENTAL PROCEDURES #4 tabs acetaminophen 500 mg tablet 500 mg PO Q6H #30 tabs 06/22/24 Rx meloxicam 15 mg tablet 15 mg PO DAILY #30 tabs 06/22/24 0 07/15/24 Rx sennosides 8.6 mg-docusate sodium 2 tab PO BID PRN constipation #30 06/22/24 07/15/24 Rx 50 mg tablet (Stimulant Laxative tabs Plus) oxycodone 5 mg tablet 2.5 - 5 mg (0.5 - 1 x 5 mg) PO Q6H 07/02/24 07/15/24 Rx PRN pain 7 days #28 tabs methocarbamol 500 mg tablet 750 mg (1.5 x 500 mg) PO TID PRN 0 07/06/24 07/15/24 Rx pain/spasms #30 tabs Have you fallen in the past year?: No PFSH Medical History History of edema Tendinosis of left shoulder Strain of right hand Smoker Acute bronchitis, unspecified Contact with and (suspected) exposure to other viral communicable diseases 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 Traumatic open wound of right lower leg Chronic wound of extremity Degenerative disc disease Varicose veins with inflammation History of hemorrhoids Hypertension GERD (gastroesophageal reflux disease) History of deep vein thrombosis History of diabetes mellitus CPAP (continuous positive airway pressure) dependence Obstructive sleep apnea Arthritis Obesity (BMI 35.0-39.9 without comorbidity) Wears glasses Alcohol use History of steroid therapy DVT (deep venous thrombosis) Back pain Gastric reflux CPAP (continuous positive airway pressure) dependence Leg cramps History of echocardiogram History of stress test Hypertension Varicose veins of right lower extremity Lab test negative for COVID-19 virus Disorder of uvula Diabetes Hemorrhoids Arthritis Surgical History History of bilateral knee arthroplasty History of root canal procedure Hx of knee surgery Hx of arthroplasty Hx of gastric bypass Hx of knee surgery Hx of colonoscopy History of tonsillectomy History of gastric restrictive surgery History of shoulder surgery History of arthroscopic knee surgery History of umbilical hernia repair History of surgical removal of ganglion cyst hx of gastric sleeve H/O shoulder surgery H/O hernia repair H/O knee surgery H/O foot surgery Deviated septum History of tonsillectomy Family History Other Breast cancer Social History Smoking Status: Current some day smoker tobacco type: cigars alcohol intake: current alcohol intake frequency: holidays/special occasions only HPI LUMBAR SPINE Details: This documentation accurately reflects the servic (more content not included)... Normal [facility] Venous Duplex US - Mo Extre mon 07-15-2024 Venous Duplex US - Mo Extrem [facility] [address] [place] [address] Venous Duplex US - Mo Extrem 07/15/24 1049 MR#: [id number] Acct: [id number] Name: OZIEL BURTON Rep #: [id number] : 1970 54 From: Edson Noguera MD Attending Dr: Eden Sorto [employer] Status: REG CLI Ordering Dr: Eden Sorto [employer] Date: 07/15/24 Location: [facility] Sex: M C Admitted: Reason For Study Reason For Study: Bilateral leg pain RIGHT LEFT GSV is normal. GSV is normal. CFV is compressible, spontaneous, phasic, competent CFV is compressible, spontaneous, phasic, competent, and demonstrates normal augmentation. and demonstrates normal augmentation. FV is compressible, spontaneous, phasic, competent FV is compressible, spontaneous, phasic, competent and demonstrates normal augmentation. and demonstrates normal augmentation. POP V is compressible, spontaneous, phasic, competent POP V is compressible, spontaneous, phasic, competent and demonstrates normal augmentation. and demonstrates normal augmentation. T/P Trunk is compressible. T/P Trunk is compressible. PTV is compressible. PTV is compressible. RT PerV is compressible. LT PerV is compressible. Procedure This is a venous duplex using B-mode, color flow and spectral Doppler. Exam performed in department. A preliminary report was called and/or faxed to [facility]. VL/Venous Duplex US - Mo Extrem Interpretation Summary Deep veins of the lower extremities are bilaterally patent and compressible segmentally. There is no evidence of deep vein thrombosis on either side. Valvular competence appears intact within the proximal deep venous systems bilaterally. The great saphenous veins appear bilaterally patent and compressible segmentally. Ordering Physician: Eden Sorto Referring Physician: Renzo Beatty Performed By: Adrienne Marshall, T 07/16/241906 Date Edson Noguera MD CC: ELEAZAR Sorto; Dr. Renzo Beatty, Date Dictated: 07/15/24 1049 Date Transcribed: 07/16/241906 Court Clerk: Signed Normal [facility] Inital Evaluation (1) - PTon 07-14-2024 Inital Evaluation (1) - PT [facility] Physical Therapy [address] [place] [address] / REHABILITATION SERVICES INITIAL EVALUATION MR#: [id number] Acct: [id number] Name: OZIEL BURTON Rep #: [id number] : 1970 54 From: Denzel Reyes DPT Referring Dr.: Dr. Jai Miranda MD Status: REG RCR Insurance: [employer] SELF PAY INSURANCE Patient's Visit Information Visit Information Visit Information: OZIEL BURTON is a 54 year old M referred to Physical Therapy by Dr. Jai Miranda MD with a diagnosis of Lumbar fusion, DOS: 06/21/24. Date of Evaluation: 07/12/24 Physical Therapist: Denzel Reyes DPT Visit Plan Frequency: 2x /Week Duration: 6 Weeks Plan: 1) neutral spine core activitation, progressing to dynamic stability. 2) walking program 3) functional LE strengthening 4) may use ice and light manual to paraspinals to reduce symptoms spasms. Subjective Subjective: Pt. is here today for his initial evaluation with diagnosis of his initial evaluation with diagnosis of lumbar fusion L3-S1. Pt. arrives with reports overall doing better, but is still having some pain at his anterior L flank and in B hips. Pt. reports increased pain with getting up and down from sitting. No N/T noted in either LE. Pt. reports no distal LE pain. Pt. is wearing a bone stimulator and is wear for the next 6-8 weeks. Pt. reports overall pleased thus far. He is to refrain from bending, twisting and lifting. Pt. is sleeping well. He is very apprehensive with movements. Pt. is hopeful to reduce symptoms and get back to all recreational activities without limitations. Pt. does report a hard feeling at his L anterior flank, but is unsure if this is new or not. Pain Lumbar spine: Pain Intensity (Out of 10): 4 Pain Intensity Range: 2 and 7 L flank: Pain Intensity (Out of 10): 1 Pain Intensity Range: 0 and 4 Objective Objective: POSTURE: Pt. has decent posture in stance. Pt. does not have a major shift noted. PALPATION: Pt. has good healing incisions, no signs of infection. Pt. does have a more firm tissue close to his anterior incision, possible scar tissue, not sure. Pt reports that it is a little bit sore. NEURO: normal throughout. ROM: LUMABR SPINE: Pt. has very limited ROM throughout lumbar spine. Pt. has tightness in B HS, but has tight B hip ER ROM as well. MMT: BLE: pt. has 5/5 strength in distal LEs. No myotomal weakness noted. Pt. has 4/5 B hip strength throughout. Pt. has decent TA contraction in supine. Pt. had no pain with LE strength testing. GAIT: Pt. has marked guarded posture with gait, limited arm swing. Pt. does not have increased pain with walking. STAIRS: Pt. has normal reciprocal pattern with use of B HR. Balance/Special Test Scores Oswestry Low Back Score: 16 Goals Goal 1:: LTG: Pt. to be I with HEP. Goal Time Frame: 4-6 Weeks Goal 2:: STG: Pt. to sleep without increase in symptoms. Goal Time Frame: 2-4 Weeks Goal 3:: STG: Pt. to have no issues with sit to stand movements. Goal Time Frame: 2-4 Weeks Goal 4:: LTG: to have full strength of BLEs without increase in symptoms. Goal Time Frame: 6-8 Weeks Goal 5:: LTG: Pt. to ambulate unlimited distances without increase in lumbar spine pain. Goal Time Frame: 4-6 Weeks Goal 6:: LTG: Pt. to report no lumbar spine pain with all functional mobility. Goal Time Frame: 6-8 Weeks Rehabilitation Potential Physical Therapy Diagnosis: Pt. has signs and symptoms consistent with lumbar fusion with DOS: 06/21/24. Pt. has marked hypomobility, weakness, increased pain and difficulty with functional mobility. Pt. would benefit from PT to address the above limitations progressing back to all previous levels of function. Rehabilitation Potential: Excellent Anticipated Interventions Patient/Client Instruction: Educate patient on: Condition, Plan of Care, Risk Factors and Benefits of Fitness Program For the Purpose of:: To foster healthy habits, To improve decision making, To facilitate caregiver knowledge, To improve self management, To prevent re-injury and To improve ability to perform tasks related to life management Therapeutic Exercise to Include: Strength training, Coordination, Body mechanics, Postural training, Flexibilty training, Passive ROM, Active ROM and Dynamic Lumbar Stabilization For the Purpose of:: To decrease pain, To increase ROM, To improve nutrient delivery to tissue, To increase oxygenation perfusion, To improve muscle performance and motor function, To improve ability to perform ADL's, To improve health of tissue, To decrease soft tissue restriction, To increase flexibility/ROM and To improve endurance Manual Therapy Techniques to Include: Soft tissue mobilization For the Purpose of:: To decrease pain, To increase ROM, To improve nutrient delivery to tissue and To increase oxygenation perfusion Cryot (more content not included)... Normal [facility] Lumbar Spine 2 or 3 Viewson 07-06-2024 Lumbar Spine 2 or 3 Views [facility] Imaging Services [address] [address] Lumbar Spine 2 or 3 Views MR#: [id number] Acct: [id number] Name: OZIEL BURTON Rep #: [id number] : 1970 M 54 From: Renzo Newby MD PCP: Dr. Renzo Beatty DO Status: REG CLI Study: Lumbar Spine 2 or 3 Views Date of Exam: Exam# [id number] Ordering Dr: Yesenia Coy EXAM: XR Lumbosacral Spine, 2 or 3 Views CLINICAL INDICATION: S/P FUSION TECHNIQUE: Frontal and lateral views of the lumbar spine and sacrum. COMPARISON: No relevant prior studies available. FINDINGS: VERTEBRAE: Unremarkable. No acute fracture. Normal alignment. SACRUM/COCCYX: Unremarkable as visualized. No acute fracture. DISC SPACES: Status post posterior fusion L3-S1 with disc spacers. Intact hardware. Anatomic position. SOFT TISSUES: Unremarkable. RAD/Lumbar Spine 2 or 3 Views IMPRESSION: Postoperative changes as above. Reading Location: [facility] CC: MOUSTAPHA Montoya; Dr. Renzo Beatty DO Court Clerk: Signed Normal [facility] Orthopedic Visit Reporton Orthopedic Visit Report [facility] [place] [facility] [address] [place], [place] [id number] OFFICE VISIT Date of Service: 07/06/24 MR#: [id number] Acct: [id number] Name: OZIEL BURTON Rep #: [id number] : 1970 Provider: MOUSTAPHA Montoya Age/Sex: 54/M Location: [facility] Status: Signed Intake Vital Signs 04/07/24 06:01 06/21/24 17:04 07/06/24 10:57 Height 5 ft 9 in 5 ft 10 in 5 ft 10 in Intake Visit Reasons: lumbar spine Chief Complaint: 2 week post op Accompanied by: Is patient in pain?: Yes Pain scale (1-10): 2 Allergies olmesartan medoxomil (From Benicar) Allergy (Verified 07/06/24 10:58) Itching Medications ???Medication ???Instructions ???Recorded ???Confirmed ???Type calcium 315 mg (as 2 tab PO QHS SUPPLEMENT 04/25/20 0 07/06/24 History citrate)-vitamin D3 5 mcg (200 unit) tablet (Calcium Citrate + D) multivitamin 2 cap PO DAILY SUPPLEMENT 04/25/20 07/06/24 History amlodipine 5 mg tablet 5 mg PO DAILY BP 08/04/20 07/06/24 History mecobalamin (vitamin B12) 1,000 1,500 mcg sublingual DAILY 1 07/06/24 History mcg disintegrating SUPPLEMENT tablet,sublingual metoprolol succinate 25 mg 25 mg PO DAILY BP 08/04/20 5 History tablet,extended release 24 hr pantoprazole 20 mg tablet,delayed 40 mg PO DAILY GERD 01/29/2106/26 History release (Protonix) cholecalciferol (vitamin D3) 10 10 mcg PO DAILY SUPPLEMENT 2 07/06/24 History mcg (400 unit) capsule (Vitamin D3) magnesium 1 tab PO QHS SUPPLEMENT 01/08/22 0 07/06/24 History gabapentin 100 mg capsule 100 mg PO BID PAIN 02/11/22 History aspirin 81 mg tablet,delayed 81 mg PO DAILY SUPPLEMENT 10/02/22 07/06/24 History release (Adult Aspirin Regimen) Held on 06/22/24. Instructions: Resume on 06/24/24. fiber 2 cap PO QHS SUPPLEMENT 02/03/24 0 07/06/24 History trazodone 50 mg tablet 100 mg PO QHS to sleep through the 02/03/24 07/06/24 History night amoxicillin 500 mg tablet 2,000 mg (4 x 500 mg) PO ONCE 03/2907/06/24 Rx DENTAL PROCEDURES #4 tabs acetaminophen 500 mg tablet 500 mg PO Q6H #30 tabs 06/22/24 Rx meloxicam 15 mg tablet 15 mg PO DAILY #30 tabs 06/22/24 0 07/06/24 Rx sennosides 8.6 mg-docusate sodium 2 tab PO BID PRN constipation #30 06/22/24 07/06/24 Rx 50 mg tablet (Stimulant Laxative tabs Plus) oxycodone 5 mg tablet 2.5 - 5 mg (0.5 - 1 x 5 mg) PO Q6H 07/02/24 07/06/24 Rx PRN pain 7 days #28 tabs methocarbamol 500 mg tablet 750 mg (1.5 x 500 mg) PO TID PRN 0 07/06/24 07/06/24 Rx pain/spasms #30 tabs Have you fallen in the past year?: No PFSH Medical History History of edema Tendinosis of left shoulder Strain of right hand Smoker Acute bronchitis, unspecified Contact with and (suspected) exposure to other viral communicable diseases 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 Traumatic open wound of right lower leg Chronic wound of extremity Degenerative disc disease Varicose veins with inflammation History of hemorrhoids Hypertension GERD (gastroesophageal reflux disease) History of deep vein thrombosis History of diabetes mellitus CPAP (continuous positive airway pressure) dependence Obstructive sleep apnea Arthritis Obesity (BMI 35.0-39.9 without comorbidity) Wears glasses Alcohol use History of steroid therapy DVT (deep venous thrombosis) Back pain Gastric reflux CPAP (continuous positive airway pressure) dependence Leg cramps History of echocardiogram History of stress test Hypertension Varicose veins of right lower extremity Lab test negative for COVID-19 virus Disorder of uvula Diabetes Hemorrhoids Arthritis Surgical History History of bilateral knee arthroplasty History of root canal procedure Hx of knee surgery Hx of arthroplasty Hx of gastric bypass Hx of knee surgery Hx of colonoscopy History of tonsillectomy History of gastric restrictive surgery History of shoulder surgery History of arthroscopic knee surgery History of umbilical hernia repair History of surgical removal of ganglion cyst hx of gastric sleeve H/O shoulder surgery H/O hernia repair H/O knee surgery H/O foot surgery Deviated septum History of tonsillectomy Family History Other Breast cancer Social History Smoking Status: Current some day smoker tobacco type: cigars alcohol intake: current alcohol intake frequency: holidays/special occasions only HPI lumbar spine Details: This documentation accuratel (more content not included)... Normal [facility] Basic Metabolic Profile (BMP )on 06-22-2024 BUN/CRE 13.1 RATIO Normal 10-20 [facility] Comment on above: Performed By: #### L 500.2500, L100.0500 ####[facility] [id number] [place], [address] CA,Total 8.7 mg/dL Normal 8.5-10.1 [facility] Comment on above: Performed By: #### L 500.2500, L100.0500 ####[facility] [address] [place], [address] ECRCL 99.98 ml/min Normal [facility] Comment on above: Performed By: #### L 500.2500, L100.0500 ####[facility] [address] [place], [address] EST GFR - AA 92 mL/min Normal >60 [facility] Comment on above: Result Comment: Afri can Brazilian GFR Calc Performed By: #### L 500.2500, L100.0500 ####[facility] [address] [place], [address] GAP 8 Normal 5-15 [facility] Comment on above: Performed By: #### L 500.2500, L100.0500 ####[facility] [address] [place], [address] Blood urea nitrogen (BUN)/cr eatinine ratioOrdered By: Yesenia Coy on 06-22-2024 Urea nitrogen/Creatinine [Mass ratio] 13.1 mg/mg 10-20 [facility] CBC-Complete Blood Cnt No Di ffon 06-22-2024 Erythrocyte distribution width (RBC) [Ratio] 13.0 % Normal 11.6-14.6 [facility] Comment on above: Performed By: #### L 500.2500, L100.0500 ####[facility] [address] [place], [address] Hematocrit (Bld) [Volume fraction] 39.7 % Low 40-54 [facility] Comment on above: Performed By: #### L 500.2500, L100.0500 ####[facility] [address] [place], [address] Hemoglobin (Bld) [Mass/Vol] 13.2 g/dL Normal 13.0-16.5 [facility] Comment on above: Performed By: #### L 500.2500, L100.0500 ####[facility] [address] [place], [address] MCH (RBC) [Entitic mass] 29.4 pg Normal 27.0-32.0 [facility] Comment on above: Performed By: #### L 500.2500, L100.0500 ####[facility] [address] [place], [address] MCHC (RBC) [Mass/Vol] 33.2 g/dL Normal 32-36 [facility] Comment on above: Performed By: #### L 500.2500, L100.0500 ####[facility] [address] [place], [address] MCV (RBC) [Entitic vol] 88.4 fL Normal 80-94 [facility] Comment on above: Performed By: #### L 500.2500, L100.0500 ####[facility] [address] [place], [address] Platelet mean volume (Bld) [Entitic vol] 10.7 fL Normal 6.2-12.0 [facility] Comment on above: Performed By: #### L 500.2500, L100.0500 ####[facility] [address] [place], [address] Platelets (Bld) [#/Vol] 194 10*3/uL Normal 150-450 [facility] Comment on above: Performed By: #### L 500.2500, L100.0500 ####[facility] [address] [place], [address] RBC (Bld) [#/Vol] 4.49 10*6/uL Low 4.6-6.2 [facility] Comment on above: Performed By: #### L 500.2500, L100.0500 ####[facility] [address] [place], [address] RDW SD 42.0 fl Normal 35.1-43.9 [facility] Comment on above: Performed By: #### L 500.2500, L100.0500 ####[facility] [address] [place], [address] WBC (Bld) [#/Vol] 10.4 10*3/uL Normal 4.4-11.0 [facility] Comment on above: Performed By: #### L 500.2500, L100.0500 ####[facility] [address] [place], [address] Carbon dioxide measurementOr dered By: Yesenia Coy on 06-22-2024 CO2 [Moles/Vol] 24.0 mmol/L Normal 21.0-32.0 [facility] Comment on above: Performed By: #### L 500.2500, L100.0500 ####[facility] [address] [place], [address] Chloride measurementOrdered By: Yesenia Coy on 06-22-2024 Chloride [Moles/Vol] 107 mmol/L Normal 98-107 [facility] Comment on above: Performed By: #### L 500.2500, L100.0500 ####[facility] [address] [place], [address] Erythrocyte distribution wid th ratioOrdered By: Yesenia Coy on 06-22-2024 Erythrocyte distribution width (RBC) [Ratio] 13.0 % 11.6-14.6 [facility] Erythrocyte distribution wid th standard deviationOrdered By: Yesenia Coy on 06-22-2024 Erythrocyte distribution width (RBC) [Entitic vol] 42.0 fL 35.1-43.9 [facility] Erythrocyte distribution width (RBC) [Ratio] 42.0 fl 35.1-43.9 [facility] Estimated glomerular filtrat ion rate (GFR) AmericanOrdered By: Yesenia Coy on 06-22-2024 Estimated GFR (MDRD) Amer 92 mL/min >60 [facility] Comment on above: GFR Calc Estimation of creatinine isac aranceOrdered By: Yesenia Coy on 06-22-2024 Estimated Creatinine Clearance Calc 99.98 ml/min [facility] Glomerular filtration rate ( GFR) estimationOrdered By: Yesenia Coy on 06-22-2024 Estimated GFR (MDRD) Non-Af Amer 76 mL/min >60 [facility] Comment on above: Non- GFR Calc GFR/1.73 sq M.predicted among non-blacks MDRD (S/P/Bld) [Vol rate/Area] 76 mL/min/{1.73_m2} Normal >60 [facility] Comment on above: Non- GFR Calc Result Comment: Non- GFR Calc Performed By: #### L 500.2500, L100.0500 ####[facility] [address] [facility] [place], [address] Glucose measurementOrdered B y: Yesenia Coy on 06-22-2024 Glucose [Mass/Vol] 126 mg/dL High 74-106 [facility] Comment on above: Fasting Glucose resu lt greater than or equal to 126 mg/dL suggests DIABETES MELLITUS per A.D.A. criteria. Result Comment: Fast ing Glucose result greater than or equal to 126 mg/dL suggests DIABETES MELLITUS per A.D.A. criteria. Performed By: #### L 500.2500, L100.0500 ####[facility] [address] [place], [place], [address] Hematocrit Auto (Bld) [Volum e fraction]Ordered By: Yesenia Coy on 06-22-2024 Hematocrit (Bld) [Volume fraction] 39.7 % Low 40-54 [facility] Hemoglobin measurementOrdere d By: Yesenia Coy on 06-22-2024 Hemoglobin (Bld) [Mass/Vol] 13.2 g/dL 13.0-16.5 [facility] Lumbar Spine 2 or 3 Viewson 06-22-2024 Lumbar Spine 2 or 3 Views [facility] Imaging Services [address] [place], [place] [address] Lumbar Spine 2 or 3 Views MR#: [id number] Acct: [id number] Name: OZIEL BURTON Rep #: [id number] : 1970 M 54 From: Thor tolbert MD PCP: Dr. Renzo Beatty DO Status: ADM IN Study: Lumbar Spine 2 or 3 Views Date of Exam: Exam# [id number] Ordering Dr: Yesenia Coy PROCEDURE: LUMBAR SPINE 2 OR 3 VIEWS REASON FOR EXAM: Status post lumbar fusion. TECHNIQUE: 2 view(s) of the lumbar spine COMPARISON: Comparison is made with prior intraoperative imaging dated June 21, 2024. FINDINGS: The patient is status post intrapedicular screw fixation at the L3 level as well as at the L5-S1 level with intrapedicular screw fixation and gillian fixation device. Prosthetic discs are seen at the L3-L4, L4-L5 and L5-S1 levels. RAD/Lumbar Spine 2 or 3 Views IMPRESSION: Status post multilevel fusion with prosthetic disc. Reading Location: [id number] CC: MOUSTAPHA Montoya; Dr. Renzo Beatty DO Court Clerk: Signed Normal [facility] MCV (mean corpuscular volume ) determinationOrdered By: Yesenia Coy on 06-22-2024 MCV (RBC) [Entitic vol] 88.4 fL 80-94 [facility] Mean corpuscular hemoglobin (MCH) determinationOrdered By: Yesenia Coy on 06-22-2024 MCH (RBC) [Entitic mass] 29.4 pg 27.0-32.0 [facility] Mean corpuscular hemoglobin concentration (MCHC) determinationOrdered By: Yesenia Coy on 06-22-2024 MCHC (RBC) [Mass/Vol] 33.2 g/dL 32-36 [facility] Mean platelet volume determi nationOrdered By: Yesenia Coy on 06-22-2024 Platelet mean volume (Bld) [Entitic vol] 10.7 fL 6.2-12.0 [facility] Platelet countOrdered By: Luisa Coy on 06-22-2024 Platelets (Bld) [#/Vol] 194 10*3/uL 150-450 [facility] Potassium measurementOrdered By: Yesenia Coy on 06-22-2024 Potassium [Moles/Vol] 4.0 mmol/L Normal 3.5-5.1 [facility] Comment on above: Performed By: #### L 500.2500, L100.0500 ####[facility] [address] [place], [place], [address] RBC Auto (Bld) [#/Vol]Ordere d By: Yesenia Coy on 06-22-2024 RBC (Bld) [#/Vol] 4.49 10*6/uL Low 4.6-6.2 [facility] Serum anion gap measurementO rdered By: Yesenia Coy on 06-22-2024 Anion gap [Moles/Vol] 8 mmol/L 5-15 [facility] Serum or plasma calcium chel urement (mass/volume)Ordered By: Yesenia Coy on 06-22-2024 Calcium [Mass/Vol] 8.7 mg/dL 8.5-10.1 [facility] Serum or plasma creatinine m easurement (mass/volume)Ordered By: Yesenia Coy on 06-22-2024 Creatinine [Mass/Vol] 1.07 mg/dL Normal 0.70-1.30 [facility] Comment on above: The validity of the calculated GFR & GFRAA in patients over 70 years has not been determined. Clinical correlation is essential. Result Comment: The validity of the calculated GFR GFRAA in patients over 70 years has not been determined. Clinical correlation is essential. Performed By: #### L 500.2500, L100.0500 ####[facility] [address] [place], [address] Serum or plasma urea nitroge n measurement (mass/volume)Ordered By: Yesenia Coy on 06-22-2024 Urea nitrogen [Mass/Vol] 14 mg/dL Normal 7-18 [facility] Comment on above: Performed By: #### L 500.2500, L100.0500 ####[facility] [address], [address] Sodium levelOrdered By: Niyah Coy on 06-22-2024 Sodium [Moles/Vol] 139 mmol/L Normal 136-145 [facility] Comment on above: Performed By: #### L 500.2500, L100.0500 ####[facility] [address], [address] White blood cell (WBC) count Ordered By: Yesenia Coy on 06-22-2024 WBC (Bld) [#/Vol] 10.4 10*3/uL 4.4-11.0 [facility] Bedside Glucoseon 06-21-2024 FINGERSTICK GLU 73 mg/dL Low 74-106 [facility] Comment on above: Result Comment: RADHA WALLER OF PATIENT CARE PER NURSING PROTOCOL Performed By: #### L 4600.0100, L505.7010, L101.9900, L501.1400, L501.6710 #### [facility] Laboratory [address], [address] [facility] clairi deOrdered By: Jai Miranda on 06-21-2024 Bedside Glucose (Misc Panel) 73 mg/dL Low 74-106 [facility] Comment on above: MANAGEMENT OF PATIEN T CARE PER NURSING PROTOCOL Glucose [Mass/Vol] 73 mg/dL Low 74-106 [facility] Comment on above: MANAGEMENT OF PATIEN T CARE PER NURSING PROTOCOL Lumbar Spine 2 or 3 Viewson 06-21-2024 Lumbar Spine 2 or 3 Views [facility] Imaging Services [address] [place] [address] Lumbar Spine 2 or 3 Views MR#: [id number] Acct: [id number] Name: OZIEL BURTON Rep #: [id number] : 1970 M 54 From: Gonsalo Morales MD PCP: Dr. Renzo Beatty DO Status: ADM IN Study: Lumbar Spine 2 or 3 Views Date of Exam: Exam# [id number] Ordering Dr: Jai Miranda MD EXAM: INTRAOPERATIVE FLUOROSCOPY CLINICAL HISTORY: 360 lumbar fusion L3/4 L4/5 and L5/S1 COMPARISON: None TECHNIQUE: 4 intraoperative images are submitted for review. FINDINGS: The patient is status post laminectomy and posterior fusion utilizing multi screw and rods at the L3/4, L4/5 and L5/S1 levels RAD/Lumbar Spine 2 or 3 Views IMPRESSION: As above Reading Location: [facility] CC: Dr. Jai Miranda MD; Dr. Renzo Beatty DO Court Clerk: Signed [facility] MR/POSTOP.ANE 06-21-2024 MR/POSTOP.[facility] Medical Records Department [address] [place] [address] Anesthesia Postop Eval I 06/21/24 1435 MR#: [id number] Acct: [id number] Name: OZIEL BURTON Rep #: [id number] : 1970 54 From: Rimma Donnelly CRNA PCP: Dr. Renzo Beatty DO Status:ADM IN Y Race: C Location: [place] [address] Anesthesia: Postop Eval I Current Vital Signs Temperature: 9.2 F Pulse Rate: 63 Blood Pressure: 141/64 Respiratory Rate: 14 Pulse Ox: 98 Oxygen Delivery Method: Simple Mask Assessment Airway patent: Yes Spontaneous unlabored respirations: Yes Mental status: Awake nausea: No Vomiting: No Anesthesia Complication: No Fluid Hydration Crystalloid volume administer (ml): 2,500 Total IV fluid infused: 2,500 Progress Note Anesthesia document: Postop Eval 1 completed: Yes 06/21/24 1436 Date Rimma Donnelly INSPECTOR AUTOMATIC TYPEWRITER Cosigner Signature: Date CC: Signed Normal [facility] MR/IOYSSRBZ6mm 06-21-2024 [facility] Medical Records Department [address] [place] [address] Anesthesia Postop Eval II 06/21/24 1525 MR#: [id number] Acct: [id number] Name: OZIEL BURTON Rep #: [id number] : 1970 54 From: Cesar Christy MD PCP: Dr. Renzo Beatty, DO Status:ADM IN Y Race: C Location: [place] [address] Anesthesia Postop Eval I Sum Postop Eval Completion status Anesthesia document: Postop Eval 1 completed: Yes Anesthesia Postop Eval I Summary Anesthesia Postop Eval I Summary: Anesthesia Postop Eval I: Assessment Summary Airway patent Yes 06/21/24 14:36 INSPECTOR AUTOMATIC TYPEWRITER.HBARR Spontaneous unlabored Yes 06/21/24 14:36 INSPECTOR AUTOMATIC TYPEWRITER.HBARR respirations Mental status Awake 06/21/24 14:36 INSPECTOR AUTOMATIC TYPEWRITER.HBARR nausea No 06/21/24 14:36 INSPECTOR AUTOMATIC TYPEWRITER.HBARR Vomiting No 06/21/24 14:36 INSPECTOR AUTOMATIC TYPEWRITER.HBARR Anesthesia Postop Eval I: Fluid Summary Crystalloid volume administer 2,500 06/21/24 14:36 INSPECTOR AUTOMATIC TYPEWRITER.HBARR (ml) Colloids volume administered ( ml) Blood Product volume administered (ml) Total IV fluid infused 2,500 06/21/24 14:36 INSPECTOR AUTOMATIC TYPEWRITER.HBARR Anesthesia Postop Eval I: Summary Notes Anesthesia Complication No 06/21/24 14:36 INSPECTOR AUTOMATIC TYPEWRITER.HBARR Anesthesia Complication Comment: Post-operative progress note Anesthesia: Postop Eval II Evaluation Mental status: Awake and Calm Pain Level: 4 nausea: No Vomiting: No Complications Anesthesia Complication: No 06/21/24 1525 Date Cesar Christy MD Cosigner Signature: Date CC: Signed Normal [facility] Operative Reporton Operative Report [facility] Medical Records Department [address] [place] [address] Operative Report 06/21/24 1633 MR#: [id number] Acct: [id number] Name: JANYOZIEL MAJOR VEL Rep #: [id number] : 1970 54 From: Mayco Johnson MD PCP: Dr. Renzo Beatty, DO Status:ADM IN [id number] Operative Report (Standard) Operative Information Date of Procedure: 06/21/24 Pre-Operative Diagnosis: Preoperative diagnosis: L5-S1 spondylolisthesis, L3-S1 disc degeneration, stenosis with neurogenic claudication Post-Operative Diagnosis: Same Surgery/Procedure Performed: L3-S1 oblique lumbar interbody fusion (OLIF), minimally invasive left sided approach, lateral decubitus: ??? L3-4 anterolateral spinal fusion 83536 ??? L4-5 anterolateral fusion 59226/51 ??? L5-S1 anterolateral fusion 75197/51 ??? L3-4 insertion of cage 87456 ??? L4-5 insertion of cage 87109/51 ??? L5-S1 insertion of cage 96812/51 ??? Bone graft aspirate left iliac crest separate incision ??? Allograft cancellous chips lobster catcher: Yes Silk Conditioner: Yesenia Coy Tasks completed by first beater: Opening, Closing and Opening closing Type of Anesthesia: General RN Documented Start/Stop Times: Operation Date: 06/21/24 07:30 Case Time Into Pre-Op 06/21/24 06:02 Out of Pre-Op 06/21/24 07:34 Anesthesia Start 06/21/24 07:43 Into Room 06/21/24 07:43 Procedure Start 06/21/24 08:20 Procedure End 06/21/24 14:20 Anesthesia End 06/21/24 14:28 Out of Room 06/21/24 14:28 Into Recovery 06/21/24 14:30 Out of Recovery 06/21/24 16:15 Into Phase II Recovery 06/21/24 16:17 Procedure Start Time: 08:20 Procedure Stop Time: 12:00 Select all DRAINS/GRAFTS/IMPLANT S that apply: Implanted device Implanted device details: Graft details: Allograft cortical cancellous bone chips, autologous bone marrow aspirate and Implanted device Implanted device details: DePuy cougar lateral lumbar interbody cage???peek Estimated Blood Loss: 100 Specimen collected: No Description of surgery: Co-surgeon: Dr. Miranda and Dr. Johnson HPI: Patient is a 54-year-old male with multilevel lumbar degenerative disc disease evaluated by Dr. Miranda and felt to be appropriate for oblique lumbar interbody fusion. Given the levels involved vascular surgery assistance is requested for exposure to mobilize the abdominal pelvic vessels. Description of procedure: Upon obtaining form consent and verification correct patient procedure site patient taken And was placed on general anesthesia. He was then positioned prepped and draped in usual sterile fashion a time was performed. Oblique incision was then made superior to the left iliac crest and Bovie electrocautery was dissect down through subcutaneous tissue to the level the fascia. The fascia was then incised and the muscles of the abdominal wall split following along the orientation of the fibers with hand-held retractors progressively moved deeper into the wound. Once we entered the retroperitoneal space blunt dissection was dissect down mobilizing the abdominal contents and exposing the psoas muscle. At this point the Syn frame self-retaining retractor was brought into position and blades placed to allow exposure of the lateral aspect of the lumbar spine. Further dissection was performed with Bovie and blunt dissection until the L4- L5 disc was visualized. At this location the Bovie was used to renzo the site and we then turned our attention distally to the L5-S1 disc space. The left iliac vein was overlying the disc space and there was a segmental branch at this location. This branch was ligated with silk ties and medium clips and then divided allowing further retraction of the iliac vein towards the midline. Working distally we were confined by the psoas muscle and the bony pelvis and were able to visualize the iliolumbar vein which was more inferior than typical in location. Given its more distal location it was both not possible to ligate this and also not necessary as we able to mobilize the iliac vein sufficiently to obtain our working space. At this point Dr. Miranda performed the L5-S1 discectomy and implant which she will dictate separately in further detail. Next the retractor blades were repositioned and the L4-L5 discectomy was performed again dictated separately. Gelfoam was placed in the disc space and we then dissected up to the L3-L4 disc space with blunt and Bovie dissection until adequate exposure was obtained. At this point Dr. Miranda performed the discectomy and implant which he will dictate in further detail. Finally the retractor blades were positioned and the L4-L5 implant placed which will be dictated in further detail separately. The retroperitoneum was then inspected for hemostasis and the left iliac vein inspected and found to be patent and intact, free of injury. Retractors were then with (more content not included)... Normal [facility] Operative Report [facility] Medical Records Department [address] [place] [address] Operative Report 06/21/24 1511 MR#: [id number] Acct: [id number] Name: OZIEL BURTON Rep #: [id number] : 1970 54 From: Jai Miranda MD PCP: Dr. Renzo Beatty, Status:ADM IN Location: [facility] AC-TBA-1 Procedures Musculoskeletal 20xxx-29xxx: Other Procedure See Report Operative Report (Standard) Operative Information Date of Procedure: 06/21/24 Pre-Operative Diagnosis: L5-S1 spondylolisthesis, L3-S1 disc degeneration with stenosis with neurogenic claudication Post-Operative Diagnosis: Same Surgery/Procedure Performed: L3-S1 posterior spinal instrumented fusion lobster catcher: Yes Silk Conditioner: Yesenia Coy Tasks completed by first beater: Closing, Implanting device, Hemostasis: Electrocautery and Retracting Type of Anesthesia: General RN Documented Start/Stop Times: Operation Date: 06/21/24 07:30 Case Time Into Pre-Op 06/21/24 06:02 Out of Pre-Op 06/21/24 07:34 Anesthesia Start 06/21/24 07:43 Into Room 06/21/24 07:43 Procedure Start 06/21/24 08:20 Procedure End 06/21/24 14:20 Anesthesia End 06/21/24 14:28 Out of Room 06/21/24 14:28 Into Recovery 06/21/24 14:30 Procedure Start Time: 08:20 Procedure Stop Time: 14:20 Select all DRAINS/GRAFTS/IMPLANT S that apply: Graft Graft details: Allograft cancellous bone chips and Implanted device Implanted device details: DePuy Viper prime pedicle screw instrumentation Estimated Blood Loss: 100 cc Specimen collected: No Description of surgery: Preoperative diagnosis: L5-S1 spondylolisthesis, L3-S1 disc degeneration, stenosis with neurogenic claudication Postoperative diagnosis: Same Name of procedures: L3-S1 posterior percutaneous pedicle screw instrumented fusion, prone: ??? L3-4 posterior spinal fusion 52112 ??? L3-S1 posterior pedicle screw instrumentation 36202 ??? L4-5 posterior fusion 07397/51 ??? L5-S1 posterior fusion 54937/51 ??? Allograft cancellous chips Attending Surgeon: Dr. Jai Miranda Estimated blood loss: 100 mL (total for entire case) Anesthesia: General Complications: None Description of procedure: After the anterior procedure was complete, the patient was then turned supine. The patient was then transferred to Willie table in prone position. Back was prepped and draped in usual fashion. C-arm AP view was then taken. C-arm was positioned in a way that L3 was centralized and superior endplate of was parallel to the beam. Spinous process was centered between the pedicles. Midline was marked with skin marker and lateral borders of the pedicles were also marked. Skin marker was also utilized to renzo transversely across the middle of the pedicles at L3. 2 transverse paramedian incisions of 1 inch were placed. The fascia was incised vertically. Finger dissection was utilized to palpate the transverse process and facet joint. Viper Prime screws with towers were inserted and docked onto the transverse processes. This was then slowly moved medially to reach the superior articular process of L3. This was then confirmed on C-arm and then a mallet was utilized to drive the trocar into the pedicle going up to the medial wall of the pedicle on AP view. This was performed both sides. C-arm lateral view confirmed that the tip of the trocar was in the vertebral body, and the screw was advanced into the pedicle and vertebral body. This was repeated similarly at L5 and S1 bilaterally. Screw sizes were 7 x 50 mm at L3 and L5, and 7 x 45 mm at S1 on both sides. 90 mm precontoured titanium 5.5 mm lordotic gillian on both sides were then passed through the screw extensions and reduced down to the screws with the help of Depuy Viper instrumentation system on both sides. AP and lateral view of the C-arm showed good positioning of the screws and cages. Final tightening with the torque screwdriver was then completed. Kemar was utilized to roughen the facet joint at L3-4, L4-5 and L5-S1 on the right side. Cancellous allograft bone chips mixed with bone marrow aspirate were then placed over this decorticated area. Hemostasis was achieved. Closure was done in layers with 0 Vicryls for the fascia, 2-0 Vicryls for the subcutaneous tissue, and Monocryl for the skin. Dermabond was applied. Dressings were applied covered with Tegaderm. The patient was then turned supine onto a hospital bed. The patient was extubated and taken to PACU in stable condition. The patient tolerated the procedure well and no complications occurred. Depuy Carmi cage Viper Prime minimally invasive pedicle screw instrumentation system was utilized in this case. No dural tear was identified intraoperatively. I was present for the entirety of the case and performed the surgery. Retirement Village Manager Yesenia Coy PA-C. My physician medical assistant supervisor was a vital (more content not included)... Normal [facility] Operative Report [facility] Medical Records Department [address] [place] [address] Operative Report 06/21/24 1506 MR#: [id number] Acct: [id number] Name: OZIEL BURTON Rep #: [id number] : 1970 54 From: Jai Miranda MD PCP: Dr. Renzo Beatty, Status:ADM IN Location: [facility] AC-TBA-1 Procedures Musculoskeletal 20xxx-29xxx: Other Procedure See Report Operative Report (Standard) Operative Information Date of Procedure: 06/21/24 Pre-Operative Diagnosis: L5-S1 spondylolisthesis, L3-S1 disc degeneration, stenosis with neurogenic claudication Post-Operative Diagnosis: Same Surgery/Procedure Performed: L3-S1 oblique lumbar to body fusion lobster catcher: Yes Silk Conditioner: Mayco oJhnson Tasks completed by first beater: Other (Co-surgeon- vascular surgery- approach) Additional medical assistant supervisor?: Yes Additional Retirement Village Manager #2: Yesenia Coy Tasks completed by medical assistant supervisor #2: Closing, Removing tissue, Hemostasis: Electrocautery and Retracting Type of Anesthesia: General RN Documented Start/Stop Times: Operation Date: 06/21/24 07:30 Case Time Into Pre-Op 06/21/24 06:02 Out of Pre-Op 06/21/24 07:34 Anesthesia Start 06/21/24 07:43 Into Room 06/21/24 07:43 Procedure Start 06/21/24 08:20 Procedure End 06/21/24 14:20 Anesthesia End 06/21/24 14:28 Out of Room 06/21/24 14:28 Into Recovery 06/21/24 14:30 Procedure Start Time: 08:20 Procedure Stop Time: 14:20 Select all DRAINS/GRAFTS/IMPLANT S that apply: Graft Graft details: Allograft cortical cancellous bone chips, autologous bone marrow aspirate and Implanted device Implanted device details: DePuy cougar lateral lumbar interbody cage???peek Estimated Blood Loss: 100 cc Specimen collected: No Description of surgery: Preoperative diagnosis: L5-S1 spondylolisthesis, L3-S1 disc degeneration, stenosis with neurogenic claudication Postoperative diagnosis: Same Name of procedures L3-S1 oblique lumbar interbody fusion (OLIF), minimally invasive left sided approach, lateral decubitus: ??? L3-4 anterolateral spinal fusion 74429 ??? L4-5 anterolateral fusion 13179/51 ??? L5-S1 anterolateral fusion 74806/51 ??? L3-4 insertion of cage 12180 ??? L4-5 insertion of cage 72468/51 ??? L5-S1 insertion of cage 22974/51 ??? Bone graft aspirate left iliac crest separate incision ??? Allograft cancellous chips Attending Surgeon: Dr. Jai Miranda Co-surgeon: Dr. Mayco Johnson Estimated blood loss: 100 mL Anesthesia: General Complications: None Indications: Patient is a 54-year-old pleasant gentleman who has had a long history of low back pain and bilateral lower extremity radiation and difficulty walking distances. Xrays MRI revealed L5-S1 spondylolisthesis with L3-S1 disc degeneration and stenosis. After undergoing a prolonged period of nonoperative treatment, the patient elected to undergo surgical decompression fusion. All surgical options were discussed with the patient including anterior and posterior approaches. All risks and benefits associated with the procedure were explained to the patient. The risks include but are not limited to infection, bleeding, injury to nerves and vessels including major vessels like IVC and aorta, persistent paresthesia, persistent pain, dural tear, need for further procedures, adjacent segment degeneration, pseudoarthrosis, hardware failure, retrograde ejaculation, paralytic ileus, etc. Procedure: The patient was identified in the preoperative holding suite using Unique patient identifiers. Skin was marked, consent was reviewed, and all questions were answered. The patient was then brought back to the operative room. A surgical timeout was performed to make sure correct procedure was being done on the correct patient and all operative room staff were on the same page. General endotracheal anesthesia was then given to the patient. Kaur catheter was inserted. The patient was then carefully positioned in right lateral decubitus position with the left side up on a regular OR table. Axillary roll was placed and all bony prominences were well- padded. Hip positioners were placed in the posterior buttocks and anterior sternal area. The surgical area was prepped and draped in usual fashion. Preoperative antibiotic was injected IV as preoperative antibiotic. A final timeout was then again done just before starting the procedure. A 2 inch incision oblique was taken in the left lower quadrant of the abdomen 2 fingerbreadths away from the iliac crest and the lower ribs. Sharp dissection with Bovie was carried out up to the fascia covering the external oblique. The external oblique, internal oblique and transversus abdominis muscles were split along the muscle fibers and retroperitoneal space was entered. Sponge sticks were utilized to move the bowel and peritoneum cft-de-rlr-way and psoas mu (more content not included)... Normal [facility] HIV - WCHon 06-15-2024 HIV Non-Reactive Normal Nonreactive [facility] Comment on above: Order Comment: Reaso n for Exam: PAT Performed By: #### L 3890.6300, L3890.6200, L3100.0300, L3890.6005 ####[facility] [id number] [place], [address] Hepatitis B Surface Antibody on 06-15-2024 HEP B Surf Ab Non-Reactive Normal [facility] Comment on above: Order Comment: Reaso n for Exam: PAT Result Comment: Non Reactive: Inconsistent with immunity less than <10 mIU/mL Reactive: Consistent with immunity greater than or equal to 10 mIU/mL Performed By: #### L 3890.6300, L3890.6200, L3100.0300, L3890.6005 ####[facility] [address] [place], [address] Hepatitis C Antibodyon 06-15 Hepatitis C AB Non-Reactive Normal Nonreactive [facility] Comment on above: Order Comment: Reaso n for Exam: PAT Result Comment: Non Reactive: < 0.8 Equivocal: >/= 0.8 to < 1.0 Reactive: >/= 1.0 The CDC requires that a reactive/equivocal HCV antibody result be sent out for confirmation. HCV Quant by PCR testing. Performed By: #### L 3890.6300, L3890.6200, L3100.0300, L3890.6005 ####[facility] [id number] [place], [address] Hepatitis A AB, Totalon 05-29 HEPATITIS A,TOT Negative Normal Negative [facility] Comment on above: Result Comment: Comm ent: The HAV total antibody assay detects both IgG and IgM but does not differentiate between them. A negative result suggests susceptibility to infection. A positive result could be due to vaccination, previously resolved infection or active infection. Testing for HAV IgM should be performed if active HAV infection is suspected. [facility] offers profiles that will automatically reflex positive HAV total antibody results to IgM (e.g., panel #[id number] HAV Antibody w/ Rfx). Performed at: [address] [id number] Community Outreach Coordinator: Walter Olmos PhD, Phone: [phone] Performed By: #### L 3890.6300, L3890.6200, L3100.0300, L3890.6005 ####[facility] [address] [place], [address] MRSA/SAID NASAL SCREENon MRSA+SAID SCRN Reason for Exam: PREOP MRSA MRSA Negative S. AUREUS S. aureus Negative Normal [facility] Comment on above: Performed By: #### L 4600.0100, L505.7010, L101.9900, L501.1400, L501.6710 #### [facility] Laboratory [address] [place], [address] HBV surface IgG Ql (S)Ordere d By: Jai Miranda on 06-11-2024 Hepatitis B Surface Antibody Non-Reactive [facility] Comment on above: Non Reactive: Incons istent with immunity less than <10 mIU/mL Reactive: Consistent with immunity greater than or equal to 10 mIU/mL HIV 1 and HIV-2 antibody ass ay with HIV-1 p24 antigen detectionOrdered By: Jai Miranda on 06-11-2024 HIV 1+2 Ab+HIV1 p24 Ag IA Ql Non-Reactive Nonreactive [facility] HIV 1+2 Ab+HIV1 p24 Ag IA Ql Ordered By: Jai Miranda on 06-11-2024 HIV (1&2) Antibody Non-Reactive Nonreactive [facility] Hepatitis A virus total anti body assayOrdered By: Jai Miranda on 06-11-2024 Hepatitis A Antibody Total Negative Negative [facility] Comment on above: Comment: The HAV tot al antibody assay detects both IgG andIgM but does not differentiate between them. A negativeresult suggests susceptibility to infection. A positiveresult could be due to vaccination, previously resolvedinfection or active infection. Testing for HAV IgM shouldbe performed if active HAV infection is suspected. [facility] that will automatically reflex positive HAVtotal antibody results to IgM (e.g., panel #[id number] HAVAntibody w/ Rfx).Performed at: [address] [id number] Director: Walter Olmos PhD, Phone: [phone] Hepatitis C virus antibody a ssayOrdered By: Jai Miranda on 06-11-2024 Hepatitis C Antibody Non-Reactive Nonreactive [facility] Comment on above: Non Reactive: < 0.8 Equivocal: >/= 0.8 to < 1.0 Reactive: >/= 1.0The CDC requires that a reactive/equivocal HCV antibody result be sent out for confirmation. HCV Quant by PCR testing. MRSA screenOrdered By: Timoteo Miranda on 06-11-2024 MRSA DNA JUANI+probe Ql (Unsp spec) [facility] Nasal Screen MRSA/MSSA [facility] Magnesium measurementOrdered By: Jai Miranda on 06-11-2024 Magnesium [Mass/Vol] 1.9 mg/dL Normal 1.6-2.6 [facility] Comment on above: Performed By: #### L 4600.0100, L505.7010, L101.9900, L501.1400, L501.6710 #### [facility] [address] [place], [place], [address] Orthopedic Visit Reporton Orthopedic Visit Report [facility] [address] [place] [address] [address] [place] [address] OFFICE VISIT Date of Service: 06/11/24 MR#: [id number] Acct: [id number] Name: OZIEL BURTON Rep #: [id number] : 1970 Provider: Dr. Jai Miranda MD Age/Sex: 54/M Location: [facility] Status: Signed Intake Vital Signs 04/07/24 06:01 Height 5 ft 9 in Intake Visit Reasons: lumbar spine Chief Complaint: pre op lumbar spine Is patient in pain?: Yes (lumbar spine ) Pain scale (1-10): 4 Allergies olmesartan medoxomil (From Benicar) Allergy (Verified 06/11/24 10:52) Itching Medications ???Medication ???Instructions ???Recorded ???Confirmed ???Type calcium 315 mg (as 2 tab PO QHS SUPPLEMENT 04/25/20 0 06/11/24 History citrate)-vitamin D3 5 mcg (200 unit) tablet (Calcium Citrate + D) multivitamin 2 cap PO DAILY SUPPLEMENT 04/25/20 06/11/24 History amlodipine 5 mg tablet 5 mg PO DAILY BP 08/04/20 06/11/24 History mecobalamin (vitamin B12) 1,000 1,500 mcg sublingual DAILY 1 06/11/24 History mcg disintegrating SUPPLEMENT tablet,sublingual metoprolol succinate 25 mg 25 mg PO DAILY BP 08/04/20 5 History tablet,extended release 24 hr pantoprazole 20 mg tablet,delayed 40 mg PO DAILY GERD 01/29/2105/29 History release (Protonix) celecoxib 200 mg capsule (Celebrex) 200 mg PO BID PAIN 05/23/21 History cholecalciferol (vitamin D3) 10 10 mcg PO DAILY SUPPLEMENT 2 06/11/24 History mcg (400 unit) capsule (Vitamin D3) magnesium 1 tab PO QHS SUPPLEMENT 01/08/22 0 06/11/24 History gabapentin 100 mg capsule 100 mg PO BID PAIN 02/11/22 History aspirin 81 mg tablet,delayed 81 mg PO DAILY SUPPLEMENT 10/02/22 06/11/24 History release (Adult Aspirin Regimen) fiber 2 cap PO QHS SUPPLEMENT 02/03/24 0 06/11/24 History trazodone 50 mg tablet 100 mg PO QHS to sleep through the 02/03/24 06/11/24 History night amoxicillin 500 mg tablet 2,000 mg (4 x 500 mg) PO ONCE 03/2906/11/24 Rx DENTAL PROCEDURES #4 tabs PFSH Medical History History of edema Tendinosis of left shoulder Strain of right hand Smoker Acute bronchitis, unspecified Contact with and (suspected) exposure to other viral communicable diseases 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 Traumatic open wound of right lower leg Chronic wound of extremity Degenerative disc disease Varicose veins with inflammation History of hemorrhoids Hypertension GERD (gastroesophageal reflux disease) History of deep vein thrombosis History of diabetes mellitus CPAP (continuous positive airway pressure) dependence Obstructive sleep apnea Arthritis Obesity (BMI 35.0-39.9 without comorbidity) Wears glasses Alcohol use History of steroid therapy DVT (deep venous thrombosis) Back pain Gastric reflux CPAP (continuous positive airway pressure) dependence Leg cramps History of echocardiogram History of stress test Hypertension Varicose veins of right lower extremity Lab test negative for COVID-19 virus Disorder of uvula Diabetes Hemorrhoids Arthritis Surgical History History of bilateral knee arthroplasty History of root canal procedure Hx of knee surgery Hx of arthroplasty Hx of gastric bypass Hx of knee surgery Hx of colonoscopy History of tonsillectomy History of gastric restrictive surgery History of shoulder surgery History of arthroscopic knee surgery History of umbilical hernia repair History of surgical removal of ganglion cyst hx of gastric sleeve H/O shoulder surgery H/O hernia repair H/O knee surgery H/O foot surgery Deviated septum History of tonsillectomy Family History Other Breast cancer Social History Smoking Status: Current some day smoker tobacco type: cigars alcohol intake: current alcohol intake frequency: holidays/special occasions only HPI lumbar spine Chief Complaint: lumbar spine Details: This documentation accurately reflects the service provided and the decisions made by me, Dr. Jai Miranda MD 06/11/24 1050. Part of today???s visit was documented by [ ], acting as scribe. OZIEL BURTON is a 54 year old M here today for pre-op lumbar spine 360 fusion, DOS 06-21-24. 04/06/24: OZIEL BURTON is a 53 year old M here today for MRI review of his lumbar spine. He denies any changes today. Oziel continues to have low back pain and bilateral buttock pain and difficulty walking distances with legs feeling heavy. His symptoms seem to be equal on both sides. He denies any anterior thigh pain but does mention numbness bilaterally (more content not included)... Normal [facility] Serum hepatitis B virus surf mary antibody IgG detectionOrdered By: Jai Miranda on 06-11-2024 HBV surface IgG Ql (S) Non-Reactive [facility] Comment on above: Non Reactive: Incons istent with immunity less than <10 mIU/mL Reactive: Consistent with immunity greater than or equal to 10 mIU/mL Type AND Screen - PAT ONLYon 06-11-2024 Ab SCREEN GEL Negative Normal [facility] Comment on above: Order Comment: Surge ry Date: 06/21/24Reason for Laboratory Test [id number] LUMBAR FUSION Performed By: #### L 4600.0100, L505.7010, L101.9900, L501.1400, L501.6710 #### [facility] [address] [place], [address] ABO and Rh group Nom (Bld) Blood group A Rh(D) positive Normal [facility] Comment on above: Order Comment: Surge ry Date: 06/21/24Reason for Laboratory Test [id number] LUMBAR FUSION Performed By: #### L 4600.0100, L505.7010, L101.9900, L501.1400, L501.6710 #### [facility] [address] [place], [address] MR/PAT.AMAURYon 06-04-2024 MR/PAT.AMAURY [facility] Medical Records Department [address] [place] [address] PAT - Anesthesia 06/04/24 1331 MR#: [id number] Acct: [id number] Name: OZIEL BURTON Rep #: [id number] : 1970 54 From: Frederick Cuevas MD PCP: Dr. Renzo Beatty, DO Status:PRE IN Y Race: C Location: [facility] Pre-Assessment Diagnosis/Proposed Procedure Planned Operative Procedure(s): 360 Lumbar Fusion L3-4, L4-5 and L5-S1 Anesthesia History Anesthesia History - gang knife fish chopper: Anesthesia History - gang knife fish chopper Hx Hospitalization No 06/04/24 11:16 Any Problems With Anesthesia Yes: SLOW TO WAKE UP 06/04/24 11:16 Cholinesterase deficiency No 06/04/24 11:16 You/Your Family Experience No 06/04/24 11:16 fever (hyperthermia) with Relationship Recent Exposure to Contagious No 04/07/24 06:01 Disease Does patient have nerve No 06/04/24 11:16 stimulator Patient instructed to have device shut off --Does patient have Pacemaker or ICD? When Was Last Pacemaker Check QUESTION #4 FULL TEXT: You/Your Family Experience fever (hyperthermia) with Anesthesia Last Oral Intake Last Oral intake: Last Oral Intake NPO since Meds taken in AM with sips of water? Meds patient instructed to take am of surgery PONV PONV - gang knife fish chopper: PONV - gang knife fish chopper Female No 06/04/24 11:16 HX of Motion Sickness No 06/04/24 11:16 HX of N/V After Surgery No 06/04/24 11:16 Non-Smoker No 06/04/24 11:16 Duration of Surgery greater Yes 06/04/24 11:16 than 60 minutes Number of Risk Factors 1 06/04/24 11:16 PONV Score Low Risk 06/04/24 11:16 Height Weight Height Weight: Anesthesia: Height Weight Height 5 ft 9 in 04/07/24 06:01 Respiratory Assessment Respiratory Assessment - gang knife fish chopper: Respiratory Tract Infection Hx - gang knife fish chopper Hx Respiratory Tract Infection No 06/04/24 11:16 STOP Sleep Apnea STOP Sleep Apnea - gang knife fish chopper: STOP Sleep Apnea - gang knife fish chopper Hx Hypertension Yes 06/04/24 11:16 Hx Sleep Apnea Yes 06/04/24 11:16 CPAP Yes 06/04/24 11:16 BIPAP No 06/04/24 11:16 Do you snore loudly (louder than talking or can be heard Do you often feel tired/ fatigued/ sleepy during daytime? Has anyone observed you stop breathing during sleep? STOP Results Positive 06/04/24 11:16 QUESTION #5 FULL TEXT : Do you snore loudly (louder than talking or can be heard through closed doors)? Tobacco Use History Tobacco Use History - gang knife fish chopper: Tobacco Use History - gang knife fish chopper Tobacco Use Smoking Status Current some day smoker 06/04/24 11:16 Hx Tobacco Use Yes 06/04/24 11:16 Years Smoking Packs Smoked per Day Smoking Cessation Date was within the last 15 years Hx Smoking Cessation Date Hx Smoking Cessation No 06/04/24 11:16 Counseling Hematologic Medial History Hematologic Hx - gang knife fish chopper: Hematologic Medical Hx - manager personnel selection Hx of Blood Transfusion No 06/04/24 11:16 Hx of Transfusion in last 3 No 06/04/24 11:16 Months Date of Last Transfusion (if within last 3 months) Ever experience any problems No 06/04/24 11:16 with transfusion(s)? Specify any problems Hx of Preganancy in last 3 N/A 06/04/24 11:16 Months Nurse Filling Out Transfusion VLEHMAN 06/04/24 11:16 Questions: Date: 06/04/24 06/04/24 11:16 Time: 11:20 06/04/24 11:16 Patient unable to answer at this time (ie. 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 Traumatic open wound of right lower leg Chronic wound of extremity Degenerative disc disease Varicose veins with inflammation History of hemorrhoids Hypertension GERD (gastroesophageal reflux disease) History of deep vein thrombosis History of diabetes mellitus CPAP (continuous positive airway pressure) dependence Obstructive sleep apnea Arthritis Obesity (BMI 35.0-39.9 without comorbidity) Wears glasses Alcohol use History of steroid therapy DVT (deep venous thrombosis) Back pain Gastric reflux CPAP (continuous positive airway pressure) dependence Leg cramps History of echocardiogram History of stress test Hypertensi (more content not included)... Normal [facility] 08-YS-Ckzlbcc DOrdered By: Salty Beatty on 05-17-2024 Vitamin D 25-Hydroxy 87.2 ng/mL [facility] Comment on above: Vitamin D 25(OH) Sta tus Range Deficiency <20 ng/mL (50nmol/L) Insufficiency 20 - 30 ng/mL (50 - 75 nmol/L) Sufficiency 30 - 100 ng/mL (75 - 250 nmol/L) Toxicity >100 ng/mL (>250 nmol/L) Absolute neutrophil countOrd ered By: Renzo Beatty on 05-17-2024 Neutrophils (Bld) [#/Vol] 3.4 10*3/uL 2.0-7.7 [facility] Albumin to globulin ratioOrd ered By: Renzo Beatty on 05-17-2024 Albumin/Globulin [Mass ratio] 1.3 {ratio} 0.9-2.4 [facility] Basophil percentageOrdered B y: Renzo Beatty on 05-17-2024 Basophils/100 WBC (Bld) 0.7 % 0-1 [facility] Bilirubin, totalOrdered By: Renzo Beatty on 05-17-2024 Bilirubin [Mass/Vol] 0.50 mg/dL 0.20-1.00 [facility] Comment on above: For patients on eltr ombopag therapy, use of Dimension Douglas TBIL is not recommended. Blood urea nitrogen (BUN)/cr eatinine ratioOrdered By: Renoz Beatty on 05-17-2024 Urea nitrogen/Creatinine [Mass ratio] 21.9 mg/mg High 02-14 [facility] CBC W/Diff, Automatedon 04-29 Absolute Lymph 1.80 X10 3/uL Normal 0.83-4.51 [facility] Comment on above: Performed By: #### L 500.4050, L506.1000, L500.4100, L501.9520, L501.9910, L100.0100 #### [facility] [address] [place], [address] Absolute Neut 3.4 X10 3/uL Normal 2.0-7.7 [facility] Comment on above: Performed By: #### L 500.4050, L506.1000, L500.4100, L501.9520, L501.9910, L100.0100 #### [facility] [address] [place], [address] Basophils/100 WBC (Bld) 0.7 % Normal 0-1 [facility] Comment on above: Performed By: #### L 500.4050, L506.1000, L500.4100, L501.9520, L501.9910, L100.0100 #### [facility] [address] [place], [address] Eosinophils/100 WBC (Bld) 2.9 % Normal 0-5 [facility] Comment on above: Performed By: #### L 500.4050, L506.1000, L500.4100, L501.9520, L501.9910, L100.0100 #### [facility] [address] [place], [address] Erythrocyte distribution width (RBC) [Ratio] 13.2 % Normal 11.6-14.6 [facility] [facility] Comment on above: Performed By: #### L 500.4050, L506.1000, L500.4100, L501.9520, L501.9910, L100.0100 #### [facility] [address] [place], [address] Hematocrit (Bld) [Volume fraction] 48.1 % Normal 40-54 [facility] Comment on above: Performed By: #### L 500.4050, L506.1000, L500.4100, L501.9520, L501.9910, L100.0100 #### [facility] [address] [place], [address] Hemoglobin (Bld) [Mass/Vol] 15.6 g/dL Normal 13.0-16.5 [facility] Comment on above: Performed By: #### L 500.4050, L506.1000, L500.4100, L501.9520, L501.9910, L100.0100 #### [facility] [address] [place], [address] IG% 0.200 Normal 0.0-0.9 [facility] Comment on above: Result Comment: IG% - Immature Granulocytes (promyelocytes, myelocytes and metamyelocytes) > 1% indicates that a LEFT SHIFT is Present. Performed By: #### L 500.4050, L506.1000, L500.4100, L501.9520, L501.9910, L100.0100 #### [facility] [address] [place], [address] Lymphocytes/100 WBC (Bld) 30.6 % Normal 19-41 [facility] Comment on above: Performed By: #### L 500.4050, L506.1000, L500.4100, L501.9520, L501.9910, L100.0100 #### [facility] [address] [place], [address] MCH (RBC) [Entitic mass] 29.4 pg Normal 27.0-32.0 [facility] Comment on above: Performed By: #### L 500.4050, L506.1000, L500.4100, L501.9520, L501.9910, L100.0100 #### [facility] [address] [place], [address] MCHC (RBC) [Mass/Vol] 32.4 g/dL Normal 32-36 [facility] Comment on above: Performed By: #### L 500.4050, L506.1000, L500.4100, L501.9520, L501.9910, L100.0100 #### [facility] [address] [place], [address] MCV (RBC) [Entitic vol] 90.8 fL Normal 80-94 [facility] Comment on above: Performed By: #### L 500.4050, L506.1000, L500.4100, L501.9520, L501.9910, L100.0100 #### [facility] [address] [place], [address] Monocytes/100 WBC (Bld) 8.7 % Normal 0-10 [facility] Comment on above: Performed By: #### L 500.4050, L506.1000, L500.4100, L501.9520, L501.9910, L100.0100 #### [facility] [address] [place], [address] Neutrophils/100 WBC (Bld) 56.9 % Normal 47-70 [facility] Comment on above: Performed By: #### L 500.4050, L506.1000, L500.4100, L501.9520, L501.9910, L100.0100 #### [facility] [address] [place], [address] Nucleated RBC (Bld) [#/Vol] 0 10*3/uL Normal 0-5 [facility] Comment on above: Performed By: #### L 500.4050, L506.1000, L500.4100, L501.9520, L501.9910, L100.0100 #### [facility] [address] [place], [address] Platelet mean volume (Bld) [Entitic vol] 11.2 fL Normal 6.2-12.0 [facility] Comment on above: Performed By: #### L 500.4050, L506.1000, L500.4100, L501.9520, L501.9910, L100.0100 #### [facility] [address] [place], [address] Platelets (Bld) [#/Vol] 212 10*3/uL Normal 150-450 [facility] Comment on above: Performed By: #### L 500.4050, L506.1000, L500.4100, L501.9520, L501.9910, L100.0100 #### [facility] [address] [place], [address] RBC (Bld) [#/Vol] 5.30 10*6/uL Normal 4.6-6.2 [facility] Comment on above: Performed By: #### L 500.4050, L506.1000, L500.4100, L501.9520, L501.9910, L100.0100 #### [facility] [address] [place], [address] RDW SD 43.8 fl Normal 35.1-43.9 [facility] Comment on above: Performed By: #### L 500.4050, L506.1000, L500.4100, L501.9520, L501.9910, L100.0100 #### [facility] [address] [place], [address] WBC (Bld) [#/Vol] 5.9 10*3/uL Normal 4.4-11.0 [facility] Comment on above: Performed By: #### L 500.4050, L506.1000, L500.4100, L501.9520, L501.9910, L100.0100 #### [facility] [address] [place], [address] Carbon dioxide measurementOr dered By: Renzo Beatty on 05-17-2024 CO2 [Moles/Vol] 29.0 mmol/L 21.0-32.0 [facility] Chloride measurementOrdered By: Renzo Beatty on 05-17-2024 Chloride [Moles/Vol] 109 mmol/L High 98-107 [facility] Comprehensive Metabolic Prof ilon 05-17-2024 Albumin [Mass/Vol] 3.8 g/dL Normal 3.2-5.0 [facility] Comment on above: Order Comment: NOT F ASTING Performed By: #### L 500.4050, L506.1000, L500.4100, L501.9520, L501.9910, L100.0100 ####[facility] [address] [place], [address] Albumin/Globulin [Mass ratio] 1.3 {ratio} Normal 0.9-2.4 [facility] Comment on above: Order Comment: NOT F ASTING Performed By: #### L 500.4050, L506.1000, L500.4100, L501.9520, L501.9910, L100.0100 ####[facility] [address] [place], [address] ALK P 56 U/L Normal 45-117 [facility] Comment on above: Order Comment: NOT F ASTING Performed By: #### L 500.4050, L506.1000, L500.4100, L501.9520, L501.9910, L100.0100 ####[facility] [address] [place], [address] ALT [Catalytic activity/Vol] 21 U/L Normal 16-61 [facility] Comment on above: Order Comment: NOT F ASTING Performed By: #### L 500.4050, L506.1000, L500.4100, L501.9520, L501.9910, L100.0100 ####[facility] [address] [place], [address] AST [Catalytic activity/Vol] 10 U/L Low 15-37 [facility] Comment on above: Order Comment: NOT F ASTING Performed By: #### L 500.4050, L506.1000, L500.4100, L501.9520, L501.9910, L100.0100 ####[facility] [address] [place], [address] Bilirubin [Mass/Vol] 0.50 mg/dL Normal 0.20-1.00 [facility] Comment on above: Order Comment: NOT F ASTING Result Comment: For patients on eltrombopag therapy, use of Dimension Douglas TBIL is not recommended. Performed By: #### L 500.4050, L506.1000, L500.4100, L501.9520, L501.9910, L100.0100 ####[facility] [address] [place], [address] BUN/CRE 21.9 RATIO High 10-20 [facility] Comment on above: Order Comment: NOT F ASTING Performed By: #### L 500.4050, L506.1000, L500.4100, L501.9520, L501.9910, L100.0100 ####[facility] [address] [place], [address] CA,Total 9.3 mg/dL Normal 8.5-10.1 [facility] Comment on above: Order Comment: NOT F ASTING Performed By: #### L 500.4050, L506.1000, L500.4100, L501.9520, L501.9910, L100.0100 ####[facility] [address] [place], [address] Chloride [Moles/Vol] 109 mmol/L High 98-107 [facility] Comment on above: Order Comment: NOT F ASTING Performed By: #### L 500.4050, L506.1000, L500.4100, L501.9520, L501.9910, L100.0100 ####[facility] [address] [place], [address] CO2 [Moles/Vol] 29.0 mmol/L Normal 21.0-32.0 [facility] Comment on above: Order Comment: NOT F ASTING Performed By: #### L 500.4050, L506.1000, L500.4100, L501.9520, L501.9910, L100.0100 ####[facility] [address] [place], [address] Creatinine [Mass/Vol] 1.14 mg/dL Normal 0.70-1.30 [facility] Comment on above: Order Comment: NOT F ASTING Result Comment: The validity of the calculated GFR GFRAA in patients over 70 years has not been determined. Clinical correlation is essential. Performed By: #### L 500.4050, L506.1000, L500.4100, L501.9520, L501.9910, L100.0100 ####[facility] [address] [place], [address] EST GFR - AA 85 mL/min Normal >60 [facility] Comment on above: Order Comment: NOT F ASTING Result Comment: Afri can Brazilian GFR Calc Performed By: #### L 500.4050, L506.1000, L500.4100, L501.9520, L501.9910, L100.0100 ####[facility] [address] [place], [address] GAP 2 Low 5-15 [facility] Comment on above: Order Comment: NOT F ASTING Performed By: #### L 500.4050, L506.1000, L500.4100, L501.9520, L501.9910, L100.0100 ####[facility] [address] [place], [address] GFR/1.73 sq M.predicted among non-blacks MDRD (S/P/Bld) [Vol rate/Area] 71 mL/min/{1.73_m2} Normal >60 [facility] Comment on above: Order Comment: NOT F ASTING Result Comment: Non- GFR Calc Performed By: #### L 500.4050, L506.1000, L500.4100, L501.9520, L501.9910, L100.0100 ####[facility] [address] [place], [address] Globulin (S) [Mass/Vol] 2.9 g/dL Normal 2.2-4.2 [facility] Comment on above: Order Comment: NOT F ASTING Performed By: #### L 500.4050, L506.1000, L500.4100, L501.9520, L501.9910, L100.0100 ####[facility] [address] [place], [address] Glucose [Mass/Vol] 104 mg/dL Normal 74-106 [facility] Comment on above: Order Comment: NOT F ASTING Result Comment: Fast ing Glucose result from 100 to 125 mg/dL suggests IMPAIRED HOMEOSTASIS per A.D.A. criteria. Performed By: #### L 500.4050, L506.1000, L500.4100, L501.9520, L501.9910, L100.0100 ####[facility] [address] [place], [address] Potassium [Moles/Vol] 4.2 mmol/L Normal 3.5-5.1 [facility] Comment on above: Order Comment: NOT F ASTING Performed By: #### L 500.4050, L506.1000, L500.4100, L501.9520, L501.9910, L100.0100 ####[facility] [address] [place], [address] Sodium [Moles/Vol] 140 mmol/L Normal 136-145 [facility] Comment on above: Order Comment: NOT F ASTING Performed By: #### L 500.4050, L506.1000, L500.4100, L501.9520, L501.9910, L100.0100 ####[facility] [address] [place], [address] T PROT 6.7 g/dL Normal 6.4-8.2 [facility] Comment on above: Order Comment: NOT F ASTING Performed By: #### L 500.4050, L506.1000, L500.4100, L501.9520, L501.9910, L100.0100 ####[facility] [address] [place], [address] Urea nitrogen [Mass/Vol] 25 mg/dL High 7-18 [facility] Comment on above: Order Comment: NOT F ASTING Performed By: #### L 500.4050, L506.1000, L500.4100, L501.9520, L501.9910, L100.0100 ####[facility] [address] [place], [address] Eosinophil percentageOrdered By: Renzo Beatty on 05-17-2024 Eosinophils/100 WBC (Bld) 2.9 % 0-5 [facility] Erythrocyte distribution wid th ratioOrdered By: Renzo Beatty on 05-17-2024 Erythrocyte distribution width (RBC) [Ratio] 13.2 % 11.6-14.6 [facility] Erythrocyte distribution wid th standard deviationOrdered By: Renzo Beatty on 05-17-2024 Erythrocyte distribution width (RBC) [Entitic vol] 43.8 fL 35.1-43.9 [facility] Estimated glomerular filtrat ion rate (GFR) AmericanOrdered By: Renzo Beatty on 05-17-2024 Estimated GFR (MDRD) Amer 85 mL/min >60 [facility] Comment on above: GFR Calc Glomerular filtration rate ( GFR) estimationOrdered By: Renzo Beatty on 05-17-2024 Estimated GFR (MDRD) Non-Af Amer 71 mL/min >60 [facility] Comment on above: Non- GFR Calc Glucose measurementOrdered B y: Renzo Beatty on 05-17-2024 Glucose [Mass/Vol] 104 mg/dL 74-106 [facility] Comment on above: Fasting Glucose resu lt from 100 to 125 mg/dL suggests IMPAIRED HOMEOSTASIS per A.D.A. criteria. Hematocrit Auto (Bld) [Volum e fraction]Ordered By: Renzo Beatty on 05-17-2024 Hematocrit (Bld) [Volume fraction] 48.1 % 40-54 [facility] Hemoglobin measurementOrdere d By: Renzo Beatty on 05-17-2024 Hemoglobin (Bld) [Mass/Vol] 15.6 g/dL 13.0-16.5 [facility] High density lipoprotein (HD L) measurementOrdered By: Renzo Beatty on 05-17-2024 Cholesterol in HDL [Mass/Vol] 52 mg/dL >40 [facility] Comment on above: The drugs N-Acetylcy steine and Metamizole may falsely depress this assay. Reference Range HDL <40 mg/dL Low HDL Cholesterol HDL >or= 60 mg/dL High HDL Cholesterol Immature granulocytes/100 WB C Auto (Bld)Ordered By: Renzo Beatty on 05-17-2024 Immature granulocytes/100 WBC (Bld) 0.200 % 0.0-0.9 [facility] Comment on above: IG% - Immature Granu locytes (promyelocytes, myelocytes and metamyelocytes) > 1% indicates that a LEFT SHIFT is Present. Laboratory - Chemistry and C hemistry - challengeOrdered By: Renzo Beatty on 05-17-2024 AST [Catalytic activity/Vol] 10 U/L Low 15-37 [facility] Lipid Profileon 05-17-2024 Cholesterol [Mass/Vol] 161 mg/dL Normal 200 [facility] Comment on above: Order Comment: NOT F ASTING Result Comment: <200 mg/dL Desirable 200-240 mg/dL Borderline >240 mg/dL High Risk Performed By: #### L 500.4050, L506.1000, L500.4100, L501.9520, L501.9910, L100.0100 ####[facility] [address], [address] Cholesterol in HDL [Mass/Vol] 52 mg/dL Normal [facility] Comment on above: Order Comment: NOT F ASTING Result Comment: The drugs N-Acetylcysteine and Metamizole may falsely depress this assay. Reference Range HDL <40 mg/dL Low HDL Cholesterol HDL >or= 60 mg/dL High HDL Cholesterol Performed By: #### L 500.4050, L506.1000, L500.4100, L501.9520, L501.9910, L100.0100 ####[facility] [address] [place], [address] Cholesterol in LDL [Mass/Vol] 72 mg/dL Normal 0-130 [facility] Comment on above: Order Comment: NOT F ASTING Performed By: #### L 500.4050, L506.1000, L500.4100, L501.9520, L501.9910, L100.0100 ####[facility] [address] [place], [address] Cholesterol in VLDL [Mass/Vol] 37 mg/dL Normal 5-40 [facility] Comment on above: Order Comment: NOT F ASTING Performed By: #### L 500.4050, L506.1000, L500.4100, L501.9520, L501.9910, L100.0100 ####[facility] [address], [address] Triglyceride [Mass/Vol] 184 mg/dL Normal [facility] Comment on above: Order Comment: NOT F ASTING Result Comment: The drugs N-Acetylcysteine and Metamizole may falsely depress this assay. Serum Triglycerides Reference Interval Normal <150 mg/dL Borderline high 150 - 199 mg/dL High 200 - 499 mg/dL Very High > or = 500 mg/dL Performed By: #### L 500.4050, L506.1000, L500.4100, L501.9520, L501.9910, L100.0100 ####[facility] [address] [place], [address] Low density lipoprotein (LDL ) cholesterol measurementOrdered By: Renzo Beatty on 05-17-2024 Cholesterol in LDL [Mass/Vol] 72 mg/dL 0-130 [facility] Lymphocytes Auto (Unsp spec) [#/Vol]Ordered By: Renzo Beatty on 05-17-2024 Lymphocytes (Bld) [#/Vol] 1.80 10*3/uL 0.83-4.51 [facility] Lymphocytes/100 WBC Auto (Un sp spec)Ordered By: Renzo Beatty on 05-17-2024 Lymphocytes/100 WBC (Bld) 30.6 % 19-41 [facility] MCV (mean corpuscular volume ) determinationOrdered By: Renzo Beatty on 05-17-2024 MCV (RBC) [Entitic vol] 90.8 fL 80-94 [facility] Mean corpuscular hemoglobin (MCH) determinationOrdered By: Renzo Beatty on 05-17-2024 MCH (RBC) [Entitic mass] 29.4 pg 27.0-32.0 [facility] Mean corpuscular hemoglobin concentration (MCHC) determinationOrdered By: Renzo Beatty on 05-17-2024 MCHC (RBC) [Mass/Vol] 32.4 g/dL 32-36 [facility] Mean platelet volume determi nationOrdered By: Renzo Beatty on 05-17-2024 Platelet mean volume (Bld) [Entitic vol] 11.2 fL 6.2-12.0 [facility] Monocyte percentageOrdered B y: Renzo Beatty on 05-17-2024 Monocytes/100 WBC (Bld) 8.7 % 0-10 [facility] Neutrophil percentageOrdered By: Renzo Beatty on 05-17-2024 Neutrophils/100 WBC (Bld) 56.9 % 47-70 [facility] Nucleated red blood cell per centageOrdered By: Renzo Beatty on 05-17-2024 Nucleated RBC/100 WBC (Bld) [Ratio] 0 % 0-5 [facility] Orthopedic Visit Reporton Orthopedic Visit Report [facility] [address] [place] [address] [address] [place] [address] OFFICE VISIT Date of Service: 05/17/24 MR#: [id number] Acct: [id number] Name: OZIEL BURTON Rep #: [id number] : 1970 Provider: Dr. Ernesto unger MD Age/Sex: 54/M Location: [facility] Status: Signed Intake Vital Signs 04/07/24 06:01 Height 5 ft 9 in Intake Visit Reasons: LEFT SHOULDER Chief Complaint: post op left shoulder Accompanied by: Self Is patient in pain?: Yes Pain scale (1-10): 1 Allergies olmesartan medoxomil (From Benicar) Allergy (Verified 05/17/24 10:47) Itching Medications ???Medication ???Instructions ???Recorded ???Confirmed ???Type calcium 315 mg (as 2 tab PO QHS SUPPLEMENT 04/25/20 05/17/24 History citrate)-vitamin D3 5 mcg (200 unit) tablet (Calcium Citrate + D) multivitamin 2 cap PO DAILY SUPPLEMENT 04/25/20 05/17/24 History amlodipine 5 mg tablet 5 mg PO DAILY BP 08/04/20 05/17/24 History mecobalamin (vitamin B12) 1,000 1,500 mcg sublingual DAILY 08/04/20 05/17/24 History mcg disintegrating SUPPLEMENT tablet,sublingual metoprolol succinate 25 mg 25 mg PO DAILY BP 08/04/20 05/17/24 History tablet,extended release 24 hr pantoprazole 20 mg tablet,delayed 40 mg PO DAILY GERD 01/29/21 05/17/24 History release (Protonix) celecoxib 200 mg capsule (Celebrex) 200 mg PO BID PAIN 05/23/21 05/17/24 History cholecalciferol (vitamin D3) 10 10 mcg PO DAILY SUPPLEMENT 01/08/22 05/17/24 History mcg (400 unit) capsule (Vitamin D3) magnesium 1 tab PO QHS SUPPLEMENT 01/08/22 05/17/24 History gabapentin 100 mg capsule 100 mg PO BID PAIN 02/11/22 05/17/24 History aspirin 81 mg tablet,delayed 81 mg PO DAILY SUPPLEMENT 10/02/22 05/17/24 History release (Adult Aspirin Regimen) fiber 2 cap PO QHS 02/03/24 05/17/24 History trazodone 50 mg tablet 100 mg PO QHS to sleep through the 02/03/24 05/17/24 History night amoxicillin 500 mg tablet 2,000 mg (4 x 500 mg) PO ONCE #4 04/23/24 05/17/24 Rx tabs PFSH Medical History History of edema Tendinosis of left shoulder Strain of right hand Smoker Acute bronchitis, unspecified Contact with and (suspected) exposure to other viral communicable diseases 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 Traumatic open wound of right lower leg Chronic wound of extremity Degenerative disc disease Varicose veins with inflammation History of hemorrhoids Hypertension GERD (gastroesophageal reflux disease) History of deep vein thrombosis History of diabetes mellitus CPAP (continuous positive airway pressure) dependence Obstructive sleep apnea Arthritis Obesity (BMI 35.0-39.9 without comorbidity) Wears glasses Alcohol use History of steroid therapy DVT (deep venous thrombosis) Back pain Gastric reflux CPAP (continuous positive airway pressure) dependence Leg cramps History of echocardiogram History of stress test Hypertension Varicose veins of right lower extremity Lab test negative for COVID-19 virus Disorder of uvula Diabetes Hemorrhoids Arthritis Surgical History History of bilateral knee arthroplasty History of root canal procedure Hx of knee surgery Hx of arthroplasty Hx of gastric bypass Hx of knee surgery Hx of colonoscopy History of tonsillectomy History of gastric restrictive surgery History of shoulder surgery History of arthroscopic knee surgery History of umbilical hernia repair History of surgical removal of ganglion cyst hx of gastric sleeve H/O shoulder surgery H/O hernia repair H/O knee surgery H/O foot surgery Deviated septum History of tonsillectomy Family History Other Breast cancer Social History Smoking Status: Current some day smoker tobacco type: cigars alcohol intake: current alcohol intake frequency: holidays/special occasions only HPI LEFT SHOULDER Details: This documentation accurately reflects the service provided and the decisions made by me, Dr. Ernesto Ramirez MD 05/17/24 0805. Part of today???s visit was documented by [ ], acting as scribe. OZIEL BURTON is a 54 year old M here today for 6 weeks FU L shoulder arthroscopy, subacromial decompression, debridement. Doing well overall. Continues to do physical therapy. Working on stretching good range of motion mild soreness pain 0-1 out of 10 usually sometimes some nighttime symptoms. Coding Level of Care Code Global Post Op Diagnoses Tendinitis of both rotator cuffs M75.81; M75.82 Assessment and Plan Assessment and Plan (1) Tendinitis of both rotator cuffs: Status: Acute Plan: OZIEL (more content not included)... Normal [facility] PSA,Total - Annual Screenon 05-17-2024 PSA,TOT SCREEN 0.69 ng/mL Normal 0.00-4.00 [facility] Comment on above: Order Comment: NOT F ASTING Result Comment: This test was performed using the TPSA assay method for the [employer] chemistry system. Values obtained with different assay methods cannot be used interchangably. When changing PSA assays in the course of monitoring a patient, additional sequential testing should be carried out to confirm baseline values. Performed By: #### L 500.4050, L506.1000, L500.4100, L501.9520, L501.9910, L100.0100 ####[facility] [address] [place], [address] Platelet countOrdered By: Claudia Beatty on 05-17-2024 Platelets (Bld) [#/Vol] 212 10*3/uL 150-450 [facility] Potassium measurementOrdered By: Renzo Beatty on 05-17-2024 Potassium [Moles/Vol] 4.2 mmol/L 3.5-5.1 [facility] RBC Auto (Bld) [#/Vol]Ordere d By: Renzo Beatty on 05-17-2024 RBC (Bld) [#/Vol] 5.30 10*6/uL 4.6-6.2 [facility] Screening prostate specific antigen (PSA) measurementOrdered By: Renzo Beatty on 05-17-2024 Prostate Specific Antigen Screen 0.69 ng/mL 0.00-4.00 [facility] Comment on above: This test was perfor med using the TPSA assay method for theUniSmartooma chemistry system. Values obtained with differentassay methods cannot be used interchangably.When changing PSA assays in the course of monitoring apatient, additional sequential testing should be carriedout to confirm baseline values. Serum anion gap measurementO rdered By: Renzo Beatty on 05-17-2024 Anion gap [Moles/Vol] 2 mmol/L Low 5-15 [facility] Serum globulin measurementOr dered By: Renzo Beatty on 05-17-2024 Globulin (S) [Mass/Vol] 2.9 g/dL 2.2-4.2 [facility] Serum or plasma alanine hinson otransferase (ALT) measurementOrdered By: Renzo Beatty on 05-17-2024 ALT [Catalytic activity/Vol] 21 U/L 16-61 [facility] Serum or plasma albumin chel urement (mass/volume)Ordered By: Renzo Beatty on 05-17-2024 Albumin [Mass/Vol] 3.8 g/dL 3.2-5.0 [facility] Serum or plasma alkaline maribel sphatase measurementOrdered By: Renzo Beatty on 05-17-2024 ALP [Catalytic activity/Vol] 56 U/L 45-117 [facility] Serum or plasma calcium chel urement (mass/volume)Ordered By: Renzo Beatty on 05-17-2024 Calcium [Mass/Vol] 9.3 mg/dL 8.5-10.1 [facility] Serum or plasma cholesterol measurement (mass/volume)Ordered By: Renzo Beatty on 05-17-2024 Cholesterol [Mass/Vol] 161 mg/dL <200 [facility] Comment on above: <200 mg/dL Desirable 200-240 mg/dL Borderline >240 mg/dL High Risk Serum or plasma creatinine m easurement (mass/volume)Ordered By: Renzo Beatty on 05-17-2024 Creatinine [Mass/Vol] 1.14 mg/dL 0.70-1.30 [facility] Comment on above: The validity of the calculated GFR & GFRAA in patients over 70 years has not been determined. Clinical correlation is essential. Serum or plasma urea nitroge n measurement (mass/volume)Ordered By: Renzo Beatty on 05-17-2024 Urea nitrogen [Mass/Vol] 25 mg/dL High 7-18 [facility] Sodium levelOrdered By: Renzo Beatty on 05-17-2024 Sodium [Moles/Vol] 140 mmol/L 136-145 [facility] TSH QnOrdered By: Renzo womack on 05-17-2024 Thyroid Stimulating Hormone (TSH) 0.616 uIU/mL 0.358-3.740 [facility] Thyroid Stim Hormone (TSH)on 05-17-2024 TSH 0.616 uIU/mL Normal 0.358-3.740 [facility] Comment on above: Order Comment: NOT F ASTING Performed By: #### L 500.4050, L506.1000, L500.4100, L501.9520, L501.9910, L100.0100 ####[facility] [id number] [place], [place], [id number] Total proteinOrdered By: Jalyn Beatty on 05-17-2024 Protein [Mass/Vol] 6.7 g/dL 6.4-8.2 [facility] Triglycerides measurementOrd ered By: Renzo Jaci on 05-17-2024 Triglyceride [Mass/Vol] 184 mg/dL <199 [facility] Comment on above: The drugs N-Acetylcy steine and Metamizole may falsely depress this assay.Serum Triglycerides Reference Interval Normal <150 mg/dL Borderline high 150 - 199 mg/dL High 200 - 499 mg/dL Very High > or = 500 mg/dL Very low density lipoprotein (VLDL) cholesterol measurementOrdered By: Renzo Beatty on 05-17-2024 VLDL Cholesterol 37 mg/dL 5-40 [facility] Vitamin D,25 Hydroxyon 05-17 Vitamin D 25-OH 87.2 ng/mL Normal [facility] Comment on above: Result Comment: Dinora min D 25(OH) Status Range Deficiency <20 ng/mL (50nmol/L) Insufficiency 20 - 30 ng/mL (50 - 75 nmol/L) Sufficiency 30 - 100 ng/mL (75 - 250 nmol/L) Toxicity >100 ng/mL (>250 nmol/L) Performed By: #### L 500.4050, L506.1000, L500.4100, L501.9520, L501.9910, L100.0100 #### [facility] [address] [place], [place], [id number] White blood cell (WBC) count Ordered By: Renzo Jaci on 05-17-2024 WBC (Bld) [#/Vol] 5.9 10*3/uL 4.4-11.0 [facility] Inital Evaluation (1) - PTon 04-27-2024 Inital Evaluation (1) - PT [facility] Physical Therapy [address] [place] [address] / REHABILITATION SERVICES INITIAL EVALUATION MR#: [id number] Acct: [id number] Name: OZIEL BURTON Rep #: [id number] : 1970 54 From: Adelaide France DPT Referring Dr.: Dr. Ernesto Ramirez MD Status: R EG RCR Insurance: [employer] SELF PAY INSURANCE Patient's Visit Information Visit Information Visit Information: OZIEL BURTON is a 54 year old M referred to Physical Therapy by Dr. Ernesto Ramirez MD with a diagnosis of 04/07/24 Left shoulder arthroscopy, subacromial decompression, debridement. Date of Evaluation: 04/27/24 Physical Therapist: Adelaide France DPT Visit Plan Frequency: 2x /Week Duration: 4 Weeks Plan: Left shoulder arthroscopy, subacromial decompression, debridement 04/07/24 Focus on painfree ROM and scapular s/s HEP Given IE: Posture, Upper Trap Stretch, Levator Stretch, scapular retraction, shoulder cane flexion, shoulder abduction cane Subjective Subjective: Left shoulder arthroscopy, subacromial decompression, debridement 04/07/24. He went home after surgery- he had a sling- he saw MD and he does not have to wear it. The shoulder is sore- Worst: 7/10 Agg: laying in bed, moving it behind his back, Eases: hold it to his body. Best: 0/10. The pain is located in the AC joint and radiates to the deltoid. No N/T in the finger. He is right hand dominate. He has had some neck pain- but no blurred vision, SPICER, dizziness. Sleep: bed- does keep him up at night- will wake him up- side sleeper. Work: does not work. Is getting scheduled for back surgery- anterior/posterior fusion. Is not wearing the sling at all. PMHx/Meds: no changes since ortho visit. Objective Objective: Posture: forward head, rounded shoulders, increased kyphosis- increased guarding of the left UE Gait: decreased arm swing of the left UE Palpation: tender along levator insertion, upper trap and bicipital groove ROM: Elbow/wrist/hand: WNL, cervical: WNL with increased discomfort with sb, Shoulder: AROM: flexion: 80 degrees, abd: 30 degrees, IR: to greater troch, ER: 40 degrees, PROM: flexion: 120 degrees, abd: 140 degrees, IR: to belly, ER: 60 degree Strength: Scap: poor, Shoulder: Isometric: 3+/5 with pain, Elbow: 4+/5, Car Storer: equal to other side Observation: incisions well healed Balance/Special Test Scores Quick DASH Score: 56.8175 Goals Goal 1:: Patient will be I with HEP and progression Goal Time Frame: 4-6 Weeks Goal 2:: Patient will demo full AROM with the left shoulder Goal Time Frame: 4-6 Weeks Goal 3:: Patient will maintain proper posture t/o tx to demo increased scap s/s Goal Time Frame: 4-6 Weeks Rehabilitation Potential Physical Therapy Diagnosis: Patient presents with hypomobility- he has decreased scapular strength/stabilizatio n, pain free ROM and muscular endurance leading to poor posture and increased pain with ADLs Rehabilitation Potential: Good Anticipated Interventions Patient/Client Instruction: Educate patient on: Benefits of Fitness Program Therapeutic Exercise to Include: Strength training, Endurance training, Coordination, Agility training, Body mechanics, Postural training, Flexibilty training, Neuromotor development, Passive ROM, Active ROM, Dynamic Lumbar Stabilization and Scapular Strength/Stabilizatio n TENS: Yes Cryotherapy (ice pack, ice massage): Yes Thermo therapy (hot pack): Yes Ultrasound (thermal/non thermal): Yes Text: Thank you for the opportunity to evaluate your patient. For Medicare and Medicare HMO plans, please review the plan of care and approve it. It will need to be FAXED BACK to us at [phone] for Medicare purposes. For Medicare only, by signing this I certify the plan of care. Please let me know if there are questions or concerns regarding this plan of care. Physician Signature: Date : 04/27/24 1053 CC: Dr. Renzo Beatty DO; Dr. Ernesto Ramirez MD ELR Signed Normal [facility] Orthopedic Visit Reporton Orthopedic Visit Report [facility] [address] [place] [address] OFFICE VISIT Date of Service: 04/19/24 MR#: [id number] Acct: [id number] Name: OZIEL BURTON Rep #: [id number] : 1970 Provider: Dr. Ernesto unger MD Age/Sex: 53/M Location: [facility] Status: Signed Intake Vital Signs 01/30/24 09:48 04/07/24 06:01 Height 5 ft 9 in 5 ft 9 in Intake Visit Reasons: left shoulder Chief Complaint: post op left shoulder Accompanied by: Self Allergies olmesartan medoxomil (From BenRiverOner) Allergy (Verified 04/19/24 09:48) Itching Medications ???Medication ???Instructions ???Recorded ???Confirmed ???Type calcium 315 mg (as 2 tab PO QHS SUPPLEMENT 04/25/20 04/19/24 History citrate)-vitamin D3 5 mcg (200 unit) tablet (Calcium Citrate + D) multivitamin 2 cap PO DAILY SUPPLEMENT 04/25/20 04/19/24 History amlodipine 5 mg tablet 5 mg PO DAILY BP 08/04/20 04/19/24 History mecobalamin (vitamin B12) 1,000 1,500 mcg sublingual DAILY 08/04/20 04/19/24 History mcg disintegrating SUPPLEMENT tablet,sublingual metoprolol succinate 25 mg 25 mg PO DAILY BP 08/04/20 04/19/24 History tablet,extended release 24 hr pantoprazole 20 mg tablet,delayed 40 mg PO DAILY GERD 01/29/21 04/19/24 History release (Protonix) celecoxib 200 mg capsule (Celebrex) 200 mg PO BID PAIN 05/23/21 04/19/24 History cholecalciferol (vitamin D3) 10 10 mcg PO DAILY SUPPLEMENT 01/08/22 04/19/24 History mcg (400 unit) capsule (Vitamin D3) magnesium 1 tab PO QHS SUPPLEMENT 01/08/22 04/19/24 History gabapentin 100 mg capsule 100 mg PO BID PAIN 02/11/22 04/19/24 History aspirin 81 mg tablet,delayed 81 mg PO DAILY SUPPLEMENT 10/02/22 04/19/24 History release (Adult Aspirin Regimen) fiber 2 cap PO QHS 02/03/24 04/19/24 History trazodone 50 mg tablet 100 mg PO QHS to sleep through the 02/03/24 04/19/24 History night PFSH Medical History History of edema Tendinosis of left shoulder Strain of right hand Smoker Acute bronchitis, unspecified Contact with and (suspected) exposure to other viral communicable diseases 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 Traumatic open wound of right lower leg Chronic wound of extremity Degenerative disc disease Varicose veins with inflammation History of hemorrhoids Hypertension GERD (gastroesophageal reflux disease) History of deep vein thrombosis History of diabetes mellitus CPAP (continuous positive airway pressure) dependence Obstructive sleep apnea Arthritis Obesity (BMI 35.0-39.9 without comorbidity) Wears glasses Alcohol use History of steroid therapy DVT (deep venous thrombosis) Back pain Gastric reflux CPAP (continuous positive airway pressure) dependence Leg cramps History of echocardiogram History of stress test Hypertension Varicose veins of right lower extremity Lab test negative for COVID-19 virus Disorder of uvula Diabetes Hemorrhoids Arthritis Surgical History History of bilateral knee arthroplasty History of root canal procedure Hx of knee surgery Hx of arthroplasty Hx of gastric bypass Hx of knee surgery Hx of colonoscopy History of tonsillectomy History of gastric restrictive surgery History of shoulder surgery History of arthroscopic knee surgery History of umbilical hernia repair History of surgical removal of ganglion cyst hx of gastric sleeve H/O shoulder surgery H/O hernia repair H/O knee surgery H/O foot surgery Deviated septum History of tonsillectomy Family History Other Breast cancer Social History Smoking Status: Current some day smoker tobacco type: cigars alcohol intake: current alcohol intake frequency: holidays/special occasions only HPI left shoulder Details: This documentation accurately reflects the service provided and the decisions made by me, Dr. Ernesto Ramirez MD 04/19/24927. Part of today???s visit was documented by [ ], acting as scribe. OZIEL BURTON is a 53 year old M here today for 2 weeks FU L shoulder arthroscopy, subacromial decompression, debridement. Doing well some mild soreness keeping the incisions clean and dry has not yet booked in for physical therapy. Coding Level of Care Code Global Post Op Diagnoses Orthopedic aftercare Z47.89 Assessment and Plan Assessment and Plan (1) Orthopedic aftercare: Status: Acute Plan: OZIEL BURTON is a 53 year old M here today for 2 weeks FU L shoulder arthroscopy, subacromial decompression, debridement. ok to shower over incisions, start active and passive ROM, FU 4 weeks. okay to start physical (more content not included)... Normal [facility] Orthopedic Visit Reporton Orthopedic Visit Report [facility] [place] [address] [place] [address] OFFICE VISIT Date of Service: 04/09/24 MR#: [id number] Acct: [id number] Name: OZIEL BURTON Rep #: [id number] : 1970 Provider: Dr. Ernesto unger MD Age/Sex: 53/M Location: [facility] Status: Signed Intake Vital Signs 01/30/24 09:48 04/07/24 06:01 Height 5 ft 9 in 5 ft 9 in Intake Visit Reasons: left shoulder Chief Complaint: post op left shoulder Is patient in pain?: Yes (left shoulder) Pain scale (1-10): 1 Allergies olmesartan medoxomil (From Benicar) Allergy (Verified 04/09/24 09:51) Itching Medications ???Medication ???Instructions ???Recorded ???Confirmed ???Type calcium 315 mg (as 2 tab PO QHS SUPPLEMENT 04/25/20 04/09/24 History citrate)-vitamin D3 5 mcg (200 unit) tablet (Calcium Citrate + D) multivitamin 2 cap PO DAILY SUPPLEMENT 04/25/20 04/09/24 History amlodipine 5 mg tablet 5 mg PO DAILY BP 08/04/20 04/09/24 History mecobalamin (vitamin B12) 1,000 1,500 mcg sublingual DAILY 08/04/20 04/09/24 History mcg disintegrating SUPPLEMENT tablet,sublingual metoprolol succinate 25 mg 25 mg PO DAILY BP 08/04/20 04/09/24 History tablet,extended release 24 hr pantoprazole 20 mg tablet,delayed 40 mg PO DAILY GERD 01/29/21 04/09/24 History release (Protonix) celecoxib 200 mg capsule (Celebrex) 200 mg PO BID PAIN 05/23/21 04/09/24 History cholecalciferol (vitamin D3) 10 10 mcg PO DAILY SUPPLEMENT 01/08/22 04/09/24 History mcg (400 unit) capsule (Vitamin D3) magnesium 1 tab PO QHS SUPPLEMENT 01/08/22 04/09/24 History gabapentin 100 mg capsule 100 mg PO BID PAIN 02/11/22 04/09/24 History aspirin 81 mg tablet,delayed 81 mg PO DAILY SUPPLEMENT 10/02/22 04/09/24 History release (Adult Aspirin Regimen) fiber 2 cap PO QHS 02/03/24 04/09/24 History trazodone 50 mg tablet 100 mg PO QHS to sleep through the 02/03/24 04/09/24 History night oxycodone-acetaminoph en 5 mg-325 1 tab PO Q4H PRN pain 5 days #20 04/07/24 04/09/24 Rx mg tablet (Endocet) tabs PFSH Medical History History of edema Tendinosis of left shoulder Strain of right hand Smoker Acute bronchitis, unspecified Contact with and (suspected) exposure to other viral communicable diseases 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 Traumatic open wound of right lower leg Chronic wound of extremity Degenerative disc disease Varicose veins with inflammation History of hemorrhoids Hypertension GERD (gastroesophageal reflux disease) History of deep vein thrombosis History of diabetes mellitus CPAP (continuous positive airway pressure) dependence Obstructive sleep apnea Arthritis Obesity (BMI 35.0-39.9 without comorbidity) Wears glasses Alcohol use History of steroid therapy DVT (deep venous thrombosis) Back pain Gastric reflux CPAP (continuous positive airway pressure) dependence Leg cramps History of echocardiogram History of stress test Hypertension Varicose veins of right lower extremity Lab test negative for COVID-19 virus Disorder of uvula Diabetes Hemorrhoids Arthritis Surgical History History of bilateral knee arthroplasty History of root canal procedure Hx of knee surgery Hx of arthroplasty Hx of gastric bypass Hx of knee surgery Hx of colonoscopy History of tonsillectomy History of gastric restrictive surgery History of shoulder surgery History of arthroscopic knee surgery History of umbilical hernia repair History of surgical removal of ganglion cyst hx of gastric sleeve H/O shoulder surgery H/O hernia repair H/O knee surgery H/O foot surgery Deviated septum History of tonsillectomy Family History Other Breast cancer Social History Smoking Status: Current some day smoker tobacco type: cigars alcohol intake: current alcohol intake frequency: holidays/special occasions only HPI left shoulder Details: This documentation accurately reflects the service provided and the decisions made by me, Dr. Ernesto Ramirez MD 04/09/24 2806. Part of today???s visit was documented by [ ], acting as scribe. OZIEL BURTON is a 53 year old M here today for POD 2 L shoulder arthroscopy, subacromial decompression, debridement. Patient doing well here with his the pain is settling down. Coding Level of Care Code Global Post Op Diagnoses Chronic left shoulder pain M25.512; G89.29 Chronicity: chronic Tendinitis of both rotator cuffs M75.81; M75.82 Assessment and Plan Assessment and Plan (1) Left shoulder pain: Status: Acute Qualifiers: Chronicity: chronic Qualifie (more content not included)... Normal [facility] Discharge Instructionon 03-28 Discharge Instruction [facility] Medical Records Department [address] [place] [address] Instructions for Home/Discharge Instructions 04/07/24 0816 MR#: [id number] Acct: [id number] Name: OZIEL BURTON Rep #: [id number] : 1970 53 From: Ernesto Ramirez MD PCP: Dr. Renzo Beatty, DO [place] [place]charge Instructions Diet Discharge Diet: No restrictions Activity Ice area for (Minutes): 10 Lifting Restrictions: no lifting over 1 pound Additional Activity Instructions:: pendulums, sling for 1-2 weeks as needed Dressing / Incision Call your doctor if your incision/area has: Continuous Slow Oozing, Sudden Increased Bleeding, Increased Pain/ Swelling, Increased Redness, Foul Smelling Discharge and Swelling at the incision site Call your doctor if you observe: Fever of 101 or Higher, Coldness, Increased Pain and Numbness or Tingling Remove Dressing in: leave in place till F/U Cleanse incision/area with: Do not get Incision Wet Follow Up Care Please Follow Up With: Ernesto Ramirez MD When: 2 days Test Results: Test results from this visit will be discussed in further detail at your follow-up appointment, if applicable. Discharge Plan Admission Attending Provider: Ernesto Ramirez Primary Care Provider: Renzo Beatty Consulting Providers: Krishan Evans Instructions Print Language: Tamazight Discharge Orders/Prescriptions Prescriptions: New oxycodone-acetaminoph en [Endocet] 5-325 mg tablet 1 tab PO Q4H MDD 6 PRN (Reason: pain) 5 Days Qty: 20 0RF No Action calcium citrate-vitamin D3 [Calcium Citrate + D] 315 mg-5 mcg (200 unit) tablet 2 tab PO QHS multivitamin Capsule 2 cap PO DAILY mecobalamin (vitamin B12) 1,000 mcg tablet,disintegrating 1,500 mcg SL DAILY Rx Instructions: place tablet under tongue and allow to dissolve for at least30 secs before swallowing amlodipine 5 mg tablet 5 mg PO DAILY metoprolol succinate 25 mg tablet extended release 24 hr 25 mg PO DAILY pantoprazole [Protonix] 20 mg tablet,delayed release (DR/EC) 40 mg PO DAILY gabapentin 100 mg capsule 100 mg PO BID aspirin [Adult Aspirin Regimen] 81 mg tablet,delayed release (DR/EC) 81 mg PO DAILY celecoxib [Celebrex] 200 mg Capsule 200 mg PO BID cholecalciferol (vitamin D3) [Vitamin D3] 10 mcg (400 unit) Capsule 10 mcg PO DAILY magnesium Tablet 1 tab PO QHS trazodone 50 mg tablet 100 mg PO QHS fiber Capsule 2 cap PO QHS Other Ambulatory Orders: 12 Lead EKG (Routine) Timeframe: 20240330 Facility: [facility] - Location: Cardiovascular Services Ordered By: Dr. Krishan Evans Referrals / Follow Up: Renzo Beatty DO [Primary Care Provider] - Ernesto Ramirez MD [Med Staff - Active Staff] - Disposition Disposition (needs filled in before D/C Order can be placed): Home, Self Care 04/07/24 08 Ernesto Ramirez MD CC: Dr. Krishan Evans MD; Dr. Renzo Beatty DO Signed Normal [facility] MR/POSTOP.[facility]Y 04-07-2024 MR/POSTOP.[facility] Medical Records Department [address] [place] [address] Anesthesia Postop Eval I 04/07/24 0930 MR#: [id number] Acct: [id number] Name: OZIEL BURTON Rep #: [id number] : 1970 53 From: Wander Cervantes CRNA PCP: Dr. Renzo Beatty DO Status:REG SDC Y Race: C Location: [place] [address] Anesthesia: Postop Eval I Current Vital Signs Temperature: 97.2 F Pulse Rate: 59 Blood Pressure: 150/96 Respiratory Rate: 16 Pulse Ox: 94 Oxygen Delivery Method: Room Air Assessment Airway patent: Yes Spontaneous unlabored respirations: Yes Mental status: Awake and Calm nausea: No Vomiting: No Anesthesia Complication: No Fluid Hydration Crystalloid volume administer (ml): 1,000 Total IV fluid infused: 1,000 Progress Note Anesthesia document: Postop Eval 1 completed: Yes 04/07/24 0931 Date Wander Blough INSPECTOR AUTOMATIC TYPEWRITER Cosigner Signature: Date CC: Signed Normal [facility] MR/[id number] 04-07-2024 [facility] Medical Records Department [address] [place] [address] Anesthesia Postop Eval II 04/07/24 1127 MR#: [id number] Acct: [id number] Name: OZIEL BURTON Rep #: [id number] : 1970 53 From: Frederick Cuevas MD PCP: Dr. Renzo Beatty, DO Status:[facility] Y Race: C [place] [facility] [place]esthesia Postop Eval I Sum Postop Eval Completion status Anesthesia document: Postop Eval 1 completed: Yes Anesthesia Postop Eval I Summary Anesthesia Postop Eval I Summary: Anesthesia Postop Eval I: Assessment Summary Airway patent Yes 04/07/24 09:31 INSPECTOR AUTOMATIC [email or web address].[email or web address] Spontaneous unlabored Yes 04/07/24 09:31 INSPECTOR AUTOMATIC [email or web address].JBLOU respirations Mental status Awake,Calm 04/07/24 09:31 INSPECTOR AUTOMATIC [email or web address].JBLOU nausea No 04/07/24 09:31 INSPECTOR AUTOMATIC [email or web address].JBLOU Vomiting No 04/07/24 09:31 INSPECTOR AUTOMATIC [email or web address].JBLOU Anesthesia Postop Eval I: Fluid Summary Crystalloid volume administer 1,000 04/07/24 09:31 INSPECTOR AUTOMATIC [email or web address].JBLOU (ml) Colloids volume administered ( ml) Blood Product volume administered (ml) Total IV fluid infused 1,000 04/07/24 09:31 INSPECTOR AUTOMATIC TYPEWRITERVIKAS Anesthesia Postop Eval I: Summary Notes Anesthesia Complication No 04/07/24 09:31 INSPECTOR AUTOMATIC TYPEWRITER.MNAAVLOMarah Anesthesia Complication Comment: Post-operative progress note Anesthesia: Postop Eval II Evaluation Mental status: Awake Pain Level: 0 nausea: No Vomiting: No 04/07/24 1127 Date Frederick Barreto Signature: Date CC: Signed Normal [facility] Operative Reporton 4 Operative Report [facility] Medical Records Department [address] [place] [address] Operative Report 04/07/2420 MR#: [id number] Acct: [id number] Name: OZIEL BURTON Rep #: [id number] : 1970 53 From: Ernesto Ramirez MD PCP: Dr. Renzo Beatty, DO Status:[facility] Location: [place] [address] Problems Associated Problem List Diagnoses (1) Tendinitis of both rotator cuffs: (2) Left shoulder pain: Procedures Musculoskeletal 20xxx-29xxx: Other Procedure See Report Operative Report (Standard) Operative Information Date of Procedure: 04/07/24 Pre-Operative Diagnosis: L shoulder impingement syndrome, bursitis Post-Operative Diagnosis: same Surgery/Procedure Performed: L shoulder arthroscopy, subacromial decompression, debridement. lobster catcher: Yes Silk Conditioner: brooks fox Tasks completed by first beater: Retracting Additional medical assistant supervisor?: No Type of Anesthesia: Block,Regional and General RN Documented Start/Stop Times: Operation Date: 04/07/24 07:30 Case Time Into Pre-Op 04/07/24 05:45 Anesthesia Start 04/07/24 07:27 Into Room 04/07/24 07:27 Out of Pre-Op 04/07/24 07:27 Procedure Start 04/07/24 07:50 Procedure End 04/07/24 08:14 Anesthesia End 04/07/24 08:26 Out of Room 04/07/24 08:26 Procedure Start Time: 07:50 Procedure Stop Time: 08:14 Select all DRAINS/GRAFTS/IMPLANT S that apply: None Estimated Blood Loss: 20 Specimen collected: No Description of surgery: Patient brought to the operating room theater. Placed supine on the table. General anesthesia induced. Patient had a block preoperatively. 3 g IV Ancef administered prior to the start of the case. Patient transferred to the left side up lateral decubitus beanbag positioner. Opted not to place axillary roll as there was good padding they are ready. All bony prominences padded. SCDs on the leg. Upper extremity prepped and draped in the usual sterile fashion allowing over 3 minutes drying time prior to draping. 10 pounds of inline traction with the arm in 40 degrees duction was used. Preoperative timeout performed to confirm the site patient and the surgery. Began by inserting the arthroscope into the intra-articular portion of the shoulder through a standard posterior arthroscopy portal. Established an anterior portal through the rotator interval using inside out spinal needle localization. Did a full diagnostic arthroscopy. Cartilage on the glenoid and humeral head appeared normal. Undersurface of the supraspinatus tendon and infraspinatus tendon appeared normal. Normal axillary recess. Normal bare area. Biceps attachment appeared normal as did the labrum. On the undersurface of the long head of the biceps there was some minor fraying for about 10% cross-sectional area I gently debrided this as well as some minor upper border fraying of the subscapularis interstitial fraying but attachment site footprint was normal. Inserted the arthroscope into the subacromial space. Took arthroscopy pictures throughout. Established lateral portal. There is moderate amount of bursitis. I removed completely of the bursa. Did a partial takedown of the CA ligament. I did decompression down to flat margins using a high-speed kemar instrument by about 3 mm of the acromion under surface. I used the probe on the rest of the rotator cuff tendon to confirm no tears. Case terminated arthroscope withdrawn. Wounds cleaned with wet dry dressing followed by closed with 1 portal site with 3-0 Monocryl and Steri-Strips. This was followed by Adaptic 4 x 4 gauze ABD dressing cloth tape and an abduction pil low sling for the upper extremity. Patient woken up from the general anesthetic transferred off the operating table taken to postanesthetic care unit in stable condition. All sponge needle instrument counts were correct no complications. Plan for the patient discharged home according to day surgery criteria follow-up in the office in 2 days time. CPT 90691, 09991 Surgical Findings: impingement, bursitis, tendonitis, partial fraying biceps and subscap Complications Complications: No Admit VTE Documentation VTE Present on Admission: No VTE Mechan Device Prophylaxis: SCD's VTE Pharm Prophylaxis ordered?: No Reason prophylaxis not ordered: Treatment Not Indicated 04/07/24 0832 Cosigner Signature (if applicable): CC: Dr. Krishan Evans MD; Dr. Renzo Baetty DO; Dr. Ernesto Ramirez MD Signed Normal [facility] Orthopedic Visit Reporton Orthopedic Visit Report [facility] [address] [place] [address] OFFICE VISIT Date of Service: 04/05/24 MR#: [id number] Acct: [id number] Name: OZIEL BURTON Rep #: [id number] : 1970 Provider: Dr. Jai Miranda MD Age/Sex: 53/M Location: [facility] [place] Status: Signed Intake Vital Signs 01/30/24 09:48 Height 5 ft 9 in Intake Visit Reasons: LUMBAR SPINE Chief Complaint: low back pain Accompanied by: Is patient in pain?: Yes Pain scale (1-10): 2 Allergies olmesartan medoxomil (From Benicar) Allergy (Verified 04/05/24 14:53) Itching Medications ???Medication ???Instructions ???Recorded ???Confirmed ???Type calcium 315 mg (as 2 tab PO QHS SUPPLEMENT 04/25/20 04/05/24 History citrate)-vitamin D3 5 mcg (200 unit) tablet (Calcium Citrate + D) multivitamin 2 cap PO DAILY SUPPLEMENT 04/25/20 04/05/24 History amlodipine 5 mg tablet 5 mg PO DAILY BP 08/04/20 04/05/24 History mecobalamin (vitamin B12) 1,000 1,500 mcg sublingual DAILY 08/04/20 04/05/24 History mcg disintegrating SUPPLEMENT tablet,sublingual metoprolol succinate 25 mg 25 mg PO DAILY BP 08/04/20 04/05/24 History tablet,extended release 24 hr pantoprazole 20 mg tablet,delayed 40 mg PO DAILY GERD 01/29/21 04/05/24 History release (Protonix) celecoxib 200 mg capsule (Celebrex) 200 mg PO BID PAIN 05/23/21 04/05/24 History cholecalciferol (vitamin D3) 10 10 mcg PO DAILY SUPPLEMENT 01/08/22 04/05/24 History mcg (400 unit) capsule (Vitamin D3) magnesium 1 tab PO QHS SUPPLEMENT 01/08/22 04/05/24 History gabapentin 100 mg capsule 100 mg PO BID PAIN 02/11/22 04/05/24 History aspirin 81 mg tablet,delayed 81 mg PO DAILY SUPPLEMENT 10/02/22 04/05/24 History release (Adult Aspirin Regimen) fiber 2 cap PO QHS 02/03/24 04/05/24 History trazodone 50 mg tablet 100 mg PO QHS to sleep through the 02/03/24 04/05/24 History night PFSH Medical History History of edema Tendinosis of left shoulder Strain of right hand Smoker Acute bronchitis, unspecified Contact with and (suspected) exposure to other viral communicable diseases 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 Traumatic open wound of right lower leg Chronic wound of extremity Degenerative disc disease Varicose veins with inflammation History of hemorrhoids Hypertension GERD (gastroesophageal reflux disease) History of deep vein thrombosis History of diabetes mellitus CPAP (continuous positive airway pressure) dependence Obstructive sleep apnea Arthritis Obesity (BMI 35.0-39.9 without comorbidity) Wears glasses Alcohol use History of steroid therapy DVT (deep venous thrombosis) Back pain Gastric reflux CPAP (continuous positive airway pressure) dependence Leg cramps History of echocardiogram History of stress test Hypertension Varicose veins of right lower extremity Lab test negative for COVID-19 virus Disorder of uvula Diabetes Hemorrhoids Arthritis Surgical History History of bilateral knee arthroplasty History of root canal procedure Hx of knee surgery Hx of arthroplasty Hx of gastric bypass Hx of knee surgery Hx of colonoscopy History of tonsillectomy History of gastric restrictive surgery History of shoulder surgery History of arthroscopic knee surgery History of umbilical hernia repair History of surgical removal of ganglion cyst hx of gastric sleeve H/O shoulder surgery H/O hernia repair H/O knee surgery H/O foot surgery Deviated septum History of tonsillectomy Family History Other Breast cancer Social History Smoking Status: Current some day smoker tobacco type: cigars alcohol intake: current alcohol intake frequency: holidays/special occasions only HPI LUMBAR SPINE Details: This documentation accurately reflects the service provided and the decisions made by me, Dr. Jai Miranda MD 04/05/24 3500. Part of today???s visit was documented by Isabella RAMEY, acting as scribe. OZIEL BURTON is a 53 year old M here today for MRI review of his lumbar spine. He denies any changes today. Oziel continues to have low back pain and bilateral buttock pain and difficulty walking distances with legs feeling heavy. His symptoms seem to be equal on both sides. He denies any anterior thigh pain but does mention numbness bilaterally after standing for long period of time. 01/30/24: OZIEL BURTON is a 53 year old M here today for low back pain. Pt. was seen by Dr. Gamez last October who had gone over his lumbar MRI at that time. Pt. advises he has been experiencing low back pain for 15 years and has progr (more content not included)... Normal [facility] Dexa Bone Density Studyon Dexa Bone Density Study [facility] Imaging Services [address] [place] [address] Dexa Bone Density Study MR#: [id number] Acct: [id number] Name: OZIEL BURTON Rep #: [id number] : 1970 M 53 From: Thor tolbert MD PCP: Dr. Renzo Beatty DO Status: REG [facility] Study: Dexa Bone Density Study Date of Exam: 03/31/24 Exam# [id number] Ordering Dr: Renzo Beatty DO [id number] STUDY: DUAL ENERGY X-RAY ABSORPTIOMETRY / DXA REASON FOR EXAM: Male, 53 years old. Z79.52 TECHNIQUE: Bone Mineral Density (BMD) measurements of lumbar spine and bilateral hips were obtained. COMPARISON: None. FINDINGS: Lumbar Spine (L1-L4): g/cm2 (1.095) / T-score (0.0) / Z-score (0.5) Findings are suggestive of normal bone density with a low fracture risk. Left Femur Total: g/cm2 (1.042) / T-score (0.1) / Z-score (0.5) Left Femoral Neck: g/cm2 (0.712) / T-score (-1.6) / Z-score (-0.7) Right Femur Total: g/cm2 (1.038) / T-score (0.0) / Z-score (0.4) Right Femoral Neck: g/cm2 (0.689) / T-score (-1.8) / Z-score (-0.9) BD/Dexa Bone Density Study IMPRESSION: The patient is considered osteopenic as outlined below according to World [employer]io Organization (WHO) criteria with a moderate fracture risk. Reference Information: The T-score is the number of standard deviations above or below the standard which is normal for young adults at their peak bone mineral density. The World Health Organization (WHO) interprets the T-scores as follows: Above -1 Normal bone density Between -1 and -2.5 Osteopenia Equal to / or below -2.5 Osteoporosis As a practical clinical guideline, osteopenia may be graded as follows: Mild -1 through -1.5 Moderate -1.6 through -2.0 Severe -2.1 through -2.4 The Z-score is the number of standard deviations above or below age-matched controls. A Z-score of less than -1.5 would be considered abnormal. References: 1. NIH Osteoporosis and Related Bone Diseases www osteo.org 2. International Society for Clinical Densitometry www iscd.org 3. National Osteoporosis Foundation www nof.org Electronically Signed: Thor Garcia MD at 13:47 EST , CC: Dr. Renzo Beatty DO Court Clerk: Signed [facility] 12 Lead EKGon 03-29-2024 12 Lead EKG [facility] Cardiovascular Services [address] [place] [address] 12 Lead EKG 03/29/24 0929 MR#: [id number] Acct: [id number] Name: OZIEL BURTON Rep #: [id number] : 1970 53 From: Rickey Winkler MD Attending Dr: Dr. Ernesto Ramirez MD Status: MT E SDC Ordering Dr: Ernesto Ramirez MD Date: 03/29/24 [place] [facility] [place]: M C Admitted: Test Reason : PREOP Blood Pressure : */* mmHG Vent. Rate : 55 BPM Atrial Rate : 55 BPM P-R Int : 164 ms QRS Dur : 84 ms QT Int : 434 ms P-R-T Axes : 23 -3 10 degrees QTcB Int : 415 ms Sinus bradycardia with sinus arrhythmia Otherwise normal ECG Confirmed by Rickey Winkler ([id number]), restaurant expeditor KARLA LOU ([id number]) on 03/30/2024 5:58:00 AM Referred By: Ernesto Ramirez Confirmed By: Rickey Winkler 03/30/24 0558 Date Rickey Winkler MD CC: Dr. Rezno Beatty DO; Dr. Ernesto Ramirez MD Signed [facility] CBC-Complete Blood Cnt No Di ffon 03-29-2024 Erythrocyte distribution width (RBC) [Ratio] 13.3 % Normal 11.6-14.6 [facility] Comment on above: Performed By: #### L 100.0500 ####[facility] [address] [place], [address] Hematocrit (Bld) [Volume fraction] 45.0 % Normal 40-54 [facility] Comment on above: Performed By: #### L 100.0500 ####[facility] [address] [place], [address] Hemoglobin (Bld) [Mass/Vol] 15.0 g/dL Normal 13.0-16.5 [facility] Comment on above: Performed By: #### L 100.0500 ####[facility] [address] [place], [address] MCH (RBC) [Entitic mass] 30.2 pg Normal 27.0-32.0 [facility] Comment on above: Performed By: #### L 100.0500 ####[facility] [address] [place], [address] MCHC (RBC) [Mass/Vol] 33.3 g/dL Normal 32-36 [facility] Comment on above: Performed By: #### L 100.0500 ####[facility] [address] [place], [address] MCV (RBC) [Entitic vol] 90.5 fL Normal 80-94 [facility] Comment on above: Performed By: #### L 100.0500 ####[facility] [address] [place], [address] Platelet mean volume (Bld) [Entitic vol] 10.8 fL Normal 6.2-12.0 [facility] Comment on above: Performed By: #### L 100.0500 ####[facility] [address] [place], [address] Platelets (Bld) [#/Vol] 184 10*3/uL Normal 150-450 [facility] Comment on above: Performed By: #### L 100.0500 ####[facility] [address] [place], [address] RBC (Bld) [#/Vol] 4.97 10*6/uL Normal 4.6-6.2 [facility] Comment on above: Performed By: #### L 100.0500 ####[facility] [address] [place], [address] RDW SD 43.4 fl Normal 35.1-43.9 [facility] Comment on above: Performed By: #### L 100.0500 ####[facility] [address] [place], [address] WBC (Bld) [#/Vol] 6.0 10*3/uL Normal 4.4-11.0 [facility] Comment on above: Performed By: #### L 100.0500 ####[facility] [address] [place], [address] Erythrocyte distribution wid th ratioOrdered By: Krishan Evans on 03-29-2024 Erythrocyte distribution width (RBC) [Ratio] 13.3 % 11.6-14.6 [facility] Erythrocyte distribution wid th standard deviationOrdered By: Krishan Evans on 03-29-2024 Erythrocyte distribution width (RBC) [Entitic vol] 43.4 fL 35.1-43.9 [facility] Hematocrit Auto (Bld) [Volum e fraction]Ordered By: Krishan Evans on 03-29-2024 Hematocrit (Bld) [Volume fraction] 45.0 % 40-54 [facility] Hemoglobin measurementOrdere d By: Krishan Evans on 03-29-2024 Hemoglobin (Bld) [Mass/Vol] 15.0 g/dL 13.0-16.5 [facility] MCV (mean corpuscular volume ) determinationOrdered By: Krishan Evans on 03-29-2024 MCV (RBC) [Entitic vol] 90.5 fL 80-94 [facility] Mean corpuscular hemoglobin (MCH) determinationOrdered By: Krishan Evans on 03-29-2024 MCH (RBC) [Entitic mass] 30.2 pg 27.0-32.0 [facility] Mean corpuscular hemoglobin concentration (MCHC) determinationOrdered By: Krishan Evans on 03-29-2024 MCHC (RBC) [Mass/Vol] 33.3 g/dL 32-36 [facility] Mean platelet volume determi nationOrdered By: Krishan Evans on 03-29-2024 Platelet mean volume (Bld) [Entitic vol] 10.8 fL 6.2-12.0 [facility] Platelet countOrdered By: Melvin on 03-29-2024 Platelets (Bld) [#/Vol] 184 10*3/uL 150-450 [facility] RBC Auto (Bld) [#/Vol]Ordere d By: Krishan Evans on 03-29-2024 RBC (Bld) [#/Vol] 4.97 10*6/uL 4.6-6.2 [facility] White blood cell (WBC) count Ordered By: Krishan Evans on 03-29-2024 WBC (Bld) [#/Vol] 6.0 10*3/uL 4.4-11.0 [facility] Spine Lumbar (Routine)on Spine Lumbar (Routine) [facility] Imaging Services [address] [place] [address] [id number] Spine Lumbar (Routine) MR#: [id number] Acct: [id number] Name: OZIEL BURTON Rep #: [id number] : 1970 M 53 From: Irvin germain DO PCP: Dr. Renzo Beatty, DO Status: REG CLI Study: Spine Lumbar (Routine) Date of Exam: 03/26/24 Exam# [id number] Ordering Dr: Jai Miranda MD [id number] EXAM: MR LUMBAR SPINE WITHOUT INTRAVENOUS CONTRAST CLINICAL INDICATION: pain TECHNIQUE: Multiplanar and multisequence MR images of the lumbar spine without intravenous contrast. COMPARISON: Lumbar spine radiographs, 01/30/2024 and MRI lumbar spine, 10/21/2022. FINDINGS: VERTEBRAE: Subcentimeter hemangioma within the L5 vertebral body and subcentimeter hemangioma within the T12 vertebral body. No suspicious marrow space signal abnormalities are otherwise identified. Multilevel endplate osteophytosis and facet arthrosis. No fracture. Bilateral L5 spondylolysis with grade 1 anterolisthesis of L5 upon S1 measuring approximately 9 mm. SPINAL CORD: No significant abnormality. Normal position and signal intensity of the conus medullaris. SOFT TISSUES: No significant abnormality. DISCS/SPINAL CANAL/NEURAL FORAMINA: T12-L1: Moderate bilateral facet arthrosis. No disc herniation, spinal canal stenosis, or neural foraminal narrowing. L1-L2: Mild disc bulge and moderate bilateral facet arthrosis. Mild spinal canal and bilateral neural foraminal narrowing. L2-L3: Mild disc bulge and moderate bilateral facet arthrosis. No significant spinal canal stenosis. Mild bilateral neural foraminal narrowing. L3-L4: Disc bulge and superimposed central disc herniation. Moderate to severe bilateral facet arthrosis. Mild to moderate bilateral neural foraminal narrowing and mild spinal canal stenosis. L4-L5: Disc bulge and superimposed central disc herniation. Moderate bilateral facet arthrosis. No significant spinal canal stenosis. Mild right greater than left neural foraminal narrowing. L5-S1: Anterolisthesis as described. Disc uncovering/pseudobulg e with superimposed central disc herniation. Severe bilateral facet arthrosis. Mild spinal canal stenosis and moderate to severe bilateral neural foraminal narrowing. Bilateral L5 nerve root impingement. MRI/Spine Lumbar (Routine) IMPRESSION: 1. Bilateral L5 spondylolysis with grade 1 anterolisthesis of L5 upon S1 measuring approximately 9 mm. This appears similar to the prior examination. 2. Degenerative changes throughout the lumbar spine detailed above, similar to the prior examination. 3. Bilateral L5 nerve root impingement. No additional nerve root impingement or spinal cord signal abnormality. Electronically Signed: Irvin Gallego DO at 23:51 EST , CC: Dr. Jai Miranda MD; Dr. Renzo Beatty DO Court Clerk: Signed Normal [facility] CCP IgG Antibodieson 024 CCP IgG Ab. 6 units Normal 0-19 [facility] Comment on above: Result Comment: Nega tive <20 Weak positive 20 - 39 Moderate positive 40 - 59 Strong positive >59 Performed at: [address] [id number] Community Outreach Coordinator: Walter Olmos PhD, Phone: [phone] Performed By: #### L 4600.0100, L505.7010, L101.9900, L501.1400, L501.6710 #### [facility] Laboratory [address] [place], [place], [id number] CRPon 03-05-2024 C-REACTIVE PROT < 2.90 Normal 0.0-3.0 [facility] Comment on above: Result Comment: C-Re active Protein (CRP) provides useful information for the diagnosis, therapy and monitoring of inflammatory processes and associated diseases. For the evaluation of Relative Risk for Cardiovascular Disease, a High Sensitivity CRP (HSCRP) should be ordered. Performed By: #### L 4600.0100, L505.7010, L101.9900, L501.1400, L501.6710 #### [facility] [address] [place], [address] Erythrocyte Sed Rateon 03-05 SED RATE < 1 Normal 0-20 [facility] Comment on above: Performed By: #### L 4600.0100, L505.7010, L101.9900, L501.1400, L501.6710 #### [facility] [address] [place], [place], [id number] Rheumatoid Factoron 03-05-20 24 RHEUMATOID FAC < 10.0 Normal <15 [facility] Comment on above: Performed By: #### L 4600.0100, L505.7010, L101.9900, L501.1400, L501.6710 #### [facility] [address] [place], [address] Uric Acidon 03-05-2024 URIC 5.1 mg/dL Normal 3.5-7.2 [facility] Comment on above: Result Comment: The drugs N-Acetylcysteine and Metamizole may falsely depress this assay. Performed By: #### L 4600.0100, L505.7010, L101.9900, L501.1400, L501.6710 #### [facility] [address] [place], [address] Basophil percentageOrdered B y: Renzo Beatty on 05-14-2023 Cholesterol [Mass/Vol] 143 mg/dL <200 [facility] Comment on above: <200 mg/dL Desirable 200-240 mg/dL Borderline >240 mg/dL High Risk Triglyceride [Mass/Vol] 162 mg/dL <199 [facility] Comment on above: The drugs N-Acetylcy steine and Metamizole may falsely depress this assay.Serum Triglycerides Reference Interval Normal <150 mg/dL Borderline high 150 - 199 mg/dL High 200 - 499 mg/dL Very High > or = 500 mg/dL High density lipoprotein (HD L) measurementOrdered By: Renzo Beatty on 05-14-2023 Cholesterol in HDL (Body fld) [Mass/Vol] 42 mg/dL >40 [facility] Comment on above: The drugs N-Acetylcy steine and Metamizole may falsely depress this assay. Reference Range HDL <40 mg/dL Low HDL Cholesterol HDL >or= 60 mg/dL High HDL Cholesterol Low density lipoprotein (LDL ) cholesterol measurementOrdered By: Renzo Beatty on 05-14-2023 Cholesterol in LDL (Body fld) [Moles/Vol] 69 mg/dL 0-130 [facility] Screening prostate specific antigen (PSA) measurementOrdered By: Renzo Beatty on 05-14-2023 Prostate specific Ag IA [Mass/Vol] 0.46 ng/mL 0.00-4.00 [facility] Comment on above: This test was perfor med using the TPSA assay method for the[facility] chemistry system. Values obtained with differentassay methods cannot be used interchangably.When changing PSA assays in the course of monitoring apatient, additional sequential testing should be carriedout to confirm baseline values. Very low density lipoprotein (VLDL) cholesterol measurementOrdered By: Renzo Beatty on 05-14-2023 Cholesterol in VLDL Calc [Moles/Vol] 32 mg/dL 5-40 [facility] Whole blood hemoglobin A1c/t otal hemoglobin ratio (mass fraction)Ordered By: Renzo Beatty on 05-14-2023 HbA1c (Bld) [Mass fraction] 4.9 % 3.8-5.6 [facility] Comment on above: Normal < 5.7 % Predi abetic 5.7 - 6.4 % Diabetic >or= 6.5 % Please note range changes. Basophil percentageOrdered B y: Jason Fritz on 01-31-2023 WBC (Bld) [#/Vol] 7.6 10*3/uL 4.4-11.0 [facility] Blood erythrocytes count (nu mber/volume)Ordered By: Jason Fritz on 01-31-2023 RBC (Bld) [#/Vol] 4.19 10*6/uL 4.6-6.2 [facility] Blood hemoglobin measurement (mass/volume)Ordered By: Jason Fritz on 01-31-2023 Hemoglobin (Bld) [Mass/Vol] 13.0 g/dL 13.0-16.5 [facility] Blood platelet mean volumeOr dered By: Jason Fritz on 01-31-2023 Platelet mean volume (Bld) [Entitic vol] 10.6 fL 6.2-12.0 [facility] Determination of erythrocyte mean corpuscular volume (MCV)Ordered By: Jason Fritz on 01-31-2023 MCV (RBC) [Entitic vol] 90.2 fL 80-94 [facility] Hematocrit Auto (Bld) [Volum e fraction]Ordered By: Jason Fritz on 01-31-2023 Hematocrit (Bld) [Volume fraction] 37.8 % 40-54 [facility] Laboratory - Hematology and Cell countsOrdered By: Jason Fritz on 01-31-2023 Erythrocyte distribution width (RBC) [Entitic vol] 43.8 fL 35.1-43.9 [facility] Erythrocyte distribution width (RBC) [Ratio] 13.3 % 11.6-14.6 [facility] MCH (RBC) [Entitic mass] 31.0 pg 27.0-32.0 [facility] MCHC Auto (RBC) [Mass/Vol]Or dered By: Jason Fritz on 01-31-2023 MCHC (RBC) [Mass/Vol] 34.4 g/dL 32-36 [facility] Comment on above: Delta: 32.3 on 01/30 Platelets bldOrdered By: Migue Fritz on 01-31-2023 Platelets (Bld) [#/Vol] 184 10*3/uL 150-450 [facility] Basophil percentageOrdered B y: Jason Fritz on 01-29-2023 Chloride [Moles/Vol] 108 mmol/L 98-107 [facility] Glucose [Mass/Vol] 151 mg/dL 74-106 [facility] Comment on above: Fasting Glucose resu lt greater than or equal to 126 mg/dL suggests DIABETES MELLITUS per A.D.A. criteria. Potassium [Moles/Vol] 4.1 mmol/L 3.5-5.1 [facility] Sodium [Moles/Vol] 138 mmol/L 136-145 [facility] Laboratory - Chemistry and C hemistry - challengeOrdered By: Jason Fritz on 01-29-2023 CO2 [Moles/Vol] 24.0 mmol/L 21.0-32.0 [facility] Urea nitrogen/Creatinine [Mass ratio] 17.0 mg/mg 10-20 [facility] No Panel InformationOrdered By: Jason Fritz on 01-29-2023 Estimated Creatinine Clearance Calc 75.40 ml/min [facility] Estimated GFR (MDRD) Amer 88 mL/min >60 [facility] Comment on above: GFR Calc Estimated GFR (MDRD) Non-Af Amer 72 mL/min >60 [facility] Comment on above: Non- GFR Calc Serum or plasma calcium chel urement (mass/volume)Ordered By: Jason Fritz on 01-29-2023 Calcium [Mass/Vol] 8.8 mg/dL 8.5-10.1 [facility] Serum or plasma creatinine m easurement (mass/volume)Ordered By: Jason Fritz on 01-29-2023 Creatinine [Mass/Vol] 1.12 mg/dL 0.70-1.30 [facility] Comment on above: The validity of the calculated GFR & GFRAA in patients over 70 years has not been determined. Clinical correlation is essential. Serum or plasma urea nitroge n measurement (mass/volume)Ordered By: Jason Fritz on 01-29-2023 Urea nitrogen [Mass/Vol] 19 mg/dL 7-18 [facility] Thin prep Papanicolaou smear with manual screeningOrdered By: Jason Fritz on 01-29-2023 Thin prep Papanicolaou smear with manual screening 6 5-15 [facility] Glucose Glucometer (BldC) [M ass/Vol]Ordered By: Jason Fritz on 01-28-2023 Glucose [Mass/Vol] 81 mg/dL 74-106 [facility] Comment on above: MANAGEMENT OF PATIEN T CARE PER NURSING PROTOCOL Absolute lymphocyte countOrd ered By: Jason Fritz on 01-15-2023 Lymphocytes Auto (Unsp spec) [#/Vol] 1.68 10*3/uL 0.83-4.51 [facility] Activated partial thrombopla stin time (aPTT) in platelet poor plasma by coagulation aOrdered By: Jason Fritz on 01-15-2023 aPTT Coag (PPP) [Time] 25.4 s 24.1-36.2 [facility] Basophil percentageOrdered B y: Jason Fritz on 01-15-2023 Basophils/100 WBC (Bld) 0.7 % 0-1 [facility] Eosinophils/100 WBC (Bld) 2.8 % 0-5 [facility] Neutrophils (Bld) [#/Vol] 3.6 10*3/uL 2.0-7.7 [facility] Neutrophils/100 WBC (Bld) 59.8 % 47-70 [facility] Blood lymphocytes/100 leukoc ytesOrdered By: Jason Fritz on 01-15-2023 Lymphocytes/100 WBC (Bld) 27.8 % 19-41 [facility] Blood monocytes/100 leukocyt esOrdered By: Jason Fritz on 01-15-2023 Monocytes/100 WBC (Bld) 8.6 % 0-10 [facility] INR in Blood by Coagulation assayOrdered By: Jason Fritz on 01-15-2023 INR Coag (Bld) [Relative time] 1.0 {INR} [facility] Laboratory - Chemistry and C hemistry - challengeOrdered By: Mayco Clarke on 01-15-2023 Magnesium [Mass/Vol] 2.2 mg/dL 1.6-2.6 [facility] Laboratory - CoagulationOrde red By: Jason Fritz on 01-15-2023 PT Coag (PPP) [Time] 12.7 s 11.7-14.9 [facility] Laboratory - Hematology and Cell countsOrdered By: Jason Fritz on 01-15-2023 Immature granulocytes/100 WBC (Bld) 0.300 % 0.0-0.9 [facility] Comment on above: IG% - Immature Granu locytes (promyelocytes, myelocytes and metamyelocytes) > 1% indicates that a LEFT SHIFT is Present. Nucleated RBC/100 WBC (Bld) [Ratio] 0 % 0-5 [facility] No Panel InformationOrdered By: Jason Fritz on 01-15-2023 Nasal Screen MRSA/MSSA [facility] Fructosamine 172 umol/L 0-285 [facility] Comment on above: Published reference interval for apparently healthysubjects between age 20 and 60 is 205 - 285 umol/L and in apoorly controlled diabetic population is 228 - 563 umol/Lwith a mean of 396 umol/L.Performed at: [address] [id number] Director: Walter Olmos PhD, Phone: [phone] Whole blood hemoglobin A1c/t otal hemoglobin ratio (mass fraction)Ordered By: Jason Fritz on 01-15-2023 HbA1c (Bld) [Mass fraction] 5.1 % 3.8-5.6 [facility] Comment on above: Normal < 5.7 % Predi abetic 5.7 - 6.4 % Diabetic >or= 6.5 % Please note range changes. Basophil percentageOrdered B y: Dr. Fritz on 08-08-2022 WBC (Bld) [#/Vol] 7.8 10*3/uL 4.4-11.0 [facility] Blood erythrocytes count (nu mber/volume)Ordered By: Dr. Fritz on 08-08-2022 RBC (Bld) [#/Vol] 4.17 10*6/uL 4.6-6.2 [facility] Blood hemoglobin measurement (mass/volume)Ordered By: Dr. Fritz on 08-08-2022 Hemoglobin (Bld) [Mass/Vol] 12.7 g/dL 13.0-16.5 [facility] Blood platelet mean volumeOr dered By: Dr. Fritz on 08-08-2022 Platelet mean volume (Bld) [Entitic vol] 10.3 fL 6.2-12.0 [facility] Determination of erythrocyte mean corpuscular volume (MCV)Ordered By: Dr. Fritz on 08-08-2022 MCV (RBC) [Entitic vol] 91.1 fL 80-94 [facility] Hematocrit Auto (Bld) [Volum e fraction]Ordered By: Dr. Fritz on 08-08-2022 Hematocrit (Bld) [Volume fraction] 38.0 % 40-54 [facility] Laboratory - Hematology and Cell countsOrdered By: Dr. Fritz on 08-08-2022 Erythrocyte distribution width (RBC) [Entitic vol] 45.1 fL 35.1-43.9 [facility] Erythrocyte distribution width (RBC) [Ratio] 13.5 % 11.6-14.6 [facility] MCH (RBC) [Entitic mass] 30.5 pg 27.0-32.0 [facility] MCHC Auto (RBC) [Mass/Vol]Or dered By: Dr. Fritz on 08-08-2022 MCHC (RBC) [Mass/Vol] 33.4 g/dL 32-36 [facility] Platelets bldOrdered By: Dr. Fritz on 08-08-2022 Platelets (Bld) [#/Vol] 166 10*3/uL 150-450 [facility] Basophil percentageOrdered B y: Dr. Fritz on 08-06-2022 Chloride [Moles/Vol] 109 mmol/L 98-107 [facility] Glucose [Mass/Vol] 118 mg/dL 74-106 [facility] Comment on above: Fasting Glucose resu lt from 100 to 125 mg/dL suggests IMPAIRED HOMEOSTASIS per A.D.A. criteria. Potassium [Moles/Vol] 4.5 mmol/L 3.5-5.1 [facility] Sodium [Moles/Vol] 138 mmol/L 136-145 [facility] Laboratory - Chemistry and C hemistry - challengeOrdered By: Dr. Fritz on 08-06-2022 CO2 [Moles/Vol] 29.0 mmol/L 21.0-32.0 [facility] Urea nitrogen/Creatinine [Mass ratio] 14.6 mg/mg 10-20 [facility] No Panel InformationOrdered By: Dr. Fritz on 08-06-2022 Estimated Creatinine Clearance Calc 79.32 ml/min [facility] Estimated GFR (MDRD) Amer 97 mL/min >60 [facility] Comment on above: GFR Calc Estimated GFR (MDRD) Non-Af Amer 80 mL/min >60 [facility] Comment on above: Non- GFR Calc Serum or plasma calcium chel urement (mass/volume)Ordered By: Dr. Fritz on 08-06-2022 Calcium [Mass/Vol] 9.1 mg/dL 8.5-10.1 [facility] Serum or plasma creatinine m easurement (mass/volume)Ordered By: Dr. Fritz on 08-06-2022 Creatinine [Mass/Vol] 1.03 mg/dL 0.70-1.30 [facility] Comment on above: The validity of the calculated GFR & GFRAA in patients over 70 years has not been determined. Clinical correlation is essential. Serum or plasma urea nitroge n measurement (mass/volume)Ordered By: Dr. Fritz on 08-06-2022 Urea nitrogen [Mass/Vol] 15 mg/dL 7-18 [facility] Thin prep Papanicolaou smear with manual screeningOrdered By: Dr. Fritz on 08-06-2022 Thin prep Papanicolaou smear with manual screening 0 5-15 [facility] Glucose Glucometer (BldC) [M ass/Vol]Ordered By: Dr. Fritz on 08-05-2022 Glucose [Mass/Vol] 91 mg/dL 74-106 [facility] Comment on above: MANAGEMENT OF PATIEN T CARE PER NURSING PROTOCOL No Panel InformationOrdered By: Dr. Fritz on 08-02-2022 Nasal Screen MRSA/MSSA [facility] INR in Blood by Coagulation assayOrdered By: Dr. Fritz on 07-31-2022 INR Coag (Bld) [Relative time] 1.1 {INR} [facility] Laboratory - Chemistry and C hemistry - challengeOrdered By: Dr. Clarke on 07-31-2022 Magnesium [Mass/Vol] 2.2 mg/dL 1.6-2.6 [facility] Laboratory - CoagulationOrde red By: Dr. Fritz on 07-31-2022 aPTT Coag (Bld) [Time] 26.5 s 24.1-36.2 [facility] PT Coag (PPP) [Time] 13.7 s 11.7-14.9 [facility] No Panel InformationOrdered By: Dr. Fritz on 07-31-2022 Fructosamine 197 umol/L 0-285 [facility] Comment on above: Published reference interval for apparently healthysubjects between age 20 and 60 is 205 - 285 umol/L and in apoorly controlled diabetic population is 228 - 563 umol/Lwith a mean of 396 umol/L.Performed at: [address] Director: Walter Olmos PhD, Phone: [phone] No Panel InformationOrdered By: Jsaon Fritz on 07-31-2022 Nasal Screen MRSA/MSSA [facility] Whole blood hemoglobin A1c/t otal hemoglobin ratio (mass fraction)Ordered By: Dr. Fritz on 07-31-2022 HbA1c (Bld) [Mass fraction] 5.3 % 3.8-5.6 [facility] Comment on above: Normal < 5.7 % Predi abetic 5.7 - 6.4 % Diabetic >or= 6.5 % Please note range changes. Absolute lymphocyte countOrd ered By: Dr. Beatty on 07-15-2022 Lymphocytes Auto (Unsp spec) [#/Vol] 1.81 10*3/uL 0.83-4.51 [facility] Basophil percentageOrdered B y: Dr. Beatty on 07-15-2022 Basophils/100 WBC (Bld) 0.4 % 0-1 [facility] Chloride [Moles/Vol] 110 mmol/L 98-107 [facility] Eosinophils/100 WBC (Bld) 0.9 % 0-5 [facility] Glucose [Mass/Vol] 71 mg/dL 74-106 [facility] Neutrophils (Bld) [#/Vol] 5.4 10*3/uL 2.0-7.7 [facility] Neutrophils/100 WBC (Bld) 66.2 % 47-70 [facility] Potassium [Moles/Vol] 4.0 mmol/L 3.5-5.1 [facility] Sodium [Moles/Vol] 145 mmol/L 136-145 [facility] WBC (Bld) [#/Vol] 8.2 10*3/uL 4.4-11.0 [facility] Blood erythrocytes count (nu mber/volume)Ordered By: Dr. Beatty on 07-15-2022 RBC (Bld) [#/Vol] 5.34 10*6/uL 4.6-6.2 [facility] Blood hemoglobin measurement (mass/volume)Ordered By: Dr. Beatty on 07-15-2022 Hemoglobin (Bld) [Mass/Vol] 16.0 g/dL 13.0-16.5 [facility] Blood lymphocytes/100 leukoc ytesOrdered By: Dr. Beatty on 07-15-2022 Lymphocytes/100 WBC (Bld) 22.1 % 19-41 [facility] Blood monocytes/100 leukocyt esOrdered By: Dr. Beatty on 07-15-2022 Monocytes/100 WBC (Bld) 9.9 % 0-10 [facility] Blood platelet mean volumeOr dered By: Dr. Beatty on 07-15-2022 Platelet mean volume (Bld) [Entitic vol] 10.9 fL 6.2-12.0 [facility] Determination of erythrocyte mean corpuscular volume (MCV)Ordered By: Dr. Beatty on 07-15-2022 MCV (RBC) [Entitic vol] 92.3 fL 80-94 [facility] Hematocrit Auto (Bld) [Volum e fraction]Ordered By: Dr. Beatty on 07-15-2022 Hematocrit (Bld) [Volume fraction] 49.3 % 40-54 [facility] Laboratory - Chemistry and C hemistry - challengeOrdered By: Dr. Beatty on 07-15-2022 CO2 [Moles/Vol] 32.0 mmol/L 21.0-32.0 [facility] Urea nitrogen/Creatinine [Mass ratio] 20.9 mg/mg 10-20 [facility] Laboratory - Hematology and Cell countsOrdered By: Dr. Beatty on 07-15-2022 Erythrocyte distribution width (RBC) [Entitic vol] 45.0 fL 35.1-43.9 [facility] Erythrocyte distribution width (RBC) [Ratio] 13.3 % 11.6-14.6 [facility] Immature granulocytes/100 WBC (Bld) 0.500 % 0.0-0.9 [facility] Comment on above: IG% - Immature Granu locytes (promyelocytes, myelocytes and metamyelocytes) > 1% indicates that a LEFT SHIFT is Present. MCH (RBC) [Entitic mass] 30.0 pg 27.0-32.0 [facility] Nucleated RBC/100 WBC (Bld) [Ratio] 0 % 0-5 [facility] MCHC Auto (RBC) [Mass/Vol]Or dered By: Dr. Beatty on 07-15-2022 MCHC (RBC) [Mass/Vol] 32.5 g/dL 32-36 [facility] No Panel InformationOrdered By: Dr. Beatty on 07-15-2022 Estimated GFR (MDRD) Amer 90 mL/min >60 [facility] Comment on above: GFR Calc Estimated GFR (MDRD) Non-Af Amer 74 mL/min >60 [facility] Comment on above: Non- GFR Calc Platelets bldOrdered By: Dr. Beatty on 07-15-2022 Platelets (Bld) [#/Vol] 232 10*3/uL 150-450 [facility] Serum or plasma calcium chel urement (mass/volume)Ordered By: Dr. Beatty on 07-15-2022 Calcium [Mass/Vol] 9.0 mg/dL 8.5-10.1 [facility] Serum or plasma creatinine m easurement (mass/volume)Ordered By: Dr. Beatty on 07-15-2022 Creatinine [Mass/Vol] 1.10 mg/dL 0.70-1.30 [facility] Comment on above: The validity of the calculated GFR & GFRAA in patients over 70 years has not been determined. Clinical correlation is essential. Serum or plasma urea nitroge n measurement (mass/volume)Ordered By: Dr. Betaty on 07-15-2022 Urea nitrogen [Mass/Vol] 23 mg/dL 7-18 [facility] Thin prep Papanicolaou smear with manual screeningOrdered By: Dr. Beatty on 07-15-2022 Thin prep Papanicolaou smear with manual screening 3 5-15 [facility] Laboratory - Microbiology an d Antimicrobial susceptibilityon 04-11-2022 SARS-CoV-2 (COVID-19) RNA JUANI+probe Ql (Unsp spec) Not detected [facility] No Panel Informationon 04-11 Influenza Types A,B Rapid (Clinic) Not detected [facility] Absolute lymphocyte counton 02-09-2022 Lymphocytes Auto (Unsp spec) [#/Vol] 1.37 10*3/uL 0.83-4.51 [facility] Work Phone: Basophil percentageon 2021 Basophils/100 WBC (Bld) 0.4 % 0-1 [facility] Work Phone: Bilirubin [Mass/Vol] 0.70 mg/dL 0.20-1.00 [facility] Work Phone: Comment on above: For patients on eltr ombopag therapy, use of Dimension [place] TBIL is not recommended. Chloride [Moles/Vol] 108 mmol/L 98-107 [facility] Work Phone: Cholesterol [Mass/Vol] 202 mg/dL <200 [facility] Work Phone: Comment on above: <200 mg/dL Desirable 200-240 mg/dL Borderline >240 mg/dL High Risk Eosinophils/100 WBC (Bld) 1.8 % 0-5 [facility] Work Phone: [phone] Glucose [Mass/Vol] 82 mg/dL 74-106 [facility] Work Phone: [phone] Neutrophils (Bld) [#/Vol] 3.1 10*3/uL 2.0-7.7 [facility] Work Phone: [phone] Neutrophils/100 WBC (Bld) 60.1 % 47-70 [facility] Work Phone: [phone] Potassium [Moles/Vol] 3.9 mmol/L 3.5-5.1 [facility] Work Phone: [phone] Protein [Mass/Vol] 6.8 g/dL 6.4-8.2 [facility] Work Phone: Sodium [Moles/Vol] 142 mmol/L 136-145 [facility] Work Phone: Testosterone [Mass/Vol] 679.78 ng/dL [facility] Work Phone: Comment on above: CENTRAL 90% REFERENC E RANGES MALE AGE <50 197.44 - 669.58 ng/dL MALE AGE > or = 50 187.72 - 684.19 ng/dL FEMALE AGE <50 8.38 - 35.01 ng/dL FEMALE AGE > or = 50 <7.00 - 35.92 ng/dL Effective as of 11/21/20 Triglyceride [Mass/Vol] 118 mg/dL <199 [facility] Work Phone: [phone] Comment on above: The drugs N-Acetylcy steine and Metamizole may falsely depress this assay.Serum Triglycerides Reference Interval Normal <150 mg/dL Borderline high 150 - 199 mg/dL High 200 - 499 mg/dL Very High > or = 500 mg/dL WBC (Bld) [#/Vol] 5.1 10*3/uL 4.4-11.0 [facility] Work Phone: Blood erythrocytes count (nu mber/volume)on 02-09-2022 RBC (Bld) [#/Vol] 5.12 10*6/uL 4.6-6.2 [facility] Work Phone: Blood hemoglobin measurement (mass/volume)on 02-09-2022 Hemoglobin (Bld) [Mass/Vol] 15.5 g/dL 13.0-16.5 [facility] Work Phone: [phone] Blood lymphocytes/100 leukoc yteson 02-09-2022 Lymphocytes/100 WBC (Bld) 26.9 % 19-41 [facility] Work Phone: Blood monocytes/100 leukocyt eson 02-09-2022 Monocytes/100 WBC (Bld) 10.4 % 0-10 [facility] Work Phone: Blood platelet mean volumeon 02-09-2022 Platelet mean volume (Bld) [Entitic vol] 10.7 fL 6.2-12.0 [facility] Work Phone: Determination of erythrocyte mean corpuscular volume (MCV)on 02-09-2022 MCV (RBC) [Entitic vol] 92.2 fL 80-94 [facility] Work Phone: Hematocrit Auto (Bld) [Volum e fraction]on 02-09-2022 Hematocrit (Bld) [Volume fraction] 47.2 % 40-54 [facility] Work Phone: Laboratory - Chemistry and C hemistry - challengeon 02-09-2022 ALP [Catalytic activity/Vol] 47 U/L 45-117 [facility] Work Phone: ALT [Catalytic activity/Vol] 21 U/L 16-61 [facility] Work Phone: CO2 [Moles/Vol] 28.0 mmol/L 21.0-32.0 [facility] Work Phone: Globulin (S) [Mass/Vol] 3.3 g/dL 2.2-4.2 [facility] Work Phone: Urea nitrogen/Creatinine [Mass ratio] 20.2 mg/mg 10-20 [facility] Work Phone: Laboratory - Hematology and Cell countson 02-09-2022 Erythrocyte distribution width (RBC) [Entitic vol] 43.6 fL 35.1-43.9 [facility] Work Phone: Erythrocyte distribution width (RBC) [Ratio] 12.9 % 11.6-14.6 [facility] Work Phone: Immature granulocytes/100 WBC (Bld) 0.400 % 0.0-0.9 [facility] Work Phone: Comment on above: IG% - Immature Granu locytes (promyelocytes, myelocytes and metamyelocytes) > 1% indicates that a LEFT SHIFT is Present. MCH (RBC) [Entitic mass] 30.3 pg 27.0-32.0 [facility] Work Phone: Nucleated RBC/100 WBC (Bld) [Ratio] 0 % 0-5 [facility] Work Phone: MCHC Auto (RBC) [Mass/Vol]on 02-09-2022 MCHC (RBC) [Mass/Vol] 32.8 g/dL 32-36 [facility] Work Phone: No Panel Informationon 02-09 Estimated GFR (MDRD) Amer 91 mL/min >60 [facility] Work Phone: Comment on above: GFR Calc Estimated GFR (MDRD) Non-Af Amer 75 mL/min >60 [facility] Work Phone: Comment on above: Non- GFR Calc Thyroid Stimulating Hormone (TSH) 1.25 uIU/mL 0.358-3.74 [facility] Work Phone: Vitamin B12 Level > 2000 pg/mL [phone] [facility] Work Phone: Vitamin D 25-Hydroxy 69.4 ng/mL [facility] Work Phone: Comment on above: Vitamin D 25(OH) Sta tus Range Deficiency <20 ng/mL (50nmol/L) Insufficiency 20 - 30 ng/mL (50 - 75 nmol/L) Sufficiency 30 - 100 ng/mL (75 - 250 nmol/L) Toxicity >100 ng/mL (>250 nmol/L) Platelets bldon 02-09-2022 Platelets (Bld) [#/Vol] 182 10*3/uL 150-450 [facility] Work Phone: Serum or plasma albumin chel urement (mass/volume)on 02-09-2022 Albumin [Mass/Vol] 3.5 g/dL 3.2-5.0 [facility] Work Phone: Serum or plasma albumin/glob ulin mass ratioon 02-09-2022 Albumin/Globulin [Mass ratio] 1.1 {ratio} 0.9-2.4 [facility] Work Phone: Serum or plasma calcium chel urement (mass/volume)on 02-09-2022 Calcium [Mass/Vol] 9.2 mg/dL 8.5-10.1 [facility] Work Phone: Serum or plasma cholesterol in HDL measurement (mass/volume)on 02-09-2022 Cholesterol in HDL [Mass/Vol] 57 mg/dL >40 [facility] Work Phone: Comment on above: The drugs N-Acetylcy steine and Metamizole may falsely depress this assay. Reference Range HDL <40 mg/dL Low HDL Cholesterol HDL >or= 60 mg/dL High HDL Cholesterol Serum or plasma cholesterol in VLDL measurement (mass/volume)on 02-09-2022 Cholesterol in VLDL [Mass/Vol] 24 mg/dL 5-40 [facility] Work Phone: Serum or plasma creatinine m easurement (mass/volume)on 02-09-2022 Creatinine [Mass/Vol] 1.09 mg/dL 0.70-1.30 [facility] Work Phone: Comment on above: The validity of the calculated GFR & GFRAA in patients over 70 years has not been determined. Clinical correlation is essential. Serum or plasma low density lipoprotein (LDL) cholesterol measurement (mass/volume)on 02-09-2022 Cholesterol in LDL [Mass/Vol] 121 mg/dL 0-130 [facility] Work Phone: Serum or plasma urea nitroge n measurement (mass/volume)on 02-09-2022 Urea nitrogen [Mass/Vol] 22 mg/dL 7-18 [facility] Work Phone: Thin prep Papanicolaou smear with manual screeningon 02-09-2022 Thin prep Papanicolaou smear with manual screening 18 U/L 15-37 [facility] Work Phone: Thin prep Papanicolaou smear with manual screening 6 5-15 [facility] Work Phone: No Panel Informationon 10-15 POC SARS CoV-2 Antigen Negative [facility] Work Phone: CNPMarilin 05-14-2019 CNPN Telephone ([id number]) OZIEL BURTON ([id number]) 1970 M Date Time Provider Department 05/14/19 CYRIL COMBS4 During your visit today, we recorded the following information about you: Melody Herrera 05/14/2019 3:14 PM Signed The patient called in to cancel their appt on 09/23/19 w/ Dr. Combs because the patient insurance will no longer cover their appt. Melody Herrera May 14, 2019 3:14 PM Allergies As of Date: 05/14/2019 Noted Allergy Reaction BENICAR (OLMESARTAN MEDOXOMIL) 01/09/2017 14 - Other: See Comments Comments: flushed Date Reviewed: 09/24/2018 Reviewed by: Cyril Combs - Fully Assessed Reason for Visit: Appointment Cancelled [1023] Prescriptions as of 05/14/2019 Sig: AMLODIPINE 5 MG TABLET Take 5 mg by mouth once daily. VITAMIN B-12 ORAL Take by mouth. CALCIUM CITRATE + D ORAL Take by mouth. FEXOFENADINE 180 MG TABLET Take 180 mg by mouth as neede* CHILDREN'S MULTIVIT COMPLETE * Take by mouth. PANTOPRAZOLE 40 MG TABLET,DEL* Take 40 mg by mouth once iram* CELECOXIB 200 MG CAPSULE Take 200 mg by mouth once deshawn* TRAMADOL 50 MG TABLET Take 50 mg by mouth twice deshawn* METAMUCIL CLEAR-NATURAL (INUL* Take by mouth. Problem List As Of Date 05/14/2019 Noted Resolved Adult BMI 45.0-49.9 kg/sq m ([facility]) [Z68.42] 04/14/2017 GERD (gastroesophageal reflux disease) [K21.9] 04/14/2017 Morbid obesity ([facility]) [E66.01] 08/14/2017 More... Obesity, Class III, BMI 40-49.9 (morbid obesity*09/02/2017 Encounter Status:Closed by MELODY HERRERA on 05/14/19 [facility] CNOVon 09-24-2018 OV Office Visit (AGGENS4) OZIEL BURTON ([id number]) 1970 M Date Time Provider Department 09/24/18 2:00 PM CYRIL COMBS4 During your visit today, we recorded the following information about you: Pulse Blood pressure Weight Height 56/minute 144/85 94.8 kg 1.[address], LD 09/25/2018 1:10 PM Signed 12 Month Post-op Oziel Burton 48 year old male BP 144/85 Pulse (!) 56 Ht 177.8 cm (5' 10) Wt 94.8 kg (209 lb) BMI 29.99 kg/m? SG 09/02/17 96# lost since surgery 73%EWL based on IBW w/ BMI 25 %BF: deferred Tolerating by mouth well: Yes Nausea: No Vomiting: No Constipation: No Diarrhea:No Weak/Shaky/Light-head ed: No Estimated Nutrient Intake Average of 3 days' food records: Yes 24 hour recall/Usual intake: Yes 81 protein (g) 1.1 g/KgIBW 77 liquid intake (oz) Food/beverage intolerance: none Exercise: 2x/week of PF--treadmill for 15 minutes + weight training 45-60 minutes Intake of obesity endorsing foods: 1-2 times per week Frequent grazing: no Satiety between meals: yes Attendance at support group: no, encouraged attendance Vitamins: MVI: 2, complete, in the morning B12: 1000mcg Calcium Citrate: 1200mg--2, 600mg--in the evening (taking 1-2 hours apart) Iron: N/A Written information provided and reviewed: Ten Commandments of Bariatric Nutrition journal support group schedule Reinforced Behaviors :attend support group limit caffeine/alcohol Patient brought phone daren food journal to appointment today. On review of food journal, patient is meeting both protein and fluid goals. Patient is consuming 3 meals daily plus 1?2 high-protein snacks between to aid with meeting protein goal. He has maintained his weight since his 9 month postop appointment. He has increased his exercise at the gym from 1 time per week to 2 times per week--encouraged to engage in exercise for most days of the week to aid with weight maintenance. Adhering to vitamin recommendations, commended on 73% excess weight loss demonstrated since surgery. Goals: Goals - consider attending support group - contnue to meet protein/fluid goals daily - formal exercise daily for 30 minutes (cardiovascular)--inc rease exercise Aline Dumont RD, LD This note was generated using voice recognition technology and may contain grammatical errors. Cyril Combs MD 09/24/2018 3:23 PM Signed We are so happy for you in all of your success, keep up the hard work! Cyril Combs MD 09/25/2018 1:10 PM Signed [facility] Annual Visit Name: Oziel Burton ? Index Surgery Date of Surgery: 09/02/2017 Surgical Procedure: Laparoscopic sleeve gastrectomy Pre-surgical weight: 138.3 kg (305 lb) He is happy to report that he is off of his diabetes medications. They're coming down on his CPAP settings. He has taken long-standing proton pump inhibitor with vague epigastric discomfort when he stops this. Because of this she is going to continue his proton pump inhibitor indefinitely. We did discuss possible issues with long-term PPI usage and he understands this. Other Bariatric Surgeries None Visit: One year Today's Visit: Wt 94.8 kg (209 lb) BMI 29.99 kg/m2 BMI 29.99 kg/(m2) Last Visit: Wt: 94.7 kg (208 lb 12.8 oz) BMI: 29.96 kg/(m2) Total weight loss: 43.5 kg (96 lb) Moran weight: 79 kg (174 lb 4.1 oz) Excess weight: 59.3 kg (130 lb 11.9 oz) % of excess body weight lost: 43.5 kg (96 lb) (73.42% of excess weight loss) COMPLICATIONS SINCE LAST VISIT?: NONE DIET INTAKE: tolerates Phase V diet DAILY SUPPLEMENTS: Calcium: Calcium Citrate w/ vitamin D (1200 - 1500mg) Multivitamin AND Minerals: 1 per day Iron Supplement: included in multi-vitamin Vitamin A: included in multi-vitamin Vitamin B12: 500 mcg B Complex: No Biotin: No Vitamin C: included in multi-vitamin Vitamin D3: included in multi-vitamin Vitamin E: included in multi-vitamin Zinc: included in multi-vitamin Other: N/A EXERCISE: total minutes per week: Exercising at [employer] with his multiple times per week PAST MEDICAL HISTORY Diagnosis Date - Diabetes (HCC) - DVT, lower extremity (HCC) After knee surgery in May 2016 - GERD (gastroesophageal reflux disease) - Hyperlipidemia - Hypertension - JOSE RAUL on CPAP - Osteoarthritis PAST SURGICAL HISTORY Procedure Laterality Date - FOOT SURGERY HX Bilateral bone spurs - HERNIA REPAIR HX - KNEE SURGERY HX Left torn meniscus - KNEE SURGERY HX Right - NASAL SEPTUM REPOS W STABILIZATION - PAST SURGICAL HISTORY OF 02/2018 cyst removal on L big toe - PAST SURGICAL HISTORY OF Left 07/09/2018 csyt removal on L big toe - SHOULDER SURGERY HX Right - TONSILLECTOMY HX - UVULECTOMY EXCISION OF UVULA ALLERGIES Allergen Reactions - Benicar [Olmesartan* Other: See Comments flushed Current Outpatient Medications: amLODIPine (NORVASC) 5 mg tablet Take 5 mg by mouth once daily. cyanocobalamin, vitamin B-12, (VITAMIN B-12 ORAL) Take by mouth. calcium citrate/vitamin D3 (CALCIUM CITRATE + D ORAL) Take by mouth. fexofenadine (INEZ) 180 mg tablet Take 180 mg by mouth as needed. MULTIVITAMIN (CHILDREN'S MULTIVIT COMPLETE ORAL) Take by mouth. pantoprazole DR (PROTONIX) 40 mg tablet Take 40 mg by mouth once daily. celecoxib (CELEBREX) 200 mg capsule Take 200 mg by mouth once daily. traMADol (ULTRAM) 50 mg tablet Take 50 mg by mouth twice daily. INULIN (METAMUCIL CLEAR-NATURAL, INUL, ORAL) Take by mouth. No current facility-administered medications for this visit. ACTIVE PROBLEM LIST Adult Bmi 45.0-49.9 Kg/Sq M (Hcc) Gerd (Gastroesophageal Reflux Disease) Morbid Obesity ([facility]) Obesity, Class Iii, Bmi 40-49.9 (Morbid Obesity) ([facility]) REVIEW OF SYSTEMS: CONSTITUTIONAL: Patient denies fevers, chills, sweats CARDIOVASCULAR: Patient denies chest pains, palpitations RESPIRATORY: No dyspnea on exertion, no wheezing or cough. GI: No nausea, vomiting, diarrhea, constipation, abdominal pain, hematochezia or melena. : No urinary hesitancy or dribbling. No nocturia or urinary frequency. PHYSICAL EXAM: PHYSICAL EXAMINATION: BP 144/85 Pulse (!) 56 Ht 177.8 cm (5' 10) Wt 94.8 kg (209 lb) BMI 29.99 kg/m? GENERAL: No apparent distress. Pt is alert and oriented x3. Mucous membranes moist. No jaundice or scleral icterus. VITAL SIGNS: HR, BP, Temp; Normal HEART: Regular rate and rhythm ABDOMEN: Soft, nontender, and nondistended. No hepatosplenomegaly was noted. Incisions have healed nicely. No cellulitis or abscess. No evidence of port site hernia. Negative Bello's sign. EXTREMITIES: Without any cyanosis, clubbing, rash, lesions or edema. A/P: Normal post-OP course DISPOSITION: Return 1 year EDUCATION: Pt encouraged to continue with positive lifestyle changes and daily/vitamin intake REFERRALS: N/A Cyril Combs MD Advanced Laparoscopic and Bariatric Surgery *This note was generated using voice recognition technology and may contain grammatical errors Referring Provider: SELF [[id number]] Allergies As of Date: 09/24/2018 Noted Allergy Reaction BENICAR (OLMESARTAN MEDOXOMIL) 01/09/2017 14 - Other: See Comments Comments: flushed Date Reviewed: 09/24/2018 Reviewed by: Cyril Combs - Fully Assessed Reason for Visit: Established Patient [175] Primary Visit Diagnosis:S/P laparoscopic sleeve gastrectomy [Z98.84] Other Visit Diagnosis:Gastroesoph ageal reflux disease, esophagitis presence not specified [K21.9] Prescriptions as of 09/24/2018 Sig: AMLODIPINE 5 MG TABLET Take 5 mg by mouth once daily. VITAMIN B-12 ORAL Take by mouth. CALCIUM CITRATE + D ORAL Take by mouth. FEXOFENADINE 180 MG TABLET Take 180 mg by mouth as neede* CHILDREN'S MULTIVIT COMPLETE * Take by mouth. PANTOPRAZOLE 40 MG TABLET,DEL* Take 40 mg by mouth once iram* CELECOXIB 200 MG CAPSULE Take 200 mg by mouth once deshawn* TRAMADOL 50 MG TABLET Take 50 mg by mouth twice deshawn* METAMUCIL CLEAR-NATURAL (INUL* Take by mouth. Problem List As Of Date 09/24/2018 Noted Resolved Adult BMI 45.0-49.9 kg/sq m ([facility]) [Z68.42] INVALID FOR* GERD (gastroesophageal reflux disease) [K21.9] INVALID FOR* Morbid obesity ([facility]) [E66.01] INVALID FOR* More... Obesity, Class III, BMI 40-49.9 (morbid obesity*INVALID FOR* Other instructions from your clinician: We are so happy for you in all of your success, keep up the hard work! Disposition: Return in about 1 year (around 09/25/2019). Follow-up and Disposition History Recorded Questionnaire: AG GEN SURG BARIATRIC POST-OP VISITS WEIGHT (pounds) -> 209 Letter Text Encounter Status:Closed by CYRIL COMBS MD on 09/25/18 [facility] PROGRESSon 09-24-2018 PROGRESS HNO ID: [id number] Author: Cyril Combs Service: ? Author Type: Physician Type: Progress Notes Filed: 09/25/2018 1:10 PM Note Text: BARIATRIC SURGERY CLINIC Annual Visit Name: Oziel Burton ? Index Surgery Date of Surgery: 09/02/2017 Surgical Procedure: Laparoscopic sleeve gastrectomy Pre-surgical weight: 138.3 kg (305 lb) He is happy to report that he is off of his diabetes medications. They're coming down on his CPAP settings. He has taken long-standing proton pump inhibitor with vague epigastric discomfort when he stops this. Because of this she is going to continue his proton pump inhibitor indefinitely. We did discuss possible issues with long-term PPI usage and he understands this. Other Bariatric Surgeries None Visit: One year Today's Visit: Wt 94.8 kg (209 lb) BMI 29.99 kg/m2 BMI 29.99 kg/(m2) Last Visit: Wt: 94.7 kg (208 lb 12.8 oz) BMI: 29.96 kg/(m2) Total weight loss: 43.5 kg (96 lb) Moran weight: 79 kg (174 lb 4.1 oz) Excess weight: 59.3 kg (130 lb 11.9 oz) % of excess body weight lost: 43.5 kg (96 lb) (73.42% of excess weight loss) COMPLICATIONS SINCE LAST VISIT?: NONE DIET INTAKE: tolerates Phase V diet DAILY SUPPLEMENTS: Calcium: Calcium Citrate w/ vitamin D (1200 - 1500mg) Multivitamin AND Minerals: 1 per day Iron Supplement: included in multi-vitamin Vitamin A: included in multi-vitamin Vitamin B12: 500 mcg B Complex: No Biotin: No Vitamin C: included in multi-vitamin Vitamin D3: included in multi-vitamin Vitamin E: included in multi-vitamin Zinc: included in multi-vitamin Other: N/A EXERCISE: total minutes per week: Exercising at [employer] with his multiple times per week PAST MEDICAL HISTORY Diagnosis Date - Diabetes (HCC) - DVT, lower extremity (HCC) After knee surgery in May 2016 - GERD (gastroesophageal reflux disease) - Hyperlipidemia - Hypertension - JOSE RAUL on CPAP - Osteoarthritis PAST SURGICAL HISTORY Procedure Laterality Date - FOOT SURGERY HX Bilateral bone spurs - HERNIA REPAIR HX - KNEE SURGERY HX Left torn meniscus - KNEE SURGERY HX Right - NASAL SEPTUM REPOS W STABILIZATION - PAST SURGICAL HISTORY OF 02/2018 cyst removal on L big toe - PAST SURGICAL HISTORY OF Left 07/09/2018 csyt removal on L big toe - SHOULDER SURGERY HX Right - TONSILLECTOMY HX - UVULECTOMY EXCISION OF UVULA ALLERGIES Allergen Reactions - Benicar [Olmesartan* Other: See Comments flushed Current Outpatient Medications: amLODIPine (NORVASC) 5 mg tablet Take 5 mg by mouth once daily. cyanocobalamin, vitamin B-12, (VITAMIN B-12 ORAL) Take by mouth. calcium citrate/vitamin D3 (CALCIUM CITRATE + D ORAL) Take by mouth. fexofenadine (INEZ) 180 mg tablet Take 180 mg by mouth as needed. MULTIVITAMIN (CHILDREN'S MULTIVIT COMPLETE ORAL) Take by mouth. pantoprazole DR (PROTONIX) 40 mg tablet Take 40 mg by mouth once daily. celecoxib (CELEBREX) 200 mg capsule Take 200 mg by mouth once daily. traMADol (ULTRAM) 50 mg tablet Take 50 mg by mouth twice daily. INULIN (METAMUCIL CLEAR-NATURAL, INUL, ORAL) Take by mouth. No current facility-administered medications for this visit. ACTIVE PROBLEM LIST Adult Bmi 45.0-49.9 Kg/Sq M (Hcc) Gerd (Gastroesophageal Reflux Disease) Morbid Obesity ([facility]) Obesity, Class Iii, Bmi 40-49.9 (Morbid Obesity) ([facility]) REVIEW OF SYSTEMS: CONSTITUTIONAL: Patient denies fevers, chills, sweats CARDIOVASCULAR: Patient denies chest pains, palpitations RESPIRATORY: No dyspnea on exertion, no wheezing or cough. GI: No nausea, vomiting, diarrhea, constipation, abdominal pain, hematochezia or melena. : No urinary hesitancy or dribbling. No nocturia or urinary frequency. PHYSICAL EXAM: PHYSICAL EXAMINATION: BP 144/85 Pulse (!) 56 Ht 177.8 cm (5' 10) Wt 94.8 kg (209 lb) BMI 29.99 kg/m? GENERAL: No apparent distress. Pt is alert and oriented x3. Mucous membranes moist. No jaundice or scleral icterus. VITAL SIGNS: HR, BP, Temp; Normal HEART: Regular rate and rhythm ABDOMEN: Soft, nontender, and nondistended. No hepatosplenomegaly was noted. Incisions have healed nicely. No cellulitis or abscess. No evidence of port site hernia. Negative Bello's sign. EXTREMITIES: Without any cyanosis, clubbing, rash, lesions or edema. A/P: Normal post-OP course DISPOSITION: Return 1 year EDUCATION: Pt encouraged to continue with positive lifestyle changes and daily/vitamin intake REFERRALS: N/A Cyril Combs MD Advanced Laparoscopic and Bariatric Surgery *This note was generated using voice recognition technology and may contain grammatical errors Normal [facility] PROGRESS HNO ID: [id number] Author: Aline Vila) Julia Service: ? Author Type: Registered Dietitian Type: Progress Notes Filed: 09/25/2018 1:10 PM Note Text: 12 Month Post-op Oziel Burton 48 year old male BP 144/85 Pulse (!) 56 Ht 177.8 cm (5' 10) Wt 94.8 kg (209 lb) BMI 29.99 kg/m? SG 09/02/17 96# lost since surgery 73%EWL based on IBW w/ BMI 25 %BF: deferred Tolerating by mouth well: Yes Nausea: No Vomiting: No Constipation: No Diarrhea:No Weak/Shaky/Light-head ed: No Estimated Nutrient Intake Average of 3 days' food records: Yes 24 hour recall/Usual intake: Yes 81 protein (g) 1.1 g/KgIBW 77 liquid intake (oz) Food/beverage intolerance: none Exercise: 2x/week of PF--treadmill for 15 minutes + weight training 45-60 minutes Intake of obesity endorsing foods: 1-2 times per week Frequent grazing: no Satiety between meals: yes Attendance at support group: no, encouraged attendance Vitamins: MVI: 2, complete, in the morning B12: 1000mcg Calcium Citrate: 1200mg--2, 600mg--in the evening (taking 1-2 hours apart) Iron: N/A Written information provided and reviewed: Ten Commandments of Bariatric Nutrition journal support group schedule Reinforced Behaviors :attend support group limit caffeine/alcohol Patient brought phone daren food journal to appointment today. On review of food journal, patient is meeting both protein and fluid goals. Patient is consuming 3 meals daily plus 1?2 high-protein snacks between to aid with meeting protein goal. He has maintained his weight since his 9 month postop appointment. He has increased his exercise at the gym from 1 time per week to 2 times per week--encouraged to engage in exercise for most days of the week to aid with weight maintenance. Adhering to vitamin recommendations, commended on 73% excess weight loss demonstrated since surgery. Goals: Goals - consider attending support group - contnue to meet protein/fluid goals daily - formal exercise daily for 30 minutes (cardiovascular)--inc rease exercise Aline Dumont RD, LD This note was generated using voice recognition technology and may contain grammatical errors. Normal [facility] CNOVon 06-23-2018 CNOV Office Visit (AGGENS4) OZIEL BURTON ([id number]) 1970 M Date Time Provider Department 06/23/18 3:30 PM MAKI RUSH (APPLIANCE MECHANIC) AGGENS4 During your visit today, we recorded the following information about you: Pulse Blood pressure Weight Height 50/minute 135/73 94.7 kg 1.778 m Maki Rush APRN.CNP 06/26/2018 1:47 PM Signed Name: Oziel Burton Index Surgery Date of Surgery: 09/12/2017 Surgeon: Garret Surgical Procedure: Sleeve gastrectomy Pre-surgical weight: 138.3 kg (305 lb) Override Index Surgery Information? No Other Bariatric Surgeries None Visit: 9 months Today's Visit: Wt 94.7 kg (208 lb 12.8 oz) BMI 29.96 kg/m2 BMI 29.96 kg/(m2) Last Visit: Wt: 97.8 kg (215 lb 9.6 oz) BMI: 31.84 kg/(m2) Total weight loss: 43.6 kg (96 lb 3.2 oz) Moran weight: 79 kg (174 lb 4.1 oz) Excess weight: 59.3 kg (130 lb 11.9 oz) % of excess body weight lost: 43.6 kg (96 lb 3.2 oz) (73.58% of excess weight loss) COMPLICATIONS SINCE LAST VISIT?: NONE doing very well since surgery, he is on no medications for his diabetes, he still requires CPAP for sleep apnea, he's noted significant improvement in his joint pain and is no longer requiring wearing a brace long-term He does continue to require PPI therapy, no refractory symptoms. DIET INTAKE: tolerates Phase V diet DAILY SUPPLEMENTS: Calcium: Calcium Citrate w/ vitamin D (1200 - 1500mg) Multivitamin AND Minerals: 2 per day Iron Supplement: included in multi-vitamin Vitamin B12: 1000 mcg Biotin: No Vitamin C: included in multi-vitamin Vitamin D3: 2000 IU Other: N/A EXERCISE: [employer] Are you attending any Support Groups? No attendance Current Outpatient Prescriptions: cyanocobalamin, vitamin B-12, (VITAMIN B-12 ORAL) Take by mouth. calcium citrate/vitamin D3 (CALCIUM CITRATE + D ORAL) Take by mouth. MULTIVITAMIN (CHILDREN'S MULTIVIT COMPLETE ORAL) Take by mouth. pantoprazole DR (PROTONIX) 40 mg tablet Take 40 mg by mouth once daily. celecoxib (CELEBREX) 200 mg capsule Take 200 mg by mouth once daily. traMADol (ULTRAM) 50 mg tablet Take 50 mg by mouth twice daily. INULIN (METAMUCIL CLEAR-NATURAL, INUL, ORAL) Take by mouth. fexofenadine (INEZ) 180 mg tablet Take 180 mg by mouth as needed. No current facility-administered medications for this visit. REVIEW OF SYSTEMS: denies nausea, vomiting, dumping syndrome, abdominal pain, constipation, diarrhea, melena, hematochezia, paresthesias, gait abnormality, fatigue, weakness, lower extremity edema and normal bowel movements PHYSICAL EXAM: Deferred, no abdominal issues ASSESSMENT AND PLAN: Normal post-OP course DISPOSITION: Return 3 month to Post-op follow up/ individual office visit EDUCATION: Pt encouraged to continue with positive lifestyle changes and daily/vitamin intake REFERRALS: N/A LABS: Today: CBC, BMP, Vitamin B12, Iron/ TIBC, Folate and B1 He is also experiencing insurance issues, including his , they would like to review the diagnosis codes and check with her insurance. Maki Rush APRN.ISACC Dumont RD, LD 06/26/2018 1:47 PM Signed 9 Month Post-op Oziel Burton 48 year old male BP 135/73 (BP Site: Left Arm, BP Position: Sitting, BP Cuff Size: Regular Adult) Pulse (!) 50 Ht 177.8 cm (5' 10) Wt 94.7 kg (208 lb 12.8 oz) BMI 29.96 kg/m? 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 (10-15 minutes cardiovascular + machines/arms) Intake of obesity endorsing foods: 2-3x/week, consuming a few bites Frequent grazing: none Satiety between meals: yes Attendance at support group: no, encouraged attendance Alcohol/caffeine/carb onation--has had 2 alcoholic mixed drinks Vitamins: MVI: 2, complete, in the morning B12: 1000mcg Calcium Citrate: 1200mg--2, 600mg--in the evening (taking 1-2 hours apart) Iron: N/A Written information provided and reviewed: journal support group schedule Reinforced Behaviors: attend support group limit caffeine/alcohol Pt brought food journal to appointment today. Upon review of food journal, patient is meeting both protein and fluid goals. He does demonstrate increased energy with weight loss and is increasing his activity throughout the day (working in his [employer], staying active). Discussed increasing formal, planned cardiovascular exercise to aid with wt maintenance. Goals: Goals - consider attending support group - continue to document in a food journail daily and meet protein/fluid goals - formal exercise daily for 30 minutes (cardiovascular)--inc rease exercise Aline Dumont, LAILA, LD This note was generated using voice recognition technology and may contain grammatical errors.dahiana Rush APRN.[facility] 06/23/2018 3:54 PM Signed Congratulations on all your healthy achievements Referring Provider: SELF [200] Allergies As of Date: 06/23/2018 Noted Allergy Reaction BENICAR (OLMESARTAN MEDOXOMIL) 01/09/2017 14 - Other: See Comments Comments: flushed Date Reviewed: 06/23/2018 Reviewed by: Navin (Eyad) Tidwell - Fully Assessed Reason for Visit: Established Patient [175] Cmt: 9 months follow up Primary Visit Diagnosis:S/P laparoscopic sleeve gastrectomy [Z98.84] Other Visit Diagnoses:Vitamin deficiency [E56.9] Obesity, Class III, BMI 40-49.9 (morbid obesity) ([facility]) [E66.01] Type 2 diabetes mellitus without complication, without long-term current use of insulin ([facility]) [E11.9] Gastroesophageal reflux disease, esophagitis presence not specified [K21.9] Obstructive sleep apnea on CPAP [G47.33, Z99.89] Order(s):BASIC METABOLIC PNL [SQBMP] Order #: [id number] FUTURE CBC [SQCBC] Order #: [id number] FUTURE FERRITIN BLD [SQFERR] Order #: [id number] FUTURE FOLATE SERUM [SQSERFOL] Order #: [id number] FUTURE VITAMIN B1/THIAMINE, WHOLE BLD [SEH7CUR] Order #: [id number] FUTURE VITAMIN B12 BLOOD [SQB12] Order #: [id number] FUTURE IRON + TIBC [SQIRON] Order #: [id number] FUTURE Prescriptions as of 06/23/2018 Sig: VITAMIN B-12 ORAL Take by mouth. CALCIUM CITRATE + D ORAL Take by mouth. CHILDREN'S MULTIVIT COMPLETE * Take by mouth. PANTOPRAZOLE 40 MG TABLET,DEL* Take 40 mg by mouth once iram* CELECOXIB 200 MG CAPSULE Take 200 mg by mouth once deshawn* TRAMADOL 50 MG TABLET Take 50 mg by mouth twice deshawn* METAMUCIL CLEAR-NATURAL (INUL* Take by mouth. FEXOFENADINE 180 MG TABLET Take 180 mg by mouth as neede* Problem List As Of Date 06/23/2018 Noted Resolved Adult BMI 45.0-49.9 kg/sq m ([facility]) [Z68.42] INVALID FOR* GERD (gastroesophageal reflux disease) [K21.9] INVALID FOR* Morbid obesity ([facility]) [E66.01] INVALID FOR* More... Obesity, Class III, BMI 40-49.9 (morbid obesity*INVALID FOR* Other instructions from your clinician: Congratulations on all your healthy achievements Disposition: Return in about 3 months (around 09/20/2018) for Dr. Combs, Dietitian. Follow-up and Disposition History Recorded Questionnaire: AG GEN SURG BARIATRIC POST-OP VISITS WEIGHT (pounds) -> 208.8 Encounter Status:Closed by MAKI HENSLEY on 06/26/18 [facility] PROGRESSon 06-23-2018 PROGRESS HNO ID: [id number] Author: Aline Dumont Service: (none) Author Type: Registered Dietitian Type: Progress Notes Filed: 06/26/2018 1:47 PM Note Text: 9 Month Post-op Oziel Hank Burton 48 year old male BP 135/73 (BP Site: Left Arm, BP Position: Sitting, BP Cuff Size: Regular Adult) Pulse (!) 50 Ht 177.8 cm (5' 10) Wt 94.7 kg (208 lb 12.8 oz) BMI 29.96 kg/m? 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 (10-15 minutes cardiovascular + machines/arms) Intake of obesity endorsing foods: 2-3x/week, consuming a few bites Frequent grazing: none Satiety between meals: yes Attendance at support group: no, encouraged attendance Alcohol/caffeine/carb onation--has had 2 alcoholic mixed drinks Vitamins: MVI: 2, complete, in the morning B12: 1000mcg Calcium Citrate: 1200mg--2, 600mg--in the evening (taking 1-2 hours apart) Iron: N/A Written information provided and reviewed: journal support group schedule Reinforced Behaviors: attend support group limit caffeine/alcohol Pt brought food journal to appointment today. Upon review of food journal, patient is meeting both protein and fluid goals. 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 Discussed increasing formal, planned cardiovascular exercise to aid with wt maintenance. Goals: Goals - consider attending support group - continue to document in a food journail daily and meet protein/fluid goals - formal exercise daily for 30 minutes (cardiovascular)--inc rease exercise Aline Dumont RD, LD This note was generated using voice recognition technology and may contain grammatical errors.s. [facility] PROGRESS HNO ID: [id number] Author: Maki Rush Service: (none) Author Type: Nurse Practitioner Type: Progress Notes Filed: 06/26/2018 1:47 PM Note Text: Name: Oziel Burton Index Surgery Date of Surgery: 09/12/2017 Surgeon: Garret Surgical Procedure: Sleeve gastrectomy Pre-surgical weight: 138.3 kg (305 lb) Override Index Surgery Information? No Other Bariatric Surgeries None Visit: 9 months Today's Visit: Wt 94.7 kg (208 lb 12.8 oz) BMI 29.96 kg/m2 BMI 29.96 kg/(m2) Last Visit: Wt: 97.8 kg (215 lb 9.6 oz) BMI: 31.84 kg/(m2) Total weight loss: 43.6 kg (96 lb 3.2 oz) Moran weight: 79 kg (174 lb 4.1 oz) Excess weight: 59.3 kg (130 lb 11.9 oz) % of excess body weight lost: 43.6 kg (96 lb 3.2 oz) (73.58% of excess weight loss) COMPLICATIONS SINCE LAST VISIT?: NONE doing very well since surgery, he is on no medications for his diabetes, he still requires CPAP for sleep apnea, he's noted significant improvement in his joint pain and is no longer requiring wearing a brace long-term He does continue to require PPI therapy, no refractory symptoms. DIET INTAKE: tolerates Phase V diet DAILY SUPPLEMENTS: Calcium: Calcium Citrate w/ vitamin D (1200 - 1500mg) Multivitamin AND Minerals: 2 per day Iron Supplement: included in multi-vitamin Vitamin B12: 1000 mcg Biotin: No Vitamin C: included in multi-vitamin Vitamin D3: 2000 IU Other: N/A EXERCISE: [employer] Are you attending any Support Groups? No attendance Current Outpatient Prescriptions: cyanocobalamin, vitamin B-12, (VITAMIN B-12 ORAL) Take by mouth. calcium citrate/vitamin D3 (CALCIUM CITRATE + D ORAL) Take by mouth. MULTIVITAMIN (CHILDREN'S MULTIVIT COMPLETE ORAL) Take by mouth. pantoprazole DR (PROTONIX) 40 mg tablet Take 40 mg by mouth once daily. celecoxib (CELEBREX) 200 mg capsule Take 200 mg by mouth once daily. traMADol (ULTRAM) 50 mg tablet Take 50 mg by mouth twice daily. INULIN (METAMUCIL CLEAR-NATURAL, INUL, ORAL) Take by mouth. fexofenadine (INEZ) 180 mg tablet Take 180 mg by mouth as needed. No current facility-administered medications for this visit. REVIEW OF SYSTEMS: denies nausea, vomiting, dumping syndrome, abdominal pain, constipation, diarrhea, melena, hematochezia, paresthesias, gait abnormality, fatigue, weakness, lower extremity edema and normal bowel movements PHYSICAL EXAM: Deferred, no abdominal issues ASSESSMENT AND PLAN: Normal post-OP course DISPOSITION: Return 3 month to Post-op follow up/ individual office visit EDUCATION: Pt encouraged to continue with positive lifestyle changes and daily/vitamin intake REFERRALS: N/A LABS: Today: CBC, BMP, Vitamin B12, Iron/ TIBC, Folate and B1 He is also experiencing insurance issues, including his , they would like to review the diagnosis codes and check with her insurance. Maki Rush, TONIA.APPLIANCE MECHANIC Normal [facility] Basic Panelon 09-04-2017 Creatinine mass conc 0.96 mg/dL Normal 0.67-1.17 [facility] Comment on above: Performed By: #### H CTI ####[facility] [place], [place] [address] Anion gap 3 molar conc 10 mmol/L Normal 8-16 [facility] Comment on above: Performed By: #### H CTI ####[facility]1 [place], [place] [address] CO2 molar conc 26 mmol/L Normal 21-32 [facility] Comment on above: Performed By: #### H CTI ####[facility] [place], [place] [address] Glucose mass conc 100 mg/dL High 70-99 [facility] Comment on above: Performed By: #### H CTI ####[address] [address] Urea nitrogen mass conc 12 mg/dL Normal 7-18 [facility] Comment on above: Performed By: #### H CTI ####[address] [address] Calcium mass conc 8.8 mg/dL Normal 8.5-10.1 [facility] Comment on above: Performed By: #### H CTI ####[address] [address] Chloride molar conc 110 mmol/L High 98-107 [facility] Comment on above: Performed By: #### H CTI ####[address] [address] Potassium molar conc 4.0 mmol/L Normal 3.5-5.1 [facility] Comment on above: Performed By: #### H CTI ####[address] [address] Sodium molar conc 142 mmol/L Normal 136-145 [facility] Comment on above: Performed By: #### H CTI ####[address] [address] Glucose Meteron 09-04-2017 Glucose mass conc 89 mg/dL Normal 70-99 [facility] Comment on above: Result Comment: GEO JORDAN Performed By: #### H CTI ####[place] [address] Glucose mass conc 91 mg/dL Normal 70-99 [facility] Comment on above: Result Comment: GEO JORDAN Performed By: #### H CTI ####[place] [address] Hemogram/Diffon 09-04-2017 Abs Immature Grans 0.04 thou/cmm Normal 0.00-0.05 [facility] Comment on above: Performed By: #### H GBI ####[place] [address] Abs. Baso 0.02 thou/cmm Normal 0.01-0.08 [facility] Comment on above: Performed By: #### H GBI ####[place] [address] Abs. [place] 0.63 thou/cmm Normal 0.30-0.82 [facility] Comment on above: Performed By: #### H GBI ####[place] [address] Abs. Neut 5.04 thou/cmm Normal 1.78-5.38 [facility] Comment on above: Performed By: #### H GBI ####[place] [address] Basophils/100 WBC Auto (Bld) 0.3 % Normal [facility] Comment on above: Performed By: #### H GBI ####[place] [address] Eosinophils Auto #/vol (Bld) 0.06 thou/cmm Normal 0.04-0.54 [facility] Comment on above: Performed By: #### H GBI ####[place] [address] Eosinophils/100 WBC Auto (Bld) 0.8 % Normal [facility] Comment on above: Performed By: #### H GBI ####[place] [address] Erythrocyte distribution width Auto Ratio (RBC) 15.0 % High 11.6-14.4 [facility] Comment on above: Performed By: #### H GBI ####[facility]1 [place], [place] [address] Hematocrit Auto Volume Fraction (Bld) 44.6 % Normal 40.1-51.0 [facility] Comment on above: Performed By: #### H GBI ####[address] [address] Hemoglobin mass conc (Bld) 14.5 g/dL Normal 13.7-17.5 [facility] Comment on above: Performed By: #### H GBI ####[place] [address] Immature Grans 0.50 % Normal [facility] Comment on above: Performed By: #### H GBI ####[place] [address] Lymphocytes Auto #/vol (Bld) 1.83 thou/cmm Normal 0.84-2.85 [facility] Comment on above: Performed By: #### H GBI ####[place] [address] Lymphocytes/100 WBC Auto (Bld) 24.0 % Normal [facility] Comment on above: Performed By: #### H GBI ####[place] [address] MCH Auto Entitic mass (RBC) 29.3 pg Normal 25.7-32.2 [facility] Comment on above: Performed By: #### H GBI ####[place] [address] MCHC Auto mass conc (RBC) 32.5 % Normal 32.3-36.5 [facility] Comment on above: Performed By: #### H GBI ####[place] [address] MCV Auto Entitic volume (RBC) 90.1 fL Normal 83.2-95.6 [facility] Comment on above: Performed By: #### H GBI ####[address] [address] Monocytes/100 WBC Auto (Bld) 8.3 % Normal [facility] Comment on above: Performed By: #### H GBI ####[address] [address] Platelet mean volume Auto Entitic volume (Bld) 11.3 fL Normal 8.7-12.0 [facility] Comment on above: Performed By: #### H GBI ####[address] [address] Platelets Auto #/vol (Bld) 195 thou/cmm Normal 141-365 [facility] Comment on above: Performed By: #### H GBI ####[place] [address] RBC Auto #/vol (Bld) 4.95 mil/cmm Normal 4.63-6.08 [facility] Comment on above: Performed By: #### H GBI ####[place] [address] RDW SD 48.9 fl High 36.1-45.8 [facility] Comment on above: Performed By: #### H GBI ####[place] [address] Seg Neutrophil 66.1 % Normal [facility] Comment on above: Performed By: #### H GBI ####[place] [address] WBC Auto #/vol (Bld) 7.63 thou/cmm Normal 4.23-9.07 [facility] Comment on above: Performed By: #### H GBI ####[place] [id number] MDRD GFRon 09-04-2017 GFR/1.73 sq M predicted among non-blacks MDRD vol rate/area (S/P/Bld) mL/min/{1.73_m2} Normal >60mL/min/1.7 3m2 [facility] Comment on above: Result Comment: If t he patient is , multiply the result by 1.210. Performed By: #### H CTI ####[facility]1 [place], [place] [address] Otheron 09-04-2017 CONVERTED CLINICAL HISTORY OPERATIVE PROCEDURE: Laps gstrc rstrictiv px longitudinal gastrectomy (536[address]) ( CPT) CLINICAL INFORMATION: Morbid obesity (HCC) [E66.01] [facility] CONVERTED ELECTRONIC SIGNATURE MARIBEL CHAVEZ M.D., PATHOLOGIST (Electronic signature on file) Final Signed Out: 09/04/2017 16:28 [facility] CONVERTED FINAL DIAGNOSIS FINAL DIAGNOSIS: STOMACH, SLEEVE GASTRECTOMY - BENIGN GASTRIC TISSUE. [facility] CONVERTED GROSS DESCRIPTION GROSS DESCRIPTION: Sleeve gastrectomy Received in formalin labeled sleeve gastrectomy is a stapled segment of stomach measuring 28 cm in length x 2 to 3.5 cm in diameter. The serosa is larios-leonard, smooth with minimal attached adipose tissue. Opening reveals a pink-red to yellow glistening mucosa with typical rugal folding. No distinct masses, ulcerations or polyps can be appreciated. Sectioning reveals a wall thickness ranging from 0.3 to 0.6 cm. Pipe Organ Installer sections are submitted in three cassettes. BMP:salty [facility] CONVERTED ORDERING PROVIDER Ordering Provider: SUZE COMBS [facility] Basic Panelon 09-03-2017 Urea nitrogen mass conc 19 mg/dL High 7-18 [facility] Comment on above: Performed By: #### H GBI ####[place] [address] Creatinine mass conc 0.98 mg/dL Normal 0.67-1.17 [facility] Comment on above: Performed By: #### H GBI ####[place] [address] Anion gap 3 molar conc 13 mmol/L Normal 8-16 [facility] Comment on above: Performed By: #### H GBI ####[facility] [place] [address] CO2 molar conc 26 mmol/L Normal 21-32 [facility] Comment on above: Performed By: #### H GBI ####[address] [address] Glucose mass conc 93 mg/dL Normal 70-99 [facility] Comment on above: Performed By: #### H GBI ####[facility]1 [place], [place] [address] Calcium mass conc 8.7 mg/dL Normal 8.5-10.1 [facility] Comment on above: Performed By: #### H GBI ####[address] [address] Chloride molar conc 105 mmol/L Normal 98-107 [facility] Comment on above: Performed By: #### H GBI ####[address] [address] Potassium molar conc 3.6 mmol/L Normal 3.5-5.1 [facility] Comment on above: Performed By: #### H GBI ####[address] [address] Sodium molar conc 140 mmol/L Normal 136-145 [facility] Comment on above: Performed By: #### H GBI ####[address] [address] Glucose Meteron 09-03-2017 Glucose mass conc 90 mg/dL Normal 70-99 [facility] Comment on above: Result Comment: RN N OTIFIED Performed By: #### H GBI ####[address] [address] Glucose mass conc 92 mg/dL Normal 70-99 [facility] Comment on above: Result Comment: RN N OTIFIED Performed By: #### H GBI ####[address] [address] Glucose mass conc 87 mg/dL Normal 70-99 [facility] Comment on above: Result Comment: RN N OTIFIED Performed By: #### H GBI ####[address] [address] Glucose mass conc 132 mg/dL High 70-99 [facility] Comment on above: Result Comment: RN N OTIFIED Performed By: #### H GBI ####[address] [address] Hemogram/Diffon 09-03-2017 Abs Immature Grans 0.05 thou/cmm Normal 0.00-0.05 [facility] Comment on above: Performed By: #### H GBI ####[facility] [place] [address] Abs. Baso 0.02 thou/cmm Normal 0.01-0.08 [facility] Comment on above: Performed By: #### H GBI ####[place] [address] Abs. [place] 1.14 thou/cmm High 0.30-0.82 [facility] Comment on above: Performed By: #### H GBI ####[place] [address] Abs. Neut 9.02 thou/cmm High 1.78-5.38 [facility] Comment on above: Performed By: #### H GBI ####[place] [address] Basophils/100 WBC Auto (Bld) 0.2 % Normal [facility] Comment on above: Performed By: #### H GBI ####[place] [address] Eosinophils Auto #/vol (Bld) 0.01 thou/cmm Low 0.04-0.54 [facility] Comment on above: Performed By: #### H GBI ####[place] [address] Eosinophils/100 WBC Auto (Bld) 0.1 % Normal [facility] Comment on above: Performed By: #### H GBI ####[place] [address] Erythrocyte distribution width Auto Ratio (RBC) 14.9 % High 11.6-14.4 [facility] Comment on above: Performed By: #### H GBI ####[place] [address] Hematocrit Auto Volume Fraction (Bld) 46.0 % Normal 40.1-51.0 [facility] Comment on above: Performed By: #### H GBI ####[facility] [place] [address] Hemoglobin mass conc (Bld) 15.4 g/dL Normal 13.7-17.5 [facility] Comment on above: Performed By: #### H GBI ####[place] [address] Immature Grans 0.40 % Normal [facility] Comment on above: Performed By: #### H GBI ####[place] [address] Lymphocytes Auto #/vol (Bld) 1.24 thou/cmm Normal 0.84-2.85 [facility] Comment on above: Performed By: #### H GBI ####[place] [address] Lymphocytes/100 WBC Auto (Bld) 10.8 % Normal [facility] Comment on above: Performed By: #### H GBI ####[place] [address] MCH Auto Entitic mass (RBC) 29.2 pg Normal 25.7-32.2 [facility] Comment on above: Performed By: #### H GBI ####[place] [address] MCHC Auto mass conc (RBC) 33.5 % Normal 32.3-36.5 [facility] Comment on above: Performed By: #### H GBI ####[place] [address] MCV Auto Entitic volume (RBC) 87.3 fL Normal 83.2-95.6 [facility] Comment on above: Performed By: #### H GBI ####[place] [address] Monocytes/100 WBC Auto (Bld) 9.9 % Normal [facility] Comment on above: Performed By: #### H GBI ####[place] [address] Platelet mean volume Auto Entitic volume (Bld) 11.2 fL Normal 8.7-12.0 [facility] Comment on above: Performed By: #### H GBI ####[facility]1 [place], [place] [address] Platelets Auto #/vol (Bld) 210 thou/cmm Normal 141-365 [facility] Comment on above: Performed By: #### H GBI ####[facility] [place] [address] RBC Auto #/vol (Bld) 5.27 mil/cmm Normal 4.63-6.08 [facility] Comment on above: Performed By: #### H GBI ####[place] [address] RDW SD 47.5 fl High 36.1-45.8 [facility] Comment on above: Performed By: #### H GBI ####[place] [address] Seg Neutrophil 78.6 % Normal [facility] Comment on above: Performed By: #### H GBI ####[place] [address] WBC Auto #/vol (Bld) 11.48 thou/cmm High 4.23-9.07 [facility] Comment on above: Performed By: #### H GBI ####[place] [address] MDRD GFRon 09-03-2017 GFR/1.73 sq M predicted among non-blacks MDRD vol rate/area (S/P/Bld) mL/min/{1.73_m2} Normal >60mL/min/1.7 3m2 [facility] Comment on above: Result Comment: If t he patient is , multiply the result by 1.210. Performed By: #### H GBI ####[place] [address] ABO/Rh Confirmationon 2017 ABO group Nom (Bld) A Normal [facility] Comment on above: Performed By: #### A NAKUL ####[place] [address] RH Type Positive Normal [facility] Comment on above: Performed By: #### A NAKUL ####[facility] [place] [address] Basic Panelon 09-02-2017 Creatinine mass conc 0.84 mg/dL Normal 0.67-1.17 [facility] Comment on above: Performed By: #### P 8 ####[facility] [place] [address] Anion gap 3 molar conc 14 mmol/L Normal 8-16 [facility] Comment on above: Performed By: #### P 8 ####[facility] [place] [address] CO2 molar conc 19 mmol/L Low 21-32 [facility] Comment on above: Performed By: #### P 8 ####[facility] [place] [address] Glucose mass conc 114 mg/dL High 70-99 [facility] Comment on above: Performed By: #### P 8 ####[facility] [place] [address] Urea nitrogen mass conc 21 mg/dL High 7-18 [facility] Comment on above: Performed By: #### P 8 ####[facility] [place], [place] [address] Calcium mass conc 8.8 mg/dL Normal 8.5-10.1 [facility] Comment on above: Performed By: #### P 8 ####[facility] [place] [address] Chloride molar conc 104 mmol/L Normal 98-107 [facility] Comment on above: Performed By: #### P 8 ####[facility] [place], [place] [address] Potassium molar conc 5.4 mmol/L High 3.5-5.1 [facility] Comment on above: Performed By: #### P 8 ####[facility] [place] [address] Sodium molar conc 132 mmol/L Low 136-145 [facility] Comment on above: Performed By: #### P 8 ####[address] [address] Glucose Meteron 09-02-2017 Glucose mass conc 114 mg/dL High 70-99 [facility] Comment on above: Result Comment: RN N OTIFIED Performed By: #### H GBI ####[address] [address] Glucose mass conc 132 mg/dL High 70-99 [facility] Comment on above: Result Comment: GEO N OTIFIED Performed By: #### G LMET ####[address] [address] Glucose mass conc 141 mg/dL High 70-99 [facility] Comment on above: Performed By: #### G LMET ####[address] [address] Glucose mass conc 88 mg/dL Normal 70-99 [facility] Comment on above: Performed By: #### G LMET ####[address] [address] MDRD GFRon 09-02-2017 GFR/1.73 sq M predicted among non-blacks MDRD vol rate/area (S/P/Bld) mL/min/{1.73_m2} Normal >60mL/min/1.7 3m2 [facility] Comment on above: Result Comment: If t he patient is , multiply the result by 1.210. Performed By: #### H GBI ####[place] [address] Surgical Tissue Examon 09-02 Surgical Tissue Exam Test performed at [place] [address]NAME: OZIEL BURTON [id number] REQUESTING: SUZE COMBS MDFINAL DIAGNOSIS:STOMACH, SLEEVE GASTRECTOMY - BENIGN GASTRIC TISSUE.OPERATIVE PROCEDURE: Laps gstrc rstrictiv px longitudinal gastrectomy ([address]) ( CPT)CLINICAL INFORMATION: Morbid obesity (HCC) [E66.01]GROSS DESCRIPTION:Sleeve gastrectomyReceived in formalin labeled sleeve gastrectomy is a stapled segment ofstomach measuring 28 cm in length x 2 to 3.5 cm in diameter. Theserosa is larios-leonard, smooth with minimal attached adipose tissue.Opening reveals a pink-red to yellow glistening mucosa with typicalrugal folding. No distinct masses, ulcerations or polyps can beappreciated. Sectioning reveals a wall thickness ranging from 0.3 to0.6 cm. Pipe Organ Installer sections are submitted in three cassettes.BMP:lionel CHAVEZ M.D., PATHOLOGIST(Joe gray signature on file)Signed out: 09/04/2017 16:28PRINTED: 09/04/2017 Page 1 of 1 Normal [facility] Comment on above: Performed By: #### H CTI ####[place] [address] Albumin Bloodon 08-26-2017 Albumin mass conc 4.0 g/dL Normal 3.4-5.0 [facility] Comment on above: Performed By: #### A LB ####[place] [address] Hcton 08-26-2017 Hematocrit Auto Volume Fraction (Bld) 46.7 % Normal 40.1-51.0 [facility] Comment on above: Performed By: #### H CTI ####[place] [address] Hgbon 08-26-2017 Hemoglobin mass conc (Bld) 15.5 g/dL Normal 13.7-17.5 [facility] Comment on above: Performed By: #### H GBI ####[place] [address] Type and Screenon 08-26-2017 ABO group Nom (Bld) A Normal [facility] Comment on above: Performed By: #### T &S ####[place] [address] Comment PAT specimen Normal [facility] Comment on above: Performed By: #### T &S ####[place] [address] RH Type Positive Normal [facility] Comment on above: Performed By: #### T &S ####[address] [address] Otheron 04-16-2017 CONVERTED CLINICAL HISTORY OPERATIVE PROCEDURE: EGD CLINICAL INFORMATION: Morbid obesity, Gastritis, Gastric polyp [facility] CONVERTED ELECTRONIC SIGNATURE GHULAM SHERMAN M.D.,PATHOLOGIST (Electronic signature on file) Final Signed Out: 04/16/2017 16:47 [facility] CONVERTED FINAL DIAGNOSIS FINAL DIAGNOSIS: A) STOMACH, POLYP - FUNDIC GLAND POLYP. B) STOMACH, ANTRUM, BIOPSY - MILD REACTIVE GASTROPATHY AND MILD CHRONIC GASTRITIS. NEGATIVE FOR HELICOBACTER PYLORI (SEE NOTE). NOTE: Immunostain for H. pylori is negative. [facility] CONVERTED GROSS DESCRIPTION GROSS DESCRIPTION: A) Biopsy gastric polyp Received in formalin labeled biopsy gastric polyps is an irregular-shaped segment of larios-brown soft tissue measuring 0.3 x 0.1 x 0.1 cm. Totally submitted in cassette A1. Level x 3. B) Antral biopsy, R/O H. pylori Received in formalin labeled antral biopsy are two irregular shaped segments of larios-brown soft tissue aggregating to 0.5 x 0.2 x 0 .1 cm. Totally submitted in cassette B1. Levels x 3. H. pylori. [facility] CONVERTED ORDERING PROVIDER Ordering Provider: SUZE COMBS [facility] Surgical Tissue Examon 04-14 Surgical Tissue Exam Test performed at [address] [address]HAFE: OZIEL BURTON [id number] REQUESTING: SUZE COMBS MDFINAL DIAGNOSIS:A) STOMACH, POLYP - FUNDIC GLAND POLYP.B) STOMACH, ANTRUM, BIOPSY - MILD REACTIVE GASTROPATHY AND MILD CHRONICGASTRITIS. NEGATIVE FOR HELICOBACTER PYLORI (SEE NOTE).NOTE: Immunostain for H. pylori is negative.OPERATIVE PROCEDURE: EGDCLINICAL INFORMATION: Morbid obesity, Gastritis, Gastric polypGROSS DESCRIPTION:A) Biopsy gastric polypReceived in formalin labeled biopsy gastric polyps is anirregular-shaped segment of larios-brown soft tissue measuring 0.3 x 0.1 x0.1 cm. Totally submitted in cassette A1. Level x 3.B) Antral biopsy, R/O H. pyloriReceived in formalin labeled antral biopsy are two irregular shapedsegments of larios-brown soft tissue aggregating to 0.5 x 0.2 x 0 .1 cm.Totally submitted in cassette B1. Levels x 3. H. pylori. GHULAM SHERMAN M.D.,PATHOLOGIST(Mary forde signature on file)Signed out: 04/16/2017 16:47PRINTED: 04/16/2017 Page 1 of 1 Normal [facility] Comment on above: Performed By: #### S URG ####[place] [address] Office Visit: UC: CHANCE Curran um 01-09-2017 Documentation of current medications (procedure) Done Invalid Interpretation Code [facility] Work Phone: Fall risk assessment No Invalid Interpretation Code [facility] Now [facility] Work Phone: Protein mass conc Done [facility] Work Phone: Tobacco smoking status NHIS Never Invalid Interpretation Code [facility] Work Phone: Tobacco smoking status NHIS Never smoker [facility] Work Phone: Tobacco use CPHS Never smoker Invalid Interpretation Code [facility] Work Phone: Office Visit: AD[facility] 11-18-2016 Documentation of current medications (procedure) Done Invalid Interpretation Code [facility] Work Phone: Fall risk assessment No Invalid Interpretation Code [facility] Work Phone: Tobacco smoking status NHIS Never Invalid Interpretation Code [facility] Work Phone: Tobacco use CPHS Never smoker Invalid Interpretation Code [facility] Work Phone: Office Visiton 08-16-2016 Documentation of current medications (procedure) Done Invalid Interpretation Code [facility] Work Phone: Tobacco smoking status NHIS Never [facility] Work Phone: Tobacco smoking status NHIS Never smoker [facility] Work Phone: Tobacco use CPHS Never smoker Invalid Interpretation Code [facility] Work Phone: [phone] Chart Maintenanceon 06-29-19 17 HbA1c (Bld) [Mass fraction] 5.8 % Invalid Interpretation Code [place] [facility] [place] [facility] Work Phone: Lab Report: Bedside Glucoseo n 05-29-2016 Glucose 131 mg/dL High 70-110 [facility] Work Phone: [phone] Glucose [Mass/Vol] 131 mg/dL High 70-110 [facility] [place] [facility] Work Phone: Microbiology: Culture, Body Fluidon 03-07-2016 body fluid culture . Invalid Interpretation Code [facility] Work Phone: [phone] CUBF . [place] [facility] [place] [facility] Work Phone: Lab Report: GLUCOSE, SYNOVIA L FLUIDon 03-04-2016 GE use only - for Link[employer] import when terms are not otherwise specified . Invalid Interpretation Code [facility] Work Phone: [phone] GLU, SYN FLD . [place] [facility] [place] [facility] Work Phone: Lab Report: Crystals, Body F luidon 02-23-2016 PATH REV Reviewed [place] [facility] [place] [facility] Work Phone: Pathology comment Reviewed Invalid Interpretation Code [facility] Work Phone: [phone] Lab Report: Synovial Fluid R BC, WBC AND Diffon 02-22-2016 appearance, body fluid Sl Cl Invalid Interpretation Code CLEAR [facility] Work Phone: [phone] Cell Count, Synovial Fluid 0.6510 10 3 uL High 0.000-0.000 [facility] Work Phone: [phone] color, synovial fluid Yellow Invalid Interpretation Code Pale Yellow [facility] Work Phone: [phone] Erythrocytes (RBC) 0.003 10 6/UL High 0 [facility] Work Phone: [phone] Lymphocytes/100 leukocytes 18 % Invalid Interpretation Code [facility] Work Phone: [phone] Lymphocytes/100 WBC (Bld) 18 % [place] [facility] [place] [facility] Work Phone: Monocytes 66 % Invalid Interpretation Code [facility] Work Phone: [phone] Monocytes (Bld) [#/Vol] 66 % [place] [employer] Work Phone: NEUTROPHIL 14 % 0-25 [place] [employer] [facility] Work Phone: neutrophils as percent of body fluid leukocytes 14 % Invalid Interpretation Code 0-25 [facility] Work Phone: [phone] OTHER CELL /SYN 1 % [employer] [facility] Work Phone: other Cells 1 % Invalid Interpretation Code [facility] Work Phone: [phone] source of sample R,KNEE Invalid Interpretation Code [facility] Work Phone: [phone] 0.6510 10 3 uL High 0.000-0.000 [facility] [employer] [facility] Work Phone: SYNOVIAL COLOR Yellow Pale Yellow [employer] [facility] Work Phone: SYNOVIAL RBC 0.003 10 6/UL High 0 [employer] [facility] Work Phone: SYNOVIAL SOURCE R,KNEE [employer] [facility] Work Phone: SYNOVIAL WBC 0.6110 10 3UL High 0.000-0.002 [employer] [facility] Work Phone: WBC, Fluid 0.6110 10 3UL High 0.000-0.002 [facility] Work Phone: [phone] Replaced Document: Crystals, Body Fluidon 02-22-2016 crystals, body fluid SYNOVIAL Invalid Interpretation Code [facility] [facility] Work Phone: [phone] CRYSTALS/BF SYNOVIAL [place] [employer] Work Phone: EKG Report: [facility] ECG Obse augustina 10-18-2015 EKG QRS axis 2 deg [place] [employer] [facility] [place] [facility] Work Phone: electrocardiogram interpretation Sinus Bradycardia WITHIN NORMAL LIMITS Invalid Interpretation Code [facility] Work Phone: [phone] Interpretation Sinus Bradycardia WITHIN NORMAL LIMITS [place] [employer] [facility] Work Phone: P [place] 20 deg [place] [employer] [facility] Work Phone: P wave axis, electrocardiogram 20 deg Invalid Interpretation Code [facility] Work Phone: [phone] MT Interval 142 ms [place] [employer] [facility] Work Phone: MT interval, electrocardiogram 142 ms Invalid Interpretation Code [facility] Work Phone: Pulse (Heart Rate) 58 /min Invalid Interpretation Code [facility] Work Phone: QRS axis, electrocardiogram 2 deg Invalid Interpretation Code [facility] Work Phone: [phone] QRS Duration 91 ms [place] [employer] [facility] Work Phone: QRS duration, electrocardiogram 91 ms Invalid Interpretation Code [facility] Work Phone: QT Interval new path ms [place] [employer] [facility] Work Phone: QT interval, electrocardiogram new path ms Invalid Interpretation Code [facility] Work Phone: [phone] T [place] 10 deg [place] [employer] [facility] Work Phone: T wave axis, electrocardiogram 10 deg Invalid Interpretation Code [facility] Work Phone: Rx Refill: eRx Request for J ANUVIA 100 MG ORAL TABSon 09-26-2015 [employer]-scripts messenger refill request [id number]`JANUVI A 100 MG ORAL TABS`100``30 Tablet``One tablet by mouth daily```0`03/30/2015` 03/30/2015`[facility] Retail Rx*`[id number]``JANUVIA 100 MG TABLET Quantity: 30 Tablet Instructions: TAKE 1 TABLET BY MOUTH ONCE DAILY Better [facility] Work Phone: [facility]_ [id number]`JANUVI A 100 MG ORAL TABS`100``30 Tablet``One tablet by mouth daily```0`03/30/2015` 03/30/2015`[facility] Retail Rx*`[id number]``JANUVIA 100 MG TABLET Quantity: 30 Tablet Instructions: TAKE 1 TABLET BY MOUTH ONCE DAILY [facility] [place] [facility] Work Phone: Lab Report: AST(SGOT)on Aspartate aminotransferase (AST) 21 U/L Invalid Interpretation Code 15-37 [facility] Work Phone: Lab Report: Alanine Aminotra nsferas (SGPT)on 08-31-2015 Alanine aminotransferase (ALT) 46 U/L Invalid Interpretation Code 12-78 [facility] Work Phone: Lab Report: Hemoglobin A1con 08-31-2015 HbA1c 5.9 % Invalid Interpretation Code 4.2-6.3 [facility] Work Phone: Lab Report: Lipid Profileon 08-31-2015 Cholesterol 100 mg/dL Invalid Interpretation Code 200 [facility] Work Phone: [phone] HDL Cholesterol 37 mg/dL Low [facility] Work Phone: [phone] LDL Cholesterol 46 mg/dL Invalid Interpretation Code 0-130 [facility] Work Phone: [phone] Triglyceride 85 mg/dL Invalid Interpretation Code [facility] Work Phone: [phone] very low density lipoproteins 17 mg/dL Invalid Interpretation Code 5-40 [facility] Work Phone: Lab Report: Comprehensive Fl tabolic Profilon 04-15-2015 Albumin 3.8 g/dL Invalid Interpretation Code 3.4-5.0 [facility] Work Phone: [phone] Albumin/Globulin Ratio 1.3 {ratio} Invalid Interpretation Code 0.9-2.4 [facility] Work Phone: [phone] Alkaline phosphatase (ALP) 33 U/L Low 50-136 [facility] Work Phone: [phone] ALP (Bld) [Catalytic activity/Vol] 33 U/L Low 50-136 [place] [employer] [place] [facility] Work Phone: Anion gap 5 mmol/L Invalid Interpretation Code 5-15 [facility] Work Phone: [phone] Anion gap [Moles/Vol] 5 mmol/L 5-[address] [facility] [employer] [facility] [place] [facility] Work Phone: Bilirubin (total) 0.40 mg/dL Invalid Interpretation Code 0.20-1.00 [facility] Work [phone] BUN/Creatinine Ratio 16.4 RATIO Invalid Interpretation Code 10-20 [facility] Work Phone: [phone] Calcium 9.0 mg/dL Invalid Interpretation Code 8.5-10.1 [facility] Work Phone: [phone] Chloride 109 mmol/L High 98-107 [facility] Work Phone: [phone] CO2 29.0 mmol/L Invalid Interpretation Code 21.0-32.0 [facility] Work Phone: [phone] CO2 (BldV) [Partial pressure] 29.0 mmol/L 21.0-32.0 [place] [employer] [facility] [place] [facility] Work Phone: Creatinine 1.22 mg/dL Invalid Interpretation Code 0.70-1.30 [facility] Work Phone: [phone] eGFR (non-black) 82 mL/min/{1.73_m2} Invalid Interpretation Code >60 [facility] Work Phone: [phone] eGFR (non-black) 68 mL/min/{1.73_m2} Invalid Interpretation Code >60 [facility] Work Phone: [phone] EST GFR - AA 82 mL/min >60 [place] [employer] [facility] [place] [facility] Work Phone: Globulin 3.0 g/dL Invalid Interpretation Code 2.3-3.5 [facility] Work Phone: [phone] Globulin (S) [Mass/Vol] 3.0 g/dL 2.3-3.5 [place] [facility] [facility] [place] [facility] Work Phone: Glucose 119 mg/dL High 70-110 [facility] Work Phone: [phone] Glucose [Mass/Vol] 119 mg/dL High 70-110 [facility] [place] [facility] Work Phone: Potassium 4.2 mmol/L Invalid Interpretation Code 3.5-5.1 [facility] Work Phone: [phone] Protein 6.8 g/dL Invalid Interpretation Code 6.4-8.2 [facility] Work Phone: [phone] Sodium 143 mmol/L Invalid Interpretation Code 136-145 [facility] Work Phone: [phone] Urea nitrogen 20 mg/dL High 7-18 [facility] Work Phone: [phone] Lab Report: Microalb:Creat R atio,Random URon 04-15-2015 ACR (microalbumin/creatini ne) ratio 6.7 MG/G CRE Invalid Interpretation Code <30 mg/g CRE [facility] Work Phone: [phone] Albumin/Creatinine DL <= 20 mg/L (U) [Ratio] 6.7 MG/G CRE <30 mg/g CRE [facility] [employer] [facility] [place] [facility] Work Phone: Urine, creatinine 238.00 mg/dL Invalid Interpretation Code NO RANGE EST. [facility] Work Phone: Urine, microalbumin 1.6 mg/dL Invalid Interpretation Code Units converted. See lab report for original value. [facility] Work Phone: [phone] Office Visit: Hematuriaon Albumin Ql (U) trace [employer] Work Phone: Bilirubin Ql (U) Negative [facility] [employer] [facility] Work Phone: blood in urine (hemoglobin) by dipstick 3+ Invalid Interpretation Code [facility] Work Phone: [phone] Glucose Test strip (U) [Mass/Vol] Negative [employer] [place] [employer] [facility] Work Phone: Ketones (U) [Mass/Vol] Negative Bl [facility] [employer] [facility] Work Phone: Nitrite Ql (U) Negative [employer] [facility] Work Phone: pH (U) 6.0 [pH] [employer] [place] [facility] [facility] Work Phone: specific gravity, urine 1.015 Invalid Interpretation Code [facility] Work Phone: [phone] Urine, appearance cloudy Invalid Interpretation Code [facility] Work Phone: [phone] Urine, bilirubin presence Negative Invalid Interpretation Code [facility] Work Phone: [phone] Urine, color straw Invalid Interpretation Code [facility] Work Phone: [phone] Urine, glucose presence Negative Invalid Interpretation Code [facility] Work Phone: [phone] Urine, ketones presence Negative Invalid Interpretation Code [facility] Work Phone: [phone] Urine, leukocyte esterase presence Negative Invalid Interpretation Code [facility] Work Phone: [phone] Urine, nitrite presence Negative Invalid Interpretation Code [facility] Work Phone: [phone] Urine, pH 6.0 [pH] Invalid Interpretation Code [facility] Work Phone: [phone] Urine, protein trace Invalid Interpretation Code [facility] Work Phone: [phone] Urine, urobilinogen presence Negative Invalid Interpretation Code [facility] Work Phone: [phone] Bacteria identified Anaer cx Nom (Unsp spec) Anaerobic microbial culture No anaerobic bacteria isolated. [facility] Work Phone: Bacteria identified Cx Nom ( Wound) Wound Culture Staphylococcus epidermidis [facility] Work Phone: Gram stain for investigation of transfusion reaction Microscopic observation Gram stain Nom (Unsp spec) [facility] Work Phone: Vital Signs Date Time Vital Sign Value Performing Clinician Facility 12-23-2024 11:03-0400 Body height 177.[address] Jai Miranda MD Work Phone: [facility] 07-15-2024 09:55-0400 Body height 177.[address] Renzo Beatty DO Work Phone: [facility] 07-15-2024 09:55-0400 Body mass index (BMI) [Ratio] 37.3 kg/m2 Dr. Renzo Beatty DO Work Phone: [facility] 07-15-2024 09:55-0400 Body weight 117.[address] Renzo Beatty DO Work Phone: [facility] 06-22-2024 19:41-0500 Body temperature 97.8 [degF] Dr. Renzo Beatty DO Work Phone: [facility] 06-22-2024 19:41-0500 Diastolic blood pressure 79 mm[Hg] Dr. Renzo Beatty DO Work Phone: [facility] 06-22-2024 19:41-0500 Heart rate 59 /min Dr. Renzo Beatty DO Work Phone: [facility] 06-22-2024 19:41-0500 Respiratory rate 16 /min Dr. Renzo Beatty DO Work Phone: [facility] 06-22-2024 19:41-0500 SaO2% (BldA) [Mass fraction] 100 % Dr. Renzo Beatty DO Work Phone: [facility] 06-22-2024 19:41-0500 Systolic blood pressure 122 mm[Hg] Dr. Renzo Beatty DO Work Phone: [facility] 06-21-2024 17:04-0500 Body mass index (BMI) [Ratio] 37.8 kg/m2 Dr. Renzo Beatty DO Work Phone: [facility] 06-21-2024 17:04-0500 Body weight 119.[address] Renzo Beatty DO Work Phone: [facility] 06-21-2024 16:01-0500 Inhaled oxygen flow rate 4 L/min Dr. Renzo Beatty DO Work Phone: [facility] 04-07-2024 10:00-0500 Body temperature 97.1 [degF] Dr. Renzo Beatty DO Work Phone: [facility] 04-07-2024 10:00-0500 Diastolic blood pressure 75 mm[Hg] Dr. Renzo Beatty DO Work Phone: [facility] 04-07-2024 10:00-0500 Heart rate 62 /min Dr. Renzo Beatty DO Work Phone: [facility] 04-07-2024 10:00-0500 Respiratory rate 16 /min Dr. Renzo Beatty DO Work Phone: [facility] 04-07-2024 10:00-0500 SaO2% (BldA) [Mass fraction] 96 % Dr. Renzo Beatty DO Work Phone: [facility] 04-07-2024 10:00-0500 Systolic blood pressure 126 mm[Hg] Dr. Renzo Beatty DO Work Phone: [facility] 04-07-2024 08:40-0500 Inhaled oxygen flow rate 3 L/min Dr. Renzo Beatty DO Work Phone: [facility] 04-07-2024 06:01-0500 Body mass index (BMI) [Ratio] 38.4 kg/m2 Dr. Renzo Beatty DO Work Phone: [facility] 04-07-2024 06:01-0500 Body weight [address] Renzo Beatty DO Work Phone: [facility] 08-23-2023 14:30-0400 Body temperature 98 [degF] Dr. Renzo Beatty Work Phone: [facility] 08-23-2023 14:30-0400 Diastolic blood pressure 82 mm[Hg] Dr. Renzo Beatty Work Phone: [facility] 08-23-2023 14:30-0400 Heart rate 87 /min Dr. Renzo Beatty Work Phone: [facility] 08-23-2023 14:30-0400 Respiratory rate 18 /min Dr. Renzo Beatty Work Phone: [facility] 08-23-2023 14:30-0400 SaO2% (BldA) [Mass fraction] 99 % Dr. Renzo Beatty Work Phone: [facility] 08-23-2023 14:30-0400 Systolic blood pressure 137 mm[Hg] Dr. Renzo Beatty Work Phone: [facility] 08-23-2023 13:24-0400 Body height 175.[address] Renzo Beatty Work Phone: [facility] 08-23-2023 13:24-0400 Body mass index (BMI) [Ratio] 38.9 kg/m2 Dr. Renzo Beatty Work Phone: [facility] 08-23-2023 13:24-0400 Body weight 119.[address] Renzo Beatty Work Phone: [facility] 05-26-2023 11:49-0500 Body height 177.[address] Renzo Beatty Work Phone: [facility] 05-26-2023 11:49-0500 Body mass index (BMI) [Ratio] 37.9 kg/m2 Dr. Renzo Beatty Work Phone: [facility] 05-26-2023 11:49-0500 Body temperature 98.6 [degF] Dr. Renzo Beatty Work Phone: [facility] 05-26-2023 11:49-0500 Body weight 119.[address] Renzo Beatty Work Phone: [facility] 05-26-2023 11:49-0500 Diastolic blood pressure 90 mm[Hg] Dr. Renzo Beatty Work Phone: [facility] 05-26-2023 11:49-0500 Heart rate 51 /min Dr. Renzo Beatty Work Phone: [facility] 05-26-2023 11:49-0500 Respiratory rate 16 /min Dr. Renzo Beatty Work Phone: [facility] 05-26-2023 11:49-0500 SaO2% (BldA) [Mass fraction] 99 % Dr. Renzo Beatty Work Phone: [facility] 05-26-2023 11:49-0500 Systolic blood pressure 160 mm[Hg] Dr. Renzo Beatty Work Phone: [facility] 04-09-2023 10:11-0500 Body height 177.[address] Renzo Beatty Work Phone: [facility] 04-09-2023 10:11-0500 Body mass index (BMI) [Ratio] 36.8 kg/m2 Dr. Renzo Beatty Work Phone: [facility] 04-09-2023 10:11-0500 Body weight 116.[address] Renzo Beatty Work Phone: [facility] 03-18-2023 10:15-0500 Body height 177.[address] Renzo Beatty Work Phone: [facility] 03-18-2023 10:15-0500 Body mass index (BMI) [Ratio] 36.6 kg/m2 Dr. Renzo Beatty Work Phone: [facility] 03-18-2023 10:15-0500 Body temperature 97.5 [degF] Dr. Renzo Beatty Work Phone: [facility] 03-18-2023 10:15-0500 Body weight 115.[address] Renzo Beatty Work Phone: [facility] 03-18-2023 10:15-0500 Diastolic blood pressure 94 mm[Hg] Dr. Renzo Beatty Work Phone: [facility] 03-18-2023 10:15-0500 Heart rate 72 /min Dr. Renzo Beatty Work Phone: [facility] 03-18-2023 10:15-0500 Respiratory rate 16 /min Dr. Renzo Beatty Work Phone: [facility] 03-18-2023 10:15-0500 SaO2% (BldA) [Mass fraction] 97 % Dr. Renzo Beatty Work Phone: [facility] 03-18-2023 10:15-0500 Systolic blood pressure 145 mm[Hg] [facility]. Renzo Beatty Work Phone: [facility] [facility] 03-11-2023 15:30-0500 Body temperature 98 [degF] Dr. Renzo Beatty Work Phone: [facility] 03-11-2023 15:30-0500 Diastolic blood pressure 89 mm[Hg] Dr. Renzo Beatty Work Phone: [facility] 03-11-2023 15:30-0500 Heart rate 52 /min Dr. Renzo Beatty Work Phone: [facility] 03-11-2023 15:30-0500 Respiratory rate 16 /min Dr. Renzo Beatty Work Phone: [facility] 03-11-2023 15:30-0500 SaO2% (BldA) [Mass fraction] 98 % Dr. Renzo Beatty Work Phone: [facility] 03-11-2023 15:30-0500 Systolic blood pressure 149 mm[Hg] Dr. Renzo Beatty Work Phone: [facility] 03-11-2023 13:54-0500 Body height 175.[address] Renzo Beatty Work Phone: [facility] 03-11-2023 13:54-0500 Body mass index (BMI) [Ratio] 38.2 kg/m2 Dr. Renzo Beatty Work Phone: [facility] 03-11-2023 13:54-0500 Body weight 117.[address] Renzo Beatty Work Phone: [facility] 01-31-2023 15:00-0400 Body temperature 97.8 [degF] Dr. Renzo Beatty Work Phone: [facility] 01-31-2023 15:00-0400 Diastolic blood pressure 85 mm[Hg] Dr. Renzo Beatty Work Phone: [facility] 01-31-2023 15:00-0400 Heart rate 63 /min Dr. Renzo Beatty Work Phone: [facility] 01-31-2023 15:00-0400 Respiratory rate 18 /min Dr. Renzo Beatty Work Phone: [facility] 01-31-2023 15:00-0400 SaO2% (BldA) [Mass fraction] 100 % Dr. Renzo Beatty Work Phone: [facility] 01-31-2023 15:00-0400 Systolic blood pressure 145 mm[Hg] Dr. Renzo Beatty Work Phone: [facility] 01-30-2023 12:59-0400 Body weight 124.[address] Renzo Beatty Work Phone: [facility] 01-28-2023 18:47-0400 Inhaled oxygen flow rate 2 L/min Dr. Renzo Beatty Work Phone: [facility] 01-28-2023 12:47-0400 Body mass index (BMI) [Ratio] 40.4 kg/m2 Dr. Renzo Beatty Work Phone: [facility] 11-13-2022 10:01-0400 Body height 175.[address] Renzo Beatty Work Phone: [facility] 11-13-2022 10:01-0400 Body mass index (BMI) [Ratio] 38.7 kg/m2 Dr. Renzo Beatty Work Phone: [facility] 11-13-2022 10:01-0400 Body weight 118.[address] Renzo Beatty Work Phone: [facility] 09-17-2022 15:20-0400 Body temperature 97.2 [degF] Dr. Renzo Beatty Work Phone: [facility] 09-17-2022 15:20-0400 Diastolic blood pressure 72 mm[Hg] Dr. Renzo Beatty Work Phone: [facility] 09-17-2022 15:20-0400 Heart rate 52 /min Dr. Renzo Beatty Work Phone: [facility] 09-17-2022 15:20-0400 Respiratory rate 18 /min Dr. Renzo Beatty Work Phone: [facility] 09-17-2022 15:20-0400 SaO2% (BldA) [Mass fraction] 100 % Dr. Renzo Beatty Work Phone: [facility] 09-17-2022 15:20-0400 Systolic blood pressure 131 mm[Hg] Dr. Renzo Beatty Work Phone: [facility] 09-17-2022 14:45-0400 Inhaled oxygen flow rate 2 L/min Dr. Renzo Beatty Work Phone: [facility] 09-17-2022 12:34-0400 Body height 175.[address] Renzo Beatty Work Phone: [facility] 09-17-2022 12:34-0400 Body mass index (BMI) [Ratio] 34.4 kg/m2 Dr. Renzo Beatty Work Phone: [facility] 09-17-2022 12:34-0400 Body weight [address] Renzo Beatty Work Phone: [facility] 09-12-2022 12:36-0400 Body mass index (BMI) [Ratio] 37.6 kg/m2 Dr. Renzo Beatty Work Phone: [facility] 09-12-2022 12:36-0400 Body weight 115.[address] Renzo Beatty Work Phone: [facility] 09-12-2022 12:36-0400 Diastolic blood pressure 88 mm[Hg] Dr. Renzo Beatty Work Phone: [facility] 09-12-2022 12:36-0400 Systolic blood pressure 134 mm[Hg] Dr. Renzo Beatty Work Phone: [facility] 08-08-2022 15:10-0400 Body temperature 98.1 [degF] Dr. Renzo Beatty Work Phone: [facility] 08-08-2022 15:10-0400 Diastolic blood pressure 76 mm[Hg] Dr. Renzo Beatty Work Phone: [facility] 08-08-2022 15:10-0400 Heart rate 65 /min Dr. Renzo Beatty Work Phone: [facility] 08-08-2022 15:10-0400 Respiratory rate 16 /min Dr. Renzo Beatty Work Phone: [facility] 08-08-2022 15:10-0400 SaO2% (BldA) [Mass fraction] 99 % Dr. Renzo Beatty Work Phone: [facility] 08-08-2022 15:10-0400 Systolic blood pressure 133 mm[Hg] Dr. Renzo Beatty Work Phone: [facility] 08-05-2022 18:30-0400 Body height 175.[address] Renzo Beatty Work Phone: [facility] 08-05-2022 18:30-0400 Body mass index (BMI) [Ratio] 37.8 kg/m2 Dr. Renzo Beatty Work Phone: [facility] 08-05-2022 18:30-0400 Body weight [address] Renzo Beatty Work Phone: [facility] 08-05-2022 18:30-0400 Inhaled oxygen flow rate 2 L/min Dr. Renzo Beatty Work Phone: [facility] 06-03-2022 14:28-0500 Body height 175.[address] Renzo Beatty Work Phone: [facility] 06-03-2022 14:28-0500 Body mass index (BMI) [Ratio] 38.9 kg/m2 Dr. Renzo Beatty Work Phone: [facility] 06-03-2022 14:28-0500 Body weight 119.[address] Renzo Beatty Work Phone: [facility] 04-11-2022 11:58-0500 Body temperature 99.3 [degF] Dr. Renzo Beatty Work Phone: [facility] 04-11-2022 11:58-0500 Diastolic blood pressure 82 mm[Hg] Dr. Renzo Beatty Work Phone: [facility] 04-11-2022 11:58-0500 Heart rate 61 /min Dr. Renzo Beatty Work Phone: [facility] 04-11-2022 11:58-0500 Respiratory rate 20 /min Dr. Renzo Beatty Work Phone: [facility] 04-11-2022 11:58-0500 SaO2% (BldA) [Mass fraction] 98 % Dr. Renzo Beatty Work Phone: [facility] 04-11-2022 11:58-0500 Systolic blood pressure 138 mm[Hg] Dr. Renzo Beatty Work Phone: [facility] 03-19-2022 14:05-0500 Body mass index (BMI) [Ratio] 36.1 kg/m2 Dr. Renzo Beatty Work Phone: [facility] 03-19-2022 14:05-0500 Body temperature 97 [degF] Dr. Renzo Beatty Work Phone: [facility] 03-19-2022 14:05-0500 Diastolic blood pressure 77 mm[Hg] Dr. Renzo Beatty Work Phone: [facility] 03-19-2022 14:05-0500 Heart rate 79 /min Dr. Renzo Beatty Work Phone: [facility] 03-19-2022 14:05-0500 Systolic blood pressure 139 mm[Hg] Dr. Renzo Beatty Work Phone: [facility] 02-26-2022 00:36-0400 Body weight 111.[address] Renzo Beatty Work Phone: [facility] 02-26-2022 00:36-0400 Respiratory rate 18 /min Dr. Renzo Beatty Work Phone: [facility] 02-19-2022 07:59-0400 Body mass index (BMI) [Ratio] 36.1 kg/m2 Dr. Renzo Beatty Work Phone: [facility] Work Phone: 02-19-2022 07:59-0400 Body temperature 96.7 [degF] Dr. Renzo Beatty Work Phone: [facility] Work Phone: 02-19-2022 07:59-0400 Diastolic blood pressure 68 mm[Hg] Dr. Renzo Beatty Work Phone: [facility] Work Phone: 02-19-2022 07:59-0400 Heart rate 53 /min Dr. Renzo Beatty Work Phone: [facility] Work Phone: 02-19-2022 07:59-0400 Respiratory rate 18 /min Dr. Renzo Beatty Work Phone: [facility] Work Phone: 02-19-2022 07:59-0400 Systolic blood pressure 135 mm[Hg] Dr. Renzo Beatty Work Phone: [facility] Work Phone: 02-05-2022 13:12-0400 Body mass index (BMI) [Ratio] 36.1 kg/m2 Dr. Renzo Beatty Work Phone: [facility] Work Phone: 02-05-2022 13:12-0400 Body temperature 97.5 [degF] Dr. Renzo Beatty Work Phone: [facility] Work Phone: 02-05-2022 13:12-0400 Diastolic blood pressure 87 mm[Hg] Dr. Renzo Beatty Work Phone: [facility] Work Phone: 02-05-2022 13:12-0400 Heart rate 61 /min Dr. Renzo Beatty Work Phone: [facility] Work Phone: 02-05-2022 13:12-0400 Systolic blood pressure 135 mm[Hg] Dr. Renzo Beatty Work Phone: [facility] Work Phone: 01-26-2022 01:45-0400 Body weight 111.[address] Renzo Beatty Work Phone: [facility] Work Phone: 01-26-2022 01:45-0400 Respiratory rate 22 /min Dr. Renzo Beatty Work Phone: [facility] Work Phone: 01-22-2022 11:04-0400 Body mass index (BMI) [Ratio] 36.1 kg/m2 Dr. Renzo Beatty Work Phone: [facility] Work Phone: 01-22-2022 11:04-0400 Body temperature 97.3 [degF] Dr. Renzo Beatty Work Phone: [facility] Work Phone: 01-22-2022 11:04-0400 Diastolic blood pressure 85 mm[Hg] Dr. Renzo Beatty Work Phone: [facility] Work Phone: 01-22-2022 11:04-0400 Heart rate 55 /min Dr. Renzo Beatty Work Phone: [facility] Work Phone: 01-22-2022 11:04-0400 Respiratory rate 22 /min Dr. Renzo Beatty Work Phone: [facility] Work Phone: 01-22-2022 11:04-0400 Systolic blood pressure 147 mm[Hg] Dr. Renzo Beatty Work Phone: [facility] Work Phone: 01-08-2022 13:12-0400 Body height 175.[address] Renzo Beatty Work Phone: [facility] Work Phone: 01-08-2022 13:12-0400 Body weight 111.[address] Renzo Beatty Work Phone: [facility] Work Phone: 01-01-2022 13:58-0400 Body temperature 98.4 [degF] Dr. Renzo Beatty Work Phone: [facility] Work Phone: 01-01-2022 13:58-0400 Diastolic blood pressure 98 mm[Hg] Dr. Renzo Beatty Work Phone: [facility] Work Phone: 01-01-2022 13:58-0400 Heart rate 62 /min Dr. Renzo Beatty Work Phone: [facility] Work Phone: 01-01-2022 13:58-0400 Respiratory rate 16 /min Dr. Renzo Beatty Work Phone: [facility] Work Phone: 01-01-2022 13:58-0400 SaO2% (BldA) [Mass fraction] 99 % Dr. Renzo Beatty Work Phone: [facility] Work Phone: 01-01-2022 13:58-0400 Systolic blood pressure 142 mm[Hg] Dr. Renzo Beatty Work Phone: [facility] Work Phone: 12-18-2021 10:36-0400 Body mass index (BMI) [Ratio] 35.9 kg/m2 Dr. Renzo Beatty Work Phone: [facility] Work Phone: 12-18-2021 10:36-0400 Body weight 113.[address] Renzo Beatty Work Phone: [facility] Work Phone: 12-18-2021 10:36-0400 Diastolic blood pressure 84 mm[Hg] Dr. Renzo Beatty Work Phone: [facility] Work Phone: 12-18-2021 10:36-0400 Systolic blood pressure 138 mm[Hg] Dr. Renzo Beatty Work Phone: [facility] Work Phone: 10-15-2021 11:01-0400 Body temperature 98 [degF] Dr. Renzo Beatty Work Phone: [facility] Work Phone: 10-15-2021 11:01-0400 Diastolic blood pressure 74 mm[Hg] Dr. Renzo Beatty Work Phone: [facility] Work Phone: 10-15-2021 11:01-0400 Heart rate 57 /min Dr. Renzo Beatty Work Phone: [facility] Work Phone: 10-15-2021 11:01-0400 Respiratory rate 14 /min Dr. Renzo Beatty Work Phone: [facility] Work Phone: 10-15-2021 11:01-0400 SaO2% (BldA) [Mass fraction] 98 % Dr. Renzo Beatty Work Phone: [facility] Work Phone: 10-15-2021 11:01-0400 Systolic blood pressure 138 mm[Hg] Dr. Renzo Beatty Work Phone: [facility] Work Phone: 01-09-2017 17:07-0400 BMI (Body Mass Index) 49.61 kg/m2 Sho Welch LPN [facility] Work Phone: 01-09-2017 17:07-0400 Body Temperature 97.1 [degF] Sho Welch LPN [facility] Work Phone: 01-09-2017 17:07-0400 BP Diastolic 86 mm[Hg] Sho Welch LPN [facility] Work Phone: 01-09-2017 17:07-0400 BP Systolic 128 mm[Hg] Sho Welch LPN [facility] Work Phone: 01-09-2017 17:07-0400 Height 175.26 cm Sho Wlech LPN [facility] Work Phone: 01-09-2017 17:07-0400 Pulse (Heart Rate) 62 /min Sho Welch LPN [facility] Work Phone: 01-09-2017 17:07-0400 Respiratory Rate 14 /min Sho Welch LPN [facility] Work Phone: 01-09-2017 17:07-0400 Weight 152.41 kg Sho Welch LPN [facility] Work Phone: 11-18-2016 10:53-0400 BMI (Body Mass Index) 50.23 kg/m2 Fadia Patel LPN [facility] Work Phone: 11-18-2016 10:53-0400 Body Temperature 98.8 [degF] Fadia Patel LPN [facility] Work Phone: 11-18-2016 10:53-0400 BP Diastolic 90 mm[Hg] Fadia Patel LPN [facility] Work Phone: 11-18-2016 10:53-0400 BP Systolic 150 mm[Hg] Fadia Patel [facility] Work Phone: 11-18-2016 10:53-0400 Height 175.26 cm Fadia Patel LPN [facility] Work Phone: 11-18-2016 10:53-0400 Pulse (Heart Rate) 91 /min Fadia Patel LPN [facility] Work Phone: 11-18-2016 10:53-0400 Respiratory Rate 16 /min Fadia Patel LPN [facility] Work Phone: 11-18-2016 10:53-0400 Weight 154.31 kg Fadia Patel LPN [facility] Work Phone: 10-18-2015 15:34-0400 Heart rate 58 /min Kayleigh [facility] Work Phone: 10-18-2015 14:20-0400 BMI (Body Mass Index) 49.04 kg/m2 [facility] Work Phone: 10-18-2015 14:20-0400 Body Temperature 98.2 [degF] [facility] Work Phone: 10-18-2015 14:20-0400 Body weight 155.04 kg Kayleigh Tian [employer] Work Phone: 10-18-2015 14:20-0400 BP Diastolic 78 mm[Hg] [facility] Work Phone: 10-18-2015 14:20-0400 BP Systolic 120 mm[Hg] [facility] Work Phone: 10-18-2015 14:20-0400 BSA (Body Surface Area) 2.62 m2 [facility] Work Phone: 10-18-2015 14:20-0400 Pulse (Heart Rate) 60 /min [facility] Work Phone: 10-18-2015 14:20-0400 Pulse Oximetry 98 % [facility] Work Phone: 10-18-2015 14:20-0400 Respiratory Rate 16 /min [facility] [address] [facility] Work Phone: 10-18-2015 14:20-0400 Weight 155.04 kg Maru SOUZA [facility] Work Phone: 08-04-2010 11:20-0400 Height 177.8 cm Maru SOUZA [facility] Work Phone: 08-04-2010 11:20-0400 Pulse (Heart Rate) 89 /min Maru [facility] Work Phone: Encounters Encounter Date Encounter Type Care Provider Facility Start: 01-28-2025 End: 01-28-2025 ambulatory Renzo Jcai Facility:[facility] Start: 01-27-2025 End: 01-27-2025 ambulatory Renzo [facility] Facility:[facility] Start: 12-23-2024 End: 12-23-[address] Jai Miranda MD -[facility] Work Phone: Start: 12-23-2024 End: 12-23-[address] Jai Miranda MD Work Phone: -[facility] Start: 12-21-2024 End: 12-21-[address] Jai Miranda MD Work Phone: -Radiology [facility] Start: 12-21-2024 End: 12-21-[address] Jai Miranda MD -Radiology [facility] Work Phone: Start: 12-21-2024 End: 12-21-2024 ambulatory Jai Miranda Facility:[facility] Start: 10-11-2024 End: 10-11-[address] Renzo Beatty DO Work Phone: [facility] Work Phone: Start: 10-11-2024 End: 10-11-[address] Jai Miranda MD -Physical Therapy Work Phone: Start: 09-21-[address] Jai garcía MD -Physical Therapy Work Phone: Start: 09-21-2024 End: 09-21-[address] Renzo Beatty DO Work Phone: [facility] Work Phone: Start: 09-21-2024 End: 09-21-[address] Jai Miranda MD -[facility] Work Phone: Start: 09-21-2024 End: 09-21-2024 ambulatory Jai Miranda Facility:[facility] Start: 09-16-[address] Jai garcía MD -Physical Therapy Work Phone: Start: 08-05-[address] Jai garcía MD -Physical Therapy Work Phone: Start: 08-03-2024 End: 08-03-[address] Renzo Beatty DO Work Phone: [facility] Work Phone: Start: 08-03-2024 End: 08-03-[address] Jai Miranda MD -[facility] Work Phone: Start: 08-03-2024 End: 08-03-2024 ambulatory Jai Miranda Facility:[facility] Start: 07-22-[address] Jai garcía MD -Physical Therapy Work Phone: Start: 07-15-2024 End: 07-15-2024 Patient encounter procedure Eden Sorto [employer] -Cardiovascular Services Work Phone: Start: 07-15-2024 End: 07-15-[address] Renzo Beatty DO Work Phone: [facility] Work Phone: Start: 07-15-2024 End: 07-15-2024 ambulatory Eden Sorto Facility:[facility] Start: 07-14-[address] Jai garcía MD -Physical Therapy Work Phone: Start: 07-09-2024 Encounter for other preprocedural examination Mayco Johnson [facility] Start: 07-06-2024 End: 07-06-2024 Patient encounter procedure Yesenia GERARD -[facility] Work Phone: Start: 07-06-2024 End: 07-06-[address] Renzo Beatty DO Work Phone: [facility] Work Phone: Start: 07-06-2024 End: 07-06-2024 ambulatory Yesenia Coy Facility:[facility] Start: 06-22-2024 Non-patient / Non-visit [facility]. Claudia Clemente [facility] Work Phone: Start: 06-22-2024 Non-patient / [facility] Start: 06-21-2024 Non-patient / Non-visit [facility]. Mayco pate [facility] Work Phone: Start: 06-21-2024 Non-patient / Non-visit Dr. Mayco perry MD -[facility] Start: 06-21-20[facility] Start: 06-21-2024 End: 06-22-2024 Evaluation and management of inpatient Dr. Jai Miranda MD -Medical Surgical 3 Work Phone: Start: 06-21-2024 Non-patient / Non-visit Dr. Jai dorantes MD -[facility] Start: 06-21-2024 [facility] Start: 06-11-2024 End: 06-11-[address] Jai Miranda MD -[facility] Work Phone: Start: 06-11-2024 End: 06-11-2024 ambulatory Jaigenevieve Miranda Facility:[facility] Start: 06-10-2024 Encounter for genera l adult medical examination without abnormal findings Renzo Beatty [facility] Start: 05-27-2024 End: 05-27-2024 ambulatory Enresto Ramirez Facility:[facility] Start: 05-27-[address] Ernesto lux MD -Physical Therapy Work Phone: Start: 05-17-2024 End: 05-17-2024 ambulatory Ernesto Mollison Facility:[facility] Start: 05-17-2024 End: 05-17-[address] Ernesto Ramirez MD -[facility] Work Phone: Start: 05-17-2024 End: 05-17-2024 ambulatory Renzo Jaci Facility:[facility] Start: 04-19-2024 End: 04-19-[address] Ernesto Ramirez MD -[facility] Work Phone: Start: 04-19-2024 End: 04-19-2024 ambulatory Ernesto Mollалександр Facility:[facility] Start: 04-09-2024 End: 04-09-[address] Ernesto Ramirez MD -[facility] Work Phone: Start: 04-09-2024 End: 04-09-2024 ambulatory Ernesto Mollison Facility:[facility] Start: 04-07-2024 ambulatory Ernesto Mollison Facility :[facility] Start: 04-07-2024 Non-patient / Non-visit Dr. Ernesto barkley MD -[facility] Start: 04-07-2024 End: 04-07-2024 Admission to same day surgery center Dr. Ernesto Ramirez MD -S[facility] Day [facility] Start: 04-07-2024 End: 04-07-2024 ambulatory Ernesto [facility] Facility:[facility] Start: 04-05-2024 End: 04-05-[address] Jai Miranda MD -[facility] Work Phone: Start: 04-05-2024 End: 04-05-2024 ambulatory Jai Miranda Facility:[facility] Start: 03-31-2024 End: 03-31-[address] Renzo Beatty DO -Outpatient Bone Densitometry Work Phone: Start: 03-31-2024 End: 03-31-2024 ambulatory Renzo [facility] Facility:[facility] Start: 03-29-2024 End: 03-29-2024 ambulatory [facility] Start: 03-29-2024 End: 03-29-2024 Non-patient / Non-visit Dr. Rickey Winkler MD -[place] [facility] Work Phone: Start: 03-26-2024 End: 03-26-[address] Jai Miranda MD -[facility] Work Phone: Start: 03-26-2024 End: 03-26-2024 ambulatory Jai Miranda Facility:[facility] Start: 03-05-2024 End: 03-05-2024 ambulatory Renzo Beatty Facility:[facility] Start: 08-23-2023 End: 08-23-2023 Emergency department patient visit Dr. Renzo Beatty Work Phone: [facility]-Emergency Department Work Phone: Start: 08-21-[address] Renzo Beatty Work Phone: [facility]-Physical Therapy Work Phone: Start: 07-11-2023 End: 07-11-[address] Renzo Beatty Work Phone: [facility] Work Phone: Start: 07-11-2023 End: 07-11-[address] Renzo Beatty Work Phone: [facility] Work Phone: Start: 05-26-2023 Non-patient / Non-visit Dr. Claudia Beatty Work Phone: [facility] Start: 05-26-2023 End: 05-26-2023 Emergency department patient visit Dr. Renzo Beatty Work Phone: [facility]-Emergency Department Work Phone: Start: 05-14-2023 End: 05-14-[address] Renzo Beatty Work Phone: [facility] Work Phone: Start: 05-14-2023 End: 05-14-[address] [facility] Start: 04-23-2023 End: 04-23-[address] Renzo Beatty Work Phone: [facility] Work Phone: Start: 04-23-2023 End: 04-23-[address] Renzo Beatty Work Phone: [facility]-Physical Therapy Work Phone: Start: 04-23-[address] Renzo Beatty Work Phone: [facility]-Physical Therapy Work Phone: Start: 04-09-2023 End: 04-09-[address] Renzo Beatty Work Phone: [facility] Work Phone: Start: 03-24-[address] Renzo Beatty Work Phone: [facility]-Physical Therapy Work Phone: Start: 03-18-2023 End: 03-18-[address] Renzo Beatty Work Phone: [facility] Work Phone: Start: 03-18-2023 End: 03-18-[address] Renzo Beatty Work Phone: [facility] Work Phone: Start: 03-12-[address] Renzo Beatty Work Phone: [facility]-Physical Therapy Work Phone: Start: 03-11-2023 Non-patient / Non-visit Dr. Claudia Beatty Work Phone: [facility] Start: 03-11-2023 End: 03-11-2023 Admission to same day surgery center Dr. Renzo Beatty Work Phone: [facility]-Surgical Day Care Start: 03-11-2023 End: 03-11-[address] Renzo Beatty Work Phone: [facility] Work Phone: Start: 03-10-2023 End: 03-10-[address] Renzo Beatty Work Phone: [facility] Work Phone: Start: 03-10-2023 End: 03-10-[address] Renzo eBatty Work Phone: [facility] Work Phone: Start: 03-07-[address] Renzo Beatty Work Phone: [facility]-Physical Therapy Work Phone: Start: 02-10-2023 End: 02-10-[address] Renzo Beatty Work Phone: [facility] Work Phone: Start: 01-31-2023 Non-patient / Non-visit Dr. Claudia Beatty Work Phone: [facility] Start: 01-30-2023 Non-patient / Non-visit Dr. Claudia Beatty Work Phone: [facility] Start: 01-29-2023 Non-patient / Non-visit Dr. Claudia Beatty Work Phone: [facility] Start: 01-28-2023 Non-patient / Non-visit Dr. Claudia Beatty Work Phone: [facility] Start: 01-28-2023 End: 01-31-2023 Evaluation and management of inpatient Dr. Renzo Beatty Work Phone: [facility]-Medical Surgical 3 Work Phone: Start: 01-16-2023 End: 01-16-[address] Renzo Beatty Work Phone: [facility] Work Phone: Start: 12-04-2022 End: 12-04-[address] Renzo Beatty Work Phone: [facility] Work Phone: Start: 12-04-2022 End: 12-04-[address] Renzo Beatty Work Phone: [facility] Work Phone: Start: 11-26-2022 End: 11-26-[address] Renzo Beatty Work Phone: [facility] Work Phone: Start: 11-26-2022 End: 11-26-[address] Renzo Beatty Work Phone: [facility]-Physical Therapy Work Phone: Start: 11-13-2022 End: 11-13-[address] Renzo Beatty Work Phone: [facility] Work Phone: Start: 11-01-2022 End: 11-01-[address] Renzo Beatty Work Phone: [facility] Work Phone: Start: 10-23-[address] Renzo Beatty Work Phone: [facility]-Physical Therapy Work Phone: Start: 10-21-2022 End: 10-21-[address] Renzo Beatty Work Phone: [facility] Work Phone: Start: 10-21-2022 End: 10-21-[address] Renzo Beatty Work Phone: [facility]-MRI - [facility] Work Phone: Start: 10-14-2022 End: 10-14-[address] Renzo Beatty Work Phone: [facility] Work Phone: Start: 10-02-2022 End: 10-02-[address] Renzo Beatty Work Phone: [facility] Work Phone: Start: 09-17-2022 Non-patient / Non-visit Dr. Claudia Beatty Work Phone: [facility] Start: 09-17-2022 End: 09-17-2022 Admission to same day surgery center Dr. Renzo Beatty Work Phone: [facility]-Surgical Day Care Start: 09-16-2022 End: 09-16-[address] Renzo Beatty Work Phone: [facility] Work Phone: Start: 09-12-2022 End: 09-12-[address] Renzo Beatty Work Phone: [facility] Work Phone: Start: 09-06-2022 End: 09-06-[address] Renzo Beatty Work Phone: [facility]-Radiology, [facility] Work Phone: Start: 09-06-2022 End: 09-06-[address] Renzo Beatty Work Phone: [facility] Work Phone: Start: 08-19-2022 End: 08-19-[address] Renzo Beatty Work Phone: [facility] Work Phone: Start: 08-09-2022 Non-patient / Non-visit Dr. Claudia Beatty Work Phone: [facility] Start: 08-08-2022 Non-patient / Non-visit Dr. Claudia Beatty Work Phone: [facility] [place] Start: 08-07-2022 Non-patient / Non-visit Dr. Claudia Beatty Work Phone: [facility] Start: 08-06-2022 Non-patient / Non-visit Dr. Claudia Beatty Work Phone: [facility] Start: 08-05-2022 Non-patient / Non-visit Dr. Claudia Beatty Work Phone: [facility] Start: 08-05-2022 End: 08-08-2022 Evaluation and management of inpatient Dr. Renzo Beatty Work Phone: [facility]-Medical Surgical 3 Start: 07-25-2022 End: 07-25-[address] Renzo Beatty Work Phone: [facility] Start: 07-15-2022 End: 07-15-[address] Renzo Beatty Work Phone: [facility] Work Phone: Start: 07-15-2022 End: 07-15-[address] Renzo Beatty Work Phone: [facility] Start: 06-20-2022 Non-patient / Non-visit Dr. Claudia Beatty Work Phone: [facility] Start: 06-20-2022 End: 06-20-[address] Renzo Beatty Work Phone: [facility] Work Phone: Start: 06-20-2022 End: 06-20-[address] Renzo Beatty Work Phone: [facility] Start: 06-03-2022 End: 06-03-[address] Renzo Beatty Work Phone: [facility] Start: 05-30-2022 End: 05-30-[address] Renzo Beatty Work Phone: [facility] Start: 04-11-2022 End: 04-11-[address] Renzo Beatty Work Phone: [facility] Start: 03-19-2022 End: 03-19-[address] Renzo Beatty Work Phone: [facility] Work Phone: Start: 03-19-2022 End: 03-19-[address] [facility] Start: 03-15-2022 End: 03-15-[address] Renzo Beatty Work Phone: [facility] Start: 03-08-2022 End: 03-08-[address] Renzo Beatty Work Phone: [facility] Start: 03-01-2022 End: 03-01-[address] Renzo Beatty Work Phone: [facility] Start: 02-19-2022 End: 02-25-[address] Renzo Beatty Work Phone: [facility] Work Phone: Start: 02-19-2022 End: 02-25-[address] Ren[facility] Beat[facility] Start: 02-11-2022 End: 02-11-[address] Renzo Beatty Work Phone: [facility] Start: 02-09-2022 End: 02-09-[address] Renzo Beatty Work Phone: [facility] Work Phone: Start: 02-09-2022 End: 02-09-[address] Renzo Beatty Work Phone: [facility]-Laboratory Start: 02-05-[address] Renzo Beatty Work Phone: [facility] Start: 02-04-2022 End: 02-04-[address] Renzo Beatty Work Phone: [facility] Start: 01-22-2022 End: 01-25-[address] Renzo Beatty Work Phone: [facility] Work Phone: Start: 01-22-2022 End: 01-25-[address] Renzo Beatty Work Phone: [facility] Start: 01-22-2022 End: 01-22-[address] Renzo Beatty Work Phone: [facility] Start: 01-15-2022 End: 01-15-[address] Renzo Beatty Work Phone: [facility] Start: 01-01-2022 End: 01-01-[address] Renzo Beatty Work Phone: [facility] Start: 12-25-2021 End: 12-25-[address] Renzo Beatty Work Phone: [facility] Start: 12-18-2021 End: 12-18-[address] Renzo Beatty Work Phone: [facility] Start: 10-15-2021 End: 10-15-[address] Renzo Beatty Work Phone: [facility] Start: 06-23-2018 Patient encounter procedure MAKI RUSH Facility:[facility] Start: 03-25-2018 End: 03-25-2018 Patient encounter procedure ANIRUDH MUJICA Facility:[facility] Start: 12-19-2017 End: 12-20-2017 Patient encounter procedure ROSALINDAER R GARRET Facility:[facility] Start: 12-12-2017 Patient encounter procedure CHRISTOPHER R GARRET Facility:[facility] Start: 10-21-2017 End: 10-21-2017 Patient encounter procedure IMCA Facility:[facility] Start: 09-12-2017 End: 09-12-2017 Patient encounter procedure CHRISTOPHER R GARRET Facility:[facility] Start: 09-02-2017 End: 09-02-2017 Patient encounter procedure Cyril Combs Work Phone: [facility] Start: 09-02-2017 Results Only Cyril Combs Work Phone: [facility] Start: 09-02-2017 End: 09-04-2017 Evaluation and management of inpatient CHRISTOPHER R GARRET Facility:[facility] Start: 08-26-2017 End: 08-27-2017 Patient encounter procedure MAKI RUSH Facility:[facility] Start: 08-21-2017 End: 08-21-2017 Patient encounter procedure SUZE COMBS Facility:[facility] Start: 07-22-2017 End: 07-22-2017 Patient encounter procedure MAKI KIRBYSH Facility:[facility] Start: 07-08-2017 Patient encounter procedure ELTON GONZALEZ Facility:[facility] Start: 06-25-2017 Patient encounter procedure MAKI JESUSTASH Facility:[facility] Start: 06-24-2017 End: 06-24-2017 Patient encounter procedure MAKI JESUSTASH Facility:[facility] Start: 06-10-2017 End: 06-10-2017 Patient encounter procedure ELTON GONZALEZ Facility:[facility] Start: 05-20-2017 Patient encounter procedure ELTON GONZALEZ Facility:[facility] Start: 05-13-2017 End: 05-13-2017 Patient encounter procedure MAKI KIRBYSH Facility:[facility] Start: 04-25-2017 Patient encounter procedure MAKI RUSH Facility:[facility] Start: 04-14-2017 End: 04-14-2017 Patient encounter procedure Cyril Combs Work Phone: [facility] Start: 04-14-2017 Results Only Cyril oCmbs Work Phone: [facility] Start: 04-14-2017 End: 04-14-2017 Evaluation and management of inpatient ROSALINDAER R GARRET Facility:[facility] Procedures Date Procedure Procedure Detail Performing Clinician Start: 12-21-2024 X-ray of lumbosacral spine Dr. Jai Miranda MD Work Phone: Start: 09-21-2024 X-ray of lumbar spin e, two or three views Dr. Rnezo Beatty DO Work Phone: Start: 08-03-2024 X-ray of lumbar spin e, two or three views Dr. Renzo Beatty DO Work Phone: Start: 07-06-2024 X-ray of lumbar spin e, two or three views Dr. Renzo Beatty DO Work Phone: Start: 06-22-2024 X-ray of lumbar spin e, two or three views Dr. Renzo Beatty DO Work Phone: Start: 06-22-[address] Renzo Beatty DO Work Phone: Start: 06-22-2024 Measurement of renal function Dr. Renzo Beatty DO Work Phone: Comment on above: GFR Calc Start: 06-21-2024 Fluoroscopic guidance Negin Beatty DO Work Phone: Start: 06-21-2024 X-ray of lumbar spin e, two or three views Dr. Renzo Beatty DO Work Phone: Start: 06-21-[address] Ruchi Beatty DO Work Phone: Start: 06-11-2024 Methicillin resistan t Staphylococcus aureus screening test Dr. Renzo Beatty DO Work Phone: Start: 06-11-2024 Hepatitis A virus antibody, total measurement Dr. Renzo Beatty DO Work Phone: Comment on above: Comment: The HAV tot al antibody assay detects both IgG andIgM but does not differentiate between them. A negativeresult suggests susceptibility to infection. A positiveresult could be due to vaccination, previously resolvedinfection or active infection. Testing for HAV IgM shouldbe performed if active HAV infection is suspected. [facility] profiles that will automatically reflex positive HAVtotal antibody results to IgM (e.g., panel #[id number] HAVAntibody w/ Rfx).Performed at: [address] [id number] Director: Walter Olmos PhD, Phone: [phone] Start: 06-11-2024 Hepatitis C antibody measurement Dr. Renzo Beatty DO Work Phone: Comment on above: Non Reactive: < 0.8 Equivocal: >/= 0.8 to < 1.0 Reactive: >/= 1.0The CDC requires that a reactive/equivocal HCV antibody result be sent out for confirmation. HCV Quant by PCR testing. Start: 03-31-2024 Dual energy X-ray absorptiometry Dr. Renzo Beatty DO Work Phone: Start: 03-26-2024 MRI of lumbar spine Dr. Renzo Beatty DO Work Phone: Start: 08-23-[address] Ruchi Beatty Work Phone: Start: 08-23-2023 Radiologic examinati on of knee Dr. Renzo Beatty Work Phone: Start: 07-11-2023 End: 07-11-2023 Plain X-ray of shoulder Dr. Renzo Han n Work Phone: Start: 07-11-2023 X-ray of cervical spine Dr. Renzo Beatty Work Phone: Start: 03-18-2023 Plain x-ray of hand Dr. Renzo Beatty Work Phone: Start: 03-11-2023 Manipulation of lower limb Dr. Renzo Beatty Work Phone: Start: 03-10-2023 Radiologic examinati on of knee Dr. Renzo Beatty Work Phone: Start: 01-28-2023 Radiologic examinati on of knee Dr. Renzo Beatty Work Phone: Start: 01-28-2023 Total Knee Replaceme nt Robotic Arm John (Left) Dr. Renzo Beatty Work Phone: Start: 01-15-2023 Nasal Screen MRSA/MSSA Dr. Renzo Beatty Work Phone: Start: 12-04-2022 MRI of lower extremity Dr. Renzo Beatty Work Phone: Start: 10-21-2022 MRI of lumbar spine Dr. Renzo Beatty Work Phone: Start: 10-02-2022 X-ray of lumbar spin e, two or three views Dr. Renzo Beatty Work Phone: Start: 09-06-2022 Radiologic examinati on of knee Dr. Renzo Beatty Work Phone: Start: 08-05-2022 Radiologic examinati on of knee Dr. Renzo Beatty Work Phone: Start: 08-05-2022 Total Knee Replaceme nt Robotic Arm John (Right) Dr. Renzo Beatty Work Phone: Start: 07-31-2022 Nasal Screen MRSA/MSSA Dr. Renzo Beatty Work Phone: Start: 06-20-2022 MRI of lower extremity Dr. Renzo Beatty Work Phone: Start: 05-30-2022 End: 05-30-2022 Radiologic examination of knee Dr. Renzo Beatty Work Phone: Start: 09-02-2017 CONVERTED SURGICAL PATHOLOGY Cyril Combs Work Phone: Start: 08-26-2017 Antibody screen [facility] COMBS Comment on above: Performed By: #### T &S ####[place] [id number] Start: 04-14-2017 CONVERTED SURGICAL PATHOLOGY Cyril Nolascogle Work Phone: Start: 08-16-2016 End: 08-16-2016 Documentation of current medications Kayleigh Tian Start: 04-23-2016 End: 05-29-2016 Mri jnt of lwr extre w/o dye Maru Alvares Work Phone: Start: 02-22-2016 End: 03-05-2016 *BFRW - Body Fluid RBC, WBC & DIFF Maru Alvares Work Phone: Start: 02-22-2016 End: 03-05-2016 Bacteria identified in Body fluid by Culture Maru Alvares Work Phone: Start: 02-22-2016 End: 03-05-2016 Crystals [type] in Body fluid by Light microscopy Maru Alvares Work Phone: Start: 02-22-2016 End: 03-05-2016 Glucose Maru Alvares Work Phone: Start: 02-22-2016 End: 03-05-2016 Glucose [Mass/volume] in Body fluid Maru Alvares Work Phone: Start: 02-22-2016 End: 03-05-2016 Protein in fluid Maru Alvares Work Phone: Start: 08-14-2015 End: 08-31-2015 Alanine aminotransferase (ALT) Renzo Beatty DO [employer] Phone: Start: 08-14-2015 End: 08-31-2015 Aspartate aminotransferase (AST) Renzo Beatty DO [employer] Phone: Start: 08-14-2015 End: 08-31-2015 HbA1c Renzo Beatty DO [employer] Phone: Start: 08-14-2015 End: 08-31-2015 Lipid panel [AGGREGATE] Renzo Beatty DO [employer] Phone: Start: 04-11-2015 End: 04-17-2015 *CMP Complete Metabolic Panel Renzo Beatty [employer] Phone: Start: 04-11-2015 End: 04-17-2015 *Microalbumin, Creatine Ratio, rand urine Renzo Beatty DO [employer] Phone: Start: 04-11-2015 End: 04-17-2015 HbA1c Renzo Beatty DO [employer] Phone: Start: 04-11-2015 End: 04-17-2015 Lipid panel [AGGREGATE] Renzo Beatty DO [employer] Phone: Start: 03-30-2015 End: 03-30-2015 Urinalysis Kayleigh Tian Anaerobic microbial culture Dr. Renzo Beatty Work Phone: H/O: artificial joint History of bilateral knee arthroplasty Dr. Renzo Beatty DO Work Phone: H/O: surgery History of gastr ic restrictive surgery Dr. Renzo Beatty Work Phone: History of operative procedure on knee History of arthroscopic knee surgery Dr. Renzo Beatty Work Phone: History of tonsillectomy History of tonsillectomy Dr. Renzo Beatty Work Phone: Investigation of transfusion reaction Dr. Renzo Beatty Work Phone: Microbial culture, routine D marisol Beatty Work Phone: Nasal Screen MRSA/MSSA Dr. Salty Beatty Work Phone: Plan of Treatment Date Care Activity Detail Author Start: 09-21-2024 X-ray of lumbar spine, two or three views Lumbar Spine 2 or 3 Views [facility] Start: 07-06-2024 Patient referral [facility] Work Phone: Start: 06-22-2024 Patient discharge [facility] Start: 06-22-2024 Catheterization of vein [facility] Start: 06-21-2024 Following clinical pathway protocol [facility] Start: 06-21-2024 Application of device [facility] Start: 06-21-2024 Consultation [facility] Start: 06-21-2024 Assessment of risk of venous thromboembolism [facility] Start: 06-21-2024 Following clinical pathway protocol [facility] Start: 06-21-2024 Incentive spirometry [facility] Start: 06-21-2024 Introduction of urinary catheter [facility] Start: 06-21-2024 Measuring intake and output [facility] Start: 06-21-2024 Neurovascular assessment [facility] Start: 06-21-2024 Oxygen therapy [facility] Start: 06-21-2024 Patient education [facility] Start: 06-21-2024 Provision of activity privileges [facility] Start: 06-21-2024 Referral to occupational therapist [facility] Start: 06-21-2024 Taking patient vital signs [facility] Start: 06-21-2024 End: 06-21-2024 [facility] Start: 06-21-2024 Admission procedure [facility] Start: 06-21-2024 Referral to service [facility] Start: 04-19-2024 Patient referral [facility] Work Phone: Start: 04-07-2024 Anes arthrs humeral h/n strnclav & shoulder nos ANESTH SURGERY OF SHOULDER [facility] Start: 04-07-2024 Arthroscopy shoulder surg debridement limited RASHARD ARTHRS SRG LMTD DBRDMT [facility] Start: 04-07-2024 Arthroscopy shoulder w/coracoacrm ligmnt release RASHARD ARTHRS SRG DECOMPRESSION [facility] Start: 04-07-2024 Injection aa&/strd other peripheral nerve/branch NJX AA&/STRD OTHER PN/BRANCH [facility] Start: 04-07-2024 Patient discharge [facility] Start: 04-07-2024 Application of device [facility] Start: 04-07-2024 Assessment of risk of venous thromboembolism [facility] Start: 04-07-2024 Catheterization of vein [facility] Start: 04-07-2024 Deep breathing and coughing exercises [facility] Start: 04-07-2024 Following clinical pathway protocol [facility] Start: 04-07-2024 Incentive spirometry [facility] Start: 04-07-2024 Introduction of urinary catheter [facility] Start: 04-07-2024 Patient education [facility] Start: 04-07-2024 Taking patient vital signs [facility] Start: 04-07-2024 Vital signs measurements [facility] Start: 04-07-2024 End: 04-07-2024 [facility] Start: 04-07-2024 Medication education [facility] Start: 08-23-2023 X-ray of both feet Foot min 3 Views [facility] Start: 08-23-2023 XR Foot GE 3 Views [facility] Start: 07-11-2023 Patient referral [facility] Work Phone: Start: 05-26-2023 [facility] Start: 03-11-2023 Application of ice collar, cap or bag [facility] Start: 03-11-2023 Catheterization of vein [facility] Start: 03-11-2023 Elevation of affected extremity [facility] Start: 03-11-2023 Following clinical pathway protocol [facility] [facility] Start: 03-11-2023 Patient discharge [facility] Start: 03-11-2023 Procedure discontinued [facility] Start: 03-11-2023 Taking patient vital signs [facility] Start: 03-11-2023 Vital signs measurements [facility] Start: 03-11-2023 [facility] Start: 03-11-2023 Anesthesia closed procedures knee joint ANESTH KNEE JOINT PROCEDURE [facility] Start: 03-11-2023 Arthrocentesis aspir&/inj major jt/bursa w/o us DRAIN/INJ JOINT/BURSA W/O US [facility] Start: 03-11-2023 Manipulation knee joint under general anesthesia FIXATION OF KNEE JOINT [facility] Start: 03-11-2023 Medication education [facility] Start: 01-31-2023 Patient discharge [facility] Start: 01-28-2023 End: 01-29-2023 [facility] Start: 01-28-2023 Following clinical pathway protocol [facility] Start: 01-28-2023 Provision of overbed trapeze [facility] Start: 01-28-2023 Admission procedure [facility] Start: 01-28-[address] [facility] Start: 01-28-2023 Application of device [facility] Start: 01-28-2023 Application of elastic bandage [facility] Start: 01-28-2023 Assessment of risk of venous thromboembolism [facility] Start: 01-28-2023 Catheterization of vein [facility] Start: 01-28-2023 Exercises [facility] Start: 01-28-2023 Following clinical pathway protocol [facility] Start: 01-28-2023 Introduction of urinary catheter [facility] Start: 01-28-2023 Measuring intake and output [facility] Start: 01-28-2023 Neurovascular assessment [facility] Start: 01-28-2023 Patient education [facility] Start: 01-28-2023 Procedure discontinued [facility] Start: 01-28-2023 Provision of activity privileges [facility] Start: 01-28-2023 Recommendation to continue with treatment [facility] Start: 01-28-2023 Referral to occupational therapist [facility] Start: 01-28-2023 Referral to service [facility] Start: 01-28-2023 Vital signs measurements [facility] Start: 01-28-2023 Wound care [facility] Start: 09-17-2022 Application of ice collar, cap or bag [facility] Start: 09-17-2022 Catheterization of vein [facility] Start: 09-17-2022 Elevation of affected extremity [facility] Start: 09-17-2022 Following clinical pathway protocol [facility] Start: 09-17-2022 Patient discharge [facility] Start: 09-17-2022 Procedure discontinued [facility] Start: 09-17-2022 Taking patient vital signs [facility] Start: 09-17-2022 Vital signs measurements [facility] Start: 09-17-2022 [facility] Start: 09-17-2022 Anesthesia closed procedures knee joint ANESTH KNEE JOINT PROCEDURE [facility] Start: 09-17-2022 Arthrocentesis aspir&/inj major jt/bursa w/o us DRAIN/INJ JOINT/BURSA W/O US [facility] Start: 09-17-2022 Manipulation knee joint under general anesthesia FIXATION OF KNEE JOINT [facility] Start: 09-17-2022 Medication education [facility] Start: 08-08-2022 Patient discharge [facility] Start: 08-07-2022 [facility] Start: 08-06-2022 Application of intermittent pneumatic compression device [facility] Start: 08-05-2022 Following clinical pathway protocol [facility] Start: 08-05-2022 Provision of overbed trapeze [facility] Start: 08-05-2022 Admission procedure [facility] Start: 08-05-2022 Recommendation to continue with treatment [facility] Start: 08-05-[address] [facility] Start: 08-05-2022 Application of device [facility] Start: 08-05-2022 Application of elastic bandage [facility] Start: 08-05-2022 Assessment of risk of venous thromboembolism [facility] Start: 08-05-2022 Catheterization of vein [facility] Start: 08-05-2022 Exercises [facility] Start: 08-05-2022 Following clinical pathway protocol [facility] Start: 08-05-2022 Introduction of urinary catheter [facility] Start: 08-05-2022 Measuring intake and output [facility] Start: 08-05-2022 Neurovascular assessment [facility] Start: 08-05-2022 Patient education [facility] Start: 08-05-2022 Procedure discontinued [facility] Start: 08-05-2022 Provision of activity privileges [facility] Start: 08-05-2022 Referral to occupational therapist [facility] Start: 08-05-2022 Referral to service [facility] Start: 08-05-2022 Vital signs measurements [facility] Start: 08-05-2022 Wound care [facility] Start: 08-05-2022 [facility] Start: 08-05-2022 [facility] Start: 12-28-2019 Influenza vaccination INFLUENZA (#1) [facility] Start: 2018 SHINGRIX VACCINE (1 of 2) SHINGRIX VACCINE (1 of 2) [facility] Start: 2018 Tuberculosis screening COLORECTAL CANCER SCREENING,SEE MODIFIER [facility] Start: 01-09-2017 End: 01-09-[address] [facility] Work Phone: Start: 11-18-2016 End: 11-18-[address] [facility] Work Phone: Start: 08-16-2016 End: 08-20-2016 Extremity study Venous Doppler LE Right [facility] Work Phone: Start: 08-16-2016 End: 08-16-2016 Us xtr non-vasc lmtd US Extremity, nonvascular; limited, anatomic specific [facility] Work Phone: Start: 07-10-2016 End: 07-10-2016 Physical Therapy General Physical Therapy [facility], [address] [place] [address], [id number] [facility] [...] (Body fld) *GLUBF - Glucose, Body Fluid [facility], [facility] Work Phone: Start: 02-22-2016 End: 03-05-2016 Protein in fluid *PROBF - Protein, Body Fluid [facility] Work Phone: Start: 11-23-2015 End: 12-05-2015 Podiatry Referral Podiatry Referral Ghulam Mendez, [address] [facility], [address], [place], [address] [facility] Work Phone: Start: 10-18-2015 End: 10-18-2015 Electrocardiogram, complete EKG (In office) [facility] Work Phone: Start: 08-31-2015 End: 09-01-2015 Orthopedic Referral Orthopedic Referral Maru Alvares, [facility], [address] [place] [address] [address], [place], [address] [facility] [...] End: 08-31-2015 Lipid panel [AGGREGATE] *Lipid Profile [facility] Work Phone: Start: 08-09-2015 End: 08-11-2015 Other Referral Other Referral [facility], [address] [place] [address], [address] [facility] [...] End: 04-17-2015 Lipid panel [AGGREGATE] *Lipid Profile [facility] Work Phone: Start: 03-30-2015 End: 03-30-2015 Contrst x-ray, urinary tract X-Ray, KUB [facility] Work Phone: Start: 03-30-2015 End: 03-30-2015 Urinalysis nonauto w/o scope UA Dipstick (Office) [facility] Work Phone: Start: 03-22-2015 End: 03-30-2015 Neurology Referral Neurology Referral Dawson Penny, [address], [place], [address] [facility] [...] profile DTAP,TDAP,TD (1 - Tdap) [facility] Start: 1986 ANNUAL PCP TEAM CHRONIC DISEASE VISIT ANNUAL PCP TEAM CHRONIC DISEASE VISIT [facility] Start: 1986 Hepatitis B surface antibody level LDL CHOLESTEROL [facility] Start: 1986 HEPATITIS C SCREENING HEPATITIS C SCREENING [facility] Start: 1986 HIV SCREENING HIV SCREENING [facility] Start: 1984 ONE PNEUMOVAX PRIOR TO AGE 63 ONE PNEUMOVAX PRIOR TO AGE 63 [facility] Start: 1978 [object Object] DIABETIC FOOT EXAM [facility] Start: 1978 Hepatitis B screening URINE ALBUMIN:CREATININE RATIO [facility] Start: 1978 Hepatitis C antibody, confirmatory test DILATED RETINAL EXAM [facility] Start: 1973 HbA1c (Bld) [Mass fraction] HBA1C [facility] inic Electrocardiographic procedure [facility] Patient Education [facility] Work Phone: Patient referral [facility] Work Phone: Immunizations Immunization Date Immunization Notes Care Provider Fa ciliiza 02-07-2019 tetanus toxoid, redu golden diphtheria toxoid, and acellular pertussis vaccine, adsorbed Dr. Renzo Beatty Work Phone: [facility] 07-29-2018 tetanus toxoid, redu golden diphtheria toxoid, and acellular pertussis vaccine, adsorbed Dr. Renzo Beatty Work Phone: [facility] Payers Date Payer Category Payer Medicare [id number] 2024 Self-pay [id number] 2023 Unknown [id number] 2016 Unknown MMO MMO MHS [id number] 2016-Present Indemnity [id number]. [id number] 2016 Unknown [id number] 2009 Unknown [id number] 1968 Unknown [id number] 2.840.1.237810.3.579.2.278 1968 Unknown [id number] 2.840.1.761368.3.579.2.278 1968 Unknown [id number] 2.840.1.688866.3.579.2.278 1968 Unknown [id number] 2.16840.1.715894.3.579.2.278 1968 Unknown [id number] 2.16840.1.030437.3.579.2.278 1968 Unknown [id number] 2.16840.1.081198.3.579.2.278 1968 Unknown [id number] 2.16840.1.409705.3.579.2.278 1968 Unknown [id number] 2.16.840.1.457012.3.579.2.278 1968 Unknown [id number] 2.16.840.1.450718.3.579.2.278 1968 Unknown [id number] 2.16.840.1.235610.3.579.2.278 1968 Unknown [id number] 2.16.840.1.074194.3.579.2.278 1968 Unknown [id number] 2.16.840.1.917103.3.579.2.278 1968 Unknown [id number] 2.16.840.1.583946.3.579.2.278 1968 Unknown [id number] 2.16.840.1.285471.3.579.2.278 1968 Unknown [id number] 2.16.840.1.798385.3.579.2.278 1968 Unknown [id number] 2.16.840.1.074568.3.579.2.278 1968 Unknown [id number] 2.16.840.1.626389.3.579.2.278 1968 Unknown [id number] 2.16.840.1.477393.3.579.2.278 1968 Unknown [id number] 2.16.840.1.563178.3.579.2.278 1968 Unknown [id number] 2.16.840.1.595014.3.579.2.278 1968 Unknown [id number] 2.16.840.1.537778.3.579.2.278 1968 Unknown [id number] 2.16.840.1.735799.3.579.2.278 Medicare MEDICARE A ONLY [id number] Unknown [facility] [id number] Unknown [id number] 2.16.840.1.239649.3.579.2.462 Unknown [id number] 2.16.840.1.707466.3.579.2.462 Unknown [id number] 2.16.840.1.110171.3.579.2.462 Unknown [id number] 2.16.840.1.431993.3.579.2.462 Unknown [id number] 2.16.840.1.733492.3.579.2.462 Unknown [id number] 2.16.840.1.954447.3.579.2.462 Unknown [id number] 2.16.840.1.984510.3.579.2.462 Unknown [id number] 2.16.840.1.345019.3.579.2.462 Unknown [id number] 2.16.840.1.544235.3.579.2.462 Unknown [id number] 2.16.840.1.856703.3.579.2.462 Unknown [id number] 2.16.840.1.710217.3.579.2.462 Unknown [id number] 2.16.840.1.711468.3.579.2.462 Unknown [id number] 2.16.840.1.793181.3.579.2.462 Unknown [id number] 2.16.840.1.559194.3.579.2.462 Unknown [id number] 2.16.840.1.091762.3.579.2.462 Unknown [id number] 2.16.840.1.127751.3.579.2.462 Unknown [id number] 2.16.840.1.667627.3.579.2.462 Unknown [id number] 2.16.840.1.560160.3.579.2.462 Unknown [id number] 2.16.840.1.684807.3.579.2.462 Unknown [id number] 2.16.840.1.252951.3.579.2.462 Unknown [id number] 2.16.840.1.204976.3.579.2.462 Unknown [id number] 2.16.840.1.314059.3.579.2.462 Unknown [id number] 2.16.840.1.231165.3.579.2.462 Unknown [id number] 2.16840.1.247388.3.579.2.462 Unknown [id number] 2.16.840.1.884008.3.579.2.462 Unknown [id number] 2.16840.1.554458.3.579.2.462 Unknown [id number] 2.16840.1.884496.3.579.2.462 Unknown [id number] 2.16840.1.391451.3.579.2.462 Unknown [id number] 2.16840.1.086489.3.579.2.462 Unknown [id number] 2.16840.1.059010.3.579.2.462 Unknown [id number] 2.16840.1.156171.3.579.2.462 Unknown [id number] 2.840.1.245037.3.579.2.462 Social History Date Type Detail Facility Start: 04-14-2017 End: 09-02-2017 Tobacco smoking status ARIS Never smoker [facility] Start: 09-02-2017 Tobacco use and exposure Never used [facility] Start: 04-14-2017 End: 09-02-2017 Alcohol intake Current non-drinker of alcohol (finding) [facility] Start: 1970 Sex Assigned At Male [facility] Start: 01-22-2022 End: 08-23-2023 Tobacco smoking status ARIS Unknown if ever smoked [facility] Start: 07-29-2018 Spouse/ Signif icant Other [facility] Start: 06-04-2024 Tobacco smoking status NHIS Current some day smoker [facility] Start: 07-16-2024 End: 08-09-2024 Sex Male (finding) [facility] Medical Equipment Procedure Code Equipment Code Equipment Origin al Text Equipment Identifier Dates Fusion, spine, lumbar, 360 degree, starting in supine position transitioning to prone [id number] Carmi LS Cage FDA Start: 06-21-2024 Fusion, spine, lumbar, 360 degree, starting in supine position transitioning to prone Set Screws FDA Start: 06-21-2024 Fusion, spine, lumbar, 360 degree, starting in supine position transitioning to prone Set Screws FDA Start: 06-21-2024 Fusion, spine, lumbar, 360 degree, starting in supine position transitioning to prone Set Screws FDA Start: 06-21-2024 Fusion, spine, lumbar, 360 degree, starting in supine position transitioning to prone Set Screws FDA Start: 06-21-2024 Fusion, spine, lumbar, 360 degree, starting in supine position transitioning to prone Set Screws FDA Start: 06-21-2024 Fusion, spine, lumbar, 360 degree, starting in supine position transitioning to prone Viper Prime Rods FDA Start: 06-21-2024 Fusion, spine, lumbar, 360 degree, starting in supine position transitioning to prone Viper Prime Rods FDA Start: 06-21-2024 Fusion, spine, lumbar, 360 degree, starting in supine position transitioning to prone Viper Prime Screws 7x50 FDA Start: 06-21-2024 Fusion, spine, lumbar, 360 degree, starting in supine position transitioning to prone Viper Prime Screws 7x50 FDA Start: 06-21-2024 Fusion, spine, lumbar, 360 degree, starting in supine position transitioning to prone Viper Prime Screws 7x50 FDA Start: 06-21-2024 Fusion, spine, lumbar, 360 degree, starting in supine position transitioning to prone BONE,30CC CRUSH CANC FDA Start: 06-21-2024 Fusion, spine, lumbar, 360 degree, starting in supine position transitioning to prone Viper Prime Screws 7x50 FDA Start: 06-21-2024 Fusion, spine, lumbar, 360 degree, starting in supine position transitioning to prone viper prime screws 7x45mm FDA Start: 06-21-2024 Fusion, spine, lumbar, 360 degree, starting in supine position transitioning to prone viper prime screws 7x45mm FDA Start: 06-21-2024 Fusion, spine, lumbar, 360 degree, starting in supine position transitioning to prone washer FDA Start: 06-21-2024 Fusion, spine, lumbar, 360 degree, starting in supine position transitioning to prone washer FDA Start: 06-21-2024 Fusion, spine, lumbar, 360 degree, starting in supine position transitioning to prone Collagen haemostatic agent, non-antimicrobial ()[id number] FDA Start: 06-21-2024 Fusion, spine, lumbar, 360 degree, starting in supine position transitioning to prone BONE,60CC CRUSH CANC FDA Start: 06-21-2024 Fusion, spine, lumbar, 360 degree, starting in supine position transitioning to prone Bowtie Screw FDA Start: 06-21-2024 Fusion, spine, lumbar, 360 degree, starting in supine position transitioning to prone Bowtie Screw FDA Start: 06-21-2024 Fusion, spine, lumbar, 360 degree, starting in supine position transitioning to prone Carmi LS Cage FDA Start: 06-21-2024 Fusion, spine, lumbar, 360 degree, starting in supine position transitioning to prone Carmi LS Cage FDA Start: 06-21-2024 Fusion, spine, lumbar, 360 degree, starting in supine position transitioning to prone DRESSING,SURGICEL 4x8 FDA Start: 06-21-2024 Fusion, spine, lumbar, 360 degree, starting in supine position transitioning to prone Set Screws FDA Start: 06-21-2024 Fusion, spine, lumbar, 360 degree, starting in supine position transitioning to prone [id number] Carmi LS Cage FDA Start: 06-21-2024 Fusion, spine, lumbar, 360 degree, starting in supine position transitioning to prone Set Screws FDA Start: 06-21-2024 Fusion, spine, lumbar, 360 degree, starting in supine position transitioning to prone Set Screws FDA Start: 06-21-2024 Fusion, spine, lumbar, 360 degree, starting in supine position transitioning to prone Set Screws FDA Start: 06-21-2024 Fusion, spine, lumbar, 360 degree, starting in supine position transitioning to prone Set Screws FDA Start: 06-21-2024 Fusion, spine, lumbar, 360 degree, starting in supine position transitioning to prone Set Screws FDA Start: 06-21-2024 Fusion, spine, lumbar, 360 degree, starting in supine position transitioning to prone Viper Prime Rods FDA Start: 06-21-2024 Fusion, spine, lumbar, 360 degree, starting in supine position transitioning to prone Viper Prime Rods FDA Start: 06-21-2024 Fusion, spine, lumbar, 360 degree, starting in supine position transitioning to prone Viper Prime Screws 7x50 FDA Start: 06-21-2024 Fusion, spine, lumbar, 360 degree, starting in supine position transitioning to prone Viper Prime Screws 7x50 FDA Start: 06-21-2024 Fusion, spine, lumbar, 360 degree, starting in supine position transitioning to prone Viper Prime Screws 7x50 FDA Start: 06-21-2024 Fusion, spine, lumbar, 360 degree, starting in supine position transitioning to prone BONE,30CC CRUSH CANC FDA Start: 06-21-2024 Fusion, spine, lumbar, 360 degree, starting in supine position transitioning to prone Viper Prime Screws 7x50 FDA Start: 06-21-2024 Fusion, spine, lumbar, 360 degree, starting in supine position transitioning to prone viper prime screws 7x45mm FDA Start: 06-21-2024 Fusion, spine, lumbar, 360 degree, starting in supine position transitioning to prone viper prime screws 7x45mm FDA Start: 06-21-2024 Fusion, spine, lumbar, 360 degree, starting in supine position transitioning to prone washer FDA Start: 06-21-2024 Fusion, spine, lumbar, 360 degree, starting in supine position transitioning to prone washer FDA Start: 06-21-2024 Fusion, spine, lumbar, 360 degree, starting in supine position transitioning to prone BONE,60CC CRUSH CANC FDA Start: 06-21-2024 Fusion, spine, lumbar, 360 degree, starting in supine position transitioning to prone Bowtie Screw FDA Start: 06-21-2024 Fusion, spine, lumbar, 360 degree, starting in supine position transitioning to prone Bowtie Screw FDA Start: 06-21-2024 Fusion, spine, lumbar, 360 degree, starting in supine position transitioning to prone Carmi LS Cage FDA Start: 06-21-2024 Fusion, spine, lumbar, 360 degree, starting in supine position transitioning to prone Carmi LS Cage FDA Start: 06-21-2024 Fusion, spine, lumbar, 360 degree, starting in supine position transitioning to prone DRESSING,SURGICEL 4x8 FDA Start: 06-21-2024 Fusion, spine, lumbar, 360 degree, starting in supine position transitioning to prone Set Screws FDA Start: 06-21-2024 Fusion, spine, lumbar, 360 degree, starting in supine position transitioning to prone [id number] Carmi LS Cage FDA Start: 06-21-2024 Fusion, spine, lumbar, 360 degree, starting in supine position transitioning to prone Set Screws FDA Start: 06-21-2024 Fusion, spine, lumbar, 360 degree, starting in supine position transitioning to prone Set Screws FDA Start: 06-21-2024 Fusion, spine, lumbar, 360 degree, starting in supine position transitioning to prone Set Screws FDA Start: 06-21-2024 Fusion, spine, lumbar, 360 degree, starting in supine position transitioning to prone Set Screws FDA Start: 06-21-2024 Fusion, spine, lumbar, 360 degree, starting in supine position transitioning to prone Set Screws FDA Start: 06-21-2024 Fusion, spine, lumbar, 360 degree, starting in supine position transitioning to prone Viper Prime Rods FDA Start: 06-21-2024 Fusion, spine, lumbar, 360 degree, starting in supine position transitioning to prone Viper Prime Rods FDA Start: 06-21-2024 Fusion, spine, lumbar, 360 degree, starting in supine position transitioning to prone Viper Prime Screws 7x50 FDA Start: 06-21-2024 Fusion, spine, lumbar, 360 degree, starting in supine position transitioning to prone Viper Prime Screws 7x50 FDA Start: 06-21-2024 Fusion, spine, lumbar, 360 degree, starting in supine position transitioning to prone Viper Prime Screws 7x50 FDA Start: 06-21-2024 Fusion, spine, lumbar, 360 degree, starting in supine position transitioning to prone BONE,30CC CRUSH CANC FDA Start: 06-21-2024 Fusion, spine, lumbar, 360 degree, starting in supine position transitioning to prone Viper Prime Screws 7x50 FDA Start: 06-21-2024 Fusion, spine, lumbar, 360 degree, starting in supine position transitioning to prone viper prime screws 7x45mm FDA Start: 06-21-2024 Fusion, spine, lumbar, 360 degree, starting in supine position transitioning to prone viper prime screws 7x45mm FDA Start: 06-21-2024 Fusion, spine, lumbar, 360 degree, starting in supine position transitioning to prone washer FDA Start: 06-21-2024 Fusion, spine, lumbar, 360 degree, starting in supine position transitioning to prone washer FDA Start: 06-21-2024 Fusion, spine, lumbar, 360 degree, starting in supine position transitioning to prone BONE,60CC CRUSH CANC FDA Start: 06-21-2024 Fusion, spine, lumbar, 360 degree, starting in supine position transitioning to prone Bowtie Screw FDA Start: 06-21-2024 Fusion, spine, lumbar, 360 degree, starting in supine position transitioning to prone Bowtie Screw FDA Start: 06-21-2024 Fusion, spine, lumbar, 360 degree, starting in supine position transitioning to prone Carmi LS Cage FDA Start: 06-21-2024 Fusion, spine, lumbar, 360 degree, starting in supine position transitioning to prone Carmi LS Cage FDA Start: 06-21-2024 Fusion, spine, lumbar, 360 degree, starting in supine position transitioning to prone DRESSING,SURGICEL 4x8 FDA Start: 06-21-2024 Fusion, spine, lumbar, 360 degree, starting in supine position transitioning to prone Set Screws FDA Start: 06-21-2024 Fusion, spine, lumbar, 360 degree, starting in supine position transitioning to prone [id number] Carmi LS Cage FDA Start: 06-21-2024 Fusion, spine, lumbar, 360 degree, starting in supine position transitioning to prone Set Screws FDA Start: 06-21-2024 Fusion, spine, lumbar, 360 degree, starting in supine position transitioning to prone Set Screws FDA Start: 06-21-2024 Fusion, spine, lumbar, 360 degree, starting in supine position transitioning to prone Set Screws FDA Start: 06-21-2024 Fusion, spine, lumbar, 360 degree, starting in supine position transitioning to prone Set Screws FDA Start: 06-21-2024 Fusion, spine, lumbar, 360 degree, starting in supine position transitioning to prone Set Screws FDA Start: 06-21-2024 Fusion, spine, lumbar, 360 degree, starting in supine position transitioning to prone Viper Prime Rods FDA Start: 06-21-2024 Fusion, spine, lumbar, 360 degree, starting in supine position transitioning to prone Viper Prime Rods FDA Start: 06-21-2024 Fusion, spine, lumbar, 360 degree, starting in supine position transitioning to prone Viper Prime Screws 7x50 FDA Start: 06-21-2024 Fusion, spine, lumbar, 360 degree, starting in supine position transitioning to prone Viper Prime Screws 7x50 FDA Start: 06-21-2024 Fusion, spine, lumbar, 360 degree, starting in supine position transitioning to prone Viper Prime Screws 7x50 FDA Start: 06-21-2024 Fusion, spine, lumbar, 360 degree, starting in supine position transitioning to prone BONE,30CC CRUSH CANC FDA Start: 06-21-2024 Fusion, spine, lumbar, 360 degree, starting in supine position transitioning to prone Viper Prime Screws 7x50 FDA Start: 06-21-2024 Fusion, spine, lumbar, 360 degree, starting in supine position transitioning to prone viper prime screws 7x45mm FDA Start: 06-21-2024 Fusion, spine, lumbar, 360 degree, starting in supine position transitioning to prone viper prime screws 7x45mm FDA Start: 06-21-2024 Fusion, spine, lumbar, 360 degree, starting in supine position transitioning to prone washer FDA Start: 06-21-2024 Fusion, spine, lumbar, 360 degree, starting in supine position transitioning to prone washer FDA Start: 06-21-2024 Fusion, spine, lumbar, 360 degree, starting in supine position transitioning to prone BONE,60CC CRUSH CANC FDA Start: 06-21-2024 Fusion, spine, lumbar, 360 degree, starting in supine position transitioning to prone Bowtie Screw FDA Start: 06-21-2024 Fusion, spine, lumbar, 360 degree, starting in supine position transitioning to prone Bowtie Screw FDA Start: 06-21-2024 Fusion, spine, lumbar, 360 degree, starting in supine position transitioning to prone Carmi LS Cage FDA Start: 06-21-2024 Fusion, spine, lumbar, 360 degree, starting in supine position transitioning to prone Carmi LS Cage FDA Start: 06-21-2024 Fusion, spine, lumbar, 360 degree, starting in supine position transitioning to prone DRESSING,SURGICEL 4x8 FDA Start: 06-21-2024 Fusion, spine, lumbar, 360 degree, starting in supine position transitioning to prone Set Screws FDA Start: 06-21-2024 Fusion, spine, lumbar, 360 degree, starting in supine position transitioning to prone [id number] Carmi LS Cage FDA Start: 06-21-2024 Fusion, spine, lumbar, 360 degree, starting in supine position transitioning to prone Set Screws FDA Start: 06-21-2024 Fusion, spine, lumbar, 360 degree, starting in supine position transitioning to prone Set Screws FDA Start: 06-21-2024 Fusion, spine, lumbar, 360 degree, starting in supine position transitioning to prone Set Screws FDA Start: 06-21-2024 Fusion, spine, lumbar, 360 degree, starting in supine position transitioning to prone Set Screws FDA Start: 06-21-2024 Fusion, spine, lumbar, 360 degree, starting in supine position transitioning to prone Set Screws FDA Start: 06-21-2024 Fusion, spine, lumbar, 360 degree, starting in supine position transitioning to prone Viper Prime Rods FDA Start: 06-21-2024 Fusion, spine, lumbar, 360 degree, starting in supine position transitioning to prone Viper Prime Rods FDA Start: 06-21-2024 Fusion, spine, lumbar, 360 degree, starting in supine position transitioning to prone Viper Prime Screws 7x50 FDA Start: 06-21-2024 Fusion, spine, lumbar, 360 degree, starting in supine position transitioning to prone Viper Prime Screws 7x50 FDA Start: 06-21-2024 Fusion, spine, lumbar, 360 degree, starting in supine position transitioning to prone Viper Prime Screws 7x50 FDA Start: 06-21-2024 Fusion, spine, lumbar, 360 degree, starting in supine position transitioning to prone BONE,30CC CRUSH CANC FDA Start: 06-21-2024 Fusion, spine, lumbar, 360 degree, starting in supine position transitioning to prone Viper Prime Screws 7x50 FDA Start: 06-21-2024 Fusion, spine, lumbar, 360 degree, starting in supine position transitioning to prone viper prime screws 7x45mm FDA Start: 06-21-2024 Fusion, spine, lumbar, 360 degree, starting in supine position transitioning to prone viper prime screws 7x45mm FDA Start: 06-21-2024 Fusion, spine, lumbar, 360 degree, starting in supine position transitioning to prone washer FDA Start: 06-21-2024 Fusion, spine, lumbar, 360 degree, starting in supine position transitioning to prone washer FDA Start: 06-21-2024 Fusion, spine, lumbar, 360 degree, starting in supine position transitioning to prone BONE,60CC CRUSH CANC FDA Start: 06-21-2024 Fusion, spine, lumbar, 360 degree, starting in supine position transitioning to prone Bowtie Screw FDA Start: 06-21-2024 Fusion, spine, lumbar, 360 degree, starting in supine position transitioning to prone Bowtie Screw FDA Start: 06-21-2024 Fusion, spine, lumbar, 360 degree, starting in supine position transitioning to prone Carmi LS Cage FDA Start: 06-21-2024 Fusion, spine, lumbar, 360 degree, starting in supine position transitioning to prone Carmi LS Cage FDA Start: 06-21-2024 Fusion, spine, lumbar, 360 degree, starting in supine position transitioning to prone DRESSING,SURGICEL 4x8 FDA Start: 06-21-2024 Fusion, spine, lumbar, 360 degree, starting in supine position transitioning to prone Set Screws FDA Start: 06-21-2024 Fusion, spine, lumbar, 360 degree, starting in supine position transitioning to prone [id number] Carmi LS Cage FDA Start: 06-21-2024 Fusion, spine, lumbar, 360 degree, starting in supine position transitioning to prone Set Screws FDA Start: 06-21-2024 Fusion, spine, lumbar, 360 degree, starting in supine position transitioning to prone Set Screws FDA Start: 06-21-2024 Fusion, spine, lumbar, 360 degree, starting in supine position transitioning to prone Set Screws FDA Start: 06-21-2024 Fusion, spine, lumbar, 360 degree, starting in supine position transitioning to prone Set Screws FDA Start: 06-21-2024 Fusion, spine, lumbar, 360 degree, starting in supine position transitioning to prone Set Screws FDA Start: 06-21-2024 Fusion, spine, lumbar, 360 degree, starting in supine position transitioning to prone Viper Prime Rods FDA Start: 06-21-2024 Fusion, spine, lumbar, 360 degree, starting in supine position transitioning to prone Viper Prime Rods FDA Start: 06-21-2024 Fusion, spine, lumbar, 360 degree, starting in supine position transitioning to prone Viper Prime Screws 7x50 FDA Start: 06-21-2024 Fusion, spine, lumbar, 360 degree, starting in supine position transitioning to prone Viper Prime Screws 7x50 FDA Start: 06-21-2024 Fusion, spine, lumbar, 360 degree, starting in supine position transitioning to prone Viper Prime Screws 7x50 FDA Start: 06-21-2024 Fusion, spine, lumbar, 360 degree, starting in supine position transitioning to prone BONE,30CC CRUSH CANC FDA Start: 06-21-2024 Fusion, spine, lumbar, 360 degree, starting in supine position transitioning to prone Viper Prime Screws 7x50 FDA Start: 06-21-2024 Fusion, spine, lumbar, 360 degree, starting in supine position transitioning to prone viper prime screws 7x45mm FDA Start: 06-21-2024 Fusion, spine, lumbar, 360 degree, starting in supine position transitioning to prone viper prime screws 7x45mm FDA Start: 06-21-2024 Fusion, spine, lumbar, 360 degree, starting in supine position transitioning to prone washer FDA Start: 06-21-2024 Fusion, spine, lumbar, 360 degree, starting in supine position transitioning to prone washer FDA Start: 06-21-2024 Fusion, spine, lumbar, 360 degree, starting in supine position transitioning to prone BONE,60CC CRUSH CANC FDA Start: 06-21-2024 Fusion, spine, lumbar, 360 degree, starting in supine position transitioning to prone Bowtie Screw FDA Start: 06-21-2024 Fusion, spine, lumbar, 360 degree, starting in supine position transitioning to prone Bowtie Screw FDA Start: 06-21-2024 Fusion, spine, lumbar, 360 degree, starting in supine position transitioning to prone Carmi LS Cage FDA Start: 06-21-2024 Fusion, spine, lumbar, 360 degree, starting in supine position transitioning to prone Carmi LS Cage FDA Start: 06-21-2024 Fusion, spine, lumbar, 360 degree, starting in supine position transitioning to prone DRESSING,SURGICEL 4x8 FDA Start: 06-21-2024 Fusion, spine, lumbar, 360 degree, starting in supine position transitioning to prone Set Screws FDA Start: 06-21-2024 Fusion, spine, lumbar, 360 degree, starting in supine position transitioning to prone [id number] Carmi LS Cage FDA Start: 06-21-2024 Fusion, spine, lumbar, 360 degree, starting in supine position transitioning to prone Set Screws FDA Start: 06-21-2024 Fusion, spine, lumbar, 360 degree, starting in supine position transitioning to prone Set Screws FDA Start: 06-21-2024 Fusion, spine, lumbar, 360 degree, starting in supine position transitioning to prone Set Screws FDA Start: 06-21-2024 Fusion, spine, lumbar, 360 degree, starting in supine position transitioning to prone Set Screws FDA Start: 06-21-2024 Fusion, spine, lumbar, 360 degree, starting in supine position transitioning to prone Set Screws FDA Start: 06-21-2024 Fusion, spine, lumbar, 360 degree, starting in supine position transitioning to prone Viper Prime Rods FDA Start: 06-21-2024 Fusion, spine, lumbar, 360 degree, starting in supine position transitioning to prone Viper Prime Rods FDA Start: 06-21-2024 Fusion, spine, lumbar, 360 degree, starting in supine position transitioning to prone Viper Prime Screws 7x50 FDA Start: 06-21-2024 Fusion, spine, lumbar, 360 degree, starting in supine position transitioning to prone Viper Prime Screws 7x50 FDA Start: 06-21-2024 Fusion, spine, lumbar, 360 degree, starting in supine position transitioning to prone Viper Prime Screws 7x50 FDA Start: 06-21-2024 Fusion, spine, lumbar, 360 degree, starting in supine position transitioning to prone BONE,30CC CRUSH CANC FDA Start: 06-21-2024 Fusion, spine, lumbar, 360 degree, starting in supine position transitioning to prone Viper Prime Screws 7x50 FDA Start: 06-21-2024 Fusion, spine, lumbar, 360 degree, starting in supine position transitioning to prone viper prime screws 7x45mm FDA Start: 06-21-2024 Fusion, spine, lumbar, 360 degree, starting in supine position transitioning to prone viper prime screws 7x45mm FDA Start: 06-21-2024 Fusion, spine, lumbar, 360 degree, starting in supine position transitioning to prone washer FDA Start: 06-21-2024 Fusion, spine, lumbar, 360 degree, starting in supine position transitioning to prone washer FDA Start: 06-21-2024 Fusion, spine, lumbar, 360 degree, starting in supine position transitioning to prone BONE,60CC CRUSH CANC FDA Start: 06-21-2024 Fusion, spine, lumbar, 360 degree, starting in supine position transitioning to prone Bowtie Screw FDA Start: 06-21-2024 Fusion, spine, lumbar, 360 degree, starting in supine position transitioning to prone Bowtie Screw FDA Start: 06-21-2024 Fusion, spine, lumbar, 360 degree, starting in supine position transitioning to prone Carmi LS Cage FDA Start: 06-21-2024 Fusion, spine, lumbar, 360 degree, starting in supine position transitioning to prone Carmi LS Cage FDA Start: 06-21-2024 Fusion, spine, lumbar, 360 degree, starting in supine position transitioning to prone DRESSING,SURGICEL 4x8 FDA Start: 06-21-2024 Fusion, spine, lumbar, 360 degree, starting in supine position transitioning to prone Set Screws FDA Start: 06-21-2024 Fusion, spine, lumbar, 360 degree, starting in supine position transitioning to prone [id number] Carmi LS Cage FDA Start: 06-21-2024 Fusion, spine, lumbar, 360 degree, starting in supine position transitioning to prone Set Screws FDA Start: 06-21-2024 Fusion, spine, lumbar, 360 degree, starting in supine position transitioning to prone Set Screws FDA Start: 06-21-2024 Fusion, spine, lumbar, 360 degree, starting in supine position transitioning to prone Set Screws FDA Start: 06-21-2024 Fusion, spine, lumbar, 360 degree, starting in supine position transitioning to prone Set Screws FDA Start: 06-21-2024 Fusion, spine, lumbar, 360 degree, starting in supine position transitioning to prone Set Screws FDA Start: 06-21-2024 Fusion, spine, lumbar, 360 degree, starting in supine position transitioning to prone Viper Prime Rods FDA Start: 06-21-2024 Fusion, spine, lumbar, 360 degree, starting in supine position transitioning to prone Viper Prime Rods FDA Start: 06-21-2024 Fusion, spine, lumbar, 360 degree, starting in supine position transitioning to prone Viper Prime Screws 7x50 FDA Start: 06-21-2024 Fusion, spine, lumbar, 360 degree, starting in supine position transitioning to prone Viper Prime Screws 7x50 FDA Start: 06-21-2024 Fusion, spine, lumbar, 360 degree, starting in supine position transitioning to prone Viper Prime Screws 7x50 FDA Start: 06-21-2024 Fusion, spine, lumbar, 360 degree, starting in supine position transitioning to prone BONE,30CC CRUSH CANC FDA Start: 06-21-2024 Fusion, spine, lumbar, 360 degree, starting in supine position transitioning to prone Viper Prime Screws 7x50 FDA Start: 06-21-2024 Fusion, spine, lumbar, 360 degree, starting in supine position transitioning to prone viper prime screws 7x45mm FDA Start: 06-21-2024 Fusion, spine, lumbar, 360 degree, starting in supine position transitioning to prone viper prime screws 7x45mm FDA Start: 06-21-2024 Fusion, spine, lumbar, 360 degree, starting in supine position transitioning to prone washer FDA Start: 06-21-2024 Fusion, spine, lumbar, 360 degree, starting in supine position transitioning to prone washer FDA Start: 06-21-2024 Fusion, spine, lumbar, 360 degree, starting in supine position transitioning to prone BONE,60CC CRUSH CANC FDA Start: 06-21-2024 Fusion, spine, lumbar, 360 degree, starting in supine position transitioning to prone Bowtie Screw FDA Start: 06-21-2024 Fusion, spine, lumbar, 360 degree, starting in supine position transitioning to prone Bowtie Screw FDA Start: 06-21-2024 Fusion, spine, lumbar, 360 degree, starting in supine position transitioning to prone Carmi LS Cage FDA Start: 06-21-2024 Fusion, spine, lumbar, 360 degree, starting in supine position transitioning to prone Carmi LS Cage FDA Start: 06-21-2024 Fusion, spine, lumbar, 360 degree, starting in supine position transitioning to prone DRESSING,SURGICEL 4x8 FDA Start: 06-21-2024 Fusion, spine, lumbar, 360 degree, starting in supine position transitioning to prone Set Screws FDA Start: 06-21-2024 Fusion, spine, lumbar, 360 degree, starting in supine position transitioning to prone [id number] Carmi LS Cage FDA Start: 06-21-2024 Fusion, spine, lumbar, 360 degree, starting in supine position transitioning to prone Set Screws FDA Start: 06-21-2024 Fusion, spine, lumbar, 360 degree, starting in supine position transitioning to prone Set Screws FDA Start: 06-21-2024 Fusion, spine, lumbar, 360 degree, starting in supine position transitioning to prone Set Screws FDA Start: 06-21-2024 Fusion, spine, lumbar, 360 degree, starting in supine position transitioning to prone Set Screws FDA Start: 06-21-2024 Fusion, spine, lumbar, 360 degree, starting in supine position transitioning to prone Set Screws FDA Start: 06-21-2024 Fusion, spine, lumbar, 360 degree, starting in supine position transitioning to prone Viper Prime Rods FDA Start: 06-21-2024 Fusion, spine, lumbar, 360 degree, starting in supine position transitioning to prone Viper Prime Rods FDA Start: 06-21-2024 Fusion, spine, lumbar, 360 degree, starting in supine position transitioning to prone Viper Prime Screws 7x50 FDA Start: 06-21-2024 Fusion, spine, lumbar, 360 degree, starting in supine position transitioning to prone Viper Prime Screws 7x50 FDA Start: 06-21-2024 Fusion, spine, lumbar, 360 degree, starting in supine position transitioning to prone Viper Prime Screws 7x50 FDA Start: 06-21-2024 Fusion, spine, lumbar, 360 degree, starting in supine position transitioning to prone BONE,30CC CRUSH CANC FDA Start: 06-21-2024 Fusion, spine, lumbar, 360 degree, starting in supine position transitioning to prone Viper Prime Screws 7x50 FDA Start: 06-21-2024 Fusion, spine, lumbar, 360 degree, starting in supine position transitioning to prone viper prime screws 7x45mm FDA Start: 06-21-2024 Fusion, spine, lumbar, 360 degree, starting in supine position transitioning to prone viper prime screws 7x45mm FDA Start: 06-21-2024 Fusion, spine, lumbar, 360 degree, starting in supine position transitioning to prone washer FDA Start: 06-21-2024 Fusion, spine, lumbar, 360 degree, starting in supine position transitioning to prone washer FDA Start: 06-21-2024 Fusion, spine, lumbar, 360 degree, starting in supine position transitioning to prone BONE,60CC CRUSH CANC FDA Start: 06-21-2024 Fusion, spine, lumbar, 360 degree, starting in supine position transitioning to prone Bowtie Screw FDA Start: 06-21-2024 Fusion, spine, lumbar, 360 degree, starting in supine position transitioning to prone Bowtie Screw FDA Start: 06-21-2024 Fusion, spine, lumbar, 360 degree, starting in supine position transitioning to prone Carmi LS Cage FDA Start: 06-21-2024 Fusion, spine, lumbar, 360 degree, starting in supine position transitioning to prone Carmi LS Cage FDA Start: 06-21-2024 Fusion, spine, lumbar, 360 degree, starting in supine position transitioning to prone DRESSING,SURGICEL 4x8 FDA Start: 06-21-2024 Fusion, spine, lumbar, 360 degree, starting in supine position transitioning to prone Set Screws FDA Start: 06-21-2024 ([id number]) Metal-backed pat delfina prosthesis ()[id number] FDA Start: 08-05-2022 ([id number]) Coated knee femu r prosthesis ()[id number] FDA Start: 08-05-2022 ([id number]) Coated knee tibi a prosthesis ()[id number])[id number])CT [id number] FDA Start: 08-05-2022 ([id number]) Tibial insert ()[id number] FDA Start: 08-05-2022 ([id number]) Coated knee femu r prosthesis ()[id number] FDA Start: 01-28-2023 ([id number]) Coated knee tibi a prosthesis ()[id number])CT [id number] FDA Start: 01-28-2023 Orthopaedic ceme nt, non-antimicrobial ()[id number])[id number] FDA Start: 01-28-2023 ([id number]) Polyethylene pat delfina prosthesis ()[id number] [id number] FDA Start: 01-28-2023 ([id number]) Tibial insert ()[id number])[id number] FDA Start: 01-28-2023 Goals Date Patient Goal Desired Activity /State Functional Status Date Assessment Result Facility 06-22-2024 Functional status Chair;Bedrest [facility] Work Phone: 01-31-[address] [facility] Work Phone: 08-08-[address] [facility] Work Phone: Mental Status Date Assessment Result Facility 06-22-2024 Cognitive function Level Of Cons ciousness Awake;Alert;Appropriate;Follow s Commands [facility] Work Phone: 06-22-2024 Cognitive function Voice/Name [facility] Work Phone: 04-07-2024 Cognitive function Voice/Name;Touch/Shaki ng [facility] Work Phone: 03-11-2023 Cognitive function Voice/Name [facility] Work Phone: 01-31-2023 Cognitive function Appropriate;Cooperativ e [facility] Work Phone: 01-31-2023 Cognitive function Arousable To Voice/Nam e [facility] Work Phone: 09-17-2022 Cognitive function Voice/Name [facility] Work Phone: 08-08-2022 Cognitive function Voice/Name [facility] Work Phone: Clinical Notes 08-05-2022 to 12-22-2024 Note Date & Type Note Facility 12-22-2024 Radiology Diagnostic study note [facility] Imaging Services [address] [place] [address] L/S Spine Min 4 Views MR#: [id number] Acct: [id number] Name: OZIEL BURTON Rep #: [id number] : 1970 M 54 From: Willam Valdez MD PCP: Dr. Renzo Beatty, Status: REG CLI Study:L/S Spine Min 4 Views Date of Exam: 12/21/24 Exam# [id number] Ordering Dr: Kathryn Miranda MD PROCEDURE: L/S SPINE MIN 4 VIEWS 12/21/2024 REASON FOR EXAM: POST OP TECHNIQUE: L/S SPINE MIN 4 VIEWS COMPARISON: 09/21/2024 FINDINGS: Postoperative changes of posterior instrumented fusion with disc spacers from L3-S1. Hardware appears intact and in stable alignment. No subluxation is appreciated. The L5-S1 disc spacer appears anteriorly displaced/migrated, unchanged from multiple prior exams. Mild multilevel spondylotic changes with varying degrees of disc space narrowing, endplate sclerosis and anterior osteophytosis, and hypertrophic facet arthropathy. Unremarkable soft tissues. RAD/L/S Spine Min 4 Views IMPRESSION: No acute findings. Chronic degenerative and postoperative changes as described. Reading Location: [id number] CC: Dr. Jai Miranda MD; Dr. Renzo Beatty, ~ Court Clerk: Signed [facility] 10-11-2024 Discharge summary [facility] 10-11-2024 Discharge summary Note Date/Time October 11, 2024 1:35pm [facility] Physical Therapy [address] [place] [address] / REHABILITATION SERVICES DISCHARGE SUMMARY MR#: [id number] Acct: [id number] Name: OZIEL BURTON Rep #: [id number] : 1970 54 From: Denzel Reyes DP T Referring Dr.: Dr. Jai Miranda MD Status: REG RCR Insurance: [employer] S[employer] PAY INSURANCE Discharge Summary D/C summary: It has been my pleasure to treat OZIEL BURTON referred by Dr. Jai Miranda MD, with the diagnosis of Lumbar fusion, DOS: 06/21/24 for a total of 21 visit(s). Discharge Date: 10/11/24 Please see the following information for a summary of their discharge status. Subjective Subjective: Pt. reports being 80% better overall. Pt. reports sleeping well, butstill has some tenderness at middle of his back. Pt. reports being 80% better overall. Pt. is HEP compliant. Pain Lumbar spine: Pain Intensity (Out of 10): 0 L flank: Pain Intensity (Out of 10): 0 Overall Improvement % Improvement: 80 Objective Objective/Function: ROM: Lumbar: flexion full NE, ext min loss tightness, SB minlos bilat, rotation full motion NE. Pt. has normal HS length bilaterally. Pt. has good B hip ROM. MMT: full without increase in symptoms. No myotomal weakness noted. Fair core strength. GAIT: normal without issues, normal posture, no issues. STAIRS: normal without weakness, no increase in symptoms. Goals Goal 1:: LTG: Pt. to be I with HEP. Goal Progress: Goal Met Goal 2:: STG: Pt. to sleep without increase in symptoms. Goal Progress: Goal Met Goal 3:: STG: Pt. to have no issues with sit to stand movements. Goal Progress: Goal Met Goal 4:: LTG: to have full strength of BLEs without increase in symptoms. Goal Progress: Goal Met Goal 5:: LTG: Pt. to ambulate unlimited distances without increase in lumbar spine pain. Goal Progress: Goal Met Goal 6:: LTG: Pt. to report no lumbar spine pain with all functional mobility. Goal Progress: Goal Met Plan Plan: Pt. to be DC from PT at this point in time. Pt. has met all goals. D/C Information d/c sentence: If there are questions or concerns regarding this patient's physical therapy, please feel free to call me at [phone]. Thank you for the referral of thispatient. Sincerely, Denzel Reyes, DPT Balance/Gait/Functional tests Balance/Special Test Scores Oswestry Low Back Score: 0 Improvement % Improvement: 80 <Electronically signed by Denzel Reyes DPT> 10/11/24 1136 CC: Dr. Jai Miranda MD; Dr. Renzo Beatty, DO ~ CLS Signed [facility] Work Phone: 1(938) 529-502105-28-2025 Radiology Diagnostic study note [facility] Imaging Services [address] [place], [place] [address] Lumbar Spine 2 or 3 Views MR#: [id number] Acct: [id number] Name: OZIEL BURTON Rep #: [id number] : 1970 M 54 From: Daniel Irwin MD PCP: Dr. Renzo Beatty, Status: REG CLI Study:Lumbar Spine 2 or 3 Views Date of Exam: 09/21/24 Exam# [id number] Ordering Dr: Kathryn Miranda MD PROCEDURE: LUMBAR SPINE 2 OR 3 VIEWS 09/21/2024 REASON FOR EXAM: S/P LUMBAR FUSION TECHNIQUE: 2 view(s) of the lumbar spine COMPARISON: 06/22/2024, 07/06/2024 and 08/03/2024 FINDINGS: From 06/22/2024 to 07/06/2024 the intervertebral disc spacer at L5-S1 migrated and was mostly extruded anteriorly. Currently the appearance of this mostly extruded intervertebral disc spacer is not significantly changed in its position from the most recent study of 08/03/2024. The disc spacing at L5-S1 appears decreased compared to that of 06/22/2024. There is again note of intervertebral disc spacers L3-4 and L4-5, left lateral anchor screws L3 andL5 and bilateral posterior fusion with transpedicular screws L3, L5 and S1 which appear intact and anatomicwithout fracture. There is again note of L1-2 spondylosis/discogenic change. RAD/Lumbar Spine 2 or 3 Views IMPRESSION: See above for details. Reading Location: [id number] CC: Dr. Jai Miranda MD; Dr. Renzo Beatty DO ~ Court Clerk: Signed [facility]05-27-2025 Evaluation note* Diagnosis Onset Date Resolution Status Admit Date Status post lumbar spinal fusion acute September 21, 2024 1 0:22am Status post lumbar spinal fusion acute December 23 10:54am [facility] [place] Work Phone: 1([phone]) 108-640204-08-2025 Radiology Diagnostic study note [facility] Imaging Services [address], [place] [address] Lumbar Spine 2 or 3 Views MR#: [id number] Acct: [id number] Name: OZIEL BURTON Rep #: [id number] : 1970 M 54 From: And anni Silva DO PCP: Dr. Renzo Beatty DO Status: REG CLI Study:Lumbar Spine 2 or 3 Views Date of Exam: 08/03/24 Exam# [id number] Ordering Dr: Kathryn Miranda MD PROCEDURE: Lumbar spine radiographs, three views 08/03/2024 REASON FOR EXAM: PAIN TECHNIQUE: Three views of the lumbar spine were obtained. COMPARISON: 07/06/2024 FINDINGS: Three views of the lumbar spine were obtained. Bones are osteopenic. Included portions of the pelvis and proximal femurs are intact. Intact intrapedicular screws of L3, L5, and S1, with posterior connecting fusionrods. No acute lumbar vertebral body fracture or focal subluxation. Similar multilevel degenerative disc and facet disease inthe lumbar spine. There are interbody spacer devices at L3-4 through L5-S1. There is slightly more anterior position of the interbody spacer device at the L5-S1 level compared to 06/22 24. RAD/Lumbar Spine 2 or 3 Views IMPRESSION: Osteopenia. No acute lumbar vertebral body fracture. Grossly intact intrapedicular screws and posterior fusion rods from L3-S1. Similar multilevel degenerative disc and facet disease in the lumbar spine. The interbody spacer device at the anterior margin of the L5-S1 level appears more anteriorly positioned when compared to 06/22/2024. Reading Location: [facility] CC: Dr. Jai Miranda MD; Dr. Renzo Beatty DO ~ Court Clerk: Signed [facility]04-08-2025 Evaluation note* Diagnosis Onset Date Resolution Status Admit Date Status post lumbar spinal fusion acu te August 03, 2024 10:53am Status post lumbar spinal fusion acu te September 21, 2024 10:22am [facility] Work Phone: 1(774) 195-624003-11-2025 Radiology Diagnostic study note [facility] Imaging Services [address] [place] [address] Lumbar Spine 2 or 3 Views MR#: [id number] Acct: [id number] Name: OZIEL BURTON Rep #: [id number] : 1970 M 54 From: Jalyn Newby MD PCP: Dr. Renzo Beatty DO Status: REG CLI Study:Lumbar Spine 2 or 3 Views Date of Exam: 07/06/24 Exam# [id number] Ordering Dr: Nikita Coy EXAM: XR Lumbosacral Spine, 2 or 3 Views CLINICAL INDICATION: S/P FUSION TECHNIQUE: Frontal and lateral views of the lumbar spine and sacrum. COMPARISON: No relevant prior studies available. FINDINGS: VERTEBRAE: Unremarkable. No acute fracture. Normal alignment. SACRUM/COCCYX: Unremarkable as visualized. No acute fracture. DISC SPACES: Status post posterior fusion L3-S1 with disc spacers. Intact hardware. Anatomic position. SOFT TISSUES: Unremarkable. RAD/Lumbar Spine 2 or 3 Views IMPRESSION: Postoperative changes as above. Reading Location: [facility] CC: MOUSTAPHA Montoya; Dr. Renzo Beatty DO ~ Court Clerk: Signed [facility]02-24-2025 Evaluation note* Diagnosis Onset Date Resolution Status Admit Date Status post lumbar spinal fusion acute June 21 025 2:27pm Spondylolisthesis, lumbar region resolved June 21 025 2:27pm Status post lumbar spinal fusion acute July 06, 2024 10:53am History of deep vein thrombosis acute July 15, 2024 9:52am Lower extremity pain, bilateral acute July 15, 2024 9:52am Status post lumbar spinal fusion acute August 03, 2024 10:53am Status post lumbar spinal fusion acute September 21, 2024 1 0:22am [facility] Work Phone: 1(219) 900-406902-24-2025 [facility] Medical Records Department [address] [place] [address] History Physical Exam 06/21/24 0723 MR#: [id number] Acct: [id number] Name: OZIEL BURTON Rep #: [id number] : 1970 54 From: Jai Miranda MD PCP: Dr. Renzo Beatty, DO Status:ADM IN Location: [place] [address] History and Physical Date of Admission: 06/21/24 MR#: [id number] Acct: [id number] Name: OZIEL BURTONY Rep #: [id number] : 1970 Provider: Dr. Jai Miranda MD Age/Sex: 54/M Location: [facility] [place] Status: Signed Intake Vital Signs 04/07/2406:01 Height 5 ft 9 in Intake Visit Reasons: lumbar spine Chief Complaint: pre op lumbar spine Is patient in pain?: Yes (lumbar spine ) Pain scale (1-10): 4 Allergies olmesartan medoxomil (From Benicar) Allergy (Verified 06/11/24 10:52) Itching Medications ???Medication ???Instructions ???Recorded ???Confirmed ???Type calcium 315 mg (as 2 tab PO QHS SUPPLEMENT 04/25/20 06/11/24 History citrate)-vitamin D3 5 mcg (200 unit) tablet (Calcium Citrate + D) multivitamin 2 cap PO DAILY SUPPLEMENT 04/25/20 06/11/24 Histor y amlodipine 5 mg tablet 5 mg PO DAILY BP 08/04/20 06/11/24 History mecobalamin (vitamin B12) 1,000 1,500 mcg sublingual DAILY 08/04/20 06/11/24 Histo ry mcg disintegrating SUPPLEMENT tablet,sublingual metoprolol succinate 25 mg 25 mg PO DAILY BP 08/04/20 06/11/24 History tablet,extended release 24 hr pantoprazole 20 mg tablet,delayed 40 mg PO DAILY GERD 01/29/21 06/11/24 History release (Protonix) celecoxib 200 mg capsule (Celebrex) 200 mg PO BID PAIN 05/23/21 06/11/24 History cholecalciferol (vitamin D3) 10 10 mcg PO DAILY SUPPLEMENT 01/08/22 06/11/24 Histo ry mcg (400 unit) capsule (Vitamin D3) magnesium 1 tab PO QHS SUPPLEMENT 01/08/22 06/11/24 History gabapentin 100 mg capsule 100 mg PO BID PAIN 02/11/22 06/11/24 History aspirin 81 mg tablet,delayed 81 mg PO DAILY SUPPLEMENT 10/02/22 06/11/24 Histor y release (Adult Aspirin Regimen) fiber 2 cap PO QHS SUPPLEMENT 02/03/24 06/11/24 History trazodone 50 mg tablet 100 mg PO QHS to sleep through the 02/03/24 History night amoxicillin 500 mg tablet 2,000 mg (4 x 500 mg) PO ONCE 04/23/24 06/11/24 Rx DENTAL PROCEDURES #4 tabs PFSH Medical History History of edema Tendinosis of left shoulder Strain of right hand Smoker Acute bronchitis, unspecified Contact with and (suspected) exposure to other viral communicable diseases 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 Traumatic open wound of right lower leg Chronic wound of extremity Degenerative disc disease Varicose veins with inflammation History of hemorrhoids Hypertension GERD (gastroesophageal reflux disease) History of deep vein thrombosis History of diabetes mellitus CPAP (continuous positive airway pressure) dependence Obstructive sleep apnea Arthritis Obesity (BMI 35.0-39.9 without comorbidity) Wears glasses Alcohol use History of steroid therapy DVT (deep venous thrombosis) Back pain Gastric reflux CPAP (continuous positive airway pressure) dependence Leg cramps History of echocardiogram History of stress test Hypertension Varicose veins of right lower extremity Lab test negative for COVID-19 virus Disorder of uvula Diabetes Hemorrhoids Arthritis Surgical History History of bilateral knee arthroplasty History of root canal procedure Hx of knee surgery Hx of arthroplasty Hx of gastric bypass Hx of knee surgery Hx of colonoscopy History of tonsillectomy History of gastric restrictive surgery History of shoulder surgery History of arthroscopic knee surgery History of umbilical hernia repair History of surgical removal of ganglion cyst hx of gastric sleeve H/O shoulder surgery H/O hernia repair H/O knee surgery H/O foot surgery Deviated septum History of tonsillectomy Family History Other Breast cancer Social History Smoking Status: Current some day smoker tobacco type: cigars alcohol intake: current alcohol intake frequency: holidays/special occasions only HPI lumbar spine Chief Complaint: lumbar spine Details: This documentation accurately reflects the service provided and the decisions made by me, Dr. Jai Miranda MD 06/11/24 1050. Part of today???s visit was documented by [ ], acting as scribe. OZIEL BURTON is a 54 year old M here today for pre-op lumbar spine 360 fusion, DOS 06-21-24. 04/06/24: OZIEL Carlos (more content not included)...[facility] 06-11-2024 Evaluation note* Diagnosis Onset Date Resolution Status Admit Date Other intervertebral disc degeneration, lumbar region with discogenic back acute June 112024 10:45am Spondylolisthesis, lumbar region resolved June 11, 2 025 10:45am Status post lumbar spinal fusion acute June 21, 2 025 2:27pm Spondylolisthesis, lumbar region resolved June 21, 2 025 2:27pm Status post lumbar spinal fusion acute July 06, 2024 10:53am History of deep vein thrombosis acute July 15, 2024 9:52am Lower extremity pain, bilateral acute July 15, 2024 9:52am Status post lumbar spinal fusion acute August 03, 2024 10:53am [facility] Work Phone: 1([phone]) 234-724402-14-2025 Evaluation note* Diagnosis Onset Date Resolution Status Admit Date Other intervertebral disc degeneration, lumbar region with discogenic back acute June 112024 10:45am Spondylolisthesis, lumbar region resolved June 11, 2 025 10:45am Status post lumbar spinal fusion acute June 21, 2 025 2:27pm Spondylolisthesis, lumbar region resolved June 21, 2 025 2:27pm Status post lumbar spinal fusion acute July 06, 2024 10:53am History of deep vein thrombosis acute July 15, 2024 9:52am Lower extremity pain, bilateral acute July 15, 2024 9:52am Status post lumbar spinal fusion acute August 03, 2024 10:53am Status post lumbar spinal fusion acute September 21, 2024 1 0:22am [facility] Work Phone: 1([phone]) 143-309512-23-2024 Evaluation note* Diagnosis Onset Date Resolution Status Admit Date Orthopedic aftercare acute Dece mber 2023 9:44am Tendinitis of both rotator cuffs acute May 17 10:41am Other intervertebral disc degeneration, lumbar region with discogenic back acute June 112024 10:45am Spondylolisthesis, lumbar region resolved June 11, 2 025 10:45am Status post lumbar spinal fusion acute June 21, 2 025 2:27pm Spondylolisthesis, lumbar region resolved June 21, 2 025 2:27pm Status post lumbar spinal fusion acute July 06, 2024 10:53am History of deep vein thrombosis acute July 15, 2024 9:52am Lower extremity pain, bilateral acute July 15, 2024 9:52am Status post lumbar spinal fusion acute August 03, 2024 10:53am [facility] Work Phone: 1(337) 463-863112-11-2024 [facility] Medical Records Department [address] [place] [address] History Physical Exam 04/07/24 0704 MR#: [id number] Acct: [id number] Name: OZIEL BURTON Rep #: [id number] : 1970 53 From: Ernesto Ramirez MD PCP: Dr. Renzo Beatty DO Status:[facility] Location: [place] [address] HPI - General HPI Narrative OZIEL BURTON, is a 53 M who presents for left shoulder arthroscopy, subacromial decompression debridement. left shoulder marked. no changes to h and p. rab, post op instructions and narcotic counselling. ok to proceed. MR#: [id number] Acct: [id number] Name: OZIEL BURTON Rep #: [id number] : 1970 Provider: Dr. Ernesto Ramirez MD Age/Sex: 53/M Location: [facility] [place] Status: Signed Intake Vital Signs 08/22/2412:24 Height 5 ft 9 in Intake Visit Reasons: LEFT SHOULDER Chief Complaint: Continued Left Shoulder Pain Accompanied by: Self Is patient in pain?: Yes (when moving) Pain scale (1-10): 8 Allergies olmesartan medoxomil (From Benicar) Allergy (Verified 12/30/23 13:59) Itching Medications ???Medication ???Instructions ???Recorded ???Confirmed ???Type calcium citrate 315 mg-vitamin D3 2 tab PO QHS SUPPLEMENT 04/25/20 12/30/23 History 5 mcg (200 unit) tablet (Calcium Citrate + D) multivitamin 2 cap PO DAILY SUPPLEMENT 04/25/20 12/30/23 History amlodipine 5 mg tablet 5 mg PO DAILY BP 08/04/20 12/30/23 History mecobalamin (vitamin B12) 1,000 1,500 mcg sublingual DAILY 08/04/20 12/30/23 History mcg disintegrating SUPPLEMENT tablet,sublingual metoprolol succinate 25 mg 25 mg PO DAILY BP 08/04/20 12/30/23 History tablet,extended release 24 hr pantoprazole 20 mg tablet,delayed 40 mg PO DAILY GERD 01/29/21 12/30/23 History release (Protonix) celecoxib 200 mg capsule (Celebrex) 200 mg PO BID PAIN 05/23/21 12/30/23 History cholecalciferol (vitamin D3) 10 10 mcg PO DAILY SUPPLEMENT 01/08/22 12/30/23 History mcg (400 unit) capsule (Vitamin D3) magnesium 1 tab PO QHS SUPPLEMENT 01/08/22 12/30/23 History gabapentin 100 mg capsule 100 mg PO BID PAIN 02/11/22 12/30/23 History aspirin 81 mg tablet,delayed 81 mg PO DAILY SUPPLEMENT 10/02/22 12/30/23 History release (Adult Aspirin Regimen) acetaminophen 500 mg tablet 1,000 mg (2 x 500 mg) PO Q6H PRN 01/29/23 12/30/23 Rx #100 tabs PFSH Medical History Tendinosis of left shoulder Strain of right hand Smoker History of pain when walking Acute bronchitis, unspecified Contact with and (suspected) exposure to other viral communicable diseases 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 Traumatic open wound of right lower leg Chronic wound of extremity Degenerative disc disease Varicose veins with inflammation History of hemorrhoids Hypertension GERD (gastroesophageal reflux disease) History of deep vein thrombosis History of diabetes mellitus CPAP (continuous positive airway pressure) dependence Obstructive sleep apnea Arthritis Obesity (BMI 35.0-39.9 without comorbidity) Wears glasses Alcohol use History of steroid therapy DVT (deep venous thrombosis) Back pain Gastric reflux CPAP (continuous positive airway pressure) dependence Leg cramps History of echocardiogram History of stress test Hypertension Varicose veins of right lower extremity Lab test negative for COVID-19 virus Disorder of uvula Diabetes Hemorrhoids Arthritis Surgical History Hx of arthroplasty Hx of gastric bypass Hx of knee surgery Hx of colonoscopy History of tonsillectomy History of gastric restrictive surgery History of shoulder surgery History of arthroscopic knee surgery History of umbilical hernia repair History of surgical removal of ganglion cyst hx of gastric sleeve H/O shoulder surgery H/O hernia repair H/O knee surgery H/O foot surgery Deviated septum History of tonsillectomy Family History Other Breast cancer Social History Smoking Status: Current some day smoker tobacco type: cigars alcohol intake: current alcohol intake frequency: holidays/special occasions only HPI LEFT SHOULDER Details: This documentation accurately reflects the service provided and the decisions made by me, Dr. Ernesto Ramirez MD 12/30/23 6286. Part of today???s visit was documented by [ ], acting as scribe. OZIEL BURTON is a 53 year old M here today for left shoulder pain. 2-3 months, no injuyr, lateral side and everywhere worse with motion, somewhat going d (more content not included)...[facility]12-09-2024 Evaluation note* Diagnosis Onset Date Resolution Status Admit Date Other intervertebral disc degeneration, lumbar region with discogenic back acute March 2:48pm Spondylolisthesis, lumbar region resolved April 05 2:48pm Left shoulder pain acute Decemb er 2023 5:29am Tendinitis of both rotator cuffs acute April 07 5:29am Left shoulder pain acute Decemb er 2023 9:47am Tendinitis of both rotator cuffs acute April 09, 2 024 9:47am Orthopedic aftercare acute Dece mber 2023 9:44am Tendinitis of both rotator cuffs acute May 17 10:41am Other intervertebral disc degeneration, lumbar region with discogenic back acute June 112024 10:45am Spondylolisthesis, lumbar region resolved June 11, 2 025 10:45am Status post lumbar spinal fusion acute June 21 2 025 2:27pm Spondylolisthesis, lumbar region resolved June 21, 2 025 2:27pm Status post lumbar spinal fusion acute July 06, 2024 10:53am History of deep vein thrombosis acute July 15, 2024 9:52am Lower extremity pain, bilateral acute July 15, 2024 9:52am [facility] Work Phone: 1(968) 226-395004-27-2024 Discharge summary Author Jimbruce Mckay [facility] August 23, 2023 2:21pm Note Date/Time August 23, 2023 1:4 1pm [facility] Medical Records Department [address] [place] [address] Emergency Department Summary 08/23/23 MR#: [id number] Acct: [id number] Name: OZIEL BURTON Rep #:[id number] : 1970 53 From: Gonsalo BUSH PCP: Dr. Renzo Beatty, DO Status:REG ER Location: ED HPI <ELEAZAR Mandujano - Last Filed: 08/23/23 14:10> History of Present Illness Chief Complaint: Fall Narrative Narrative: Patient is a 53-year-old male with history of hypertension, obesity presents to the emergency department after mechanical fall. Patient states he was cleaning carpets, his feet were wet when he went to an linoleum floor, he smacked his toes against an object, his left knee got turned backwards, and he twisted his left ankle. He denies any head or neck injury. Patient was able to get up on his own. This happened approximately 2 hours ago. He is here for evaluation. Biggest complaint is his right foot or left ankle left knee. He did have bilateral knee replacements 1 year ago. PFSH <ELEAZAR Mandujano - Last Filed: 08/23/23 14:10> [facility] Medical History Acute bronchitis, unspecified Alcohol use Arthritis Arthritis Back pain Chronic wound of extremity Contact with and (suspected) exposure to other viral communicable diseases CPAP (continuous positive airway pressure) dependence CPAP (continuous positive airway pressure) dependence Degenerative disc disease Diabetes Disorder of uvula DVT (deep venous thrombosis) Gastric reflux GERD (gastroesophageal reflux disease) Hemorrhoids History of deep vein thrombosis History of diabetes mellitus History of echocardiogram History of hemorrhoids History of pain when walking History of steroid therapy History of stress test Hypertension Hypertension Lab test negative for COVID-19 virus Leg cramps Obesity (BMI 35.0-39.9 without comorbidity) Obstructive sleep apnea 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 Smoker Strain of right hand Traumatic open wound of right lower leg 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 Wears glasses Home Medications calcium citrate 315 mg-vitamin D3 5 mcg (200 unit) tablet (Calcium Citrate + D) 2 tab PO QHS SUPPLEMENT 04/25/20 [History Last Taken 01/27/23] multivitamin 2 cap PO DAILY SUPPLEMENT 04/25/20 [History Last Taken 01/27/23] amlodipine 5 mg tablet 5 mg PO DAILY BP 08/04/20 [History Last Taken 03/11/23] mecobalamin (vitamin B12) 1,000 mcg disintegrating tablet,sublingual 1,500 mcg sublingual DAILY SUPPLEMENT 08/04/20 [History Last Taken 01/27/23] metoprolol succinate 25 mg tablet,extended release 24 hr 25 mg PO DAILY BP 08/04/20 [History Last Taken 03/11/23] pantoprazole 20 mg tablet,delayed release (Protonix) 40 mg PO DAILY GERD 01/29/21 [History Last Taken 03/11/23] celecoxib 200 mg capsule (Celebrex) 200 mg PO BID PAIN 05/23/21 [History Last Taken 01/19/23] cholecalciferol (vitamin D3) 10 mcg (400 unit) capsule (Vitamin D3) 10 mcg PO DAILY SUPPLEMENT 01/08/22 [History Last Taken 01/27/23] magnesium 1 tab PO QHS SUPPLEMENT 01/08/22 [History Last Taken 01/27/23] gabapentin 100 mg capsule 100 mg PO BID PAIN 10/17/22 [History Last Taken 03/11/23] aspirin 81 mg tablet,delayed release (Adult Aspirin Regimen) 81 mg PO DAILY SUPPLEMENT 10/02/22 [History Last Taken 03/10/23] acetaminophen 500 mg tablet 1,000 mg (2 x 500 mg) PO Q6H PRN #100 tabs 01/29/23 [Rx Last Taken Unknown] hydrocodone-acetaminophen 5-325mg 5mg-325mg 1 tab PO Q6H PRN PRN Pain 3 days #10TABLETS 08/23/23 [Rx Last Taken Unknown] Allergy/AdvReac Type Severity Reaction Status Date / Time olmesartan medoxomil Allergy Itching Verified 08/23/23 13:24 [From Rona] Family History Other Breast cancer Surgical History Deviated septum H/O foot surgery H/O hernia repair H/O knee surgery H/O shoulder surgery History of arthroscopic knee surgery History of gastric restrictive surgery History of shoulder surgery History of surgical removal of ganglion cyst History of tonsillectomy History of tonsillectomy History of umbilical hernia repair Hx of arthroplasty Hx of colonoscopy Hx of gastric bypass hx of gastric sleeve Hx of knee surgery Social History Smoking Status: Current some day smoker tobacco type: cigars alcohol intake: current alcohol intake frequency: holidays/special occasions only ROS <ELEAZAR Mandujano - Last Filed: 08/23/23 14:10> ROS ED ROS Narrative Constitutional: Negative for fever, chills, weight loss, weakness Eyes: Negative for vision loss, vision change, double vision ENT: Negative for any sore throat, ear pain, congestion Cardiovascular: Negative for any chest pain, tightness, palpitations Respiratory: Negative for any cough, sputum production, hemoptysis, dyspnea, dyspnea on exertion, orthopnea Gastrointestinal: Negative for any abdominal pain, nausea, vomiting, diarrhea, constipation, blood in stool, blood in vomit : Negative for any urinary frequency, dysuria, retention, blood in urine Muscle skeletal: Negative for any neck pain, back pain. Positive for right footpain, left ankle, left knee Neurological: Negative for any headache, syncope, dizziness Skin: Negative for any rashes, itching, abrasions, lacerations Psychiatric: Negative for any depression, anxiety, stress, suicidal ideation, homicidal ideation Hematologic: Negative for any excessive bruising, easy bleeding EXAM <ELEAZAR Mandujano - Last Filed: 08/23/23 14:10> Physical Exam Narrative Exam Narrative: Vital signs reviewed. HEET: Head normocephalic atraumatic, TMs clear bilaterally. Posterior pharynx is clear, moist mucous membranes. Nares clear bilaterally. Neck: Supple with no lymphadenopathy or tenderness. No signs of meningismus. Cardiac: Regular rate and rhythm no murmurs gallops or rubs, equal peripheral pulses bilaterally. Respiratory: Lungs clear to auscultation bilaterally. No chest tenderness. Abdomen: Soft, nontender, nondistended. No abdominal bruit or pulsatile masses. No hepatosplenomegaly Extremities: No peripheral edema, no signs of gross trauma or deformity. Activefull range of motion of all extremities. Patient has bilateral intact extensor Meggezones. Patient's pain to the right foot is mostly along the fifth toe as well as the fifth metatarsal, the medial aspect of the ankle on the left as wellas the left knee. There is some swelling to the left knee. Patient is able to flex and extend. +2 pedal pulses noted. No neurological focal deficit. Neuro: Cranial nerves II through XII intact, no focal neurological deficits. Skin: Clean dry and intact with no rash, purpura, petechiae, vesicles or pustules. Backs/flank: No CVA tenderness, no midline spinal tenderness, no deformity. Psych: Normal mood and affect. No SI, HI or acute psychosis. Const Vital Signs: 08/23/23 13:24 08/23/23 13:32 Temperature 97.6 F L Temperature Source Temporal Pulse Rate 89 Respiratory Rate 14 Respiratory Effort Normal Respiratory Depth Normal Respiratory Pattern Normal Blood Pressure 135/84 H Blood Pressure Mean 101 Pulse Ox 98 Oxygen Delivery Method Room Air Room Air Positive well nourished and well developed General Appearance ED: well developed <Dr. Jim Mckay MD - Last Filed: 08/23/23 14:21> Physical Exam Const Vital Signs: 08/23/23 13:24 08/23/23 13:32 Temperature 97.6 F L Temperature Source Temporal Pulse Rate 89 Respiratory Rate 14 Respiratory Effort Normal Respiratory Depth Normal Respiratory Pattern Normal Blood Pressure 135/84 H Blood Pressure Mean 101 Pulse Ox 98 Oxygen Delivery Method Room Air Room Air [facility] <ELEAZAR Mandujano - Last Filed: 08/23/23 14:10> [facility] Radiography Diagnostic Testing: Clinical Impression(s) from Imaging Studies Ankle X-Ray 08/23/23 13:45 IMPRESSION: Acute versus chronic avulsion fracture of the medial malleolus. Soft tissue swelling. Electronically Signed: Jarret Sung MD at 14:04 EDT , Knee X-Ray 08/23/23 13:45 IMPRESSION: Intact lead spaces. Small knee joint effusion. Soft tissue swelling. Electronically Signed: Jarret Sung MD at 14:09 EDT , Treatment and Re-Evaluation :: Patient appears generally well, patient appears nontoxic, vital signs are stable. Patient presents to the emergency department with complaints of right foot. COVID left ankle pain, left knee pain. Patient will receive x-rays of these extremities concerning for any contusion versus fracture versus dislocation. All radiologic examinations were read, reviewed by the emergency department attending. From these reads, a plan of care will be put in place. Patient given Tylenol here. Patient's x-ray of the later the right foot was unremarkable, left knee was unremarkable, and the hardware appeared to be in place. Patient is ankle x-ray did show a distal medial nondisplaced fracture of the distal tibia. Patient placed in a walking boot. He will be given pain medicine for home. Instructed to ice and elevate. He will follow-up with [facility] outpatient. All questionswere answered, patient stable for discharge. <Dr. Jim Mckay MD - Last Filed: 08/23/23 14:21> [facility] Narrative Medical decision making narrative: I have personally performed a face to face assessment of the patient and have reviewed the DAREN Note. I performed a substantive portion of the visit including all aspects of the following. My fontanez findings include: History is remarkable for left ankle/foot and knee pain status post fall. He was washing carpet. He went on the linoleum and slipped. He states his right leg went 1 way his left went the other. He is status post left total knee arthroplasty this past fall by Dr. Jason Fritz. He denies head trauma. Nuysneck pain. He denies paresthesia, anesthesia or motor weakness. Exam is remarkable for pain medial mid left thigh. There is swelling of the left knee compared to the right. He believes this is chronic. There is pain outpatient over the left patella and there is a bruise noted over the left patella. He is able to extend to 180 degrees and flex to 90 degrees. There is no joint line tenderness. There is discomfort with Yaron's test. There is nolaxity. There is no pain palpation the popliteal fossa nodes or palpable mass or fullness appreciated. There is pain outpatient over the tip of the medial malleolus. There is slight soft tissue swelling compared to the uninjured extremity. There is also pain palpation over the tarsal bones. There is no pain the patient with the base of the fifth metatarsal or over the lateral malleolus. There is no discomfort with logrolling of the left lower extremity. There is no pain ovation of the left ankle area or greater trochanteric region. Medical Decision Making x-ray of the knee and ankle were obtained. 4 views of the knee was performed and 3 of the ankle. Per my independent review there is asmall nondisplaced medial malleolus fracture. The knee x-ray reveals the prosthesis to be in proper position. There is no evidence of fracture of the patella. Other additions or changes: Discharged to home to follow-up with Dr. Jason Fritz per patient's request. Radiography Chest X-Ray - ED: Read by ED Physician (The x-rays were independent reviewed interpreted by me at 1400.) Diagnostic Testing: Clinical Impression(s) from Imaging Studies Ankle X-Ray 08/23/23 13:45 IMPRESSION: Acute versus chronic avulsion fracture of the medial malleolus. Soft tissue swelling. Electronically Signed: Jarret Sung MD at 14:04 EDT , Knee X-Ray 08/23/23 13:45 IMPRESSION: Intact lead spaces. Small knee joint effusion. Soft tissue swelling. Electronically Signed: Jarret Sung MD at 14:09 EDT Reading Location ID and State: [address] [place] [address] Tel , Service support , Discharge Plan Triage Chief Complaint: Fall ED Midlevel Provider: Gnosalo Hwang ED Provider: Jim Mckay Dx/Rx/DC Orders Clinical Impression: Fracture of distal end of left tibia, Avulsion fracture Instructions: How Bones Heal, ED Ankle Fracture Prescriptions: New hydrocodone-acetaminophen 5-325 mg tablet 1 tab PO Q6H PRN PRN (Reason: Pain) 3 Days Qty: 10 0RF No Action calcium citrate-vitamin D3 [Calcium Citrate + D] 315 mg-5 mcg (200 unit) tablet 2 tab PO QHS multivitamin capsule 2 cap PO DAILY mecobalamin (vitamin B12) 1,000 mcg tablet,disintegrating 1,500 mcg SL DAILY Rx Instructions: place tablet under tongue and allow to dissolve for at least30 secs before swallowing amlodipine 5 mg tablet 5 mg PO DAILY metoprolol succinate 25 mg tablet extended release 24 hr 25 mg PO DAILY pantoprazole [Protonix] 20 mg tablet,delayed release (DR/EC) 40 mg PO DAILY gabapentin 100 mg capsule 100 mg PO BID aspirin [Adult Aspirin Regimen] 81 mg tablet,delayed release (DR/EC) 81 mg PO DAILY Hold Instructions: Resume on 02/12/23. celecoxib [Celebrex] 200 mg Capsule 200 mg PO BID Hold Instructions: Resume on 02/28/23. While taking anti-coagulant cholecalciferol (vitamin D3) [Vitamin D3] 10 mcg (400 unit) Capsule 10 mcg PO DAILY magnesium Tablet 1 tab PO QHS acetaminophen [acetaminophen] 500 mg tablet 1,000 mg PO Q6H PRN Qty: 100 0RF Primary Care Provider: Renzo Beatty Referrals: Jason Fritz DO [Med Staff - Active Staff] - Renzo Beatty DO [Primary Care Provider] - Activity Restrictions/Additional Instructions: Use the walking boot when you are up and around. Ice. Follow-up outpatient Disposition Disposition: Home, Self Care What to do if you have Problems For any increased pain, shortness of breath, bleeding, nausea or vomiting, chestpain, or any unexpected problems, contact your Primary Care Provider. Call [facility] ([phone]) or report to the closest Emergency Room. Call 911 if necessary. 08/23/23 1410 <Electronically signed by Gonsalo BUSH> Cosigner Signature (if applicable): 08/23/23 1421 <Electronically signed by Karuna MILES> CC: Dr. Renzo Beatty, DO ~ Signed [facility] Work Phone: 1(932) 491-518902-09-2024 Discharge summary Author Mayco Bridges [facility] June 06, 2023 12:50pm Note Date/Time June 06, 2023 1 2:50pm [facility] Physical Therapy [facility] [address] [place] [address] [address] [place] [address] / REHABILITATION SERVICES DISCHARGE SUMMARY MR#: [id number] Acct: [id number] Name: OZIEL BURTON Rep #: [id number] : 1970 53 From: Mayco Bridges DPT, OCS, CSCS Referring Dr.: Dr. Jason Fritz, DO Status: REG RCR Insurance: [employer]/[facility] SELF PAY INSURANCE Patient Information Patient Information: OZIEL BURTON was seen in my office for initial evaluation on 02/04/23. The following Plan of Care was established for this patient: POC Established Initial Frequency: 3x /Week Initial Duration: 4-6 Weeks Anticipated Interventions Patient/Client Instruction: Educate patient on: Condition and Plan of Care For the Purpose of:: To decrease pain, To increase ROM, To improve nutrient delivery to tissue, To improve muscle performance and motor function and To increase tolerance to activity/condition/position Therapeutic Exercise to Include: Strength training, Balance training, Flexibiltytraining, Gait and locomotor training, Passive ROM and Active ROM For the Purpose of:: To decrease pain, To increase ROM, To improve nutrient delivery to tissue, To improve muscle performance and motor function, To increase tolerance to activity/condition/position, To improve ability of physical actions for home/community/work/leisure and To improve gait and locomotor functions Manual Therapy Techniques to Include: Passive ROM and Soft tissue mobilization For the Purpose of:: To decrease pain, To increase ROM, To improve nutrient delivery to tissue and To improve muscle performance and motor function Cryotherapy (ice pack, ice massage): Yes For the Purpose of:: To decrease pain, To decrease swelling/inflammation, To increase ROM and To improve nutrient delivery to tissue Last Seen Last Seen: This patient was last seen in our office 04/23/23. Pertinent comments regardingtheir Physical therapy will appear below: Pt seen for 21 visits after knee replacement and made slow progress including needing a manipulation. After his latest recheck, he had two visits of HEP instruct as he was functional and then was to f/u two weeks later but did not schedule or attend. At this point, it has been over 5 weeks and I will discontinue from therapy. At this point I will be discontinuing this patient from physical therapy. I would be happy to see this patient again in the future if found appropriate by the physician. Thank you! Mayco Bridges, BECCA, OCS, CSCS Balance/Gait/Functional tests Balance/Special Test Scores WOMAC Total Score: 30 WOMAC Percentage: 68.7500 <Electronically signed by Myaco Bridges DPT, SHUN, CSCS> 06/06/23 1250 CC: Dr. Jason Fritz DO; Dr. Renzo Beatty DO ~ EBG Signed [facility] Work Phone: 1(623) 512-895911-14-2023 History and physical note Author Jason Fritz [facility] March 11, 2023 2:27pm Note Date/Time March 11, 2023 2:27pm [facility] Medical Records Department [address] [place] [address] History & Physical Exam 03/11/23 1427 MR#: [id number] Acct: [id number] Name: OZIEL BURTON Rep #:[id number] : 1970 52 From: Jason Fritz DO PCP: Dr. Renzo Beatty DO [place] [facility] [place] [address] History and Physical Date of Admission: 03/11/23 [facility] [facility] [address] [place] [address] OFFICE VISIT Date of Service: 03/10/23 MR#: [id number] Acct: [id number] Name: OZIEL BURTON Rep #: [id number] : 1970 Provider: Dr. Jason Fritz, Age/Sex: 52/M Location: [facility] Status: Signed Intake Vital Signs 11/13/2309:01 01/31/2312:59 Height 5 ft 9 in 5 ft 9 in Intake Visit Reasons: left knee Chief Complaint: 6 week f/u from Left TKA Accompanied by: Self Is patient in pain?: Yes Allergies olmesartan medoxomil [From Benicar] Allergy (Verified 03/10/23 10:20) Itching Medications calcium citrate 315 mg-vitamin D3 5 mcg (200 unit) tablet (Calcium Citrate + D) 2 tab PO QHS SUPPLEMENT 04/25/20 [History Confirmed 03/10/23] multivitamin 2 cap PO DAILY SUPPLEMENT 04/25/20 [History Confirmed 03/10/23] amlodipine 5 mg tablet 5 mg PO DAILY BP 08/04/20 [History Confirmed 03/10/23] mecobalamin (vitamin B12) 1,000 mcg disintegrating tablet,sublingual 1,500 mcg sublingual DAILY SUPPLEMENT 08/04/20 [History Confirmed 03/10/23] metoprolol succinate 25 mg tablet,extended release 24 hr 25 mg PO DAILY BP 08/04/20 [History Confirmed 03/10/23] pantoprazole 20 mg tablet,delayed release (Protonix) 40 mg PO DAILY GERD 01/29/21 [History Confirmed 03/10/23] celecoxib 200 mg capsule (Celebrex) 200 mg PO BID PAIN 05/23/21 [History Confirmed 03/10/23] cholecalciferol (vitamin D3) 10 mcg (400 unit) capsule (Vitamin D3) 10 mcg PO DAILY SUPPLEMENT 01/08/22 [History Confirmed 03/10/23] magnesium 1 tab PO QHS SUPPLEMENT 01/08/22 [History Confirmed 03/10/23] gabapentin 100 mg capsule 100 mg PO BID PAIN 02/11/22 [History Confirmed 03/10/23] aspirin 81 mg tablet,delayed release (Adult Aspirin Regimen) 81 mg PO DAILY SUPPLEMENT 10/02/22 [History Confirmed 03/10/23] acetaminophen 500 mg tablet 1,000 mg (2 x 500 mg) PO Q6H PRN #100 tabs 01/29/23 [Rx Confirmed 03/10/23] PFSH Medical History Acute bronchitis, unspecified Alcohol use Arthritis Arthritis Back pain Chronic wound of extremity Contact with and (suspected) exposure to other viral communicable diseases CPAP (continuous positive airway pressure) dependence CPAP (continuous positive airway pressure) dependence Degenerative disc disease Diabetes Disorder of uvula DVT (deep venous thrombosis) Gastric reflux GERD (gastroesophageal reflux disease) Hemorrhoids History of deep vein thrombosis History of diabetes mellitus History of echocardiogram History of hemorrhoids History of pain when walking History of steroid therapy History of stress test Hypertension Hypertension Lab test negative for COVID-19 virus Leg cramps Obesity (BMI 35.0-39.9 without comorbidity) Obstructive sleep apnea 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 Smoker Traumatic open wound of right lower leg 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 Wears glasses Surgical History Deviated septum H/O foot surgery H/O hernia repair H/O knee surgery H/O shoulder surgery History of arthroscopic knee surgery History of gastric restrictive surgery History of shoulder surgery History of surgical removal of ganglion cyst History of tonsillectomy History of tonsillectomy History of umbilical hernia repair Hx of colonoscopy Hx of gastric bypass hx of gastric sleeve Hx of knee surgery Family History Other Breast cancer Social History Smoking Status: Current some day smoker tobacco type: cigars alcohol intake: current alcohol intake frequency: holidays/special occasions only HPI left knee Details: This documentation accurately reflects the service provided and the decisions made by me, Dr. Jason Fritz, DO 03/10/23 0808. Part of today?s visit was documented by [ ], acting as scribe. OZIEL BURTON is a 52 year old M here today for 6 wk post op, left TKA, dos 01/28/23. States that he is doing good. He states it has been stiff the past few days and after he does therapy and stretches it 5-10 minutes later it is stiff again. He states that at therapy on Friday they measured his flexion and he was at 107 with somebody pushing on his knee. Ortho Exam General General: Yes no acute distress Neurologic: Yes alert and Yes oriented x3 Psychologic: Yes reasonable and appropriate Right Knee Patella Translation: 1 Left Knee Skin/Wound: No ecchymosis, No erythema and No swelling Knee ROM: No ROM-Extension -20 to 0 (5) and No ROM-Flexion 0-140 (84) Examination: No med jt line tenderness and No TTP Tibial tubercle Stability: NML: Anterior Drawer, NML: Posterior Drawer, NML: Valgus 0, NML: Valgus 30, NML: Varus 0 and NML: Varus 30 Patella Translation: 1 KNEE: There is no sign of infection or blood clot he is neurovascular intact incision is healing nicely Head: Normocephalic Atraumatic Chest: symmetrical rise, non-labored breathing, no audible wheeze Abdomen: no guarding, non-rigid Supplemental Info 03/10/2023 x-ray left knee: Status post total knee arthroplasty with good implant position and interfaces. 01/28/2023 left total knee arthroplasty Dr. Fritz 09/17/2022 manipulation under anesthesia right knee: Dr. Fritz 09/06/2022 x-ray right knee: Status post total knee arthroplasty with good interfaces and position no concern 08/05/2022 right total knee arthroplasty Dr. Fritz 05/30/2022 x-ray right knee: Advanced knee arthrosis [id number] medial compartment there is spurring noted in the lateral compartment and patellofemoral joint with subchondral cyst of the patella, varus deformity 05/30/2022 x-ray left knee: [id number] medial compartment varus deformity moderate spurring patellofemoral compartment mild lateral Coding Level of Care Code Global Post Op Diagnoses Status post total left knee replacement Z96.652 Laterality: left Stiffness of left knee M25.662 Arthrofibrosis of total knee replacement, subsequent encounter T84.82XD Encounter type: subsequent encounter Assessment and Plan Assessment and Plan (1) S/P total knee arthroplasty: Status: Acute Qualifiers: Laterality: left Qualified Code(s): Z96.652 - Presence of left artificial knee joint (2) Stiffness of left knee: (3) Arthrofibrosis of total knee arthroplasty: Status: Acute Qualifiers: Encounter type: subsequent encounter Qualified Code(s): T84.82XD - Fibrosis due to internal orthopedic prosthetic devices, implants and grafts, subsequent encounter Orders: Orders Knee 3 Views Today Z96.659 - Presence of unspecified artificial knee joint Plan Oziel has failed to progress with his range of motion as he did on his other knee which did require manipulation under anesthesia of it he did well after this. Spoke with the patient about the benefits of a manipulation under anesthesia with intra-articular steroid injection to improve his knee range of motion. He likely will need post op pain medication although he has 16 tablets at home. He will need to do physical therapy very soon after the manipulation. Reviewed the pre-operative plans with the patient. Risks and benefits of the procedure were fully explained, including but not limited to infection, continued pain, stiffness, need for further surgery, re-injury, general risks of anesthesia,. The patient understands all the risks and does wish to proceed with written consent. Follow up in 1 month post op or sooner if pain, swelling, numbness or associatedsymptoms, or concerns develop. All questions answered. Patient in agreement of plan. Plan Details Goals & Barriers: Target Due Date 01/08/22 03/10/23 1114 <Electronically signed by Jason Fritz DO> Date Jason Fritz DO Cosigner Signature: Date (if applicable) I have examined the patient and the H&P has been reviewed. There are no clinicalchanges since date of exam. 03/11/23 350 <Electronically signed by Jason Fritz DO> Cosigner Signature (if applicable): CC: Dr. Jason Fritz, DO; Dr. Renzo Beatty, DO~ Signed [facility] Work Phone: 1(710) 191-599311-14-2023 Procedure [facility] 11-26-2022 Discharge summary Author Denzel Reyes [facility] November 26, 2022 4:10pm Note Date/Time November 26, 2022 4:1 1pm [facility] Physical Therapy [facility] [facility] [place] [address] / REHABILITATION SERVICES DISCHARGE SUMMARY MR#: [id number] Acct: [id number] Name: OZIEL BURTON Rep #: [id number] : 1970 52 From: Denzel Domínguez Referring Dr.: Dr. Jason Fritz DO Status: REG RCR Insurance: [employer]/[facility] SELF PAY INSURANCE Discharge Summary D/C summary: It has been my pleasure to treat OZIEL BURTON referred by Dr. Jason Fritz DO, with the diagnosis of R TKA DOS: 07/30/22 for a total of 33 visit(s). Discharge Date: 11/26/22 Please see the following information for a summary of their discharge status. Subjective Subjective: Pt. reports being 85% better overall. Pt. pleased with his progress.Pt. reports no pain currently. Pt. reports being HEP compliant without issues. Pain R knee: Pain Intensity (Out of 10): 0 Overall Improvement % Improvement: 85 Objective Objective/Function: TU.02 sec MMT: RLE: knee: ext 40.1#, flexion 37.7#. L knee: ext 41.9#, flexion 35.1#. gait: pt. ambulates without AD, but has fairly good but has slight quad weaknessduring stance phase. STAIRS: normal pattern noted with reciprocal with no HR ROM: 0-0-121deg. Pt. is overall doing well. He is scheduled to have his other knee replaced laterthis year. Goals Goal 1:: LTG: Pt. to be I with HEP. Goal Progress: Goal Met Goal 2:: STG: Pt. to have increased PROM of R knee to 0-0-120deg. Goal Progress: Goal Met Goal 3:: LTG: Pt. to have R knee AROM of 0-0-120deg without increase in symptoms. Goal Progress: Goal Met Goal 4:: STG: Pt. to have symmetrical girth of B knees. NEW GOAL 10/23: Pt. to have equal strength between bilateral LEs Goal Progress: Goal Met Goal 5:: LTG: Pt. to ambulate without use of AD with normal gait pattern. Goal Progress: Goal Met Goal 6:: LTG: Pt. to negotiate 1 flight of stairs with 1 HR with reciprocal pattern. Goal Progress: Goal Met Plan Plan: Pt. will be Dc from PT at this point in time. D/C Information Discharge Comments: Pt. has met all of his goals with PT. Pt. is overall doing well. He has good ROM and improving strength. I talked to him about staying active and continue strengthening in preparation for his upcoming surgery. Pt. consents. Pt. DC from PT this date. d/c sentence: If there are questions or concerns regarding this patient's physical therapy, please feel free to call me at [phone]. Thank you for the referral of thispatient. Sincerely, Denzel Reyes, DPT Balance/Gait/Functional tests Balance/Special Test Scores Lower Extremity Functional Score: 66 TUG Test Time Seconds: 8.02 Tug Test: <10 sec.=free mobile WOMAC Total Score: 2 WOMAC Percentage: 97.7300 <Electronically signed by Denzel Reyes DPT> 11/26/22 1610 CC: Dr. Jason Fritz DO; Dr. Renzo Beatty, DO ~ CLS Signed [facility] Work Phone: 1(709) 550-300504-12-[address] Fritz [facility] August 07, 2022 2:08pm Note Date/Time August 07, 2022 2:0 8pm [facility] Medical Records Department [address] [place] [address] Transfer to [facility] MR#: [id number] Acct: [id number] Name: MICHEALOZIEL VEL Rep #:[id number] : 1970 52 From: Jason Fritz DO PCP: Dr. Renzo Beatty DO Status:ADM IN Certification of patient admission REQUIRED AT TIME OF ADMISSION. I CERTIFY THAT POST-HOSPITAL ECF SERVICES ARE REQUIRED TO BE GIVEN ON AN IN-PATIENT BASIS BECAUSE OF THE ABOVE NAMED PATIENT'S NEED FOR [facility] CARE ON A CONTINUING BASIS FOR THE CONDITION(S) FOR WHICH HE/SHE WAS RECEIVING IN-PATIENT HOSPITAL SERVICES PRIOR TO HIS/HER TRANSFER TO THE ECF. 08/07/22 1408<Electronically signed by Jason Fritz DO> Diet Diet Order/Speech Therapy: 08/05/22 17:52 Diet: Regular - General Wound(s) RT KNEE: Wound Type: Surgical Incision RT LOWER LEG: Wound Type: Surgical Incision Therapies Weight Bearing: Weight bearing as tolerated Problem/Diagnosis (1) S/P total knee arthroplasty: Status: Acute Code(s): Z96.659 - Presence of unspecified artificial knee joint Plan s/p right total knee arthroplasty oxycodone 5-15 mg every 4 hours to control pain more adequately Continue DVT prophylaxis SCDs SANA hose Eliquis 2.5 mg twice daily for 35 days PT OT weightbearing as tolerated Patient be discharged home if his pain is better controlled and tolerates physical therapy on the higher dose of oxycodone and follow-up in the office 2 weeks Allergies/Procedures Done in Hospital Allergies olmesartan medoxomil [From Benicar] Allergy (Verified 08/05/22 10:52) Itching Type of Care/Length of Stay Estimated LOS: Convalescent Care Less Than 30 days Type of Care Needed: Skilled Rehab Potential: Good Prognosis: Good Additional Orders/Day of Discharge Day of Discharge: 08/05/22 Follow Up Care Please Follow Up With: Jason Fritz DO When: 2 weeks Discharge Plan Admission Admit Date/Time: 08/05/22 10:21 Primary Reason for Your Visit: Right total knee arthroplasty Attending Provider: Jason Fritz Primary Care Provider: Renzo Beatty Discharge Orders/Prescriptions Prescriptions: New acetaminophen [acetaminophen] 500 mg tablet 1,000 mg PO Q6H PRN Qty: 100 0RF Eliquis 2.5 mg tablet 2.5 mg PO BID Qty: 70 0RF oxycodone 5 mg tablet 5 - 15 mg PO Q4H PRN (Reason: pain) 5 Days Qty: 60 0RF Rx Instructions: Wean down on pain medication as soon as possible, only take what is needed to control pain supplement with Tylenol and Celebrex. Continued calcium citrate-vitamin D3 [Calcium Citrate + D] 315 mg-5 mcg (200 unit) tablet 2 tab PO QHS multivitamin capsule 2 cap PO DAILY mecobalamin (vitamin B12) 1,000 mcg tablet,disintegrating 1,500 mcg SL DAILY Rx Instructions: place tablet under tongue and allow to dissolve for at least30 secs before swallowing amlodipine 5 mg tablet 5 mg PO DAILY metoprolol succinate 25 mg tablet extended release 24 hr 25 mg PO DAILY pantoprazole [Protonix] 20 mg tablet,delayed release (DR/EC) 40 mg PO DAILY gabapentin 100 mg capsule 100 mg PO BID tadalafil 20 mg tablet 20 mg PO DAILY PRN (Reason: Erectile Dysfunction) Rx Instructions: administer approximately 30min before sexual activity; do not use more than 1 dose per 24hrs celecoxib [Celebrex] 200 mg Capsule 200 mg PO DAILY cholecalciferol (vitamin D3) [Vitamin D3] 10 mcg (400 unit) Capsule 10 mcg PO DAILY magnesium Tablet 1 tab PO QHS Discontinued tramadol 50 mg tablet 50 mg PO BID Label Comments: 50 MG Q AM AND 100 MG PO Q PM Referrals / Follow Up: Renzo Beatty DO [Primary Care Provider] - Disposition Disposition (needs filled in before D/C Order can be placed): Home, Self Care 08/07/22 1408 <Electronically signed by Jason Fritz DO> Cosigner Signature (if applicable): CC: Dr. Renzo Beatty DO ~ [facility] Work Phone: 1(679) 586-459204-12-[address] Fritz [facility] August 07, 2022 7:35am Note Date/Time August 07, 2022 7:3 0am [facility] Medical Records Department [address] [place] [address] Instructions for Home/Discharge Instructions 08/07/22 0729 MR#: [id number] Acct: [id number] Name: OZIEL BURTON Rep #:[id number] : 1970 52 From: Jason Fritz DO PCP: Dr. Renzo Beatty DO Status:ADM IN Discharge Instructions Diet Discharge Diet: No restrictions Activity Weight Bearing Status: Weight bearing as tolerated Dressing / Incision Call your doctor if you observe: Shortness of breath and Chest pain Additional Dressing/Incision Instructions:: Ice and elevate lower extremities 2 weeks while not ambulating. Ambulation is encouraged. Weight bearing as tolerated. Use assistive devise for stability. Encourage FULL knee extension and flexion 1 time EVERY time you get up and down and MULTIPLE times per day. No showering 72 hours after surgery. Begin showering postop day #3. Remove the dressing prior to shower and gently wash with warm water and antibacterial soap then pat dry and place abdominal pad (or plain gauze) and SANA hose over top. This is to be done daily. Do not submerge for 3 weeks. If not showering daily after the initial 72 hours then you must clean incision and change dressing daily. Do not allow animals near the incision area. Keep clean. Follow anti-coagulation recommendations as prescribed. Do not take any NSAIDs while on blood thinner. Do not take any additional narcotic pain medication other than what was prescribed on your surgery day without discussing with physician. Narcotic medication can be addictive, try to wean down as soon as pain allows, do not drink alcohol while taking narcotics. Supplement narcotic prescription with acetaminophen 1000 mg 4 times a day. Start physical therapy. If you are not currently scheduled for physical therapy or you are unsure of appointment time please call office [facility] to arrange. Call Dr. Fritz with any concerns. Follow Up Care Please Follow Up With: Jason Fritz DO When: 2 weeks Test Results: Test results from this visit will be discussed in further detail at your follow- up appointment, if applicable. Discharge Plan Admission Admit Date/Time: 08/05/22 10:21 Primary Reason for Your Visit: Right total knee arthroplasty Attending Provider: Jason Fritz Primary Care Provider: Renzo Beatty Discharge Orders/Prescriptions Prescriptions: New acetaminophen [acetaminophen] 500 mg tablet 1,000 mg PO Q6H PRN Qty: 100 0RF Eliquis 2.5 mg tablet 2.5 mg PO BID Qty: 70 0RF oxycodone 5 mg tablet 5 - 15 mg PO Q4H PRN (Reason: pain) 5 Days Qty: 60 0RF Rx Instructions: Wean down on pain medication as soon as possible, only take what is needed to control pain supplement with Tylenol and Celebrex. Continued calcium citrate-vitamin D3 [Calcium Citrate + D] 315 mg-5 mcg (200 unit) tablet 2 tab PO QHS multivitamin capsule 2 cap PO DAILY mecobalamin (vitamin B12) 1,000 mcg tablet,disintegrating 1,500 mcg SL DAILY Rx Instructions: place tablet under tongue and allow to dissolve for at least30 secs before swallowing amlodipine 5 mg tablet 5 mg PO DAILY metoprolol succinate 25 mg tablet extended release 24 hr 25 mg PO DAILY pantoprazole [Protonix] 20 mg tablet,delayed release (DR/EC) 40 mg PO DAILY gabapentin 100 mg capsule 100 mg PO BID tadalafil 20 mg tablet 20 mg PO DAILY PRN (Reason: Erectile Dysfunction) Rx Instructions: administer approximately 30min before sexual activity; do not use more than 1 dose per 24hrs celecoxib [Celebrex] 200 mg Capsule 200 mg PO DAILY cholecalciferol (vitamin D3) [Vitamin D3] 10 mcg (400 unit) Capsule 10 mcg PO DAILY magnesium Tablet 1 tab PO QHS Discontinued tramadol 50 mg tablet 50 mg PO BID Label Comments: 50 MG Q AM AND 100 MG PO Q PM Referrals / Follow Up: Renzo Beatty DO [Primary Care Provider] - Disposition Disposition (needs filled in before D/C Order can be placed): Home, Self Care 08/07/22 0735<Electronically signed by Jason Fritz DO>Jason Fritz DO CC: Dr. Renzo Beatty DO ~ Signed [facility] Work Phone: 1(235) 433-813104-12-[address] Fritz [facility] August 07, 2022 7:29am Note Date/Time August 07, 2022 7:2 9am [facility] Medical Records Department [address] [place] [address] Progress Note - Orthopedic 08/07/22 0726 MR#: [id number] Acct: [id number] Name: OZIEL BURTON Rep #:[id number] : 1970 52 From: Jason Fritz DO PCP: Dr. Renzo Beatty DO Status:ADM IN Location: [facility]3 AS168-2 Subjective Subjective Seen and examined. About 5 hours of interrupted sleep. Complain of pain right knee. Was able to do stairs with physical therapy yesterday. Does not feel hispain is adequately controlled. Denies any fevers chills nausea vomit shortness of breath chest pain or dizziness. Objective Data Objective Data Vital Signs: Vital Signs Temp Pulse Resp BP Pulse Ox O2 Del Method O2 Flow Rate 97.8 F 55 L 18 141/81 H 96 Room Air 2 08/07/22 02:53 08/07/22 02:53 08/07/22 02:53 08/07/22 02:53 08/07/22 07:21 08/07/22 07:21 08/05/22 18:30 Oxygen Flow Rate (L/min) 2 Oxygen Delivery Method Room Air Weight: 255 lb 11.779 oz Body Mass Index (BMI) 37.8 Intake & Output: Intake and Output for Last 24 Hours 08/05/22 08/06/22 08/07/22 23:59 23:59 23:59 Intake Total 667.42 / 1300.75 2435.25 / 2435.25 Balance 667.42 / 1300.75 2435.25 / 2435.25 Lab / Micro Data Result Diagrams: 08/07/22 06:10 08/06/22 05:45 Labs: Laboratory Results - last 24 hr 08/07/22 06:10: WBC 7.6, RBC 4.11 L, Hgb 12.5 L, Hct 37.6 L, MCV 91.5, MCH 30.4,MCHC 33.2, RDW Std Deviation 46.0 H, RDW Coeff of Cristian 13.8, Plt Count 172, MPV 10.9 Micro: Microbiology 07/31/22 13:50 Swab (Method) Nasal Screen MRSA/MSSA - Final Physical Exam Const alert, oriented x3 and no apparent distress Extremity Extremity Narrative: Dressing clean dry intact compartment soft neurovascular intact EHL tibialis anterior gastrocsoleus intact sensation light touch palpable pedal pulses Assessment & Plan Assessment/Plan (1) S/P total knee arthroplasty: PLAN: Plan Postop day #1 right total knee arthroplasty Will increase oxycodone to 15 mg every 4 hours to control pain more adequately Continue DVT prophylaxis SCDs SANA hose Eliquis 2.5 mg twice daily PT OT weightbearing as tolerated Patient be discharged home if his pain is better controlled and tolerates physical therapy on the higher dose of oxycodone and follow-up in the office 2 weeks 08/07/22 0729 <Electronically signed by Jason Fritz DO> Cosigner Signature (if applicable): CC: ~ Signed [facility] Work Phone: 1(606) 613-482004-11-2023 Progress note Author Ezequiel Munroe [facility] August 06, 2022 3:51pm Note Date/Time August 06, 2022 12: 53pm [facility] Medical Records Department [address] [place] [address] Progress Note - Orthopedic 08/06/22 1247 MR#: [id number] Acct: [id number] Name: OZIEL BURTON Rep #:[id number] : 1970 52 From: Ezequiel GERARD PCP: Dr. Renzo Beatty, Status:ADM IN Location: [address] Subjective Subjective Patient evaluated today at bedside. At this time patient states that he feels he is doing pretty good stating that he still has quite a bit of pain in the knee. Yesterday postoperatively he states he was having pretty extreme pains which she feels got better after the block. Again, this is much improved today although still pretty moderate in nature. He is able to eat though and has beendrinking well today. He was able to get some sleep last evening. He has been taking his medications for pain as directed without any side effects or issues at this point. He has been using the ice machine regularly. He has gotten up to use the restroom as well as for physical therapy. Objective Data Objective Data Vital Signs: Vital Signs Temp Pulse Resp BP Pulse Ox O2 Del Method O2 Flow Rate 98.6 F 70 18 131/82 H 93 Room Air 2 08/06/22 08:00 08/06/22 09:21 08/06/22 08:00 08/06/22 08:00 08/06/22 08:00 08/06/22 08:00 08/05/22 18:30 Oxygen Flow Rate (L/min) 2 Oxygen Delivery Method Room Air Weight: 255 lb 11.779 oz Body Mass Index (BMI) 37.8 Intake & Output: Intake and Output for Last 24 Hours 08/04/22 08/05/22 08/06/22 23:59 23:59 23:59 Intake Total 667.42 / 1300.75 2435.25 / 2435.25 Balance 667.42 / 1300.75 2435.25 / 2435.25 Lab / Micro Data Result Diagrams: 08/06/22 05:45 08/06/22 05:45 Labs: Laboratory Results - last 24 hr 08/06/22 05:45: WBC 11.9 H, RBC 4.43 L, Hgb 13.4, Hct 40.7, MCV 91.9, MCH 30.2, MCHC 32.9, RDW Std Deviation 45.0 H, RDW Coeff of Cristian 13.3, Plt Count 211, MPV 10.6 08/06/22 05:45: Sodium 138, Potassium 4.5, Chloride 109 H, Carbon Dioxide 29.0, Anion Gap 0 L, BUN 15, Creatinine 1.03, Estim Creat Clear Calc 79.32, Est GFR (MDRD) Af Amer 97, Est GFR (MDRD) Non-Af 80, BUN/Creatinine Ratio 14.6, Glucose 118 H, Calcium 9.1 Micro: Microbiology 07/31/22 13:50 Swab (Method) Nasal Screen MRSA/MSSA - Final Radiography Diagnostic Testing: Radiology Impression Knee X-Ray 08/05/22 16:11 IMPRESSION: Expected postoperative appearance of right TKA. Electronically Signed: Gonsalo Hopper MD at 17:17 EDT Reading Location ID and State: [facility] / [place] Tel , Service support , Physical Exam Const alert, oriented x3, no apparent distress and well nourished Constitutional Narrative: Patient is sitting up in bed and is alert and is conversing without any issues. No signs of any confusion. Very appropriate affect and response. General Appearance: cooperative and well developed Resp normal respiratory effort Effort and Inspection: able to speak in complete sentences; Negative for tachypneic or respiratory distress Extremity no calf tenderness Extremity Narrative: Soft compartments throughout. No calf tenderness. Negative homans. 2+ palpable pedal pulses General Extremity: edema Skin Wound Narrative: occlussive dressing intact. No evident saturation of the larger Mepilex dressing. There is some minor discharge noted on the OpSite where the tibial arrays placed. No surrounding erythema, warmth, or other acute changes of either incision site. Neuro moves all extremities and no sensory deficits noted Neuro Narrative: Intact motor function of the knee/ankle/foot/toes. Intact sensation to light touch Psych mental status grossly normal Attitude: No agitated Mood & Affect: Negative for depressed or anxious Thought Content: No delusion(s) and No hallucination(s) Memory / Cognition: No cognition impaired Assessment & Plan Assessment/Plan (1) Status post total right knee replacement: PLAN: Patient seen today 1 day post-op right total knee arthroplasty. At this time patient appears to be doing very well without any major concerns or complaints. Patient was having moderate to sever pains directly post op at the same time has calmed significantly. Postoperatively he states that he has received morphine which did not touch his pain. He has been taking 10 mg of oxycodone states though that he did have some Dilaudid he thinks. He still has moderate pain at the same time has no signs of acute distress or discomfort noted during today's visit. He is alert and pleasantly conversive today. examination today shows occlussive dressing intact without signs of acute inflammation or infection. Compartments are soft with no signs of DVT or compartment syndrome. At this time we discussed going home today versus stayingovernight. 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 Patient is to continue with the polar ice machine while resting in the chair or the bed. He can continue with his SCDs. Patient is to keep the occlusive dressing intact for 72 hours before removing. He should monitor notify nursing of any calf pains, calf tightness/firmness or any other firmness in the lower extremity. He continue the pain medication regimen that he has been doing thus far. We will try to stick with 5 to 10 mg of oxycodone every 4-6 hours however could go up to 15 mg for severe pains. We will consider Dilaudid for any breakthrough pains if needed. And continue with p.o. intake as tolerated. Definitely want him continuing with physical therapy and Occupational Therapy while he is still here. Notify our office with any questions or concerns. 08/06/22 9662 <Electronically signed by Ezequiel GERARD> Cosigner Signature (if applicable): CC: ~ Signed [facility] Work Phone: [phone]) 862-798404-10-2023 Procedure [facility] 08-05-2022 History and physical note Author Dr. Fritz [facility] August 05, 2022 12:27pm Note Date/Time August 05, 2022 12: 27pm [facility] Medical Records Department [address] [facility] [place] [address] History & Physical Exam 08/05/22 1227 MR#: [id number] Acct: [id number] Name: JANYOZIEL PEREZ Rep #:[id number] : 1970 52 From: Jason Fritz DO PCP: Dr. Renzo Beatty, DO Status:ADM IN Location: [place] [address] History and Physical Date of Admission: 08/05/22 [facility] [address] [place] [address] [address] [place] [address] OFFICE VISIT Date of Service:? 06/03/22 MR#: [id number] Acct: [id number] Name:? DEANNAOZIEL PEREZ VEL Rep #: [id number] : 1970 ? ? Provider: Dr. Jason Fritz, DO Age/Sex:? 52/M ? ? Location: [facility] Status: Signed Intake Vital Signs ? 01/08/2213:12 06/03/2313:28 Height 5 ft 9 in 5 ft 9 in Weight: ? 264 lb BMI ? 38.9 Intake Visit Reasons:?BILATERAL KNEES Chief Complaint: bilateral knee pain Accompanied by: Self Is patient in pain?: Yes Pain scale (1-10): 2 Allergies olmesartan medoxomil [From Benicar] Allergy (Verified 04/11/22 11:59) Itching Medications calcium citrate 315 mg-vitamin D3 5 mcg (200 unit) tablet (Calcium Citrate + D) 2 tab PO QHS 04/25/20 [History Confirmed 06/03/22] multivitamin 2 cap PO DAILY 04/25/20 [History Confirmed 06/03/22] amlodipine 5 mg tablet 5 mg PO DAILY 08/04/20 [History Confirmed 06/03/22] mecobalamin (vitamin B12) 1,000 mcg disintegrating tablet,sublingual 1,500 mcg sublingual DAILY 08/04/20 [History Confirmed 06/03/22] metoprolol succinate 25 mg tablet,extended release 24 hr 25 mg PO DAILY 08/04/20[History Confirmed 06/03/22] pantoprazole 20 mg tablet,delayed release (Protonix) 40 mg PO DAILY 01/29/21 [History Confirmed 06/03/22] tramadol 50 mg tablet 50 mg PO BID 03/15/21 [History Confirmed 06/03/22] celecoxib 200 mg capsule (Celebrex) 200 mg PO DAILY 05/23/21 [History Confirmed 06/03/22] cholecalciferol (vitamin D3) 10 mcg (400 unit) capsule (Vitamin D3) mcg PO DAILY01/08/22 [History Confirmed 06/03/22] fexofenadine 180 mg tablet 180 mg PO DAILY 01/08/22 [History Confirmed 06/03/22] magnesium 1 tab PO QHS 01/08/22 [History Confirmed 06/03/22] gabapentin 100 mg capsule 100 mg PO BID 02/11/22 [History Confirmed 06/03/22] tadalafil 20 mg tablet 20 mg PO DAILY PRN 02/11/22 [History Confirmed 06/03/22] [facility] Medical History?(Updated 06/03/22 @ 15:[address] Jason Fritz, DO) Acute bronchitis, unspecified Alcohol use Arthritis Arthritis Back pain Back pain Chronic wound of extremity Contact with and (suspected) exposure to other viral communicable diseases CPAP (continuous positive airway pressure) dependence CPAP (continuous positive airway pressure) dependence Degenerative disc disease Diabetes Disorder of uvula DVT (deep venous thrombosis) Gastric reflux GERD (gastroesophageal reflux disease) Hay fever Hemorrhoids History of deep vein thrombosis History of diabetes mellitus History of echocardiogram History of hemorrhoids History of steroid therapy History of stress test HTN (hypertension) Hypertension Hypertension Kidney stones Knee pain Lab test negative for COVID-19 virus Leg cramps Obesity (BMI 35.0-39.9 without comorbidity) Obstructive sleep apnea 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 Deviated septum H/O foot surgery H/O hernia repair H/O knee surgery H/O shoulder surgery History of arthroscopic knee surgery History of gastric restrictive surgery History of shoulder surgery History of surgical removal of ganglion cyst History of tonsillectomy History of tonsillectomy History of umbilical hernia repair hx of gastric sleeve Family History? Other Breast cancer Social History?(Updated 06/03/22 @ 14:35 by Eva Mora) Smoking Status:? Current every day smoker tobacco type: cigars alcohol intake:? current alcohol intake frequency: holidays/special occasions only HPI BILATERAL KNEES Details: Parts of this documentation were recorded by a scribe, this documentation accurately reflects the service provided and the decisions made by me, Dr. Jason Fritz, DO 06/03/22 2863. OZIEL BURTON is a 52 year old M here today for BL knee pain that he has been having for a couple years. He states that one knee is not worse than the other. He had BL knee Euflexxa injections in 02/2022 which was helpful maybe until 04/2022 then his pain returned. His last steroid injection was in the left knee and this was done in 06/2021. His last steroid injection in the right knee was in 2020. He has tried and failed PT. He has right and left anterior medial knee pain. He does use knee braces at times which are somewhat helpful. Increased pain with standing up, stairs, prolonged standing. He states that even laying inbed he does have pain. Denies any family hx of RA or lupus or inflammatory conditions. Ortho Exam General General: Yes no acute distress Neurologic: Yes oriented x3 Psychologic: Yes reasonable and appropriate Right Knee Skin/Wound: No erythema, No ecchymosis and No swelling Homans Sign: No Knee ROM: Yes ROM-Extension -20 to 0 and No ROM-Flexion 0-140 (113) Examination: Yes Med jt line tenderness, Yes Lat jt line tenderness and Yes Crepitus Stability: NML: Anterior Drawer, NML: Posterior Drawer, NML: Varus 0 and NML: Varus 30 and 1+: Valgus 0 and 1+: Valgus 30 Patella Translation: 1 Patella Grind: Yes KNEE: no joint effusion patellar grind causes pain and crepitation 4mm gapping with valgus stress intact sensation throughout lower extremity scar over anterior huynh from slow healed wound from last year did require wound care purplish discoloration to foot and varicose veins brisk capillary refill 1/4 pulse posterior tibial foot cool to touch faint dorsalis pedis Left Knee Skin/Wound: Yes CDI, No ecchymosis, No erythema and No swelling Knee ROM: Yes ROM-Extension -20 to 0 and No ROM-Flexion 0-140 (118) Examination: Yes med jt line tenderness and Yes Lat jt line tenderness Stability: NML: Anterior Drawer, NML: Posterior Drawer, NML: Varus 0 and NML: Varus 30 and 1+: Valgus 0 and 1+: Valgus 30 Patella Translation: 1 Patella Grind: Yes KNEE: no joint effusion 3mm medial gapping valgus stress intact sensation to light touch foot cool to touch faint dorsalis pedis on left 1/4 pulse posterior tibial foot cool to touch faint dorsalis pedis Head: Normocephalic Atraumatic Chest: symmetrical rise, non-labored breathing, no audible wheeze Abdomen: no guarding, non-rigid Supplemental Info 05/30/2022 x-ray right knee: Advanced knee arthrosis [id number] medial compartment there is spurring noted in the lateral compartment and patellofemoral joint with subchondral cyst of the patella, varus deformity 05/30/2022 x-ray left knee: Wjvy-ho-yten medial compartment varus deformity moderate spurring patellofemoral compartment mild lateral Coding Level of Care Code Off vis,est,level 3 Diagnoses Osteoarthritis of right knee? M17.11 Left knee DJD? M17.12 Decreased pedal pulses? R09.89 Assessment and Plan Assessment and Plan (1) Osteoarthritis of right knee: ?Status:?Acute (2) Left knee DJD: ?Status:?Acute (3) Decreased pedal pulses: ?Status:?Acute Plan Reviewed x-rays of patient's BL knees. Personally reviewed x-rays. There is no obvious fracture, dislocation, or lucency noted. Patient educated that he does have advanced arthritis of the BL knees. Since he has tried and failed conservative care such as steroid injection, bracing, PT, viscosupplementation his next treatment option is to have a TKA.?Risks, benefits and alternatives of surgery reviewed including but not limited to bleeding, infection, nerve, arteryand/or tissue damage, fracture, VTE, mechanical feel of the knee, continued pain, stiffness and expected post-operative course. He is at an increased risk of developing a blood clot with his hx of blood clots in the past.?Recommended having?ankle brachial index?testing done prior to TKA to check his blood flow prior to surgery d/t his weak pulses and skin discoloration in bilateral feet.? he does have 10 steps to get into his house as he is split-level therefore I am requesting an admission for this procedure as he may require rehab before returning home and we would not be able to set him up with rehab having this scheduled as a same-day surgery.? educated on the [facility] treatment offered and he wishes to proceed with this if it is covered by insurance. Reviewed the pre-operative plans with the patient. Risks and benefits of the procedure were fullyexplained, including but not limited to infection, neurovascular injury, continued pain, arthritis, stiffness, need for further surgery, re-injury, DVT, PE, general risks of anesthesia, and loss of limb or life. The patient understands all the risks and does wish to proceed with written consent for right total knee arthroplasty. Recommended no plasma donations 4 weeks preoperatively. Follow up for iovera treatment then 2 weeks post op or sooner if pain, swelling,numbness or associated symptoms, or concerns develop.? All questions answered. Patient in agreement of plan. Tentative surgery date 07/16/2022 Plan Details Goals & Barriers: Goals Decrease pain Decrease spasm Decrease inflammation Target Due Date 01/08/22 Barriers DDD Anterolisthesis L5/S1 Dextroscoliosis 06/03/22 1522 <Electronically signed by Jason Fritz DO> Date Jason Fritz DO I have examined the patient and the H&P has been reviewed. There are no clinicalchanges since date of exam. 08/05/22 1227 <Electronically signed by Jason Fritz DO> Cosigner Signature (if applicable): CC: Dr. Jason Fritz DO; Dr. Renzo Beatty DO~ Signed [facility] Work Phone: Discharge summary Author Jason Fritz [facility] March 11, 2023 3:00pm Note Date/Time March 11, 2023 3:01pm [facility] Medical Records Department [facility] [place] [address] Instructions for Home/Discharge Instructions 03/11/23 1459 MR#: [id number] Acct: [id number] Name: OZIEL BURTON Rep #:[id number] 1 : 1970 52 From: Jason Fritz DO PCP: Dr. Renzo Beatty DO Status:REG [facility] Discharge Instructions Diet Discharge Diet: No restrictions Dressing / Incision Call your doctor if you observe: Shortness of breath and Chest pain Additional Dressing/Incision Instructions:: Encourage full knee flexion and extension regularly. Start physical therapy immediately. May shower and returnto activities as normal. Keep pain controlled with medications as discussed with Dr. Fritz in order to keep full range of motion. If you need more pain medication please call ice and elevate next 72 hours. Follow-up with Dr. Fritz and call with any questions or concerns. Follow Up Care Please Follow Up With: Jason Fritz DO When: 2 weeks Test Results: Test results from this visit will be discussed in further detail at your follow- up appointment, if applicable. Discharge Plan Admission Primary Reason for Your Visit: Left knee manipulation under [employer] Provider: Jason Fritz Primary Care Provider: Renzo Beatty Discharge Orders/Prescriptions Prescriptions: No Action calcium citrate-vitamin D3 [Calcium Citrate + D] 315 mg-5 mcg (200 unit) tablet 2 tab PO QHS multivitamin capsule 2 cap PO DAILY mecobalamin (vitamin B12) 1,000 mcg tablet,disintegrating 1,500 mcg SL DAILY Rx Instructions: place tablet under tongue and allow to dissolve for at least30 secs before swallowing amlodipine 5 mg tablet 5 mg PO DAILY metoprolol succinate 25 mg tablet extended release 24 hr 25 mg PO DAILY pantoprazole [Protonix] 20 mg tablet,delayed release (DR/EC) 40 mg PO DAILY gabapentin 100 mg capsule 100 mg PO BID aspirin [Adult Aspirin Regimen] 81 mg tablet,delayed release (DR/EC) 81 mg PO DAILY Hold Instructions: Resume on 02/12/23. celecoxib [Celebrex] 200 mg Capsule 200 mg PO BID Hold Instructions: Resume on 02/28/23. While taking anti-coagulant cholecalciferol (vitamin D3) [Vitamin D3] 10 mcg (400 unit) Capsule 10 mcg PO DAILY magnesium Tablet 1 tab PO QHS acetaminophen [acetaminophen] 500 mg tablet 1,000 mg PO Q6H PRN Qty: 100 0RF Referrals / Follow Up: Renzo Beatty DO [Primary Care Provider] - Disposition Disposition (needs filled in before D/C Order can be placed): Home, Self Care 03/11/23 1500<Electronically signed by Jason Fritz DO>Jason Fritz DO CC: Dr. Renzo Beatty DO ~ Signed [facility] Work Phone: Evaluation note* Diagnosis Onset Date Resolution Status Encounter for screening for other viral diseases acute Left ear impacted cerumen ac [place] Left otitis media acute Segmental and somatic dysfunction of cervical region acute Segmental and somatic dysfunction of lumbar region acute Segmental and somatic dysfunction of pelvic region acute Segmental and somatic dysfunction of thoracic region acute DDD (degenerative disc disease) chronic Segmental and somatic dysfunction of cervical region acute Segmental and somatic dysfunction of lumbar region acute Segmental and somatic dysfunction of pelvic region acute Segmental and somatic dysfunction of thoracic region acute DDD (degenerative disc disease) chronic Contusion of right lower leg, initial encounter acute Infected abrasion of skin of right lower leg acute Segmental and somatic dysfunction of cervical region acute Segmental and somatic dysfunction of lumbar region acute Segmental and somatic dysfunction of pelvic region acute Segmental and somatic dysfunction of thoracic region acute DDD (degenerative disc disease) chronic Segmental and somatic dysfunction of cervical region acute Segmental and somatic dysfunction of lumbar region acute Segmental and somatic dysfunction of pelvic region acute Segmental and somatic dysfunction of thoracic region acute DDD (degenerative disc disease) chronic Segmental and somatic dysfunction of cervical region acute Segmental and somatic dysfunction of lumbar region acute Segmental and somatic dysfunction of pelvic region acute Segmental and somatic dysfunction of thoracic region acute DDD (degenerative disc disease) chronic Arthritis acute CPAP (continuous positive airway pressure) dependence acute Degenerative disc disease ac [place] GERD (gastroesophageal reflux disease) acute History of arthroscopic knee surgery acute History of deep vein thrombosis acute History of diabetes mellitus acute History of gastric restrictive surgery acute History of hemorrhoids acute History of shoulder surgery acute History of tonsillectomy acu te History of umbilical hernia repair acute Obesity (BMI 35.0-39.9 without comorbidity) acute Obstructive sleep apnea acut e Postphlebitic syndrome with both ulcer and inflammatio n acute Scoliosis acute Traumatic open wound of right lower leg acute Varicose veins with inflammation acute Wound of right leg acute Chronic wound of extremity c hronic Hypertension chronic [facility] Work Phone: Evaluation note* Diagnosis Onset Date Resolution Status Segmental and somatic dysfunction of cervical region acute Segmental and somatic dysfunction of lumbar region acute Segmental and somatic dysfunction of pelvic region acute Segmental and somatic dysfunction of thoracic region acute DDD (degenerative disc disease) chronic Segmental and somatic dysfunction of cervical region acute Segmental and somatic dysfunction of lumbar region acute Segmental and somatic dysfunction of pelvic region acute Segmental and somatic dysfunction of thoracic region acute DDD (degenerative disc disease) chronic Contusion of right lower leg, initial encounter acute Infected abrasion of skin of right lower leg acute Segmental and somatic dysfunction of cervical region acute Segmental and somatic dysfunction of lumbar region acute Segmental and somatic dysfunction of pelvic region acute Segmental and somatic dysfunction of thoracic region acute DDD (degenerative disc disease) chronic Segmental and somatic dysfunction of cervical region acute Segmental and somatic dysfunction of lumbar region acute Segmental and somatic dysfunction of pelvic region acute Segmental and somatic dysfunction of thoracic region acute DDD (degenerative disc disease) chronic Segmental and somatic dysfunction of cervical region acute Segmental and somatic dysfunction of lumbar region acute Segmental and somatic dysfunction of pelvic region acute Segmental and somatic dysfunction of thoracic region acute DDD (degenerative disc disease) chronic Arthritis acute CPAP (continuous positive airway pressure) dependence acute Degenerative disc disease ac [place] GERD (gastroesophageal reflux disease) acute History of arthroscopic knee surgery acute History of deep vein thrombosis acute History of diabetes mellitus acute History of gastric restrictive surgery acute History of hemorrhoids acute History of shoulder surgery acute History of tonsillectomy acu te History of umbilical hernia repair acute Obesity (BMI 35.0-39.9 without comorbidity) acute Obstructive sleep apnea acut e Postphlebitic syndrome with both ulcer and inflammatio n acute Scoliosis acute Traumatic open wound of right lower leg acute Varicose veins with inflammation acute Wound of right leg acute Chronic wound of extremity c hronic Hypertension chronic Segmental and somatic dysfunction of cervical region acute Segmental and somatic dysfunction of lumbar region acute Segmental and somatic dysfunction of pelvic region acute Segmental and somatic dysfunction of thoracic region acute DDD (degenerative disc disease) chronic Arthritis acute CPAP (continuous positive airway pressure) dependence acute Degenerative disc disease ac [place] GERD (gastroesophageal reflux disease) acute History of arthroscopic knee surgery acute History of deep vein thrombosis acute History of diabetes mellitus acute History of gastric restrictive surgery acute History of hemorrhoids acute History of shoulder surgery acute History of tonsillectomy acu te History of umbilical hernia repair acute Obesity (BMI 35.0-39.9 without comorbidity) acute Obstructive sleep apnea acut e Postphlebitic syndrome with both ulcer and inflammatio n acute Scoliosis acute Traumatic open wound of right lower leg acute Varicose veins with inflammation acute Wound of right leg acute Chronic wound of extremity c hronic Hypertension chronic Segmental and somatic dysfunction of cervical region acute Segmental and somatic dysfunction of lumbar region acute Segmental and somatic dysfunction of pelvic region acute Segmental and somatic dysfunction of thoracic region acute DDD (degenerative disc disease) chronic [facility] Work Phone: Evaluation note* Diagnosis Onset Date Resolution Status Segmental and somatic dysfunction of cervical region acute Segmental and somatic dysfunction of lumbar region acute Segmental and somatic dysfunction of pelvic region acute Segmental and somatic dysfunction of thoracic region acute DDD (degenerative disc disease) chronic Segmental and somatic dysfunction of cervical region acute Segmental and somatic dysfunction of lumbar region acute Segmental and somatic dysfunction of pelvic region acute Segmental and somatic dysfunction of thoracic region acute DDD (degenerative disc disease) chronic Contusion of right lower leg, initial encounter acute Infected abrasion of skin of right lower leg acute Segmental and somatic dysfunction of cervical region acute Segmental and somatic dysfunction of lumbar region acute Segmental and somatic dysfunction of pelvic region acute Segmental and somatic dysfunction of thoracic region acute DDD (degenerative disc disease) chronic Segmental and somatic dysfunction of cervical region acute Segmental and somatic dysfunction of lumbar region acute Segmental and somatic dysfunction of pelvic region acute Segmental and somatic dysfunction of thoracic region acute DDD (degenerative disc disease) chronic Segmental and somatic dysfunction of cervical region acute Segmental and somatic dysfunction of lumbar region acute Segmental and somatic dysfunction of pelvic region acute Segmental and somatic dysfunction of thoracic region acute DDD (degenerative disc disease) chronic Arthritis acute CPAP (continuous positive airway pressure) dependence acute Degenerative disc disease ac [place] GERD (gastroesophageal reflux disease) acute History of arthroscopic knee surgery acute History of deep vein thrombosis acute History of diabetes mellitus acute History of gastric restrictive surgery acute History of hemorrhoids acute History of shoulder surgery acute History of tonsillectomy acu te History of umbilical hernia repair acute Obesity (BMI 35.0-39.9 without comorbidity) acute Obstructive sleep apnea acut e Postphlebitic syndrome with both ulcer and inflammatio n acute Scoliosis acute Traumatic open wound of right lower leg acute Varicose veins with inflammation acute Wound of right leg acute Chronic wound of extremity c hronic Hypertension chronic Segmental and somatic dysfunction of cervical region acute Segmental and somatic dysfunction of lumbar region acute Segmental and somatic dysfunction of pelvic region acute Segmental and somatic dysfunction of thoracic region acute DDD (degenerative disc disease) chronic Segmental and somatic dysfunction of cervical region acute Segmental and somatic dysfunction of lumbar region acute Segmental and somatic dysfunction of pelvic region acute Segmental and somatic dysfunction of thoracic region acute DDD (degenerative disc disease) chronic Arthritis acute CPAP (continuous positive airway pressure) dependence acute Degenerative disc disease ac [place] GERD (gastroesophageal reflux disease) acute History of arthroscopic knee surgery acute History of deep vein thrombosis acute History of diabetes mellitus acute History of gastric restrictive surgery acute History of hemorrhoids acute History of shoulder surgery acute History of tonsillectomy acu te History of umbilical hernia repair acute Obesity (BMI 35.0-39.9 without comorbidity) acute Obstructive sleep apnea acut e Postphlebitic syndrome with both ulcer and inflammatio n acute Scoliosis acute Traumatic open wound of right lower leg acute Varicose veins with inflammation acute Wound of right leg acute Chronic wound of extremity c hronic Hypertension chronic [facility] Work Phone: Evaluation note* Diagnosis Onset Date Resolution Status Segmental and somatic dysfunction of cervical region acute Segmental and somatic dysfunction of lumbar region acute Segmental and somatic dysfunction of pelvic region acute Segmental and somatic dysfunction of thoracic region acute DDD (degenerative disc disease) chronic Segmental and somatic dysfunction of cervical region acute Segmental and somatic dysfunction of lumbar region acute Segmental and somatic dysfunction of pelvic region acute Segmental and somatic dysfunction of thoracic region acute DDD (degenerative disc disease) chronic Contusion of right lower leg, initial encounter acute Infected abrasion of skin of right lower leg acute Segmental and somatic dysfunction of cervical region acute Segmental and somatic dysfunction of lumbar region acute Segmental and somatic dysfunction of pelvic region acute Segmental and somatic dysfunction of thoracic region acute DDD (degenerative disc disease) chronic Segmental and somatic dysfunction of cervical region acute Segmental and somatic dysfunction of lumbar region acute Segmental and somatic dysfunction of pelvic region acute Segmental and somatic dysfunction of thoracic region acute DDD (degenerative disc disease) chronic Segmental and somatic dysfunction of cervical region acute Segmental and somatic dysfunction of lumbar region acute Segmental and somatic dysfunction of pelvic region acute Segmental and somatic dysfunction of thoracic region acute DDD (degenerative disc disease) chronic Arthritis acute CPAP (continuous positive airway pressure) dependence acute Degenerative disc disease ac [place] GERD (gastroesophageal reflux disease) acute History of arthroscopic knee surgery acute History of deep vein thrombosis acute History of diabetes mellitus acute History of gastric restrictive surgery acute History of hemorrhoids acute History of shoulder surgery acute History of tonsillectomy acu te History of umbilical hernia repair acute Obesity (BMI 35.0-39.9 without comorbidity) acute Obstructive sleep apnea acut e Postphlebitic syndrome with both ulcer and inflammatio n acute Scoliosis acute Traumatic open wound of right lower leg acute Varicose veins with inflammation acute Wound of right leg acute Chronic wound of extremity c hronic Hypertension chronic Segmental and somatic dysfunction of cervical region acute Segmental and somatic dysfunction of lumbar region acute Segmental and somatic dysfunction of pelvic region acute Segmental and somatic dysfunction of thoracic region acute DDD (degenerative disc disease) chronic Segmental and somatic dysfunction of cervical region acute Segmental and somatic dysfunction of lumbar region acute Segmental and somatic dysfunction of pelvic region acute Segmental and somatic dysfunction of thoracic region acute DDD (degenerative disc disease) chronic Arthritis acute CPAP (continuous positive airway pressure) dependence acute Degenerative disc disease ac [place] GERD (gastroesophageal reflux disease) acute History of arthroscopic knee surgery acute History of deep vein thrombosis acute History of diabetes mellitus acute History of gastric restrictive surgery acute History of hemorrhoids acute History of shoulder surgery acute History of tonsillectomy acu te History of umbilical hernia repair acute Obesity (BMI 35.0-39.9 without comorbidity) acute Obstructive sleep apnea acut e Postphlebitic syndrome with both ulcer and inflammatio n acute Scoliosis acute Traumatic open wound of right lower leg acute Varicose veins with inflammation acute Wound of right leg acute Chronic wound of extremity c hronic Hypertension chronic Osteoarthritis of knees, bilateral acute Osteoarthritis of knees, bilateral acute Osteoarthritis of knees, bilateral acute Arthritis acute CPAP (continuous positive airway pressure) dependence acute Degenerative disc disease ac [place] GERD (gastroesophageal reflux disease) acute History of arthroscopic knee surgery acute History of deep vein thrombosis acute History of diabetes mellitus acute History of gastric restrictive surgery acute History of hemorrhoids acute History of shoulder surgery acute History of tonsillectomy acu te History of umbilical hernia repair acute Obesity (BMI 35.0-39.9 without comorbidity) acute Obstructive sleep apnea acut e Postphlebitic syndrome with both ulcer and inflammatio n acute Scoliosis acute Traumatic open wound of right lower leg acute Varicose veins with inflammation acute Wound of right leg acute Chronic wound of extremity c hronic Hypertension chronic [facility] Work Phone: Evaluation note* Diagnosis Onset Date Resolution Status Osteoarthritis of knees, bilateral acute Osteoarthritis of knees, bilateral acute Osteoarthritis of knees, bilateral acute Arthritis acute CPAP (continuous positive airway pressure) dependence acute Degenerative disc disease ac [place] GERD (gastroesophageal reflux disease) acute History of arthroscopic knee surgery acute History of deep vein thrombosis acute History of gastric restrictive surgery acute History of hemorrhoids acute History of shoulder surgery acute History of tonsillectomy acu te History of umbilical hernia repair acute Obesity (BMI 35.0-39.9 without comorbidity) acute Obstructive sleep apnea acut e Postphlebitic syndrome with both ulcer and inflammatio n acute Traumatic open wound of right lower leg acute Varicose veins with inflammation acute Chronic wound of extremity c hronic Hypertension chronic Acute bronchitis, unspecified acute Contact with and (suspected) exposure to other viral communicable diseases acute Osteoarthritis of knees, bilateral acute Decreased pedal pulses acute Left knee DJD acute Osteoarthritis of right knee acute [facility] Work Phone: Evaluation note* Diagnosis Onset Date Resolution Status Acute bronchitis, unspecified acute Contact with and (suspected) exposure to other viral communicable diseases acute Osteoarthritis of knees, bilateral acute Decreased pedal pulses acute Left knee DJD acute Osteoarthritis of right knee acute [facility] Work Phone: Evaluation note* Diagnosis Onset Date Resolution Status Acute bronchitis, unspecified acute Contact with and (suspected) exposure to other viral communicable diseases acute Osteoarthritis of knees, bilateral acute Decreased pedal pulses acute Left knee DJD acute Osteoarthritis of right knee acute Osteoarthritis of right knee acute Other acute postprocedural pain acute S/P total knee arthroplasty acute Status post total right knee replacement acute [facility] Work Phone: Evaluation note* Diagnosis Onset Date Resolution Status Osteoarthritis of right knee acute Other acute postprocedural pain acute S/P total knee arthroplasty acute Orthopedic aftercare acute Other acute postprocedural pain acute S/P total knee arthroplasty acute Segmental and somatic dysfunction of cervical region acute Segmental and somatic dysfunction of lumbar region acute Segmental and somatic dysfunction of pelvic region acute Segmental and somatic dysfunction of thoracic region acute DDD (degenerative disc disease) chronic Knee stiffness noneactive Spondylolisthesis acute Orthopedic aftercare acute [facility] Work Phone: Evaluation note* Diagnosis Onset Date Resolution Status Other acute postprocedural pain acute S/P total knee arthroplasty acute Orthopedic aftercare acute Other acute postprocedural pain acute S/P total knee arthroplasty acute Segmental and somatic dysfunction of cervical region acute Segmental and somatic dysfunction of lumbar region acute Segmental and somatic dysfunction of pelvic region acute Segmental and somatic dysfunction of thoracic region acute DDD (degenerative disc disease) chronic Knee stiffness noneactive Spondylolisthesis acute Orthopedic aftercare acute Spondylolisthesis acute Left knee DJD acute [facility] Work Phone: Evaluation note* Diagnosis Onset Date Resolution Status Orthopedic aftercare acute Other acute postprocedural pain acute S/P total knee arthroplasty acute Segmental and somatic dysfunction of cervical region acute Segmental and somatic dysfunction of lumbar region acute Segmental and somatic dysfunction of pelvic region acute Segmental and somatic dysfunction of thoracic region acute DDD (degenerative disc disease) chronic Knee stiffness noneactive Spondylolisthesis acute Orthopedic aftercare acute Spondylolisthesis acute Left knee DJD acute [facility] Work Phone: Evaluation note* Diagnosis Onset Date Resolution Status Left knee DJD acute Left knee DJD acute Left knee pain acute Orthopedic aftercare acute Other acute postprocedural pain acute S/P total knee arthroplasty acute Orthopedic aftercare acute Arthrofibrosis of total knee arthroplasty acute S/P total knee arthroplasty acute Stiffness of left knee nonea ctive [facility] Work Phone: Evaluation note* Diagnosis Onset Date Resolution Status Left knee DJD acute Left knee pain acute Orthopedic aftercare acute Other acute postprocedural pain acute S/P total knee arthroplasty acute Orthopedic aftercare acute Arthrofibrosis of total knee arthroplasty acute S/P total knee arthroplasty acute Stiffness of left knee nonea ctive Strain of right hand acute [facility] Work Phone: Evaluation note* Diagnosis Onset Date Resolution Status Orthopedic aftercare acute Other acute postprocedural pain acute S/P total knee arthroplasty acute Orthopedic aftercare acute Arthrofibrosis of total knee arthroplasty acute S/P total knee arthroplasty acute Stiffness of left knee nonea ctive Strain of right hand acute Orthopedic aftercare acute [facility] Work Phone: Evaluation note* Diagnosis Onset Date Resolution Status Orthopedic aftercare acute Arthrofibrosis of total knee arthroplasty acute S/P total knee arthroplasty acute Stiffness of left knee nonea ctive Strain of right hand acute Orthopedic aftercare acute [facility] Work Phone: Evaluation note* Diagnosis Onset Date Resolution Status Strain of right hand acute Orthopedic aftercare acute Degenerative disc disease, cervical acute Tendinitis of both rotator cuffs acute [facility] Work Phone: Evaluation note* Diagnosis Onset Date Resolution Status Degenerative disc disease, cervical acute Tendinitis of both rotator cuffs acute [facility] Work Phone: Hospital Discharge instructions Additional Instructions Use the walking boot when you are up and around. Ice. Follow-up outpatient [facility] Work Phone: Progress note Author Ezequiel Munroe [facility] August 08, 2022 4:07pm Note Date/Time August 08, 2022 4:0 0pm [facility] Medical Records Department [address] [place] [id number] Progress Note - Orthopedic 08/08/22 1554 MR#: [id number] Acct: [id number] Name: OZIEL BURTON Rep #:[id number] : 1970 52 From: Ezequiel GERARD PCP: Dr. Renzo Beatty, DO Status:ADM IN Location: [place] [address] Subjective Subjective Patient states that he has seen a significant improvement in his pain today. He did a lot better with PT/OT and after discussion he states that he is ready to go home. This was also discussed with his and they are all in agreement forhim to go home. Objective Data Objective Data Vital Signs: Vital Signs Temp Pulse Resp BP Pulse Ox O2 Del Method O2 Flow Rate 98.1 F 65 16 133/76 H 99 Room Air 2 08/08/22 15:10 08/08/22 15:10 08/08/22 15:10 08/08/22 15:10 08/08/22 15:10 08/08/22 15:10 08/05/22 18:30 Oxygen Flow Rate (L/min) 2 Oxygen Delivery Method Room Air Weight: 255 lb 11.779 oz Body Mass Index (BMI) 37.8 Intake & Output: Intake and Output for Last 24 Hours 08/06/22 08/07/22 08/08/22 23:59 23:59 23:59 Intake Total 2435.25 / 2435.25 Balance 2435.25 / 2435.25 Lab / Micro Data Result Diagrams: 08/08/22 06:25 08/06/22 05:45 Labs: Laboratory Results - last 24 hr 08/08/22 06:25: WBC 7.8, RBC 4.17 L, Hgb 12.7 L, Hct 38.0 L, MCV 91.1, MCH 30.5,MCHC 33.4, RDW Std Deviation 45.1 H, RDW Coeff of Cristian 13.5, Plt Count 166, MPV 10.3 Micro: Microbiology 07/31/22 13:50 Swab (Method) Nasal Screen MRSA/MSSA - Final Physical Exam Const alert, oriented x3 and no apparent distress General Appearance: cooperative and well developed Resp normal respiratory effort Effort and Inspection: able to speak in complete sentences Extremity no calf tenderness Extremity Narrative: Occlusive dressing remains intact and is clean and dry. Continues to have soft compartments and no calf pains or DVT signs. Normal sensation to light touch throughout the extremity. Intact motor function of ankle/foot/ toes with intact dorsiflexion and plantart flexion as well as EHL, and tibatialis anterior. General Extremity: edema right lower extremity mild Skin Wound Narrative: large incisional dressing dry without saturation. So minor dried blood/saturation on the distal tibial wound (array placement.) No surrounding erythema or signs of acute inflammation/infection. Psych mental status grossly normal Assessment & Plan Assessment/Plan (1) Other acute postprocedural pain: (2) S/P total knee arthroplasty: PLAN: Plan Patient seen today on surgical floor day 3 postop from right total knee arthroplasty. Patient underwent procedure on Friday for 08-05-22. Procedure wasperformed without complication. Patient was transferred up to [facility] where stay was unremarkable without any concerns. Patient did really well day 1 with some mild complaints of pain. He had a little bit of increase in pain on day 2 and was thought that he would need to be transferred to transitional care for pain control however today patient is seen significant improvement in his pains and after going through physical therapy as well as other physical activities today states that he is ready to go home rather than to transitional care. At this time patient has physical exam findings consistent with day 3 postop without any signs of acute inflammation or infection and he also has no signs of DVT. Discharge instructions will be given for patient. 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 He can notify our office with any other questions or concerns. We did discuss changing the dressing though after 72 hours postop prior to his first shower. Can apply ABD pad/nonadherent dressing over the wound held in place with the compression stockings. I would continue the compression stockings at least until 2-week postop check. Patient should wash this daily with soap and water. He does not need to use topical antibacterial. Continue icing daily using the polar ice which she has been doing regularly. He needs to make sure he is doing ankle pumps regularly and then also make sure that he is doing range of motion as discussed with physical therapy. He currently does have a pillow under his knee which we did explain heneeds to make sure that he is not having a pillow under knee all the time and that this can make getting full extension more difficult. Again notify with anyquestions or concerns. This note was generated with [employer] dictation software. It may contain incorrectwords, spelling, and punctuation that were not noted in checking the note beforesigning. 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 Advance Directive(s) 09/02/2017 5:40 AM Advance Directive Response Recorded Date/ Time Advance Directives Yes May 23, 2016 9:13am Living Will No May 23 11:47am Power of Seasonal Package Handler No May 23, 2021 11:47am Advance Directive Response Recorded Date/ Time Advance Directives Yes May 23, 2016 8:13am Living Will No May 23 10:47am Power of Seasonal Package Handler No May 23, 2021 10:47am Advance Directive Response Recorded Date/ Time Advance Directives Yes May 23, 2016 9:13am Living Will No August 05, 2022 6:30pm Power of Seasonal Package Handler No August 05 6:30pm Advance Directive Response Recorded Date/ Time Name of Medical Power of Seasonal Package Handler IRENE September 17, 2022 12:26pm Advance Directives Yes September 06 10:09am Living Will Yes September 17, 2022 1 2:26pm Power of Seasonal Package Handler Yes September 17, 2022 12:26pm Advance Directive Response Recorded Date/ Time Name of Medical Power of Seasonal Package Handler -Irene January 28, 2023 11:47am Name of Medical Power of Seasonal Package Handler March 10, 2023 11:58am Advance Directives Yes September 06 9:09am Living Will Yes March 10, 023 11:58am Power of Seasonal Package Handler Yes March 10, 2023 11:58am Advance Directive Response Recorded Date/ Time Advance Directives Yes September 06 9:09am Living Will No May 26 12:56pm Power of Seasonal Package Handler No May 26, 2023 12:56pm Name of Medical Power of Seasonal Package Handler March 10, 2023 11:58am Advance Directive Response Recorded Date/ Time Advance Directives Yes September 06 10:09am Living Will No May 26 1:56pm Power of Seasonal Package Handler No May 26, 2023 1:56pm Advance Directive Response Recorded Date/ Time Advance Directives Yes September 06 10:09am Living Will No August 23, 2023 1:32pm Power of Seasonal Package Handler No August 22 1:32pm Advance Directive Response Recorded Date/ Time Living Will Yes June 21 6:04pm Do you have a Healthcare Power of Seasonal Package Handler? Yes June 21, 2024 6:04pm Name of Medical Power of Seasonal Package Handler June 21, 2024 6:04pm Living Will Yes February 02 10:05am Do you have a Healthcare Power of Seasonal Package Handler? Yes February 03, 2024 10:05am Living Will Yes March 29 9:30am Do you have a Healthcare Power of Seasonal Package Handler? Yes March 29, 2024 9:30am Name of Medical Power of Seasonal Package Handler IRENE March 29, 2024 9:30am Advance Directives Yes September 06 10:09am Advance Directive Response Recorded Date/ Time Living Will Yes June 21, 6:04pm Do you have a Healthcare Power of Seasonal Package Handler? Yes June 21, 2024 6:04pm Name of Medical Power of Seasonal Package Handler June 21, 2024 6:04pm Advance Directives Yes September 06 10:09am Advance Directive Response Recorded Date/ Time Advance Directives Yes September 06 10:09am Chief Complaint and Reason for Visit Chief Complaint COLD SYMPTOMS/BILATE RAL EAR PAIN est care Back pain WOUND ON R LEG Back pain Back pain Back pain wound Reason for Visit Encounter for screen ing for other viral diseases Left ear impacted cerumen Left otitis media Segmental and somatic dysfunction of cervical region Segmental and somatic dysfunction of lumbar region Segmental and somatic dysfunction of pelvic region Segmental and somatic dysfunction of thoracic region DDD (degenerative disc disease) Segmental and somatic dysfunction of cervical region Segmental and somatic dysfunction of lumbar region Segmental and somatic dysfunction of pelvic region Segmental and somatic dysfunction of thoracic region DDD (degenerative disc disease) Contusion of right lower leg, initial encounter Infected abrasion of skin of right lower leg Segmental and somatic dysfunction of cervical region Segmental and somatic dysfunction of lumbar region Segmental and somatic dysfunction of pelvic region Segmental and somatic dysfunction of thoracic region DDD (degenerative disc disease) Segmental and somatic dysfunction of cervical region Segmental and somatic dysfunction of lumbar region Segmental and somatic dysfunction of pelvic region Segmental and somatic dysfunction of thoracic region DDD (degenerative disc disease) Segmental and somatic dysfunction of cervical region Segmental and somatic dysfunction of lumbar region Segmental and somatic dysfunction of pelvic region Segmental and somatic dysfunction of thoracic region DDD (degenerative disc disease) Arthritis CPAP (continuous positive airway pressure) dependence Degenerative disc disease GERD (gastroesophageal reflux disease) History of arthroscopic knee surgery History of deep vein thrombosis History of diabetes mellitus History of gastric restrictive surgery History of hemorrhoids History of shoulder surgery History of tonsillectomy History of umbilical hernia repair Obesity (BMI 35.0-39.9 without comorbidity) Obstructive sleep apnea 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 Scoliosis Traumatic open wound of right lower leg Varicose veins with inflammation Wound of right leg Chronic wound of extremity Hypertension Chief Complaint est care Back pain WOUND ON R LEG Back pain Back pain Back pain wound Back pain wound Back pain Reason for Visit Segmental and somati c dysfunction of cervical region Segmental and somatic dysfunction of lumbar region Segmental and somatic dysfunction of pelvic region Segmental and somatic dysfunction of thoracic region DDD (degenerative disc disease) Segmental and somatic dysfunction of cervical region Segmental and somatic dysfunction of lumbar region Segmental and somatic dysfunction of pelvic region Segmental and somatic dysfunction of thoracic region DDD (degenerative disc disease) Contusion of right lower leg, initial encounter Infected abrasion of skin of right lower leg Segmental and somatic dysfunction of cervical region Segmental and somatic dysfunction of lumbar region Segmental and somatic dysfunction of pelvic region Segmental and somatic dysfunction of thoracic region DDD (degenerative disc disease) Segmental and somatic dysfunction of cervical region Segmental and somatic dysfunction of lumbar region Segmental and somatic dysfunction of pelvic region Segmental and somatic dysfunction of thoracic region DDD (degenerative disc disease) Segmental and somatic dysfunction of cervical region Segmental and somatic dysfunction of lumbar region Segmental and somatic dysfunction of pelvic region Segmental and somatic dysfunction of thoracic region DDD (degenerative disc disease) Arthritis CPAP (continuous positive airway pressure) dependence Degenerative disc disease GERD (gastroesophageal reflux disease) History of arthroscopic knee surgery History of deep vein thrombosis History of diabetes mellitus History of gastric restrictive surgery History of hemorrhoids History of shoulder surgery History of tonsillectomy History of umbilical hernia repair Obesity (BMI 35.0-39.9 without comorbidity) Obstructive sleep apnea 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 Scoliosis Traumatic open wound of right lower leg Varicose veins with inflammation Wound of right leg Chronic wound of extremity Hypertension Segmental and somatic dysfunction of cervical region Segmental and somatic dysfunction of lumbar region Segmental and somatic dysfunction of pelvic region Segmental and somatic dysfunction of thoracic region DDD (degenerative disc disease) Arthritis CPAP (continuous positive airway pressure) dependence Degenerative disc disease GERD (gastroesophageal reflux disease) History of arthroscopic knee surgery History of deep vein thrombosis History of diabetes mellitus History of gastric restrictive surgery History of hemorrhoids History of shoulder surgery History of tonsillectomy History of umbilical hernia repair Obesity (BMI 35.0-39.9 without comorbidity) Obstructive sleep apnea 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 Scoliosis Traumatic open wound of right lower leg Varicose veins with inflammation Wound of right leg Chronic wound of extremity Hypertension Segmental and somatic dysfunction of cervical region Segmental and somatic dysfunction of lumbar region Segmental and somatic dysfunction of pelvic region Segmental and somatic dysfunction of thoracic region DDD (degenerative disc disease) Chief Complaint est care Back pain WOUND ON R LEG Back pain Back pain Back pain wound Back pain Back pain wound Reason for Visit Segmental and somati c dysfunction of cervical region Segmental and somatic dysfunction of lumbar region Segmental and somatic dysfunction of pelvic region Segmental and somatic dysfunction of thoracic region DDD (degenerative disc disease) Segmental and somatic dysfunction of cervical region Segmental and somatic dysfunction of lumbar region Segmental and somatic dysfunction of pelvic region Segmental and somatic dysfunction of thoracic region DDD (degenerative disc disease) Contusion of right lower leg, initial encounter Infected abrasion of skin of right lower leg Segmental and somatic dysfunction of cervical region Segmental and somatic dysfunction of lumbar region Segmental and somatic dysfunction of pelvic region Segmental and somatic dysfunction of thoracic region DDD (degenerative disc disease) Segmental and somatic dysfunction of cervical region Segmental and somatic dysfunction of lumbar region Segmental and somatic dysfunction of pelvic region Segmental and somatic dysfunction of thoracic region DDD (degenerative disc disease) Segmental and somatic dysfunction of cervical region Segmental and somatic dysfunction of lumbar region Segmental and somatic dysfunction of pelvic region Segmental and somatic dysfunction of thoracic region DDD (degenerative disc disease) Arthritis CPAP (continuous positive airway pressure) dependence Degenerative disc disease GERD (gastroesophageal reflux disease) History of arthroscopic knee surgery History of deep vein thrombosis History of diabetes mellitus History of gastric restrictive surgery History of hemorrhoids History of shoulder surgery History of tonsillectomy History of umbilical hernia repair Obesity (BMI 35.0-39.9 without comorbidity) Obstructive sleep apnea 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 Scoliosis Traumatic open wound of right lower leg Varicose veins with inflammation Wound of right leg Chronic wound of extremity Hypertension Segmental and somatic dysfunction of cervical region Segmental and somatic dysfunction of lumbar region Segmental and somatic dysfunction of pelvic region Segmental and somatic dysfunction of thoracic region DDD (degenerative disc disease) Segmental and somatic dysfunction of cervical region Segmental and somatic dysfunction of lumbar region Segmental and somatic dysfunction of pelvic region Segmental and somatic dysfunction of thoracic region DDD (degenerative disc disease) Arthritis CPAP (continuous positive airway pressure) dependence Degenerative disc disease GERD (gastroesophageal reflux disease) History of arthroscopic knee surgery History of deep vein thrombosis History of diabetes mellitus History of gastric restrictive surgery History of hemorrhoids History of shoulder surgery History of tonsillectomy History of umbilical hernia repair Obesity (BMI 35.0-39.9 without comorbidity) Obstructive sleep apnea 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 Scoliosis Traumatic open wound of right lower leg Varicose veins with inflammation Wound of right leg Chronic wound of extremity Hypertension Chief Complaint est care Back pain WOUND ON R LEG Back pain Back pain Back pain wound Back pain Back pain wound bilat knees bilat knees bilat knees wound Reason for Visit Segmental and somati c dysfunction of cervical region Segmental and somatic dysfunction of lumbar region Segmental and somatic dysfunction of pelvic region Segmental and somatic dysfunction of thoracic region DDD (degenerative disc disease) Segmental and somatic dysfunction of cervical region Segmental and somatic dysfunction of lumbar region Segmental and somatic dysfunction of pelvic region Segmental and somatic dysfunction of thoracic region DDD (degenerative disc disease) Contusion of right lower leg, initial encounter Infected abrasion of skin of right lower leg Segmental and somatic dysfunction of cervical region Segmental and somatic dysfunction of lumbar region Segmental and somatic dysfunction of pelvic region Segmental and somatic dysfunction of thoracic region DDD (degenerative disc disease) Segmental and somatic dysfunction of cervical region Segmental and somatic dysfunction of lumbar region Segmental and somatic dysfunction of pelvic region Segmental and somatic dysfunction of thoracic region DDD (degenerative disc disease) Segmental and somatic dysfunction of cervical region Segmental and somatic dysfunction of lumbar region Segmental and somatic dysfunction of pelvic region Segmental and somatic dysfunction of thoracic region DDD (degenerative disc disease) Arthritis CPAP (continuous positive airway pressure) dependence Degenerative disc disease GERD (gastroesophageal reflux disease) History of arthroscopic knee surgery History of deep vein thrombosis History of diabetes mellitus History of gastric restrictive surgery History of hemorrhoids History of shoulder surgery History of tonsillectomy History of umbilical hernia repair Obesity (BMI 35.0-39.9 without comorbidity) Obstructive sleep apnea 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 Scoliosis Traumatic open wound of right lower leg Varicose veins with inflammation Wound of right leg Chronic wound of extremity Hypertension Segmental and somatic dysfunction of cervical region Segmental and somatic dysfunction of lumbar region Segmental and somatic dysfunction of pelvic region Segmental and somatic dysfunction of thoracic region DDD (degenerative disc disease) Segmental and somatic dysfunction of cervical region Segmental and somatic dysfunction of lumbar region Segmental and somatic dysfunction of pelvic region Segmental and somatic dysfunction of thoracic region DDD (degenerative disc disease) Arthritis CPAP (continuous positive airway pressure) dependence Degenerative disc disease GERD (gastroesophageal reflux disease) History of arthroscopic knee surgery History of deep vein thrombosis History of diabetes mellitus History of gastric restrictive surgery History of hemorrhoids History of shoulder surgery History of tonsillectomy History of umbilical hernia repair Obesity (BMI 35.0-39.9 without comorbidity) Obstructive sleep apnea 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 Scoliosis Traumatic open wound of right lower leg Varicose veins with inflammation Wound of right leg Chronic wound of extremity Hypertension Osteoarthritis of knees, bilateral Osteoarthritis of knees, bilateral Osteoarthritis of knees, bilateral Arthritis CPAP (continuous positive airway pressure) dependence Degenerative disc disease GERD (gastroesophageal reflux disease) History of arthroscopic knee surgery History of deep vein thrombosis History of diabetes mellitus History of gastric restrictive surgery History of hemorrhoids History of shoulder surgery History of tonsillectomy History of umbilical hernia repair Obesity (BMI 35.0-39.9 without comorbidity) Obstructive sleep apnea 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 Scoliosis Traumatic open wound of right lower leg Varicose veins with inflammation Wound of right leg Chronic wound of extremity Hypertension Chief Complaint bilat knees bilat knees bilat knees wound COUGH/CONGESTION/SPICER bilat knees EORDERS- knee pain/ both BILATERAL KNEES TEMPLATING FOR RIGHT TKA Reason for Visit Osteoarthritis of kn ees, bilateral Osteoarthritis of knees, bilateral Osteoarthritis of knees, bilateral Arthritis CPAP (continuous positive airway pressure) dependence Degenerative disc disease GERD (gastroesophageal reflux disease) History of arthroscopic knee surgery History of deep vein thrombosis History of gastric restrictive surgery History of hemorrhoids History of shoulder surgery History of tonsillectomy History of umbilical hernia repair Obesity (BMI 35.0-39.9 without comorbidity) Obstructive sleep apnea 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 Traumatic open wound of right lower leg Varicose veins with inflammation Chronic wound of extremity Hypertension Acute bronchitis, unspecified Contact with and (suspected) exposure to other viral communicable diseases Osteoarthritis of knees, bilateral Decreased pedal pulses Left knee DJD Osteoarthritis of right knee Chief Complaint COUGH/CONGESTION/SPICER bilat knees EORDERS- knee pain/ both BILATERAL KNEES TEMPLATING FOR RIGHT TKA Reason for Visit Acute bronchitis, un specified Contact with and (suspected) exposure to other viral communicable diseases Osteoarthritis of knees, bilateral Decreased pedal pulses Left knee DJD Osteoarthritis of right knee Chief Complaint COUGH/CONGESTION/SPICER bilat knees EORDERS- knee pain/ both BILATERAL KNEES TEMPLATING FOR RIGHT TKA right knee RT TOTAL KNEE W HARJINDER RT TOTAL KNEE W HARJINDER RT TOTAL KNEE W HARJINDER RT TOTAL KNEE W HARJINDER RT TOTAL KNEE W HARJINDER Reason for Visit Acute bronchitis, un specified Contact with and (suspected) exposure to other viral communicable diseases Osteoarthritis of knees, bilateral Decreased pedal pulses Left knee DJD Osteoarthritis of right knee Osteoarthritis of right knee Other acute postprocedural pain S/P total knee arthroplasty Status post total right knee replacement Chief Complaint right knee RT TOTAL KNEE W HARJINDER RT TOTAL KNEE W HARJINDER RT TOTAL KNEE W HARJINDER RT TOTAL KNEE W HARJINDER RT TOTAL KNEE W HARJINDER RT TOTAL KNEE W HARJINDER right knee RIGHT KNEE REEVAL back pain right knee LUMBAR SPINE room 5 right knee LUMBAR PAIN TKA INTERNAL ORDER Reason for Visit Osteoarthritis of ri ght knee Other acute postprocedural pain S/P total knee arthroplasty Orthopedic aftercare Other acute postprocedural pain S/P total knee arthroplasty Segmental and somatic dysfunction of cervical region Segmental and somatic dysfunction of lumbar region Segmental and somatic dysfunction of pelvic region Segmental and somatic dysfunction of thoracic region DDD (degenerative disc disease) Knee stiffness Spondylolisthesis Orthopedic aftercare Chief Complaint RT TOTAL KNEE W HARJINDER RT TOTAL KNEE W HARJINDER RT TOTAL KNEE W HARJINDER RT TOTAL KNEE W HARJINDER RT TOTAL KNEE W HARJINDER RT TOTAL KNEE W HARJINDER right knee RIGHT KNEE REEVAL back pain right knee LUMBAR SPINE room 5 right knee LUMBAR PAIN LUMBAR SPINE LEFT KNEE TKA INTERNAL ORDER Reason for Visit Other acute postproc edural pain S/P total knee arthroplasty Orthopedic aftercare Other acute postprocedural pain S/P total knee arthroplasty Segmental and somatic dysfunction of cervical region Segmental and somatic dysfunction of lumbar region Segmental and somatic dysfunction of pelvic region Segmental and somatic dysfunction of thoracic region DDD (degenerative disc disease) Knee stiffness Spondylolisthesis Orthopedic aftercare Spondylolisthesis Left knee DJD Chief Complaint right knee RIGHT KNEE REEVAL back pain right knee LUMBAR SPINE room 5 right knee LUMBAR PAIN LUMBAR SPINE LEFT KNEE TKA INTERNAL ORDER TEMPLATING FOR LEFT TKA Reason for Visit Orthopedic aftercare Other acute postprocedural pain S/P total knee arthroplasty Segmental and somatic dysfunction of cervical region Segmental and somatic dysfunction of lumbar region Segmental and somatic dysfunction of pelvic region Segmental and somatic dysfunction of thoracic region DDD (degenerative disc disease) Knee stiffness Spondylolisthesis Orthopedic aftercare Spondylolisthesis Left knee DJD Chief Complaint LEFT KNEE TKA INTERNAL ORDER TEMPLATING FOR LEFT TKA left knee left total knee arthroplasty robotic assisted left total knee arthroplasty robotic assisted left total knee arthroplasty robotic assisted left total knee arthroplasty robotic assisted left total knee arthroplasty robotic assisted left knee S/P LTK/RX HERE left knee EORDER Reason for Visit Left knee DJD Left knee DJD Left knee pain Orthopedic aftercare Other acute postprocedural pain S/P total knee arthroplasty Orthopedic aftercare Arthrofibrosis of total knee arthroplasty S/P total knee arthroplasty Stiffness of left knee Chief Complaint LEFT KNEE TKA INTERNAL ORDER TEMPLATING FOR LEFT TKA left knee left total knee arthroplasty robotic assisted left total knee arthroplasty robotic assisted left total knee arthroplasty robotic assisted left total knee arthroplasty robotic assisted left total knee arthroplasty robotic assisted left knee left knee EORDER S/P LTK/RX HERE Reason for Visit Left knee DJD Left knee DJD Left knee pain Orthopedic aftercare Other acute postprocedural pain S/P total knee arthroplasty Orthopedic aftercare Arthrofibrosis of total knee arthroplasty S/P total knee arthroplasty Stiffness of left knee Chief Complaint TKA INTERNAL ORDER TEMPLATING FOR LEFT TKA left knee left total knee arthroplasty robotic assisted left total knee arthroplasty robotic assisted left total knee arthroplasty robotic assisted left total knee arthroplasty robotic assisted left total knee arthroplasty robotic assisted left knee left knee EORDER R HAND INJURY EORDER-RIGHT HAND-injury S/P LTK/RX HERE Reason for Visit Left knee DJD Left knee pain Orthopedic aftercare Other acute postprocedural pain S/P total knee arthroplasty Orthopedic aftercare Arthrofibrosis of total knee arthroplasty S/P total knee arthroplasty Stiffness of left knee Strain of right hand Chief Complaint left total knee arth roplasty robotic assisted left total knee arthroplasty robotic assisted left total knee arthroplasty robotic assisted left total knee arthroplasty robotic assisted left total knee arthroplasty robotic assisted left knee left knee EORDER R HAND INJURY EORDER-RIGHT HAND-injury LEFT KNEE S/P LTK/RX HERE Reason for Visit Orthopedic aftercare Other acute postprocedural pain S/P total knee arthroplasty Orthopedic aftercare Arthrofibrosis of total knee arthroplasty S/P total knee arthroplasty Stiffness of left knee Strain of right hand Orthopedic aftercare Chief Complaint left knee left knee EORDER R HAND INJURY EORDER-RIGHT HAND-injury LEFT KNEE S/P LTK/RX HERE LEFT LOWER LEG Reason for Visit Orthopedic aftercare Arthrofibrosis of total knee arthroplasty S/P total knee arthroplasty Stiffness of left knee Strain of right hand Orthopedic aftercare Chief Complaint R HAND INJURY EORDER-RIGHT HAND-injury LEFT KNEE S/P LTK/RX HERE LEFT LOWER LEG BILATERAL SHOULDERS pain/ CERV SPINE AND SHOULDERS Reason for Visit Strain of right hand Orthopedic aftercare Degenerative disc disease, cervical Tendinitis of both rotator cuffs Chief Complaint LEFT LOWER LEG BILATERAL SHOULDERS pain/ CERV SPINE AND SHOULDERS BACK,LEG/RX HERE 2ND CHART MO SHLD/RX HERE FALL Reason for Visit Degenerative disc di sease, cervical Tendinitis of both rotator cuffs Chief Complaint Admit Date LUMBAR PAIN March 26, 2024 3:26pm PREOP March 29, 2024 9 :29am ASSESS BMD, FREQUENT STEROID USE [facility] r 2023 10:43am LUMBAR SPINE April 05, 2024 2 :48pm Left shoulder Arthroscopy, subacromial d ecompressi April 07, 2024 5:29am Left shoulder Arthroscopy, subacromial d ecompressi April 07, 2024 7:04am left shoulder April 09, 2024 9:47am left shoulder April 19, 2024 9:44am LEFT SHOULDER May 17, 2024 1 0:41am AFTERCARE RX HERE May 27, 2024 1 0:00am lumbar spine June 11, 2024 10:45am 360 Lumbar Fusion L3-4, L4-5 and L5-S1 F ebruary 2024 7:23am 360 Lumbar Fusion L3-4, L4-5 and L5-S1 F ebruary 2024 2:27pm 360 Lumbar Fusion L3-4, L4-5 and L5-S1 F ebruary 2024 4:33pm 360 Lumbar Fusion L3-4, L4-5 and L5-S1 F ebruary 2024 6:40pm 360 Lumbar Fusion L3-4, L4-5 and L5-S1 F ebruary 2024 3:43pm 360 Lumbar Fusion L3-4, L4-5 and L5-S1 F ebruary 2024 5:15pm lumbar spine July 06, 2024 10: 53am s/p fusion July 06, 2024 11: 12am POST BACK SURGERY. RX HERE July 14, 2 025 12:00pm LUMBAR SPINE July 15, 2024 9:5 2am STAT R/L LEG PAIN July 15, 2024 10: 46am Reason for Visit Admit Date Other intervertebral disc de generation, lumbar region with discogenic back April 05, 2024 2:48pm Spondylolisthesis, lumbar region [facility] r 2023 2:48pm Left shoulder pain April 07, 2024 5:29am Tendinitis of both rotator cuffs [facility] r 2023 5:29am Left shoulder pain April 09, 2024 9:47am Tendinitis of both rotator cuffs [facility] 2023 9:47am Orthopedic aftercare April 19, 2024 9:44am Tendinitis of both rotator cuffs May 17, 2024 10:41am Other intervertebral disc de generation, lumbar region with discogenic back June 11, 2024 10:45am Spondylolisthesis, lumbar region y 2024 10:45am Status post lumbar spinal fusion ua y 2024 2:27pm Spondylolisthesis, lumbar region uar y 2024 2:27pm Status post lumbar spinal fusion June 262024 10:53am History of deep vein thrombosis July 152024 9:52am Lower extremity pain, bilateral July 152024 9:52am Chief Complaint Admit Date LUMBAR PAIN March 26, 2024 3:26pm PREOP March 29, 2024 9 :29am ASSESS BMD, FREQUENT STEROID USE [facility] 2023 10:43am LUMBAR SPINE April 05, 2024 2 :48pm Left shoulder Arthroscopy, subacromial d ecompressi April 07, 2024 5:29am Left shoulder Arthroscopy, subacromial d ecompressi April 07, 2024 7:04am left shoulder April 09, 2024 9:47am left shoulder April 19, 2024 9:44am LEFT SHOULDER May 17, 2024 1 0:41am AFTERCARE RX HERE May 27, 2024 1 0:00am lumbar spine June 11, 2024 10:45am 360 Lumbar Fusion L3-4, L4-5 and L5-S1 F ebruary 2024 7:23am 360 Lumbar Fusion L3-4, L4-5 and L5-S1 F ebruary 2024 2:27pm 360 Lumbar Fusion L3-4, L4-5 and L5-S1 F ebruary 2024 4:33pm 360 Lumbar Fusion L3-4, L4-5 and L5-S1 F ebruary 2024 6:40pm 360 Lumbar Fusion L3-4, L4-5 and L5-S1 F ebruary 2024 3:43pm 360 Lumbar Fusion L3-4, L4-5 and L5-S1 F ebruary 2024 5:15pm lumbar spine July 06, 2024 10: 53am s/p fusion July 06, 2024 11: 12am LUMBAR SPINE July 15, 2024 9:5 2am STAT R/L LEG PAIN July 15, 2024 10: 46am POST BACK SURGERY. RX HERE July 22, 025 11:00am Chief Complaint Admit Date left shoulder April 19, 2024 9:44am LEFT SHOULDER May 17, 2024 1 0:41am AFTERCARE RX HERE May 27, 2024 1 0:00am lumbar spine June 11, 2024 10:45am 360 Lumbar Fusion L3-4, L4-5 and L5-S1 F ebruary 2024 7:23am 360 Lumbar Fusion L3-4, L4-5 and L5-S1 F ebruary 2024 2:27pm 360 Lumbar Fusion L3-4, L4-5 and L5-S1 F ebruary 2024 4:33pm 360 Lumbar Fusion L3-4, L4-5 and L5-S1 F ebruary 2024 6:40pm 360 Lumbar Fusion L3-4, L4-5 and L5-S1 F ebruary 2024 3:43pm 360 Lumbar Fusion L3-4, L4-5 and L5-S1 F ebruary 2024 5:15pm lumbar spine July 06, 2024 10: 53am s/p fusion July 06, 2024 11: 12am LUMBAR SPINE July 15, 2024 9:5 2am STAT R/L LEG PAIN July 15, 2024 10: 46am BILATERAL LEG PAIN July 15, 2024 10: 49am pain August 03, 2024 10:4 2am lumbar spine August 03, 2024 10:5 3am POST BACK SURGERY. RX HERE August 05 025 2:00pm Reason for Visit Admit Date Orthopedic aftercare April 19, 2024 9:44am Tendinitis of both rotator cuffs May 17, 2024 10:41am Other intervertebral disc de generation, lumbar region with discogenic back June 11, 2024 10:45am Spondylolisthesis, lumbar region Febr y 2024 10:45am Status post lumbar spinal fusion y 2024 2:27pm Spondylolisthesis, lumbar region Februar y 2024 2:27pm Status post lumbar spinal fusion June 262024 10:53am History of deep vein thrombosis July 152024 9:52am Lower extremity pain, bilateral July 152024 9:52am Status post lumbar spinal fusion August 032024 10:53am Chief Complaint Admit Date AFTERCARE RX HERE May 27, 2024 1 0:00am lumbar spine June 11, 2024 10:45am 360 Lumbar Fusion L3-4, L4-5 and L5-S1 F ebruary 2024 7:23am 360 Lumbar Fusion L3-4, L4-5 and L5-S1 F ebruary 2024 2:27pm 360 Lumbar Fusion L3-4, L4-5 and L5-S1 F ebruary 2024 4:33pm 360 Lumbar Fusion L3-4, L4-5 and L5-S1 F ebruary 2024 6:40pm 360 Lumbar Fusion L3-4, L4-5 and L5-S1 F ebruary 2024 3:43pm 360 Lumbar Fusion L3-4, L4-5 and L5-S1 F ebruary 2024 5:15pm lumbar spine July 06, 2024 10: 53am s/p fusion July 06, 2024 11: 12am LUMBAR SPINE July 15, 2024 9:5 2am STAT R/L LEG PAIN July 15, 2024 10: 46am BILATERAL LEG PAIN July 15, 2024 10: 49am pain August 03, 2024 10:4 2am lumbar spine August 03, 2024 10:5 3am POST BACK SURGERY. RX HERE September 16 12:30pm s/p lumbar fusion September 21, 2024 10:13 am LUMBAR SPINE September 21, 2024 10:22 am Reason for Visit Admit Date Other intervertebral disc de generation, lumbar region with discogenic back June 11, 2024 10:45am Spondylolisthesis, lumbar region Februar y 2024 10:45am Status post lumbar spinal fusion Februar y 2024 2:27pm Spondylolisthesis, lumbar region Februar y 2024 2:27pm Status post lumbar spinal fusion June 262024 10:53am History of deep vein thrombosis July 152024 9:52am Lower extremity pain, bilateral July 152024 9:52am Status post lumbar spinal fusion August 032024 10:53am Chief Complaint Admit Date lumbar spine June 11, 2024 10:45am 360 Lumbar Fusion L3-4, L4-5 and L5-S1 F ebruary 2024 7:23am 360 Lumbar Fusion L3-4, L4-5 and L5-S1 F ebruary 2024 2:27pm 360 Lumbar Fusion L3-4, L4-5 and L5-S1 F ebruary 2024 4:33pm 360 Lumbar Fusion L3-4, L4-5 and L5-S1 F ebruary 2024 6:40pm 360 Lumbar Fusion L3-4, L4-5 and L5-S1 F ebruary 2024 3:43pm 360 Lumbar Fusion L3-4, L4-5 and L5-S1 F ebruary 2024 5:15pm lumbar spine July 06, 2024 10: 53am s/p fusion July 06, 2024 11: 12am LUMBAR SPINE July 15, 2024 9:5 2am STAT R/L LEG PAIN July 15, 2024 10: 46am BILATERAL LEG PAIN July 15, 2024 10: 49am pain August 03, 2024 10:4 2am lumbar spine August 03, 2024 10:5 3am s/p lumbar fusion September 21, 2024 10:13 am LUMBAR SPINE September 21, 2024 10:22 am POST BACK SURGERY. RX HERE September 21 12:00pm Reason for Visit Admit Date Other intervertebral disc de generation, lumbar region with discogenic back June 11, 2024 10:45am Spondylolisthesis, lumbar region Februar y 2024 10:45am Status post lumbar spinal fusion y 2024 2:27pm Spondylolisthesis, lumbar region Februar y 2024 2:27pm Status post lumbar spinal fusion June 262024 10:53am History of deep vein thrombosis July 152024 9:52am Lower extremity pain, bilateral July 152024 9:52am Status post lumbar spinal fusion August 032024 10:53am Status post lumbar spinal fusion August 10:22am Chief Complaint Admit Date 360 Lumbar Fusion L3-4, L4-5 and L5-S1 F ebruary 2024 7:23am 360 Lumbar Fusion L3-4, L4-5 and L5-S1 F ebruary 2024 2:27pm 360 Lumbar Fusion L3-4, L4-5 and L5-S1 F ebruary 2024 4:33pm 360 Lumbar Fusion L3-4, L4-5 and L5-S1 F ebruary 2024 6:40pm 360 Lumbar Fusion L3-4, L4-5 and L5-S1 F ebruary 2024 3:43pm 360 Lumbar Fusion L3-4, L4-5 and L5-S1 F ebruary 2024 5:15pm lumbar spine July 06, 2024 10: 53am s/p fusion July 06, 2024 11: 12am LUMBAR SPINE July 15, 2024 9:5 2am STAT R/L LEG PAIN July 15, 2024 10: 46am BILATERAL LEG PAIN July 15, 2024 10: 49am pain August 03, 2024 10:4 2am lumbar spine August 03, 2024 10:5 3am s/p lumbar fusion September 21, 2024 10:13 am LUMBAR SPINE September 21, 2024 10:22 am POST BACK SURGERY. RX HERE October 11 11:00am Reason for Visit Admit Date Status post lumbar spinal fusion y 2024 2:27pm Spondylolisthesis, lumbar region Februa y 2024 2:27pm Status post lumbar spinal fusion June 262024 10:53am History of deep vein thrombosis July 152024 9:52am Lower extremity pain, bilateral July 152024 9:52am Status post lumbar spinal fusion August 032024 10:53am Status post lumbar spinal fusion August 10:22am Chief Complaint Admit Date pain August 03, 2024 10:4 2am lumbar spine August 03, 2024 10:5 3am s/p lumbar fusion September 21, 2024 10:13 am LUMBAR SPINE September 21, 2024 10:22 am POST BACK SURGERY. RX HERE October 11 11:00am Reason for Visit Admit Date Status post lumbar spinal fusion August 032024 10:53am Status post lumbar spinal fusion August 10:22am Chief Complaint Admit Date s/p lumbar fusion September 21, 2024 10:13 am LUMBAR SPINE September 21, 2024 10:22 am POST BACK SURGERY. RX HERE October 11 11:00am LUMBAR SPINE December 23, 2024 10 :54am Reason for Visit Admit Date Status post lumbar spinal fusion August 10:22am Status post lumbar spinal fusion December 23, 2024 10:54am Additional Source Comments (unrecognized sect ion and content) No Status Records FoundNo Status Records FoundNo Status Records Found INFORMATION SOURCE (unrecogn ized section and content) DATE CREATED AUTHOR 04/06/2018 [facility] DATE CREATED AUTHOR AUTHOR'S ORGANIZ ATION 05/14/2019 [facility]ical [facility] DATE CREATED AUTHOR AUTHOR'S ORGANIZ ATION [facility] Source Comments (unrecognize d section and content) In the event this informatio n is protected by the Federal Confidentiality of Alcohol and Drug Abuse Patient Records regulations: The Federal rules restrict any use of the information to criminally investigate or prosecute any alcohol or drug abuse patient.[facility] the event this information is protected by the Federal Confidentiality of Alcohol and Drug Abuse Patient Records regulations: The Federal rules restrict any use of the information to criminally investigate or prosecute any alcohol or drug abuse patient.[facility] Care Teams (unrecognized sec tion and content) Team Status: Active Member Role Status Dates Dr. Renzo Beatty DO Primary Care Provider Active Team Status: Active Member Role Status Dates Dr. Renzo Beatty DO Primary Care Provider Active Start: June 21, 2024 Dr. Jai Miranda MD Admit Provider Active Star t: June 21, 2024 Dr. Jai Miranda MD Attending Provider Active Start: June 21, 2024 Dr. Jai Miranda MD Referring Provider Active Start: June 21, 2024 Dr. Jai Miranda MD Other Provider Active Star t: June 21, 2024 Team Status: Inactive Member Role Status Dates Dr. Renzo Beatty DO Primary Care Provider Active Start: June 21, 2024 End: June 22, 2024 Dr. Jai Miranda MD Admit Provider Active Star t: June 21, 2024 End: June 22, 2024 Dr. Jai Miranda MD Attending Provider Active Start: June 21, 2024 End: June 22, 2024 Dr. Jai Miranda MD Referring Provider Active Start: June 21, 2024 End: June 22, 2024 Dr. Mayco Ryan DO Other Provider Active Star t: June 21, 2024 End: June 22, 2024 Dr. Renzo Clemente DO Other Provider Active S tart: June 21, 2024 End: June 22, 2024 Team Status: Active Member Role Status Dates Dr. Renzo Beatty DO Primary Care Provider Active Start: June 21, 2024 Dr. Jai Miranda MD Admit Provider Active Star t: June 21, 2024 Dr. Jai Miranda MD Referring Provider Active Start: June 21, 2024 Dr. Jai Miranda MD Other Provider Active Star t: June 21, 2024 Dr. Mayco Ryan DO Other Provider Active Star t: June 21, 2024 Dr. Mayco Johnson MD Attending Provider Active S tart: June 21, 2024 Team Status: Active Member Role Status Dates Dr. Renzo Beatty DO Primary Care Provider Active Start: June 21, 2024 Dr. Jai Miranda MD Admit Provider Active Star t: June 21, 2024 Dr. Jai Miranda MD Referring Provider Active Start: June 21, 2024 Dr. Jai Miranda MD Other Provider Active Star t: June 21, 2024 Dr. Mayco Ryan DO Attending Provider Active Start: June 21, 2024 Dr. Mayco Ryan , DO Other Provider Active Star t: June 21, 2024 Team Status: Active Member Role Status Dates Dr. Renzo Beatty DO Primary Care Provider Active Start: June 22, 2024 Dr. Jai Miranda MD Admit Provider Active Star t: June 22, 2024 Dr. Jai Miranda MD Referring Provider Active Start: June 22, 2024 Dr. Jai Miranda MD Other Provider Active Star t: June 22, 2024 Dr. Mayco Ryan , DO Other Provider Active Star t: June 22, 2024 Dr. Renzo Clemente , DO Other Provider Active S tart: June 22, 2024 MOUSTAPHA Montoya Attending Provider Active Star t: June 22, 2024 Team Status: Active Member Role Status Dates Dr. Renzo Beatty DO Primary Care Provider Active Start: June 22, 2024 Dr. Jai Miranda MD Admit Provider Active Star t: June 22, 2024 Dr. Jai Miranda MD Other Provider Active Star t: June 22, 2024 Dr. Mayco Ryan DO Other Provider Active Star t: June 22, 2024 Dr. Renzo Clemente DO Attending Provider Active Start: June 22, 2024 Dr. Renzo Clemente , DO Other Provider Active S tart: June 22, 2024 Team Status: Inactive Member Role Status Dates Dr. Renzo Beatty DO Primary Care Provider Active Start: July 06, 2024 End: July 06, 2024 Dr. Renzo Beatty DO Referring Provider Active Start: July 06, 2024 End: July 06, 2024 MOUSTAPHA Montoya Attending Provider Active Star t: July 06, 2024 End: July 06, 2024 Team Status: Inactive Member Role Status Dates Dr. Renzo Beatty DO Primary Care Provider Active Start: July 06, 2024 End: July 06, 2024 MOUSTAPHA Montoya Attending Provider Active Star t: July 06, 2024 End: July 06, 2024 MOUSTAPHA Montoya Referring Provider Active Star t: July 06, 2024 End: July 06, 2024 Team Status: Inactive Member Role Status Dates Dr. Renzo Beatty DO Primary Care Provider Active Start: July 15, 2024 End: July 15, 2024 Dr. Renzo Beatty DO Referring Provider Active Start: July 15, 2024 End: July 15, 2024 Eden Sorto NP-C Attending Provider Active Start: July 15, 2024 End: July 15, 2024 Team Status: Inactive Member Role Status Dates Dr. Renzo Beatty DO Primary Care Provider Active Start: July 15, 2024 End: July 15, 2024 Eden Sorto NP-C Attending Provider Active Start: July 15, 2024 End: July 15, 2024 Eden Sorto NP-C Referring Provider Active Start: July 15, 2024 End: July 15, 2024 Team Status: Active Member Role Status Dates Dr. Edson Noguera MD Attending Provider Active Start: July 15, 2024 SALAS De La RosaC Referring Provider Active Start: July 15, 2024 Team Status: Inactive Member Role Status Dates Dr. Jai Miranda MD Attending Provider Active Start: August 03, 2024 End: August 03, 2024 Dr. Jai Miranda MD Referring Provider Active Start: August 03, 2024 End: August 03, 2024 Dr. Renzo Beatty DO Primary Care Provider Active Start: August 03, 2024 End: August 03, 2024 Team Status: Inactive Member Role Status Dates Dr. Renzo Beatty DO Primary Care Provider Active Start: August 03, 2024 End: August 03, 2024 Dr. Renzo Beatty DO Referring Provider Active Start: August 03, 2024 End: August 03, 2024 Dr. Jai Miranda MD Attending Provider Active Start: August 03, 2024 End: August 03, 2024 Team Status: Inactive Member Role Status Dates Dr. Jai Miranda MD Attending Provider Active Start: September 21, 2024 End: September 21, 2024 Dr. Jai Miranda MD Referring Provider Active Start: September 21, 2024 End: September 21, 2024 Dr. Renzo Beatty DO Primary Care Provider Active Start: September 21, 2024 End: September 21, 2024 Team Status: Inactive Member Role Status Dates Dr. Renzo Beatty DO Primary Care Provider Active Start: September 21, 2024 End: September 21, 2024 Dr. Renzo Beatty DO Referring Provider Active Start: September 21, 2024 End: September 21, 2024 Dr. Jai Miranda MD Attending Provider Active Start: September 21, 2024 End: September 21, 2024 Team Status: Inactive Member Role Status Dates Dr. Renzo Beatty DO Primary Care Provider Active Start: October 11, 2024 End: October 11, 2024 Dr. Jai Miranda MD Attending Provider Active Start: October 11, 2024 End: October 11, 2024 Dr. Jai Miranda MD Referring Provider Active Start: October 11, 2024 End: October 11, 2024 Team Status: Inactive Member Role Status Dates Dr. Renzo Beatty DO Primary Care Provider Active Start: June 11, 2024 End: June 11, 2024 Dr. Renzo Beatty DO Referring Provider Active Start: June 11, 2024 End: June 11, 2024 Dr. Jai Miranda MD Attending Provider Active Start: June 11, 2024 End: June 11, 2024 Team Status: Active Member Role Status Dates Dr. Renzo Beatty DO Primary Care Provider Active Start: September 21, 2024 Dr. Jai Miranda MD Attending Provider Active Start: September 21, 2024 Dr. Jai Miranda MD Referring Provider Active Start: September 21, 2024 Team Status: Active Member Role Status Dates Dr. Renzo Beatty DO Primary Care Provider Active Start: May 27, 2024 Ernesto Ramirez MD Attending Provider Active St art: May 27, 2024 Ernesto Ramirez MD Referring Provider Active St art: May 27, 2024 Team Status: Active Member Role Status Dates Dr. Renzo Beatty DO Primary Care Provider Active Start: September 16, 2024 Dr. Jai Miranda MD Attending Provider Active Start: September 16, 2024 Dr. Jai Miranda MD Referring Provider Active Start: September 16, 2024 Team Status: Active Member Role Status Dates Dr. Jai Miranda MD Attending Provider Active Start: September 21, 2024 Dr. Jai Miranda MD Referring Provider Active Start: September 21, 2024 Dr. Renzo Beatty DO Primary Care Provider Active Start: September 21, 2024 Team Status: Active Member Role Status Dates Dr. Renzo Beatty DO Family Provider Active Dr. Renzo Jaci , DO Primary Care Provider Active Team Status: Inactive Member Role Status Dates Dr. Renzo Beatty , DO Primary Care Provider, Referrin g Provider Active Ezequiel GERARD PA Attending Provider Active Team Status: Inactive Member Role Status Dates Dr. Renzo Beatty , DO Primary Care Provider, Referrin g Provider Active Yue GERARD, PA Attending Provider Active Team Status: Inactive Member Role Status Dates Dr. Renzo Beatty , DO Primary Care Provider, Referrin g Provider Active Robi GERARD, PA Attending Provider Active Team Status: Inactive Member Role Status Dates Dr. Renzo Beatty , DO Primary Care Provider, Referrin g Provider Active Dr. Jason Fritz , DO Attending Provider Active Team Status: Active Member Role Status Dates Dr. Renzo Beatty , DO Primary Care Provider Active Dr. Mayco Johnson MD Attending Provider Active Team Status: Inactive Member Role Status Dates Dr. Renzo Beatty DO Primary Care Provider Active Dr. Edson Noguera MD Attending Provider Active Team Status: Inactive Member Role Status Dates Dr. Renzo Beatty DO Primary Care Provider Active Ezequiel GERARD PA Attending Provider, Referring Prov ider Active Team Status: Inactive Member Role Status Dates Dr. Renzo Beatty DO Primary Care Provider Active Dr. Jason Fritz DO Attending Provider Active Team Status: Inactive Member Role Status Dates Dr. Renzo Beatty , DO Primary Care Prov ider, Attending Provider, Referring Provider Active Team Status: Active Member Role Status Dates Dr. Renzo Beatty DO Primary Care Provider Active Dr. Mayco Johnson MD Attending Provider Active Dr. Jason Fritz DO Referring Provider Active Team Status: Active Member Role Status Dates Dr. Renzo Beatty DO Primary Care Provider Active Dr. Jason Fritz DO Admit Provider, Attending Provider, Referring Provider, Other Provider Active Team Status: Active Member Role Status Dates Dr. Renzo Beatty DO Primary Care Provider Active Dr. Jason Fritz DO Admit Provider, Referring Provider, Other Provider Active Ezequiel GERARD PA Attending Provider Active Team Status: Inactive Member Role Status Dates Dr. Renzo Beatty DO Primary Care Provider Active Dr. Jason Fritz DO Admit Provider, Attending Provider, Referring Provider Active Team Status: Inactive Member Role Status Dates Dr. Renzo Beatty DO Primary Care Provider, Referrin g Provider Active Dr. Divya Coats DC Attending Provider Active Team Status: Active Member Role Status Dates Dr. Renzo Beatty , DO Primary Care Provider Active Dr. Jason Fritz DO Attending Provid er, Referring Provider, Other Provider Active Team Status: Inactive Member Role Status Dates Dr. Renzo Beatty , DO Primary Care Provider, Referrin g Provider Active Dr. Roel Gamez , DO Attending Provider Active Team Status: Inactive Member Role Status Dates Dr. Renzo Beatty DO Primary Care Provider Active Dr. Everardo Montalvo MD Attending Provider Active Team Status: Active Member Role Status Dates Dr. Renzo Beatty DO Primary Care Provider Active Dr. Jason Fritz , DO Attending Provider, Referring Provider Active Team Status: Inactive Member Role Status Dates Dr. Renzo Beatty DO Primary Care Provider Active Dr. Jason Fritz , DO Attending Provider, Referring Provider Active Team Status: Inactive Member Role Status Dates Dr. Renzo Beatty DO Primary Care Provider Active Dr. Roel Gamez , DO Attending Provider, Referring P rovider Active Team Status: Active Member Role Status Dates Dr. Renzo Beatty DO Primary Care Provider Active Dr. Jason Fritz DO Admit Provider, Attending Provider, Referring Provider, Other Provider Active Dr. Mayco Clarke MD Other Provider Active Team Status: Active Member Role Status Dates Dr. Rnezo Beatty DO Primary Care Provider Active Dr. Jason Fritz DO Admit Provider, Referring Provider, Other Provider Active Dr. Mayco Clarke MD Other Provider Active Yue GERARD, PA Attending Provider Active Team Status: Inactive Member Role Status Dates Dr. Renzo Beatty DO Primary Care Provider Active Dr. Jason Fritz DO Admit Provider, Attending Provider, Referring Provider Active Dr. Mayco Clarke MD Other Provider Active Team Status: Inactive Member Role Status Dates Dr. Renzo Beatty DO Primary Care Provider Active Robi GERARD, PA Attending Provider, Referring Pr ovider Active Team Status: Inactive Member Role Status Dates Dr. Renzo Beatty DO Primary Care Provider, Attendin g Provider Active Team Status: Active Member Role Status Dates Dr. Renzo Beatty DO Primary Care Provider Active Dr. Star Vanegas MD Attending Provider Active Dr. Christiano Newby , DO Referring Provider Active Team Status: Inactive Member Role Status Dates Dr. Renzo Beatty DO Primary Care Provider Active Dr. Christiano Newby DO Attending Provider, Emergency Provide r Active Team Status: Inactive Member Role Status Dates Dr. Jason Fritz DO Attending Provider, Referring Provider Active Dr. Renzo Beatty DO Primary Care Provider Active Team Status: Active Member Role Status Dates Dr. Renzo Beatty DO Primary Care Provider Active Dr. Jason Fritz DO Attending Provider, Referring Provider Active Dr. Catrachito Coughlin MD Other Provider Active Team Status: Inactive Member Role Status Dates Dr. Renzo Beatty DO Primary Care Provider Active Dr. Jim Mckay MD Emergency Provider Active Team Status: Inactive Member Role Status Dates Dr. Renzo Beatty DO Primary Care Provider Active Start: March 26, 2024 End: March 26, 2024 Dr. Jai Miranda MD Attending Provider Active Start: March 26, 2024 End: March 26, 2024 Dr. Jai Miranda MD Referring Provider Active Start: March 26, 2024 End: March 26, 2024 Team Status: Active Member Role Status Dates Dr. Renzo Beatty DO Primary Care Provider Active Start: March 29, 2024 End: March 29, 2024 Dr. Rickey Winkler MD Attending Provider Active Start: March 29, 2024 End: March 29, 2024 Ernesto Ramirez MD Referring Provider Active St art: March 29, 2024 End: March 29, 2024 Team Status: Inactive Member Role Status Dates Dr. Renzo Beatty DO Primary Care Provider Active Start: March 31, 2024 End: March 31, 2024 Dr. Renzo Beatty DO Attending Provider Active Start: March 31, 2024 End: March 31, 2024 Dr. Renzo Beatty DO Referring Provider Active Start: March 31, 2024 End: March 31, 2024 Team Status: Inactive Member Role Status Dates Dr. Renzo Beatty DO Primary Care Provider Active Start: April 05, 2024 End: April 05, 2024 Dr. Renzo Beatty DO Referring Provider Active Start: April 05, 2024 End: April 05, 2024 Dr. Jai Miranda MD Attending Provider Active Start: April 05, 2024 End: April 05, 2024 Team Status: Inactive Member Role Status Dates Dr. Renzo Beatty DO Primary Care Provider Active Start: April 07, 2024 End: April 07, 2024 Ernesto Ramirez MD Attending Provider Active St art: April 07, 2024 End: April 07, 2024 Ernesto Ramirez MD Referring Provider Active St art: April 07, 2024 End: April 07, 2024 Dr. Krishan Evans MD Other Provider Active S tart: April 07, 2024 End: April 07, 2024 Team Status: Active Member Role Status Dates Dr. Renzo Beatty DO Primary Care Provider Active Start: April 07, 2024 Ernesto Ramirez MD Attending Provider Active St art: April 07, 2024 Ernesto Ramirez MD Referring Provider Active St art: April 07, 2024 Ernesto Ramirez MD Other Provider Active Start: April 07, 2024 Dr. Krishan Evans MD Other Provider Active S tart: April 07, 2024 Team Status: Inactive Member Role Status Dates Dr. Renzo Beatty DO Primary Care Provider Active Start: April 09, 2024 End: April 09, 2024 Dr. Renzo Beatty DO Referring Provider Active Start: April 09, 2024 End: April 09, 2024 Ernesto Ramirez MD Attending Provider Active St art: April 09, 2024 End: April 09, 2024 Team Status: Inactive Member Role Status Dates Dr. Renzo Beatty DO Primary Care Provider Active Start: April 19, 2024 End: April 19, 2024 Dr. Renzo Beatty DO Referring Provider Active Start: April 19, 2024 End: April 19, 2024 Ernesto Ramirez MD Attending Provider Active St art: April 19, 2024 End: April 19, 2024 Team Status: Inactive Member Role Status Dates Dr. Renzo Beatty DO Primary Care Provider Active Start: May 17, 2024 End: May 17, 2024 Dr. Renzo Beatty DO Attending Provider Active Start: May 17, 2024 End: May 17, 2024 Team Status: Inactive Member Role Status Dates Dr. Renzo Beatty DO Primary Care Provider Active Start: May 17, 2024 End: May 17, 2024 Dr. Renzo Beatty DO Referring Provider Active Start: May 17, 2024 End: May 17, 2024 Ernesto Ramirez MD Attending Provider Active St art: May 17, 2024 End: May 17, 2024 Team Status: Active Member Role Status Dates Dr. Renzo Beatty DO Primary Care Provider Active Start: July 14, 2024 Dr. Jai Miranda MD Attending Provider Active Start: July 14, 2024 Dr. Jai Miranda MD Referring Provider Active Start: July 14, 2024 Team Status: Active Member Role Status Dates Dr. Renzo Beatty DO Primary Care Provider Active Start: July 15, 2024 ELEAZAR De [place] Attending Provider Active Start: July 15, 2024 ELEAZAR De [place] Referring Provider Active Start: July 15, 2024 Team Status: Active Member Role Status Dates Dr. Renzo Beatty DO Primary Care Provider Active Start: July 22, 2024 Dr. Jai Miranda MD Attending Provider Active Start: July 22, 2024 Dr. Jai Miranda MD Referring Provider Active Start: July 22, 2024 Team Status: Active Member Role Status Dates Dr. Renzo Beatty DO Primary Care Provider Active Start: August 05, 2024 Dr. Jai Miranda MD Attending Provider Active Start: August 05, 2024 Dr. Jai Miranda MD Referring Provider Active Start: August 05, 2024 Team Status: Active Member Role/Relationship Status Dates Dr. Renzo Beatty DO Primary Care Provider Active Team Status: Inactive Member Role/Relationship Status Dates Dr. Jai Miranda MD Attending Provider Active Start: August 03, 2024 End: August 03, 2024 Dr. Jai Miranda MD Referring Provider Active Start: August 03, 2024 End: August 03, 2024 Dr. Renzo Beatty DO Primary Care Provider Active Start: August 03, 2024 End: August 03, 2024 Team Status: Inactive Member Role/Relationship Status Dates Dr. Renzo Beatty DO Primary Care Provider Active Start: August 03, 2024 End: August 03, 2024 Dr. Renzo Beatty DO Referring Provider Active Start: August 03, 2024 End: August 03, 2024 Dr. Jai Miranda MD Attending Provider Active Start: August 03, 2024 End: August 03, 2024 Team Status: Inactive Member Role/Relationship Status Dates Dr. Jai Miranda MD Attending Provider Active Start: September 21, 2024 End: September 21, 2024 Dr. Jai Miranda MD Referring Provider Active Start: September 21, 2024 End: September 21, 2024 Dr. Renzo Beatty DO Primary Care Provider Active Start: September 21, 2024 End: September 21, 2024 Team Status: Inactive Member Role/Relationship Status Dates Dr. Renzo Beatty DO Primary Care Provider Active Start: September 21, 2024 End: September 21, 2024 Dr. Renzo Beatty DO Referring Provider Active Start: September 21, 2024 End: September 21, 2024 Dr. Jai Miranda MD Attending Provider Active Start: September 21, 2024 End: September 21, 2024 Team Status: Inactive Member Role/Relationship Status Dates Dr. Renzo Beatty DO Primary Care Provider Active Start: October 11, 2024 End: October 11, 2024 Dr. Jai Miranda MD Attending Provider Active Start: October 11, 2024 End: October 11, 2024 Dr. Jai Miranda MD Referring Provider Active Start: October 11, 2024 End: October 11, 2024 Team Status: Inactive Member Role/Relationship Status Dates Dr. Jai Miranda MD Attending Provider Active Start: September 21, 2024 End: September 21, 2024 Dr. Jai Miranda MD Referring Provider Active Start: September 21, 2024 End: September 21, 2024 Dr. Renzo Beatty DO Primary Care Provider Active Start: September 21, 2024 End: September 21, 2024 Team Status: Inactive Member Role/Relationship Status Dates Dr. Renzo Beatty DO Primary Care Provider Active Start: September 21, 2024 End: September 21, 2024 Dr. Renzo Beatty DO Referring Provider Active Start: September 21, 2024 End: September 21, 2024 Dr. Jai Miranda MD Attending Provider Active Start: September 21, 2024 End: September 21, 2024 Team Status: Inactive Member Role/Relationship Status Dates Dr. Renzo Beatty DO Primary Care Provider Active Start: October 11, 2024 End: October 11, 2024 Dr. Jai Miranda MD Attending Provider Active Start: October 11, 2024 End: October 11, 2024 Dr. Jai Miranda MD Referring Provider Active Start: October 11, 2024 End: October 11, 2024 Team Status: Active Member Role/Relationship Status Dates Dr. Renzo Beatty DO Primary Care Provider Active Start: December 21, 2024 Dr. Jai Miranda MD Attending Provider Active Start: December 21, 2024 Dr. Jai Miranda MD Referring Provider Active Start: December 21, 2024 Team Status: Inactive Member Role/Relationship Status Dates Dr. Renzo Beatty DO Primary Care Provider Active Start: December 23, 2024 End: December 23, 2024 Dr. Renzo Beatty DO Referring Provider Active Start: December 23, 2024 End: December 23, 2024 Dr. Jai Miranda MD Attending Provider Active Start: December 23, 2024 End: December 23, 2024 Team Status: Inactive Member Role/Relationship Status Dates Dr. Renzo Beatty DO Primary Care Provider Active Start: December 21, 2024 End: December 21, 2024 Dr. Jai Miranda MD Attending Provider Active Start: December 21, 2024 End: December 21, 2024 Dr. Jai Miranda MD Referring Provider Active Start: December 21, 2024 End: December 21, 2024 FOR RECORDS PERTAINING TO PATIENTS WHO ARE [...] BE BASED ON THE PRIMARY CLINICAL RECORDS. [employer] provides no warranty or guarantee of the accuracy or completeness of information in this document.
== END | disposition home or self-care (01) ==
PROVIDERS: PCP Family Medicine; Referring Provider Student in an Organized Health Care Education/Training Program; Visit Provider Student in an Organized Health Care Education/Training Program
DX: M54.9 Dorsalgia, unspecified (principal)
CPT/HCPCS: 72110

== ENCOUNTER → 2025-04-20 | Outpatient (CLI) | payer OTHER, SELFPAY ==
--- NOTE | 2025-04-20 09:29 | MRI_ITS ---
PROCEDURE: SPINE LUMBAR (ROUTINE) 04/20/2025 REASON FOR EXAM: PAIN X2 MONTHS WORSENING, HX OF FUSION TECHNIQUE: Procedure Code: MRISPL Modality: MR Procedure: SPINE LUMBAR (ROUTINE) COMPARISON: CT lumbar spine 04/20/2025. FINDINGS: Vertebrae: Status post posterior fusion and spacers placement of L3 through S1. Preserved in height. Alignment: Anterolisthesis L4 on L5 by 6 mm. Conus Medullaris: Unremarkable. L1-2: Small disc bulge. No significant foraminal or canal stenosis. L2-3: Small disc bulge. Facet joint arthropathy. Mild inferior bilateral foramina stenosis. No significant canal stenosis. L3-4: Ligamentum flavum hypertrophy. No significant foraminal or canal stenosis. L4-5: Facet joints arthropathy and ligamentum flavum hypertrophy. No significant foraminal or canal stenosis. L5-S1: Facet joints arthropathy and uncovered disc bulge. Moderate right and mild left. No canal stenosis. Sacrum: Unremarkable. MRI/Spine Lumbar (Routine) IMPRESSION: Postsurgical changes as detailed. Moderate right foramina stenosis at L4 S1 with mass-effect upon the exiting ner ve. No significant canal stenosis. Reading Location: [id number]
--- OUTSIDE RECORDS SUMMARY | 2025-04-20 09:34 | XMS RPT_ITS | CCD ---
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 Gomez Referring Provider [phone] Dr. Divya Coats Attending Provider [phone] Franco, Dr. [...] [phone] Dr. Jason Fritz Attending Provider [phone] MOUSTAPHA [...] Attending Provider Yesenia Han Referring Provider Macario SHELTERED WORKSHOP WORKER-CEden Attending Provider Macario SHELTERED WORKSHOP WORKER-CEden Referring Provider Dr. Renzo Beatty DO Primary Care Provider Dr. Renzo Beatty DO Referring Provider Ernesto Ramirez MD Attending Provider Dr. Renzo Beatty DO Attending Provider Ernesto Ramirez MD Referring Provider Dr. Jai Miranda MD Attending Provider Dr. Jai Miranda MD Referring Provider Dr. Edson Noguera MD Attending Provider Dr. Renzo Beatty DO Primary Care Provider Ernesto Ramirez [...] Attending Unavailable Jaci, Renzo Primary Care Unavailable Jaic, Renzo Referring Unavailable Mollison, Ernesto Referring Unavailable [...] amLODIPine / benazepril drug allergy [address] [facility] Work Phone: (7 sources) olmesartan drug allergy [address] [facility] Work Phone: (11 sources) olmesartan; Translations: [OLMESARTAN MEDOXOMIL] Drug Allergy 7 Other: See Comments [facility] Repository Medications Current Medications Medication [...] TABS One tablet by mouth daily ASPIRIN [id number] Maru Alvares Start: 08-20-2010 End: 10-18-2015 take 1 tablet by mouth once daily ASPIRIN 81 MG TABS One tablet by mouth daily ASPIRIN [id number] Maru Randall Giorgio calcium citrate 1500 mg [...] Start: 01-08-2022 take 1 capsule by mo [facility] once daily Cholecalciferol (Vitamin D3) (Vitamin [...] 04-23-2016 INEZ 180 MG TABS FEXOFENADINE HCL [id number] Silvestre Munson Start: 08-04-2010 INEZ 180 MG TABS FEXOFENADINE HCL 84591800689 Crystal Thorne PA-C Start: 08-04-2010 End: 04-23-2016 NIEZ 180 MG TABS FEXOFENADINE HCL [id number] Silvestre Munson Comment on above: Take 180 [...] once daily METOPROLOL SUCCINATE ER 25 MG [id number] One tablet by mouth daily METOPROLOL SUCCINATE [id number] Renzo Beatty DO Start: 08-04-2010 End: 10-18-2015 TOPROL XL 100 MG [id number] METOPROLOL SUCCINATE [id number] Che Gross Start: 08-04-2010 End: 10-18-2015 TOPROL XL 100 MG [id number] METOPROLOL SUCCINATE 59995157639 Che Gross Multivitamin capsule (18 sources) Start: [...] Start: 08-04-2010 End: 10-18-2015 PROTONIX 20 MG [facility] PANTOPRAZOLE SODIUM 62812012229 Crystal Thorne PA-C Comment on above: Take [...] needed every 4 hours for pain HYDROCODONE-ACETAMINOPHEN [id number] Renzo Beatty DO Start: 01-05-2015 End: 03-03-2015 HYDROCODONE-ACETAMINOPHEN 5- 325 MG TABS one tab every six hours HYDROCODONE-ACETAMINOPHEN 69575908669 Renzo Beatty DO acetaminophen 325 mg / [...] Take 1 tablet 5 times daily ACYCLOVIR [id number] Bishop GERARD [id number] 200 actuat albuterol 0.09 mg/actuat metered dose [...] daily at night for cholesterol ATORVASTATIN CALCIUM 22029660406 Renzo Beatty DO azithromycin 250 mg oral [...] Start: 05-23-2021 take 1 capsule by mo [facility] once daily Celecoxib (Celebrex) 200 mg [...] One tablet by mouth twice daily GLUCOSAMINE-CHONDROITIN 31407169672 Renzo Chirinos [facility] DO Start: 01-05-2015 End: 10-18-2015 take 1 tablet by mouth twice daily COSAMIN DS 500-400 MG TABS One tablet by mouth twice daily GLUCOSAMINE-CHONDROITIN 95414821535 Renzo Chirinos [facility] DO Start: 01-05-2015 take 1 tablet by rg twice daily COSAMIN DS 500-400 MG TABS One tablet by mouth twice daily GLUCOSAMINE-CHONDROITIN 74670854001 Renzo A [facility] DO ciprofloxacin 3 mg/ml ophthalmic solution (7 sources) Quinolone Antimicrobial Start: 08-04-2010 End: 08-07-2010 CIPROFLOXACIN HCL 0.3 % SOLN 1 drop twice daily for 3 days. CIPROFLOXACIN HCL 51630229017 Crystal RECINOSC docusate sodium 50 mg / sennosides, long-term 8.6 mg oral tablet (9 sources) Start: [...] One tablet by mouth daily CHOLINE FENOFIBRATE 72612837129 Renzo Chirinos Jaci Start: 08-04-2010 TRICOR TABS 20 03/01/09 FENOFIBRATE TABS 66332157229 Crystal Thorne PA-C Start: 08-04-2010 End: 05-25-2015 TRICOR TABS 05/25 FENOFIBRATE TABS 61967427104 Renzo Candis Jaci hydroCHLOROthiazide 25 mg oral tablet (14 sources) Thiazide Diuretic Start: 01-05-2015 take 1 tablet by mouth once daily HYDROCHLOROTHIAZIDE 25 MG TABS One tablet by mouth daily HYDROCHLOROTHIAZIDE 24370793059 Renzo Candis Jaci DO Inulin (2 sources) [...] pill tw ice daily with food MELOXICAM 30547564224 Maru Alvares 24 hr metFORMIN hydrochloride 500 mg extended release oral tablet (20 sources) Biguanide Start: 09-18-2015 take 1 tablet by mouth twice daily METFORMIN HCL ER 500 MG [id number] One tablet by mouth twice daily METFORMIN HCL 70872442687 Renzo Candis Jaci DO Start: 01-05-2015 End: 09-18-2015 take 1 tablet by mouth once daily METFORMIN HCL 500 MG TABS One tablet by mouth daily METFORMIN HCL 46675007942 Renzo Candis Jaci OJEDA methocarbamol 500 mg [...] 30, 2017 1:00am February 07, 2019 8:18am [place] 5-Tnp-Vqm-Fish Oil (Fi sh Oil) 1,200 (144-216) mg Capsule (20 sources) Start: 01-08-2022 End: 06-03-2022 [place] 2-Jib-Chn-Fish Oil (Fi sh Oil) 1,200 (144-216) mg Capsule Discontinued 1 NMA PO DAILY January 08, 2022 12:00am June 03, 2022 3:30pm Start: 01-08-2022 End: 06-03-2022 take 1 capsule by mouth once daily [place] 8-Sva-Ukg-Fish Oil (Fish Oil) 1,200 (144-216) mg Capsule Discontinued 1 CAP PO DAILY January 08, 2022 12:00am June 03, 2022 3:30pm Start: 01-08-2022 End: 06-03-2022 take 1 capsule by mouth once daily [place] 9-Zxz-Qal-Fish Oil (Fish Oil) 1,200 (144-216) mg Capsule Discontinued 1 CAP PO DAILY January 07, 2022 11:00pm June 03, 2022 2:30pm Start: 01-08-2022 take 1 capsule by mo ut once daily [place] 8-Dkf-Bwg-Fish Oil (Fish Oil) 1,200 (144-216) mg Capsule Active 1 CAP PO DAILY January 07, 2022 11:00pm Start: 01-08-2022 take 1 capsule by mo uth once daily [place] 9-Gkp-Adc-Fish Oil (Fish Oil) 1,200 (144-216) mg Capsule Active 1 CAP PO DAILY January 08, 2022 12:00am Start: 05-23-2021 End: 07-04-2021 [place] 4-Jco-Khl-Fish Oil (Fi sh Oil) 1,200 (144-216) mg Capsule Discontinued 2 NMA PO DAILY May 23, 2021 1:00am July 04, 2021 2:28pm Start: 05-23-2021 End: 07-04-2021 take 2 capsules by mouth once daily [place] 2-Wmx-Pde-Fish Oil (Fish Oil) 1,200 (144-216) mg Capsule Discontinued 2 CAP PO DAILY May 23, 2021 12:00am July 04, 2021 1:28pm Start: 05-23-2021 End: 07-04-2021 take 2 capsules by mouth once daily [place] 8-Erz-Npi-Fish Oil (Fish Oil) 1,200 (144-216) mg Capsule [...] ORAL POWD 1/2 teaspoon once daily PSYLLIUM [id number] Fadia Patel LPN Start: 01-05-2015 take 0.5 [tsp_us] by mouth once daily METAMUCIL 30.9 % ORAL POWD 1/2 teaspoon once daily PSYLLIUM 31596469334 Renzo Beatty DO Psyllium Seed (Sugar) (17 [...] One tablet by mouth daily SITAGLIPTIN PHOSPHATE 24818089458 Renzo Beatty DO sulfacetamide sodium 100 mg/ml [...] daily at night for BPH TAMSULOSIN HCL 83762663896 Renzo Beatty DO TOBRAMYCIN (2 sources) Aminoglycoside Antibacterial Start: 01-09-2017 TOBREX 0.3 % OINT Apply half inch ribbon along right lower eyelash border twice daily TOBRAMYCIN 55017236108 Robi GERARD Start: 01-09-2017 TOBREX 0.3 % O INT Apply half inch ribbon along right lower eyelash border twice daily TOBRAMYCIN 37077699240 Robi GERARD traMADol hydrochloride 50 mg oral [...] HCL 50 MG TABS PRN TRAMADOL HCL 89138073621 Renzo Beatty Comment on above: Take 50 [...] 04-19-2024 08-19-2022 Episodic Other aftercare (1 source) halfway (current) use of systemic steroids; Translations: [long term care administrator (current) use of systemic steroids] Onset: 05-03-2024 [...] of a parasitic infection. TESTING PERFORMED AT [facility]. ORIGINAL REPORT ON FILE IN LAB CONTAINS ADDITIONAL TEST SITE INFORMATION. Ova/Parasite Exam NO OVA, CYSTS, OR PARASITES FOUND. Normal [facility] Comment on above: Performed By: #### L 4600.0100, L505.7010, L101.9900, L501.1400, L501.6710 #### [facility] [address] [place], [place], [address] CDIFF (PCR)on 01-28-2025 CDIFF Pending [phone] NAP1-B1 Presumptive Negative *for epidemiolologic???use C. Diff PCR Negative- No toxigenic C. Diff Detected Normal [facility] Comment on above: Performed By: #### L 4600.0100, L505.7010, L101.9900, L501.1400, L501.6710 #### [facility] [address] [place], [place], [address] ENTERIC PATHOGEN PANEL STOOL on 01-28-2025 EP [...] VIBRIO Not Detected Yersinia Not Detected Normal [facility] Comment on above: Performed By: #### L 4600.0100, L505.7010, L101.9900, L501.1400, L501.6710 #### [facility] [address] [facility] [place], [address] Stool Lactoferrin/WBCon 10-0 -2024 WBCST Normal Reference Range = Negative Fecal WBC Lactoferrin Negative: No Fecal WBC Lactoferrin present Normal [facility] Comment on above: Performed By: #### L 4600.0100, L505.7010, L101.9900, L501.1400, L501.6710 #### [facility] [address] [place], [address] CBC W/Diff, Automatedon 10-0 -2024 Absolute Lymph 2.01 X10 3/uL Normal 0.83-4.51 [facility] Comment on above: Performed By: #### L 101.9900, L501.6710, L506.1001, L503.0106, L506.0400, L100.0100, L501.5200, L500.4050, L501.9520 ####[facility] [address] [place], [address] Absolute Neut 3.7 X10 3/uL Normal 2.0-7.7 [facility] Comment on above: Performed By: #### L 101.9900, L501.6710, L506.1001, L503.0106, L506.0400, L100.0100, L501.5200, L500.4050, L501.9520 ####[facility] [address] [place], [address] Basophils/100 WBC (Bld) 0.5 % Normal 0-1 [facility] Comment on above: Performed By: #### L 101.9900, L501.6710, L506.1001, L503.0106, L506.0400, L100.0100, L501.5200, L500.4050, L501.9520 ####[facility] [address] [place], [place], [phone] Eosinophils/100 WBC (Bld) 2.7 % Normal 0-5 [facility] Comment on above: Performed By: #### L 101.9900, L501.6710, L506.1001, L503.0106, L506.0400, L100.0100, L501.5200, L500.4050, L501.9520 ####[facility] [address], [address](836) Erythrocyte distribution width (RBC) [Ratio] 13.7 % Normal 11.6-14.6 [facility] Comment on above: Performed By: #### L 101.9900, L501.6710, L506.1001, L503.0106, L506.0400, L100.0100, L501.5200, L500.4050, L501.9520 ####[facility] [address], [phone]) Hematocrit (Bld) [Volume fraction] 46.5 % Normal 40-54 [facility] Comment on above: Performed By: #### L 101.9900, L501.6710, L506.1001, L503.0106, L506.0400, L100.0100, L501.5200, L500.4050, L501.9520 ####[facility] [address] [place], [address](442 Hemoglobin (Bld) [Mass/Vol] 15.1 g/dL Normal 13.0-16.5 [facility] Comment on above: Performed By: #### L 101.9900, L501.6710, L506.1001, L503.0106, L506.0400, L100.0100, L501.5200, L500.4050, L501.9520 ####[facility] [address] [place], [address] IG% 0.300 Normal 0.0-0.9 [facility] Comment on above: Result Comment: IG% - Immature Granulocytes (promyelocytes, myelocytes and metamyelocytes) > 1% indicates that a LEFT SHIFT is Present. Performed By: #### L 101.9900, L501.6710, L506.1001, L503.0106, L506.0400, L100.0100, L501.5200, L500.4050, L501.9520 ####[facility] [address] [place], [address] Lymphocytes/100 WBC (Bld) 30.5 % Normal 19-41 [facility] Comment on above: Performed By: #### L 101.9900, L501.6710, L506.1001, L503.0106, L506.0400, L100.0100, L501.5200, L500.4050, L501.9520 ####[facility] [address] [place], [address] MCH (RBC) [Entitic mass] 28.0 pg Normal 27.0-32.0 [facility] Comment on above: Performed By: #### L 101.9900, L501.6710, L506.1001, L503.0106, L506.0400, L100.0100, L501.5200, L500.4050, L501.9520 ####[facility] [address] [place], [address] MCHC (RBC) [Mass/Vol] 32.5 g/dL Normal 32-36 [facility] Comment on above: Performed By: #### L 101.9900, L501.6710, L506.1001, L503.0106, L506.0400, L100.0100, L501.5200, L500.4050, L501.9520 ####[facility] [address] [place], [address] MCV (RBC) [Entitic vol] 86.3 fL Normal 80-94 [facility] Comment on above: Performed By: #### L 101.9900, L501.6710, L506.1001, L503.0106, L506.0400, L100.0100, L501.5200, L500.4050, L501.9520 ####[facility] [address] [place], [address] Monocytes/100 WBC (Bld) 10.6 % High 0-10 [facility] Comment on above: Performed By: #### L 101.9900, L501.6710, L506.1001, L503.0106, L506.0400, L100.0100, L501.5200, L500.4050, L501.9520 ####[facility] [address] [place], [address] Neutrophils/100 WBC (Bld) 55.4 % Normal 47-70 [facility] Comment on above: Performed By: #### L 101.9900, L501.6710, L506.1001, L503.0106, L506.0400, L100.0100, L501.5200, L500.4050, L501.9520 ####[facility] [address] [place], [address] Nucleated RBC (Bld) [#/Vol] 0 10*3/uL Normal 0-5 [facility] Comment on above: Performed By: #### L 101.9900, L501.6710, L506.1001, L503.0106, L506.0400, L100.0100, L501.5200, L500.4050, L501.9520 ####[facility] [address] [place], [address] Platelet mean volume (Bld) [Entitic vol] 11.6 fL Normal 6.2-12.0 [facility] Comment on above: Performed By: #### L 101.9900, L501.6710, L506.1001, L503.0106, L506.0400, L100.0100, L501.5200, L500.4050, L501.9520 ####[facility] [address] [place], [place], [phone](039) Platelets (Bld) [#/Vol] 233 10*3/uL Normal 150-450 [facility] Comment on above: Performed By: #### L 101.9900, L501.6710, L506.1001, L503.0106, L506.0400, L100.0100, L501.5200, L500.4050, L501.9520 ####[facility] [address] [place], [place], [phone](708) RBC (Bld) [#/Vol] 5.39 10*6/uL Normal 4.6-6.2 [facility] Comment on above: Performed By: #### L 101.9900, L501.6710, L506.1001, L503.0106, L506.0400, L100.0100, L501.5200, L500.4050, L501.9520 ####[facility] [address] [place], [place], [phone] RDW SD 42.9 fl Normal 35.1-43.9 [facility] Comment on above: Performed By: #### L 101.9900, L501.6710, L506.1001, L503.0106, L506.0400, L100.0100, L501.5200, L500.4050, L501.9520 ####[facility] [address] [place], [place], [phone] WBC (Bld) [#/Vol] 6.6 10*3/uL Normal 4.4-11.0 [facility] Comment on above: Performed By: #### L 101.9900, L501.6710, L506.1001, L503.0106, L506.0400, L100.0100, L501.5200, L500.4050, L501.9520 ####[facility] [address] [place], [place], [phone] CRPon 01-27-2025 C-REACTIVE PROT < 3.00 Normal 0.0-3.0 [facility] Comment on above: Performed By: #### L 101.9900, L501.6710, L506.1001, L503.0106, L506.0400, L100.0100, L501.5200, L500.4050, L501.9520 ####[facility] [address] [place], [place], [phone] Comprehensive Metabolic Prof ilon 01-27-2025 Albumin [Mass/Vol] 4.0 g/dL Normal 3.5-5.0 [facility] Comment on above: Performed By: #### L 101.9900, L501.6710, L506.1001, L503.0106, L506.0400, L100.0100, L501.5200, L500.4050, L501.9520 ####[facility] [address] [place], [place], [phone] Albumin/Globulin [Mass ratio] 1.8 {ratio} Normal 0.9-2.4 [facility] Comment on above: Performed By: #### L 101.9900, L501.6710, L506.1001, L503.0106, L506.0400, L100.0100, L501.5200, L500.4050, L501.9520 ####[facility] [address] [place], [address] ALK PHOS 59 U/L Normal 40-129 [facility] Comment on above: Performed By: #### L 101.9900, L501.6710, L506.1001, L503.0106, L506.0400, L100.0100, L501.5200, L500.4050, L501.9520 ####[facility] [address] [place], [place], [phone](680) ALT [Catalytic activity/Vol] 14 U/L Normal <=46 [facility] Comment on above: Performed By: #### L 101.9900, L501.6710, L506.1001, L503.0106, L506.0400, L100.0100, L501.5200, L500.4050, L501.9520 ####[facility] [address] [place], [place], [phone] AST [Catalytic activity/Vol] 16 U/L Normal <=37 [facility] Comment on above: Performed By: #### L 101.9900, L501.6710, L506.1001, L503.0106, L506.0400, L100.0100, L501.5200, L500.4050, L501.9520 ####[facility] [address] [place], [place], [phone] Bilirubin [Mass/Vol] 0.38 mg/dL Normal 0.00-1.30 [facility] Comment on above: Performed By: #### L 101.9900, L501.6710, L506.1001, L503.0106, L506.0400, L100.0100, L501.5200, L500.4050, L501.9520 ####[facility] [address] [place], [place], [phone](014) BUN/CRE 18.6 RATIO Normal 10-20 [facility] Comment on above: Performed By: #### L 101.9900, L501.6710, L506.1001, L503.0106, L506.0400, L100.0100, L501.5200, L500.4050, L501.9520 ####[facility] [address] [place], [address] Calcium [Mass/Vol] 9.0 mg/dL Normal 7.6-11.0 [facility] Comment on above: Performed By: #### L 101.9900, L501.6710, L506.1001, L503.0106, L506.0400, L100.0100, L501.5200, L500.4050, L501.9520 ####[facility] [address] [place], [address] Chloride [Moles/Vol] 106 mmol/L Normal 98-108 [facility] Comment on above: Performed By: #### L 101.9900, L501.6710, L506.1001, L503.0106, L506.0400, L100.0100, L501.5200, L500.4050, L501.9520 ####[facility] [address] [place], [address] CO2 [Moles/Vol] 25.5 mmol/L Normal 21.0-32.0 [facility] Comment on above: Performed By: #### L 101.9900, L501.6710, L506.1001, L503.0106, L506.0400, L100.0100, L501.5200, L500.4050, L501.9520 ####[facility] [address] [place], [address] Creatinine [Mass/Vol] 0.94 mg/dL Normal 0.70-1.20 [facility] Comment on above: Performed By: #### L 101.9900, L501.6710, L506.1001, L503.0106, L506.0400, L100.0100, L501.5200, L500.4050, L501.9520 ####[facility] [address] [place], [address] GAP 11 Normal 5-15 [facility] Comment on above: Performed By: #### L 101.9900, L501.6710, L506.1001, L503.0106, L506.0400, L100.0100, L501.5200, L500.4050, L501.9520 ####[facility] [address] [place], [address] GFR/1.73 sq M.predicted among non-blacks MDRD (S/P/Bld) [Vol rate/Area] 95 mL/min/{1.73_m2} Normal >60 [facility] Comment on above: Result Comment: mL/m in/1.73m2 CKD-EPI Creatinine Equation (2020) Performed By: #### L 101.9900, L501.6710, L506.1001, L503.0106, L506.0400, L100.0100, L501.5200, L500.4050, L501.9520 ####[facility] [address] [place], [address] Globulin (S) [Mass/Vol] 2.2 g/dL Normal 2.2-4.2 [facility] Comment on above: Performed By: #### L 101.9900, L501.6710, L506.1001, L503.0106, L506.0400, L100.0100, L501.5200, L500.4050, L501.9520 ####[facility] [address] [place], [address] Glucose [Mass/Vol] 93 mg/dL Normal 70-99 [facility] Comment on above: Performed By: #### L 101.9900, L501.6710, L506.1001, L503.0106, L506.0400, L100.0100, L501.5200, L500.4050, L501.9520 ####[facility] [address] [place], [address] Potassium [Moles/Vol] 4.2 mmol/L Normal 3.3-5.1 [facility] Comment on above: Performed By: #### L 101.9900, L501.6710, L506.1001, L503.0106, L506.0400, L100.0100, L501.5200, L500.4050, L501.9520 ####[facility] [address] [place], [address] Sodium [Moles/Vol] 142 mmol/L Normal 133-145 [facility] Comment on above: Performed By: #### L 101.9900, L501.6710, L506.1001, L503.0106, L506.0400, L100.0100, L501.5200, L500.4050, L501.9520 ####[facility] [address] [place], [address] T PROT 6.2 g/dL Normal 5.9-8.4 [facility] Comment on above: Performed By: #### L 101.9900, L501.6710, L506.1001, L503.0106, L506.0400, L100.0100, L501.5200, L500.4050, L501.9520 ####[facility] [address] [place], [address] Urea nitrogen [Mass/Vol] 18 mg/dL Normal 4-19 [facility] Comment on above: Performed By: #### L 101.9900, L501.6710, L506.1001, L503.0106, L506.0400, L100.0100, L501.5200, L500.4050, L501.9520 ####[facility] [address] [place], [place], [phone] Erythrocyte Sed Rateon 01-27 SED RATE < 1 Normal 0-20 [facility] Comment on above: Performed By: #### L 101.9900, L501.6710, L506.1001, L503.0106, L506.0400, L100.0100, L501.5200, L500.4050, L501.9520 ####[facility] [address] [place], [place], [phone] Magnesiumon 01-27-2025 Magnesium [Mass/Vol] 2.2 mg/dL Normal 1.5-2.2 [facility] Comment on above: Performed By: #### L 101.9900, L501.6710, L506.1001, L503.0106, L506.0400, L100.0100, L501.5200, L500.4050, L501.9520 ####[facility] [address] [place], [place], [phone] T4 Free Directon 01-27-2025 T4 FREE DIRECT 1.20 ng/dL Normal 0.76-1.46 [facility] Comment on above: Performed By: #### L 101.9900, L501.6710, L506.1001, L503.0106, L506.0400, L100.0100, L501.5200, L500.4050, L501.9520 ####[facility] [address] [place], [place], [id number] Thyroid Stim Hormone (TSH)on 01-27-2025 TSH 1.110 uIU/mL Normal 0.300-4.200 [facility] Comment on above: Performed By: #### L 101.9900, L501.6710, L506.1001, L503.0106, L506.0400, L100.0100, L501.5200, L500.4050, L501.9520 ####[facility] [address] [place], [place], [id number] Vitamin B12on 01-27-2025 Cobalamin (Vitamin B12) [Mass/Vol] pg/mL High 180-914 [facility] Comment on above: Performed By: #### L 101.9900, L501.6710, L506.1001, L503.0106, L506.0400, L100.0100, L501.5200, L500.4050, L501.9520 ####[facility] [address] [place], [place], [address] Vitamin D,25 Hydroxyon 01-27 Vitamin D 25-OH 93.3 ng/mL Normal 30-100 [facility] Comment on above: Result Comment: Dinora min D Status Deficiency: <20 ng/mL (50nmol/L) Insufficiency: 20-30 ng/mL (50-75 nmol/L) Sufficiency: 30-100 ng/mL (75-250 nmol/L) Toxicity: >100 ng/mL (>250 nmol/L) Performed By: #### L 101.9900, L501.6710, L506.1001, L503.0106, L506.0400, L100.0100, L501.5200, L500.4050, L501.9520 ####[facility] [address] [place], [place], [id number] Orthopedic Visit Reporton Orthopedic Visit Report [facility] [address] [place] [address] [address] [place], [place] [address] OFFICE VISIT Date of Service: 12/23/24 MR#: [id number] Acct: [id number] Name: OZIEL BURTON Rep #: [id number] : 1970 Provider: Dr. Jai Miranda MD Age/Sex: 54/M Location: [facility] [place]: Signed Intake Vital Signs 07/15/24 09:55 [...] you fallen in the past year?: [facility] History of edema Tendinosis [...] week f (more content not included)... Normal [facility] L/S Spine Min 4 Viewson 11-27 L/S Spine Min 4 Views [facility] Imaging Services [address] [place], [place] [id number] L/S Spine Min 4 Views MR#: [id number] Acct: [id number] Name: OZIEL BURTON Rep #: [id number] : 1970 M 54 From: Raz Valdez MD PCP: Dr. Renzo Beatty DO Status: REG CLI Study: L/S Spine Min 4 Views Date of Exam: 12/21/24 Exam# [id number] Ordering Dr: Jai Miranda MD PROCEDURE: L/S [...] and postoperative changes as described. Reading Location: [id number] CC: Dr. Jai Miranda MD; Dr. Renzo Beatty DO Personnel Arbitrator: Signed Normal [facility] PT D/C Summary (1)on 025 PT D/C Summary (1) [facility] Physical Therapy [address] [place] [address] / REHABILITATION SERVICES DISCHARGE SUMMARY MR#: [id number] Acct: [id number] Name: OZIEL BURTON Rep #: [id number] : 1970 54 From: Denzel Reyes DPT Referring Dr.: Dr. Jai Miranda, MD Status: REG RCR Insurance: [employer]/[facility] SELF PAY INSURANCE Discharge Summary D/C [...] please feel free to call me at [phone]. Thank you for the referral of this patient. Sincerely, Denzel Brenner Sipos, DPT Balance/Gait/Function al tests Balance/Special Test Scores Oswestry Low Back Score: 0 Improvement % Improvement: 80 10/11/24 1136 CC: Dr. Jai Miranda MD; Dr. Renzo Beatty DO CLS Signed Normal [facility] Lumbar Spine 2 or 3 Viewson 09-21-2024 Lumbar Spine 2 or 3 Views [facility] Imaging Services [address] [place] [address] Lumbar Spine 2 or 3 Views MR#: [id number] Acct: [id number] Name: OZIEL BURTON Rep #: [id number] : 1970 M 54 From: Star Irwin MD PCP: Dr. Renzo Beatty DO Status: REG CLI Study: Lumbar Spine 2 or 3 Views Date of Exam: Exam# [id number] Ordering Dr: Jai Miranda MD PROCEDURE: LUMBAR [...] IMPRESSION: See above for details. Reading Location: [facility] CC: Dr. Jai Miranda MD; Dr. Renzo Beatty DO Personnel Arbitrator: Signed Normal [facility] Orthopedic Visit Reporton Orthopedic Visit Report [facility] [address] [place] [address] OFFICE VISIT Date of Service: 09/21/24 MR#: [id number] Acct: [id number] Name: OZIEL BURTON Rep #: [id number] : 1970 Provider: Dr. Jai Miranda MD Age/Sex: 54/M [place] [facility] [place] Status: Signed Intake Vital Signs 07/15/24 09:55 [...] 5=normal Details: (more content not included)... Normal [facility] Re-Evaluation - PT (1)on Re-Evaluation - PT (1) [facility] Physical Therapy [facility] [address] [place] [address] / REEVALUATION / MEDICARE RECERTIFICATION PHYSICAL THERAPY MR#: [id number] Acct: [id number] Name: OZIEL BURTON Rep #: [id number] : 1970 54 From: Denzel Reyes DPT Referring Dr.: Dr. Jai Miranda MD Status:REG RCR Insurance: [employer]/[facility] SELF PAY INSURANCE Re-Evaluation Intro: Dr. [...] do not hesitate to contact me at [phone] by phone or if you have questions or concerns regarding this new plan of care! Sincerely, Denzel Reyes, DPT 08/12/24 0720 CC: Dr. Jai Miranda MD; Dr. Renzo Beatty DO CLS Signed For Medicare only, by signing this I certify the plan of care. Physicians Signature Date Normal [facility] Lumbar Spine 2 or 3 Viewson 08-03-2024 Lumbar Spine 2 or 3 Views [facility] Imaging Services [address] [place], [place] [address] Lumbar Spine 2 or 3 Views MR#: [id number] Acct: [id number] Name: OZIEL BURTON Rep #: [id number] : 1970 M 54 From: Hernandez Armstrong i DO PCP: Dr. Renzo Beatty DO Status: REG CLI Study: Lumbar Spine 2 or 3 Views Date of Exam: Exam# [id number] Ordering Dr: Jai Miranda MD PROCEDURE: Lumbar [...] Jai Miranda MD; Dr. Renzo Beatty DO Personnel Arbitrator: Signed Normal [facility] Orthopedic Visit Reporton Orthopedic Visit Report [facility] [address] [place] [address] OFFICE VISIT Date of Service: 08/03/24 MR#: [id number] Acct: [id number] Name: OZIEL BURTON Rep #: [id number] : 1970 Provider: Dr. Jai Miranda MD Age/Sex: 54/M [place] [facility] [place] Status: Signed Intake Vital Signs 04/07/24 06:01 [...] for 2 hours. Patient had xrays at [facility] which are here for review. Ortho Exam General General: Yes no acute distress Neurologic: Yes alert and Yes oriented x3 Psycho (more content not included)... Normal [facility] Venous duplex ultrasound rep ortOrdered By: Edson Noguera on 07-16-2024 US Vein [facility] Cardiovascular Services [address] [place] [address] Venous Duplex US - Mo Extrem 07/15/24 1049 MR#: [id number] Acct: [id number] Name: OZIEL BURTON Rep #:[id number] : 1970 54 From: Edson Noguera MD Attending Dr: Eden Sorto, [employer]LTERED WORKSH[employer] WORKER-C Status: REG CLI Ordering Dr: Eden Sorto [employer] WORK[employer] WORKER-C Date: 07/15/24 Location: [facility] Sex: M C Admitted: Reason For Study [...] Date Dictated: 07/15/24 1049 Date Transcribed: 07/16/241906 Personnel Arbitrator: Signed [facility] Work Phone: Orthopedic Visit Reporton Orthopedic Visit Report [facility] [address] [place] [address] OFFICE VISIT Date of Service: 07/15/24 MR#: [id number] Acct: [id number] Name: OZIEL BURTON Rep #: [id number] : 1970 Provider: ELEAZAR singh Age/Sex: 54/M [place] [facility] [place] Status: Signed Intake Vital Signs 07/06/24 10:57 [...] the servic (more content not included)... Normal [facility] Venous Duplex US - Om Extre mon 07-15-2024 Venous Duplex US - Mo Extrem [facility] [address] [place] [address] Venous Duplex US - Mo Extrem 07/15/24 1049 MR#: [id number] Acct: [id number] Name: OZIEL BURTON Rep #: [id number] : 1970 54 From: Edson Noguera MD Attending Dr: Eden Sorto [employer]LTERED WORKSH[employer] WORKER-C Status: REG CLI Ordering Dr: Eden Sorto [employer] WORK[employer] WORKER-C Date: 07/15/24 Location: [facility] Sex: M C [...] Date Dictated: 07/15/24 1049 Date Transcribed: 07/16/241906 Personnel Arbitrator: Signed Normal [facility] Inital Evaluation (1) - PTon 07-14-2024 Inital Evaluation (1) - PT [facility] Physical Therapy [address] [place] [address] / REHABILITATION SERVICES INITIAL EVALUATION MR#: [id number] Acct: [id number] Name: OZIEL BURTON Rep #: [id number] : 1970 54 From: Denzel Reyes DPT Referring Dr.: Dr. Jai Miranda MD Status: REG RCR Insurance: [facility] [employer] SELF PAY INSURANCE Patient's Visit Information [...] perfusion Cryot (more content not included)... Normal [facility] Lumbar Spine 2 or 3 Viewson 07-06-2024 Lumbar Spine 2 or 3 Views [facility] Imaging Services [address] [address] Lumbar Spine 2 or 3 Views MR#: [id number] Acct: [id number] Name: OZIEL BURTON Rep #: [id number] : 1970 M 54 From: Renzo Newby MD PCP: Dr. Renzo Beatty DO Status: REG CLI Study: Lumbar Spine 2 or 3 Views Date of Exam: Exam# [id number] Ordering Dr: Yesenia Coy EXAM: XR Lumbosacral [...] IMPRESSION: Postoperative changes as above. Reading [facility] CC: MOUSTAPHA Montoya; Dr. Renzo Beatty DO Personnel Arbitrator: Signed Normal [facility] Orthopedic Visit Reporton Orthopedic Visit Report [facility] [address] [place], [place] [address] OFFICE VISIT Date of Service: 07/06/24 MR#: [id number] Acct: [id number] Name: OZIEL BURTON Rep #: [id number] : 1970 Provider: MOUSTAPHA Montoya Age/Sex: 54/M [place] [facility] [place] Status: Signed Intake Vital Signs 04/07/24 06:01 [...] documentation accuratel (more content not included)... Normal [facility] Basic Metabolic Profile (BMP )on 06-22-2024 BUN/CRE 13.1 RATIO Normal 10-20 [facility] Comment on above: Performed By: #### L 500.2500, L100.0500 ####[facility] [address] [place], [address] CA,Total 8.7 mg/dL Normal 8.5-10.1 [facility] Comment on above: Performed By: #### L 500.2500, L100.0500 ####[facility] [address] [place], [address] ECRCL 99.98 ml/min Normal [facility] Comment on above: Performed By: #### L 500.2500, L100.0500 ####[facility] [address] [place], [address] EST GFR - AA 92 mL/min Normal >60 [facility] Comment on above: Result Comment: Afri can Canadian GFR Calc Performed By: #### L 500.2500, L100.0500 ####[facility] [address] [place], [address] GAP 8 Normal 5-15 [facility] Comment on above: Performed By: #### L 500.2500, L100.0500 ####[facility] [address] [place], [address] Blood urea nitrogen (BUN)/cr eatinine ratioOrdered By: Yesenia Coy on 06-22-2024 Urea nitrogen/Creatinine [Mass ratio] 13.1 mg/mg 10-20 [facility] CBC-Complete Blood Cnt No Di ffon 06-22-2024 Erythrocyte distribution width (RBC) [Ratio] 13.0 % Normal 11.6-14.6 [facility] Comment on above: Performed By: #### L 500.2500, L100.0500 ####[facility] [address] [place], [address] Hematocrit (Bld) [Volume fraction] 39.7 % Low 40-54 [facility] Comment on above: Performed By: #### L 500.2500, L100.0500 ####[facility] [address] [place], [address] Hemoglobin (Bld) [Mass/Vol] 13.2 g/dL Normal 13.0-16.5 [facility] Comment on above: Performed By: #### L 500.2500, L100.0500 ####[facility] [address] [place], [address] MCH (RBC) [Entitic mass] 29.4 pg Normal 27.0-32.0 [facility] Comment on above: Performed By: #### L 500.2500, L100.0500 ####[facility] [address] [place], [address] MCHC (RBC) [Mass/Vol] 33.2 g/dL Normal 32-36 [facility] Comment on above: Performed By: #### L 500.2500, L100.0500 ####[facility] [address] [place], [address] MCV (RBC) [Entitic vol] 88.4 fL Normal 80-94 [facility] Comment on above: Performed By: #### L 500.2500, L100.0500 ####[facility] [address] [place], [address] Platelet mean volume (Bld) [Entitic vol] 10.7 fL Normal 6.2-12.0 [facility] Comment on above: Performed By: #### L 500.2500, L100.0500 ####[facility] [address] [place], [address] Platelets (Bld) [#/Vol] 194 10*3/uL Normal 150-450 [facility] Comment on above: Performed By: #### L 500.2500, L100.0500 ####[facility] [address] [place], [address] RBC (Bld) [#/Vol] 4.49 10*6/uL Low 4.6-6.2 [facility] Comment on above: Performed By: #### L 500.2500, L100.0500 ####[facility] [address] [place], [address] RDW SD 42.0 fl Normal 35.1-43.9 [facility] Comment on above: Performed By: #### L 500.2500, L100.0500 ####[facility] [address] [place], [address] WBC (Bld) [#/Vol] 10.4 10*3/uL Normal 4.4-11.0 [facility] Comment on above: Performed By: #### L 500.2500, L100.0500 ####[facility] [address] [place], [address] Carbon dioxide measurementOr dered By: Yesenia Coy on 06-22-2024 CO2 [Moles/Vol] 24.0 mmol/L Normal 21.0-32.0 [facility] Comment on above: Performed By: #### L 500.2500, L100.0500 ####[facility] [address] [place], [address] Chloride measurementOrdered By: Yesenia Coy on 06-22-2024 Chloride [Moles/Vol] 107 mmol/L Normal 98-107 [facility] Comment on above: Performed By: #### L 500.2500, L100.0500 ####[facility] [address] [place], [address] Erythrocyte distribution wid th ratioOrdered By: Yesenia Coy on 06-22-2024 Erythrocyte distribution width (RBC) [Ratio] 13.0 % 11.6-14.6 [facility] Erythrocyte distribution wid th standard deviationOrdered By: Yesenia Coy on 06-22-2024 Erythrocyte distribution width (RBC) [Entitic vol] 42.0 fL 35.1-43.9 [facility] Erythrocyte distribution width (RBC) [Ratio] 42.0 fl 35.1-43.9 [facility] Estimated glomerular filtrat ion rate (GFR) AmericanOrdered By: Yesenia Coy on 06-22-2024 Estimated GFR (MDRD) Amer 92 mL/min >60 [facility] Comment on above: GFR Calc Estimation of creatinine isac aranceOrdered By: Yesenia Coy on 06-22-2024 Estimated Creatinine Clearance Calc 99.98 ml/min [facility] Glomerular filtration rate ( GFR) estimationOrdered By: Yesenia Coy on 06-22-2024 Estimated GFR (MDRD) Non-Af Amer 76 mL/min >60 [facility] Comment on above: Non- GFR Calc GFR/1.73 sq M.predicted among non-blacks MDRD (S/P/Bld) [Vol rate/Area] 76 mL/min/{1.73_m2} Normal >60 [facility] Comment on above: Non- GFR Calc Result Comment: Non- GFR Calc Performed By: #### L 500.2500, L100.0500 ####[facility] [address] [place], [address] Glucose measurementOrdered B y: Yesenia Coy on 06-22-2024 Glucose [Mass/Vol] 126 mg/dL High 74-106 [facility] Comment on above: Fasting Glucose resu lt greater than or equal to 126 mg/dL suggests DIABETES MELLITUS per A.D.A. criteria. Result Comment: Fast ing Glucose result greater than or equal to 126 mg/dL suggests DIABETES MELLITUS per A.D.A. criteria. Performed By: #### L 500.2500, L100.0500 ####[facility] [address] [place], [place], [address] Hematocrit Auto (Bld) [Volum e fraction]Ordered By: Yesenia Coy on 06-22-2024 Hematocrit (Bld) [Volume fraction] 39.7 % Low 40-54 [facility] Hemoglobin measurementOrdere d By: Yesenia Coy on 06-22-2024 Hemoglobin (Bld) [Mass/Vol] 13.2 g/dL 13.0-16.5 [facility] Lumbar Spine 2 or 3 Viewson 06-22-2024 Lumbar Spine 2 or 3 Views [facility] Imaging Services [address] [place], [place] [address] Lumbar Spine 2 or 3 Views MR#: [id number] Acct: [id number] Name: OZIEL BURTON Rep #: [id number] : 1970 M 54 From: Thor tolbert MD PCP: Dr. Renzo Beatty DO Status: ADM IN Study: Lumbar Spine 2 or 3 Views Date of Exam: Exam# [id number] Ordering Dr: Yesenia Coy PROCEDURE: LUMBAR SPINE [...] multilevel fusion with prosthetic disc. Reading Location: [facility] CC: MOUSTAPHA Montoya; Dr. Renzo Beatty DO Personnel Arbitrator: Signed Normal [facility] MCV (mean corpuscular volume ) determinationOrdered By: Yesenia Coy on 06-22-2024 MCV (RBC) [Entitic vol] 88.4 fL 80-94 [facility] Mean corpuscular hemoglobin (MCH) determinationOrdered By: Yesenia Coy on 06-22-2024 MCH (RBC) [Entitic mass] 29.4 pg 27.0-32.0 [facility] Mean corpuscular hemoglobin concentration (MCHC) determinationOrdered By: Yesenia Coy on 06-22-2024 MCHC (RBC) [Mass/Vol] 33.2 g/dL 32-36 [facility] Mean platelet volume determi nationOrdered By: Yesenia Coy on 06-22-2024 Platelet mean volume (Bld) [Entitic vol] 10.7 fL 6.2-12.0 [facility] Platelet countOrdered By: Luisa Coy on 06-22-2024 Platelets (Bld) [#/Vol] 194 10*3/uL 150-450 [facility] Potassium measurementOrdered By: Yesenia Coy on 06-22-2024 Potassium [Moles/Vol] 4.0 mmol/L Normal 3.5-5.1 [facility] Comment on above: Performed By: #### L 500.2500, L100.0500 ####[facility] [address] [place], [place], [address] RBC Auto (Bld) [#/Vol]Ordere d By: Yesenia Coy on 06-22-2024 RBC (Bld) [#/Vol] 4.49 10*6/uL Low 4.6-6.2 [facility] Serum anion gap measurementO rdered By: Yesenia Coy on 06-22-2024 Anion gap [Moles/Vol] 8 mmol/L 5-15 [facility] Serum or plasma calcium chel urement (mass/volume)Ordered By: Yesenia Coy on 06-22-2024 Calcium [Mass/Vol] 8.7 mg/dL 8.5-10.1 [facility] Serum or plasma creatinine m easurement (mass/volume)Ordered By: Yesenia Coy on 06-22-2024 Creatinine [Mass/Vol] 1.07 mg/dL Normal 0.70-1.30 [facility] Comment on above: The validity of the calculated GFR & GFRAA in patients over 70 years has not been determined. Clinical correlation is essential. Result Comment: The validity of the calculated GFR GFRAA in patients over 70 years has not been determined. Clinical correlation is essential. Performed By: #### L 500.2500, L100.0500 ####[facility] [address], [address] Serum or plasma urea nitroge n measurement (mass/volume)Ordered By: Yesenia Coy on 06-22-2024 Urea nitrogen [Mass/Vol] 14 mg/dL Normal 7-18 [facility] Comment on above: Performed By: #### L 500.2500, L100.0500 ####[facility] [address], [address] Sodium levelOrdered By: Niyah Coy on 06-22-2024 Sodium [Moles/Vol] 139 mmol/L Normal 136-145 [facility] Comment on above: Performed By: #### L 500.2500, L100.0500 ####[facility] [address], [address] White blood cell (WBC) count Ordered By: Yesenia Coy on 06-22-2024 WBC (Bld) [#/Vol] 10.4 10*3/uL 4.4-11.0 [facility] Bedside Glucoseon 06-21-2024 FINGERSTICK GLU 73 mg/dL Low 74-106 [facility] Comment on above: Result Comment: RADHA WALLER OF PATIENT CARE PER NURSING PROTOCOL Performed By: #### L 4600.0100, L505.7010, L101.9900, L501.1400, L501.6710 #### [facility] [address], [address] [facility] By: Jai Miranda on 06-21-2024 Bedside Glucose (Misc Panel) 73 mg/dL Low 74-106 [facility] Comment on above: MANAGEMENT OF PATIEN T CARE PER NURSING PROTOCOL Glucose [Mass/Vol] 73 mg/dL Low 74-106 [facility] Comment on above: MANAGEMENT OF PATIEN T CARE PER NURSING PROTOCOL Lumbar Spine 2 or 3 Viewson 06-21-2024 Lumbar Spine 2 or 3 Views [facility] Imaging Services [address] [place] [address] Lumbar Spine 2 or 3 Views MR#: [id number] Acct: [id number] Name: OZIEL BURTON Rep #: [id number] : 1970 M 54 From: Gonsalo Morales MD PCP: Dr. Renzo Beatty DO Status: ADM IN Study: Lumbar Spine 2 or 3 Views Date of Exam: Exam# [id number] Ordering Dr: Jai Miranda MD EXAM: INTRAOPERATIVE [...] Jai Miranda MD; Dr. Renzo Beatty DO Personnel Arbitrator: Signed [facility] MR/POSTOP.ANE 06-21-2024 MR/POSTOP.[facility] Medical Records Department [address] [place] [address] Anesthesia Postop Eval I 06/21/24 1435 MR#: [id number] Acct: [id number] Name: OZIEL BURTON Rep #: [id number] : 1970 54 From: Rimma Donnelly CRNA PCP: Dr. Renzo Beatty DO Status:ADM IN Y Race: C Location: [place] [address] Anesthesia: Postop Eval I Current Vital Signs [...] completed: Yes 06/21/24 1436 Date Rimma Donnelly AUTO RADIATOR MECHANIC Cosigner Signature: Date CC: Signed Normal [facility] MR/NOSOHNLZ0jn 06-21-2024 [place] [facility] Medical Records Department [address] [place] [address] Anesthesia Postop Eval II 06/21/24 1525 MR#: [id number] Acct: [id number] Name: OZIEL BURTON Rep #: [id number] : 1970 54 From: Cesar Christy MD PCP: Dr. Renzo Beatty, DO Status:ADM IN Y Race: C Location: [place] [address] Anesthesia Postop Eval I Sum Postop Eval Completion status Anesthesia document: Postop Eval 1 completed: Yes Anesthesia Postop Eval I Summary Anesthesia Postop Eval I Summary: Anesthesia Postop Eval I: Assessment Summary Airway patent Yes 06/21/24 14:36 AUTO RADIATOR MECHANIC.HBARR Spontaneous unlabored Yes 06/21/24 14:36 AUTO RADIATOR MECHANIC.HBARR respirations Mental status Awake 06/21/24 14:36 AUTO RADIATOR MECHANIC.HBARR nausea No 06/21/24 14:36 AUTO RADIATOR MECHANIC.HBARR Vomiting No 06/21/24 14:36 AUTO RADIATOR MECHANIC.HBARR Anesthesia Postop Eval I: Fluid Summary Crystalloid volume administer 2,500 06/21/24 14:36 AUTO RADIATOR MECHANIC.HBARR (ml) Colloids volume administered ( ml) Blood Product volume administered (ml) Total IV fluid infused 2,500 06/21/24 14:36 AUTO RADIATOR MECHANIC.HBARR Anesthesia Postop Eval I: Summary Notes Anesthesia Complication No 06/21/24 14:36 AUTO RADIATOR MECHANIC.HBARR Anesthesia Complication Comment: Post-operative progress note Anesthesia: Postop Eval II Evaluation Mental status: Awake and Calm Pain Level: 4 nausea: No Vomiting: No Complications Anesthesia Complication: No 06/21/24 1525 Date Cesar Christy MD Cosigner Signature: Date CC: Signed Normal [facility] Operative Reporton Operative Report [facility] Medical Records Department [address] [place] [address] Operative Report 06/21/24 1633 MR#: [id number] Acct: [id number] Name: JANYOZIEL MAJOR VEL Rep #: [id number] : 1970 54 From: Mayco Johnson MD PCP: Dr. Renzo Beatty, DO Status:ADM IN Location: [facility] [id number] Operative Report (Standard) Operative Information Date of Procedure: 06/21/24 Pre-Operative Diagnosis: Preoperative diagnosis: L5-S1 spondylolisthesis, L3-S1 disc degeneration, stenosis with neurogenic claudication Post-Operative Diagnosis: Same Surgery/Procedure Performed: L3-S1 oblique lumbar interbody fusion (OLIF), minimally invasive left sided approach, lateral decubitus: ??? L3-4 anterolateral spinal fusion 45871 ??? L4-5 anterolateral fusion 86569/51 ??? L5-S1 anterolateral fusion 64891/51 ??? L3-4 insertion of cage 22490 ??? L4-5 insertion of cage 48830/51 ??? L5-S1 insertion of cage 37098/51 ??? Bone graft aspirate left iliac crest separate incision ??? Allograft cancellous chips manager of pharmacy: Yes Warp Hauler: Yesenia Coy Tasks completed by first aid instructor: Opening, Closing and Opening closing Type of [...] then with (more content not included)... Normal [facility] Operative Report [facility] Medical Records Department [address] [place] [address] Operative Report 06/21/24 1511 MR#: [id number] Acct: [id number] Name: OZIEL BURTON Rep #: [id number] : 1970 54 From: Jai Miranda MD PCP: Dr. Renzo Beatty, Status:ADM IN Location: [facility] AC-TBA-1 Procedures Musculoskeletal 20xxx-29xxx: Other Procedure See Report Operative Report (Standard) Operative Information Date of Procedure: 06/21/24 Pre-Operative Diagnosis: L5-S1 spondylolisthesis, L3-S1 disc degeneration with stenosis with neurogenic claudication Post-Operative Diagnosis: Same Surgery/Procedure Performed: L3-S1 posterior spinal instrumented fusion manager of pharmacy: Yes Warp Hauler: Yesenia Coy Tasks completed by first aid instructor: Closing, Implanting device, Hemostasis: Electrocautery and Retracting [...] fusion, prone: ??? L3-4 posterior spinal fusion 57792 ??? L3-S1 posterior pedicle screw instrumentation 22169 ??? L4-5 posterior fusion 60796/51 ??? L5-S1 posterior fusion 23831/51 ??? Allograft cancellous chips Attending Surgeon: Dr. [...] procedure well and no complications occurred. Depuy [place] cage Viper Prime minimally invasive pedicle screw instrumentation system was utilized in this case. No dural tear was identified intraoperatively. I was present for the entirety of the case and performed the surgery. Disc Sander Yesenia Coy PA-C. My physician boiler assistant operator was a vital (more content not included)... Normal [facility] Operative Report [facility] Medical Records Department [address] [place] [address] Operative Report 06/21/24 1506 MR#: [id number] Acct: [id number] Name: OZIEL BURTON Rep #: [id number] : 1970 54 From: Jai Miranda MD PCP: Dr. Renzo Beatty, Status:ADM IN Location: [facility] AC-TBA-1 Procedures Musculoskeletal 20xxx-29xxx: Other Procedure See Report Operative Report (Standard) Operative Information Date of Procedure: 06/21/24 Pre-Operative Diagnosis: L5-S1 spondylolisthesis, L3-S1 disc degeneration, stenosis with neurogenic claudication Post-Operative Diagnosis: Same Surgery/Procedure Performed: L3-S1 oblique lumbar to body fusion manager of pharmacy: Yes Warp Hauler: Mayco Johnson Tasks completed by first aid instructor: Other (Co-surgeon- vascular surgery- approach) Additional boiler assistant operator?: Yes Additional Disc Sander #2: Yesenia Coy Tasks completed by boiler assistant operator #2: Closing, Removing tissue, Hemostasis: Electrocautery and [...] lateral decubitus: ??? L3-4 anterolateral spinal fusion 88758 ??? L4-5 anterolateral fusion 79246/51 ??? L5-S1 anterolateral fusion 86278/51 ??? L3-4 insertion of cage 52819 ??? L4-5 insertion of cage 92845/51 ??? L5-S1 insertion of cage 99347/51 ??? Bone graft aspirate left iliac crest [...] utilized to move the bowel and peritoneum ntc-ne-sjy-way and psoas mu (more content not included)... Normal [facility] HIV - WCHon 06-15-2024 HIV Non-Reactive Normal Nonreactive [facility] Comment on above: Order Comment: Reaso n for Exam: PAT Performed By: #### L 3890.6300, L3890.6200, L3100.0300, L3890.6005 ####[facility] [address] [place], [address] Hepatitis B Surface Antibody on 06-15-2024 HEP B Surf Ab Non-Reactive Normal [facility] Comment on above: Order Comment: Reaso n for Exam: PAT Result Comment: Non Reactive: Inconsistent with immunity less than <10 mIU/mL Reactive: Consistent with immunity greater than or equal to 10 mIU/mL Performed By: #### L 3890.6300, L3890.6200, L3100.0300, L3890.6005 ####[facility] [address] [place], [address] Hepatitis C Antibodyon 06-15 Hepatitis C AB Non-Reactive Normal Nonreactive [facility] Comment on above: Order Comment: Reaso n for Exam: PAT Result Comment: Non Reactive: < 0.8 Equivocal: >/= 0.8 to < 1.0 Reactive: >/= 1.0 The CDC requires that a reactive/equivocal HCV antibody result be sent out for confirmation. HCV Quant by PCR testing. Performed By: #### L 3890.6300, L3890.6200, L3100.0300, L3890.6005 ####[facility] [address] [place], [address] Hepatitis A AB, Totalon 05-29 HEPATITIS A,TOT Negative Normal Negative [facility] Comment on above: Result Comment: Comm ent: The HAV total antibody assay detects both IgG and IgM but does not differentiate between them. A negative result suggests susceptibility to infection. A positive result could be due to vaccination, previously resolved infection or active infection. Testing for HAV IgM should be performed if active HAV infection is suspected. [facility] offers profiles that will automatically reflex positive HAV total antibody results to IgM (e.g., panel #[id number] HAV Antibody w/ Rfx). Performed at: [address] [id number] Property Coordinator: Walter Olmos PhD, Phone: [phone] Performed By: #### L 3890.6300, L3890.6200, L3100.0300, L3890.6005 ####[facility] [address] [place], [address] MRSA/SAID NASAL SCREENon MRSA+SAID SCRN Reason for Exam: PREOP MRSA MRSA Negative S. AUREUS S. aureus Negative Normal [facility] Comment on above: Performed By: #### L 4600.0100, L505.7010, L101.9900, L501.1400, L501.6710 #### [facility] [address] [place], [address] HBV surface IgG Ql (S)Ordere d By: Jai Miranda on 06-11-2024 Hepatitis B Surface Antibody Non-Reactive [facility] Comment on above: Non Reactive: Incons istent with immunity less than <10 mIU/mL Reactive: Consistent with immunity greater than or equal to 10 mIU/mL HIV 1 and HIV-2 antibody ass ay with HIV-1 p24 antigen detectionOrdered By: Jai Miranda on 06-11-2024 HIV 1+2 Ab+HIV1 p24 Ag IA Ql Non-Reactive Nonreactive [facility] HIV 1+2 Ab+HIV1 p24 Ag IA Ql Ordered By: Jai Miranda on 06-11-2024 HIV (1&2) Antibody Non-Reactive Nonreactive [facility] Hepatitis A virus total anti body assayOrdered By: Jai Miranda on 06-11-2024 Hepatitis A Antibody Total Negative Negative [facility] Comment on above: Comment: The [...] HAVtotal antibody results to IgM (e.g., panel #[id number] HAVAntibody w/ Rfx).Performed at: [address] [id number] Director: Walter Olmos PhD, Phone: [phone] Hepatitis C virus antibody a ssayOrdered By: Jai Miranda on 06-11-2024 Hepatitis C Antibody Non-Reactive Nonreactive [facility] Comment on above: Non Reactive: < 0.8 Equivocal: >/= 0.8 to < 1.0 Reactive: >/= 1.0The CDC requires that a reactive/equivocal HCV antibody result be sent out for confirmation. HCV Quant by PCR testing. MRSA screenOrdered By: Timoteo Miranda on 06-11-2024 MRSA DNA JUANI+probe Ql (Unsp spec) [facility] Nasal Screen MRSA/MSSA [facility] Magnesium measurementOrdered By: Jai Miranda on 06-11-2024 Magnesium [Mass/Vol] 1.9 mg/dL Normal 1.6-2.6 [facility] Comment on above: Performed By: #### L 4600.0100, L505.7010, L101.9900, L501.1400, L501.6710 #### [facility] [address] [place], [place], [address] Orthopedic Visit Reporton Orthopedic Visit Report [facility] [address] [place] [address] [address] [place] [address] OFFICE VISIT Date of Service: 06/11/24 MR#: [id number] Acct: [id number] Name: OZIEL BURTON Rep #: [id number] : 1970 Provider: Dr. Jai Miranda MD Age/Sex: 54/M [place] [facility] [place] Status: Signed Intake Vital Signs 04/07/24 06:01 [...] numbness bilaterally (more content not included)... Normal [facility] Serum hepatitis B virus surf mary antibody IgG detectionOrdered By: Jai Miranda on 06-11-2024 HBV surface IgG Ql (S) Non-Reactive [facility] Comment on above: Non Reactive: Incons istent with immunity less than <10 mIU/mL Reactive: Consistent with immunity greater than or equal to 10 mIU/mL Type AND Screen - PAT ONLYon 06-11-2024 Ab SCREEN GEL Negative Normal [facility] Comment on above: Order Comment: Surge ry Date: 06/21/24Reason for Laboratory Test [id number] LUMBAR FUSION Performed By: #### L 4600.0100, L505.7010, L101.9900, L501.1400, L501.6710 #### [facility] [address] [place], [address] ABO and Rh group Nom (Bld) Blood group A Rh(D) positive Normal [facility] Comment on above: Order Comment: Surge ry Date: 06/21/24Reason for Laboratory Test [id number] LUMBAR FUSION Performed By: #### L 4600.0100, L505.7010, L101.9900, L501.1400, L501.6710 #### [facility] [address] [place], [address] MR/PAT.AMAURYon 06-04-2024 MR/PAT.AMAURY [facility] Medical Records Department [address] [place] [address] PAT - Anesthesia 06/04/24 1331 MR#: [id number] Acct: [id number] Name: OZIEL BURTON Rep #: [id number] : 1970 54 From: Frederick Cuevas MD PCP: Dr. Renzo Beatty, DO Status:PRE IN Y Race: C Location: [facility] Pre-Assessment Diagnosis/Proposed Procedure Planned Operative Procedure(s): 360 Lumbar Fusion L3-4, L4-5 and L5-S1 Anesthesia History Anesthesia History - brick offbearer: Anesthesia History - brick offbearer Hx Hospitalization No 06/04/24 11:16 Any Problems [...] take am of surgery PONV PONV - brick offbearer: PONV - brick offbearer Female No 06/04/24 11:16 HX of Motion [...] 04/07/24 06:01 Respiratory Assessment Respiratory Assessment - brick offbearer: Respiratory Tract Infection Hx - brick offbearer Hx Respiratory Tract Infection No 06/04/24 11:16 STOP Sleep Apnea STOP Sleep Apnea - brick offbearer: STOP Sleep Apnea - brick offbearer Hx Hypertension Yes 06/04/24 11:16 Hx Sleep [...] Tobacco Use History Tobacco Use History - brick offbearer: Tobacco Use History - brick offbearer Tobacco Use Smoking Status Current some day smoker 06/04/24 11:16 Hx Tobacco Use Yes 06/04/24 11:16 Years Smoking Packs Smoked per Day Smoking Cessation Date was within the last 15 years Hx Smoking Cessation Date Hx Smoking Cessation No 06/04/24 11:16 Counseling Hematologic Medial History Hematologic Hx - brick offbearer: Hematologic 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 Normal [facility] 09-VC-Bgmwbqm DOrdered By: Salty Beatty on 05-17-2024 Vitamin D 25-Hydroxy 87.2 ng/mL [facility] Comment on above: Vitamin D 25(OH) Sta tus Range Deficiency <20 ng/mL (50nmol/L) Insufficiency 20 - 30 ng/mL (50 - 75 nmol/L) Sufficiency 30 - 100 ng/mL (75 - 250 nmol/L) Toxicity >100 ng/mL (>250 nmol/L) Absolute neutrophil countOrd ered By: Renzo Beatty on 05-17-2024 Neutrophils (Bld) [#/Vol] 3.4 10*3/uL 2.0-7.7 [facility] Albumin to globulin ratioOrd ered By: Renzo Beatty on 05-17-2024 Albumin/Globulin [Mass ratio] 1.3 {ratio} 0.9-2.4 [facility] Basophil percentageOrdered B y: Renzo Beatty on 05-17-2024 Basophils/100 WBC (Bld) 0.7 % 0-1 [facility] Bilirubin, totalOrdered By: Renzo Beatty on 05-17-2024 Bilirubin [Mass/Vol] 0.50 mg/dL 0.20-1.00 [facility] Comment on above: For patients on eltr ombopag therapy, use of Dimension [place] TBIL is not recommended. Blood urea nitrogen (BUN)/cr eatinine ratioOrdered By: Renzo Beatty on 05-17-2024 Urea nitrogen/Creatinine [Mass ratio] 21.9 mg/mg High 02-14 [facility] CBC W/Diff, Automatedon 04-29 Absolute Lymph 1.80 X10 3/uL Normal 0.83-4.51 [facility] Comment on above: Performed By: #### L 500.4050, L506.1000, L500.4100, L501.9520, L501.9910, L100.0100 #### [facility] [address] [place], [address] Absolute Neut 3.4 X10 3/uL Normal 2.0-7.7 [facility] Comment on above: Performed By: #### L 500.4050, L506.1000, L500.4100, L501.9520, L501.9910, L100.0100 #### [facility] [address] [place], [address] Basophils/100 WBC (Bld) 0.7 % Normal 0-1 [facility] Comment on above: Performed By: #### L 500.4050, L506.1000, L500.4100, L501.9520, L501.9910, L100.0100 #### [facility] [address] [place], [address] Eosinophils/100 WBC (Bld) 2.9 % Normal 0-5 [facility] Comment on above: Performed By: #### L 500.4050, L506.1000, L500.4100, L501.9520, L501.9910, L100.0100 #### [facility] [address] [place], [address] Erythrocyte distribution width (RBC) [Ratio] 13.2 % Normal 11.6-14.6 [facility] Comment on above: Performed By: #### L 500.4050, L506.1000, L500.4100, L501.9520, L501.9910, L100.0100 #### [facility] [address] [place], [address] Hematocrit (Bld) [Volume fraction] 48.1 % Normal 40-54 [facility] Comment on above: Performed By: #### L 500.4050, L506.1000, L500.4100, L501.9520, L501.9910, L100.0100 #### [facility] [address] [place], [address] Hemoglobin (Bld) [Mass/Vol] 15.6 g/dL Normal 13.0-16.5 [facility] Comment on above: Performed By: #### L 500.4050, L506.1000, L500.4100, L501.9520, L501.9910, L100.0100 #### [facility] [address] [place], [address] IG% 0.200 Normal 0.0-0.9 [facility] Comment on above: Result Comment: IG% - Immature Granulocytes (promyelocytes, myelocytes and metamyelocytes) > 1% indicates that a LEFT SHIFT is Present. Performed By: #### L 500.4050, L506.1000, L500.4100, L501.9520, L501.9910, L100.0100 #### [facility] [address] [place], [address] Lymphocytes/100 WBC (Bld) 30.6 % Normal 19-41 [facility] Comment on above: Performed By: #### L 500.4050, L506.1000, L500.4100, L501.9520, L501.9910, L100.0100 #### [facility] [address] [place], [address] MCH (RBC) [Entitic mass] 29.4 pg Normal 27.0-32.0 [facility] Comment on above: Performed By: #### L 500.4050, L506.1000, L500.4100, L501.9520, L501.9910, L100.0100 #### [facility] [address] [place], [address] MCHC (RBC) [Mass/Vol] 32.4 g/dL Normal 32-36 [facility] Comment on above: Performed By: #### L 500.4050, L506.1000, L500.4100, L501.9520, L501.9910, L100.0100 #### [facility] [address] [place], [address] MCV (RBC) [Entitic vol] 90.8 fL Normal 80-94 [facility] Comment on above: Performed By: #### L 500.4050, L506.1000, L500.4100, L501.9520, L501.9910, L100.0100 #### [facility] [address] [place], [address] Monocytes/100 WBC (Bld) 8.7 % Normal 0-10 [facility] Comment on above: Performed By: #### L 500.4050, L506.1000, L500.4100, L501.9520, L501.9910, L100.0100 #### [facility] [address] [place], [address] Neutrophils/100 WBC (Bld) 56.9 % Normal 47-70 [facility] Comment on above: Performed By: #### L 500.4050, L506.1000, L500.4100, L501.9520, L501.9910, L100.0100 #### [facility] [address] [place], [address] Nucleated RBC (Bld) [#/Vol] 0 10*3/uL Normal 0-5 [facility] Comment on above: Performed By: #### L 500.4050, L506.1000, L500.4100, L501.9520, L501.9910, L100.0100 #### [facility] [address] [place], [address] Platelet mean volume (Bld) [Entitic vol] 11.2 fL Normal 6.2-12.0 [facility] Comment on above: Performed By: #### L 500.4050, L506.1000, L500.4100, L501.9520, L501.9910, L100.0100 #### [facility] [address] [place], [address] Platelets (Bld) [#/Vol] 212 10*3/uL Normal 150-450 [facility] Comment on above: Performed By: #### L 500.4050, L506.1000, L500.4100, L501.9520, L501.9910, L100.0100 #### [facility] [address] [place], [address] RBC (Bld) [#/Vol] 5.30 10*6/uL Normal 4.6-6.2 [facility] Comment on above: Performed By: #### L 500.4050, L506.1000, L500.4100, L501.9520, L501.9910, L100.0100 #### [facility] [address] [place], [address] RDW SD 43.8 fl Normal 35.1-43.9 [facility] Comment on above: Performed By: #### L 500.4050, L506.1000, L500.4100, L501.9520, L501.9910, L100.0100 #### [facility] [address] [place], [address] WBC (Bld) [#/Vol] 5.9 10*3/uL Normal 4.4-11.0 [facility] Comment on above: Performed By: #### L 500.4050, L506.1000, L500.4100, L501.9520, L501.9910, L100.0100 #### [facility] [address] [place], [address] Carbon dioxide measurementOr dered By: Renzo Betaty on 05-17-2024 CO2 [Moles/Vol] 29.0 mmol/L 21.0-32.0 [facility] Chloride measurementOrdered By: Renzo Beatty on 05-17-2024 Chloride [Moles/Vol] 109 mmol/L High 98-107 [facility] Comprehensive Metabolic Prof ilon 05-17-2024 Albumin [Mass/Vol] 3.8 g/dL Normal 3.2-5.0 [facility] Comment on above: Order Comment: NOT F ASTING Performed By: #### L 500.4050, L506.1000, L500.4100, L501.9520, L501.9910, L100.0100 ####[facility] [address] [place], [address] Albumin/Globulin [Mass ratio] 1.3 {ratio} Normal 0.9-2.4 [facility] Comment on above: Order Comment: NOT F ASTING Performed By: #### L 500.4050, L506.1000, L500.4100, L501.9520, L501.9910, L100.0100 ####[facility] [address] [place], [address] ALK P 56 U/L Normal 45-117 [facility] Comment on above: Order Comment: NOT F ASTING Performed By: #### L 500.4050, L506.1000, L500.4100, L501.9520, L501.9910, L100.0100 ####[facility] [address] [place], [address] ALT [Catalytic activity/Vol] 21 U/L Normal 16-61 [facility] Comment on above: Order Comment: NOT F ASTING Performed By: #### L 500.4050, L506.1000, L500.4100, L501.9520, L501.9910, L100.0100 ####[facility] [address] [place], [address] AST [Catalytic activity/Vol] 10 U/L Low 15-37 [facility] Comment on above: Order Comment: NOT F ASTING Performed By: #### L 500.4050, L506.1000, L500.4100, L501.9520, L501.9910, L100.0100 ####[facility] [address] [place], [address] Bilirubin [Mass/Vol] 0.50 mg/dL Normal 0.20-1.00 [facility] Comment on above: Order Comment: NOT F ASTING Result Comment: For patients on eltrombopag therapy, use of Dimension [place] TBIL is not recommended. Performed By: #### L 500.4050, L506.1000, L500.4100, L501.9520, L501.9910, L100.0100 ####[facility] [address] [place], [address] BUN/CRE 21.9 RATIO High 10-20 [facility] Comment on above: Order Comment: NOT F ASTING Performed By: #### L 500.4050, L506.1000, L500.4100, L501.9520, L501.9910, L100.0100 ####[facility] [address] [place], [address] CA,Total 9.3 mg/dL Normal 8.5-10.1 [facility] Comment on above: Order Comment: NOT F ASTING Performed By: #### L 500.4050, L506.1000, L500.4100, L501.9520, L501.9910, L100.0100 ####[facility] [address] [place], [address] Chloride [Moles/Vol] 109 mmol/L High 98-107 [facility] Comment on above: Order Comment: NOT F ASTING Performed By: #### L 500.4050, L506.1000, L500.4100, L501.9520, L501.9910, L100.0100 ####[facility] [address] [place], [address] CO2 [Moles/Vol] 29.0 mmol/L Normal 21.0-32.0 [facility] Comment on above: Order Comment: NOT F ASTING Performed By: #### L 500.4050, L506.1000, L500.4100, L501.9520, L501.9910, L100.0100 ####[facility] [address] [place], [address] Creatinine [Mass/Vol] 1.14 mg/dL Normal 0.70-1.30 [facility] Comment on above: Order Comment: NOT F ASTING Result Comment: The validity of the calculated GFR GFRAA in patients over 70 years has not been determined. Clinical correlation is essential. Performed By: #### L 500.4050, L506.1000, L500.4100, L501.9520, L501.9910, L100.0100 ####[facility] [address] [place], [address] EST GFR - AA 85 mL/min Normal >60 [facility] Comment on above: Order Comment: NOT F ASTING Result Comment: Afri can [place] GFR Calc Performed By: #### L 500.4050, L506.1000, L500.4100, L501.9520, L501.9910, L100.0100 ####[facility] [address] [place], [address] GAP 2 Low 5-15 [facility] Comment on above: Order Comment: NOT F ASTING Performed By: #### L 500.4050, L506.1000, L500.4100, L501.9520, L501.9910, L100.0100 ####[facility] [address] [place], [address] GFR/1.73 sq M.predicted among non-blacks MDRD (S/P/Bld) [Vol rate/Area] 71 mL/min/{1.73_m2} Normal >60 [facility] Comment on above: Order Comment: NOT F ASTING Result Comment: Non- GFR Calc Performed By: #### L 500.4050, L506.1000, L500.4100, L501.9520, L501.9910, L100.0100 ####[facility] [address] [place], [address] Globulin (S) [Mass/Vol] 2.9 g/dL Normal 2.2-4.2 [facility] Comment on above: Order Comment: NOT F ASTING Performed By: #### L 500.4050, L506.1000, L500.4100, L501.9520, L501.9910, L100.0100 ####[facility] [address] [place], [address] Glucose [Mass/Vol] 104 mg/dL Normal 74-106 [facility] Comment on above: Order Comment: NOT F ASTING Result Comment: Fast ing Glucose result from 100 to 125 mg/dL suggests IMPAIRED HOMEOSTASIS per A.D.A. criteria. Performed By: #### L 500.4050, L506.1000, L500.4100, L501.9520, L501.9910, L100.0100 ####[facility] [address] [place], [address] Potassium [Moles/Vol] 4.2 mmol/L Normal 3.5-5.1 [facility] Comment on above: Order Comment: NOT F ASTING Performed By: #### L 500.4050, L506.1000, L500.4100, L501.9520, L501.9910, L100.0100 ####[facility] [address] [place], [address] Sodium [Moles/Vol] 140 mmol/L Normal 136-145 [facility] Comment on above: Order Comment: NOT F ASTING Performed By: #### L 500.4050, L506.1000, L500.4100, L501.9520, L501.9910, L100.0100 ####[facility] [address] [place], [address] T PROT 6.7 g/dL Normal 6.4-8.2 [facility] Comment on above: Order Comment: NOT F ASTING Performed By: #### L 500.4050, L506.1000, L500.4100, L501.9520, L501.9910, L100.0100 ####[facility] [address] [place], [address] Urea nitrogen [Mass/Vol] 25 mg/dL High 7-18 [facility] Comment on above: Order Comment: NOT F ASTING Performed By: #### L 500.4050, L506.1000, L500.4100, L501.9520, L501.9910, L100.0100 ####[facility] [address] [place], [address] Eosinophil percentageOrdered By: Renzo Beatty on 05-17-2024 Eosinophils/100 WBC (Bld) 2.9 % 0-5 [facility] Erythrocyte distribution wid th ratioOrdered By: Renzo Beatty on 05-17-2024 Erythrocyte distribution width (RBC) [Ratio] 13.2 % 11.6-14.6 [facility] Erythrocyte distribution wid th standard deviationOrdered By: Renzo Beatty on 05-17-2024 Erythrocyte distribution width (RBC) [Entitic vol] 43.8 fL 35.1-43.9 [facility] Estimated glomerular filtrat ion rate (GFR) AmericanOrdered By: Renzo Beatty on 05-17-2024 Estimated GFR (MDRD) Amer 85 mL/min >60 [facility] Comment on above: GFR Calc Glomerular filtration rate ( GFR) estimationOrdered By: Renzo Beatty on 05-17-2024 Estimated GFR (MDRD) Non-Af Amer 71 mL/min >60 [facility] Comment on above: Non- GFR Calc Glucose measurementOrdered B y: Renzo Beatty on 05-17-2024 Glucose [Mass/Vol] 104 mg/dL 74-106 [facility] Comment on above: Fasting Glucose resu lt from 100 to 125 mg/dL suggests IMPAIRED HOMEOSTASIS per A.D.A. criteria. Hematocrit Auto (Bld) [Volum e fraction]Ordered By: Renzo Beatty on 05-17-2024 Hematocrit (Bld) [Volume fraction] 48.1 % 40-54 [facility] Hemoglobin measurementOrdere d By: Renzo Beatty on 05-17-2024 Hemoglobin (Bld) [Mass/Vol] 15.6 g/dL 13.0-16.5 [facility] High density lipoprotein (HD L) measurementOrdered By: Renzo Beatty on 05-17-2024 Cholesterol in HDL [Mass/Vol] 52 mg/dL >40 [facility] Comment on above: The drugs N-Acetylcy steine and Metamizole may falsely depress this assay. Reference Range HDL <40 mg/dL Low HDL Cholesterol HDL >or= 60 mg/dL High HDL Cholesterol Immature granulocytes/100 WB C Auto (Bld)Ordered By: Renzo Beatty on 05-17-2024 Immature granulocytes/100 WBC (Bld) 0.200 % 0.0-0.9 [facility] Comment on above: IG% - Immature Granu locytes (promyelocytes, myelocytes and metamyelocytes) > 1% indicates that a LEFT SHIFT is Present. Laboratory - Chemistry and C hemistry - challengeOrdered By: Renzo Beatty on 05-17-2024 AST [Catalytic activity/Vol] 10 U/L Low 15-37 [facility] Lipid Profileon 05-17-2024 Cholesterol [Mass/Vol] 161 mg/dL Normal 200 [facility] Comment on above: Order Comment: NOT F ASTING Result Comment: <200 mg/dL Desirable 200-240 mg/dL Borderline >240 mg/dL High Risk Performed By: #### L 500.4050, L506.1000, L500.4100, L501.9520, L501.9910, L100.0100 ####[facility] [address], [address] Cholesterol in HDL [Mass/Vol] 52 mg/dL Normal [facility] Comment on above: Order Comment: NOT F ASTING Result Comment: The drugs N-Acetylcysteine and Metamizole may falsely depress this assay. Reference Range HDL <40 mg/dL Low HDL Cholesterol HDL >or= 60 mg/dL High HDL Cholesterol Performed By: #### L 500.4050, L506.1000, L500.4100, L501.9520, L501.9910, L100.0100 ####[facility] [address] [place], [address] Cholesterol in LDL [Mass/Vol] 72 mg/dL Normal 0-130 [facility] Comment on above: Order Comment: NOT F ASTING Performed By: #### L 500.4050, L506.1000, L500.4100, L501.9520, L501.9910, L100.0100 ####[facility] [address] [place], [address] Cholesterol in VLDL [Mass/Vol] 37 mg/dL Normal 5-40 [facility] Comment on above: Order Comment: NOT F ASTING Performed By: #### L 500.4050, L506.1000, L500.4100, L501.9520, L501.9910, L100.0100 ####[facility] [address], [address] Triglyceride [Mass/Vol] 184 mg/dL Normal [facility] Comment on above: Order Comment: NOT F ASTING Result Comment: The drugs N-Acetylcysteine and Metamizole may falsely depress this assay. Serum Triglycerides Reference Interval Normal <150 mg/dL Borderline high 150 - 199 mg/dL High 200 - 499 mg/dL Very High > or = 500 mg/dL Performed By: #### L 500.4050, L506.1000, L500.4100, L501.9520, L501.9910, L100.0100 ####[facility] [address] [place], [address] Low density lipoprotein (LDL ) cholesterol measurementOrdered By: Renzo Beatty on 05-17-2024 Cholesterol in LDL [Mass/Vol] 72 mg/dL 0-130 [facility] Lymphocytes Auto (Unsp spec) [#/Vol]Ordered By: Renzo Beatty on 05-17-2024 Lymphocytes (Bld) [#/Vol] 1.80 10*3/uL 0.83-4.51 [facility] Lymphocytes/100 WBC Auto (Un sp spec)Ordered By: Renzo Beatty on 05-17-2024 Lymphocytes/100 WBC (Bld) 30.6 % 19-41 [facility] MCV (mean corpuscular volume ) determinationOrdered By: Renzo Beatty on 05-17-2024 MCV (RBC) [Entitic vol] 90.8 fL 80-94 [facility] Mean corpuscular hemoglobin (MCH) determinationOrdered By: Renzo Beatty on 05-17-2024 MCH (RBC) [Entitic mass] 29.4 pg 27.0-32.0 [facility] Mean corpuscular hemoglobin concentration (MCHC) determinationOrdered By: Renzo Beatty on 05-17-2024 MCHC (RBC) [Mass/Vol] 32.4 g/dL 32-36 [facility] Mean platelet volume determi nationOrdered By: Renzo Beatty on 05-17-2024 Platelet mean volume (Bld) [Entitic vol] 11.2 fL 6.2-12.0 [facility] Monocyte percentageOrdered B y: Renzo Beatty on 05-17-2024 Monocytes/100 WBC (Bld) 8.7 % 0-10 [facility] Neutrophil percentageOrdered By: Renzo Beatty on 05-17-2024 Neutrophils/100 WBC (Bld) 56.9 % 47-70 [facility] Nucleated red blood cell per centageOrdered By: Renzo Beatty on 05-17-2024 Nucleated RBC/100 WBC (Bld) [Ratio] 0 % 0-5 [facility] Orthopedic Visit Reporton Orthopedic Visit Report [facility] [address] [place] [address] [address] [place] [address] OFFICE VISIT Date of Service: 05/17/24 MR#: [id number] Acct: [id number] Name: OZIEL BURTON Rep #: [id number] : 1970 Provider: Dr. Ernesto unger MD Age/Sex: 54/M [place] [facility] [place]: Signed Intake Vital Signs 04/07/24 06:01 [...] Plan: OZIEL (more content not included)... Normal [facility] PSA,Total - Annual Screenon 05-17-2024 PSA,TOT SCREEN 0.69 ng/mL Normal 0.00-4.00 [facility] Comment on above: Order Comment: NOT F ASTING Result Comment: This test was performed using the TPSA assay method for the [employer] chemistry system. Values obtained with different assay methods cannot be used interchangably. When changing PSA assays in the course of monitoring a patient, additional sequential testing should be carried out to confirm baseline values. Performed By: #### L 500.4050, L506.1000, L500.4100, L501.9520, L501.9910, L100.0100 ####[facility] [address] [place], [address] Platelet countOrdered By: Claudia Beatty on 05-17-2024 Platelets (Bld) [#/Vol] 212 10*3/uL 150-450 [facility] Potassium measurementOrdered By: Renzo Beatty on 05-17-2024 Potassium [Moles/Vol] 4.2 mmol/L 3.5-5.1 [facility] RBC Auto (Bld) [#/Vol]Ordere d By: Renzo Beatty on 05-17-2024 RBC (Bld) [#/Vol] 5.30 10*6/uL 4.6-6.2 [facility] Screening prostate specific antigen (PSA) measurementOrdered By: Renzo Beatty on 05-17-2024 Prostate Specific Antigen Screen 0.69 ng/mL 0.00-4.00 [facility] Comment on above: This test was perfor med using the TPSA assay method for the[employer] chemistry system. Values obtained with differentassay methods cannot be used interchangably.When changing PSA assays in the course of monitoring apatient, additional sequential testing should be carriedout to confirm baseline values. Serum anion gap measurementO rdered By: Renzo Beatty on 05-17-2024 Anion gap [Moles/Vol] 2 mmol/L Low 5-15 [facility] Serum globulin measurementOr dered By: Renzo Beatty on 05-17-2024 Globulin (S) [Mass/Vol] 2.9 g/dL 2.2-4.2 [facility] Serum or plasma alanine hinson otransferase (ALT) measurementOrdered By: Renzo Beatty on 05-17-2024 ALT [Catalytic activity/Vol] 21 U/L 16-61 [facility] Serum or plasma albumin chel urement (mass/volume)Ordered By: Renzo Beatty on 05-17-2024 Albumin [Mass/Vol] 3.8 g/dL 3.2-5.0 [facility] Serum or plasma alkaline maribel sphatase measurementOrdered By: Renzo Beatty on 05-17-2024 ALP [Catalytic activity/Vol] 56 U/L 45-117 [facility] Serum or plasma calcium chel urement (mass/volume)Ordered By: Renzo Beatty on 05-17-2024 Calcium [Mass/Vol] 9.3 mg/dL 8.5-10.1 [facility] Serum or plasma cholesterol measurement (mass/volume)Ordered By: Renzo Beatty on 05-17-2024 Cholesterol [Mass/Vol] 161 mg/dL <200 [facility] Comment on above: <200 mg/dL Desirable 200-240 mg/dL Borderline >240 mg/dL High Risk Serum or plasma creatinine m easurement (mass/volume)Ordered By: Renzo Beatty on 05-17-2024 Creatinine [Mass/Vol] 1.14 mg/dL 0.70-1.30 [facility] Comment on above: The validity of the calculated GFR & GFRAA in patients over 70 years has not been determined. Clinical correlation is essential. Serum or plasma urea nitroge n measurement (mass/volume)Ordered By: Renzo Beatty on 05-17-2024 Urea nitrogen [Mass/Vol] 25 mg/dL High 7-18 [facility] Sodium levelOrdered By: Renzo Beatty on 05-17-2024 Sodium [Moles/Vol] 140 mmol/L 136-145 [facility] TSH QnOrdered By: Renzo womack on 05-17-2024 Thyroid Stimulating Hormone (TSH) 0.616 uIU/mL 0.358-3.740 [facility] Thyroid Stim Hormone (TSH)on 05-17-2024 TSH 0.616 uIU/mL Normal 0.358-3.740 [facility] Comment on above: Order Comment: NOT F ASTING Performed By: #### L 500.4050, L506.1000, L500.4100, L501.9520, L501.9910, L100.0100 ####[facility] [address] [place], [place], [address] Total proteinOrdered By: Jalyn Beatty on 05-17-2024 Protein [Mass/Vol] 6.7 g/dL 6.4-8.2 [facility] Triglycerides measurementOrd ered By: Renzo Jaci on 05-17-2024 Triglyceride [Mass/Vol] 184 mg/dL <199 [facility] Comment on above: The drugs N-Acetylcy steine and Metamizole may falsely depress this assay.Serum Triglycerides Reference Interval Normal <150 mg/dL Borderline high 150 - 199 mg/dL High 200 - 499 mg/dL Very High > or = 500 mg/dL Very low density lipoprotein (VLDL) cholesterol measurementOrdered By: Renzo Beatty on 05-17-2024 VLDL Cholesterol 37 mg/dL 5-40 [facility] Vitamin D,25 Hydroxyon 05-17 Vitamin D 25-OH 87.2 ng/mL Normal [facility] Comment on above: Result Comment: Dinora min D 25(OH) Status Range Deficiency <20 ng/mL (50nmol/L) Insufficiency 20 - 30 ng/mL (50 - 75 nmol/L) Sufficiency 30 - 100 ng/mL (75 - 250 nmol/L) Toxicity >100 ng/mL (>250 nmol/L) Performed By: #### L 500.4050, L506.1000, L500.4100, L501.9520, L501.9910, L100.0100 #### [facility] [address] [place], [place], [address] White blood cell (WBC) count Ordered By: Renzo Jaci on 05-17-2024 WBC (Bld) [#/Vol] 5.9 10*3/uL 4.4-11.0 [facility] Inital Evaluation (1) - PTon 04-27-2024 Inital Evaluation (1) - PT [facility] Physical Therapy [facility] [place] [address] / REHABILITATION SERVICES INITIAL EVALUATION MR#: [id number] Acct: [id number] Name: OZIEL BURTON Rep #: [id number] : 1970 54 From: Adelaide Franec DPT Referring Dr.: Dr. Ernesto Ramirez MD Status: R EG RCR Insurance: [facility] [employer]/[facility] SELF PAY INSURANCE Patient's Visit Information [...] Shoulder: Isometric: 3+/5 with pain, Elbow: 4+/5, Regulatory Affairs Assistant: equal to other side Observation: incisions well [...] to be FAXED BACK to us at [phone] for Medicare purposes. For Medicare only, by signing this I certify the plan of care. Please let me know if there are questions or concerns regarding this plan of care. Physician Signature: Date : 04/27/24 1053 CC: Dr. Renzo Beatty DO; Dr. Ernesto Ramirez MD ELR Signed Normal [facility] Orthopedic Visit Reporton Orthopedic Visit Report [facility] [address] [place] [address] OFFICE VISIT Date of Service: 04/19/24 MR#: [id number] Acct: [id number] Name: OZIEL BURTON Rep #: [id number] : 1970 Provider: Dr. Ernesto unger MD Age/Sex: 53/M [place] [facility] [facility] [place] Status: Signed Intake Vital Signs 01/30/24 09:48 04/07/24 06:01 Height 5 ft 9 in 5 ft 9 in Intake Visit Reasons: left shoulder Chief Complaint: post op left shoulder Accompanied by: Self Allergies olmesartan medoxomil (From BenMENA PRESTIGEr) Allergy (Verified 04/19/24 09:48) Itching Medications ???Medication [...] start physical (more content not included)... Normal [facility] Orthopedic Visit Reporton Orthopedic Visit Report [facility] [place] [facility] [address] [place] [address] OFFICE VISIT Date of Service: 04/09/24 MR#: [id number] Acct: [id number] Name: OZIEL BURTON Rep #: [id number] : 1970 Provider: Dr. Ernesto unger MD Age/Sex: 53/M [place] [facility] [facility] [place] Status: Signed Intake Vital Signs 01/30/24 09:48 [...] by me, Dr. Ernesto Ramirez MD 04/09/24 1317. Part of today???s visit was documented by [...] chronic Qualifie (more content not included)... Normal [facility] Discharge Instructionon 03-28 Discharge Instruction [facility] Medical Records Department [address] [place] [address] Instructions for Home/Discharge Instructions 04/07/24 0816 MR#: [id number] Acct: [id number] Name: OZIEL BURTON Rep #: [id number] : 1970 53 From: Ernesto Ramirez MD PCP: Dr. Renzo Beatty, DO Status:REG [facility] [place] Discharge Instructions Diet Discharge Diet: No restrictions [...] Consulting Providers: Krishan Evans Instructions Print Language: Greek Discharge Orders/Prescriptions Prescriptions: New oxycodone-acetaminoph en [Endocet] [...] 12 Lead EKG (Routine) Timeframe: 20240330 Facility: [facility] - Location: Cardiovascular Services Ordered By: Dr. Krishan Evans Referrals / Follow Up: Renzo Beatty DO [Primary Care Provider] - Ernesto Ramirez MD [Med Staff - Active Staff] - Disposition Disposition (needs filled in before D/C Order can be placed): Home, Self Care 04/07/24 08 Ernesto Ramirez MD CC: Dr. Krishan Evans MD; Dr. Renzo Beatty DO Signed Normal [facility] MR/POSTOP.AMAURY 04-07-2024 MR/POSTOP.[facility] Medical Records Department [address] [place] [address] Anesthesia Postop Eval I 04/07/24 0930 MR#: [id number] Acct: [id number] Name: OZIEL BURTON Rep #: [id number] : 1970 53 From: Wander Cervantes CRNA PCP: Dr. Renzo Beatty DO Status:REG SDC Y Race: C Location: [place] [address] Anesthesia: Postop Eval I Current Vital Signs [...] completed: Yes 04/07/24 0931 Date Wander Blough AUTO RADIATOR MECHANIC Cosigner Signature: Date CC: Signed Normal [facility] MR/[id number] 04-07-2024 [facility] Medical Records Department [address] [place] [address] Anesthesia Postop Eval II 04/07/24 1127 MR#: [id number] Acct: [id number] Name: OZIEL BURTON Rep #: [id number] : 1970 53 From: Frederick Cuevas MD PCP: Dr. Renzo Beatty, DO Status:[facility] Y Race: C Location: [facility] [place] Anesthesia Postop Eval I Sum Postop Eval Completion status Anesthesia document: Postop Eval 1 completed: Yes Anesthesia Postop Eval I Summary Anesthesia Postop Eval I Summary: Anesthesia Postop Eval I: Assessment Summary Airway patent Yes 04/07/24 09:31 AUTO RADIATOR MECHANIC.JBLOU Spontaneous unlabored Yes 04/07/24 09:31 AUTO RADIATOR MECHANIC.JBLOU respirations Mental status Awake,Calm 04/07/24 09:31 AUTO RADIATOR MECHANIC.JBLOU nausea No 04/07/24 09:31 AUTO RADIATOR MECHANIC.JBLOU Vomiting No 04/07/24 09:31 AUTO RADIATOR MECHANIC.JBLOU Anesthesia Postop Eval I: Fluid Summary Crystalloid volume administer 1,000 04/07/24 09:31 AUTO RADIATOR MECHANIC.JBLOU (ml) Colloids volume administered ( ml) Blood Product volume administered (ml) Total IV fluid infused 1,000 04/07/24 09:31 AUTO RADIATOR MECHANICVIKAS Anesthesia Postop Eval I: Summary Notes Anesthesia Complication No 04/07/24 09:31 AUTO RADIATOR MECHANIC.MANAVLOMarah Anesthesia Complication Comment: Post-operative progress note Anesthesia: Postop Eval II Evaluation Mental status: Awake Pain Level: 0 nausea: No Vomiting: No 04/07/24 1127 Date Frederick Barreto Signature: Date CC: Signed Normal [facility] Operative Reporton 4 Operative Report [facility] Medical Records Department [address] [place] [address] Operative Report 04/07/2420 MR#: [id number] Acct: [id number] Name: OZIEL BURTON Rep #: [id number] : 1970 53 From: Ernesto Ramirez MD PCP: Dr. Renzo Beatty, DO Status:[facility] Location: [place] [address] Problems Associated Problem List Diagnoses (1) Tendinitis of both rotator cuffs: (2) Left shoulder pain: Procedures Musculoskeletal 20xxx-29xxx: Other Procedure See Report Operative Report (Standard) Operative Information Date of Procedure: 04/07/24 Pre-Operative Diagnosis: L shoulder impingement syndrome, bursitis Post-Operative Diagnosis: same Surgery/Procedure Performed: L shoulder arthroscopy, subacromial decompression, debridement. manager of pharmacy: Yes Warp Hauler: brooks fox Tasks completed by first aid instructor: Retracting Additional boiler assistant operator?: No Type of Anesthesia: Block,Regional and General [...] the office in 2 days time. CPT 07235, [address] Surgical Findings: impingement, bursitis, tendonitis, partial fraying biceps and subscap Complications Complications: No Admit VTE Documentation VTE Present on Admission: No VTE Mechan Device Prophylaxis: SCD's VTE Pharm Prophylaxis ordered?: No Reason prophylaxis not ordered: Treatment Not Indicated 04/07/24 0832 Cosigner Signature (if applicable): CC: Dr. Krishan Evans MD; Dr. Renzo Beatty DO; Dr. Ernesto Ramirez MD Signed Normal [facility] Orthopedic Visit Reporton Orthopedic Visit Report [facility] [address] [place] [address] OFFICE VISIT Date of Service: 04/05/24 MR#: [id number] Acct: [id number] Name: OZIEL BURTON Rep #: [id number] : 1970 Provider: Dr. Jai Miranda MD Age/Sex: 53/M [place] [facility] [place] Status: Signed Intake Vital Signs 01/30/24 09:48 [...] by me, Dr. Jai Miranda MD 04/05/24 9518. Part of today???s visit was documented by [...] has progr (more content not included)... Normal [facility] Dexa Bone Density Studyon Dexa Bone Density Study [facility] Imaging Services [address] [place] [address] Dexa Bone Density Study MR#: [id number] Acct: [id number] Name: OZIEL BURTON Rep #: [id number] : 1970 M 53 From: Thor tolbert MD PCP: Dr. Renzo Beatty DO Status: REG [facility] Study: Dexa Bone Density Study Date of Exam: 03/31/24 Exam# [id number] Ordering Dr: Renzo Beatty DO [id number] STUDY: DUAL ENERGY X-RAY ABSORPTIOMETRY / DXA [...] EST , CC: Dr. Renzo Beatty DO Personnel Arbitrator: Signed [facility] 12 Lead EKGon 03-29-2024 12 Lead EKG [facility] Cardiovascular Services [address] [place] [address] 12 Lead EKG 03/29/24 0929 MR#: [id number] Acct: [id number] Name: OZIEL BURTON Rep #: [id number] : 1970 53 From: Rickey Winkler MD Attending Dr: Dr. Ernesto Ramirez MD Status: HI E SDC Ordering Dr: Ernesto Ramirez MD Date: 03/29/24 Location: [facility] [place] Sex: M C Admitted: Test Reason : PREOP Blood Pressure : */* mmHG Vent. Rate : 55 BPM Atrial Rate : 55 BPM P-R Int : 164 ms QRS Dur : 84 ms QT Int : 434 ms P-R-T Axes : 23 -3 10 degrees QTcB Int : 415 ms Sinus bradycardia with sinus arrhythmia Otherwise normal ECG Confirmed by Rickey Winkler ([id number]), art editor KARLA LOU ([id number]) on 03/30/2024 5:58:00 AM Referred By: Ernesto Ramirez Confirmed By: Rickey Winkler 03/30/24 0558 Date Rickey Winkler MD CC: Dr. Renzo Beatty DO; Dr. Ernesto Ramirez MD Signed [facility] CBC-Complete Blood Cnt No Di ffon 03-29-2024 Erythrocyte distribution width (RBC) [Ratio] 13.3 % Normal 11.6-14.6 [facility] Comment on above: Performed By: #### L 100.0500 ####[facility] [address] [place], [address] Hematocrit (Bld) [Volume fraction] 45.0 % Normal 40-54 [facility] Comment on above: Performed By: #### L 100.0500 ####[facility] [address] [place], [address] Hemoglobin (Bld) [Mass/Vol] 15.0 g/dL Normal 13.0-16.5 [facility] Comment on above: Performed By: #### L 100.0500 ####[facility] [address] [place], [address] MCH (RBC) [Entitic mass] 30.2 pg Normal 27.0-32.0 [facility] Comment on above: Performed By: #### L 100.0500 ####[facility] [address] [place], [address] MCHC (RBC) [Mass/Vol] 33.3 g/dL Normal 32-36 [facility] Comment on above: Performed By: #### L 100.0500 ####[facility] [address] [place], [address] MCV (RBC) [Entitic vol] 90.5 fL Normal 80-94 [facility] Comment on above: Performed By: #### L 100.0500 ####[facility] [address] [place], [address] Platelet mean volume (Bld) [Entitic vol] 10.8 fL Normal 6.2-12.0 [facility] Comment on above: Performed By: #### L 100.0500 ####[facility] [address] [place], [address] Platelets (Bld) [#/Vol] 184 10*3/uL Normal 150-450 [facility] Comment on above: Performed By: #### L 100.0500 ####[facility] [address] [place], [address] RBC (Bld) [#/Vol] 4.97 10*6/uL Normal 4.6-6.2 [facility] Comment on above: Performed By: #### L 100.0500 ####[facility] [address] [place], [address] RDW SD 43.4 fl Normal 35.1-43.9 [facility] Comment on above: Performed By: #### L 100.0500 ####[facility] [address] [place], [address] WBC (Bld) [#/Vol] 6.0 10*3/uL Normal 4.4-11.0 [facility] Comment on above: Performed By: #### L 100.0500 ####[facility] [address] [place], [address] Erythrocyte distribution wid th ratioOrdered By: Krishan Evans on 03-29-2024 Erythrocyte distribution width (RBC) [Ratio] 13.3 % 11.6-14.6 [facility] Erythrocyte distribution wid th standard deviationOrdered By: Krishan Evans on 03-29-2024 Erythrocyte distribution width (RBC) [Entitic vol] 43.4 fL 35.1-43.9 [facility] Hematocrit Auto (Bld) [Volum e fraction]Ordered By: Krishan Evans on 03-29-2024 Hematocrit (Bld) [Volume fraction] 45.0 % 40-54 [facility] Hemoglobin measurementOrdere d By: Krishan Evans on 03-29-2024 Hemoglobin (Bld) [Mass/Vol] 15.0 g/dL 13.0-16.5 [facility] MCV (mean corpuscular volume ) determinationOrdered By: Krishan Evans on 03-29-2024 MCV (RBC) [Entitic vol] 90.5 fL 80-94 [facility] Mean corpuscular hemoglobin (MCH) determinationOrdered By: Krishan Evans on 03-29-2024 MCH (RBC) [Entitic mass] 30.2 pg 27.0-32.0 [facility] Mean corpuscular hemoglobin concentration (MCHC) determinationOrdered By: Krishan Evans on 03-29-2024 MCHC (RBC) [Mass/Vol] 33.3 g/dL 32-36 [facility] Mean platelet volume determi nationOrdered By: Krishan Evans on 03-29-2024 Platelet mean volume (Bld) [Entitic vol] 10.8 fL 6.2-12.0 [facility] Platelet countOrdered By: Melvin on 03-29-2024 Platelets (Bld) [#/Vol] 184 10*3/uL 150-450 [facility] RBC Auto (Bld) [#/Vol]Ordere d By: Krishan Evans on 03-29-2024 RBC (Bld) [#/Vol] 4.97 10*6/uL 4.6-6.2 [facility] White blood cell (WBC) count Ordered By: Krishan Evans on 03-29-2024 WBC (Bld) [#/Vol] 6.0 10*3/uL 4.4-11.0 [facility] Spine Lumbar (Routine)on Spine Lumbar (Routine) [facility] Imaging Services [address] [place] [id number] Spine Lumbar (Routine) MR#: [id number] Acct: [id number] Name: OZIEL BURTON Rep #: [id number] : 1970 M 53 From: Irvin germain DO PCP: Dr. Renzo Beatty, DO Status: REG CLI Study: Spine Lumbar (Routine) Date of Exam: 03/26/24 Exam# [id number] Ordering Dr: Jai Miranda MD [id number] EXAM: MR LUMBAR SPINE WITHOUT INTRAVENOUS CONTRAST [...] Jai Miranda MD; Dr. Renzo Beatty DO Personnel Arbitrator: Signed Normal [facility] CCP IgG Antibodieson 024 CCP IgG Ab. 6 units Normal 0-19 [facility] Comment on above: Result Comment: Nega tive <20 Weak positive 20 - 39 Moderate positive 40 - 59 Strong positive >59 Performed at: [address] [id number] Property Coordinator: Walter Olmos PhD, Phone: [phone] Performed By: #### L 4600.0100, L505.7010, L101.9900, L501.1400, L501.6710 #### [facility] [address] [place], [place], [id number] CRPon 03-05-2024 C-REACTIVE PROT < 2.90 Normal 0.0-3.0 [facility] Comment on above: Result Comment: C-Re active Protein (CRP) provides useful information for the diagnosis, therapy and monitoring of inflammatory processes and associated diseases. For the evaluation of Relative Risk for Cardiovascular Disease, a High Sensitivity CRP (HSCRP) should be ordered. Performed By: #### L 4600.0100, L505.7010, L101.9900, L501.1400, L501.6710 #### [facility] Laboratory [address] [place], [address] Erythrocyte Sed Rateon 03-05 SED RATE < 1 Normal 0-20 [facility] Comment on above: Performed By: #### L 4600.0100, L505.7010, L101.9900, L501.1400, L501.6710 #### [facility] [address] [place], [place], [id number] Rheumatoid Factoron 03-05-20 24 RHEUMATOID FAC < 10.0 Normal <15 [facility] Comment on above: Performed By: #### L 4600.0100, L505.7010, L101.9900, L501.1400, L501.6710 #### [facility] [address] [place], [address] Uric Acidon 03-05-2024 URIC 5.1 mg/dL Normal 3.5-7.2 [facility] Comment on above: Result Comment: The drugs N-Acetylcysteine and Metamizole may falsely depress this assay. Performed By: #### L 4600.0100, L505.7010, L101.9900, L501.1400, L501.6710 #### [facility] [address] [place], [address] Basophil percentageOrdered B y: Renzo Beatty on 05-14-2023 Cholesterol [Mass/Vol] 143 mg/dL <200 [facility] Comment on above: <200 mg/dL Desirable 200-240 mg/dL Borderline >240 mg/dL High Risk Triglyceride [Mass/Vol] 162 mg/dL <199 [facility] Comment on above: The drugs N-Acetylcy steine and Metamizole may falsely depress this assay.Serum Triglycerides Reference Interval Normal <150 mg/dL Borderline high 150 - 199 mg/dL High 200 - 499 mg/dL Very High > or = 500 mg/dL High density lipoprotein (HD L) measurementOrdered By: Renzo Beatty on 05-14-2023 Cholesterol in HDL (Body fld) [Mass/Vol] 42 mg/dL >40 [facility] Comment on above: The drugs N-Acetylcy steine and Metamizole may falsely depress this assay. Reference Range HDL <40 mg/dL Low HDL Cholesterol HDL >or= 60 mg/dL High HDL Cholesterol Low density lipoprotein (LDL ) cholesterol measurementOrdered By: Renzo Beatty on 05-14-2023 Cholesterol in LDL (Body fld) [Moles/Vol] 69 mg/dL 0-130 [facility] Screening prostate specific antigen (PSA) measurementOrdered By: Renzo Beatty on 05-14-2023 Prostate specific Ag IA [Mass/Vol] 0.46 ng/mL 0.00-4.00 [facility] Comment on above: This test was perfor med using the TPSA assay method for the[facility] chemistry system. Values obtained with differentassay methods cannot be used interchangably.When changing PSA assays in the course of monitoring apatient, additional sequential testing should be carriedout to confirm baseline values. Very low density lipoprotein (VLDL) cholesterol measurementOrdered By: Renzo Beatty on 05-14-2023 Cholesterol in VLDL Calc [Moles/Vol] 32 mg/dL 5-40 [facility] Whole blood hemoglobin A1c/t otal hemoglobin ratio (mass fraction)Ordered By: Renzo Beatty on 05-14-2023 HbA1c (Bld) [Mass fraction] 4.9 % 3.8-5.6 [facility] Comment on above: Normal < 5.7 % Predi abetic 5.7 - 6.4 % Diabetic >or= 6.5 % Please note range changes. Basophil percentageOrdered B y: Jason Fritz on 01-31-2023 WBC (Bld) [#/Vol] 7.6 10*3/uL 4.4-11.0 [facility] Blood erythrocytes count (nu mber/volume)Ordered By: Jason Fritz on 01-31-2023 RBC (Bld) [#/Vol] 4.19 10*6/uL 4.6-6.2 [facility] Blood hemoglobin measurement (mass/volume)Ordered By: Jason Fritz on 01-31-2023 Hemoglobin (Bld) [Mass/Vol] 13.0 g/dL 13.0-16.5 [facility] Blood platelet mean volumeOr dered By: Jason Fritz on 01-31-2023 Platelet mean volume (Bld) [Entitic vol] 10.6 fL 6.2-12.0 [facility] Determination of erythrocyte mean corpuscular volume (MCV)Ordered By: Jason Fritz on 01-31-2023 MCV (RBC) [Entitic vol] 90.2 fL 80-94 [facility] Hematocrit Auto (Bld) [Volum e fraction]Ordered By: Jason Fritz on 01-31-2023 Hematocrit (Bld) [Volume fraction] 37.8 % 40-54 [facility] Laboratory - Hematology and Cell countsOrdered By: Jason Fritz on 01-31-2023 Erythrocyte distribution width (RBC) [Entitic vol] 43.8 fL 35.1-43.9 [facility] Erythrocyte distribution width (RBC) [Ratio] 13.3 % 11.6-14.6 [facility] MCH (RBC) [Entitic mass] 31.0 pg 27.0-32.0 [facility] MCHC Auto (RBC) [Mass/Vol]Or dered By: Jason Fritz on 01-31-2023 MCHC (RBC) [Mass/Vol] 34.4 g/dL 32-36 [facility] Comment on above: Delta: 32.3 on 01/30 Platelets bldOrdered By: Migue Fritz on 01-31-2023 Platelets (Bld) [#/Vol] 184 10*3/uL 150-450 [facility] Basophil percentageOrdered B y: Jason Fritz on 01-29-2023 Chloride [Moles/Vol] 108 mmol/L 98-107 [facility] Glucose [Mass/Vol] 151 mg/dL 74-106 [facility] Comment on above: Fasting Glucose resu lt greater than or equal to 126 mg/dL suggests DIABETES MELLITUS per A.D.A. criteria. Potassium [Moles/Vol] 4.1 mmol/L 3.5-5.1 [facility] Sodium [Moles/Vol] 138 mmol/L 136-145 [facility] Laboratory - Chemistry and C hemistry - challengeOrdered By: Jason Fritz on 01-29-2023 CO2 [Moles/Vol] 24.0 mmol/L 21.0-32.0 [facility] Urea nitrogen/Creatinine [Mass ratio] 17.0 mg/mg 10-20 [facility] No Panel InformationOrdered By: Jason Fritz on 01-29-2023 Estimated Creatinine Clearance Calc 75.40 ml/min [facility] Estimated GFR (MDRD) Amer 88 mL/min >60 [facility] Comment on above: GFR Calc Estimated GFR (MDRD) Non-Af Amer 72 mL/min >60 [facility] Comment on above: Non- GFR Calc Serum or plasma calcium chel urement (mass/volume)Ordered By: Jason Fritz on 01-29-2023 Calcium [Mass/Vol] 8.8 mg/dL 8.5-10.1 [facility] Serum or plasma creatinine m easurement (mass/volume)Ordered By: Jason Fritz on 01-29-2023 Creatinine [Mass/Vol] 1.12 mg/dL 0.70-1.30 [facility] Comment on above: The validity of the calculated GFR & GFRAA in patients over 70 years has not been determined. Clinical correlation is essential. Serum or plasma urea nitroge n measurement (mass/volume)Ordered By: Jason Fritz on 01-29-2023 Urea nitrogen [Mass/Vol] 19 mg/dL 7-18 [facility] Thin prep Papanicolaou smear with manual screeningOrdered By: Jason Fritz on 01-29-2023 Thin prep Papanicolaou smear with manual screening 6 5-15 [facility] Glucose Glucometer (BldC) [M ass/Vol]Ordered By: Jason Fritz on 01-28-2023 Glucose [Mass/Vol] 81 mg/dL 74-106 [facility] Comment on above: MANAGEMENT OF PATIEN T CARE PER NURSING PROTOCOL Absolute lymphocyte countOrd ered By: Jason Fritz on 01-15-2023 Lymphocytes Auto (Unsp spec) [#/Vol] 1.68 10*3/uL 0.83-4.51 [facility] Activated partial thrombopla stin time (aPTT) in platelet poor plasma by coagulation aOrdered By: Jason Fritz on 01-15-2023 aPTT Coag (PPP) [Time] 25.4 s 24.1-36.2 [facility] Basophil percentageOrdered B y: Jason Fritz on 01-15-2023 Basophils/100 WBC (Bld) 0.7 % 0-1 [facility] Eosinophils/100 WBC (Bld) 2.8 % 0-5 [facility] Neutrophils (Bld) [#/Vol] 3.6 10*3/uL 2.0-7.7 [facility] Neutrophils/100 WBC (Bld) 59.8 % 47-70 [facility] Blood lymphocytes/100 leukoc ytesOrdered By: Jason Fritz on 01-15-2023 Lymphocytes/100 WBC (Bld) 27.8 % 19-41 [facility] Blood monocytes/100 leukocyt esOrdered By: Jason Fritz on 01-15-2023 Monocytes/100 WBC (Bld) 8.6 % 0-10 [facility] INR in Blood by Coagulation assayOrdered By: Jason Fritz on 01-15-2023 INR Coag (Bld) [Relative time] 1.0 {INR} [facility] Laboratory - Chemistry and C hemistry - challengeOrdered By: Mayco Clarke on 01-15-2023 Magnesium [Mass/Vol] 2.2 mg/dL 1.6-2.6 [facility] Laboratory - CoagulationOrde red By: Jason Fritz on 01-15-2023 PT Coag (PPP) [Time] 12.7 s 11.7-14.9 [facility] Laboratory - Hematology and Cell countsOrdered By: Jason Fritz on 01-15-2023 Immature granulocytes/100 WBC (Bld) 0.300 % 0.0-0.9 [facility] Comment on above: IG% - Immature Granu locytes (promyelocytes, myelocytes and metamyelocytes) > 1% indicates that a LEFT SHIFT is Present. Nucleated RBC/100 WBC (Bld) [Ratio] 0 % 0-5 [facility] No Panel InformationOrdered By: Jason Frtiz on 01-15-2023 Nasal Screen MRSA/MSSA [facility] Fructosamine 172 umol/L 0-285 [facility] Comment on above: Published reference interval for apparently healthysubjects between age 20 and 60 is 205 - 285 umol/L and in apoorly controlled diabetic population is 228 - 563 umol/Lwith a mean of 396 umol/L.Performed at: [address] [id number] Director: Walter Olmos PhD, Phone: [phone] Whole blood hemoglobin A1c/t otal hemoglobin ratio (mass fraction)Ordered By: Jason Fritz on 01-15-2023 HbA1c (Bld) [Mass fraction] 5.1 % 3.8-5.6 [facility] Comment on above: Normal < 5.7 % Predi abetic 5.7 - 6.4 % Diabetic >or= 6.5 % Please note range changes. Basophil percentageOrdered B y: Dr. Fritz on 08-08-2022 WBC (Bld) [#/Vol] 7.8 10*3/uL 4.4-11.0 [facility] Blood erythrocytes count (nu mber/volume)Ordered By: Dr. Fritz on 08-08-2022 RBC (Bld) [#/Vol] 4.17 10*6/uL 4.6-6.2 [facility] Blood hemoglobin measurement (mass/volume)Ordered By: Dr. Fritz on 08-08-2022 Hemoglobin (Bld) [Mass/Vol] 12.7 g/dL 13.0-16.5 [facility] Blood platelet mean volumeOr dered By: Dr. Fritz on 08-08-2022 Platelet mean volume (Bld) [Entitic vol] 10.3 fL 6.2-12.0 [facility] Determination of erythrocyte mean corpuscular volume (MCV)Ordered By: Dr. Fritz on 08-08-2022 MCV (RBC) [Entitic vol] 91.1 fL 80-94 [facility] Hematocrit Auto (Bld) [Volum e fraction]Ordered By: Dr. Fritz on 08-08-2022 Hematocrit (Bld) [Volume fraction] 38.0 % 40-54 [facility] Laboratory - Hematology and Cell countsOrdered By: Dr. Fritz on 08-08-2022 Erythrocyte distribution width (RBC) [Entitic vol] 45.1 fL 35.1-43.9 [facility] Erythrocyte distribution width (RBC) [Ratio] 13.5 % 11.6-14.6 [facility] MCH (RBC) [Entitic mass] 30.5 pg 27.0-32.0 [facility] MCHC Auto (RBC) [Mass/Vol]Or dered By: Dr. Fritz on 08-08-2022 MCHC (RBC) [Mass/Vol] 33.4 g/dL 32-36 [facility] Platelets bldOrdered By: Dr. Fritz on 08-08-2022 Platelets (Bld) [#/Vol] 166 10*3/uL 150-450 [facility] Basophil percentageOrdered B y: Dr. Fritz on 08-06-2022 Chloride [Moles/Vol] 109 mmol/L 98-107 [facility] Glucose [Mass/Vol] 118 mg/dL 74-106 [facility] Comment on above: Fasting Glucose resu lt from 100 to 125 mg/dL suggests IMPAIRED HOMEOSTASIS per A.D.A. criteria. Potassium [Moles/Vol] 4.5 mmol/L 3.5-5.1 [facility] Sodium [Moles/Vol] 138 mmol/L 136-145 [facility] Laboratory - Chemistry and C hemistry - challengeOrdered By: Dr. Fritz on 08-06-2022 CO2 [Moles/Vol] 29.0 mmol/L 21.0-32.0 [facility] Urea nitrogen/Creatinine [Mass ratio] 14.6 mg/mg 10-20 [facility] No Panel InformationOrdered By: Dr. Fritz on 08-06-2022 Estimated Creatinine Clearance Calc 79.32 ml/min [facility] Estimated GFR (MDRD) Amer 97 mL/min >60 [facility] Comment on above: GFR Calc Estimated GFR (MDRD) Non-Af Amer 80 mL/min >60 [facility] Comment on above: Non- GFR Calc Serum or plasma calcium chel urement (mass/volume)Ordered By: Dr. Fritz on 08-06-2022 Calcium [Mass/Vol] 9.1 mg/dL 8.5-10.1 [facility] Serum or plasma creatinine m easurement (mass/volume)Ordered By: Dr. Fritz on 08-06-2022 Creatinine [Mass/Vol] 1.03 mg/dL 0.70-1.30 [facility] Comment on above: The validity of the calculated GFR & GFRAA in patients over 70 years has not been determined. Clinical correlation is essential. Serum or plasma urea nitroge n measurement (mass/volume)Ordered By: Dr. Fritz on 08-06-2022 Urea nitrogen [Mass/Vol] 15 mg/dL 7-18 [facility] Thin prep Papanicolaou smear with manual screeningOrdered By: Dr. Fritz on 08-06-2022 Thin prep Papanicolaou smear with manual screening 0 5-15 [facility] Glucose Glucometer (BldC) [M ass/Vol]Ordered By: Dr. Fritz on 08-05-2022 Glucose [Mass/Vol] 91 mg/dL 74-106 [facility] Comment on above: MANAGEMENT OF PATIEN T CARE PER NURSING PROTOCOL No Panel InformationOrdered By: Dr. Fritz on 08-02-2022 Nasal Screen MRSA/MSSA [facility] INR in Blood by Coagulation assayOrdered By: Dr. Fritz on 07-31-2022 INR Coag (Bld) [Relative time] 1.1 {INR} [facility] Laboratory - Chemistry and C hemistry - challengeOrdered By: Dr. Clarke on 07-31-2022 Magnesium [Mass/Vol] 2.2 mg/dL 1.6-2.6 [facility] Laboratory - CoagulationOrde red By: Dr. Fritz on 07-31-2022 aPTT Coag (Bld) [Time] 26.5 s 24.1-36.2 [facility] PT Coag (PPP) [Time] 13.7 s 11.7-14.9 [facility] No Panel InformationOrdered By: Dr. Fritz on 07-31-2022 Fructosamine 197 umol/L 0-285 [facility] Comment on above: Published reference interval for apparently healthysubjects between age 20 and 60 is 205 - 285 umol/L and in apoorly controlled diabetic population is 228 - 563 umol/Lwith a mean of 396 umol/L.Performed at: [address] Director: Walter Olmos PhD, Phone: [phone] No Panel InformationOrdered By: Jason Fritz on 07-31-2022 Nasal Screen MRSA/MSSA [facility] Whole blood hemoglobin A1c/t otal hemoglobin ratio (mass fraction)Ordered By: Dr. Fritz on 07-31-2022 HbA1c (Bld) [Mass fraction] 5.3 % 3.8-5.6 [facility] Comment on above: Normal < 5.7 % Predi abetic 5.7 - 6.4 % Diabetic >or= 6.5 % Please note range changes. Absolute lymphocyte countOrd ered By: Dr. Beatty on 07-15-2022 Lymphocytes Auto (Unsp spec) [#/Vol] 1.81 10*3/uL 0.83-4.51 [facility] Basophil percentageOrdered B y: Dr. Beatty on 07-15-2022 Basophils/100 WBC (Bld) 0.4 % 0-1 [facility] Chloride [Moles/Vol] 110 mmol/L 98-107 [facility] Eosinophils/100 WBC (Bld) 0.9 % 0-5 [facility] Glucose [Mass/Vol] 71 mg/dL 74-106 [facility] Neutrophils (Bld) [#/Vol] 5.4 10*3/uL 2.0-7.7 [facility] Neutrophils/100 WBC (Bld) 66.2 % 47-70 [facility] Potassium [Moles/Vol] 4.0 mmol/L 3.5-5.1 [facility] Sodium [Moles/Vol] 145 mmol/L 136-145 [facility] WBC (Bld) [#/Vol] 8.2 10*3/uL 4.4-11.0 [facility] Blood erythrocytes count (nu mber/volume)Ordered By: Dr. Beatty on 07-15-2022 RBC (Bld) [#/Vol] 5.34 10*6/uL 4.6-6.2 [facility] Blood hemoglobin measurement (mass/volume)Ordered By: Dr. Beatty on 07-15-2022 Hemoglobin (Bld) [Mass/Vol] 16.0 g/dL 13.0-16.5 [facility] Blood lymphocytes/100 leukoc ytesOrdered By: Dr. Beatty on 07-15-2022 Lymphocytes/100 WBC (Bld) 22.1 % 19-41 [facility] Blood monocytes/100 leukocyt esOrdered By: Dr. Beatty on 07-15-2022 Monocytes/100 WBC (Bld) 9.9 % 0-10 [facility] Blood platelet mean volumeOr dered By: Dr. Beatty on 07-15-2022 Platelet mean volume (Bld) [Entitic vol] 10.9 fL 6.2-12.0 [facility] Determination of erythrocyte mean corpuscular volume (MCV)Ordered By: Dr. Beatty on 07-15-2022 MCV (RBC) [Entitic vol] 92.3 fL 80-94 [facility] Hematocrit Auto (Bld) [Volum e fraction]Ordered By: Dr. Beatty on 07-15-2022 Hematocrit (Bld) [Volume fraction] 49.3 % 40-54 [facility] Laboratory - Chemistry and C hemistry - challengeOrdered By: Dr. Beatty on 07-15-2022 CO2 [Moles/Vol] 32.0 mmol/L 21.0-32.0 [facility] Urea nitrogen/Creatinine [Mass ratio] 20.9 mg/mg 10-20 [facility] Laboratory - Hematology and Cell countsOrdered By: Dr. Beatty on 07-15-2022 Erythrocyte distribution width (RBC) [Entitic vol] 45.0 fL 35.1-43.9 [facility] Erythrocyte distribution width (RBC) [Ratio] 13.3 % 11.6-14.6 [facility] Immature granulocytes/100 WBC (Bld) 0.500 % 0.0-0.9 [facility] Comment on above: IG% - Immature Granu locytes (promyelocytes, myelocytes and metamyelocytes) > 1% indicates that a LEFT SHIFT is Present. MCH (RBC) [Entitic mass] 30.0 pg 27.0-32.0 [facility] Nucleated RBC/100 WBC (Bld) [Ratio] 0 % 0-5 [facility] MCHC Auto (RBC) [Mass/Vol]Or dered By: Dr. Beatty on 07-15-2022 MCHC (RBC) [Mass/Vol] 32.5 g/dL 32-36 [facility] No Panel InformationOrdered By: Dr. Beatty on 07-15-2022 Estimated GFR (MDRD) Amer 90 mL/min >60 [facility] Comment on above: GFR Calc Estimated GFR (MDRD) Non-Af Amer 74 mL/min >60 [facility] Comment on above: Non- GFR Calc Platelets bldOrdered By: Dr. Beatty on 07-15-2022 Platelets (Bld) [#/Vol] 232 10*3/uL 150-450 [facility] Serum or plasma calcium chel urement (mass/volume)Ordered By: Dr. Beatty on 07-15-2022 Calcium [Mass/Vol] 9.0 mg/dL 8.5-10.1 [facility] Serum or plasma creatinine m easurement (mass/volume)Ordered By: Dr. Beatty on 07-15-2022 Creatinine [Mass/Vol] 1.10 mg/dL 0.70-1.30 [facility] Comment on above: The validity of the calculated GFR & GFRAA in patients over 70 years has not been determined. Clinical correlation is essential. Serum or plasma urea nitroge n measurement (mass/volume)Ordered By: Dr. Beatty on 07-15-2022 Urea nitrogen [Mass/Vol] 23 mg/dL 7-18 [facility] Thin prep Papanicolaou smear with manual screeningOrdered By: Dr. Beatty on 07-15-2022 Thin prep Papanicolaou smear with manual screening 3 5-15 [facility] Laboratory - Microbiology an d Antimicrobial susceptibilityon 04-11-2022 SARS-CoV-2 (COVID-19) RNA JUANI+probe Ql (Unsp spec) Not detected [facility] No Panel Informationon 04-11 Influenza Types A,B Rapid (Clinic) Not detected [facility] Absolute lymphocyte counton 02-09-2022 Lymphocytes Auto (Unsp spec) [#/Vol] 1.37 10*3/uL 0.83-4.51 [facility] Work Phone: Basophil percentageon 2021 Basophils/100 WBC (Bld) 0.4 % 0-1 [facility] Work Phone: Bilirubin [Mass/Vol] 0.70 mg/dL 0.20-1.00 [facility] Work Phone: Comment on above: For patients on eltr ombopag therapy, use of Dimension [place] TBIL is not recommended. Chloride [Moles/Vol] 108 mmol/L 98-107 [facility] Work Phone: Cholesterol [Mass/Vol] 202 mg/dL <200 [facility] Work Phone: Comment on above: <200 mg/dL Desirable 200-240 mg/dL Borderline >240 mg/dL High Risk Eosinophils/100 WBC (Bld) 1.8 % 0-5 [facility] Work Phone: [phone] Glucose [Mass/Vol] 82 mg/dL 74-106 [facility] Work Phone: [phone] Neutrophils (Bld) [#/Vol] 3.1 10*3/uL 2.0-7.7 [facility] Work Phone: [phone] Neutrophils/100 WBC (Bld) 60.1 % 47-70 [facility] Work Phone: [phone] Potassium [Moles/Vol] 3.9 mmol/L 3.5-5.1 [facility] Work Phone: [phone] Protein [Mass/Vol] 6.8 g/dL 6.4-8.2 [facility] Work Phone: Sodium [Moles/Vol] 142 mmol/L 136-145 [facility] Work Phone: Testosterone [Mass/Vol] 679.78 ng/dL [facility] Work Phone: Comment on above: CENTRAL 90% REFERENC E RANGES MALE AGE <50 197.44 - 669.58 ng/dL MALE AGE > or = 50 187.72 - 684.19 ng/dL FEMALE AGE <50 8.38 - 35.01 ng/dL FEMALE AGE > or = 50 <7.00 - 35.92 ng/dL Effective as of 11/21/20 Triglyceride [Mass/Vol] 118 mg/dL <199 [facility] Work Phone: [phone] Comment on above: The drugs N-Acetylcy steine and Metamizole may falsely depress this assay.Serum Triglycerides Reference Interval Normal <150 mg/dL Borderline high 150 - 199 mg/dL High 200 - 499 mg/dL Very High > or = 500 mg/dL WBC (Bld) [#/Vol] 5.1 10*3/uL 4.4-11.0 [facility] Work Phone: Blood erythrocytes count (nu mber/volume)on 02-09-2022 RBC (Bld) [#/Vol] 5.12 10*6/uL 4.6-6.2 [facility] Work Phone: Blood hemoglobin measurement (mass/volume)on 02-09-2022 Hemoglobin (Bld) [Mass/Vol] 15.5 g/dL 13.0-16.5 [facility] Work Phone: Blood lymphocytes/100 leukoc yteson 02-09-2022 Lymphocytes/100 WBC (Bld) 26.9 % 19-41 [facility] Work Phone: Blood monocytes/100 leukocyt eson 02-09-2022 Monocytes/100 WBC (Bld) 10.4 % 0-10 [facility] Work Phone: Blood platelet mean volumeon 02-09-2022 Platelet mean volume (Bld) [Entitic vol] 10.7 fL 6.2-12.0 [facility] Work Phone: Determination of erythrocyte mean corpuscular volume (MCV)on 02-09-2022 MCV (RBC) [Entitic vol] 92.2 fL 80-94 [facility] Work Phone: Hematocrit Auto (Bld) [Volum e fraction]on 02-09-2022 Hematocrit (Bld) [Volume fraction] 47.2 % 40-54 [facility] Work Phone: Laboratory - Chemistry and C hemistry - challengeon 02-09-2022 ALP [Catalytic activity/Vol] 47 U/L 45-117 [facility] Work Phone: ALT [Catalytic activity/Vol] 21 U/L 16-61 [facility] Work Phone: CO2 [Moles/Vol] 28.0 mmol/L 21.0-32.0 [facility] Work Phone: Globulin (S) [Mass/Vol] 3.3 g/dL 2.2-4.2 [facility] Work Phone: Urea nitrogen/Creatinine [Mass ratio] 20.2 mg/mg 10-20 [facility] Work Phone: Laboratory - Hematology and Cell countson 02-09-2022 Erythrocyte distribution width (RBC) [Entitic vol] 43.6 fL 35.1-43.9 [facility] Work Phone: Erythrocyte distribution width (RBC) [Ratio] 12.9 % 11.6-14.6 [facility] Work Phone: Immature granulocytes/100 WBC (Bld) 0.400 % 0.0-0.9 [facility] Work Phone: Comment on above: IG% - Immature Granu locytes (promyelocytes, myelocytes and metamyelocytes) > 1% indicates that a LEFT SHIFT is Present. MCH (RBC) [Entitic mass] 30.3 pg 27.0-32.0 [facility] Work Phone: Nucleated RBC/100 WBC (Bld) [Ratio] 0 % 0-5 [facility] Work Phone: MCHC Auto (RBC) [Mass/Vol]on 02-09-2022 MCHC (RBC) [Mass/Vol] 32.8 g/dL 32-36 [facility] Work Phone: No Panel Informationon 02-09 Estimated GFR (MDRD) Amer 91 mL/min >60 [facility] Work Phone: Comment on above: GFR Calc Estimated GFR (MDRD) Non-Af Amer 75 mL/min >60 [facility] Work Phone: Comment on above: Non- GFR Calc Thyroid Stimulating Hormone (TSH) 1.25 uIU/mL 0.358-3.74 [facility] Work Phone: Vitamin B12 Level > 2000 pg/mL [phone] [facility] Work Phone: Vitamin D 25-Hydroxy 69.4 ng/mL [facility] Work Phone: Comment on above: Vitamin D 25(OH) Sta tus Range Deficiency <20 ng/mL (50nmol/L) Insufficiency 20 - 30 ng/mL (50 - 75 nmol/L) Sufficiency 30 - 100 ng/mL (75 - 250 nmol/L) Toxicity >100 ng/mL (>250 nmol/L) Platelets bldon 02-09-2022 Platelets (Bld) [#/Vol] 182 10*3/uL 150-450 [facility] Work Phone: Serum or plasma albumin chel urement (mass/volume)on 02-09-2022 Albumin [Mass/Vol] 3.5 g/dL 3.2-5.0 [facility] Work Phone: Serum or plasma albumin/glob ulin mass ratioon 02-09-2022 Albumin/Globulin [Mass ratio] 1.1 {ratio} 0.9-2.4 [facility] Work Phone: Serum or plasma calcium chel urement (mass/volume)on 02-09-2022 Calcium [Mass/Vol] 9.2 mg/dL 8.5-10.1 [facility] Work Phone: Serum or plasma cholesterol in HDL measurement (mass/volume)on 02-09-2022 Cholesterol in HDL [Mass/Vol] 57 mg/dL >40 [facility] Work Phone: Comment on above: The drugs N-Acetylcy steine and Metamizole may falsely depress this assay. Reference Range HDL <40 mg/dL Low HDL Cholesterol HDL >or= 60 mg/dL High HDL Cholesterol Serum or plasma cholesterol in VLDL measurement (mass/volume)on 02-09-2022 Cholesterol in VLDL [Mass/Vol] 24 mg/dL 5-40 [facility] [facility] Work Phone: Serum or plasma creatinine m easurement (mass/volume)on 02-09-2022 Creatinine [Mass/Vol] 1.09 mg/dL 0.70-1.30 [facility] Work Phone: Comment on above: The validity of the calculated GFR & GFRAA in patients over 70 years has not been determined. Clinical correlation is essential. Serum or plasma low density lipoprotein (LDL) cholesterol measurement (mass/volume)on 02-09-2022 Cholesterol in LDL [Mass/Vol] 121 mg/dL 0-130 [facility] Work Phone: Serum or plasma urea nitroge n measurement (mass/volume)on 02-09-2022 Urea nitrogen [Mass/Vol] 22 mg/dL 7-18 [facility] Work Phone: Thin prep Papanicolaou smear with manual screeningon 02-09-2022 Thin prep Papanicolaou smear with manual screening 18 U/L 15-37 [facility] Work Phone: Thin prep Papanicolaou smear with manual screening 6 5-15 [facility] Work Phone: No Panel Informationon 10-15 POC SARS CoV-2 Antigen Negative [facility] Work Phone: CNPMarilin 05-14-2019 CNPN Telephone (AGGENS4) OZIEL BURTON ([id number]) 1970 M Date Time Provider Department 05/14/19 [...] Noted Resolved Adult BMI 45.0-49.9 kg/sq m ([facility]) [Z68.42] 04/14/2017 GERD (gastroesophageal reflux disease) [K21.9] 04/14/2017 Morbid obesity ([facility]) [E66.01] 08/14/2017 More... Obesity, Class III, BMI 40-49.9 (morbid obesity*09/02/2017 Encounter Status:Closed by MELODY HERRERA on 05/14/19 [facility] CNOVon 09-24-2018 OV Office Visit (AGGENS4) OZIEL BURTON ([id number]) 1970 M Date Time Provider Department 09/24/18 [...] Total weight loss: 43.5 kg (96 lb) Clare weight: 79 kg (174 lb 4.1 oz) [...] EXERCISE: total minutes per week: Exercising at [employer] with his multiple times per week PAST [...] (Hcc) Gerd (Gastroesophageal Reflux Disease) Morbid Obesity ([facility]) Obesity, Class Iii, Bmi 40-49.9 (Morbid Obesity) ([facility]) REVIEW OF SYSTEMS: CONSTITUTIONAL: Patient [...] Noted Resolved Adult BMI 45.0-49.9 kg/sq m ([facility]) [Z68.42] INVALID FOR* GERD (gastroesophageal reflux disease) [K21.9] INVALID FOR* Morbid obesity ([facility]) [E66.01] INVALID FOR* More... Obesity, Class III, [...] by CYRIL COMBS MD on 09/25/18 [facility] PROGRESSon 09-24-2018 PROGRESS HNO ID: [id number] Author: Cyril Combs Service: ? Author Type: [...] Total weight loss: 43.5 kg (96 lb) Clare weight: 79 kg (174 lb 4.1 oz) [...] EXERCISE: total minutes per week: Exercising at [employer] with his multiple times per week PAST [...] technology and may contain grammatical errors Normal [facility] PROGRESS HNO ID: [id number] Author: Aline Vila) Julia Service: ? Author [...] technology and may contain grammatical errors. Normal [facility] CNOVon 06-23-2018 CNOV Office Visit (AGGENS4) OZIEL BURTON ([id number]) 1970 M Date Time Provider Department 06/23/18 3:30 PM MAKI RUSH (KICKBOXING INSTRUCTOR) AGGENS4 During your visit today, we recorded [...] loss: 43.6 kg (96 lb 3.2 oz) Clare weight: 79 kg (174 lb 4.1 oz) [...] activity throughout the day (working in his [employer], staying active). Discussed increasing formal, planned cardiovascular exercise to aid with wt maintenance. Goals: Goals - consider attending support group - continue to document in a food journail daily and meet protein/fluid goals - formal exercise daily for 30 minutes (cardiovascular)--inc rease exercise Aline Dumont, LAILA, LD This note was generated using voice recognition technology and may contain grammatical errors.dahiana Rush APRN.[facility] 06/23/2018 3:54 PM Signed Congratulations on all [...] Obesity, Class III, BMI 40-49.9 (morbid obesity) ([facility]) [E66.01] Type 2 diabetes mellitus without complication, without long-term current use of insulin ([facility]) [E11.9] Gastroesophageal reflux disease, esophagitis presence not specified [K21.9] Obstructive sleep apnea on CPAP [G47.33, Z99.89] Order(s):BASIC METABOLIC PNL [SQBMP] Order #: [id number] FUTURE CBC [SQCBC] Order #: [id number] FUTURE FERRITIN BLD [SQFERR] Order #: [id number] FUTURE FOLATE SERUM [SQSERFOL] Order #: [id number] FUTURE VITAMIN B1/THIAMINE, WHOLE BLD [DMD1WFH] Order #: [id number] FUTURE VITAMIN B12 BLOOD [SQB12] Order #: [id number] FUTURE IRON + TIBC [SQIRON] Order #: [id number] FUTURE Prescriptions as of 06/23/2018 Sig: VITAMIN [...] Noted Resolved Adult BMI 45.0-49.9 kg/sq m ([facility]) [Z68.42] INVALID FOR* GERD (gastroesophageal reflux disease) [K21.9] INVALID FOR* Morbid obesity ([facility]) [E66.01] INVALID FOR* More... Obesity, Class III, BMI 40-49.9 (morbid obesity*INVALID FOR* Other instructions from your clinician: Congratulations on all your healthy achievements Disposition: Return in about 3 months (around 09/20/2018) for Dr. Combs, Dietitian. Follow-up and Disposition History Recorded Questionnaire: AG GEN SURG BARIATRIC POST-OP VISITS WEIGHT (pounds) -> 208.8 Encounter Status:Closed by MAKI HENSLEY on 06/26/18 [facility] PROGRESSon 06-23-2018 PROGRESS HNO ID: [id number] Author: Aline Dumont Service: (none) Author Type: [...] technology and may contain grammatical errors.s. [facility] PROGRESS HNO ID: [id number] Author: Maki Rush Service: (none) Author Type: [...] loss: 43.6 kg (96 lb 3.2 oz) Clare weight: 79 kg (174 lb 4.1 oz) [...] and check with her insurance. Maki Rush, TONIA.KICKBOXING INSTRUCTOR Normal [facility] Basic Panelon 09-04-2017 Creatinine mass conc 0.96 mg/dL Normal 0.67-1.17 [facility] Comment on above: Performed By: #### H CTI ####[facility] [place], [place] [address] Anion gap 3 molar conc 10 mmol/L Normal 8-16 [facility] Comment on above: Performed By: #### H CTI ####[facility] [place], [place] [address] CO2 molar conc 26 mmol/L Normal 21-32 [facility] Comment on above: Performed By: #### H CTI ####[facility] [place], [place] [address] Glucose mass conc 100 mg/dL High 70-99 [facility] Comment on above: Performed By: #### H CTI ####[address] [address] Urea nitrogen mass conc 12 mg/dL Normal 7-18 [facility] Comment on above: Performed By: #### H CTI ####[address] [address] Calcium mass conc 8.8 mg/dL Normal 8.5-10.1 [facility] Comment on above: Performed By: #### H CTI ####[address] [address] Chloride molar conc 110 mmol/L High 98-107 [facility] Comment on above: Performed By: #### H CTI ####[address] [address] Potassium molar conc 4.0 mmol/L Normal 3.5-5.1 [facility] Comment on above: Performed By: #### H CTI ####[address] [address] Sodium molar conc 142 mmol/L Normal 136-145 [facility] Comment on above: Performed By: #### H CTI ####[address] [address] Glucose Meteron 09-04-2017 Glucose mass conc 89 mg/dL Normal 70-99 [facility] Comment on above: Result Comment: GEO JORDAN Performed By: #### H CTI ####[place] [address] Glucose mass conc 91 mg/dL Normal 70-99 [facility] Comment on above: Result Comment: GEO JORDAN Performed By: #### H CTI ####[place] [address] Hemogram/Diffon 09-04-2017 Abs Immature Grans 0.04 thou/cmm Normal 0.00-0.05 [facility] Comment on above: Performed By: #### H GBI ####[place] [address] Abs. Baso 0.02 thou/cmm Normal 0.01-0.08 [facility] Comment on above: Performed By: #### H GBI ####[place] [address] Abs. Harris 0.63 thou/cmm Normal 0.30-0.82 [facility] Comment on above: Performed By: #### H GBI ####[place] [address] Abs. Neut 5.04 thou/cmm Normal 1.78-5.38 [facility] Comment on above: Performed By: #### H GBI ####[place] [address] Basophils/100 WBC Auto (Bld) 0.3 % Normal [facility] Comment on above: Performed By: #### H GBI ####[place] [address] Eosinophils Auto #/vol (Bld) 0.06 thou/cmm Normal 0.04-0.54 [facility] Comment on above: Performed By: #### H GBI ####[place] [address] Eosinophils/100 WBC Auto (Bld) 0.8 % Normal [facility] Comment on above: Performed By: #### H GBI ####[place] [address] Erythrocyte distribution width Auto Ratio (RBC) 15.0 % High 11.6-14.4 [facility] Comment on above: Performed By: #### H GBI ####[facility] [place], [place] [address] Hematocrit Auto Volume Fraction (Bld) 44.6 % Normal 40.1-51.0 [facility] Comment on above: Performed By: #### H GBI ####[address] [address] Hemoglobin mass conc (Bld) 14.5 g/dL Normal 13.7-17.5 [facility] Comment on above: Performed By: #### H GBI ####[place] [address] Immature Grans 0.50 % Normal [facility] Comment on above: Performed By: #### H GBI ####[place] [address] Lymphocytes Auto #/vol (Bld) 1.83 thou/cmm Normal 0.84-2.85 [facility] Comment on above: Performed By: #### H GBI ####[place] [address] Lymphocytes/100 WBC Auto (Bld) 24.0 % Normal [facility] Comment on above: Performed By: #### H GBI ####[place] [address] MCH Auto Entitic mass (RBC) 29.3 pg Normal 25.7-32.2 [facility] Comment on above: Performed By: #### H GBI ####[place] [address] MCHC Auto mass conc (RBC) 32.5 % Normal 32.3-36.5 [facility] Comment on above: Performed By: #### H GBI ####[place] [address] MCV Auto Entitic volume (RBC) 90.1 fL Normal 83.2-95.6 [facility] Comment on above: Performed By: #### H GBI ####[address] [address] Monocytes/100 WBC Auto (Bld) 8.3 % Normal [facility] Comment on above: Performed By: #### H GBI ####[address] [address] Platelet mean volume Auto Entitic volume (Bld) 11.3 fL Normal 8.7-12.0 [facility] Comment on above: Performed By: #### H GBI ####[address] [address] Platelets Auto #/vol (Bld) 195 thou/cmm Normal 141-365 [facility] Comment on above: Performed By: #### H GBI ####[place] [address] RBC Auto #/vol (Bld) 4.95 mil/cmm Normal 4.63-6.08 [facility] Comment on above: Performed By: #### H GBI ####[place] [address] RDW SD 48.9 fl High 36.1-45.8 [facility] Comment on above: Performed By: #### H GBI ####[place] [address] Seg Neutrophil 66.1 % Normal [facility] Comment on above: Performed By: #### H GBI ####[place] [address] WBC Auto #/vol (Bld) 7.63 thou/cmm Normal 4.23-9.07 [facility] Comment on above: Performed By: #### H GBI ####[place] [id number] MDRD GFRon 09-04-2017 GFR/1.73 sq M predicted among non-blacks MDRD vol rate/area (S/P/Bld) mL/min/{1.73_m2} Normal >60mL/min/1.7 3m2 [facility] Comment on above: Result Comment: If t he patient is , multiply the result by 1.210. Performed By: #### H CTI ####[facility] [place], [place] [address] Otheron 09-04-2017 CONVERTED CLINICAL HISTORY OPERATIVE PROCEDURE: Laps gstrc rstrictiv px longitudinal gastrectomy (66443) ( CPT) CLINICAL INFORMATION: Morbid obesity (HCC) [E66.01] [facility] CONVERTED ELECTRONIC SIGNATURE MARIBEL CHAVEZ M.D., PATHOLOGIST (Electronic signature on file) Final Signed Out: 09/04/2017 16:28 [facility] CONVERTED FINAL DIAGNOSIS FINAL DIAGNOSIS: STOMACH, SLEEVE GASTRECTOMY - BENIGN GASTRIC TISSUE. [facility] CONVERTED GROSS DESCRIPTION GROSS DESCRIPTION: Sleeve gastrectomy [...] thickness ranging from 0.3 to 0.6 cm. Medical Device sections are submitted in three cassettes. BMP:salty [facility] CONVERTED ORDERING PROVIDER Ordering Provider: SUZE COMBS [facility] Basic Panelon 09-03-2017 Urea nitrogen mass conc 19 mg/dL High 7-18 [facility] Comment on above: Performed By: #### H GBI ####[place] [address] Creatinine mass conc 0.98 mg/dL Normal 0.67-1.17 [facility] Comment on above: Performed By: #### H GBI ####[place] [address] Anion gap 3 molar conc 13 mmol/L Normal 8-16 [facility] Comment on above: Performed By: #### H GBI ####[facility] [place] [address] CO2 molar conc 26 mmol/L Normal 21-32 [facility] Comment on above: Performed By: #### H GBI ####[address] [address] Glucose mass conc 93 mg/dL Normal 70-99 [facility] Comment on above: Performed By: #### H GBI ####[facility] [place], [place] [address] Calcium mass conc 8.7 mg/dL Normal 8.5-10.1 [facility] Comment on above: Performed By: #### H GBI ####[address] [address] Chloride molar conc 105 mmol/L Normal 98-107 [facility] Comment on above: Performed By: #### H GBI ####[address] [address] Potassium molar conc 3.6 mmol/L Normal 3.5-5.1 [facility] Comment on above: Performed By: #### H GBI ####[address] [address] Sodium molar conc 140 mmol/L Normal 136-145 [facility] Comment on above: Performed By: #### H GBI ####[address] [address] Glucose Meteron 09-03-2017 Glucose mass conc 90 mg/dL Normal 70-99 [facility] Comment on above: Result Comment: RN N OTIFIED Performed By: #### H GBI ####[address] [address] Glucose mass conc 92 mg/dL Normal 70-99 [facility] Comment on above: Result Comment: RN N OTIFIED Performed By: #### H GBI ####[address] [address] Glucose mass conc 87 mg/dL Normal 70-99 [facility] Comment on above: Result Comment: RN N OTIFIED Performed By: #### H GBI ####[address] [address] Glucose mass conc 132 mg/dL High 70-99 [facility] Comment on above: Result Comment: RN N OTIFIED Performed By: #### H GBI ####[address] [address] Hemogram/Diffon 09-03-2017 Abs Immature Grans 0.05 thou/cmm Normal 0.00-0.05 [facility] Comment on above: Performed By: #### H GBI ####[facility] [place] [address] Abs. Baso 0.02 thou/cmm Normal 0.01-0.08 [facility] Comment on above: Performed By: #### H GBI ####[place] [address] Abs. Harris 1.14 thou/cmm High 0.30-0.82 [facility] Comment on above: Performed By: #### H GBI ####[place] [address] Abs. Neut 9.02 thou/cmm High 1.78-5.38 [facility] Comment on above: Performed By: #### H GBI ####[place] [address] Basophils/100 WBC Auto (Bld) 0.2 % Normal [facility] Comment on above: Performed By: #### H GBI ####[place] [address] Eosinophils Auto #/vol (Bld) 0.01 thou/cmm Low 0.04-0.54 [facility] Comment on above: Performed By: #### H GBI ####[place] [address] Eosinophils/100 WBC Auto (Bld) 0.1 % Normal [facility] Comment on above: Performed By: #### H GBI ####[place] [address] Erythrocyte distribution width Auto Ratio (RBC) 14.9 % High 11.6-14.4 [facility] Comment on above: Performed By: #### H GBI ####[place] [address] Hematocrit Auto Volume Fraction (Bld) 46.0 % Normal 40.1-51.0 [facility] Comment on above: Performed By: #### H GBI ####[facility] [place] [address] Hemoglobin mass conc (Bld) 15.4 g/dL Normal 13.7-17.5 [facility] Comment on above: Performed By: #### H GBI ####[place] [address] Immature Grans 0.40 % Normal [facility] Comment on above: Performed By: #### H GBI ####[place] [address] Lymphocytes Auto #/vol (Bld) 1.24 thou/cmm Normal 0.84-2.85 [facility] Comment on above: Performed By: #### H GBI ####[place] [address] Lymphocytes/100 WBC Auto (Bld) 10.8 % Normal [facility] Comment on above: Performed By: #### H GBI ####[place] [address] MCH Auto Entitic mass (RBC) 29.2 pg Normal 25.7-32.2 [facility] Comment on above: Performed By: #### H GBI ####[place] [address] MCHC Auto mass conc (RBC) 33.5 % Normal 32.3-36.5 [facility] Comment on above: Performed By: #### H GBI ####[place] [address] MCV Auto Entitic volume (RBC) 87.3 fL Normal 83.2-95.6 [facility] Comment on above: Performed By: #### H GBI ####[place] [address] Monocytes/100 WBC Auto (Bld) 9.9 % Normal [facility] Comment on above: Performed By: #### H GBI ####[place] [address] Platelet mean volume Auto Entitic volume (Bld) 11.2 fL Normal 8.7-12.0 [facility] Comment on above: Performed By: #### H GBI ####[facility] [place], [place] [address] Platelets Auto #/vol (Bld) 210 thou/cmm Normal 141-365 [facility] Comment on above: Performed By: #### H GBI ####[facility] [place] [address] RBC Auto #/vol (Bld) 5.27 mil/cmm Normal 4.63-6.08 [facility] Comment on above: Performed By: #### H GBI ####[place] [address] RDW SD 47.5 fl High 36.1-45.8 [facility] Comment on above: Performed By: #### H GBI ####[place] [address] Seg Neutrophil 78.6 % Normal [facility] Comment on above: Performed By: #### H GBI ####[place] [address] WBC Auto #/vol (Bld) 11.48 thou/cmm High 4.23-9.07 [facility] Comment on above: Performed By: #### H GBI ####[place] [address] MDRD GFRon 09-03-2017 GFR/1.73 sq M predicted among non-blacks MDRD vol rate/area (S/P/Bld) mL/min/{1.73_m2} Normal >60mL/min/1.7 3m2 [facility] Comment on above: Result Comment: If t he patient is , multiply the result by 1.210. Performed By: #### H GBI ####[place] [address] ABO/Rh Confirmationon 2017 ABO group Nom (Bld) A Normal [facility] Comment on above: Performed By: #### A NAKUL ####[place] [address] RH Type Positive Normal [facility] Comment on above: Performed By: #### A NAKUL ####[facility] [place] [address] Basic Panelon 09-02-2017 Creatinine mass conc 0.84 mg/dL Normal 0.67-1.17 [facility] Comment on above: Performed By: #### P 8 ####[facility] [place] [address] Anion gap 3 molar conc 14 mmol/L Normal 8-16 [facility] Comment on above: Performed By: #### P 8 ####[facility] [place] [address] CO2 molar conc 19 mmol/L Low 21-32 [facility] Comment on above: Performed By: #### P 8 ####[facility] [place] [address] Glucose mass conc 114 mg/dL High 70-99 [facility] Comment on above: Performed By: #### P 8 ####[facility] [place] [address] Urea nitrogen mass conc 21 mg/dL High 7-18 [facility] Comment on above: Performed By: #### P 8 ####[facility] [place], [place] [address] Calcium mass conc 8.8 mg/dL Normal 8.5-10.1 [facility] Comment on above: Performed By: #### P 8 ####[facility] [place] [address] Chloride molar conc 104 mmol/L Normal 98-107 [facility] Comment on above: Performed By: #### P 8 ####[facility] [place], [place] [address] Potassium molar conc 5.4 mmol/L High 3.5-5.1 [facility] Comment on above: Performed By: #### P 8 ####[facility] [place] [address] Sodium molar conc 132 mmol/L Low 136-145 [facility] Comment on above: Performed By: #### P 8 ####[address] [address] Glucose Meteron 09-02-2017 Glucose mass conc 114 mg/dL High 70-99 [facility] Comment on above: Result Comment: RN N OTIFIED Performed By: #### H GBI ####[address] [address] Glucose mass conc 132 mg/dL High 70-99 [facility] Comment on above: Result Comment: GEO N OTIFIED Performed By: #### G LMET ####[address] [address] Glucose mass conc 141 mg/dL High 70-99 [facility] Comment on above: Performed By: #### G LMET ####[address] [address] Glucose mass conc 88 mg/dL Normal 70-99 [facility] Comment on above: Performed By: #### G LMET ####[address] [address] MDRD GFRon 09-02-2017 GFR/1.73 sq M predicted among non-blacks MDRD vol rate/area (S/P/Bld) mL/min/{1.73_m2} Normal >60mL/min/1.7 3m2 [facility] Comment on above: Result Comment: If t he patient is , multiply the result by 1.210. Performed By: #### H GBI ####[place] [address] Surgical Tissue Examon 09-02 Surgical Tissue Exam Test performed at [place] [address]NAME: OZIEL BURTON [id number] REQUESTING: SUZE COMBS MDFINAL DIAGNOSIS:STOMACH, SLEEVE GASTRECTOMY - BENIGN GASTRIC TISSUE.OPERATIVE PROCEDURE: Laps gstrc rstrictiv px longitudinal gastrectomy (269[address]) ( CPT)CLINICAL INFORMATION: Morbid obesity (HCC) [E66.01]GROSS [...] wall thickness ranging from 0.3 to0.6 cm. Medical Device sections are submitted in three cassettes.BMP:lionel CHAVEZ M.D., PATHOLOGIST(Joe gray signature on file)Signed out: 09/04/2017 16:28PRINTED: 09/04/2017 Page 1 of 1 Normal [facility] Comment on above: Performed By: #### H CTI ####[place] [address] Albumin Bloodon 08-26-2017 Albumin mass conc 4.0 g/dL Normal 3.4-5.0 [facility] Comment on above: Performed By: #### A LB ####[place] [address] Hcton 08-26-2017 Hematocrit Auto Volume Fraction (Bld) 46.7 % Normal 40.1-51.0 [facility] Comment on above: Performed By: #### H CTI ####[place] [address] Hgbon 08-26-2017 Hemoglobin mass conc (Bld) 15.5 g/dL Normal 13.7-17.5 [facility] Comment on above: Performed By: #### H GBI ####[place] [address] Type and Screenon 08-26-2017 ABO group Nom (Bld) A Normal [facility] Comment on above: Performed By: #### T &S ####[place] [address] Comment PAT specimen Normal [facility] Comment on above: Performed By: #### T &S ####[place] [address] RH Type Positive Normal [facility] Comment on above: Performed By: #### T &S ####[address] [address] Otheron 04-16-2017 CONVERTED CLINICAL HISTORY OPERATIVE PROCEDURE: EGD CLINICAL INFORMATION: Morbid obesity, Gastritis, Gastric polyp [facility] CONVERTED ELECTRONIC SIGNATURE GHULAM SHERMAN M.D.,PATHOLOGIST (Electronic signature on file) Final Signed Out: 04/16/2017 16:47 [facility] CONVERTED FINAL DIAGNOSIS FINAL DIAGNOSIS: A) STOMACH, POLYP - FUNDIC GLAND POLYP. B) STOMACH, ANTRUM, BIOPSY - MILD REACTIVE GASTROPATHY AND MILD CHRONIC GASTRITIS. NEGATIVE FOR HELICOBACTER PYLORI (SEE NOTE). NOTE: Immunostain for H. pylori is negative. [facility] CONVERTED GROSS DESCRIPTION GROSS DESCRIPTION: A) Biopsy [...] cassette B1. Levels x 3. H. pylori. [facility] CONVERTED ORDERING PROVIDER Ordering Provider: SUZE COMBS [facility] Surgical Tissue Examon 04-14 Surgical Tissue Exam Test performed at [address] [address]QTMQ: OZIEL BURTON [id number] REQUESTING: SUZE COMBS MDFINAL DIAGNOSIS:A) STOMACH, POLYP [...] 16:47PRINTED: 04/16/2017 Page 1 of 1 Normal [facility] Comment on above: Performed By: #### S URG ####[place] [address] Office Visit: [facility]: CHANCE Curran um 01-09-2017 Documentation of current medications (procedure) Done Invalid Interpretation Code [facility] Work Phone: Fall risk assessment No Invalid Interpretation Code [facility] Work Phone: Protein mass conc Done [facility] Work Phone: Tobacco smoking status NHIS Never Invalid Interpretation Code [facility] Work Phone: Tobacco smoking status NHIS Never smoker [facility] Work Phone: Tobacco use [facility] Never smoker Invalid Interpretation Code [facility] Work Phone: Office Visit: [facility] 11-18-2016 Documentation of current medications (procedure) Done Invalid Interpretation Code [facility] Work Phone: Fall risk assessment No Invalid Interpretation Code [facility] Work Phone: Tobacco smoking status NHIS Never Invalid Interpretation Code [facility] Work Phone: Tobacco use CPHS Never smoker Invalid Interpretation Code [facility] Work Phone: Office Visiton 08-16-2016 Documentation of current medications (procedure) Done Invalid Interpretation Code [facility] Work Phone: Tobacco smoking status NHIS Never [facility] Work Phone: Tobacco smoking status NHIS Never smoker [facility] Work Phone: Tobacco use CPHS Never smoker Invalid Interpretation Code [facility] Work Phone: [phone] Chart Maintenanceon 06-29-19 17 HbA1c (Bld) [Mass fraction] 5.8 % Invalid Interpretation Code [place] [employer] [facility] Work Phone: Lab Report: Bedside Glucoseo n 05-29-2016 Glucose 131 mg/dL High 70-110 [facility] Work Phone: [phone] Glucose [Mass/Vol] 131 mg/dL High 70-110 [facility] Work Phone: Microbiology: Culture, Body Fluidon 03-07-2016 body fluid culture . Invalid Interpretation Code [facility] Work Phone: [phone] CUBF . [place] [employer] [facility] [employer] Work Phone: Lab Report: GLUCOSE, SYNOVIA L FLUIDon 03-04-2016 GE use only - for LinkLogic import when terms are not otherwise specified . Invalid Interpretation Code [facility] Work Phone: [phone] GLU, SYN FLD . [place] [employer] [facility] [employer] Work Phone: Lab Report: Crystals, Body F luidon 02-23-2016 PATH REV Reviewed [place] [employer] [facility] Work Phone: Pathology comment Reviewed Invalid Interpretation Code [facility] Work Phone: [phone] Lab Report: Synovial Fluid R BC, WBC AND Diffon 02-22-2016 appearance, body fluid Sl Cl Invalid Interpretation Code CLEAR [facility] Work Phone: [phone] Cell Count, Synovial Fluid 0.6510 10 3 uL High 0.000-0.000 [facility] Work Phone: [phone] color, synovial fluid Yellow Invalid Interpretation Code Pale Yellow [facility] Work Phone: [phone] Erythrocytes (RBC) 0.003 10 6/UL High 0 [facility] Work Phone: [phone] Lymphocytes/100 leukocytes 18 % Invalid Interpretation Code [facility] Work Phone: [phone] Lymphocytes/100 WBC (Bld) 18 % [place] [employer] [facility] Work Phone: Monocytes 66 % Invalid Interpretation Code [facility] Work Phone: [phone] Monocytes (Bld) [#/Vol] 66 % [place] [employer] [facility] Work Phone: NEUTROPHIL 14 % 0-25 [place] [employer] [facility] Work Phone: neutrophils as percent of body fluid leukocytes 14 % Invalid Interpretation Code 0-25 [facility] Work Phone: [phone] OTHER CELL /SYN 1 % [employer] [facility] Work Phone: other Cells 1 % Invalid Interpretation Code [facility] Work Phone: [phone] source of sample R,KNEE Invalid Interpretation Code [facility] Work Phone: [phone] 0.6510 10 3 uL High 0.000-0.000 [facility] [employer] [facility] Work Phone: SYNOVIAL COLOR Yellow Pale Yellow [employer] [employer] [facility] Work Phone: SYNOVIAL RBC 0.003 10 6/UL High 0 [place] [employer] [facility] Work Phone: SYNOVIAL SOURCE R,KNEE [employer] [facility] Work Phone: SYNOVIAL WBC 0.6110 10 3UL High 0.000-0.002 [employer] [facility] Work Phone: WBC, Fluid 0.6110 10 3UL High 0.000-0.002 [facility] Work Phone: [phone] Replaced Document: Crystals, Body Fluidon 02-22-2016 crystals, body fluid SYNOVIAL Invalid Interpretation Code [facility] [employer] [facility] Work Phone: [phone] CRYSTALS/BF SYNOVIAL [place] [employer] [facility] Work Phone: EKG Report: Midmark ECG Obse augustina 10-18-2015 EKG QRS axis 2 deg [place] [employer] [facility] [employer] [employer] [facility] Work Phone: electrocardiogram interpretation Sinus Bradycardia WITHIN NORMAL LIMITS Invalid Interpretation Code [facility] Work Phone: [phone] Interpretation Sinus Bradycardia WITHIN NORMAL LIMITS [place] [employer] [facility] Work Phone: P Hadley 20 deg [place] [employer] [facility] Work Phone: P wave axis, electrocardiogram 20 deg Invalid Interpretation Code [facility] Work Phone: [phone] HI Interval 142 ms [place] [employer] [facility] Work Phone: HI interval, electrocardiogram 142 ms Invalid Interpretation Code [facility] Work Phone: Pulse (Heart Rate) 58 /min Invalid Interpretation Code [facility] Work Phone: QRS axis, electrocardiogram 2 deg Invalid Interpretation Code [facility] Work Phone: [phone] QRS Duration 91 ms [place] [employer] [facility] Work Phone: QRS duration, electrocardiogram 91 ms Invalid Interpretation Code [facility] Work Phone: QT Interval new path ms [place] [employer] [facility] Work Phone: QT interval, electrocardiogram new path ms Invalid Interpretation Code [facility] Work Phone: [phone] T Hadley 10 deg [place] [employer] [facility] Work Phone: T wave axis, electrocardiogram 10 deg Invalid Interpretation Code [facility] [employer] [facility] Work Phone: Rx Refill: eRx Request for J ANUVIA 100 MG ORAL TABSon 09-26-2015 e-scripts messenger refill request [id number]`JANUVI A 100 MG ORAL TABS`100``30 Tablet``One tablet by mouth daily```0`03/30/2015` 03/30/2015`[facility] Retail Rx*`[id number]``JANUVIA 100 MG TABLET Quantity: 30 Tablet Instructions: TAKE 1 TABLET BY MOUTH ONCE DAILY Better [facility] Work Phone: [facility]_ [id number] 1 [id number]`JANUVI A 100 MG ORAL TABS`100``30 Tablet``One tablet by mouth daily```0`03/30/2015` 03/30/2015`[facility] Retail Rx*`[id number]``JANUVIA 100 MG TABLET Quantity: 30 Tablet Instructions: TAKE 1 TABLET BY MOUTH ONCE DAILY [facility] Work Phone: Lab Report: AST(SGOT)on Aspartate aminotransferase (AST) 21 U/L Invalid Interpretation Code 15-37 [facility] Work Phone: Lab Report: Alanine Aminotra nsferas (SGPT)on 08-31-2015 Alanine aminotransferase (ALT) 46 U/L Invalid Interpretation Code 12-78 [facility] Work Phone: Lab Report: Hemoglobin A1con 08-31-2015 HbA1c 5.9 % Invalid Interpretation Code 4.2-6.3 [facility] Work Phone: Lab Report: Lipid Profileon 08-31-2015 Cholesterol 100 mg/dL Invalid Interpretation Code 200 [facility] Work Phone: [phone] HDL Cholesterol 37 mg/dL [facility] Work Phone: [phone] LDL Cholesterol 46 mg/dL Invalid Interpretation Code 0-130 [facility] Work Phone: [phone] Triglyceride 85 mg/dL Invalid Interpretation Code [facility] Work Phone: [phone] very low density lipoproteins 17 mg/dL Invalid Interpretation Code 5-40 [facility] Work Phone: Lab Report: Comprehensive Nc tabolic Profilon 04-15-2015 Albumin 3.8 g/dL Invalid Interpretation Code 3.4-5.0 [facility] Work Phone: [phone] Albumin/Globulin Ratio 1.3 {ratio} Invalid Interpretation Code 0.9-2.4 [facility] Work Phone: [phone] Alkaline phosphatase (ALP) 33 U/L Low 50-136 [facility] Work Phone: [phone] ALP (Bld) [Catalytic activity/Vol] 33 U/L Low 50-136 [place] [employer] [facility] Work Phone: Anion gap 5 mmol/L Invalid Interpretation Code 5-15 [facility] Work Phone: [phone] Anion gap [Moles/Vol] 5 mmol/L 5-15 [facility] [employer] [facility] [employer] [employer] [facility] Work Phone: Bilirubin (total) 0.40 mg/dL Invalid Interpretation Code 0.20-1.00 [facility] Work [phone] BUN/Creatinine Ratio 16.4 RATIO Invalid Interpretation Code 10-20 [facility] Work Phone: [phone] Calcium 9.0 mg/dL Invalid Interpretation Code 8.5-10.1 [facility] Work Phone: [phone] Chloride 109 mmol/L High 98-107 [facility] Work Phone: [phone] CO2 29.0 mmol/L Invalid Interpretation Code 21.0-32.0 [facility] Work Phone: [phone] CO2 (BldV) [Partial pressure] 29.0 mmol/L 21.0-32.0 [place] [employer] [facility] Work Phone: Creatinine 1.22 mg/dL Invalid Interpretation Code 0.70-1.30 [facility] Work Phone: [phone] eGFR (non-black) 82 mL/min/{1.73_m2} Invalid Interpretation Code >60 [facility] Work Phone: [phone] eGFR (non-black) 68 mL/min/{1.73_m2} Invalid Interpretation Code >60 [facility] Work Phone: [phone] EST GFR - AA 82 mL/min >60 [place] [employer] [facility] [employer] Work Phone: Globulin 3.0 g/dL Invalid Interpretation Code 2.3-3.5 [facility] Work Phone: [phone] Globulin (S) [Mass/Vol] 3.0 g/dL 2.3-3.5 [place] [employer] [facility] Work Phone: Glucose 119 mg/dL High 70-110 [facility] Work Phone: [phone] Glucose [Mass/Vol] 119 mg/dL High 70-110 [facility] Work Phone: Potassium 4.2 mmol/L Invalid Interpretation Code 3.5-5.1 [facility] Work Phone: [phone] Protein 6.8 g/dL Invalid Interpretation Code 6.4-8.2 [facility] Work Phone: [phone] Sodium 143 mmol/L Invalid Interpretation Code 136-145 [facility] Work Phone: [phone] Urea nitrogen 20 mg/dL High 7-18 [facility] Work Phone: [phone] Lab Report: Microalb:Creat R atio,Random URon 04-15-2015 ACR (microalbumin/creatini ne) ratio 6.7 MG/G CRE Invalid Interpretation Code <30 mg/g CRE [facility] Work Phone: [phone] Albumin/Creatinine DL <= 20 mg/L (U) [Ratio] 6.7 MG/G CRE <30 mg/g CRE [facility] [employer] [facility] [employer] Work Phone: Urine, creatinine 238.00 mg/dL Invalid Interpretation Code NO RANGE EST. [facility] Work Phone: Urine, microalbumin 1.6 mg/dL Invalid Interpretation Code Units converted. See lab report for original value. [facility] Work Phone: [phone] Office Visit: Hematuriaon Albumin Ql (U) trace [employer] Work Phone: Bilirubin Ql (U) Negative [facility] [employer] [facility] Work Phone: blood in urine (hemoglobin) by dipstick 3+ Invalid Interpretation Code [facility] Work Phone: [phone] Glucose Test strip (U) [Mass/Vol] Negative [place] [facility] Work Phone: Ketones (U) [Mass/Vol] Negative [facility] [employer] [facility] Work Phone: Nitrite Ql (U) Negative [employer] [facility] Work Phone: pH (U) 6.0 [pH] [place] [facility] Work Phone: specific gravity, urine 1.015 Invalid Interpretation Code [facility] Work Phone: [phone] Urine, appearance cloudy Invalid Interpretation Code [facility] Work Phone: [phone] Urine, bilirubin presence Negative Invalid Interpretation Code [facility] Work Phone: [phone] Urine, color straw Invalid Interpretation Code [facility] Work Phone: [phone] Urine, glucose presence Negative Invalid Interpretation Code [facility] Work Phone: [phone] Urine, ketones presence Negative Invalid Interpretation Code [facility] Work Phone: [phone] Urine, leukocyte esterase presence Negative Invalid Interpretation Code [facility] Work Phone: [phone] Urine, nitrite presence Negative Invalid Interpretation Code [facility] Work Phone: [phone] Urine, pH 6.0 [pH] Invalid Interpretation Code [facility] Work Phone: [phone] Urine, protein trace Invalid Interpretation Code [facility] Work Phone: [phone] Urine, urobilinogen presence Negative Invalid Interpretation Code [facility] Work Phone: [phone] Bacteria identified Anaer cx Nom (Unsp spec) Anaerobic microbial culture No anaerobic bacteria isolated. [facility] Work Phone: Bacteria identified Cx Nom ( Wound) Wound Culture Staphylococcus epidermidis [facility] Work Phone: Gram stain for investigation of transfusion reaction Microscopic observation Gram stain Nom (Unsp spec) [facility] Work Phone: Vital Signs Date Time Vital Sign Value Performing Clinician Facility 12-23-2024 11:03-0400 Body height 177.[address] Jai Miranda MD Work Phone: [facility] 07-15-2024 09:55-0400 Body height 177.[address] Renzo Beatty DO Work Phone: [facility] 07-15-2024 09:55-0400 Body mass index (BMI) [Ratio] 37.3 kg/m2 Dr. Renzo Beatty DO Work Phone: [facility] 07-15-2024 09:55-0400 Body weight 117.[address] Renzo Beatty DO Work Phone: [facility] 06-22-2024 19:41-0500 Body temperature 97.8 [degF] Dr. Renzo Beatty DO Work Phone: [facility] 06-22-2024 19:41-0500 Diastolic blood pressure 79 mm[Hg] Dr. Renzo Beatty DO Work Phone: [facility] 06-22-2024 19:41-0500 Heart rate 59 /min Dr. Renzo Beatty DO Work Phone: [facility] 06-22-2024 19:41-0500 Respiratory rate 16 /min Dr. Renzo Beatty DO Work Phone: [facility] 06-22-2024 19:41-0500 SaO2% (BldA) [Mass fraction] 100 % Dr. Renzo Beatty DO Work Phone: [facility] 06-22-2024 19:41-0500 Systolic blood pressure 122 mm[Hg] Dr. Renzo Beatty DO Work Phone: [facility] 06-21-2024 17:04-0500 Body mass index (BMI) [Ratio] 37.8 kg/m2 Dr. Renzo Beatty DO Work Phone: [facility] 06-21-2024 17:04-0500 Body weight 119.[address] Renzo Beatty DO Work Phone: [facility] 06-21-2024 16:01-0500 Inhaled oxygen flow rate 4 L/min Dr. Renzo Beatty DO Work Phone: [facility] 04-07-2024 10:00-0500 Body temperature 97.1 [degF] Dr. Renzo Beatty DO Work Phone: [facility] 04-07-2024 10:00-0500 Diastolic blood pressure 75 mm[Hg] Dr. Renzo Beatty DO Work Phone: [facility] 04-07-2024 10:00-0500 Heart rate 62 /min Dr. Renzo Beatty DO Work Phone: [facility] 04-07-2024 10:00-0500 Respiratory rate 16 /min Dr. Renzo Beatty DO Work Phone: [facility] 04-07-2024 10:00-0500 SaO2% (BldA) [Mass fraction] 96 % Dr. Renzo Beatty DO Work Phone: [facility] 04-07-2024 10:00-0500 Systolic blood pressure 126 mm[Hg] Dr. Renzo Beatty DO Work Phone: [facility] 04-07-2024 08:40-0500 Inhaled oxygen flow rate 3 L/min Dr. Renzo Beatty DO Work Phone: [facility] 04-07-2024 06:01-0500 Body mass index (BMI) [Ratio] 38.4 kg/m2 Dr. Renzo Beatty DO Work Phone: [facility] 04-07-2024 06:01-0500 Body weight [address] Renzo Beatty DO Work Phone: [facility] 08-23-2023 14:30-0400 Body temperature 98 [degF] Dr. Renzo Beatty Work Phone: [facility] 08-23-2023 14:30-0400 Diastolic blood pressure 82 mm[Hg] Dr. Renzo Beatty Work Phone: [facility] 08-23-2023 14:30-0400 Heart rate 87 /min Dr. Renzo Beatty Work Phone: [facility] 08-23-2023 14:30-0400 Respiratory rate 18 /min Dr. Renzo Beatty Work Phone: [facility] 08-23-2023 14:30-0400 SaO2% (BldA) [Mass fraction] 99 % Dr. Renzo Beatty Work Phone: [facility] 08-23-2023 14:30-0400 Systolic blood pressure 137 mm[Hg] Dr. Renzo Beatty Work Phone: [facility] 08-23-2023 13:24-0400 Body height 175.[address] Renzo Beatty Work Phone: [facility] 08-23-2023 13:24-0400 Body mass index (BMI) [Ratio] 38.9 kg/m2 Dr. Renzo Beatty Work Phone: [facility] 08-23-2023 13:24-0400 Body weight 119.[address] Renzo Beatty Work Phone: [facility] 05-26-2023 11:49-0500 Body height 177.[address] Renzo Beatty Work Phone: [facility] 05-26-2023 11:49-0500 Body mass index (BMI) [Ratio] 37.9 kg/m2 Dr. Renzo Beatty Work Phone: [facility] 05-26-2023 11:49-0500 Body temperature 98.6 [degF] Dr. Renzo Beatty Work Phone: [facility] 05-26-2023 11:49-0500 Body weight 119.[address] Renzo Beatty Work Phone: [facility] 05-26-2023 11:49-0500 Diastolic blood pressure 90 mm[Hg] Dr. Renzo Beatty Work Phone: [facility] 05-26-2023 11:49-0500 Heart rate 51 /min Dr. Renzo Beatty Work Phone: [facility] 05-26-2023 11:49-0500 Respiratory rate 16 /min Dr. Renzo Beatty Work Phone: [facility] 05-26-2023 11:49-0500 SaO2% (BldA) [Mass fraction] 99 % Dr. Renzo Beatty Work Phone: [facility] 05-26-2023 11:49-0500 Systolic blood pressure 160 mm[Hg] Dr. Renzo Beatty Work Phone: [facility] 04-09-2023 10:11-0500 Body height 177.[address] Renzo Beatty Work Phone: [facility] 04-09-2023 10:11-0500 Body mass index (BMI) [Ratio] 36.8 kg/m2 Dr. Renzo Beatty Work Phone: [facility] 04-09-2023 10:11-0500 Body weight 116.[address] Renzo Beatty Work Phone: [facility] 03-18-2023 10:15-0500 Body height 177.[address] Renzo Beatty Work Phone: [facility] 03-18-2023 10:15-0500 Body mass index (BMI) [Ratio] 36.6 kg/m2 Dr. Renzo Beatty Work Phone: [facility] 03-18-2023 10:15-0500 Body temperature 97.5 [degF] Dr. Renzo Beatty Work Phone: [facility] 03-18-2023 10:15-0500 Body weight 115.[address] Renzo Beatty Work Phone: [facility] 03-18-2023 10:15-0500 Diastolic blood pressure 94 mm[Hg] Dr. Renzo Beatty Work Phone: [facility] 03-18-2023 10:15-0500 Heart rate 72 /min Dr. Renzo Beatty Work Phone: [facility] 03-18-2023 10:15-0500 Respiratory rate 16 /min Dr. Renzo Beatty Work Phone: [facility] 03-18-2023 10:15-0500 SaO2% (BldA) [Mass fraction] 97 % Dr. Renzo Beatty Work Phone: [facility] 03-18-2023 10:15-0500 Systolic blood pressure 145 mm[Hg] Dr. Renzo Beatty Work Phone: [facility] 03-11-2023 15:30-0500 Body temperature 98 [degF] Dr. Renzo Beatty Work Phone: [facility] 03-11-2023 15:30-0500 Diastolic blood pressure 89 mm[Hg] Dr. Renzo Beatty Work Phone: [facility] 03-11-2023 15:30-0500 Heart rate 52 /min Dr. Renzo Beatty Work Phone: [facility] 03-11-2023 15:30-0500 Respiratory rate 16 /min Dr. Renzo Beatty Work Phone: [facility] 03-11-2023 15:30-0500 SaO2% (BldA) [Mass fraction] 98 % Dr. Renzo Beatty Work Phone: [facility] 03-11-2023 15:30-0500 Systolic blood pressure 149 mm[Hg] Dr. Renzo Beatty Work Phone: [facility] 03-11-2023 13:54-0500 Body height 175.[address] Renzo Beatty Work Phone: [facility] 03-11-2023 13:54-0500 Body mass index (BMI) [Ratio] 38.2 kg/m2 Dr. Renzo Beatty Work Phone: [facility] 03-11-2023 13:54-0500 Body weight 117.[address] Renzo Beatty Work Phone: [facility] 01-31-2023 15:00-0400 Body temperature 97.8 [degF] Dr. Renzo Beatty Work Phone: [facility] 01-31-2023 15:00-0400 Diastolic blood pressure 85 mm[Hg] Dr. Renzo Beatty Work Phone: [facility] 01-31-2023 15:00-0400 Heart rate 63 /min Dr. Renzo Beatty Work Phone: [facility] 01-31-2023 15:00-0400 Respiratory rate 18 /min Dr. Renzo Beatty Work Phone: [facility] 01-31-2023 15:00-0400 SaO2% (BldA) [Mass fraction] 100 % Dr. Renzo Beatty Work Phone: [facility] 01-31-2023 15:00-0400 Systolic blood pressure 145 mm[Hg] Dr. Renzo Beatty Work Phone: [facility] 01-30-2023 12:59-0400 Body weight 124.[address] Renzo Beatty Work Phone: [facility] 01-28-2023 18:47-0400 Inhaled oxygen flow rate 2 L/min Dr. Renzo Beatty Work Phone: [facility] 01-28-2023 12:47-0400 Body mass index (BMI) [Ratio] 40.4 kg/m2 Dr. Renzo Beatty Work Phone: [facility] 11-13-2022 10:01-0400 Body height 175.[address] Renzo Beatty Work Phone: [facility] 11-13-2022 10:01-0400 Body mass index (BMI) [Ratio] 38.7 kg/m2 Dr. Renzo Beatty Work Phone: [facility] 11-13-2022 10:01-0400 Body weight 118.[address] Renzo Beatty Work Phone: [facility] 09-17-2022 15:20-0400 Body temperature 97.2 [degF] Dr. Renzo Beatty Work Phone: [facility] 09-17-2022 15:20-0400 Diastolic blood pressure 72 mm[Hg] Dr. Renzo Beatty Work Phone: [facility] 09-17-2022 15:20-0400 Heart rate 52 /min Dr. Renzo Beatty Work Phone: [facility] 09-17-2022 15:20-0400 Respiratory rate 18 /min Dr. Renzo Beatty Work Phone: [facility] 09-17-2022 15:20-0400 SaO2% (BldA) [Mass fraction] 100 % Dr. Renzo Beatty Work Phone: [facility] 09-17-2022 15:20-0400 Systolic blood pressure 131 mm[Hg] Dr. Renzo Beatty Work Phone: [facility] 09-17-2022 14:45-0400 Inhaled oxygen flow rate 2 L/min Dr. Renzo Beatty Work Phone: [facility] 09-17-2022 12:34-0400 Body height 175.[address] Renzo Beatty Work Phone: [facility] 09-17-2022 12:34-0400 Body mass index (BMI) [Ratio] 34.4 kg/m2 Dr. Renzo Beatty Work Phone: [facility] 09-17-2022 12:34-0400 Body weight [address] Renzo Beatty Work Phone: [facility] 09-12-2022 12:36-0400 Body mass index (BMI) [Ratio] 37.6 kg/m2 Dr. Renzo Beatty Work Phone: [facility] 09-12-2022 12:36-0400 Body weight 115.[address] Renzo Beatty Work Phone: [facility] 09-12-2022 12:36-0400 Diastolic blood pressure 88 mm[Hg] Dr. Renzo Beatty Work Phone: [facility] 09-12-2022 12:36-0400 Systolic blood pressure 134 mm[Hg] Dr. Renzo Beatty Work Phone: [facility] 08-08-2022 15:10-0400 Body temperature 98.1 [degF] Dr. Renzo Beatty Work Phone: [facility] 08-08-2022 15:10-0400 Diastolic blood pressure 76 mm[Hg] Dr. Renzo Beatty Work Phone: [facility] 08-08-2022 15:10-0400 Heart rate 65 /min Dr. Renzo Beatty Work Phone: [facility] 08-08-2022 15:10-0400 Respiratory rate 16 /min Dr. Renzo Beatty Work Phone: [facility] 08-08-2022 15:10-0400 SaO2% (BldA) [Mass fraction] 99 % Dr. Renzo Beatty Work Phone: [facility] 08-08-2022 15:10-0400 Systolic blood pressure 133 mm[Hg] Dr. Renzo Beatty Work Phone: [facility] 08-05-2022 18:30-0400 Body height 175.[address] Renzo Beatty Work Phone: [facility] 08-05-2022 18:30-0400 Body mass index (BMI) [Ratio] 37.8 kg/m2 Dr. Renzo Beatty Work Phone: [facility] 08-05-2022 18:30-0400 Body weight [address] Renzo Beatty Work Phone: [facility] 08-05-2022 18:30-0400 Inhaled oxygen flow rate 2 L/min Dr. Renzo Beatty Work Phone: [facility] 06-03-2022 14:28-0500 Body height 175.[address] Renzo Beatty Work Phone: [facility] 06-03-2022 14:28-0500 Body mass index (BMI) [Ratio] 38.9 kg/m2 Dr. Renzo Beatty Work Phone: [facility] 06-03-2022 14:28-0500 Body weight 119.[address] Renzo Beatty Work Phone: [facility] 04-11-2022 11:58-0500 Body temperature 99.3 [degF] Dr. Renzo Beatty Work Phone: [facility] 04-11-2022 11:58-0500 Diastolic blood pressure 82 mm[Hg] Dr. Renzo Beatty Work Phone: [facility] 04-11-2022 11:58-0500 Heart rate 61 /min Dr. Renzo Beatty Work Phone: [facility] 04-11-2022 11:58-0500 Respiratory rate 20 /min Dr. Renzo Beatty Work Phone: [facility] 04-11-2022 11:58-0500 SaO2% (BldA) [Mass fraction] 98 % Dr. Renzo Beatty Work Phone: [facility] 04-11-2022 11:58-0500 Systolic blood pressure 138 mm[Hg] Dr. Renzo Beatty Work Phone: [facility] 03-19-2022 14:05-0500 Body mass index (BMI) [Ratio] 36.1 kg/m2 Dr. Renzo Beatty Work Phone: [facility] 03-19-2022 14:05-0500 Body temperature 97 [degF] Dr. Renzo Beatty Work Phone: [facility] 03-19-2022 14:05-0500 Diastolic blood pressure 77 mm[Hg] Dr. Renzo Beatty Work Phone: [facility] 03-19-2022 14:05-0500 Heart rate 79 /min Dr. Renzo Beatty Work Phone: [facility] 03-19-2022 14:05-0500 Systolic blood pressure 139 mm[Hg] Dr. Renzo Beatty Work Phone: [facility] 02-26-2022 00:36-0400 Body weight 111.[address] Renzo Beatty Work Phone: [facility] 02-26-2022 00:36-0400 Respiratory rate 18 /min Dr. Renzo Beatty Work Phone: [facility] 02-19-2022 07:59-0400 Body mass index (BMI) [Ratio] 36.1 kg/m2 Dr. Renzo Beatty Work Phone: [facility] Work Phone: 02-19-2022 07:59-0400 Body temperature 96.7 [degF] Dr. Renzo Beatty Work Phone: [facility] Work Phone: 02-19-2022 07:59-0400 Diastolic blood pressure 68 mm[Hg] Dr. Renzo Beatty Work Phone: [facility] Work Phone: 02-19-2022 07:59-0400 Heart rate 53 /min Dr. Renzo Beatty Work Phone: [facility] Work Phone: 02-19-2022 07:59-0400 Respiratory rate 18 /min Dr. Renzo Beatty Work Phone: [facility] Work Phone: 02-19-2022 07:59-0400 Systolic blood pressure 135 mm[Hg] Dr. Renzo Beatty Work Phone: [facility] Work Phone: 02-05-2022 13:12-0400 Body mass index (BMI) [Ratio] 36.1 kg/m2 Dr. Renzo Beatty Work Phone: [facility] Work Phone: 02-05-2022 13:12-0400 Body temperature 97.5 [degF] Dr. Renzo Beatty Work Phone: [facility] Work Phone: 02-05-2022 13:12-0400 Diastolic blood pressure 87 mm[Hg] Dr. Renzo Beatty Work Phone: [facility] Work Phone: 02-05-2022 13:12-0400 Heart rate 61 /min Dr. Renzo Beatty Work Phone: [facility] Work Phone: 02-05-2022 13:12-0400 Systolic blood pressure 135 mm[Hg] Dr. Renzo Beatty Work Phone: [facility] Work Phone: 01-26-2022 01:45-0400 Body weight 111.[address] Renzo Beatty Work Phone: [facility] Work Phone: 01-26-2022 01:45-0400 Respiratory rate 22 /min Dr. Renzo Beatty Work Phone: [facility] Work Phone: 01-22-2022 11:04-0400 Body mass index (BMI) [Ratio] 36.1 kg/m2 Dr. Renzo Beatty Work Phone: [facility] Work Phone: 01-22-2022 11:04-0400 Body temperature 97.3 [degF] Dr. Renzo Beatty Work Phone: [facility] Work Phone: 01-22-2022 11:04-0400 Diastolic blood pressure 85 mm[Hg] Dr. Renzo Beatty Work Phone: [facility] Work Phone: 01-22-2022 11:04-0400 Heart rate 55 /min Dr. Renzo Beatty Work Phone: [facility] Work Phone: 01-22-2022 11:04-0400 Respiratory rate 22 /min Dr. Renzo Beatty Work Phone: [facility] Work Phone: 01-22-2022 11:04-0400 Systolic blood pressure 147 mm[Hg] Dr. Renzo Beatty Work Phone: [facility] Work Phone: 01-08-2022 13:12-0400 Body height 175.[address] Renzo Beatty Work Phone: [facility] Work Phone: 01-08-2022 13:12-0400 Body weight 111.[address] Renzo Beatty Work Phone: [facility] Work Phone: 01-01-2022 13:58-0400 Body temperature 98.4 [degF] Dr. Renzo Beatty Work Phone: [facility] Work Phone: 01-01-2022 13:58-0400 Diastolic blood pressure 98 mm[Hg] Dr. Renzo Beatty Work Phone: [facility] Work Phone: 01-01-2022 13:58-0400 Heart rate 62 /min Dr. Renzo Beatty Work Phone: [facility] Work Phone: 01-01-2022 13:58-0400 Respiratory rate 16 /min Dr. Renzo Beatty Work Phone: [facility] Work Phone: 01-01-2022 13:58-0400 SaO2% (BldA) [Mass fraction] 99 % Dr. Renzo Beatty Work Phone: [facility] Work Phone: 01-01-2022 13:58-0400 Systolic blood pressure 142 mm[Hg] Dr. Renzo Beatty Work Phone: [facility] Work Phone: 12-18-2021 10:36-0400 Body mass index (BMI) [Ratio] 35.9 kg/m2 Dr. Renzo Beatty Work Phone: [facility] Work Phone: 12-18-2021 10:36-0400 Body weight 113.[address] Renzo Beatty Work Phone: [facility] Work Phone: 12-18-2021 10:36-0400 Diastolic blood pressure 84 mm[Hg] Dr. Renzo Beatty Work Phone: [facility] Work Phone: 12-18-2021 10:36-0400 Systolic blood pressure 138 mm[Hg] Dr. Renzo Beatty Work Phone: [facility] Work Phone: 10-15-2021 11:01-0400 Body temperature 98 [degF] Dr. Renzo Beatty Work Phone: [facility] Work Phone: 10-15-2021 11:01-0400 Diastolic blood pressure 74 mm[Hg] Dr. Renzo Beatty Work Phone: [facility] Work Phone: 10-15-2021 11:01-0400 Heart rate 57 /min Dr. Renzo Beatty Work Phone: [facility] Work Phone: 10-15-2021 11:01-0400 Respiratory rate 14 /min Dr. Renzo Beatty Work Phone: [facility] Work Phone: 10-15-2021 11:01-0400 SaO2% (BldA) [Mass fraction] 98 % Dr. Renzo Beatty Work Phone: [facility] Work Phone: 10-15-2021 11:01-0400 Systolic blood pressure 138 mm[Hg] Dr. Renzo Beatty Work Phone: [facility] Work Phone: 01-09-2017 17:07-0400 BMI (Body Mass Index) 49.61 kg/m2 Sho Welch LPN [facility] Work Phone: 01-09-2017 17:07-0400 Body Temperature 97.1 [degF] Sho Welch LPN [facility] Work Phone: 01-09-2017 17:07-0400 BP Diastolic 86 mm[Hg] Sho Welch LPN [facility] Work Phone: 01-09-2017 17:07-0400 BP Systolic 128 mm[Hg] Sho Welch LPN [facility] Work Phone: 01-09-2017 17:07-0400 Height 175.26 cm Sho Welch LPN [facility] Work Phone: 01-09-2017 17:07-0400 Pulse (Heart Rate) 62 /min Sho Welch LPN [facility] Work Phone: 01-09-2017 17:07-0400 Respiratory Rate 14 /min Sho Welch LPN [facility] Work Phone: 01-09-2017 17:07-0400 Weight 152.41 kg Sho Welch LPN [facility] Work Phone: 11-18-2016 10:53-0400 BMI (Body Mass Index) 50.23 kg/m2 Fadia Patel LPN [facility] Work Phone: 11-18-2016 10:53-0400 Body Temperature 98.8 [degF] Fadia Patel LPN [facility] Work Phone: 11-18-2016 10:53-0400 BP Diastolic 90 mm[Hg] Fadia Patel LPN [facility] Work Phone: 11-18-2016 10:53-0400 BP Systolic 150 mm[Hg] Fadia Patel SECOND WORKER [facility] Work Phone: 11-18-2016 10:53-0400 Height 175.26 cm Fadia Patel LPN [facility] Work Phone: 11-18-2016 10:53-0400 Pulse (Heart Rate) 91 /min Fadia Patel LPN [facility] Work Phone: 11-18-2016 10:53-0400 Respiratory Rate 16 /min Fadia Patel LPN [facility] Work Phone: 11-18-2016 10:53-0400 Weight 154.31 kg Fadia Patel LPN [facility] Work Phone: 10-18-2015 15:34-0400 Heart rate 58 /min [email or web address] Work Phone: 10-18-2015 14:20-0400 BMI (Body Mass Index) 49.04 kg/m2 [facility] Work Phone: 10-18-2015 14:20-0400 Body Temperature 98.2 [degF] [facility] Work Phone: 10-18-2015 14:20-0400 Body weight 155.04 kg Kayleigh Tian [place] Work Phone: 10-18-2015 14:20-0400 BP Diastolic 78 mm[Hg] [facility] Work Phone: 10-18-2015 14:20-0400 BP Systolic 120 mm[Hg] [facility] Work Phone: 10-18-2015 14:20-0400 BSA (Body Surface Area) 2.62 m2 [facility] Work Phone: 10-18-2015 14:20-0400 Pulse (Heart Rate) 60 /min [facility] Work Phone: 10-18-2015 14:20-0400 Pulse Oximetry 98 % [facility] Work Phone: 10-18-2015 14:20-0400 Respiratory Rate 16 /min [facility] [address] [facility] Work Phone: 10-18-2015 14:20-0400 Weight 155.04 kg Maru SOUZA Medical [facility] er [facility] Work Phone: 08-04-2010 11:20-0400 Height 177.8 cm Maru SOUZA Medical [facility] er [facility] Work Phone: 08-04-2010 11:20-0400 Pulse (Heart Rate) 89 /min Maru Alvares [facility] enter [facility] Work Phone: Encounters Encounter Date Encounter Type Care Provider Facility Start: 01-28-2025 End: 01-28-2025 ambulatory Renzo Jaci Facility:[facility] Start: 01-27-2025 End: 01-27-2025 ambulatory Renzo [facility] Facility:[facility] Start: 12-23-2024 End: 12-23-[address] Jai Miranda MD -[facility] Work Phone: Start: 12-23-2024 End: 12-23-[address] Jai Miranda MD Work Phone: -[place] [facility] Start: 12-21-2024 End: 12-21-[address] Jai Miranda MD Work Phone: -Radiology [facility] Start: 12-21-2024 End: 12-21-[address] Jai Miranda MD -Radiology [facility] Work Phone: Start: 12-21-2024 End: 12-21-2024 ambulatory Jai Miranda Facility:[facility] Start: 10-11-2024 End: 10-11-[address] Renzo Beatty DO Work Phone: [facility] Work Phone: Start: 10-11-2024 End: 10-11-[address] Jai Miranda MD -Physical Therapy Work Phone: Start: 09-21-[address] Jai garcía MD -Physical Therapy Work Phone: Start: 09-21-2024 End: 09-21-[address] Renzo Beatty DO Work Phone: [facility] Work Phone: Start: 09-21-2024 End: 09-21-[address] Jai Miranda MD -[place] [facility] Work Phone: Start: 09-21-2024 End: 09-21-2024 ambulatory Jai Miranda Facility:[facility] Start: 09-16-[address] Jai garcía MD -Physical Therapy Work Phone: Start: 08-05-[address] Jai garcía MD -Physical Therapy Work Phone: Start: 08-03-2024 End: 08-03-[address] Renzo Beatty DO Work Phone: [facility] Work Phone: Start: 08-03-2024 End: 08-03-[address] Jai Miranda MD -[place] [facility] Work Phone: Start: 08-03-2024 End: 08-03-2024 ambulatory Jai Miranda Facility:[facility] Start: 07-22-[address] Jai garcía MD -Physical Therapy Work Phone: Start: 07-15-2024 End: 07-15-2024 Patient encounter procedure Eden Sorto [employer] -Cardiovascular Services Work Phone: Start: 07-15-2024 End: 07-15-[address] Renzo Beatty DO Work Phone: [facility] Work Phone: Start: 07-15-2024 End: 07-15-2024 ambulatory Eden Sorto Facility:[facility] Start: 07-14-[address] Jai garcía MD -Physical Therapy Work Phone: Start: 07-09-2024 Encounter for other preprocedural examination Mayco Johnson [facility] Start: 07-06-2024 End: 07-06-2024 Patient encounter procedure Yesenia GERARD -[facility] Work Phone: Start: 07-06-2024 End: 07-06-[address] Renzo Beatty DO Work Phone: [facility] Work Phone: Start: 07-06-2024 End: 07-06-2024 ambulatory Yesenia Coy Facility:[facility] Start: 06-22-2024 Non-patient / Non-visit Dr. Claudia Clemente [facility] Work Phone: Start: 06-22-2024 Non-[facility] / [facility] Start: 06-21-2024 Non-patient / Non-visit Dr. Mayco pate [facility] Work Phone: Start: 06-21-2024 Non-patient / Non-visit Dr. Mayco perry MD -[facility] Start: 06-21-[facility] Start: 06-21-2024 End: 06-22-2024 Evaluation and management of inpatient Dr. Jai Miranda MD -Medical Surgical 3 Work Phone: Start: 06-21-2024 Non-patient / Non-visit Dr. Jai dorantes MD -[facility] Start: 06-21-2024 [facility] Start: 06-11-2024 End: 06-11-[address] Jai Miranda MD -[place] [facility] Work Phone: Start: 06-11-2024 End: 06-11-2024 ambulatory Jaigenevieve Miranda Facility:[facility] Start: 06-10-2024 Encounter for genera l adult medical examination without abnormal findings Renzo Beatty [facility] Start: 05-27-2024 End: 05-27-2024 ambulatory Ernesto Ramirez Facility:[facility] Start: 05-27-[address] Ernesto lux MD -Physical Therapy Work Phone: Start: 05-17-2024 End: 05-17-2024 ambulatory Ernesto Mollison Facility:[facility] Start: 05-17-2024 End: 05-17-[address] Ernesto Ramirez MD -[facility] Work Phone: Start: 05-17-2024 End: 05-17-2024 ambulatory Renzo Jaci Facility:[facility] Start: 04-19-2024 End: 04-19-[address] Ernesto Ramirez MD -[facility] Work Phone: Start: 04-19-2024 End: 04-19-2024 ambulatory Ernesto Mollалександр Facility:[facility] Start: 04-09-2024 End: 04-09-[address] Ernesto Ramirez MD -[place] [facility] Work Phone: Start: 04-09-2024 End: 04-09-2024 ambulatory Ernesto Mollison Facility:[facility] Start: 04-07-2024 ambulatory Ernesto Mollison Facility :[facility] Start: 04-07-2024 Non-patient / Non-visit Dr. Ernesto barkley MD -[facility] Start: 04-07-2024 End: 04-07-2024 Admission to same day surgery center Dr. Ernesto Ramirez MD -Surgical Day Care Start: 04-07-2024 End: 04-07-2024 ambulatory Ernesto [facility] Facility:[facility] Start: 04-05-2024 End: 04-05-[address] Jai Miranda MD -[facility] Work Phone: Start: 04-05-2024 End: 04-05-2024 ambulatory Jai Miranda Facility:[facility] Start: 03-31-2024 End: 03-31-[address] Renzo Beatty DO -Outpatient Bone Densitometry Work Phone: Start: 03-31-2024 End: 03-31-2024 ambulatory Renzo [facility] Facility:[facility] Start: 03-29-2024 End: 03-29-2024 ambulatory [facility] Start: 03-29-2024 End: 03-29-2024 Non-patient / Non-visit Dr. Rickey Winkler MD -[place] [facility] Work Phone: Start: 03-26-2024 End: 03-26-[address] Jai Miranda MD -[facility] Work Phone: Start: 03-26-2024 End: 03-26-2024 ambulatory Jai Miranda Facility:[facility] Start: 03-05-2024 End: 03-05-2024 ambulatory Renzo Beatty Facility:[facility] Start: 08-23-2023 End: 08-23-2023 Emergency department patient visit Dr. Renzo Beatty Work Phone: [facility]-Emergency Department Work Phone: Start: 08-21-[address] Renzo Beatty Work Phone: [facility]-Physical Therapy Work Phone: Start: 07-11-2023 End: 07-11-[address] Renzo Beatty Work Phone: [facility] Work Phone: Start: 07-11-2023 End: 07-11-[address] Renzo Beatty Work Phone: [facility] Work Phone: Start: 05-26-2023 Non-patient / Non-visit Dr. Claudia Beatty Work Phone: [facility] Start: 05-26-2023 End: 05-26-2023 Emergency department patient visit Dr. Renzo Beatty Work Phone: [facility]-Emergency Department Work Phone: Start: 05-14-2023 End: 05-14-[address] Renzo Beatty Work Phone: [facility] Work Phone: Start: 05-14-2023 End: 05-14-[address] [facility] Start: 04-23-2023 End: 04-23-[address] Renzo Beatty Work Phone: [facility] Work Phone: Start: 04-23-2023 End: 04-23-[address] Renzo Beatty Work Phone: [facility]-Physical Therapy Work Phone: Start: 04-23-[address] Renzo Beatty Work Phone: [facility]-Physical Therapy Work Phone: Start: 04-09-2023 End: 04-09-[address] Renzo Beatty Work Phone: [facility] Work Phone: Start: 03-24-[address] Renzo Beatty Work Phone: [facility]-Physical Therapy Work Phone: Start: 03-18-2023 End: 03-18-[address] Renzo Beatty Work Phone: [facility] Work Phone: Start: 03-18-2023 End: 03-18-[address] Renzo Beatty Work Phone: [facility] Work Phone: Start: 03-12-[address] Renzo Beatty Work Phone: [facility]-Physical Therapy Work Phone: Start: 03-11-2023 Non-patient / Non-visit Dr. Claudia Beatty Work Phone: [facility] Start: 03-11-2023 End: 03-11-2023 Admission to same day surgery center Dr. Renzo Beatty Work Phone: [facility]-Surgical Day Care Start: 03-11-2023 End: 03-11-[address] Renzo Beatty Work Phone: [facility] Work Phone: Start: 03-10-2023 End: 03-10-[address] Renzo Beatty Work Phone: [facility] Work Phone: Start: 03-10-2023 End: 03-10-[address] Renzo Beatty Work Phone: [facility] Work Phone: Start: 03-07-[address] Renzo Beatty Work Phone: [facility]-Physical Therapy Work Phone: Start: 02-10-2023 End: 02-10-[address] Renzo Beatty Work Phone: [facility] Work Phone: Start: 01-31-2023 Non-patient / Non-visit Dr. Claudia Beatty Work Phone: [facility] Start: 01-30-2023 Non-patient / Non-visit Dr. Claudia Beatty Work Phone: [facility] Start: 01-29-2023 Non-patient / Non-visit Dr. Claudia Beatty Work Phone: [facility] Start: 01-28-2023 Non-patient / Non-visit Dr. Claudia Beatty Work Phone: [facility] Start: 01-28-2023 End: 01-31-2023 Evaluation and management of inpatient Dr. Renzo Beatty Work Phone: [facility]-Medical Surgical 3 Work Phone: Start: 01-16-2023 End: 01-16-[address] Renzo Beatty Work Phone: [facility] Work Phone: Start: 12-04-2022 End: 12-04-[address] Renzo Beatty Work Phone: [facility] Work Phone: Start: 12-04-2022 End: 12-04-[address] Renzo Beatty Work Phone: [facility] Work Phone: Start: 11-26-2022 End: 11-26-[address] Renzo Beatty Work Phone: [facility] Work Phone: Start: 11-26-2022 End: 11-26-[address] Renzo Beatty Work Phone: [facility]-Physical Therapy Work Phone: Start: 11-13-2022 End: 11-13-[address] Renzo Beatty Work Phone: [facility] Work Phone: Start: 11-01-2022 End: 11-01-[address] Renzo Beatty Work Phone: [facility] Work Phone: Start: 10-23-[address] Renzo Beatty Work Phone: [facility]-Physical Therapy Work Phone: Start: 10-21-2022 End: 10-21-[address] Renzo Beatty Work Phone: [facility] Work Phone: Start: 10-21-2022 End: 10-21-[address] Renzo Beatty Work Phone: [facility]-MRI - [facility] Work Phone: Start: 10-14-2022 End: 10-14-[address] Renzo Beatty Work Phone: [facility] Work Phone: Start: 10-02-2022 End: 10-02-[address] Renzo Beatty Work Phone: [facility] Work Phone: Start: 09-17-2022 Non-patient / Non-visit Dr. Claudia Beatty Work Phone: [facility] Start: 09-17-2022 End: 09-17-2022 Admission to same day surgery center Dr. Renzo Beatty Work Phone: [facility]-Surgical Day Care Start: 09-16-2022 End: 09-16-[address] Renzo Beatty Work Phone: [facility] Work Phone: Start: 09-12-2022 End: 09-12-[address] Renzo Beatty Work Phone: [facility] Work Phone: Start: 09-06-2022 End: 09-06-[address] Renzo Beatty Work Phone: [facility]-Radiology, [facility] Work Phone: Start: 09-06-2022 End: 09-06-[address] Renzo Beatty Work Phone: [facility] Work Phone: Start: 08-19-2022 End: 08-19-[address] Renzo Beatty Work Phone: [facility] Work Phone: Start: 08-09-2022 Non-patient / Non-visit Dr. Claudia Beatty Work Phone: [facility] Start: 08-08-2022 Non-patient / Non-visit Dr. Claudia Beatty Work Phone: [facility] Start: 08-07-2022 Non-patient / Non-visit Dr. Claduia Beatty Work Phone: [facility] Start: 08-06-2022 Non-patient / Non-visit Dr. Claudia Beatty Work Phone: [facility] Start: 08-05-2022 Non-patient / Non-visit Dr. Claudia Beatty Work Phone: [facility] Start: 08-05-2022 End: 08-08-2022 Evaluation and management of inpatient Dr. Renzo Beatty Work Phone: [facility] Start: 07-25-2022 End: 07-25-[address] Renzo Beatty Work Phone: [facility] Start: 07-15-2022 End: 07-15-[address] Renzo Beatty Work Phone: [facility] Work Phone: Start: 07-15-2022 End: 07-15-[address] Renzo Beatty Work Phone: [facility] Start: 06-20-2022 Non-patient / Non-visit Dr. Claudia Beatty Work Phone: [facility] Start: 06-20-2022 End: 06-20-[address] Renzo Beatty Work Phone: [facility] Work Phone: Start: 06-20-2022 End: 06-20-[address] Renzo Beatty Work Phone: [facility] Start: 06-03-2022 End: 06-03-[address] Renzo Beatty Work Phone: [facility] Start: 05-30-2022 End: 05-30-[address] Renzo Beatty Work Phone: [facility] Start: 04-11-2022 End: 04-11-[address] Renzo Beatty Work Phone: [facility] Start: 03-19-2022 End: 03-19-[address] Renzo Beatty Work Phone: [facility] Work Phone: Start: 03-19-2022 End: 03-19-[address] [facility] Start: 03-15-2022 End: 03-15-[address] Renzo Beatty Work Phone: [facility] Start: 03-08-2022 End: 03-08-[address] Renzo Beatty Work Phone: [facility] Start: 03-01-2022 End: 03-01-[address] Renzo Beatty Work Phone: [facility] Start: 02-19-2022 End: 02-25-[address] Renzo Beatty Work Phone: [facility] Work Phone: Start: 02-19-2022 End: 02-25-[address] [facility] Start: 02-11-2022 End: 02-11-[address] Renzo Beatty Work Phone: [facility] Start: 02-09-2022 End: 02-09-[address] Renzo Beatty Work Phone: [facility] Work Phone: Start: 02-09-2022 End: 02-09-[address] Renzo Beatty Work Phone: [facility] Start: 02-05-[address] Renzo Beatty Work Phone: [facility] Start: 02-04-2022 End: 02-04-[address] Renzo Beatty Work Phone: [facility] Start: 01-22-2022 End: 01-25-[address] Renzo Beatty Work Phone: [facility] Work Phone: Start: 01-22-2022 End: 01-25-[address] Renzo Beatty Work Phone: [facility] Start: 01-22-2022 End: 01-22-[address] Renzo Beatty Work Phone: [facility] Start: 01-15-2022 End: 01-15-[address] Renzo Beatty Work Phone: [facility] Start: 01-01-2022 End: 01-01-[address] Renzo Beatty Work Phone: [facility] Start: 12-25-2021 End: 12-25-[address] Renzo Beatty Work Phone: [facility] Start: 12-18-2021 End: 12-18-[address] Rezno Beatty Work Phone: [facility] Start: 10-15-2021 End: 10-15-[address] Renzo Beatty Work Phone: [facility] Start: 06-23-2018 Patient encounter procedure MAKI RUSH Facility:[facility] Start: 03-25-2018 End: 03-25-2018 Patient encounter procedure ANIRUDH MUJICA Facility:[facility] Start: 12-19-2017 End: 12-20-2017 Patient encounter procedure ROSALINDAER R GARRET Facility:[facility] Start: 12-12-2017 Patient encounter procedure CHRISTOPHER R GARRET Facility:[facility] Start: 10-21-2017 End: 10-21-2017 Patient encounter procedure IMCA Facility:[facility] Start: 09-12-2017 End: 09-12-2017 Patient encounter procedure CHRISTOPHER R GARRET Facility:[facility] Start: 09-02-2017 End: 09-02-2017 Patient encounter procedure Cyril Combs Work Phone: [facility] Start: 09-02-2017 Results Only Cyril Combs Work Phone: [facility] Start: 09-02-2017 End: 09-04-2017 Evaluation and management of inpatient CHRISTOPHER R GARRET Facility:[facility] Start: 08-26-2017 End: 08-27-2017 Patient encounter procedure MAKI RUSH Facility:[facility] Start: 08-21-2017 End: 08-21-2017 Patient encounter procedure SUZE COMBS Facility:[facility] Start: 07-22-2017 End: 07-22-2017 Patient encounter procedure MAKI KIRBYSH Facility:[facility] Start: 07-08-2017 Patient encounter procedure ELTON GONZALEZ Facility:[facility] Start: 06-25-2017 Patient encounter procedure MAKI JESUSTASH Facility:[facility] Start: 06-24-2017 End: 06-24-2017 Patient encounter procedure MAKI JESUSTASH Facility:[facility] Start: 06-10-2017 End: 06-10-2017 Patient encounter procedure ELTON GONZALEZ Facility:[facility] Start: 05-20-2017 Patient encounter procedure ELTON GOZNALEZ Facility:[facility] Start: 05-13-2017 End: 05-13-2017 Patient encounter procedure MAKI KIRBYSH Facility:[facility] Start: 04-25-2017 Patient encounter procedure MAKI RUSH Facility:[facility] Start: 04-14-2017 End: 04-14-2017 Patient encounter procedure Cyril Combs Work Phone: [facility] Start: 04-14-2017 Results Only Cyril Combs Work Phone: [facility] Start: 04-14-2017 End: 04-14-2017 Evaluation and management of inpatient ROSALINDAER R GARRET Facility:[facility] Procedures Date Procedure Procedure Detail Performing Clinician Start: 12-21-2024 X-ray of lumbosacral spine Dr. Jai Miranda MD Work Phone: Start: 09-21-2024 X-ray of lumbar spin e, two or three views Dr. Renzo Beatty DO Work Phone: Start: 08-03-2024 X-ray [...] HAVtotal antibody results to IgM (e.g., panel #[id number] HAVAntibody w/ Rfx).Performed at: [address] [id number] Director: Walter Olmos PhD, Phone: [phone] Start: 06-11-2024 Hepatitis C antibody measurement Dr. [...] on above: Performed By: #### T &S ####[place] [id number] Start: 04-14-2017 CONVERTED SURGICAL PATHOLOGY Cyril Nolascogle [...] 08-31-2015 Alanine aminotransferase (ALT) Renzo Beatty DO [employer] Phone: Start: 08-14-2015 End: 08-31-2015 Aspartate aminotransferase (AST) Renzo Beatty DO [employer] Phone: Start: 08-14-2015 End: 08-31-2015 HbA1c Renzo Beatty DO [employer] Phone: Start: 08-14-2015 End: 08-31-2015 Lipid panel [AGGREGATE] Renzo Beatty DO [employer] Phone: Start: 04-11-2015 End: 04-17-2015 *CMP Complete Metabolic Panel Renzo Beatty [employer] Phone: Start: 04-11-2015 End: 04-17-2015 *Microalbumin, Creatine Ratio, rand urine Renzo Beatty DO [employer] Phone: Start: 04-11-2015 End: 04-17-2015 HbA1c Renzo Beatty DO [employer] Phone: Start: 04-11-2015 End: 04-17-2015 Lipid panel [AGGREGATE] Renzo Beatty DO [employer] Phone: Start: 03-30-2015 End: 03-30-2015 Urinalysis Kayleigh [...] views Lumbar Spine 2 or 3 Views [facility] Start: 07-06-2024 Patient referral [facility] Work Phone: Start: 06-22-2024 Patient discharge [facility] Start: 06-22-2024 Catheterization of vein [facility] Start: 06-21-2024 Following clinical pathway protocol [facility] Start: 06-21-2024 Application of device [facility] Start: 06-21-2024 Consultation [facility] Start: 06-21-2024 Assessment of risk of venous thromboembolism [facility] Start: 06-21-2024 Following clinical pathway protocol [facility] Start: 06-21-2024 Incentive spirometry [facility] Start: 06-21-2024 Introduction of urinary catheter [facility] Start: 06-21-2024 Measuring intake and output [facility] Start: 06-21-2024 Neurovascular assessment [facility] Start: 06-21-2024 Oxygen therapy [facility] Start: 06-21-2024 Patient education [facility] Start: 06-21-2024 Provision of activity privileges [facility] Start: 06-21-2024 Referral to occupational therapist [facility] Start: 06-21-2024 Taking patient vital signs [facility] Start: 06-21-2024 End: 06-21-2024 [facility] Start: 06-21-2024 Admission procedure [facility] Start: 06-21-2024 Referral to service [facility] Start: 04-19-2024 Patient referral [facility] Work Phone: Start: 04-07-2024 Anes arthrs humeral h/n strnclav & shoulder nos ANESTH SURGERY OF SHOULDER [facility] Start: 04-07-2024 Arthroscopy shoulder surg debridement limited RASHARD ARTHRS SRG LMTD DBRDMT [facility] Start: 04-07-2024 Arthroscopy shoulder w/coracoacrm ligmnt release RASHARD ARTHRS SRG DECOMPRESSION [facility] Start: 04-07-2024 Injection aa&/strd other peripheral nerve/branch NJX AA&/STRD OTHER PN/BRANCH [facility] Start: 04-07-2024 Patient discharge [facility] Start: 04-07-2024 Application of device [facility] Start: 04-07-2024 Assessment of risk of venous thromboembolism [facility] Start: 04-07-2024 Catheterization of vein [facility] Start: 04-07-2024 Deep breathing and coughing exercises [facility] Start: 04-07-2024 Following clinical pathway protocol [facility] Start: 04-07-2024 Incentive spirometry [facility] Start: 04-07-2024 Introduction of urinary catheter [facility] Start: 04-07-2024 Patient education [facility] Start: 04-07-2024 Taking patient vital signs [facility] Start: 04-07-2024 Vital signs measurements [facility] Start: 04-07-2024 End: 04-07-2024 [facility] Start: 04-07-2024 Medication education [facility] Start: 08-23-2023 X-ray of both feet Foot min 3 Views [facility] Start: 08-23-2023 XR Foot GE 3 Views [facility] Start: 07-11-2023 Patient referral [facility] Work Phone: Start: 05-26-2023 [facility] Start: 03-11-2023 Application of ice collar, cap or bag [facility] Start: 03-11-2023 Catheterization of vein [facility] Start: 03-11-2023 Elevation of affected extremity [facility] Start: 03-11-2023 Following clinical pathway protocol [facility] Start: 03-11-2023 Patient discharge [facility] Start: 03-11-2023 Procedure discontinued [facility] Start: 03-11-2023 Taking patient vital signs [facility] Start: 03-11-2023 Vital signs measurements [facility] Start: 03-11-2023 [facility] Start: 03-11-2023 Anesthesia closed procedures knee joint ANESTH KNEE JOINT PROCEDURE [facility] Start: 03-11-2023 Arthrocentesis aspir&/inj major jt/bursa w/o us DRAIN/INJ JOINT/BURSA W/O US [facility] Start: 03-11-2023 Manipulation knee joint under general anesthesia FIXATION OF KNEE JOINT [facility] Start: 03-11-2023 Medication education [facility] Start: 01-31-2023 Patient discharge [facility] Start: 01-28-2023 End: 01-29-2023 [facility] Start: 01-28-2023 Following clinical pathway protocol [facility] Start: 01-28-2023 Provision of overbed trapeze [facility] Start: 01-28-2023 Admission procedure [facility] Start: 01-28-2023 Ambulation therapy management [facility] Start: 01-28-2023 Application of device [facility] Start: 01-28-2023 Application of elastic bandage [facility] Start: 01-28-2023 Assessment of risk of venous thromboembolism [facility] Start: 01-28-2023 Catheterization of vein [facility] Start: 01-28-2023 Exercises [facility] Start: 01-28-2023 Following clinical pathway protocol [facility] Start: 01-28-2023 Introduction of urinary catheter [facility] Start: 01-28-2023 Measuring intake and output [facility] Start: 01-28-2023 Neurovascular assessment [facility] Start: 01-28-2023 Patient education [facility] Start: 01-28-2023 Procedure discontinued [facility] Start: 01-28-2023 Provision of activity privileges [facility] Start: 01-28-2023 Recommendation to continue with treatment [facility] Start: 01-28-2023 Referral to occupational therapist [facility] Start: 01-28-2023 Referral to service [facility] Start: 01-28-2023 Vital signs measurements [facility] Start: 01-28-2023 Wound care [facility] Start: 09-17-2022 Application of ice collar, cap or bag [facility] Start: 09-17-2022 Catheterization of vein [facility] Start: 09-17-2022 Elevation of affected extremity [facility] Start: 09-17-2022 Following clinical pathway protocol [facility] Start: 09-17-2022 Patient discharge [facility] Start: 09-17-2022 Procedure discontinued [facility] Start: 09-17-2022 Taking patient vital signs [facility] Start: 09-17-2022 Vital signs measurements [facility] Start: 09-17-2022 [facility] Start: 09-17-2022 Anesthesia closed procedures knee joint ANESTH KNEE JOINT PROCEDURE [facility] Start: 09-17-2022 Arthrocentesis aspir&/inj major jt/bursa w/o us DRAIN/INJ JOINT/BURSA W/O US [facility] Start: 09-17-2022 Manipulation knee joint under general anesthesia FIXATION OF KNEE JOINT [facility] Start: 09-17-2022 Medication education [facility] Start: 08-08-2022 Patient discharge [facility] Start: 08-07-2022 [facility] Start: 08-06-2022 Application of intermittent pneumatic compression device [facility] Start: 08-05-2022 Following clinical pathway protocol [facility] Start: 08-05-2022 Provision of overbed trapeze [facility] Start: 08-05-2022 Admission procedure [facility] Start: 08-05-2022 Recommendation to continue with treatment [facility] Start: 08-05-2022 Ambulation therapy management [facility] Start: 08-05-2022 Application of device [facility] Start: 08-05-2022 Application of elastic bandage [facility] Start: 08-05-2022 Assessment of risk of venous thromboembolism [facility] Start: 08-05-2022 Catheterization of vein [facility] Start: 08-05-2022 Exercises [facility] Start: 08-05-2022 Following clinical pathway protocol [facility] Start: 08-05-2022 Introduction of urinary catheter [facility] Start: 08-05-2022 Measuring intake and output [facility] Start: 08-05-2022 Neurovascular assessment [facility] Start: 08-05-2022 Patient education [facility] Start: 08-05-2022 Procedure discontinued [facility] Start: 08-05-2022 Provision of activity privileges [facility] Start: 08-05-2022 Referral to occupational therapist [facility] Start: 08-05-2022 Referral to service [facility] Start: 08-05-2022 Vital signs measurements [facility] Start: 08-05-2022 Wound care [facility] Start: 08-05-2022 [facility] Start: 08-05-2022 [facility] Start: 12-28-2019 Influenza vaccination INFLUENZA (#1) [facility] Start: 2018 SHINGRIX VACCINE (1 of 2) SHINGRIX VACCINE (1 of 2) [facility] Start: 2018 Tuberculosis screening COLORECTAL CANCER SCREENING,SEE MODIFIER [facility] Start: 01-09-2017 End: 01-09-2017 Appointment Appointment [facility] Work Phone: Start: 11-18-2016 End: 11-18-2016 Appointment Appointment [facility] Work Phone: Start: 08-16-2016 End: 08-20-2016 Extremity study Venous Doppler LE Right [facility] Work Phone: Start: 08-16-2016 End: 08-16-2016 Us xtr non-vasc lmtd US Extremity, nonvascular; limited, anatomic specific [facility] Work Phone: Start: 07-10-2016 End: 07-10-2016 Physical Therapy General Physical Therapy [facility], [address] [place] [address], [id number] [facility] Work Phone: Start: 07-04-2016 End: 07-04-2016 Extremity study Venous Doppler LE Right [facility] Work Phone: Start: 04-23-2016 End: 05-29-2016 Mri jnt of lwr extre w/o dye MRI Joint Lower Extremity [facility] Work Phone: Start: 02-22-2016 End: 03-05-2016 *BFRW - Body Fluid RBC, WBC & DIFF *BFRW - Body Fluid RBC, WBC & DIFF [facility] Work Phone: Start: 02-22-2016 End: 03-05-2016 Bacteria identified in Body fluid by Culture *CUBF- Culture, Body Fluid [facility] Work Phone: Start: 02-22-2016 End: 03-05-2016 Crystals [type] in Body fluid by Light microscopy *GABRIELA - Crystals, Body Fluid [facility] Work Phone: Start: 02-22-2016 End: 03-05-2016 Glucose *GLUBF - Glucose, Body Fluid [facility] Work Phone: Start: 02-22-2016 End: 03-05-2016 Glucose mass conc (Body fld) *GLUBF - Glucose, Body Fluid [facility] Work Phone: Start: 02-22-2016 End: 03-05-2016 Protein in fluid *PROBF - Protein, Body Fluid [facility] Work Phone: Start: 11-23-2015 End: 12-05-2015 Podiatry Referral Podiatry Referral Ghulam Mendez, [address] [facility], [address], [place], [address] [facility] Work Phone: Start: 10-18-2015 End: 10-18-2015 Electrocardiogram, complete EKG (In office) [facility] Work Phone: Start: 08-31-2015 End: 09-01-2015 Orthopedic Referral Orthopedic Referral Maru Alvares, [facility], [address] [place] [address] [address], [place], [address] [facility] Work Phone: Start: 08-14-2015 End: 08-31-2015 Alanine aminotransferase (ALT) *ALT (SGPT) [facility] Work Phone: Start: 08-14-2015 End: 08-31-2015 Aspartate aminotransferase (AST) *AST (SGOT) [facility] Work Phone: Start: 08-14-2015 End: 08-31-2015 HbA1c *HgA1C [facility] Work Phone: Start: 08-14-2015 End: 08-31-2015 Lipid panel [AGGREGATE] *Lipid Profile [facility] Work Phone: Start: 08-09-2015 End: 08-11-2015 Other Referral Other Referral [facility] Services, [address] [place] [address], [address] [facility] Work Phone: Start: 04-11-2015 End: 04-17-2015 *CMP Complete Metabolic Panel *CMP Complete Metabolic Panel [facility] Work Phone: Start: 04-11-2015 End: 04-17-2015 *Microalbumin, Creatine Ratio, rand urine *Microalbumin, Creatine Ratio, rand urine [facility] Work Phone: Start: 04-11-2015 End: 04-17-2015 HbA1c *HgA1C [facility] Work Phone: Start: 04-11-2015 End: 04-17-2015 Lipid panel [AGGREGATE] *Lipid Profile [facility] Work Phone: Start: 03-30-2015 End: 03-30-2015 Contrst x-ray, urinary tract X-Ray, KUB [facility] Work Phone: Start: 03-30-2015 End: 03-30-2015 Urinalysis nonauto w/o scope UA Dipstick (Office) [facility] Work Phone: Start: 03-22-2015 End: 03-30-2015 Neurology Referral Neurology Referral Dawson Penny, [address], [place], [address] [facility] Work Phone: Start: 02-13-2015 End: 02-13-2015 X-ray exam, knee, 4 or more X-Ray, Knee [facility] Work Phone: Start: 01-05-2015 End: 01-05-2015 HbA1c HGB A1C (Office) [facility] Work Phone: Start: 1987 Urine microalbumin profile DTAP,TDAP,TD (1 - Tdap) [facility] Start: 1986 ANNUAL PCP TEAM CHRONIC DISEASE VISIT ANNUAL PCP TEAM CHRONIC DISEASE VISIT [facility] Start: 1986 Hepatitis B surface antibody level LDL CHOLESTEROL [facility] Start: 1986 HEPATITIS C SCREENING HEPATITIS C SCREENING [facility] Start: 1986 HIV SCREENING HIV SCREENING [facility] Start: 1984 ONE PNEUMOVAX PRIOR TO AGE 65 ONE PNEUMOVAX PRIOR TO AGE 65 [facility] Start: 1978 [object Object] DIABETIC FOOT EXAM [facility] Start: 1978 Hepatitis B screening URINE ALBUMIN:CREATININE RATIO [facility] Start: 1978 Hepatitis C antibody, confirmatory test DILATED RETINAL EXAM [facility] Start: 1973 HbA1c (Bld) [Mass fraction] HBA1C [facility] inic Electrocardiographic procedure [facility] Patient Education [facility] Work Phone: Patient referral [facility] Work Phone: Immunizations Immunization Date Immunization Notes Care Provider Fa ciliiza 02-07-2019 tetanus toxoid, redu golden diphtheria toxoid, and acellular pertussis vaccine, adsorbed Dr. Renzo Beatty Work Phone: [facility] 07-29-2018 tetanus toxoid, redu golden diphtheria toxoid, and acellular pertussis vaccine, adsorbed Dr. Renzo Beatty Work Phone: [facility] Payers Date Payer Category Payer Medicare [id number] 2024 Self-pay [id number] 2023 Unknown [id number] 2016 Unknown MMO MMO MHS [id number] 2016-Present Indemnity [id number] 1.2.840.178114.1.13.159.2.7.3. 787818.315 2016 Unknown [id number] 2009 Unknown [id number] 1968 Unknown [id number] 2.840.1.149936.3.579.2.278 1968 Unknown [id number] 2.840.1.972698.3.579.2.278 1968 Unknown [id number] 2.840.1.621888.3.579.2.278 1968 Unknown [id number] 2.16840.1.481253.3.579.2.278 1968 Unknown [id number] 2.16840.1.213011.3.579.2.278 1968 Unknown [id number] 2.16840.1.565326.3.579.2.278 1968 Unknown [id number] 2.16840.1.004219.3.579.2.278 1968 Unknown [id number] 2.16.840.1.437873.3.579.2.278 1968 Unknown [id number] 2.16.840.1.138831.3.579.2.278 1968 Unknown [id number] 2.16.840.1.204776.3.579.2.278 1968 Unknown [id number] 2.16.840.1.673090.3.579.2.278 1968 Unknown [id number] 2.16.840.1.754817.3.579.2.278 1968 Unknown [id number] 2.16.840.1.204037.3.579.2.278 1968 Unknown [id number] 2.16.840.1.379703.3.579.2.278 1968 Unknown [id number] 2.16.840.1.550152.3.579.2.278 1968 Unknown [id number] 2.16.840.1.980151.3.579.2.278 1968 Unknown [id number] 2.16.840.1.984298.3.579.2.278 1968 Unknown [id number] 2.16.840.1.010203.3.579.2.278 1968 Unknown [id number] 2.16.840.1.275038.3.579.2.278 1968 Unknown [id number] 2.16.840.1.724900.3.579.2.278 1968 Unknown [id number] 2.16.840.1.103228.3.579.2.278 1968 Unknown [id number] 2.16.840.1.702560.3.579.2.278 Medicare MEDICARE A ONLY [id number] Unknown [facility] [id number] Unknown [id number] 2.16.840.1.322845.3.579.2.462 Unknown [id number] 2.16.840.1.362267.3.579.2.462 Unknown [id number] 2.16.840.1.691005.3.579.2.462 Unknown [id number] 2.16.840.1.996443.3.579.2.462 Unknown [id number] 2.16.840.1.046654.3.579.2.462 Unknown [id number] 2.16.840.1.611119.3.579.2.462 Unknown [id number] 2.16.840.1.188444.3.579.2.462 Unknown [id number] 2.16.840.1.263034.3.579.2.462 Unknown [id number] 2.16.840.1.662643.3.579.2.462 Unknown [id number] 2.16.840.1.277943.3.579.2.462 Unknown [id number] 2.16.840.1.775877.3.579.2.462 Unknown [id number] 2.16.840.1.591894.3.579.2.462 Unknown [id number] 2.16.840.1.901678.3.579.2.462 Unknown [id number] 2.16.840.1.574383.3.579.2.462 Unknown [id number] 2.16.840.1.178218.3.579.2.462 Unknown [id number] 2.16.840.1.876523.3.579.2.462 Unknown [id number] 2.16.840.1.549516.3.579.2.462 Unknown [id number] 2.16.840.1.204944.3.579.2.462 Unknown [id number] 2.16.840.1.666059.3.579.2.462 Unknown [id number] 2.16.840.1.021770.3.579.2.462 Unknown [id number] 2.16.840.1.520318.3.579.2.462 Unknown [id number] 2.16.840.1.909241.3.579.2.462 Unknown [id number] 2.16.840.1.316086.3.579.2.462 Unknown [id number] 2.16840.1.737314.3.579.2.462 Unknown [id number] 2.16.840.1.531418.3.579.2.462 Unknown [id number] 2.16840.1.029434.3.579.2.462 Unknown [id number] 2.16840.1.635188.3.579.2.462 Unknown [id number] 2.16840.1.488324.3.579.2.462 Unknown [id number] 2.16840.1.493037.3.579.2.462 Unknown [id number] 2.16840.1.268205.3.579.2.462 Unknown [id number] 2.16840.1.822531.3.579.2.462 Unknown [id number] 2.840.1.242166.3.579.2.462 Social History Date Type Detail Facility Start: 04-14-2017 End: 09-02-2017 Tobacco smoking status COIS Never smoker [facility] Start: 09-02-2017 Tobacco use and exposure Never used [facility] Start: 04-14-2017 End: 09-02-2017 Alcohol intake Current non-drinker of alcohol (finding) [facility] Start: 1970 Sex Assigned At Male [facility] Start: 01-22-2022 End: 08-23-2023 Tobacco smoking status COIS Unknown if ever smoked [facility] Start: 07-29-2018 Spouse/ Signif icant Other [facility] Start: 06-04-2024 Tobacco smoking status NHIS Current some day smoker [facility] Start: 07-16-2024 End: 08-09-2024 Sex Male (finding) [facility] Medical Equipment Procedure Code Equipment Code Equipment Origin al Text Equipment Identifier Dates Fusion, spine, lumbar, 360 degree, starting in supine position transitioning to prone [id number] [place]age FDA Start: 06-21-2024 Fusion, spine, [...] transitioning to prone Collagen haemostatic agent, non-antimicrobial ()[id number])SPICER [id number] FDA Start: 06-21-2024 Fusion, spine, lumbar, 360 [...] starting in supine position transitioning to prone [place] Cage FDA Start: 06-21-2024 Fusion, spine, lumbar, 360 degree, starting in supine position transitioning to prone [place] Cage FDA Start: 06-21-2024 Fusion, spine, lumbar, 360 degree, starting in supine position transitioning to prone DRESSING,SURGICEL 4x8 FDA Start: 06-21-2024 Fusion, spine, lumbar, 360 degree, starting in supine position transitioning to prone Set Screws FDA Start: 06-21-2024 Fusion, spine, lumbar, 360 degree, starting in supine position transitioning to prone [id number] [place] Cage FDA Start: 06-21-2024 Fusion, spine, [...] starting in supine position transitioning to prone [place] Cage FDA Start: 06-21-2024 Fusion, spine, lumbar, 360 degree, starting in supine position transitioning to prone [place] Cage FDA Start: 06-21-2024 Fusion, spine, lumbar, 360 degree, starting in supine position transitioning to prone DRESSING,SURGICEL 4x8 FDA Start: 06-21-2024 Fusion, spine, lumbar, 360 degree, starting in supine position transitioning to prone Set Screws FDA Start: 06-21-2024 Fusion, spine, lumbar, 360 degree, starting in supine position transitioning to prone [id number] [place] Cage FDA Start: 06-21-2024 Fusion, spine, [...] starting in supine position transitioning to prone [place] Cage FDA Start: 06-21-2024 Fusion, spine, lumbar, 360 degree, starting in supine position transitioning to prone [place] Cage FDA Start: 06-21-2024 Fusion, spine, lumbar, 360 degree, starting in supine position transitioning to prone DRESSING,SURGICEL 4x8 FDA Start: 06-21-2024 Fusion, spine, lumbar, 360 degree, starting in supine position transitioning to prone Set Screws FDA Start: 06-21-2024 Fusion, spine, lumbar, 360 degree, starting in supine position transitioning to prone [id number] [place] Cage FDA Start: 06-21-2024 Fusion, spine, [...] starting in supine position transitioning to prone [place] Cage FDA Start: 06-21-2024 Fusion, spine, lumbar, 360 degree, starting in supine position transitioning to prone [place] Cage FDA Start: 06-21-2024 Fusion, spine, lumbar, 360 degree, starting in supine position transitioning to prone DRESSING,SURGICEL 4x8 FDA Start: 06-21-2024 Fusion, spine, lumbar, 360 degree, starting in supine position transitioning to prone Set Screws FDA Start: 06-21-2024 Fusion, spine, lumbar, 360 degree, starting in supine position transitioning to prone [id number] [place] Cage FDA Start: 06-21-2024 Fusion, spine, [...] starting in supine position transitioning to prone [place] Cage FDA Start: 06-21-2024 Fusion, spine, lumbar, 360 degree, starting in supine position transitioning to prone [place] Cage FDA Start: 06-21-2024 Fusion, spine, lumbar, 360 degree, starting in supine position transitioning to prone DRESSING,SURGICEL 4x8 FDA Start: 06-21-2024 Fusion, spine, lumbar, 360 degree, starting in supine position transitioning to prone Set Screws FDA Start: 06-21-2024 Fusion, spine, lumbar, 360 degree, starting in supine position transitioning to prone [id number] [place] Cage FDA Start: 06-21-2024 Fusion, spine, [...] starting in supine position transitioning to prone [place] Cage FDA Start: 06-21-2024 Fusion, spine, lumbar, 360 degree, starting in supine position transitioning to prone [place] Cage FDA Start: 06-21-2024 Fusion, spine, lumbar, 360 degree, starting in supine position transitioning to prone DRESSING,SURGICEL 4x8 FDA Start: 06-21-2024 Fusion, spine, lumbar, 360 degree, starting in supine position transitioning to prone Set Screws FDA Start: 06-21-2024 Fusion, spine, lumbar, 360 degree, starting in supine position transitioning to prone [id number] [place] Cage FDA Start: 06-21-2024 Fusion, spine, [...] starting in supine position transitioning to prone [place] Cage FDA Start: 06-21-2024 Fusion, spine, lumbar, 360 degree, starting in supine position transitioning to prone [place] Cage FDA Start: 06-21-2024 Fusion, spine, lumbar, 360 degree, starting in supine position transitioning to prone DRESSING,SURGICEL 4x8 FDA Start: 06-21-2024 Fusion, spine, lumbar, 360 degree, starting in supine position transitioning to prone Set Screws FDA Start: 06-21-2024 Fusion, spine, lumbar, 360 degree, starting in supine position transitioning to prone [id number] [place] Cage FDA Start: 06-21-2024 Fusion, spine, [...] starting in supine position transitioning to prone [place] Cage FDA Start: 06-21-2024 Fusion, spine, lumbar, 360 degree, starting in supine position transitioning to prone [place] Cage FDA Start: 06-21-2024 Fusion, spine, lumbar, 360 degree, starting in supine position transitioning to prone DRESSING,SURGICEL 4x8 FDA Start: 06-21-2024 Fusion, spine, lumbar, 360 degree, starting in supine position transitioning to prone Set Screws FDA Start: 06-21-2024 Fusion, spine, lumbar, 360 degree, starting in supine position transitioning to prone [id number] [place] Cage FDA Start: 06-21-2024 Fusion, spine, [...] starting in supine position transitioning to prone [place] Cage FDA Start: 06-21-2024 Fusion, spine, lumbar, 360 degree, starting in supine position transitioning to prone [place] Cage FDA Start: 06-21-2024 Fusion, spine, lumbar, 360 degree, starting in supine position transitioning to prone DRESSING,SURGICEL 4x8 FDA Start: 06-21-2024 Fusion, spine, lumbar, 360 degree, starting in supine position transitioning to prone Set Screws FDA Start: 06-21-2024 ([id number]) Metal-backed pat delfina prosthesis ()[id number] [id number])RR 4E1 FDA Start: 08-05-2022 ([id number]) Coated knee femu r prosthesis ()[id number] [id number])[id number](10)UC JPU FDA Start: 08-05-2022 ([id number]) Coated knee tibi a prosthesis ()[id number] [id number])607819(10)CT [id number] FDA Start: 08-05-2022 ([id number]) Tibial insert ()[id number] [id number])[id number])X8 2WR7 FDA Start: 08-05-2022 ([id number]) Coated knee femu r prosthesis ()[id number] [id number])[id number])R6 D9S FDA Start: 01-28-2023 ([id number]) Coated knee tibi a prosthesis ()[id number] [id number])022774(10)CT [id number] FDA Start: 01-28-2023 Orthopaedic ceme nt, non-antimicrobial ()[id number] [id number])[id number](10)RJ D113 FDA Start: 01-28-2023 (084800788) Polyethylene pat delfina prosthesis ()[id number] [id number])[id number])7X 9A FDA Start: 01-28-2023 (505861539) Tibial insert ()[id number] [id number])[id number](10)5P [id number] FDA Start: 01-28-2023 Goals Date Patient Goal Desired Activity /State Functional Status Date Assessment Result Facility 06-22-2024 Functional status Chair;Bedrest [facility] Work Phone: 01-31-2023 Functional status Chair [facility] Work Phone: 08-08-2022 Functional status Ambulates [facility] Work Phone: Mental Status Date Assessment Result Facility 06-22-2024 Cognitive function Level Of Cons ciousness Awake;Alert;Appropriate;Follow s Commands [facility] Work Phone: 06-22-2024 Cognitive function Voice/Name [facility] Work Phone: 04-07-2024 Cognitive function Voice/Name;Touch/Shaki ng [facility] Work Phone: 03-11-2023 Cognitive function Voice/Name [facility] Work Phone: 01-31-2023 Cognitive function Appropriate;Cooperativ e [facility] Work Phone: 01-31-2023 Cognitive function Arousable To Voice/Nam e [facility] Work Phone: 09-17-2022 Cognitive function Voice/Name [facility] Work Phone: 08-08-2022 Cognitive function Voice/Name [facility] Work Phone: Clinical Notes 08-05-2022 to 12-22-2024 Note Date & Type Note Facility 12-22-2024 Radiology Diagnostic study note [facility] Imaging Services [address] [place] [address] L/S Spine Min 4 Views MR#: [id number] Acct: [id number] Name: OZIEL BURTON Rep #: [id number] : 1970 M 54 From: Willam Valdez MD PCP: Dr. Renzo Beatty, Status: REG CLI Study:L/S Spine Min 4 Views Date of Exam: 12/21/24 Exam# [id number] Ordering Dr: Kathryn Miranda MD PROCEDURE: L/S [...] and postoperative changes as described. Reading Location: [id number] CC: Dr. Jai Miranda MD; Dr. Renzo Beatty, ~ Personnel Arbitrator: Signed [facility] 10-11-2024 Discharge summary [facility] 10-11-2024 Discharge summary Note Date/Time October 11, 2024 1:35pm [facility] Physical Therapy [address] [place] [address] / REHABILITATION SERVICES DISCHARGE SUMMARY MR#: [id number] Acct: [id number] Name: OZIEL BURTON Rep #: [id number] : 1970 54 From: Denzel Reyes DP T Referring Dr.: Dr. Jai Miranda MD Status: REG RCR Insurance: [employer]/[facility] SELF PAY INSURANCE Discharge Summary D/C [...] please feel free to call me at [phone]. Thank you for the referral of thispatient. Sincerely, Denzel Reyes, DPT Balance/Gait/Functional tests Balance/Special Test Scores Oswestry Low Back Score: 0 Improvement % Improvement: 80 <Electronically signed by Denzel Reyes DPT> 10/11/24 1136 CC: Dr. Jai Miranda MD; Dr. Renzo Beatty, DO ~ CLS Signed [facility] Work Phone: 1(523) 137-830005-28-2025 Radiology Diagnostic study note [facility] Imaging Services [address] [place], [place] [address] Lumbar Spine 2 or 3 Views MR#: [id number] Acct: [id number] Name: OZIEL BURTON Rep #: [id number] : 1970 M 54 From: Daniel Irwin MD PCP: Dr. Renzo Beatty, Status: REG CLI Study:Lumbar Spine 2 or 3 Views Date of Exam: 09/21/24 Exam# [id number] Ordering Dr: Kathryn Miranda MD PROCEDURE: LUMBAR [...] IMPRESSION: See above for details. Reading Location: [id number] CC: Dr. Jai Miranda MD; Dr. Renzo Beatty DO ~ Personnel Arbitrator: Signed [facility]05-27-2025 Evaluation note* Diagnosis Onset Date Resolution Status Admit Date Status post lumbar spinal fusion acute September 21, 2024 1 0:22am Status post lumbar spinal fusion acute December 23 10:54am [facility] Work Phone: 1(851) 300-536304-08-2025 Radiology Diagnostic study note [facility] Imaging Services [address], [place] [address] Lumbar Spine 2 or 3 Views MR#: [id number] Acct: [id number] Name: OZIEL BURTON Rep #: [id number] : 1970 M 54 From: And anni Silva DO PCP: Dr. Renzo Beatty DO Status: REG CLI Study:Lumbar Spine 2 or 3 Views Date of Exam: 08/03/24 Exam# [id number] Ordering Dr: Kathryn Miranda MD PROCEDURE: Lumbar [...] Miranda MD; Dr. Renzo Beatty DO ~ Personnel Arbitrator: Signed [facility]04-08-2025 Evaluation note* Diagnosis Onset Date Resolution Status Admit Date Status post lumbar spinal fusion acu te August 03, 2024 10:53am Status post lumbar spinal fusion acu te September 21, 2024 10:22am [facility] Work Phone: 1(273) 496-465803-11-2025 Radiology Diagnostic study note [facility] Imaging Services [address] [place] [address] Lumbar Spine 2 or 3 Views MR#: [id number] Acct: [id number] Name: OZIEL BURTON Rep #: [id number] : 1970 M 54 From: Jalyn Newby MD PCP: Dr. Renzo Beatty DO Status: REG CLI Study:Lumbar Spine 2 or 3 Views Date of Exam: 07/06/24 Exam# [id number] Ordering Dr: Nikita Coy EXAM: XR Lumbosacral [...] IMPRESSION: Postoperative changes as above. Reading [facility] CC: MOUSTAPHA Montoya; Dr. Renzo Beatty DO ~ Personnel Arbitrator: Signed [facility]02-24-2025 Evaluation note* Diagnosis Onset Date [...] fusion acute September 21, 2024 1 0:22am [facility] Work Phone: 1(373) 525-872402-24-2025 [facility] Medical Records Department [address] [place] [address] History Physical Exam 06/21/24 0723 MR#: [id number] Acct: [id number] Name: OZIEL BURTON Rep #: [id number] : 1970 54 From: Jai Miranda MD PCP: Dr. Renzo Beatty, DO Status:ADM IN Location: [place] [address] History and Physical Date of Admission: 06/21/24 MR#: [id number] Acct: [id number] Name: OZIEL BURTONY Rep #: [id number] : 1970 Provider: Dr. Jai Miranda MD Age/Sex: 54/M [place] [facility] [place] Status: Signed Intake Vital Signs 04/07/2406:01 Height [...] 06-21-24. 04/06/24: OZIEL Carlos (more content not included)...[facility] 06-11-2024 Evaluation note* Diagnosis Onset [...] spinal fusion acute August 03, 2024 10:53am [place] [employer] Work Phone: 1(193) 386-509002-14-2025 Evaluation note* Diagnosis Onset Date Resolution Status [...] fusion acute September 21, 2024 1 0:22am [facility] Work Phone: 1(756) 553-341412-23-2024 Evaluation note* Diagnosis Onset Date Resolution Status [...] spinal fusion acute August 03, 2024 10:53am [facility] Work Phone: 1(752) 105-738812-11-2024 [facility] Medical Records Department [address] [place] [address] History Physical Exam 04/07/24 0704 MR#: [id number] Acct: [id number] Name: OZIEL BURTON Rep #: [id number] : 1970 53 From: Ernesto Ramirez MD PCP: Dr. Renzo Beatty DO Status:[facility] Location: [place] [address] HPI - General HPI Narrative OZIEL BURTON, is a 53 M who presents for left shoulder arthroscopy, subacromial decompression debridement. left shoulder marked. no changes to h and p. rab, post op instructions and narcotic counselling. ok to proceed. MR#: [id number] Acct: [id number] Name: OZIEL BURTON Rep #: [id number] : 1970 Provider: Dr. Ernesto Ramirez MD Age/Sex: 53/M [place] [facility] [place] Status: Signed Intake Vital Signs 08/22/2412:24 Height [...] by me, Dr. Ernesto Ramirez MD 12/30/23 0836. Part of today???s visit was documented by [ ], acting as scribe. OZIEL BURTON is a 53 year old M here today for left shoulder pain. 2-3 months, no injuyr, lateral side and everywhere worse with motion, somewhat going d (more content not included)...[facility]12-09-2024 Evaluation note* Diagnosis Onset Date [...] pain, bilateral acute July 15, 2024 9:52am [facility] Work Phone: 1(299) 846-973904-27-2024 Discharge summary Author Jimbruce Mckay [facility] August 23, 2023 2:21pm Note Date/Time August 23, 2023 1:4 1pm [facility] Medical Records Department [address] [place] [address] Emergency Department Summary 08/23/23 MR#: [id number] Acct: [id number] Name: OZIEL BURTON Rep #:[id number] : 1970 53 From: Gonsalo BUSH [...] <ELEAZAR Mandujano - Last Filed: 08/23/23 14:10> [facility] Medical History Acute bronchitis, unspecified Alcohol use [...] Oxygen Delivery Method Room Air Room Air [facility] <ELEAZAR Mandujano - Last Filed: 08/23/23 14:10> [facility] Radi[facility] Diagnostic Testing: Clinical Impression(s) from Imaging [...] Mckay MD - Last Filed: 08/23/23 14:21> [facility] Narrative Medical decision making narrative: I have [...] 14:09 EDT Reading Location ID and State: [address] [place] [address] Tel , Service support , Discharge Plan Triage Chief Complaint: Fall ED Midlevel Provider: Gonsalo Hwang ED Provider: Jim Mckay Dx/Rx/DC Orders [...] your Primary Care Provider. Call [facility] ([phone]) or report to the closest Emergency Room. Call 911 if necessary. 08/23/23 1410 <Electronically signed by Gonsalo BUSH> Cosigner Signature (if applicable): 08/23/23 1421 <Electronically signed by Karuna MILES> CC: Dr. Renzo Beatty, DO ~ Signed [facility] Work Phone: 1(954) 838-551102-09-2024 Discharge summary Author Mayco Bridges [facility] June 06, 2023 12:50pm Note Date/Time June 06, 2023 1 2:50pm [facility] Physical Therapy [facility] [address] [place] [address] [address] [place] [address] / REHABILITATION SERVICES DISCHARGE SUMMARY MR#: [id number] Acct: [id number] Name: OZIEL BURTON Rep #: [id number] : 1970 53 From: Mayco Bridges DPT, OCS, CSCS Referring Dr.: Dr. Jason Fritz, DO Status: REG RCR Insurance: [employer] SELF PAY INSURANCE Patient Information Patient [...] 30 WOMAC Percentage: 68.7500 <Electronically signed by Mayco Bridges DPT, SHUN, CSCS> 06/06/23 1250 CC: Dr. Jason Fritz DO; Dr. Renzo Beatty DO ~ EBG Signed [facility] Work Phone: 1(326) 863-920911-14-2023 History and physical note Author Jason Fritz [facility] March 11, 2023 2:27pm Note Date/Time March 11, 2023 2:27pm [facility] Medical Records Department [address] [place] [address] History & Physical Exam 03/11/23 1427 MR#: [id number] Acct: [id number] Name: OZIEL BURTON Rep #:[id number] : 1970 52 From: Jason Fritz DO PCP: Dr. Renzo Beatty DO Status:REG [facility] Location: [place] [address]1 History and Physical Date of Admission: 03/11/23 [facility] [address] [place] [address] OFFICE VISIT Date of Service: 03/10/23 MR#: [id number] Acct: [id number] Name: OZIEL BURTON Rep #: [id number] : 1970 Provider: Dr. Jason Fritz, Age/Sex: 52/M [place] [facility] [place] Status: Signed Intake Vital Signs 11/13/2309:01 01/31/2312:59 [...] 05/30/2022 x-ray right knee: Advanced knee arthrosis xthc-tp-tylk medial compartment there is spurring noted in the lateral compartment and patellofemoral joint with subchondral cyst of the patella, varus deformity 05/30/2022 x-ray left knee: Anpn-oj-hxne medial compartment varus deformity moderate spurring patellofemoral [...] no clinicalchanges since date of exam. 03/11/23 475 <Electronically signed by Jason Fritz DO> Cosigner Signature (if applicable): CC: Dr. Jason Fritz, DO; Dr. Renzo Beatty, DO~ Signed [facility] Work Phone: 1(952) 876-314911-14-2023 Procedure [facility] 11-26-2022 Discharge summary Author Denzel Reyes [facility] November 26, 2022 4:10pm Note Date/Time November 26, 2022 4:1 1pm [facility] Physical Therapy [facility] [place] [address] / REHABILITATION SERVICES DISCHARGE SUMMARY MR#: [id number] Acct: [id number] Name: OZIEL BURTON Rep #: [id number] : 1970 52 From: Denzel Domínguez Referring Dr.: Dr. Jason Fritz DO Status: REG RCR Insurance: [employer] SELF PAY INSURANCE Discharge Summary D/C [...] please feel free to call me at [phone]. Thank you for the referral of thispatient. Sincerely, Denzel Reyes, DPT Balance/Gait/Functional tests Balance/Special Test Scores Lower Extremity Functional Score: 66 TUG Test Time Seconds: 8.02 Tug Test: <10 sec.=free mobile WOMAC Total Score: 2 WOMAC Percentage: 97.7300 <Electronically signed by Denzel Reyes DPT> 11/26/22 1610 CC: Dr. Jason Fritz DO; Dr. Renzo Beatty, DO ~ CLS Signed [facility] Work Phone: 1(933) 688-465704-12-[address] Fritz [facility] August 07, 2022 2:08pm Note Date/Time August 07, 2022 2:0 8pm [facility] Medical Records Department [address] [place] [address] Transfer to [facility] MR#: [id number] Acct: [id number] Name: MICHEALOZIEL VEL Rep #:[id number] : 1970 52 From: Jason Fritz DO PCP: Dr. Renzo Beatty DO Status:ADM IN Certification of patient admission REQUIRED AT TIME OF ADMISSION. I CERTIFY THAT POST-HOSPITAL ECF SERVICES ARE REQUIRED TO BE GIVEN ON AN IN-PATIENT BASIS BECAUSE OF THE ABOVE NAMED PATIENT'S NEED FOR SKILLED NURSING CARE ON A CONTINUING BASIS FOR THE [...] applicable): CC: Dr. Renzo Beatty DO ~ [facility] Work Phone: 1(156) 792-718904-12-[address] Fritz [facility] August 07, 2022 7:35am Note Date/Time August 07, 2022 7:3 0am [facility] Medical Records Department [address] [place] [address] Instructions for Home/Discharge Instructions 08/07/22 0729 MR#: [id number] Acct: [id number] Name: OZIEL BURTON Rep #:[id number] : 1970 52 From: Jason Fritz [...] CC: Dr. Renzo Beatty DO ~ Signed [facility] Work Phone: 1(285) 703-505104-12-[address] Fritz [facility] August 07, 2022 7:29am Note Date/Time August 07, 2022 7:2 9am [facility] Medical Records Department [address] [place] [address] Progress Note - Orthopedic 08/07/22 0726 MR#: [id number] Acct: [id number] Name: OZIEL BURTON Rep #:[id number] : 1970 52 From: Jason Fritz DO PCP: Dr. Renzo Beatty DO Status:ADM IN Location: MS3 [id number] Subjective Subjective Seen and examined. About 5 [...] Cosigner Signature (if applicable): CC: ~ Signed [facility] Work Phone: 1(102) 520-459704-11-2023 Progress note Author Ezequiel Munroe [facility] August 06, 2022 3:51pm Note Date/Time August 06, 2022 12: 53pm [facility] Medical Records Department [address] [place] [address] Progress Note - Orthopedic 08/06/22 1247 MR#: [id number] Acct: [id number] Name: OZIEL BURTON Rep #:[id number] : 1970 52 From: Ezequiel GERARD PCP: Dr. Renzo Beatty, Status:ADM IN Location: [address] Subjective Subjective Patient evaluated today at [...] 17:17 EDT Reading Location ID and State: [facility] / [place] Tel , Service support , Physical Exam [...] the wee hours of the evening or brake coupler dinkey. Patient is to continue with the polar [...] office with any questions or concerns. 08/06/22 6344 <Electronically signed by Ezequiel GERARD> Cosigner Signature (if applicable): CC: ~ Signed [facility] Work Phone: 1(168) 362-670204-10-2023 Procedure [facility] 08-05-2022 History and physical note Author Dr. Fritz [facility] August 05, 2022 12:27pm Note Date/Time August 05, 2022 12: 27pm [facility] Medical Records Department [address] [facility] [place] [address] History & Physical Exam 08/05/22 1227 MR#: [id number] Acct: [id number] Name: JANYOZIEL PEREZ Rep #:[id number] : 1970 52 From: Jason Fritz DO PCP: Dr. Renzo Beatty, DO Status:ADM IN Location: [place] [address] History and Physical Date of Admission: 08/05/22 [facility] [address] [place] [address] [address] [place] [address] OFFICE VISIT Date of Service:? 06/03/22 MR#: [id number] Acct: [id number] Name:? DEANNAOZIEL PEREZ VEL Rep #: [id number] : 1970 ? ? Provider: Dr. Jason Fritz, DO Age/Sex:? 52/M ? ? [place] [facility] [place] Status: Signed Intake Vital Signs ? 01/08/2213:12 [...] PO DAILY PRN 02/11/22 [History Confirmed 06/03/22] [facility] Medical History?(Updated 06/03/22 @ 15:[address] [...] by me, Dr. Jason Fritz, DO 06/03/22 8385. OZIEL BURTON is a 52 year old [...] 05/30/2022 x-ray right knee: Advanced knee arthrosis [id number] medial compartment there is spurring noted in the lateral compartment and patellofemoral joint with subchondral cyst of the patella, varus deformity 05/30/2022 x-ray left knee: [id number] medial compartment varus deformity moderate spurring patellofemoral [...] Fritz DO; Dr. Renzo Beatty DO~ Signed [facility] Work Phone: Discharge summary Author Jason Fritz [facility] March 11, 2023 3:00pm Note Date/Time March 11, 2023 3:01pm [facility] Medical Records Department [facility] [place] [address] Instructions for Home/Discharge Instructions 03/11/23 1459 MR#: [id number] Acct: [id number] Name: OZIEL BURTON Rep #:[id number] : 1970 52 From: Jason Fritz DO PCP: Dr. Renzo Beatty DO Status:REG COC Discharge Instructions Diet Discharge Diet: No restrictions [...] for Your Visit: Left knee manipulation under hat former Provider: Jason Fritz Primary Care Provider: Renzo [...] CC: Dr. Renzo Beatty DO ~ Signed [facility] Work Phone: Evaluation note* Diagnosis Onset Date Resolution Status Encounter for screening for other viral diseases acute Left ear impacted cerumen ac [place] Left otitis media acute Segmental and somatic [...] pressure) dependence acute Degenerative disc disease ac [place] GERD (gastroesophageal reflux disease) acute History of [...] wound of extremity c hronic Hypertension chronic [facility] Work Phone: Evaluation note* Diagnosis [...] pressure) dependence acute Degenerative disc disease ac [place] GERD (gastroesophageal reflux disease) acute History of [...] pressure) dependence acute Degenerative disc disease ac [place] GERD (gastroesophageal reflux disease) acute History of [...] region acute DDD (degenerative disc disease) chronic [facility] Work Phone: Evaluation note* Diagnosis [...] pressure) dependence acute Degenerative disc disease ac [place] GERD (gastroesophageal reflux disease) acute History of [...] pressure) dependence acute Degenerative disc disease ac [place] GERD (gastroesophageal reflux disease) acute History of [...] wound of extremity c hronic Hypertension chronic [facility] Work Phone: Evaluation note* Diagnosis [...] pressure) dependence acute Degenerative disc disease ac [place] GERD (gastroesophageal reflux disease) acute History of [...] pressure) dependence acute Degenerative disc disease ac [place] GERD (gastroesophageal reflux disease) acute History of [...] pressure) dependence acute Degenerative disc disease ac [place] GERD (gastroesophageal reflux disease) acute History of [...] wound of extremity c hronic Hypertension chronic [facility] Work Phone: Evaluation note* Diagnosis Onset Date Resolution Status Osteoarthritis of knees, bilateral acute Osteoarthritis of knees, bilateral acute Osteoarthritis of knees, bilateral acute Arthritis acute CPAP (continuous positive airway pressure) dependence acute Degenerative disc disease ac [place] GERD (gastroesophageal reflux disease) acute History of [...] DJD acute Osteoarthritis of right knee acute [facility] Work Phone: Evaluation note* Diagnosis Onset Date Resolution Status Acute bronchitis, unspecified acute Contact with and (suspected) exposure to other viral communicable diseases acute Osteoarthritis of knees, bilateral acute Decreased pedal pulses acute Left knee DJD acute Osteoarthritis of right knee acute [facility] Work Phone: Evaluation note* Diagnosis [...] Status post total right knee replacement acute [facility] Work Phone: Evaluation note* Diagnosis [...] stiffness noneactive Spondylolisthesis acute Orthopedic aftercare acute [facility] Work Phone: Evaluation note* Diagnosis [...] acute Spondylolisthesis acute Left knee DJD acute [facility] Work Phone: Evaluation note* Diagnosis [...] acute Spondylolisthesis acute Left knee DJD acute [facility] Work Phone: Evaluation note* Diagnosis Onset Date Resolution Status Left knee DJD acute Left knee DJD acute Left knee pain acute Orthopedic aftercare acute Other acute postprocedural pain acute S/P total knee arthroplasty acute Orthopedic aftercare acute Arthrofibrosis of total knee arthroplasty acute S/P total knee arthroplasty acute Stiffness of left knee nonea ctive [facility] Work Phone: Evaluation note* Diagnosis Onset Date Resolution Status Left knee DJD acute Left knee pain acute Orthopedic aftercare acute Other acute postprocedural pain acute S/P total knee arthroplasty acute Orthopedic aftercare acute Arthrofibrosis of total knee arthroplasty acute S/P total knee arthroplasty acute Stiffness of left knee nonea ctive Strain of right hand acute [facility] Work Phone: Evaluation note* Diagnosis Onset Date Resolution Status Orthopedic aftercare acute Other acute postprocedural pain acute S/P total knee arthroplasty acute Orthopedic aftercare acute Arthrofibrosis of total knee arthroplasty acute S/P total knee arthroplasty acute Stiffness of left knee nonea ctive Strain of right hand acute Orthopedic aftercare acute [facility] Work Phone: Evaluation note* Diagnosis Onset Date Resolution Status Orthopedic aftercare acute Arthrofibrosis of total knee arthroplasty acute S/P total knee arthroplasty acute Stiffness of left knee nonea ctive Strain of right hand acute Orthopedic aftercare acute [facility] Work Phone: Evaluation note* Diagnosis Onset Date Resolution Status Strain of right hand acute Orthopedic aftercare acute Degenerative disc disease, cervical acute Tendinitis of both rotator cuffs acute [facility] Work Phone: Evaluation note* Diagnosis Onset Date Resolution Status Degenerative disc disease, cervical acute Tendinitis of both rotator cuffs acute [facility] Work Phone: Hospital Discharge instructions Additional Instructions Use the walking boot when you are up and around. Ice. Follow-up outpatient [facility] Work Phone: Progress note Author Ezequiel Munroe [facility] August 08, 2022 4:07pm Note Date/Time August 08, 2022 4:0 0pm [facility] Medical Records Department [address] [place] [id number] Progress Note - Orthopedic 08/08/22 1554 MR#: [id number] Acct: [id number] Name: OZIEL BURTON Rep #:[id number] : 1970 52 From: Ezequiel GERARD PCP: Dr. Renzo Beatty, DO Status:ADM IN Location: [place] [address] Subjective Subjective Patient states that he has [...] without complication. Patient was transferred up to [facility] where stay was unremarkable without any concerns. [...] or concerns. This note was generated with [employer] dictation software. It may contain incorrectwords, spelling, and punctuation that were not noted in checking the note beforesigning. 08/08/22 5390 <Electronically signed by Ezequiel GERARD> Cosigner Signature (if applicable): CC: ~ Signed [facility] Work Phone: Reason for referral (narrative)No reason for referral information availableWTri[facility] Work Phone: Summary Purpose Family History No Family History Records Found Relationship Condition Age at Onset Recorded Date/T emilia Not Specified Malignant neoplasm of breast Unknown Advance Directives No Advanced Directives Records FoundDocuments on File Type Date Recorded Patient Medical Device Expl anation Advance Directive(s) 09/02/2017 5:40 AM Advance Directive Response Recorded Date/ Time Advance Directives Yes May 23, 2016 9:13am Living Will No May 23 11:47am Power of Slitter Scorer Cut Off Operator No May 23, 2021 11:47am Advance Directive Response Recorded Date/ Time Advance Directives Yes May 23, 2016 8:13am Living Will No May 23 10:47am Power of Slitter Scorer Cut Off Operator No May 23, 2021 10:47am Advance Directive Response Recorded Date/ Time Advance Directives Yes May 23, 2016 9:13am Living Will No August 05, 2022 6:30pm Power of Slitter Scorer Cut Off Operator No August 05 6:30pm Advance Directive Response Recorded Date/ Time Name of Medical Power of Slitter Scorer Cut Off Operator IRENE September 17, 2022 12:26pm Advance Directives Yes September 06 10:09am Living Will Yes September 17, 2022 1 2:26pm Power of Slitter Scorer Cut Off Operator Yes September 17, 2022 12:26pm Advance Directive Response Recorded Date/ Time Name of Medical Power of Slitter Scorer Cut Off Operator -Irene January 28, 2023 11:47am Name of Medical Power of Slitter Scorer Cut Off Operator March 10, 2023 11:58am Advance Directives Yes September 06 9:09am Living Will Yes March 10, 023 11:58am Power of Slitter Scorer Cut Off Operator Yes March 10, 2023 11:58am Advance Directive Response Recorded Date/ Time Advance Directives Yes September 06 9:09am Living Will No May 26 12:56pm Power of Slitter Scorer Cut Off Operator No May 26, 2023 12:56pm Name of Medical Power of Slitter Scorer Cut Off Operator March 10, 2023 11:58am Advance Directive Response Recorded Date/ Time Advance Directives Yes September 06 10:09am Living Will No May 26 1:56pm Power of Slitter Scorer Cut Off Operator No May 26, 2023 1:56pm Advance Directive Response Recorded Date/ Time Advance Directives Yes September 06 10:09am Living Will No August 23, 2023 1:32pm Power of Slitter Scorer Cut Off Operator No August 22 1:32pm Advance Directive Response Recorded Date/ Time Living Will Yes June 21 6:04pm Do you have a Healthcare Power of Slitter Scorer Cut Off Operator? Yes June 21, 2024 6:04pm Name of Medical Power of Slitter Scorer Cut Off Operator June 21, 2024 6:04pm Living Will Yes February 02 10:05am Do you have a Healthcare Power of Slitter Scorer Cut Off Operator? Yes February 03, 2024 10:05am Living Will Yes March 29 9:30am Do you have a Healthcare Power of Slitter Scorer Cut Off Operator? Yes March 29, 2024 9:30am Name of Medical Power of Slitter Scorer Cut Off Operator IRENE March 29, 2024 9:30am Advance Directives Yes September 06 10:09am Advance Directive Response Recorded Date/ Time Living Will Yes June 21, 6:04pm Do you have a Healthcare Power of Slitter Scorer Cut Off Operator? Yes June 21, 2024 6:04pm Name of Medical Power of Slitter Scorer Cut Off Operator June 21, 2024 6:04pm Advance Directives Yes [...] 9 :29am ASSESS BMD, FREQUENT STEROID USE [facility] 2023 10:43am LUMBAR SPINE April [...] April 05, 2024 2:48pm Spondylolisthesis, lumbar region [facility] 2023 2:48pm Left shoulder pain April 07, 2024 5:29am Tendinitis of both rotator cuffs [facility] 2023 5:29am Left shoulder pain April 09, 2024 9:47am Tendinitis of both rotator cuffs [facility] 2023 9:47am Orthopedic aftercare April 19, 2024 [...] 9 :29am ASSESS BMD, FREQUENT STEROID USE [facility] 2023 10:43am LUMBAR SPINE April 05, 2024 [...] section and content) DATE CREATED AUTHOR 04/06/2018 [facility] DATE CREATED AUTHOR AUTHOR'S ORGANIZ ATION 05/14/2019 [facility] DATE CREATED AUTHOR AUTHOR'S ORGANIZ ATION [facility] Source Comments (unrecognize d section and content) In the event this informatio n is protected by the Federal Confidentiality of Alcohol and Drug Abuse Patient Records regulations: The Federal rules restrict any use of the information to criminally investigate or prosecute any alcohol or drug abuse patient.[facility] System[facility] the event this information is protected by the Federal Confidentiality of Alcohol and Drug Abuse Patient Records regulations: The Federal rules restrict any use of the information to criminally investigate or prosecute any alcohol or drug abuse patient.[facility] Care Teams (unrecognized sec tion and content) [...] DO Primary Care Provider Active Dr. Jason rFitz DO Admit Provider, Referring Provider, Other Provider [...] DO Primary Care Provider Active Dr. Star aVnegas MD Attending Provider Active Dr. Christiano Newby [...] Status: Inactive Member Role Status Dates Dr. Renoz Beatty DO Primary Care Provider Active Start: [...] BE BASED ON THE PRIMARY CLINICAL RECORDS. [employer] provides no warranty or guarantee of the accuracy or completeness of information in this document.
--- NOTE | 2025-04-20 10:21 | CT_ITS ---
PROCEDURE: SPINE LUMBAR WITHOUT CONTRAST 04/20/2025 REASON FOR EXAM: PAIN X2 MONTHS WORSENING, HX OF FUSION TECHNIQUE: Procedure Code: CTSPL Modality: CT Procedure: SPINE LUMBAR WITHOUT CONTRAST Coronal and Sagittal reconstruction series were provided. One or more dose reduction techniques were used (e.g., Automated exposure control, adjustment of the mA and/or kV according to patient size, use of iterative reconstruction technique COMPARISON: None. RADIATION DOSE SUMMARY: CTDlvol: 39.05 mGy DLP: 1222.87 mGycm FINDINGS: Vertebrae: No acute bony elements. Status post posterior fusion and spacers placement L3 through S1. Alignment: Anterolisthesis L5 on S1 by 2 mm. L1-2: Unremarkable. L2-3: Disc bulge. Facet joints arthropathy. Mild inferior bilateral foramina stenosis. Mild canal stenosis. L3-4: No significant foraminal or canal stenosis. L4-5: No significant foraminal or canal stenosis. L5-S1: Facet joint arthropathy. Moderate right foramina stenosis. No significant canal stenosis. Sacrum: No acute bony abnormalities. CT/Spine Lumbar without Contrast IMPRESSION: Postsurgical changes without significant canal stenosis. No evidence of hardwa re loosening. Moderate right foramina stenosis at L5-S1. Reading Location: [id number]
== END | disposition home or self-care (01) ==
LOC: MRI 09:28
PROVIDERS: PCP Family Medicine; Referring Provider Student in an Organized Health Care Education/Training Program; Visit Provider Student in an Organized Health Care Education/Training Program
DX: M51.360 Other intervertebral disc degeneration, lumbar region with discogenic back pain only (principal); Z98.1 Arthrodesis status; M79.604 Pain in right leg; M79.605 Pain in left leg
CPT/HCPCS: 72131; 72148